=== PATIENT | male | born 1980 | race African-American/Black ===

== ENCOUNTER 2019-03-13 12:16 | Emergency (ER) | payer OTHER ==
[~2019-03-13] VITALS: Ht 200.7 cm; Wt 95.3 kg
--- OUTSIDE RECORDS SUMMARY | 2019-03-13 12:19 | XMS REPORT ---
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 Active Henry Dicks OD Hypermetropia Medication List Medication Instructions Start Date Stop Date Generic Name NDC Status Provider Patient Instruction BACTRIM TABLET SULFAMETHOXAZOLE-TRIMETHOPRIM TABS 62354867598 Active Henry Dicks OD Active DESCOVY 200-25 MG ORAL TABLET EMTRICITABINE-TENOFOVIR AF 64438888709 Active Henry Dicks OD Active NORVIR TABLET RITONAVIR TABS 80454052626 Active Henry Dicks OD Active TRUVADA TABLET EMTRICITABINE-TENOFOVIR DF TABS 68119286501 Active Henry Dicks OD Active Procedures Code Procedure Name Date Entry Date Standard Description [id number] Dispensing Visit (UNLIVSTED OPHTHALMOLOGICAL SERVICE/PROCEDURE) 14:17:56 CDT [id number] New Patient Intermediate Opt - [id number] 09:47:53 CDT
--- OUTSIDE RECORDS SUMMARY | 2019-03-13 12:19 | XMS REPORT ---
[facility] Address Unknown Phone Unavailable Care Team Providers Care Glue Specialty Supervisor Name Role Phone UNKNOWN, REFFERING PP Unavailable Payers Payer Name Policy Type Policy Number Effective Date Expiration Date Problems This patient has no known problems. Allergies, Adverse Reactions, Alerts Allergy Name Allergy Type Status Severity Reaction(s) Onset Date Inactive Date Treating Clinician Comments No Known Allergies DA Active U 2019-02-28 00:00:00 ASPIRIN DA Active U 2005-10-16 00:00:00 No Known Contrast Allergies DA Active U 2005-10-16 00:00:00 No Known Food Allergies DA Active U 2005-10-16 00:00:00 No Known Other Allergies DA Active U 2005-10-16 00:00:00 Medications This patient has no known medications. Encounters Start Date/Time End Date/Time Encounter Type Admission Type Attending Clinicians Care Facility Care Department Encounter ID 2018-01-06 20:36:16 2018-01-06 20:36:16 Emergency [facility] MED [id number] 2016-09-16 15:48:00 2016-09-16 15:48:00 Emergency E [facility] MED [id number] Results Test Description Test Time Test Comments Text Results Atomic Results Result Comments - DUP AB/PEL/SC COMP 2019-02-28 11:31:00 Name: QUYEN COCHRAN [facility] : 1980 Age/S: 38 / M [address] Unit #: [id number] Loc: [place] [address] Phys: Kyra Lira MD Acct: [id number] Dis Date: Status: REG ER PHONE #: [phone] Exam Date: 02/28/2019 1110 FAX #: [phone] Reason: scrotal pain EXAMS: CPT CODE: [id number] DUP AB/PEL/SC COMP [id number] REASON FOR EXAM: testicular pain, vomiting EXAM ORDER DATE: 02/28/2019 8:52 AM Attending MBradley: Kyra Lira MD PROCEDURE: - US SCROTUM AND CNTS, - DUP AB/PEL/SC COMP Technique: Duplex scan was performed using grayscale imaging as well as color Doppler and spectral Doppler imaging of the testicles and epididymides. FINDINGS: Right Testicle: Size: 4.5 x 1.6 x 2.6 cm Parenchyma: Normal homogenous echogenicity Masses/calcifications: Testicular microliths are present. Flow: Normal blow is seen Right Epididymis: Size: 3.2 x 0.5 x 0.7 cm Masses: None Left Testicle: Size: 3.8 x 1.7 x 2.4 cm Parenchyma: Normal homogenous echogenicity Masses/calcifications: None Flow: Normal blow is seen Left Epididymis: Size: 2.6 x 0.3 x 0.7 cm Masses: None Hydrocele: Present bilaterally Varicocele: None Scrotal wall: Normal. No edema or mass. IMPRESSION: Right testicular microlithiasis. According to the Society of Urogenital Radiology (ESUR), annual ultrasound follow-up until age 55 is recommended, if one of the following risk factor are present: PAGE 1 Signed Report (CONTINUED) Name: QUYEN COCHRAN [facility] : 1980 Age/S: 38 / M [address] [facility] Unit #: [id number] Loc: [place] [address] Phys: Kyra Lira MD Acct: [id number] Dis Date: Status: REG ER PHONE #: [phone] Exam Date: 02/28/2019 1110 FAX #: [phone] Reason: scrotal pain EXAMS: CPT CODE: [id number] DUP AB/PEL/SC COMP 22081 <Continued> personal/family history of germ cell tumour maldescent orchidopexy testicular atrophy No evidence of torsion or orchitis. at 1131 Reported and signed by: Alli Felipe MD CC: Kyra Lira MD Technologist: ARNULFO COATS RT(R),SRINIVASA Trnohb Date/Time: 02/28/2019 (1131) [email or web address] PAGE 2 Signed Report - US SCROTUM AND CNTS 2019-02-28 11:31:00 [facility] 1980 [facility]S: 38 / M [address] [facility] [id number] Loc: [place] [address] Phys: Kyra Lira MD Acct: [id number] Dis Date: Status: REG ER PHONE #: [phone] Exam Date: 02/28/2019 1110 FAX #: [phone] Reason: testicular pain, vomiting EXAMS: CPT CODE: [id number] US SCROTUM AND CNTS 02997 REASON FOR EXAM: testicular pain, vomiting EXAM ORDER DATE: 02/28/2019 8:52 AM Attending M.D.: Kyra Lira MD PROCEDURE: - US SCROTUM AND CNTS, - DUP AB/PEL/SC COMP Technique: Duplex scan was performed using grayscale imaging as well as color Doppler and spectral Doppler imaging of the testicles and epididymides. FINDINGS: Right Testicle: Size: 4.5 x 1.6 x 2.6 cm Parenchyma: Normal homogenous echogenicity Masses/calcifications: Testicular microliths are present. Flow: Normal blow is seen Right Epididymis: Size: 3.2 x 0.5 x 0.7 cm Masses: None Left Testicle: Size: 3.8 x 1.7 x 2.4 cm Parenchyma: Normal homogenous echogenicity Masses/calcifications: None Flow: Normal blow is seen Left Epididymis: Size: 2.6 x 0.3 x 0.7 cm Masses: None Hydrocele: Present bilaterally Varicocele: None Scrotal wall: Normal. No edema or mass. IMPRESSION: Right testicular microlithiasis. According to the Society of Urogenital Radiology (ESUR), annual ultrasound follow-up until age 55 is recommended, if one of the following risk factor are present: PAGE 1 Signed Report (CONTINUED) [facility] 1980 Age/S: 38 / M [address] [facility] Unit #: [id number] Loc: [place] [address] Phys: Kyra Lira MD Acct: [id number] Dis Date: Status: REG ER PHONE #: [phone] Exam Date: 02/28/2019 1110 FAX #: [phone] Reason: testicular pain, vomiting EXAMS: CPT CODE: [id number] US SCROTUM AND CNTS 95709 <Continued> personal/family history of germ cell tumour maldescent orchidopexy testicular atrophy No evidence of torsion or orchitis. at 1131 Reported and signed by: Alli Felipe MD CC: Kyra Lira MD Technologist: ARNULFO COATS RT(R),RDMS Trnscb Date/Time: 02/28/2019 (1131) t.[email or web address] Orig Print D/T: S: 02/28/2019 (3480) Probe: PAGE 2 Signed Report DRUGS OF ABUSE SCREEN UR 2019-02-28 10:46:00 UA PH DIPSTICK (test code=SP) 6.0 5.0-8.0 URN COCAINE (test code=COCAURN) NEGATIVE <300 ng/mL URN CANNABINOIDS (test code=CANNABURN) POSITIVE <50 ng/mL This test provides only a preliminary test result. A morespecific alternate chemical method must be used in order toobtain a confirmed analytical result. Gas chromatography/mass spectrometry (GC/MS) is thepreferred confirmatory method. Other chemical confirmationmethods are available. Clinical consideration and professional judgment should be applied to any drug of abusetest result, particularly when preliminary positive resultsare used.Unconfirmed screening results must not be used fornon-medical purposes (e.g., employment testing, legaltesting). URN AMPHETAMINE (test code=AMPHETURN) NEGATIVE <1000 ng/mL URN BARBITURATE (test code=BARBITURN) NEGATIVE <200 ng/mL URN BENZODIAZEPINE (test code=BENZOURN) NEGATIVE <200 ng/mL URN OPIATES (test code=OPIATURN) POSITIVE <300 ng/mL This test provides only a preliminary test result. A morespecific alternate chemical method must be used in order toobtain a confirmed analytical result. Gas chromatography/mass spectrometry (GC/MS) is thepreferred confirmatory method. Other chemical confirmationmethods are available. Clinical consideration and professional judgment should be applied to any drug of abusetest result, particularly when preliminary positive resultsare used.Unconfirmed screening results must not be used fornon-medical purposes (e.g., employment testing, legaltesting). URN PHENCYCLIDINE (PCP) (test code=PHENCURN) NEGATIVE <25 ng/mL URN METHADONE (test code=METHAURN) NEGATIVE <300 ng/mL ADD ON AT 1002URINALYSIS [id number] 10:32:00* Test Item Value Reference Range Comments UA COLOR (test code=COLU) YELLOW YELLOW UA APPEARANCE (test code=APPU) CLEAR CLEAR UA GLUCOSE DIPSTICK (test code=DGLUU) NEGATIVE mg/dL NEGATIVE UA BILIRUBIN DIPSTICK (test code=BILU) NEGATIVE mg/dL NEGATIVE UA KETONE DIPSTICK (test code=KETU) NEGATIVE mg/dL NEGATIVE UA SPECIFIC GRAVITY (test code=SGU) 1.025 1.001-1.035 UA BLOOD DIPSTICK (test code=MARIEL) 0.2 mg/dL (2+) mg/dL NEGATIVE UA PH DIPSTICK (test code=SP) 6.0 5.0-8.0 UA PROTEIN DIPSTICK (test code=PROU) 30 (1+) mg/dL NEGATIVE UA UROBILINIOGEN DIPSTICK (test code=URO) 2.0 (1+) mg/dL NEGATIVE UA NITRITE DIPSTICK (test code=NANCY) NEGATIVE NEGATIVE UA LEUKOCYTE ESTERASE W REFLEX (test code=LEUUR) NEGATIVE Liset/uL NEGATIVE UA WBC (test code=WBCU) 0-5 per HPF 0-5 UA RBC (test code=RBCU) 21-50 #/HPF 0-5 UA EPITHELIAL CELLS (test code=EPIU) FEW per HPF FEW UA BACTERIA (test code=BACU) FEW #/HPF NONE UA HYALINE CAST (test code=HYALU) 0-2 #/LPF 0-5 UA MUCUS (test code=MUCU) FEW #/LPF FEW Urine Source? Clean CatchDRUGS OF ABUSE SCREEN [id number] 10:32:00* Test Item Value Reference Range Comments UA PH DIPSTICK (test code=SP) 6.0 5.0-8.0 URN COCAINE (test code=COCAURN) <300 ng/mL URN CANNABINOIDS (test code=CANNABURN) <50 ng/mL URN AMPHETAMINE (test code=AMPHETURN) <1000 ng/mL URN BARBITURATE (test code=BARBITURN) <200 ng/mL URN BENZODIAZEPINE (test code=BENZOURN) <200 ng/mL URN OPIATES (test code=OPIATURN) <300 ng/mL URN PHENCYCLIDINE (PCP) (test code=PHENCURN) <25 ng/mL URN METHADONE (test code=METHAURN) <300 ng/mL ADD ON AT [address] [place] [address] W/O [id number] 10:13:00* Test Item Value Reference Range Comments WHITE BLOOD CELL (test code=WBC) 8.5 K/mm3 4.5-12.5 RED BLOOD CELL (test code=RBC) 4.13 mill/mm3 4.0-5.8 HEMOGLOBIN (test code=HGB) 13.7 gram/dL 13.0-17.5 HEMATOCRIT (test code=HCT) 40.4 % 42.0-52.0 MEAN CELL VOLUME (test code=MCV) 97.8 fL 80-98 MEAN CELL HGB (test code=MCH) 33.2 picogram 27.0-33.0 MEAN CELL HGB CONCETRATION (test code=MCHC) 33.9 gram/dL 33.0-36.0 RED CELL DISTRIBUTION WIDTH (test code=RDW) 12.0 % 11.6-16.2 PLATELET COUNT (test code=PLT) 188 K/mm3 150-450 MEAN PLATELET VOLUME (test code=MPV) 11.4 fL 6.7-11.0 BASIC METABOLIC [id number] 10:10:00* Test Item Value Reference Range Comments SODIUM (test code=NA) 144 mmol/L 136-145 POTASSIUM (test code=K) 3.4 mmol/L 3.5-5.1 CHLORIDE (test code=CL) 110.0 mmol/L 98-107 CARBON DIOXIDE (test code=CO2) 20.0 mmol/L 21-32 ANION GAP (test code=GAP) 17.4 10-20 GLUCOSE (test code=GLU) 141 mg/dL 74-106 BLOOD UREA NITROGEN (test code=BUN) 12 mg/dL 7-18 GLOMERULAR FILTRATION RATE (test code=GFR) 51 mL/min >=60 Estimated GFR by using Modified MDRD formula.Chronic kidney disease is defined as either kidney damageor GFR <60 mL/min/1.73 m2 for >3 months. CREATININE (test code=CREAT) 1.80 mg/dL 0.7-1.3 BUN/CREATININE RATIO (test code=BUN/CREA) 6.9 10-20 CALCIUM (test code=CA) 9.8 mg/dL 8.5-10.1 HEPATIC FUNCTION [id number] 10:10:00* Test Item Value Reference Range Comments TOTAL PROTEIN (test code=PROT) 8.6 gram/dL 6.4-8.2 ALBUMIN (test code=ALB) 4.4 g/dL 3.4-5.0 GLOBULIN (test code=GLOB) 4.2 gram/dL 2.7-4.2 ALBUMIN/GLOBULIN RATIO (test code=A/G) 1.0 0.75-1.50 BILIRUBIN TOTAL (test code=BILT) 0.60 mg/dL 0.0-1.0 BILIRUBIN DIRECT (test code=BILD) 0.15 mg/dL 0.0-0.20 SGOT/AST (test code=AST) 17 IUnit/L 15-37 SGPT/ALT (test code=ALT) 19 IUnit/L 12-78 ALKALINE PHOSPHATASE TOTAL (test code=ALKP) 97 IUnit/L 45-117 Note change in reference range due to change in reagent. [id number] 10:10:00* Test Item Value Reference Range Comments LIPASE (test code=LIP) 123 U/L 73.0-393.0 [id number] 10:10:00* Test Item Value Reference Range Comments TROPONIN-I (test code=TROPI) <0.015 ng/mL 0-0.045 BASIC METABOLIC [id number] 09:58:00* Test Item Value Reference Range Comments SODIUM (test code=NA) 144 mmol/L 136-145 POTASSIUM (test code=K) 3.4 mmol/L 3.5-5.1 CHLORIDE (test code=CL) 110.0 mmol/L 98-107 CARBON DIOXIDE (test code=CO2) mmol/L 21-32 ANION GAP (test code=GAP) 10-20 GLUCOSE (test code=GLU) mg/dL 74-106 BLOOD UREA NITROGEN (test code=BUN) mg/dL 7-18 GLOMERULAR FILTRATION RATE (test code=GFR) mL/min >=60 CREATININE (test code=CREAT) mg/dL 0.7-1.3 BUN/CREATININE RATIO (test code=BUN/CREA) 10-20 CALCIUM (test code=CA) mg/dL 8.5-10.1 HEPATIC FUNCTION [id number] 09:58:00* Test Item Value Reference Range Comments TOTAL PROTEIN (test code=PROT) gram/dL 6.4-8.2 ALBUMIN (test code=ALB) g/dL 3.4-5.0 GLOBULIN (test code=GLOB) gram/dL 2.7-4.2 ALBUMIN/GLOBULIN RATIO (test code=A/G) 0.75-1.50 BILIRUBIN TOTAL (test code=BILT) mg/dL 0.0-1.0 BILIRUBIN DIRECT (test code=BILD) mg/dL 0.0-0.20 SGOT/AST (test code=AST) IUnit/L 15-37 SGPT/ALT (test code=ALT) IUnit/L 12-78 ALKALINE PHOSPHATASE TOTAL (test code=ALKP) IUnit/L 45-117 [id number] 09:58:00* Test Item Value Reference Range Comments LIPASE (test code=LIP) U/L 73.0-393.0 [id number] 09:58:00* Test Item Value Reference Range Comments TROPONIN-I (test code=TROPI) ng/mL 0-0.045 - CT ABD PELVIS W/O [id number] 09:34:00 Name: QUYEN COCHRAN [facility] : 1980 Age/S: 38 / M [address] [facility] Unit #: [id number] Loc: [place] [address] Phys: Kyra Lira MD Acct: [id number] Dis Date: Status: REG ER PHONE #: [phone] Exam Date: 02/28/2019904 FAX #: [phone] Reason: LLQ ttp, vomiting EXAMS: CPT CODE: [id number] CT ABD PELVIS W/O CONT [id number] REASON FOR EXAM: LLQ ttp, vomiting EXAM ORDER DATE: 02/28/2019 8:52 AM Ordering M.D.: Kyra Lira MD PROCEDURE: - CT ABD PELVIS W/O CONT noncontrast axial CT images were acquired through the abdomen/pelvis at 5 mm intervals. Sagittal and coronal reformatted images were generated. Automated exposure control was utilized for this reduction. Phases of contrast: None COMPARISON: CT abdomen and pelvis February 24, 2019 FINDINGS: The absence of IV contrast limits sensitivity of this exam for the detection of soft tissue pathology Visualized thorax: There are cysts in the right lung base is unchanged from the prior exam and may be sequela from prior bronchiolitis. Otherwise visualized thorax is grossly within normal limits Hepato biliary system: Grossly normal Pancreas: Grossly normal Spleen: Grossly normal Adrenal glands: Grossly normal Genitourinary system: There is a 7 mm calyceal stone in the inferior pole of the left kidney which is unchanged from the previous study. There are a few cystic lesions scattered throughout both kidneys which are moshe sly unchanged. No hydronephrosis or hydroureter and no perinephric or chuck ureteral fat stranding to suggest inflammation. Remainder of the genitouri nary system is within normal limits. The left testicle which was previousl y seen in the inguinal canal is now in the scrotal sac. Shirley rointestinal tract and appendix: Appendix is not clearly visualized howeve r there are no inflammatory changes in the right lower abdomen in the expe cted region of the appendix. PAGE 1 Signed Re port (CONTINUED) Name: SAMMIEQUYEN T [facility] : 1980 Age/S: 38 / M [address] Unit #: [id number] Loc: [place] [address] Phys: Kyra Lira MD Acct: [id number] Dis Date: Status: REG ER PHONE #: [phone] Exam Date: 02/28/2019 09 FAX #: [phone] Reason: LLQ ttp, vomiting EXAMS: CPT CODE: [id number] CT ABD PELVIS W/O CONT 76134 <Continued> Abdominal vascular structures: Circumaortic left renal vein. Mild atherosclerotic disease in the iliac arteries. These findings are unchanged. Peritoneum and retroperitoneum: No free fluid or free air. No omental or mesenteric masses. No abnormal lymph nodes. Musculoskeletal structures and abdominal wall: There is disc degeneration at L5-S1, also seen on the prior exam. Otherwise no changes IMPRESSION: No significant change from prior examination. Nonobstructing 7 mm left renal stone is unchanged from the prior exam. The patient's left lower quadrant pain may reflect referred pain from the stone. However no inflammatory changes are seen in the left kidney or left ureter. No abnormalities of the gastrointestinal tract in the left lower abdomen. Location: [facility] at 0934 Reported and signed by: Alli Felipe MD CC: Kyra Lira MD Technologist:Radames Chang RT(R),(MR),(CT) CTDI: DLP: Trnscb Date/Time: 02/28/2019 (0934) [email or web address] Orig Print D/T: S: 02/28/2019 (0937) PAGE 2 Signed Report - CT ABD PELVIS W/O [id number] 16:32:00 Name: QUYEN COCHRAN [facility] : 1980 Age/S: 38 / M [address] [facility] Unit #: [id number] Loc: [place] [address] Phys: Trudy Benjamin NP Acct: [id number] Dis Date: Status: REG ER PHONE #: [phone] Exam Date: 02/24/2019 1430 FAX #: [phone] Reason: abdominal pain EXAMS: CPT CODE: [id number] CT ABD PELVIS W/O CONT [id number] REASON FOR EXAM: abdominal pain EXAM ORDER DATE: 02/24/2019 2:18 PM Ordering Annetta: Trudy Benjamin NP PROCEDURE: - CT ABD PELVIS W/O CONT noncontrast axial CT images were acquired through the abdomen/pelvis at 5 mm intervals. Sagittal and coronal reformatted images were generated. Automated exposure control was utilized for this reduction. Phases of contrast: None COMPARISON: None FINDINGS: The absence of IV contrast limits sensitivity of this exam for the detection of soft tissue pathology Visualized thorax: There is an air cyst in the right lung base measuring 4.7 x 3.3 cm cross-sectionally which may be sequela of prior bronchiolitis. This is likely a benign finding. Otherwise the visualized thorax is grossly within normal limits Hepatobiliary system: Grossly normal Pancreas: Grossly normal Spleen: Grossly normal Adrenal glands: Grossly normal Genitourinary system: Nonobstructing stone in the lower pole of the right kidney measures up to 7 mm in size. No inflammatory changes in the perinephric fat the left testicle appears to be in the inguinal canal. Gastrointestinal tract and appendix: Appendix is not visualized however there are no inflammatory changes in the lower quadrant at the expected region of the appendix. Remainder of the gastrointestinal tract is grossly within normal limits Abdominal vascular structures: Circumaortic left renal vein. Mild atherosclerotic disease in the common iliac arteries. Otherwise PAGE 1 Signed Report (CONTINUED) Name: QUYEN COCHRAN [facility] : 1980 Age/S: 38 / M [address] [facility] Unit #: [id number] Loc: [place] [address] Phys: Trudy Benjamin NP Acct: [id number] Dis Date: Status: REG ER PHONE #: [phone] Exam Date: 02/24/2019 1430 FAX #: [phone] Reason: abdominal pain EXAMS: CPT CODE: [id number] CT ABD PELVIS W/O CONT 83754 < Continued> grossly normal Peritoneum and retroperitoneum: No free fluid or free air. No omental or mesenteric masses. No abnormal lymph nodes. Musculoskeletal structures and abdominal wall: Disc degeneration is seen at L5-S1 with vacuum phenomenon. Otherwise grossly normal IMPRESSION: Nonobstructing 7 mm stone in the inferior pole of the left kidney. No stranding of the perinephric fat to suggest inflammatory changes of the left kidney. The left testicle appears to be within the inguinal canal. Correlate with physical exam. Location: [facility] at 1632 Reported and signed by: Alli Felipe MD CC: Trudy Benjamin STAFF REGISTERED NURSE; Melyssa Ramirez DO Technologist:Pavel Maciel RT(R) CTDI: DLP: Trnscb Date/Time: 02/24/2019 (522) [id number] Orig Print D/T: S: 02/24/2019 (8565) PAGE 2 Signed Report DRUGS OF ABUSE SCREEN 2019-02-24 16:19:00* Test Item Value Reference Range Comments UA PH DIPSTICK (test code=SP) 7.0 5.0-8.0 URN COCAINE (test code=COCAURN) NEGATIVE <300 ng/mL URN CANNABINOIDS (test code=CANNABURN) POSITIVE <50 ng/mL This test provides only a preliminary test result. A morespecific alternate chemical method must be used in order toobtain a confirmed analytical result. Gas chromatography/mass spectrometry (GC/MS) is thepreferred confirmatory method. Other chemical confirmationmethods are available. Clinical consideration and professional judgment should be applied to any drug of abusetest result, particularly when preliminary positive resultsare used.Unconfirmed screening results must not be used fornon-medical purposes (e.g., employment testing, legaltesting). URN AMPHETAMINE (test code=AMPHETURN) NEGATIVE <1000 ng/mL URN BARBITURATE (test code=BARBITURN) NEGATIVE <200 ng/mL URN BENZODIAZEPINE (test code=BENZOURN) NEGATIVE <200 ng/mL URN OPIATES (test code=OPIATURN) POSITIVE <300 ng/mL This test provides only a preliminary test result. A morespecific alternate chemical method must be used in order toobtain a confirmed analytical result. Gas chromatography/mass spectrometry (GC/MS) is thepreferred confirmatory method. Other chemical confirmationmethods are available. Clinical consideration and professional judgment should be applied to any drug of abusetest result, particularly when preliminary positive resultsare used.Unconfirmed screening results must not be used fornon-medical purposes (e.g., employment testing, legaltesting). URN PHENCYCLIDINE (PCP) (test code=PHENCURN) NEGATIVE <25 ng/mL URN METHADONE (test code=METHAURN) NEGATIVE <300 ng/mL DRUGS OF ABUSE SCREEN [id number] 16:07:00* Test Item Value Reference Range Comments UA PH DIPSTICK (test code=SP) 5.0-8.0 URN COCAINE (test code=COCAURN) NEGATIVE <300 ng/mL URN CANNABINOIDS (test code=CANNABURN) POSITIVE <50 ng/mL This test provides only a preliminary test result. A morespecific alternate chemical method must be used in order toobtain a confirmed analytical result. Gas chromatography/mass spectrometry (GC/MS) is thepreferred confirmatory method. Other chemical confirmationmethods are available. Clinical consideration and professional judgment should be applied to any drug of abusetest result, particularly when preliminary positive resultsare used.Unconfirmed screening results must not be used fornon-medical purposes (e.g., employment testing, legaltesting). URN AMPHETAMINE (test code=AMPHETURN) NEGATIVE <1000 ng/mL URN BARBITURATE (test code=BARBITURN) NEGATIVE <200 ng/mL URN BENZODIAZEPINE (test code=BENZOURN) NEGATIVE <200 ng/mL URN OPIATES (test code=OPIATURN) POSITIVE <300 ng/mL This test provides only a preliminary test result. A morespecific alternate chemical method must be used in order toobtain a confirmed analytical result. Gas chromatography/mass spectrometry (GC/MS) is thepreferred confirmatory method. Other chemical confirmationmethods are available. Clinical consideration and professional judgment should be applied to any drug of abusetest result, particularly when preliminary positive resultsare used.Unconfirmed screening results must not be used fornon-medical purposes (e.g., employment testing, legaltesting). URN PHENCYCLIDINE (PCP) (test code=PHENCURN) NEGATIVE <25 ng/mL URN METHADONE (test code=METHAURN) NEGATIVE <300 ng/mL URINALYSIS [id number] 15:47:00* Test Item Value Reference Range Comments UA COLOR (test code=COLU) YELLOW YELLOW UA APPEARANCE (test code=APPU) Cloudy CLEAR UA GLUCOSE DIPSTICK (test code=DGLUU) NEGATIVE mg/dL NEGATIVE UA BILIRUBIN DIPSTICK (test code=BILU) NEGATIVE mg/dL NEGATIVE UA KETONE DIPSTICK (test code=KETU) 20 (1+) mg/dL NEGATIVE UA SPECIFIC GRAVITY (test code=SGU) 1.024 1.001-1.035 UA BLOOD DIPSTICK (test code=MARIEL) 0.03 mg/dL (Trace) mg/dL NEGATIVE UA PH DIPSTICK (test code=SP) 7.0 5.0-8.0 UA PROTEIN DIPSTICK (test code=PROU) 50 (1+) mg/dL NEGATIVE UA UROBILINIOGEN DIPSTICK (test code=URO) 2.0 (1+) mg/dL NEGATIVE UA NITRITE DIPSTICK (test code=NANCY) NEGATIVE NEGATIVE UA LEUKOCYTE ESTERASE W REFLEX (test code=LEUUR) NEGATIVE Liset/uL NEGATIVE UA WBC (test code=WBCU) 0-5 per HPF 0-5 UA RBC (test code=RBCU) 11-20 #/HPF 0-5 UA EPITHELIAL CELLS (test code=EPIU) Rare (0-1/hpf) per HPF FEW UA BACTERIA (test code=BACU) FEW #/HPF NONE UA CALCIUM OXALATE CRYSTALS (test code=CAOXU) FEW #/HPF NONE UA MUCUS (test code=MUCU) MANY #/LPF FEW Urine Source? Clean CatchBASIC METABOLIC [id number] 14:12:00* Test Item Value Reference Range Comments SODIUM (test code=NA) 147 mmol/L 136-145 POTASSIUM (test code=K) 3.7 mmol/L 3.5-5.1 CHLORIDE (test code=CL) 112.0 mmol/L 98-107 CARBON DIOXIDE (test code=CO2) 24.0 mmol/L 21-32 ANION GAP (test code=GAP) 14.7 10-20 GLUCOSE (test code=GLU) 104 mg/dL 74-106 BLOOD UREA NITROGEN (test code=BUN) 13 mg/dL 7-18 GLOMERULAR FILTRATION RATE (test code=GFR) 54 mL/min >=60 Estimated GFR by using Modified MDRD formula.Chronic kidney disease is defined as either kidney damageor GFR <60 mL/min/1.73 m2 for >3 months. CREATININE (test code=CREAT) 1.70 mg/dL 0.7-1.3 BUN/CREATININE RATIO (test code=BUN/CREA) 7.6 10-20 CALCIUM (test code=CA) 9.9 mg/dL 8.5-10.1 HEPATIC FUNCTION [id number] 14:12:00* Test Item Value Reference Range Comments TOTAL PROTEIN (test code=PROT) 9.5 gram/dL 6.4-8.2 ALBUMIN (test code=ALB) 4.6 g/dL 3.4-5.0 GLOBULIN (test code=GLOB) 4.9 gram/dL 2.7-4.2 ALBUMIN/GLOBULIN RATIO (test code=A/G) 0.9 0.75-1.50 BILIRUBIN TOTAL (test code=BILT) 0.50 mg/dL 0.0-1.0 BILIRUBIN DIRECT (test code=BILD) 0.13 mg/dL 0.0-0.20 SGOT/AST (test code=AST) 15 IUnit/L 15-37 SGPT/ALT (test code=ALT) 24 IUnit/L 12-78 ALKALINE PHOSPHATASE TOTAL (test code=ALKP) 104 IUnit/L 45-117 Note change in reference range due to change in reagent. [id number] 14:12:00* Test Item Value Reference Range Comments LIPASE (test code=LIP) 80 U/L 73.0-393.0 BASIC METABOLIC [id number] 14:00:00* Test Item Value Reference Range Comments SODIUM (test code=NA) 147 mmol/L 136-145 POTASSIUM (test code=K) 3.7 mmol/L 3.5-5.1 CHLORIDE (test code=CL) 112.0 mmol/L 98-107 CARBON DIOXIDE (test code=CO2) mmol/L 21-32 ANION GAP (test code=GAP) 10-20 GLUCOSE (test code=GLU) mg/dL 74-106 BLOOD UREA NITROGEN (test code=BUN) mg/dL 7-18 GLOMERULAR FILTRATION RATE (test code=GFR) mL/min >=60 CREATININE (test code=CREAT) mg/dL 0.7-1.3 BUN/CREATININE RATIO (test code=BUN/CREA) 10-20 CALCIUM (test code=CA) mg/dL 8.5-10.1 HEPATIC FUNCTION [id number] 14:00:00* Test Item Value Reference Range Comments TOTAL PROTEIN (test code=PROT) gram/dL 6.4-8.2 ALBUMIN (test code=ALB) g/dL 3.4-5.0 GLOBULIN (test code=GLOB) gram/dL 2.7-4.2 ALBUMIN/GLOBULIN RATIO (test code=A/G) 0.75-1.50 BILIRUBIN TOTAL (test code=BILT) mg/dL 0.0-1.0 BILIRUBIN DIRECT (test code=BILD) mg/dL 0.0-0.20 SGOT/AST (test code=AST) IUnit/L 15-37 SGPT/ALT (test code=ALT) IUnit/L 12-78 ALKALINE PHOSPHATASE TOTAL (test code=ALKP) IUnit/L 45-117 [id number] 14:00:00* Test Item Value Reference Range Comments LIPASE (test code=LIP) U/L 73.0-393.0 CBC W/O [id number] 13:50:00* Test Item Value Reference Range Comments WHITE BLOOD CELL (test code=WBC) 13.2 K/mm3 4.5-12.5 RED BLOOD CELL (test code=RBC) 4.08 mill/mm3 4.0-5.8 HEMOGLOBIN (test code=HGB) 13.3 gram/dL 13.0-17.5 HEMATOCRIT (test code=HCT) 40.0 % 42.0-52.0 MEAN CELL VOLUME (test code=MCV) 98.0 fL 80-98 MEAN CELL HGB (test code=MCH) 32.6 picogram 27.0-33.0 MEAN CELL HGB CONCETRATION (test code=MCHC) 33.3 gram/dL 33.0-36.0 RED CELL DISTRIBUTION WIDTH (test code=RDW) 11.9 % 11.6-16.2 PLATELET COUNT (test code=PLT) 218 K/mm3 150-450 MEAN PLATELET VOLUME (test code=MPV) 10.4 fL 6.7-11.0 CBC W/O [id number] 13:49:00* Test Item Value Reference Range Comments WHITE BLOOD CELL (test code=WBC) K/mm3 4.5-12.5 RED BLOOD CELL (test code=RBC) mill/mm3 4.0-5.8 HEMOGLOBIN (test code=HGB) 13.3 gram/dL 13.0-17.5 HEMATOCRIT (test code=HCT) % 42.0-52.0 MEAN CELL VOLUME (test code=MCV) fL 80-98 MEAN CELL HGB (test code=MCH) picogram 27.0-33.0 MEAN CELL HGB CONCETRATION (test code=MCHC) gram/dL 33.0-36.0 RED CELL DISTRIBUTION WIDTH (test code=RDW) % 11.6-16.2 PLATELET COUNT (test code=PLT) K/mm3 150-450 MEAN PLATELET VOLUME (test code=MPV) fL 6.7-11.0
[2019-03-13] MEDS ORDERED: MORPHINE SULFATE INJ 4 MG/ML INJ 1ML IV STA (13:15)
[2019-03-13] MEDS ORDERED: SODIUM CHLORIDE 0.9% 1000ML 1,000 ML IV STA ×2 (13:15)
[2019-03-13] MEDS ORDERED: ONDANSETRON HCL INJ 2MG/ML 2ML 2 MG/ML VIAL IV STA (13:15)
[2019-03-13] MEDS ORDERED: FAMOTIDINE 20 MG/2 ML VIAL IV STA (13:15)
[2019-03-13] MEDS ORDERED: CEFTRIAXONE SOD 1 GM/NS 50 ML 50 ML IV STA (13:15)
[2019-03-13 14:20] LABS: BASOPHILS % 0.3 % (0.0-1.0); EOSINOPHILS # (AUTO) 0.1 (0.0-0.4); HEMATOCRIT 33.3 % (38.2-49.6); HEMOGLOBIN 11.5 g/dL (14.0-18.0); LYMPHOCYTES % 33.1 % (18.0-39.1); MEAN CORPUSCULAR HEMOGLOBIN 32.8 pg (28-32); MEAN CORPUSCULAR HGB CONC 34.5 g/dL (31-35); MEAN CORPUSCULAR VOLUME 94.9 fL (81-99); MONOCYTES # (AUTO) 0.3 (0.2-0.8); MONOCYTES % 10.8 % (4.4-11.3); NEUTROPHILS # (AUTO) 1.6 (2.1-6.9); NEUTROPHILS % 53.1 % (38.7-80.0); PLATELET COUNT 189 x10e3/uL (140-360); RED BLOOD COUNT 3.51 x10e6/uL (4.3-5.7); RED CELL DISTRIBUTION WIDTH 11.7 % (11.7-14.4)
[2019-03-13 14:40] LABS: ALANINE AMINOTRANSFERASE 31 IU/L (0-55); ALBUMIN 3.8 g/dL (3.5-5.0); ALKALINE PHOSPHATASE 75 IU/L (40-150); ANION GAP 13.6 mmol/L (8-16); BLOOD UREA NITROGEN 10 mg/dL (7-26); BUN/CREATININE RATIO 7 (6-25); CALCIUM 9.5 mg/dL (8.4-10.2); CARBON DIOXIDE 23 mmol/L (22-29); CHLORIDE 103 mmol/L (98-107); CREATININE, SERUM 1.48 mg/dL (0.72-1.25); EST GLOMERULAR FILTRATION RATE > 60 ML/MIN (60-); GLUCOSE 84 mg/dL (74-118); LIPASE 12 U/L (8-78); MAGNESIUM 1.7 MG/DL (1.3-2.1); POTASSIUM 3.6 mmol/L (3.5-5.1); SODIUM 136 mmol/L (136-145)
[2019-03-13] MEDS ORDERED: METRONIDAZOLE 500MG/NS 100ML 100 ML IV ONE (14:45)
--- NOTE | 2019-03-13 14:49 | Diagnostic Imaging Report ---
Chest, 1 view, 03/13/2019. History: Abdominal pain and vomiting. Comparison: None available. Findings: The cardiomediastinal silhouette and pulmonary vasculature are within normal limits for a portable exam. There is no focal consolidation or pleural effusion. There are no acute osseous or soft tissue abnormalities. Impression: No acute cardiopulmonary abnormality. Signed by: Wesly Solorio on 03/13/2019 2:46 PM
[2019-03-13 15:04] LABS: ACETAMINOPHEN < 3 ug/mL (10-30); SALICYLATE < 5.0 mg/dL (0-30)
[2019-03-13 16:06] LABS: BILIRUBIN,URINE SMALL (NEGATIVE); CLARITY,URINE SL CLOUDY (CLEAR); COLOR,URINE YELLOW (YELLOW); KETONES,URINE TRACE (NEGATIVE); LEUKOCYTE ESTERASE ,URINE NEGATIVE (NEGATIVE); NITRITE,URINE NEGATIVE (NEGATIVE); PROTEIN,URINE DIPSTICK TRACE (NEGATIVE); URINE UROBILINOGEN 1 mg/dL (0.2 - 1)
[2019-03-13 16:13] LABS: AMPHETAMINES SCREEN,URINE NEGATIVE (NEGATIVE); BENZODIAZEPINES SCREEN,URINE NEGATIVE (NEGATIVE); PHENCYCLIDINE SCREEN,URINE NEGATIVE (NEGATIVE)
[2019-03-13 16:21] LABS: CALCIUM CARBONATE CRYSTALS,UR MANY
--- NOTE | 2019-03-13 16:30 | Diagnostic Imaging Report ---
CT of the abdomen and pelvis, without contrast, 03/13/2019. History: Epigastric pain, vomiting. Comparison: None available. Technique: Multidetector CT scanning of the abdomen and pelvis was performed from the level of the lung bases to the inferior pubic rami without intravenous contrast. Patient was unable to tolerate oral contrast. Coronal and sagittal multiplanar reformations were obtained. RADIATION DOSE: Total DLP: 304 mGy*cm Dose modulation, iterative reconstruction, and/or weight based adjustment of the mA/kV was utilized to reduce the radiation dose to as low as reasonably achievable. Discussion: Examination is limited without contrast. Lung bases: Right lower lobe bulla is present. Abdomen: A 6 mm stone is present in the lower pole of the left kidney. Several round hypodense lesions are present within the left kidney measuring up to 1.4 cm, ranging from 15-20 Hounsfield units in density. Additional subcentimeter hypodensities are present in both kidneys which are too small to characterize. The liver, gallbladder, biliary tree, spleen, pancreas, adrenal glands, and kidneys are unremarkable. The abdominal aorta is within normal limits. A circumaortic left renal vein is present. Evaluation of bowel is limited without oral contrast. There is no bowel dilatation. Questionable mild diffuse wall thickening versus nondistention of the descending and sigmoid colon. Scattered nonspecific subcentimeter mesenteric nodes are present. There is no evidence of adenopathy or free fluid. Pelvis: The bladder, prostate, and seminal vesicles are unremarkable. There is no evidence of free fluid or adenopathy. Bones and soft tissues: Degenerative changes are present throughout the lumbar spine without evidence of lytic or sclerotic lesion. IMPRESSION: 1. Nonobstructing subcentimeter left renal calculus. 2. Possible hyperdense left renal cysts. These may be further evaluated with renal ultrasound. 3. Possible thickening of the distal colon which may represent infectious/inflammatory colitis. No evidence of perforation or abscess. Signed by: Wesly Solorio on 03/13/2019 4:27 PM
[2019-03-13] MEDS ORDERED: LEVOFLOXACIN 500 MG TAB PO ONE (16:45)
[2019-03-13] MEDS ORDERED: LEVOFLOXACIN 250 MG TAB PO ONE (16:45)
[2019-03-13 21:31] LABS: EOSINOPHILS % (MANUAL) 3 % (0-7); LYMPHOCYTES % (MANUAL) 28 % (19-48); METAMYELOCYTES % (MANUAL) 1 % (0-0); MONOCYTES % (MANUAL) 8 % (3.4-9.0); NEUTROPHILS % (MANUAL) 50 % (40-74)
[2019-03-13 21:32] LABS: ANISOCYTOSIS SLIGHT; HOWELL-JOLLY BODIES FEW; PLATELET ESTIMATE ADEQUATE; PLATELET MORPHOLOGY COMMENT NORMAL; RBC MORPHOLOGY COMMENT NORMAL
[2019-03-13] MEDS ORDERED: IOPAMIDOL 370 MG/ML 200 ML INFUS..BTL INJ ONE (22:19)
[2019-03-13] MEDS ORDERED: SODIUM CHLORIDE 0.9% 50ML 50 ML ONE (22:19)
[2019-03-14] MEDS ORDERED: HYDROCHLOROTHIA25 MG PO (16:18)
== END 2019-03-13 17:09 | disposition home or self-care (01) ==
LOC: ER 12:16
DX: R10.30 Lower abdominal pain, unspecified (principal); R11.2 Nausea with vomiting, unspecified; K52.9 Noninfective gastroenteritis and colitis, unspecified; I10 Essential (primary) hypertension; B20 Human immunodeficiency virus [HIV] disease
CPT/HCPCS: 36415; 71045; 74177; 80053; 80307; 80320; 80329 ×2; 81001; 83690; 83735; 85025; 87040; 87086; 93005; 99284; J0696; J2270; J2405; J7030; Q9967

== ENCOUNTER 2019-03-14 10:17 | Inpatient (IN) | payer OTHER ==
[~2019-03-14] VITALS: Ht 160 cm; Wt 95.3 kg
[2019-03-14] MEDS ORDERED: ONDANSETRON HCL INJ 2MG/ML 2ML 2 MG/ML VIAL IV STA (10:21)
[2019-03-14] MEDS ORDERED: MORPHINE SULFATE INJ 4 MG/ML INJ 1ML IV STA (10:21)
[2019-03-14] MEDS ORDERED: METRONIDAZOLE 500MG/NS 100ML 100 ML IV STA (10:21)
[2019-03-14] MEDS ORDERED: SODIUM CHLORIDE 0.9% 1000ML 1,000 ML IV STA (10:21)
[2019-03-14] MEDS ORDERED: PROMETHAZINE 25MG/ NS 50ML (IV) IV ONE (10:30)
--- NOTE | 2019-03-14 12:35 | Diagnostic Imaging Report ---
EXAM: CT Abdomen and Pelvis WITHOUT intravenous contrast INDICATION: Abdominal pain COMPARISON: CT abdomen pelvis of 03/13/2019 TECHNIQUE: Abdomen and pelvis were scanned utilizing a multidetector helical scanner from the lung base to the pubic symphysis without administration of IV contrast. Coronal and sagittal reformations were obtained. IV CONTRAST: None ORAL CONTRAST: Water COMPLICATIONS: None RADIATION DOSE: Total DLP: 262.5 mGy*cm Dose modulation, iterative reconstruction, and/or weight based adjustment of the mA/kV was utilized to reduce the radiation dose to as low as reasonably achievable. FINDINGS: LOWER THORAX: Emphysematous changes with a right lower lobe 4.8 cm bulla. HEPATOBILIARY: No focal hepatic lesions. Vicarious excretion of contrast material within the gallbladder. SPLEEN: No splenomegaly. PANCREAS: No focal masses or ductal dilatation. ADRENALS: No adrenal nodules. KIDNEYS/URETERS: No hydronephrosis or hydroureter. Unchanged 6.0 mm left lower pole renal calculus. Unchanged bilateral renal cysts. PELVIC ORGANS/BLADDER: Unremarkable. PERITONEUM / RETROPERITONEUM: No free air or fluid. LYMPH NODES: No lymphadenopathy. VESSELS: Minimal scattered atherosclerotic calcifications. GI TRACT: No distention or wall thickening. BONES AND SOFT TISSUES: Unremarkable. IMPRESSION: Unchanged left lower pole nonobstructive renal calculus and bilateral renal cysts. Signed by: Sommer Patricia MD on 03/14/2019 12:32 PM
[2019-03-14 12:42] LABS: BASOPHILS % 0.3 % (0.0-1.0); EOSINOPHILS % 0.3 % (0.0-6.0); HEMATOCRIT 31.2 % (38.2-49.6); HEMOGLOBIN 10.6 g/dL (14.0-18.0); LYMPHOCYTES # (AUTO) 0.8 (1.0-3.2); LYMPHOCYTES % 24.8 % (18.0-39.1); MEAN CORPUSCULAR HEMOGLOBIN 32.4 pg (28-32); MEAN CORPUSCULAR VOLUME 95.4 fL (81-99); MONOCYTES # (AUTO) 0.2 (0.2-0.8); MONOCYTES % 5.5 % (4.4-11.3); NEUTROPHILS # (AUTO) 2.1 (2.1-6.9); NEUTROPHILS % 68.8 % (38.7-80.0); PLATELET COUNT 159 x10e3/uL (140-360); RED BLOOD COUNT 3.27 x10e6/uL (4.3-5.7); RED CELL DISTRIBUTION WIDTH 11.8 % (11.7-14.4)
[2019-03-14 12:57] LABS: ALANINE AMINOTRANSFERASE 24 IU/L (0-55); ALBUMIN 3.5 g/dL (3.5-5.0); ALBUMIN/GLOBULIN RATIO 0.9 (0.8-2.0); ALKALINE PHOSPHATASE 69 IU/L (40-150); ANION GAP 15.3 mmol/L (8-16); BLOOD UREA NITROGEN 9 mg/dL (7-26); BUN/CREATININE RATIO 7 (6-25); CALCIUM 8.7 mg/dL (8.4-10.2); CARBON DIOXIDE 19 mmol/L (22-29); CHLORIDE 106 mmol/L (98-107); CREATININE, SERUM 1.34 mg/dL (0.72-1.25); EST GLOMERULAR FILTRATION RATE > 60 ML/MIN (60-); GLUCOSE 90 mg/dL (74-118); LIPASE 15 U/L (8-78); POTASSIUM 4.3 mmol/L (3.5-5.1); SODIUM 136 mmol/L (136-145)
[2019-03-14] MEDS ORDERED: MORPHINE SULFATE 2 MG/ML SYR 1ML IV PRN (13:15)
[2019-03-14 13:22] LABS: LYMPHOCYTES % (MANUAL) 24 % (19-48); MONOCYTES % (MANUAL) 5 % (3.4-9.0); NEUTROPHILS % (MANUAL) 69 % (40-74)
[2019-03-14 13:23] LABS: PLATELET ESTIMATE ADEQUATE; PLATELET MORPHOLOGY COMMENT NORMAL; RBC MORPHOLOGY COMMENT NORMAL
[2019-03-14] MEDS: CIPROFLOXACIN 400 MG/D5W 200ML 200 ML IV SCH (14:38)
[2019-03-14] MEDS: SODIUM CHLORIDE 0.9% 1000ML 1,000 ML IV SCH ×2 (14:38→21:08)
[2019-03-14] MEDS: MORPHINE SULFATE INJ 4 MG/ML INJ 1ML IV PRN ×2 (14:43→21:00)
[2019-03-14] MEDS: ONDANSETRON HCL INJ 2MG/ML 2ML 2 MG/ML VIAL IV PRN (14:43)
--- NOTE | 2019-03-14 15:05 | NUR ---
RCD PT FROM ER BY BED PT IS ALERT AND ORIENTED PT RESTING ON BED VITALS CHECKED ADMISSION ASSESSMENT AND HISTORY DONE IV PATENT AND RUNNING 125 ML/HR PT DENIES PAIN ,FAMILY AT BED SIDE INSTRUCTED PT AND FAMILY REGARDING HOSPITAL POLICY AND ROUTINE BED LOW AND LOCKED CALL LIGHT IN REACH
[2019-03-14] MEDS ORDERED: HYDROCHLOROTHIA25 MG PO (16:18)
[2019-03-14 16:25] VITALS: BP 119/61
[2019-03-14 16:34] VITALS: BP 119/61
--- NOTE | 2019-03-14 18:45 | NUR ---
PT RESTING ON BED BED SIDE REPORT GIVEN TO ONCOMING NURSE
--- NOTE | 2019-03-14 19:25 | NUR ---
Received patient from day nurse, patient is alert and oriented x 4. patient is on room air. safety and fall precautions maintained as per hospital protocol.
--- NOTE | 2019-03-14 19:30 | NUR ---
Dr. Huang was here and made aware of GI consult, placed in order for protonix.
--- NOTE | 2019-03-14 19:46 | NUR ---
Dr. CRAIG called back concerning consult and states will see patient.
[2019-03-14 20:00] VITALS: BP 133/82
[2019-03-14] MEDS ORDERED: PANTOPRAZOLE SOD 40 MG TABEC PO NR (21:00)
[2019-03-14 21:08] VITALS: BP 133/82
[2019-03-14] MEDS: METRONIDAZOLE 500MG/NS 100ML 100 ML IV SCH (21:26)
[2019-03-15] VITALS (8 sets, daily range): BP systolic 118–157; BP diastolic 71–99
[2019-03-15] MEDS: CIPROFLOXACIN 400 MG/D5W 200ML 200 ML IV SCH ×2 (02:45→14:00)
[2019-03-15] MEDS: SODIUM CHLORIDE 0.9% 1000ML 1,000 ML IV SCH ×3 (05:08→20:51)
--- NOTE | 2019-03-15 06:48 | NUR ---
patient endorsed to next shift for continuity of care.
--- NOTE | 2019-03-15 07:10 | NUR ---
RCD PT AT BED PT IS ALERT AND ORIENTED PT RESTING ON BED NO SIGNS OF ANY DISTRESS NOTED IV PATENT BY SALINE FLUSH FAMILY AT BED SIDE BED LOW AND LOCKED CALL LIGHT IN REACH
[2019-03-15] MEDS: PANTOPRAZOLE SOD 40 MG TABEC PO SCH (07:30)
[2019-03-15] MEDS: MORPHINE SULFATE INJ 4 MG/ML INJ 1ML IV PRN ×2 (07:52→18:45)
[2019-03-15] MEDS: ONDANSETRON HCL INJ 2MG/ML 2ML 2 MG/ML VIAL IV PRN ×2 (07:52→18:48)
[2019-03-15] MEDS: METRONIDAZOLE 500MG/NS 100ML 100 ML IV SCH ×2 (09:00→20:51)
[2019-03-15] MEDS: HYDROCHLOROTHIAZIDE 25 MG TAB PO SCH (12:00)
--- NOTE | 2019-03-15 14:42 | NUR ---
WOUND CARE SCREENING DONE R/T PUP SCORE 12 UPON ASSESSMENT OF PATIENT AND FURTHER DOCUMENTATION NOTED PATIENT PUP 21 WITH NO WOUNDS OR SKIN ALTERATIONS NOTED NURSING TO CONSULT WOUND CARE FOR ANY SKIN CARE CONCERNS OR ASSISTANCE WITH SKIN PROTECTION Addendum: 03/15/19 at 1446 by Terrence Villalba RN Amended: Links added.
--- NOTE | 2019-03-15 15:16 | Consultation ---
DATE OF CONSULTATION: 03/15/2019 Urology Consultation REASON FOR CONSULTATION: Kidney stone. 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 The patient has a known left-sided stone. Apparently, [place] and told that "it did need to be messed with" because it is nonobstructing. The patient was admitted with nausea and vomiting, abdominal pain, and urological consultation was sought for the stone. The patient also reports some decreased urinary force of stream and some hesitancy. He denies any urinary incontinence. PAST MEDICAL AND SURGICAL HISTORY: 1. HIV positive. 2. 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 SOCIAL HISTORY: The patient denies current smoking an ethanol. There is a positive cannabis in his toxicology screen. FAMILY HISTORY: Noncontributory to the active urological problems. CURRENT MEDICATIONS: Please refer to the MAR. ALLERGIES: NONE KNOWN. REVIEW OF SYSTEMS: Otherwise consistent with above history of present illness and past medical history, otherwise negative for all systems. PHYSICAL EXAMINATION: GENERAL: Healthy-appearing 38-year-old man, walking around the room, in no apparent distress. VITAL SIGNS: He is currently afebrile. Vital signs are currently stable. ABDOMEN: Soft, nondistended, and nontender without costovertebral angle tenderness. No obvious evidence of hernia. GENITOURINARY: Testes are descended bilaterally. The right testis is somewhat retractile. It is also atrophic and minimally sensitive. The patient has a circumcised male phallus with a meatus that is barely hypospadiac. Digital rectal examination is deferred at the present time. For the remaining physical examination systems, please refer to the admission history and physical in the chart. LABORATORY STUDIES: The patient's CT scan of the abdomen and pelvis revealed a 6 mm stone in the left lower pole and bilateral renal cysts. White blood cell count is low at 3110, hemoglobin 10.6, and platelets 159,000. Creatinine is 1.34, which is elevated. Previous urinalysis showed microhematuria and crystalluria. ASSESSMENT: 1. Leukopenia. 2. Anemia. 3. Presumably acute renal failure. 4. Microscopic hematuria. 5. Left lower pole nephrolithiasis. 6. Bilateral renal cysts. 7. Human immunodeficiency virus positive. 8. Nausea and vomiting. 9. Abdominal pain. 10. Decreased urinary force of stream. 11. Glandular hypospadias. 12. Atrophic right testis. PLAN: 1. Defer the abdominal pain management to the button clamper on the case. 2. The patient will need ongoing urological followup for left ESWL in conjunction with cystoscopy and retrograde pyelograms to evaluate his urinary channel. 3. Defer the abdominal pains to the Gastroenterology Service. 4. Defer the hematological and electrolyte abnormalities to the primary physician. Thank you very much for involving us in the care of your patient. We will be happy to follow him along with you as well as an outpatient. Iron Sim MD [place]/MODL /[id number] cc: Garth Del Rosario MD
--- NOTE | 2019-03-15 15:39 | NUR ---
ACCORDING TO DR OROZCO PT CAN TAKE HIS OWN HIV HOME MEDS INSTRUCTED THE PT AND FAMILY THEY SAID THEY WILL DO IT
--- NOTE | 2019-03-15 15:56 | Consultation ---
DATE OF CONSULTATION: 03/15/2019 REASON FOR CONSULTATION: HIV and abdominal pain. HISTORY OF PRESENT ILLNESS: This patient, who is a 38-year-old male, history of HIV for several years, history of renal stone. The patient had right undescended testicle, status post orchiopexy as a child, comes in with fever, chills, nausea, vomiting, and abdominal pain for the last 4 weeks. He has been to 4 different emergency room without improvement, comes into the hospital where he is being admitted, complaining of nausea and vomiting. He has been losing some weight because of diffuse abdominal pain. PAST MEDICAL HISTORY: Significant for HIV. He is telling me his viral load is undetectable. He does know what his CD4 cell count. He was not compliant with the medication recently, but he just got his medication. ALLERGIES: NKA. SOCIAL HISTORY: There is currently no smoking, drug abuse, or alcohol abuse. FAMILY HISTORY: Noncontributory. REVIEW OF SYSTEMS: At present time, HEENT: There is no headache, visual changes, or hearing changes. GI: There is nausea, vomiting, and abdominal pain. : There is no urgency or frequency. SKIN: There is no rash. PHYSICAL EXAMINATION: GENERAL: He is currently alert and oriented. Does not seem to be in acute distress. VITAL SIGNS: Stable, afebrile, temperature 96.7, heart rate 92, and respirations 18. HEENT: Normocephalic. Not icteric. NECK: Supple. CHEST: Clear. HEART: S1 and S2. No S3, S4, or murmur. ABDOMEN: Soft. Diffuse discomfort. EXTREMITIES: No edema. SKIN: No rash. LABORATORY DATA: A CAT scan was done showed the lower thoraxes emphysematous changes of the right lower lobe, 4.8 cm bolus. The abdomen showed atherosclerosis disease. White count 3.1, hemoglobin 10, and hematocrit of 31. Sodium 136, potassium 4.3, and creatinine 1.34. Liver enzyme within normal limit. Amylase within normal limit. IMPRESSION: 1. Nausea, vomiting, and abdominal pain. Recommendation, EGD and colonoscopy. 2. Human immunodeficiency virus. Resume all other medication. He said he is not able to take it. We will follow with you. MD AYSHA Morales/TRAVIS /[id number]
--- NOTE | 2019-03-15 18:53 | NUR ---
PT RESTING ON BED BED SIDE REPORT GIVEN TO ONCOMING NURSE
--- NOTE | 2019-03-15 20:58 | Consultation ---
DATE OF CONSULTATION: HISTORY OF PRESENT ILLNESS: A 38-year-old black gentleman with history of HIV. Infectious Disease evaluated him today. Past history of undescended testicle as a child, has been back and forth 5 times to the different emergency rooms with abdominal pain, finally got admitted to our hospital, describes pain in his lower abdomen, constant, severe, sharp, aching, no aggravating factor, better when he belch or pass gas, associated with nausea and vomiting at home, but no nausea or vomiting witnessed in our hospital, subjective fever, subjective weight loss, associated with some heartburn and acid reflux, but no dysphagia, no bloating. He feels constipated. No blood in his stool, but lots of mucus. No family history of colon cancer and no regular use of nonsteroidal anti-inflammatory drugs. ALLERGIES: NONE. CURRENT MEDICATIONS: 1. Cipro. 2. Hydrochlorothiazide. 3. Flagyl. 4. Morphine. 5. Zofran. 6. Protonix. SOCIAL HISTORY: Currently, he does not smoke, he does not drink and he does not do drugs. PAST SURGICAL HISTORY: As above. FAMILY MEDICAL HISTORY: Noncontributory. REVIEW OF SYSTEMS: Unremarkable. PHYSICAL EXAMINATION: GENERAL: Awake, alert, oriented, hemodynamically stable. VITAL SIGNS: Temperature 99 and blood pressure 130/86. NECK: Supple. No node or mass. LUNGS: Clear to auscultation. HEART: Irregularly irregular rhythm. ABDOMEN: Soft, very tender on palpation. No acute sign. Bowel sounds present. Not distended. EXTREMITIES: No edema. CENTRAL NERVOUS: Motor function grossly intact. LABORATORY DATA: White cell count 3.1, hemoglobin 10, hematocrit 31, and platelet 109. Liver function unremarkable. BUN and creatinine normal. Sodium 136 and potassium is 4.3. CT scan of the abdomen done without contrast only show a left kidney stone. Blood and urine culture are negative. IMPRESSION: Severe abdominal pain. I cannot really determine etiology could be constipation, impaction, could be from irritable bowel syndrome. PLAN: My plan for him to check his amylase, lipase, celiac screening, TSH, anemia workup. Give him magnesium citrate today and tomorrow and prep him for endoscopy. Leanna Canela MD RD/[facility] /[id number]
[2019-03-15] MEDS ORDERED: CITRATE OF MAGNESIA 300ML BOTTLE PO ONE (21:00)
[2019-03-15 21:02] LABS: RETICULOCYTE % 1.3 % (0.8-2.2)
[2019-03-15 21:42] LABS: FERRITIN 387.29 ng/mL (21.81-274.66); THYROID STIMULATING HORMONE 2.573 uIU/mL (0.350-4.940)
[2019-03-16] VITALS (8 sets, daily range): BP systolic 122–149; BP diastolic 64–94
[2019-03-16] MEDS: CIPROFLOXACIN 400 MG/D5W 200ML 200 ML IV SCH (01:02)
[2019-03-16] MEDS: SODIUM CHLORIDE 0.9% 1000ML 1,000 ML IV SCH ×3 (05:08→21:08)
[2019-03-16 05:28] LABS: BASOPHILS % 0.3 % (0.0-1.0); EOSINOPHILS # (AUTO) 0.1 (0.0-0.4); EOSINOPHILS % 1.6 % (0.0-6.0); HEMATOCRIT 29.2 % (38.2-49.6); HEMOGLOBIN 9.9 g/dL (14.0-18.0); LYMPHOCYTES # (AUTO) 1.8 (1.0-3.2); LYMPHOCYTES % 47.6 % (18.0-39.1); MEAN CORPUSCULAR HEMOGLOBIN 32.4 pg (28-32); MEAN CORPUSCULAR HGB CONC 33.9 g/dL (31-35); MEAN CORPUSCULAR VOLUME 95.4 fL (81-99); MONOCYTES # (AUTO) 0.3 (0.2-0.8); MONOCYTES % 8.4 % (4.4-11.3); NEUTROPHILS # (AUTO) 1.5 (2.1-6.9); NEUTROPHILS % 41.6 % (38.7-80.0); PLATELET COUNT 174 x10e3/uL (140-360); RED BLOOD COUNT 3.06 x10e6/uL (4.3-5.7); RED CELL DISTRIBUTION WIDTH 11.7 % (11.7-14.4)
--- NOTE | 2019-03-16 07:17 | NUR ---
pt alert resp even and unlabored at this time no distress noted pt able to make needs known, pt ambulating in room, family member at bedside call light in reach.
[2019-03-16 07:32] LABS: ANION GAP 12.3 mmol/L (8-16); BLOOD UREA NITROGEN < 5 mg/dL (7-26); CARBON DIOXIDE 22 mmol/L (22-29); CHLORIDE 107 mmol/L (98-107); EST GLOMERULAR FILTRATION RATE > 60 ML/MIN (60-); GLUCOSE 92 mg/dL (74-118); POTASSIUM 3.3 mmol/L (3.5-5.1); SODIUM 138 mmol/L (136-145)
[2019-03-16 08:19] LABS: BUN/CREATININE RATIO 4 (6-25)
[2019-03-16] MEDS ORDERED: HYDROCHLOROTHIAZIDE 25 MG TAB PO SCH (09:00)
[2019-03-16] MEDS: PANTOPRAZOLE SOD 40 MG TABEC PO SCH (09:15)
[2019-03-16] MEDS: HYDROCHLOROTHIAZIDE 25 MG TAB PO SCH (09:24)
[2019-03-16] MEDS: METRONIDAZOLE 500MG/NS 100ML 100 ML IV SCH (09:24)
[2019-03-16 10:32] LABS: LYMPHOCYTES % (MANUAL) 49 % (19-48); MONOCYTES % (MANUAL) 5 % (3.4-9.0); NEUTROPHILS % (MANUAL) 42 % (40-74)
[2019-03-16 10:54] LABS: PLATELET ESTIMATE ADEQUATE; PLATELET MORPHOLOGY COMMENT NORMAL; RBC MORPHOLOGY COMMENT NORMAL
[2019-03-16] MEDS: CIPROFLOXACIN 500 MG TAB PO SCH (14:00)
[2019-03-16] MEDS ORDERED: POTASSIUM CHLORIDE 20 MEQ TAB CR PO ONE (16:37)
[2019-03-16] MEDS ORDERED: PEG (High)/E-LYTE SOLN 4,000 ML BTL PO ONE ×2 (16:45→17:00)
--- NOTE | 2019-03-16 16:50 | NUR ---
consent signed for procedure.
[2019-03-16] MEDS ORDERED: CIPROFLOXACIN 500 MG TAB PO SCH (17:00)
--- NOTE | 2019-03-16 18:28 | Progress Note ---
DATE: 03/16/2019 SUBJECTIVE: He is doing much better than yesterday, less abdominal pain. He only had one bottle of magnesium citrate and he said he had 3 good bowel movements. Awake, alert, oriented. His temperature is 99, pulse 95, blood pressure 131/70. His white cell count 3.7, hemoglobin 9.9, hematocrit 29, platelets 174, sedimentation rate is 62. His BUN and creatinine are normal. Sodium and potassium are normal, except for potassium mildly depleted at 3.3, will be replaced. Iron saturation normal. TSH normal. B12 normal. Folate, RBC are pending and celiac screening is still pending. My plan for him is to clean him up and perform a colonoscopy. Leanna Canela MD RD/[facility] /[id number]
[2019-03-16] MEDS: MORPHINE SULFATE INJ 4 MG/ML INJ 1ML IV PRN (19:13)
[2019-03-16] MEDS: ONDANSETRON HCL INJ 2MG/ML 2ML 2 MG/ML VIAL IV PRN (19:13)
--- NOTE | 2019-03-16 19:25 | NUR ---
report given to oncoming nurse .pt stable.
[2019-03-16] MEDS: METRONIDAZOLE 500 MG TAB PO SCH (21:08)
[2019-03-17] VITALS (9 sets, daily range): BP systolic 113–139; BP diastolic 65–89
[2019-03-17] MEDS: CIPROFLOXACIN 500 MG TAB PO SCH ×2 (01:16→13:21)
[2019-03-17] MEDS: SODIUM CHLORIDE 0.9% 1000ML 1,000 ML IV SCH (06:31)
--- NOTE | 2019-03-17 07:06 | NUR ---
BEDSIDE REPORT COMPLETED WITH ELZA RN AT THIS TIME. PT IN BED IN NO APPARENT DISTRESS. PT HAS COMPLETED APPROXIMATELY HALF OF THE BOWEL PREP. PT STATES LAST BM WAS NOT CLEAR. PT ENCOURAGED TO DRINK PREP. WILL CONTINUE TO MONITOR PT. CALL LIGHT IS IN REACH OF PT.
[2019-03-17] MEDS: PANTOPRAZOLE SOD 40 MG TABEC PO SCH (08:02)
[2019-03-17] MEDS: HYDROCHLOROTHIAZIDE 25 MG TAB PO SCH (08:02)
[2019-03-17] MEDS: METRONIDAZOLE 500 MG TAB PO SCH (08:02)
[2019-03-17] MEDS ORDERED: ONDANSETRON HCL 4 MG ORAL DISINTEGRATING TAB PO PRN (12:30)
[2019-03-17] MEDS ORDERED: LIDOCAINE HCL 2% LOCAL INJ 5 ML SDV VIAL INJ ONE (19:24)
[2019-03-17] MEDS ORDERED: MIDAZOLAM HCL 2 MG/2 ML VIAL ONE (19:24)
[2019-03-17] MEDS ORDERED: GLYCOPYRROLATE INJ 1MG/ 5 ML SYR ONE (19:24)
[2019-03-17] MEDS ORDERED: PROPOFOL IV EMULSION 10 MG/ML 20 ML VIAL ONE (19:24)
[2019-03-17] MEDS ORDERED: FENTANYL CITRATE/PF 100MCG/2 ML INJ ONE (19:24)
--- NOTE | 2019-03-17 20:22 | NUR ---
Received phone call from antonio Chawla to discharge.
--- NOTE | 2019-03-17 20:30 | NUR ---
Patient discharge at this time with all belongings. Father here to take patient home via private auto. No complaints or concern at this time.
== END 2019-03-17 20:25 | disposition home or self-care (01) | DRG 977 ==
LOC: ER 10:22 → ERHOLD 14:36 → MED/SURG2 15:03 → OBSVTOIN 03-15 12:39
PROC: 0DJ08ZZ Inspection of Upper Intestinal Tract, Via Natural or Artificial Opening Endoscopic (ICD-10-PCS; principal; 2019-03-17 09:00)
PROC: 0DJD8ZZ Inspection of Lower Intestinal Tract, Via Natural or Artificial Opening Endoscopic (ICD-10-PCS; principal; 2019-03-17 09:00)
DX: K52.9 Noninfective gastroenteritis and colitis, unspecified (principal); B20 Human immunodeficiency virus [HIV] disease; N17.9 Acute kidney failure, unspecified; B37.81 Candidal esophagitis; K29.80 Duodenitis without bleeding; N20.0 Calculus of kidney; N41.9 Inflammatory disease of prostate, unspecified; D64.9 Anemia, unspecified; N50.0 Atrophy of testis; N28.1 Cyst of kidney, acquired; R31.29 Other microscopic hematuria; D72.819 Decreased white blood cell count, unspecified; R39.12 Poor urinary stream; Q54.0 Hypospadias, balanic; K44.9 Diaphragmatic hernia without obstruction or gangrene; K29.70 Gastritis, unspecified, without bleeding; E87.6 Hypokalemia; F17.200 Nicotine dependence, unspecified, uncomplicated; E87.8 Other disorders of electrolyte and fluid balance, not elsewhere classified; R82.998 Other abnormal findings in urine; E86.0 Dehydration
CPT/HCPCS: 36415; 43235; 45378; 74176; 80048; 80053; 82150; 82607; 82728; 82747; 82784; 83516; 83540; 83690; 84443; 84466; 85025; 85045; 85651; 86140; 86256; 87102; 87206; 88305; 88312; 99284; G0378; J2001; J2250; J2270; J2405; J3010; J7030

== ENCOUNTER 2019-03-26 17:20 | Emergency (ER) | payer OTHER ==
[~2019-03-26] VITALS: Ht 160 cm; Wt 95.3 kg
[~2019-03-26 17:20] MED LIST: HYDROCHLOROTHIA25 MG PO
[2019-03-26 17:33] VITALS: BP 125/71
[2019-03-26] MEDS ORDERED: TRIMETHOPRIM/SULFAMETHOXAZOLE 160-800 MG TAB PO ONE (18:00)
[2019-03-26] MEDS ORDERED: CLINDAMYCIN HCL 150 MG CAP PO ONE (18:00)
== END 2019-03-26 17:53 | disposition home or self-care (01) ==
LOC: ER 17:20
DX: L03.115 Cellulitis of right lower limb (principal); I10 Essential (primary) hypertension; K21.9 Gastro-esophageal reflux disease without esophagitis; B20 Human immunodeficiency virus [HIV] disease
CPT/HCPCS: 99283

== ENCOUNTER 2019-04-04 08:55 | Emergency (ER) | payer OTHER ==
[~2019-04-04] VITALS: Ht 160 cm; Wt 95.3 kg
[2019-04-04] MEDS ORDERED: PANTOPRAZOLE 40 MG 10ML VIAL IV STA (09:11)
[2019-04-04] MEDS ORDERED: SODIUM CHLORIDE 0.9% 1000ML 1,000 ML IV STA ×2 (09:11→12:08)
[2019-04-04] MEDS ORDERED: ONDANSETRON HCL INJ 2MG/ML 2ML 2 MG/ML VIAL IV STA (09:11)
[2019-04-04] MEDS ORDERED: DICYCLOMINE HCL 20 MG/2 ML VIAL IM ONE (09:15)
[2019-04-04] MEDS ORDERED: TYLENOL # 31 EA PO (09:44)
[2019-04-04] MEDS ORDERED: BENTYL10 MG/1 ML IV (09:44)
[2019-04-04] MEDS ORDERED: FLAGYL500 MG PO (09:44)
[2019-04-04] MEDS ORDERED: CLINDAMYCIN HC300 MG PO (09:44)
[2019-04-04 10:09] LABS: BASOPHILS % 0.5 % (0.0-1.0); EOSINOPHILS # (AUTO) 0.1 (0.0-0.4); EOSINOPHILS % 0.6 % (0.0-6.0); HEMATOCRIT 36.2 % (38.2-49.6); HEMOGLOBIN 12.3 g/dL (14.0-18.0); LYMPHOCYTES # (AUTO) 2.7 (1.0-3.2); LYMPHOCYTES % 33.6 % (18.0-39.1); MEAN CORPUSCULAR HEMOGLOBIN 32.5 pg (28-32); MEAN CORPUSCULAR VOLUME 95.5 fL (81-99); MONOCYTES # (AUTO) 0.6 (0.2-0.8); MONOCYTES % 7.1 % (4.4-11.3); NEUTROPHILS # (AUTO) 4.6 (2.1-6.9); NEUTROPHILS % 57.8 % (38.7-80.0); PLATELET COUNT 260 x10e3/uL (140-360); RED BLOOD COUNT 3.79 x10e6/uL (4.3-5.7); RED CELL DISTRIBUTION WIDTH 12.6 % (11.7-14.4)
--- NOTE | 2019-04-04 10:25 | NUR ---
LAB CALLED FOR REDRAW OF LACTIC AND GREEN TOP.
--- NOTE | 2019-04-04 10:31 | Diagnostic Imaging Report ---
EXAM: CHEST SINGLE (PORTABLE) DATE: 04/04/2019 9:11 AM INDICATION: Shortness breath, abdominal pain COMPARISON: None FINDINGS: The trachea is midline. The lungs are symmetrically expanded without evidence for large focal consolidation, pneumothorax, or significant pleural effusion. The cardiomediastinal silhouette and pulmonary vasculature are within normal limits. No acute osseous abnormality is identified. The surrounding soft tissues are unremarkable. IMPRESSION: No acute cardiopulmonary process identified. Signed by: Dr. Evelio Marin MD on 04/04/2019 10:28 AM
[2019-04-04 10:32] LABS: INR 0.95; PROTHROMBIN TIME 13.2 seconds (11.9-14.5)
[2019-04-04 10:33] LABS: PARTIAL THROMBOPLASTIN TIME 29.7 seconds (23.8-35.5)
--- NOTE | 2019-04-04 10:44 | NUR ---
ENCOURAGED PT TO DRINK WATER FOR UA SAMPLE. RESTING COMFORTABLY IN BED. NO COMPLAINTS OF PAIN OR ACUTE DISTRESS.
[2019-04-04 11:13] LABS: ALANINE AMINOTRANSFERASE 19 IU/L (0-55); ALBUMIN 4.2 g/dL (3.5-5.0); ALBUMIN/GLOBULIN RATIO 1.1 (0.8-2.0); ALKALINE PHOSPHATASE 76 IU/L (40-150); AMYLASE 90 U/L (25-125); ANION GAP 15.7 mmol/L (8-16); BLOOD UREA NITROGEN 10 mg/dL (7-26); BUN/CREATININE RATIO 7 (6-25); CALCIUM 9.8 mg/dL (8.4-10.2); CARBON DIOXIDE 20 mmol/L (22-29); CHLORIDE 105 mmol/L (98-107); CREATINE KINASE 77 IU/L (30-200); CREATININE, SERUM 1.35 mg/dL (0.72-1.25); EST GLOMERULAR FILTRATION RATE > 60 ML/MIN (60-); GLUCOSE 106 mg/dL (74-118); LIPASE 16 U/L (8-78); MAGNESIUM 1.8 MG/DL (1.3-2.1); POTASSIUM 3.7 mmol/L (3.5-5.1); SODIUM 137 mmol/L (136-145)
[2019-04-04 11:33] LABS: CLARITY,URINE CLEAR (CLEAR); COLOR,URINE YELLOW (YELLOW)
[2019-04-04 11:34] LABS: LEUKOCYTE ESTERASE ,URINE NEGATIVE (NEGATIVE); NITRITE,URINE NEGATIVE (NEGATIVE)
[2019-04-04 11:35] LABS: PROTEIN,URINE DIPSTICK TRACE (NEGATIVE)
[2019-04-04 11:36] LABS: KETONES,URINE NEGATIVE (NEGATIVE)
[2019-04-04 11:37] LABS: BILIRUBIN,URINE NEGATIVE (NEGATIVE); URINE UROBILINOGEN 0.2 mg/dL (0.2 - 1)
[2019-04-04 11:38] LABS: BACTERIA,URINE RARE /HPF; EPITHELIAL CELLS,URINE FEW /LPF; RBC,URINE 0-5 /HPF (0-5); WBC,URINE (MAN) 0-5 /HPF (0-5)
[2019-04-04] MEDS ORDERED: PROMETHAZINE 12.5MG/ NACL 0.9% 12.5 MG/50 ML BAG IV ONE (12:15)
--- NOTE | 2019-04-04 12:35 | Diagnostic Imaging Report ---
CT of the abdomen and pelvis, with contrast. History: Abdominal pain. Comparison: CT abdomen/pelvis without contrast from 03/14/2019 CT abdomen/pelvis with contrast from 03/13/2019. Technique: Multidetector CT scanning of the abdomen and pelvis was performed from the level of the lung bases to the inferior pubic rami after intravenous and oral administration of contrast. Coronal and sagittal multiplanar reformations were obtained. RADIATION DOSE: Total DLP: 303.84 mGy*cm Dose modulation, iterative reconstruction, and/or weight based adjustment of the mA/kV was utilized to reduce the radiation dose to as low as reasonably achievable. FINDINGS: The visualized lungs are unremarkable. The imaged portion of the heart demonstrates no significant abnormalities. The liver is normal in size and attenuation without evidence for focal abnormality. The gallbladder is unremarkable. There is no biliary ductal dilatation. The stomach, spleen, pancreas, and bilateral adrenal glands are unremarkable. The kidneys are normal in size and location and enhance symmetrically. There are stable appearing bilateral renal cysts. The largest measures 1.4 cm and is located within the left kidney. There is a stable 6 mm nonobstructing stone identified within the inferior pole the left kidney. There is no evidence for hydronephrosis. The ureters are normal in course and caliber. The urinary bladder and prostate demonstrates no significant abnormalities. The abdominal aorta is normal course and caliber. The IVC is unremarkable. Please note evaluation of the bowel is limited without the use of enteric contrast material. The visualized loops of small and large bowel demonstrate no evidence of obstruction or inflammation. There is no ascites or intraperitoneal free air. No abnormally enlarged lymph nodes are identified within the abdomen or pelvis. The osseous structures demonstrate no evidence for acute fracture or destructive process. The extra peritoneal soft tissues are unremarkable. IMPRESSION: Stable nonobstructing left lower pole renal calculus. No other acute abdominopelvic process or significant interval change identified from the prior examination from 03/14/2019. Signed by: Dr. Evelio Marin MD on 04/04/2019 12:32 PM
[2019-04-04 13:41] LABS: PHENCYCLIDINE SCREEN,URINE NEGATIVE (NEGATIVE)
[2019-04-04 13:42] LABS: AMPHETAMINES SCREEN,URINE NEGATIVE (NEGATIVE); BENZODIAZEPINES SCREEN,URINE NEGATIVE (NEGATIVE)
[2019-04-04 13:48] VITALS: BP 123/66
== END 2019-04-04 14:33 | disposition home or self-care (01) ==
LOC: ER 08:55
DX: R10.84 Generalized abdominal pain (principal); R11.2 Nausea with vomiting, unspecified; I10 Essential (primary) hypertension; J45.909 Unspecified asthma, uncomplicated
CPT/HCPCS: 36415; 71045; 74177; 80053; 80307; 81001; 82150; 82550; 82553; 83605; 83690; 83735; 84484; 85025; 85610; 85730; 87040; 87086; 99283; C9113; J0500; J2405; J2550; J7030

== ENCOUNTER 2019-12-14 07:50 | Emergency (ER) | payer OTHER ==
[~2019-12-14] VITALS: Ht 160 cm; Wt 95.3 kg
[~2019-12-14 07:50] MED LIST changes: +BENTYL10 MG/1 ML IV; +CLINDAMYCIN HC300 MG PO; +FLAGYL500 MG PO; +TYLENOL # 31 EA PO
[2019-12-14] MEDS ORDERED: ONDANSETRON HCL INJ 2MG/ML 2ML 2 MG/ML VIAL IV NR (08:00)
[2019-12-14] MEDS ORDERED: DICYCLOMINE HCL 20 MG/2 ML VIAL IM NR (08:00)
[2019-12-14] MEDS ORDERED: MORPHINE SULFATE 2 MG/ML SYR 1ML IV NR (08:00)
[2019-12-14] MEDS ORDERED: KETOROLAC TROMETHAMINE 30 MG/ML VIAL IV NR (08:00)
[2019-12-14] MEDS ORDERED: PANTOPRAZOLE 40 MG 10ML VIAL IV NR (08:00)
--- NOTE | 2019-12-14 08:05 | Emergency Department Note ---
History of Present Illnes History of Present Illness Chief Complaint: Abdominal Complaints History of Present Illness This is a 39 year old male arrives to the ED for abdominal pain that began a few days ago after having some she does. Patient describes the pain as primarily periumbilical associated with nausea and vomiting. . Historian: Patient Arrival Mode: Car Onset (how long ago): day(s) Radiation: Reports non-radiation Severity: mild Duration (how long): day(s) Timing of current episode: constant Progression: worsening Chronicity: recurrent Relieving factors: none Exacerbating factors: none Past Medical/Family History Physician Review I have reviewed the patient's past medical and family history. Any updates have been documented here. 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 Social History Smoking Cessation: Current some day smoker Counseling Performed: Yes Alcohol Use: Occasional Other Last Tetanus: UTD Review of Systems Review of Systems Constitutional: Reports no symptoms EENTM: Reports no symptoms Cardiovascular: Reports no symptoms Respiratory: Reports no symptoms Gastrointestinal: Reports as per HPI, Reports abdominal pain Genitourinary: Reports no symptoms Musculoskeletal: Reports no symptoms Integumentary: Reports no symptoms Neurological: Reports no symptoms Psychological: Reports no symptoms Endocrine: Reports no symptoms Hematological/Lymphatic: Reports no symptoms Physical Exam Related Data Allergies: Coded Allergies: No Known Drug Allergies (Verified Allergy, Unknown, 03/16/19) Vital signs reviewed: Yes Physical Exam CONSTITUTIONAL Constitutional: Present well-developed, Present well-nourished HENT HENT: Present normocephalic, Present atraumatic, Present oropharynx clear/moist, Present nose normal HENT L/R: Present left ext ear normal, Present right ext ear normal EYES Eyes: Reports PERRL, Reports conjunctivae normal NECK Neck: Present ROM normal PULMONARY Pulmonary: Present effort normal, Present breath sounds normal CARDIOVASCULAR Cardiovascular: Present regular rhythm, Present heart sounds normal, Present capillary refill normal, Present normal rate GASTROINTESTINAL Abdominal: Present soft, Present nontender, Present bowel sounds normal, Present tender GENITOURINARY Genitourinary: Present exam deferred SKIN Skin: Present warm, Present dry MUSCULOSKELETAL Musculoskeletal: Present ROM normal NEUROLOGICAL Neurological: Present alert, Present oriented x 3, Present no gross motor or sensory deficits PSYCHOLOGICAL Psychological: Present mood/affect normal, Present judgement normal Results Laboratory Lab results reviewed: Yes Assessment & Plan Medical Decision Making MDM This patient presents with abdominal pain of unclear etiology. A CT scan was performed to evaluate for potential causes of the abdominal pain, however, neither the clinical exam nor the CT has identified an emergent etiology for the abdominal pain. Specifically, given the benign exam, the laboratory studies, and unremarkable CT, I have a very low suspicion for appendicitis, ischemic bowel, bowel perforation, or any other life threatening disease. I have discussed with the patient the level of uncertainty with undifferentiated abdominal pain and clearly explained the need to follow-up as noted on the discharge instructions, or return to the Emergency Department immediately if the pain worsens, develops fever, persistent and uncontrollable vomiting, or for any new symptoms or concerns. Assessment & Plan Final Impression: (1) IBS (irritable bowel syndrome) (2) Cocaine abuse (3) Cannabinoid hyperemesis syndrome Depart Disposition: HOME, SELF-penitentiary Meds Active Scripts Pantoprazole Sodium* (PROTONIX) 40 Mg Tablet.dr, 40 MG PO DAILY, #14 TAB Prov:GEOVANI MONROY, DO 12/14/19 Dicyclomine Hcl (BENTYL) 10 Mg/1 Ml Ampul, 20 MG PO QID, #20 VIAL Prov:GEOVANI MONROY, DO 12/14/19 Ondansetron Hcl* (ZOFRAN*) 4 Mg Tablet, 4 MG SL Q6H PRN for NAUSEA, #14 MG 0 R efills Prov:GEOVANI MONROY, DO 12/14/19 Reported Medications Dicyclomine Hcl (BENTYL) 10 Mg/1 Ml Ampul, 20 MG IV QID, VIAL 04/04/19 Metronidazole (FLAGYL) 500 Mg Tablet, 500 MG PO Q6H 04/04/19 Acetaminophen/Codeine* (TYLENOL # 3*) 1 Ea Tab, PO PRN PRN for ABDOMINAL PAIN 04/04/19 Clindamycin Hcl (CLINDAMYCIN HCL) 300 Mg Capsule, 300 MG PO Q6H 04/04/19 Hydrochlorothiazide (HYDROCHLOROTHIAZIDE) 25 Mg Tablet, 12.5 MG PO DAILY, #30 TAB 03/14/19 Medications in the ED Pantoprazole Sodium 40 mg NOW STAT IV ; Start 12/14/19 at 07:55; Stop 12/14/19 at 07:56; Status UNV Ondansetron HCl 4 mg NOW STAT IV ; Start 12/14/19 at 07:55; Stop 12/14/19 at 07:56; Status UNV Dicyclomine HCl 20 mg ONCE ONCE IM ; Start 12/14/19 at 08:00; Stop 12/14/19 at 08:01; Status UNV Morphine Sulfate 6 mg NOW STAT IV ; Start 12/14/19 at 07:55; Stop 12/14/19 at 07:56; Status UNV Ketorolac Tromethamine 30 mg ONCE STAT IV ; Start 12/14/19 at 07:55; Stop 12/14/19 at 07:56; Status UNV Sodium Chloride 1,000 ml @ 100 mls/hr Q10H IV ; Start 12/14/19 at 08:00; Stop 01/13/20 at 07:59 GEOVANI MONROY DO Dec 14, 2019 08:05
[2019-12-14] MEDS: SODIUM CHLORIDE 0.9% 1000ML 1,000 ML IV SCH ×2 (08:06→08:25)
[2019-12-14 08:15] LABS: BASOPHILS # (AUTO) 0.1 (0.0-0.1); BASOPHILS % 0.6 % (0.0-1.0); EOSINOPHILS % 0.5 % (0.0-6.0); HEMATOCRIT 40.9 % (38.2-49.6); HEMOGLOBIN 13.6 g/dL (14.0-18.0); LYMPHOCYTES # (AUTO) 2.6 (1.0-3.2); MEAN CORPUSCULAR HEMOGLOBIN 32.7 pg (28-32); MEAN CORPUSCULAR HGB CONC 33.3 g/dL (31-35); MEAN CORPUSCULAR VOLUME 98.3 fL (81-99); MONOCYTES # (AUTO) 0.6 (0.2-0.8); MONOCYTES % 6.8 % (4.4-11.3); NEUTROPHILS # (AUTO) 5.4 (2.1-6.9); NEUTROPHILS % 61.8 % (38.7-80.0); PLATELET COUNT 206 x10e3/uL (140-360); RED BLOOD COUNT 4.16 x10e6/uL (4.3-5.7)
[2019-12-14 08:36] LABS: ALANINE AMINOTRANSFERASE 15 IU/L (0-55); ALBUMIN 4.9 g/dL (3.5-5.0); ALBUMIN/GLOBULIN RATIO 1.2 (0.8-2.0); ALKALINE PHOSPHATASE 94 IU/L (40-150); BLOOD UREA NITROGEN 15 mg/dL (7-26); BUN/CREATININE RATIO 10 (6-25); CALCIUM 10.7 mg/dL (8.4-10.2); CARBON DIOXIDE 17 mmol/L (22-29); CHLORIDE 112 mmol/L (98-107); CREATINE KINASE 57 IU/L (30-200); CREATININE, SERUM 1.44 mg/dL (0.72-1.25); EST GLOMERULAR FILTRATION RATE > 60 ML/MIN (60-); GLUCOSE 101 mg/dL (74-118); SODIUM 145 mmol/L (136-145)
--- OUTSIDE RECORDS SUMMARY | 2019-12-14 08:37 | XMS REPORT | Clinical Summary ---
Author Author [facility] Organization [facility] Address Unknown Phone Unavailable Care Team Providers Care Clinical Care Manager Name Role Phone PCP Unavailable Allergies Comments Active Allergy Reactions Severity Noted Date Aspirin 01/06/2018 Medications End Date Status Medication Sig Dispensed Refills Start Date Active darunavir (PREZISTA) 800 Take 1 tablet 30 tablet 12 mg Tab tabletIndications: by mouth 7 AIDS daily. Active RITONavir (NORVIR) 100 mg Take 1 tablet 30 tablet 12 TabIndications: AIDS by mouth 7 daily. Active emtricitabine-tenofovir Take 1 tablet 30 tablet 12 alafen (DESCOVY) 200-25 by mouth 7 mg tabletIndications: daily. AIDS Active sulfamethoxazole-trimetho Take 1 tablet 100 tablet 12 prim (BACTRIM DS) 800-160 by mouth 3 7 mg per tabletIndications: times weekly. AIDS Active BOOST VHC 0.09-2.25 Take 1 90 Can 6 gram-kcal/mL oral Package by 7 liquidIndications: AIDS mouth 3 times daily. Active ibuprofen (MOTRIN) 400 mg Take 1 tablet 30 tablet 0 tabletIndications: RUQ by mouth 8 abdominal pain, Abdominal every 8 hours pain, unspecified as needed for abdominal location Pain. Active Problems Problem Noted Date LBP (low back pain) 05/11/2014 Homeless 01/12/2012 Polysubstance (excluding opioids) dependence 012 AIDS 09/03/2011 Major depression, recurrent 12/15/2010 Abdominal pain Immunizations Name Administration Dates Next Due Hepatitis B Vaccine 01/14/2012, 12/17/2011 Influenza <Unspecified> 03/09/2017 Influenza Vaccine 01/30/2014, 02/09/2012 PPD 09/22/2016, 01/02/2014, , 10/24/2010 PPV 23 Pneumococcal 12/17/2011 Polysaccaride Pneumococcal 13-valent 04/30/2014 conj 0.5 mL injection Tdap Tetanus, diphtheria, 10/31/2009 acellular pertussis Vaccine Family History Medical History Relation Name Comments Diabetes Brother Lipids Father Unknown Fam Hx Father Alcohol/Drug Mother Diabetes Mother Hypertension Mother Seizures Sister seizures Relation Name Status Comments Brother Alive Daughter Alive Father Alive Mother Brain aneurysm (Age 56 yrs) Sister Alive Son Alive Social History Date Tobacco Use Types Packs/Day Years Used Current Every Day Smoker Cigarettes 0.5 10 Smokeless Tobacco: Never Used Tobacco Cessation: Ready to Quit: No; Co unseling Given: Yes Drinks/Week oz/Week Comments Alcohol Use No Food Insecurity Answer Date Recorded Within the past 12 months, you worried that your Never hannah e 09/22/2016 food would run out before you got money to buy more. Within the past 12 months, the food you bought Never true 09/22/2016 just didn't last and you didn't have mo lacey to get more. Sex Assigned at Date Recorded Not on file Industry Job Start Date Occupation Not on file Not on file Not on file Travel End Travel History Travel Start No recent travel history available. Last Filed Vital Signs Not on file Plan of Treatment Health Maintenance Due Date Last Done Comments IMM Influenza Seasonal 02/01/2020 03/09/2017, Jan to July (>/= 19 yrs) 01/30/2014, 02/09/2012 Goals Goal Patient Associated Recent Progress Patient-Stat Aut hor Goal Type Problems ed? Have 3 meals a day Diet Tracy Ritchie LD Make behavioral therapy appt Self No E [facility] management is, Kyra Wei RN Results Not on fileafter 12/13/2018 Insurance Type Payer Benefit Subscriber ID Effective Phone Address Plan / Dates Group [place] [employer] [id number] SSI xxxxxxxxx 2017-P [id number] [place] [address] [facility] SELF-PAY SELF-PAY xxxxxxxxx 2018-P [phone] [id number] [place] [address] Vimal Kim Personal/F Self [address] amily (Home) [place] [address] Advance Directives Date Inactivated Comments Code Status Date Activated 11/12/2011 4:39 PM Full Code 11/11/2011 4:04 AM
--- OUTSIDE RECORDS SUMMARY | 2019-12-14 08:38 | XMS REPORT | Continuity of Care Document ---
Author Author [facility] t Organization [facility] Address [address] [place] [address] Phone Unavailable Care Team Providers Care Agency Cashier Name Role Phone NONSTAFF PCP Unavailable Sergio MONTGOMERY Attphys Unavailable WESLY SPICER Attphys Unavailable PAULINE DAMON Attphys Unavailable Payers Payer Name Policy Type Policy Number Effective Date Expiration Date [employer] Medicaid [id number] 2017 00:00:00 [facility] Problems Condition Name Condition Details Condition Category Status Onset Date Resolution Date Last Treatment Date Treating Clinician Comments Source LBP (low back pain) LBP (low back pain) Disease Active 2014-05-11 00:00 :00 [facility] Homeless Homeless Disease Active 2012-01-12 00:00:00 [facility] Polysubstance (excluding opioids) dependence Polysubst ance (excluding opioids) dependence Disease Active 2011-12-15 00:00:00 [facility] AIDS AIDS Disease Active 2011-09-03 00:00:00 [facility] Major depression, recurrent Major depression, recurrent Disease Active 2010-12-15 00:00:00 [facility] ealth Abdominal pain Abdominal pain Disease Active [facility] Allergies, Adverse Reactions, Alerts Allergy Name Allergy Type Status Severity Reaction(s) Onset Date Inacti ve Date Treating Clinician Comments Source No Known Allergies DA Active U 2019-02-28 00:00:00 [facility] Aspirin Propensity to adverse reactions to drug Active 2018-01-06 00:00:00 [facility] ASPIRIN DA Active U 2005-10-16 00:00:00 [facility] No Known Contrast Allergies DA Active U 2005-10-16 00:00: 00 [facility] No Known Food Allergies DA Active U 2005-10-16 00:00:00 [facility] No Known Other Allergies DA Active U 2005-10-16 00:00:00 [facility] Family History Family Member Diagnosis Comments Start Date Stop Date Source Natural brother Diabetes [facility] alth Natural father Lipids [facility] Natural father Unknown Fam Hx [facility] Natural mother Alcohol/Drug [facility] Natural mother Diabetes [facility] Natural mother Hypertension [facility] Natural sister Seizures [facility] Social History Social Habit Start Date Stop Date Quantity Comments Source History of tobacco use Cigarette Smoker [facility] Sex Assigned At [facility] Cigarettes smoked current (pack per day) - Reported 00:00:00 2018-10-05 00:00:00 [facility] Cigarette pack-years 2018-10-05 00:00:00 2018-10-05 00:00:00 [facility] Alcohol intake 2018-10-05 00:00:00 2018-10-05 00:00:00 Current non-drinker of alcohol (finding) [facility] History SDOH Food Worry 2016-09-22 00:00:00 2016-09-22 00:00:[address] [facility] Food Scarcity 2016-09-22 00:00:00 2016-09-22 00:00:00 1 [facility] Smoking Status Start Date Stop Date Source Current every day smoker 2018-10-05 00:00:00 [facility] Medications Ordered Medication Name Filled Medication Name Start Date Stop Da te Current Medication? Ordering Clinician Indication Dosage Frequency Signature (SIG) Comments Components Source ibuprofen (MOTRIN) 400 mg tablet 2018-01-06 00:00:00 Yes Abdominal pain, unspecified abdominal location 400mg Take 1 ta blet by mouth every 8 hours as needed for Pain. [facility] sulfamethoxazole-trimethoprim (BACTRIM DS) 800-160 mg per ta blet 2017-02-19 00:00:00 Yes AIDS 1{tbl} Take 1 tablet by mouth 3 time s weekly. [facility] darunavir (PREZISTA) 800 mg Tab tablet 2017-02-18 00:00:00 Yes AIDS 800mg QD Take 1 tablet by mouth daily. [facility] RITONavir (NORVIR) 100 mg Tab 2017-02-18 00:00:00 Yes AIDS 100mg QD Take 1 tablet by mouth daily. [facility] emtricitabine-tenofovir alafen (DESCOVY) 200-25 mg tablet 2017-02-18 00:00:00 Yes AIDS 1{tbl} QD Take 1 tablet by mouth daily. [facility] BOOST VHC 0.09-2.25 gram-kcal/mL oral liquid 2017-02-18 00:00:00 Yes AIDS 1{package} Take 1 Package by mouth 3 times daily. [facility] Acetaminophen/Codeine Phosphate (Tylenol # 3*) 1 Ea Ta b Acetaminophen/Codeine Phosphate (Tylenol # 3*) 1 Ea Tab Yes As Needed as needed for Abdominal Pain [facility] Clindamycin Hcl 300 Mg Capsule Clindamycin Hcl 300 Mg Capsule Yes 300 Every 6 Hours [facility] Dicyclomine Hcl (Bentyl) 10 Mg/1 Ml Ampul Dicyclomine Hcl (Bentyl) 10 Mg/1 Ml Ampul Yes 20 Four Times Daily [facility] Hydrochlorothiazide 25 Mg Tablet Hydrochlorothiazide 25 Mg Tablet Yes 12.5 Daily [facility] Metronidazole (Flagyl) 500 Mg Tablet Metronidazole (Flagyl) 500 Mg Tablet Yes 500 Every 6 Hours [facility] Immunizations Ordered Immunization Name Filled Immunization Name Date Status Comments Source Influenza <Unspecified> 2017-03-09 00:00:00 Completed [facility] PPD 2016-09-22 00:00:00 Completed [facility] Pneumococcal 13-valent conj 0.5 mL injection 2014-04-30 00 :00:00 Completed [facility] Influenza Vaccine 2014-01-30 00:00:00 Completed [facility] PPD 2014-01-02 00:00:00 Completed [facility] Influenza Vaccine 2012-02-09 00:00:00 Completed [facility] Hepatitis B Vaccine 2012-01-14 00:00:00 Completed [facility] PPV 23 Pneumococcal Polysaccaride 2011-12-17 00:00:00 Comp leted [facility] Hepatitis B Vaccine 2011-12-17 00:00:00 Completed [facility] PPD 2011-12-14 00:00:00 Completed [facility] PPD 2010-10-24 00:00:00 Completed [facility] Tdap Tetanus, diphtheria, acellular pertussis Vaccine 2009-10-31 00:00:00 Completed [facility] Procedures Procedure Date / Time Performed Performing Clinician Sour e Computed tomography of abdomen and pelvis with contrast 2018 00:00:00 ULISESBRANDO Sergio [facility] INSPECTION OF LOWER INTESTINAL TRACT, ENDO 2019-03-17 00:00:00 NIMISHA ESTRELLA [facility] INSPECTION OF UPPER INTESTINAL TRACT, ENDO 2019-03-17 00:00:00 D NIMISHA BURCH [facility] CT of abdomen and pelvis without contrast 2019-03-14 00:00:00 WESLY MUÑIZ [facility] Computed tomography of abdomen and pelvis with contrast 2018 00:00:00 PAULINE DAMON [facility] Plan of Care Planned Activity Planned Date Details Comments Source Future Scheduled Test 2020-02-01 00:00:00 IMM Influenza Seas onal Jan to July (>/= 19 yrs) [code = IMM Influenza Seasonal Jan to July (>/= 19 yrs)] [facility] Encounters Start Date/Time End Date/Time Encounter Type Admission Type Attendi [facility] Care Department Encounter ID Source 2019-04-04 08:55:00 2019-04-04 14:33:00 Departed Emergency Room [address] [facility] [id number] [facility] 2019-03-26 17:20:00 2019-03-26 17:53:[address] [facility] [id number] [facility] 2019-03-15 12:39:00 2019-03-17 20:25:00 Discharged Inpatient [address] [facility] [id number] [facility] 2019-03-13 12:16:00 2019-03-13 17:09:00 Departed Emergency Room [address] [facility] [id number] [facility] 2018-01-06 20:36:16 2018-01-06 20:36:[address] [facility] MED [id number] [facility] 2016-09-16 15:48:00 2016-09-16 15:48:00 Emergency E [facility] [id number] [facility] Results Test Description Test Time Test Comments Results Result Comments Source Urine Opiates Screen 2019-04-04 13:43:00 Test Item Urine Opiates Screen (test code = 80076-0) NEGATIVE NEGATIVE ALL TESTS PERFORMED MANUALLY ON BIORAD TOX/SEE TEST --- 04/04/19 1340 ---OPIATE S previously reported as: N ALL TESTS PERFORMED MANUALLY ON BIORAD TOX/SEE TEST [facility] Bar[facility]urates [id number] 13:43:00* Test Item Value Reference Range Interpretation Comments Urine Barbiturates Screen (test code = 925208810) NEGATIVE NEGA TIVE --- 04/04/19 1341 ---BARBITURATES previously reported as: N [facility] Phencyclidine Kzgijn3817-28-09 13:43:00* Test Item Value Reference Range Interpretation Comments Urine Phencyclidine Screen (test code = 36510-6) NEGATIVE NEGAT ANGY --- 04/04/19 1341 ---PCP previously reported as: N [facility] Amphetamines [id number] 13:43:00* Test Item Value Reference Range Interpretation Comments Urine Amphetamines Screen (test code = 14928-4) NEGATIVE NEGATI VE --- 04/04/19 1342 ---AMPHETAMINES previously reported as: N [facility] Methamphetamines [id number] 13:43:00* Test Item Value Reference Range Interpretation Comments Urine Methamphetamines Screen (test code = Urine Metha mphetamines Screen) NEGATIVE NEGATIVE --- 04/04/19 1342 ---MAMP previously reported as: N [facility] Benzodiazepines Kkzlvk3515-84-83 13:43:00* Test Item Value Reference Range Interpretation Comments Urine Benzodiazepines Screen (test code = 60127-5) NEGATIVE NEG ATIVE --- 04/04/19 1342 ---BENZODIAZEPINES previously reported as: N [facility] Cocaine [id number] 13:43:00* Test Item Value Reference Range Interpretation Comments Urine Cocaine Screen (test code = 3398-5) NEGATIVE NEGATIVE --- 04/04/191341 ---COCAINE previously reported as: N [facility] Cannabinoids Denxic3586-44-69 13:43:00* Test Item Value Reference Range Interpretation Comments Urine Cannabinoids Screen (test code = 90270-7) POSITIVE NEGATI VE H This test provides only a screen. Positive results should be repeated by a confi rmatory test. --- 04/04/191341 ---THC previously reported as: P THESE RESU LTS ARE FOR MEDICAL TREATMENT ONLYTHIS REPORT CONTAINS UNCONFIRMED SCREENING RESULTS*POSITIVE RESULTS WILL BE CONFIRMED BY REFERENCE LAB UPON REQUEST CUT-OFFDRUG CLASS CONCENTRATION ng/mLAmphetamines 1000Methamphetamines 1000Co virgil 300Opiate 300Phencyclidine 25Cannabinoid 50Barbiturates 300Benzodi azepine 300Methadone 300[facility] Methadone Mmqpvi6935-67-35 13:43:00* Test Item Value Reference Range Interpretation Comments Urine Methadone Screen (test code = 87249-8) POSITIVE NEGATIVE H This test provides only a screen. Positive results should be repeated by a confi rmatory test. --- 04/04/191342 ---METHADONE previously reported as: P THE SE RESULTS ARE FOR MEDICAL TREATMENT ONLYTHIS REPORT CONTAINS UNCONFIRMED SC REENING RESULTS*POSITIVE RESULTS WILL BE CONFIRMED BY REFERENCE LAB UPON REQUEST CUT-OFFDRUG CLASS CONCENTRATION ng/mLAmphetamines 1000Methamphetamines 1000Cocaine Metabolite 300Opiate 300Phencyclidine 25Cannabinoid 50Barbiturates 300 Benzodiazepine 300Methadone 300[facility] [id number] 12:24:00 [facility] [address] [place] [address] Patient Name: QUYEN KIM MR #: [id number] : 1980 Age/Sex: 38/M Req #: [id number] Adm Physician: Ordered by: BRANDO MONTGOMERY MD Report #: [id number] Location: ER Room/Bed: Procedure: [id number] CT/CT ABDOMEN/PELVIS W Exam Date: 04/04/19 Exam Time: 1130 REPORT STATUS: Signed CT of the abdomen and pelvis, with contrast. History: Abdominal pain. Comp arison: CT abdomen/pelvis without contrast from 03/14/2019 CT abdomen/pelvis w ith contrast from 03/13/2019. Technique: Multidetector CT scanning of the a bdomen and pelvis was performed from the level of the lung bases to the inferi or pubic rami after intravenous and oral administration of contrast. Coronal and sagittal multiplanar reformations were obtained. RADIATION DOSE: Total DLP: 303.84 mGy*cm Dose modulation, iterative reconstruction, and/or weight based adjustment of the mA/kV was utilized to reduce the radiat ion dose to as low as reasonably achievable. FINDINGS: The visualized lungs are unremarkable. The imaged portion of the heart demonstrates no signif icant abnormalities. The liver is normal in size and attenuation without ev idence for focal abnormality. The gallbladder is unremarkable. There is no yue iary ductal dilatation. The stomach, spleen, pancreas, and bilateral adrenal g lands are unremarkable. The kidneys are normal in size and location and e nhance symmetrically. There are stable appearing bilateral renal cysts. The la rgest measures 1.4 cm and is located within the left kidney. There is a stable 6 mm nonobstructing stone identified within the inferior pole the left kidney. There is no evidence for hydronephrosis. The ureters are normal in course and caliber. The urinary bladder and prostate demonstrates no significant abnorm alities. The abdominal aorta is normal course and caliber. The IVC is unrem arkable. Please note evaluation of the bowel is limited without the use of enteric contrast material. The visualized loops of small and large bowel demon strate no evidence of obstruction or inflammation. There is no ascites or intr aperitoneal free air. No abnormally enlarged lymph nodes are identified within the abdomen or pelvis. The osseous structures demonstrate no evidence for acute fracture or destructive process. The extra peritoneal soft tissues are unremarkable. IMPRESSION: Stable nonobstructing left lower pole re nal calculus. No other acute abdominopelvic process or significant interval change identified from the prior examination from 03/14/2019. Signed by: Dr. Evelio Marin MD on 04/04/2019 12:32 PM Dictated By: EVELIO MARIN MD 1232 Transcribed By: COM SPICER on 04/04/19 1232 COPY TO: BRANDO MONTGOMERY MD Urine Color 2019-04-04 11:38:00* Test Item Value Reference Range Interpretation Comments Urine Color (test code = 5778-6) YELLOW YELLOW [facility] [id number] 11:38:00* Test Item Value Reference Range Interpretation Comments Urine Clarity (test code = 95362-7) CLEAR CLEAR [facility] Specific Fqrgwwm0430-75-38 11:38:00 * Test Item Value Reference Range Interpretation Comments Urine Specific [place] (test code = 5811-5) 1.010 1.010-1.02 5 [facility] [id number] 11:38:00* Test Item Value Reference Range Interpretation Comments Urine pH (test code = 90826-1) 6.5 5-7 [facility] Leukocyte Lnwwbzde7696-01-05 11:38:00* Test Item Value Reference Range Interpretation Comments Urine Leukocyte Esterase (test code = 5799-2) NEGATIVE NEGATIVE [facility] Eibshdr4935-76-08 11:38:00* Test Item Value Reference Range Interpretation Comments Urine Nitrite (test code = 10960-2) NEGATIVE NEGATIVE [facility] Pldzywr4752-09-16 11:38:00* Test Item Value Reference Range Interpretation Comments Urine Protein (test code = 5804-0) TRACE NEGATIVE H [facility] Glucose (UA)2019-04-04 11:38:00* Test Item Value Reference Range Interpretation Comments Urine Glucose (UA) (test code = 2349-9) NEGATIVE NEGATIVE [facility] Btvlmub6341-52-99 11:38:00* Test Item Value Reference Range Interpretation Comments Urine Ketones (test code = 95993-5) NEGATIVE NEGATIVE [facility] Pjgsibhjshit2431-12-35 11:38:00* Test Item Value Reference Range Interpretation Comments Urine Urobilinogen (test code = 40010-7) 0.2 0.2-1 [facility] Lcircvhmf9557-38-37 11:38:00* Test Item Value Reference Range Interpretation Comments Urine Bilirubin (test code = 1978-6) NEGATIVE NEGATIVE [facility] Kxjnz1042-41-95 11:38:00* Test Item Value Reference Range Interpretation Comments Urine Blood (test code = 54933-1) NEGATIVE NEGATIVE [facility] [id number] 11:38:00* Test Item Value Reference Range Interpretation Comments Urine WBC (test code = 5821-4) 0-5 0-5 [facility] [id number] 11:38:00* Test Item Value Reference Range Interpretation Comments Urine RBC (test code = 95160-4) 0-5 0-5 [facility] Meeuscyr1381-61-14 11:38:00* Test Item Value Reference Range Interpretation Comments Urine Bacteria (test code = 57341-1) RARE NONE [facility] Epithelial Aoqmi8659-27-90 11:38:00 * Test Item Value Reference Range Interpretation Comments Urine Epithelial Cells (test code = 04293-1) FEW NONE [facility] Ttshc0254-84-24 11:26:00* Test Item Value Reference Range Interpretation Comments Sodium Level (test code = 2951-2) 137 136-145 [facility] HospitalPotassium Nyufw9288-35-12 11:26:00* Test Item Value Reference Range Interpretation Comments Potassium Level (test code = 2823-3) 3.7 3.5-5.1 [facility] HospitalChloride Eztln3907-16-08 11:26:00* Test Item Value Reference Range Interpretation Comments Chloride Level (test code = 2075-0) 105 98-107 [facility] HospitalCarbon Dioxide Ajtev5431-62-01 11:26:00* Test Item Value Reference Range Interpretation Comments Carbon Dioxide Level (test code = 2028-9) 20 22-29 L [facility] HospitalAnion [id number] 11:26:00* Test Item Value Reference Range Interpretation Comments Anion Gap (test code = 90148-2) 15.7 8-16 [facility] Hospital[facility] Urea Phfykagf9623-41-58 11:26:00* Test Item Value Reference Range Interpretation Comments Blood Urea Nitrogen (test code = 3094-0) 10 7-26 [facility] HospitalCreatinine2019-12-03 11:26:00* Test Item Value Reference Range Interpretation Comments Creatinine (test code = 2160-0) 1.35 0.72-1.25 H [facility] HospitalBUN/Creatinine Garov7350-41-98 11:26:00* Test Item Value Reference Range Interpretation Comments BUN/Creatinine Ratio (test code = 3097-3) 7 6- [facility] HospitalEstimat Glomerular Filtration Rate 2019-04-04 11:26:00* Test Item Value Reference Range Interpretation Comments Estimat Glomerular Filtration Rate (test code = 462031313) > 60 >60 Ranges were taken from the National Kidney Disease Education Program and the Mary count includes the [facility] Kidney Foundation literature.Reference ranges:60 or greater: Lggdaa98-34 ( for 3 consecutive months): Chronic kidney disease 15 or less: Kidney failureTexas Orthopedic HospitalGlucose Cuadp9195-25-09 11:26:00* Test Item Value Reference Range Interpretation Comments Glucose Level (test code = BGZ7321) 106 74-118 [facility] HospitalCalcium Wzdhg9315-78-16 11:26:00* Test Item Value Reference Range Interpretation Comments Calcium Level (test code = 12873-3) 9.8 8.4-10.2 [facility] HospitalMagnesium Bfijn0902-04-38 11:26:00* Test Item Value Reference Range Interpretation Comments Magnesium Level (test code = 91743-5) 1.8 1.3-2.1 [facility] HospitalTotal Gfxvuiknl7567-65-82 11:26:00* Test Item Value Reference Range Interpretation Comments Total Bilirubin (test code = 1975-2) 0.7 0.2-1.2 [facility] HospitalAspartate Amino Transf (AST/SGOT) 2019-04-04 11:26:00* Test Item Value Reference Range Interpretation Comments Aspartate Amino Transf (AST/SGOT) (test code = Aspartate Amino Transf (AST/SGOT)) 15 5-34 [facility] HospitalAlanine Aminotransferase (ALT/SGPT) 2019-04-04 11:26:00* Test Item Value Reference Range Interpretation Comments Alanine Aminotransferase (ALT/SGPT) (test code = 1742-6) 19 0-55 [facility] HospitalTotal Dsmmcwq6030-11-49 11:26:00* Test Item Value Reference Range Interpretation Comments Total Protein (test code = 2885-2) 8.2 6.5-8.1 H [facility] HospitalAlbumin2019-12-03 11:26:00* Test Item Value Reference Range Interpretation Comments Albumin (test code = 1751-7) 4.2 3.5-5.0 [facility] HospitalGlobulin2019-12-03 11:26:00* Test Item Value Reference Range Interpretation Comments Globulin (test code = 33559-4) 4.0 2.3-3.5 H [facility] HospitalAlbumin/Globulin Nyaao9729-21-59 11:26:00 * Test Item Value Reference Range Interpretation Comments Albumin/Globulin Ratio (test code = 1759-0) 1.1 0.8-2.0 [facility] HospitalAlkaline Hwsfqudyxza3272-96-04 11:26:00* Test Item Value Reference Range Interpretation Comments Alkaline Phosphatase (test code = 6768-6) 76 40-150 [facility] HospitalCreatine Edlcbu9101-59-94 11:26:00* Test Item Value Reference Range Interpretation Comments Creatine Kinase (test code = 2157-6) 77 30-200 [facility] HospitalCreatine Kinase [id number] 11:26:00* Test Item Value Reference Range Interpretation Comments Creatine Kinase MB (test code = 35192-8) 0.60 0-5.0 [facility] HospitalTroponin [id number] 11:26:00* Test Item Value Reference Range Interpretation Comments Troponin I (test code = QQK0289) 0.068 0-0.300 [facility] HospitalAmylase Gfswf5098-62-44 11:26:00* Test Item Value Reference Range Interpretation Comments Amylase Level (test code = 1798-8) 90 25-125 [facility] HospitalLipase2019-12-03 11:26:00* Test Item Value Reference Range Interpretation Comments Lipase (test code = 3040-3) 16 8-78 [facility] HospitalLactic Acid Hjmtp3588-98-81 11:25:00* Test Item Value Reference Range Interpretation Comments Lactic Acid Level (test code = Lactic Acid Level) 1.2 0.5- 2.0 [facility] HospitalProthrombin Gpxr6024-45-69 10:58:00* Test Item Value Reference Range Interpretation Comments Prothrombin Time (test code = 5902-2) 13.2 11.9-14.5 [facility] HospitalProthromb Time International Ratio 2019-04-04 10:58:00* Test Item Value Reference Range Interpretation Comments Prothromb Time International Ratio (test code = 6301-6) 0.95 Oral Anticoagulant Therapy INR Values:1. Low Intensity Therapy 1.5 - 2.02 . Moderate Intensity Therapy 2.0 - 3.03. High Intensity Therapy(1) 2.5 - 3. 54. High Intensity Therapy(2) 3.0 - 4.05. Panic Value INR > 5.0 [facility] HospitalActivated Partial Thromboplast Time 2019-04-04 10:58:00* Test Item Value Reference Range Interpretation Comments Activated Partial Thromboplast Time (test code = 03152-0) 29.7 23.8-35.5 [facility] HospitalCHEST SINGLE (PORTABLE)2019-04-04 10:27:00 [facility] [address] [address] Patient Name: QUYEN KIM MR #: [id number] : 1980 Age/Sex: 38/M Req #: [id number] Adm Physician: Ordered by: BRANDO MONTGOMERY MD Report #: [id number] Location: ER Room/Bed: Procedure: [id number] DX/CH EST SINGLE (PORTABLE) Exam Date: 04/04/19 Exam Time: 1013 REPORT STATUS: Signed EXAM: CHEST SINGLE (PORTABLE) DATE: 04/04/2019 9:11 AM INDICATION: Short ness breath, abdominal pain COMPARISON: None FINDINGS: The trachea is midline. The lungs are symmetrically expanded without evidence for large fo kristian consolidation, pneumothorax, or significant pleural effusion. The cardi omediastinal silhouette and pulmonary vasculature are within normal limits. No acute osseous abnormality is identified. The surrounding soft tissues are unr emarkable. IMPRESSION: No acute cardiopulmonary process identified. Signed by: Dr. Evelio Marin MD on 04/04/2019 10:28 AM Dictated By: EVELIO MARIN MD 1028 Tra nscribed By: JEANNE on 04/04/19 1028 COPY TO: BRANDO MONTGOMERY MD White Blood Wjvlh1362-50-39 10:10:00* Test Item Value Reference Range Interpretation Comments White Blood Count (test code = 6690-2) 8.03 4.8-10.8 [facility] HospitalRed Blood Htzbs9568-57-12 10:10:00* Test Item Value Reference Range Interpretation Comments Red Blood Count (test code = 789-8) 3.79 4.3-5.7 L [facility] HospitalHemoglobin2019-12-03 10:10:00* Test Item Value Reference Range Interpretation Comments Hemoglobin (test code = 95060-3) 12.3 14.0-18.0 L [facility] HospitalHematocrit2019-12-03 10:10:00* Test Item Value Reference Range Interpretation Comments Hematocrit (test code = 4544-3) 36.2 38.2-49.6 L [facility] HospitalMean Corpuscular Txbhdd1822-56-71 10:10:00* Test Item Value Reference Range Interpretation Comments Mean Corpuscular Volume (test code = 787-2) 95.5 81-99 [facility]Mean Corpuscular Mcpdnduvxe2218-49-44 10:10:00* Test Item Value Reference Range Interpretation Comments Mean Corpuscular Hemoglobin (test code = 785-6) 32.5 28-32 H [facility]Mean Corpuscular Hemoglobin Concent 2019-04-04 10:10:00* Test Item Value Reference Range Interpretation Comments Mean Corpuscular Hemoglobin Concent (test code = 786-4) 34.0 31-35 [facility] HospitalRed Cell Distribution Fhnoc4814-57-38 10:10:00* Test Item Value Reference Range Interpretation Comments Red Cell Distribution Width (test code = 87588-7) 12.6 11.7 -14.4 [facility] HospitalPlatelet Nhokk5806-15-10 10:10:00* Test Item Value Reference Range Interpretation Comments Platelet Count (test code = 777-3) 260 140-360 [facility] HospitalNeutrophils (%) (Auto)2019-04-04 10:10:00 * Test Item Value Reference Range Interpretation Comments Neutrophils (%) (Auto) (test code = 44393-8) 57.8 38.7-80.0 [facility] HospitalLymphocytes (%) (Auto)2019-04-04 10:10:00 * Test Item Value Reference Range Interpretation Comments Lymphocytes (%) (Auto) (test code = 736-9) 33.6 18.0-39.1 [facility] HospitalMonocytes (%) (Auto)2019-04-04 10:10:00* Test Item Value Reference Range Interpretation Comments Monocytes (%) (Auto) (test code = 5905-5) 7.1 4.4-11.3 [facility] HospitalEosinophils (%) (Auto)2019-04-04 10:10:00 * Test Item Value Reference Range Interpretation Comments Eosinophils (%) (Auto) (test code = 713-8) 0.6 0.0-6.0 [facility] HospitalBasophils (%) (Auto)2019-04-04 10:10:00* Test Item Value Reference Range Interpretation Comments Basophils (%) (Auto) (test code = 706-2) 0.5 0.0-1.0 [facility] HospitalIM GRANULOCYTES %2019-04-04 10:10:00* Test Item Value Reference Range Interpretation Comments IM GRANULOCYTES % (test code = IM GRANULOCYTES %) 0.4 0.0- 1.0 [facility] HospitalNeutrophils # (Auto)2019-04-04 10:10:00* Test Item Value Reference Range Interpretation Comments Neutrophils # (Auto) (test code = 751-8) 4.6 2.1-6.9 [facility] HospitalLymphocytes # (Auto)2019-04-04 10:10:00* Test Item Value Reference Range Interpretation Comments Lymphocytes # (Auto) (test code = 35853-0) 2.7 1.0-3.2 [facility] HospitalMonocytes # (Auto)2019-04-04 10:10:00* Test Item Value Reference Range Interpretation Comments Monocytes # (Auto) (test code = 742-7) 0.6 0.2-0.8 [facility] HospitalEosinophils # (Auto)2019-04-04 10:10:00* Test Item Value Reference Range Interpretation Comments Eosinophils # (Auto) (test code = 711-2) 0.1 0.0-0.4 [facility] HospitalBasophils # (Auto)2019-04-04 10:10:00* Test Item Value Reference Range Interpretation Comments Basophils # (Auto) (test code = 704-7) 0.0 0.0-0.1 [facility] HospitalAbsolute Immature Granulocyte (auto 2019-04-04 10:10:00* Test Item Value Reference Range Interpretation Comments Absolute Immature Granulocyte (auto (jourdan t code = Absolute Immature Granulocyte (auto) 0.03 0-0.1 [facility] HospitalTissue Transglutaminase IgA Ba2224-36-80 06:10:00* Test Item Value Reference Range Interpretation Comments Tissue Transglutaminase IgA Ab (test code = 02267-6) <2 0 -3 Negative 0 - 3 Weak Positive 4 - 10 Positive >10 Tissue Transglutaminase (tTG) has been identified as the endomysial antigen. Studies have demonstr- ated that endomysial IgA antibodies have over 99% specif icity for gluten sensitive enteropathy.[facility] Immunoglobulin [id number] 06:10:00* Test Item Value Reference Range Interpretation Comments Immunoglobulin A (test code = 2458-8) 150 90-386 Performed at: - [facility] [address] [id number] Lift Supervisor: Lai Olson MD, Phone: [phone] at: - [facility] [address] [id number] Director: Alejo Malin MD, Ph one: [phone] Orthopedic HospitalEndomysial IgA Antibody 2019-03-21 06:10:00* Test Item Value Reference Range Interpretation Comments Endomysial IgA Antibody (test code = 89042-8) Negative Negative [facility] HospitalTissue Transglutaminase IgA Rt8467-71-96 06:10:00* Test Item Value Reference Range Interpretation Comments Tissue Transglutaminase IgA Ab (test code = 21097-0) <2 0 -3 Negative 0 - 3 Weak Positive 4 - 10 Positive >10 Tissue Transglutaminase (tTG) has been identified as the endomysial antigen. Studies have demonstr- ated that endomysial IgA antibodies have over 99% specif icity for gluten sensitive enteropathy.[facility] Immunoglobulin Y0365-08-02 06:10:00* Test Item Value Reference Range Interpretation Comments Immunoglobulin A (test code = 2458-8) 150 90-386 Performed at: [address] [id number] Lift Supervisor: Lai Olson MD, Phone: [phone] at: [address] [id number] Director: Alejo Malin MD, Ph one: [phone] Orthopedic HospitalEndomysial IgA Antibody 2019-03-21 06:10:00* Test Item Value Reference Range Interpretation Comments Endomysial IgA Antibody (test code = 40067-9) Negative Negative [facility] HospitalBlood Tdvlmsa9070-93-64 14:11:00* Test Item Value Reference Range Interpretation Comments Blood Culture (test code = 80459688) NO GROWTH AFTER 5 DAYS, [facility] Lbdidnc5490[facility]-70 14:11:00* Test Item Value Reference Range Interpretation Comments Blood Culture (test code = 31601664) NO GROWTH AFTER 5 DAYS, FINAL REPORT [facility] Folate Ayvjiitiww2745-20-42 20:40:00 * Test Item Value Reference Range Interpretation Comments RBC Folate Hemolysate (test code = 2282-2) 268.2 Not Estab. [facility] HospitalHematocrit2019-11-15 20:40:00* Test Item Value Reference Range Interpretation Comments Hematocrit (test code = 4544-3) 29.1 37.5-51.0 L [facility] Folate Redflmzlqh9591-73-06 20:40:00 * Test Item Value Reference Range Interpretation Comments RBC Folate Hemolysate (test code = 2283-0) 922 >498 Performed at: [facility] [id number] Director: Alejo Malin MD, Phone: [phone] Orthopedic HospitalC-Reactive Eyppvzg6705-29-85 20:40:00* Test Item Value Reference Range Interpretation Comments C-Reactive Protein (test code = 1988-5) 3 0-10 Performed at: [address] [id number] Director: Alejo Malin MD, Phone: [phone] Medical Center Folate Nzrtjaojif9338-86-14 20:40:00* Test Item Value Reference Range Interpretation Comments RBC Folate Hemolysate (test code = 2282-2) 268.2 Not Estab. [facility] HospitalHematocrit2019-11-15 20:40:00* Test Item Value Reference Range Interpretation Comments Hematocrit (test code = 4544-3) 29.1 37.5-51.0 L [facility] Folate Oozqszbtoa0056-99-01 20:40:00 * Test Item Value Reference Range Interpretation Comments RBC Folate Hemolysate (test code = 2283-0) 922 >498 Performed at: [address] [id number] Director: Alejo Malin MD, Phone: [phone] Orthopedic HospitalC-Reactive Siyyzag2806-77-34 20:40:00* Test Item Value Reference Range Interpretation Comments C-Reactive Protein (test code = 1987-5) 3 0-10 Performed at: [address] [id number] Director: Alejo Malin MD, Phone: [phone] Orthopedic HospitalBlood Pqeanma7986-67-31 14:11:00* Test Item Value Reference Range Interpretation Comments Blood Culture (test code = 29090430) NO GROWTH AFTER 72 HOURS [facility] HospitalDifferential Total Cells Counted 2019-03-16 10:54:00* Test Item Value Reference Range Interpretation Comments Differential Total Cells Counted (test code = Differen tial Total Cells Counted) 100 [facility] HospitalNeutrophils % (Manual)2019-03-16 10:54:00 * Test Item Value Reference Range Interpretation Comments Neutrophils % (Manual) (test code = 02551-3) 42 40-74 [facility] HospitalLymphocytes % (Manual)2019-03-16 10:54:00 * Test Item Value Reference Range Interpretation Comments Lymphocytes % (Manual) (test code = 737-7) 49 19-48 H [facility] HospitalMonocytes % (Manual)2019-03-16 10:54:00* Test Item Value Reference Range Interpretation Comments Monocytes % (Manual) (test code = 744-3) 5 3.4-9.0 [facility] HospitalReactive Qcofaadngoh9415-81-58 10:54:00* Test Item Value Reference Range Interpretation Comments Reactive Lymphocytes (test code = 32221-8) 4 [facility] HospitalPlatelet Dtvebbdp5441-23-99 10:54:00* Test Item Value Reference Range Interpretation Comments Platelet Estimate (test code = 25703-2) ADEQUATE [facility] HospitalPlatelet Morphology Rikdadr7474-55-05 10:54:00* Test Item Value Reference Range Interpretation Comments Platelet Morphology Comment (test code = 47003-3) NORMAL [facility] HospitalRed Cell Morphology Ejxoigf2543-59-14 10:54:00* Test Item Value Reference Range Interpretation Comments Red Cell Morphology Comment (test code = 6742-1) NORMAL [facility] HospitalDifferential Total Cells Counted 2019-03-16 10:54:00* Test Item Value Reference Range Interpretation Comments Differential Total Cells Counted (test code = Differen tial Total Cells Counted) 100 [facility] HospitalNeutrophils % (Manual)2019-03-16 10:54:00 * Test Item Value Reference Range Interpretation Comments Neutrophils % (Manual) (test code = 70404-3) 42 40-74 [facility] HospitalLymphocytes % (Manual)2019-03-16 10:54:00 * Test Item Value Reference Range Interpretation Comments Lymphocytes % (Manual) (test code = 737-7) 49 19-48 H [facility] HospitalMonocytes % (Manual)2019-03-16 10:54:00* Test Item Value Reference Range Interpretation Comments Monocytes % (Manual) (test code = 744-3) 5 3.4-9.0 [facility] HospitalReactive Othpqylhuws9402-50-86 10:54:00* Test Item Value Reference Range Interpretation Comments Reactive Lymphocytes (test code = 70260-2) 4 [facility] HospitalPlatelet Iautxaqd9206-08-19 10:54:00* Test Item Value Reference Range Interpretation Comments Platelet Estimate (test code = 72665-5) ADEQUATE [facility] HospitalPlatelet Morphology Txjixsz7663-86-34 10:54:00* Test Item Value Reference Range Interpretation Comments Platelet Morphology Comment (test code = 20226-4) NORMAL [facility] HospitalRed Cell Morphology Vjtcymb8271-75-69 10:54:00* Test Item Value Reference Range Interpretation Comments Red Cell Morphology Comment (test code = 6742-1) NORMAL [facility] HospitalDifferential Total Cells Counted 2019-03-16 10:54:00* Test Item Value Reference Range Interpretation Comments Differential Total Cells Counted (test code = Differen tial Total Cells Counted) 100 [facility] HospitalNeutrophils % (Manual)2019-03-16 10:54:00 * Test Item Value Reference Range Interpretation Comments Neutrophils % (Manual) (test code = 55062-3) 42 40-74 [facility] HospitalLymphocytes % (Manual)2019-03-16 10:54:00 * Test Item Value Reference Range Interpretation Comments Lymphocytes % (Manual) (test code = 737-7) 49 19-48 H [facility] HospitalMonocytes % (Manual)2019-03-16 10:54:00* Test Item Value Reference Range Interpretation Comments Monocytes % (Manual) (test code = 744-3) 5 3.4-9.0 [facility] HospitalReactive Ybvizbscfjz6546-15-93 10:54:00* Test Item Value Reference Range Interpretation Comments Reactive Lymphocytes (test code = 07738-9) 4 [facility] HospitalPlatelet Ucxomord1330-87-06 10:54:00* Test Item Value Reference Range Interpretation Comments Platelet Estimate (test code = 68612-4) ADEQUATE [facility] HospitalPlatelet Morphology Uoobxvd2569-51-02 10:54:00* Test Item Value Reference Range Interpretation Comments Platelet Morphology Comment (test code = 75182-6) NORMAL [facility] HospitalRed Cell Morphology Uckdcqg6057-36-82 10:54:00* Test Item Value Reference Range Interpretation Comments Red Cell Morphology Comment (test code = 6742-1) NORMAL [facility] Southodium Ifgqq3419-97-36 08:19:00* Test Item Value Reference Range Interpretation Comments Sodium Level (test code = 2951-2) 138 136-145 [facility] HospitalPotassium Ighkm2589-61-83 08:19:00* Test Item Value Reference Range Interpretation Comments Potassium Level (test code = 2823-3) 3.3 3.5-5.1 L [facility] HospitalChloride Jnxjv9371-89-24 08:19:00* Test Item Value Reference Range Interpretation Comments Chloride Level (test code = 2075-0) 107 98-107 [facility] HospitalCarbon Dioxide Enach0566-00-32 08:19:00* Test Item Value Reference Range Interpretation Comments Carbon Dioxide Level (test code = 2028-9) 22 22-29 [facility] HospitalAnion Upp1144-30-68 08:19:00* Test Item Value Reference Range Interpretation Comments Anion Gap (test code = 04056-7) 12.3 8-16 [facility] HospitalBlood Urea Qszftcuv9108-66-62 08:19:00* Test Item Value Reference Range Interpretation Comments Blood Urea Nitrogen (test code = 3094-0) < 5 7-26 L [facility] HospitalCreatinine2019-11-14 08:19:00* Test Item Value Reference Range Interpretation Comments Creatinine (test code = 2160-0) 1.20 0.72-1.25 [facility] HospitalBUN/Creatinine Ixpyl6874-00-59 08:19:00* Test Item Value Reference Range Interpretation Comments BUN/Creatinine Ratio (test code = 3097-3) 4 6-25 L [facility] HospitalEstimat Glomerular Filtration Rate 2019-03-16 08:19:00* Test Item Value Reference Range Interpretation Comments Estimat Glomerular Filtration Rate (test code = 301816071) > 60 >60 Ranges were taken from the National Kidney Disease Education Program and the [facility] Kidney Foundation literature.Reference ranges:60 or greater: Scuxxt61-74 ( for 3 consecutive months): Chronic kidney disease 15 or less: Kidney failureTexas Orthopedic HospitalGlucose Kixqq3363-78-49 08:19:00* Test Item Value Reference Range Interpretation Comments Glucose Level (test code = ZFN3454) 92 74-118 [facility] HospitalCalcium Jawdj1718-92-82 08:19:00* Test Item Value Reference Range Interpretation Comments Calcium Level (test code = 30703-5) 9.0 8.4-10.2 [facility] Southodium Cwwog2663-85-87 08:19:00* Test Item Value Reference Range Interpretation Comments Sodium Level (test code = 2951-2) 138 136-145 [facility] HospitalPotassium Bpaul9677-16-19 08:19:00* Test Item Value Reference Range Interpretation Comments Potassium Level (test code = 2823-3) 3.3 3.5-5.1 L [facility] HospitalChloride Qjmqa5877-05-88 08:19:00* Test Item Value Reference Range Interpretation Comments Chloride Level (test code = 2075-0) 107 98-107 [facility] HospitalCarbon Dioxide Uonno5306-37-47 08:19:00* Test Item Value Reference Range Interpretation Comments Carbon Dioxide Level (test code = 2028-9) 22 22-29 [facility] HospitalAnion Tox7604-58-71 08:19:00* Test Item Value Reference Range Interpretation Comments Anion Gap (test code = 39731-6) 12.3 8-16 [facility] HospitalBlood Urea Mzmzcujd3082-28-18 08:19:00* Test Item Value Reference Range Interpretation Comments Blood Urea Nitrogen (test code = 3094-0) < 5 7-26 L [facility] HospitalCreatinine2019-11-14 08:19:00* Test Item Value Reference Range Interpretation Comments Creatinine (test code = 2160-0) 1.20 0.72-1.25 [facility] HospitalBUN/Creatinine Gsuni5313-13-28 08:19:00* Test Item Value Reference Range Interpretation Comments BUN/Creatinine Ratio (test code = 3097-3) 4 6-25 L [facility] HospitalEstimat Glomerular Filtration Rate 2019-03-16 08:19:00* Test Item Value Reference Range Interpretation Comments Estimat Glomerular Filtration Rate (test code = 629416878) > 60 >60 Ranges were taken from the National Kidney Disease Education Program and the [facility]ney Foundation literature.Reference ranges:60 or greater: Krjlxu45-45 ( for 3 consecutive months): Chronic kidney disease 15 or less: Kidney failureTexas Orthopedic HospitalGlucose Trazd3135-74-93 08:19:00* Test Item Value Reference Range Interpretation Comments Glucose Level (test code = KYF8462) 92 74-118 [facility] HospitalCalcium Ezicl8250-53-15 08:19:00* Test Item Value Reference Range Interpretation Comments Calcium Level (test code = 34207-1) 9.0 8.4-10.2 [facility] HospitalWhite Blood Vwnkg5353-88-42 05:34:00* Test Item Value Reference Range Interpretation Comments White Blood Count (test code = 6690-2) 3.70 4.8-10.8 L [facility] HospitalRed Blood Kjytk1578-15-73 05:34:00* Test Item Value Reference Range Interpretation Comments Red Blood Count (test code = 789-8) 3.06 4.3-5.7 L [facility] HospitalHemoglobin2019-11-14 05:34:00* Test Item Value Reference Range Interpretation Comments Hemoglobin (test code = 21830-9) 9.9 14.0-18.0 L [facility] HospitalHematocrit2019-11-14 05:34:00* Test Item Value Reference Range Interpretation Comments Hematocrit (test code = 4544-3) 29.2 38.2-49.6 L [facility] HospitalMean Corpuscular Qakzup1028-15-67 05:34:00* Test Item Value Reference Range Interpretation Comments Mean Corpuscular Volume (test code = 787-2) 95.4 81-99 [facility] HospitalMean Corpuscular Gdejpekeyd1125-39-46 05:34:00* Test Item Value Reference Range Interpretation Comments Mean Corpuscular Hemoglobin (test code = 785-6) 32.4 28-32 H [facility] HospitalMean Corpuscular Hemoglobin Concent 2019-03-16 05:34:00* Test Item Value Reference Range Interpretation Comments Mean Corpuscular Hemoglobin Concent (test code = 786-4) 33.9 31-35 [facility] HospitalRed Cell Distribution Amgih2525-31-43 05:34:00* Test Item Value Reference Range Interpretation Comments Red Cell Distribution Width (test code = 95756-4) 11.7 11.7 -14.4 [facility] HospitalPlatelet Kwphr3989-28-05 05:34:00* Test Item Value Reference Range Interpretation Comments Platelet Count (test code = 777-3) 174 140-360 [facility] HospitalNeutrophils (%) (Auto)2019-03-16 05:34:00 * Test Item Value Reference Range Interpretation Comments Neutrophils (%) (Auto) (test code = 20751-9) 41.6 38.7-80.0 [facility] HospitalLymphocytes (%) (Auto)2019-03-16 05:34:00 * Test Item Value Reference Range Interpretation Comments Lymphocytes (%) (Auto) (test code = 736-9) 47.6 18.0-39.1 H [facility] HospitalMonocytes (%) (Auto)2019-03-16 05:34:00* Test Item Value Reference Range Interpretation Comments Monocytes (%) (Auto) (test code = 5905-5) 8.4 4.4-11.3 [facility] HospitalEosinophils (%) (Auto)2019-03-16 05:34:00 * Test Item Value Reference Range Interpretation Comments Eosinophils (%) (Auto) (test code = 713-8) 1.6 0.0-6.0 [facility] HospitalBasophils (%) (Auto)2019-03-16 05:34:00* Test Item Value Reference Range Interpretation Comments Basophils (%) (Auto) (test code = 706-2) 0.3 0.0-1.0 [facility] HospitalIM GRANULOCYTES %2019-03-16 05:34:00* Test Item Value Reference Range Interpretation Comments IM GRANULOCYTES % (test code = IM GRANULOCYTES %) 0.5 0.0- 1.0 [facility] HospitalNeutrophils # (Auto)2019-03-16 05:34:00* Test Item Value Reference Range Interpretation Comments Neutrophils # (Auto) (test code = 751-8) 1.5 2.1-6.9 L [facility] HospitalLymphocytes # (Auto)2019-03-16 05:34:00* Test Item Value Reference Range Interpretation Comments Lymphocytes # (Auto) (test code = 35375-3) 1.8 1.0-3.2 [facility] HospitalMonocytes # (Auto)2019-03-16 05:34:00* Test Item Value Reference Range Interpretation Comments Monocytes # (Auto) (test code = 742-7) 0.3 0.2-0.8 [facility] HospitalEosinophils # (Auto)2019-03-16 05:34:00* Test Item Value Reference Range Interpretation Comments Eosinophils # (Auto) (test code = 711-2) 0.1 0.0-0.4 [facility] HospitalBasophils # (Auto)2019-03-16 05:34:00* Test Item Value Reference Range Interpretation Comments Basophils # (Auto) (test code = 704-7) 0.0 0.0-0.1 [facility] HospitalAbsolute Immature Granulocyte (auto 2019-03-16 05:34:00* Test Item Value Reference Range Interpretation Comments Absolute Immature Granulocyte (auto (jourdan t code = Absolute Immature Granulocyte (auto) 0.02 0-0.1 [facility] HospitalWhite Blood Yzmxa2302-70-31 05:34:00* Test Item Value Reference Range Interpretation Comments White Blood Count (test code = 6690-2) 3.70 4.8-10.8 L [facility] HospitalRed Blood Fybyz5293-39-34 05:34:00* Test Item Value Reference Range Interpretation Comments Red Blood Count (test code = 789-8) 3.06 4.3-5.7 L [facility] HospitalHemoglobin2019-11-14 05:34:00* Test Item Value Reference Range Interpretation Comments Hemoglobin (test code = 03074-1) 9.9 14.0-18.0 L [facility] HospitalHematocrit2019-11-14 05:34:00* Test Item Value Reference Range Interpretation Comments Hematocrit (test code = 4544-3) 29.2 38.2-49.6 L [facility] HospitalMean Corpuscular Tvnyhz7489-46-52 05:34:00* Test Item Value Reference Range Interpretation Comments Mean Corpuscular Volume (test code = 787-2) 95.4 81-99 [facility]Mean Corpuscular Ujjhfkvmin8664-03-16 05:34:00* Test Item Value Reference Range Interpretation Comments Mean Corpuscular Hemoglobin (test code = 785-6) 32.4 28-32 H [facility] HospitalMean Corpuscular Hemoglobin Concent 2019-03-16 05:34:00* Test Item Value Reference Range Interpretation Comments Mean Corpuscular Hemoglobin Concent (test code = 786-4) 33.9 31-35 [facility] HospitalRed Cell Distribution Rzrsw0922-27-87 05:34:00* Test Item Value Reference Range Interpretation Comments Red Cell Distribution Width (test code = 02953-9) 11.7 11.7 -14.4 [facility] HospitalPlatelet Rbwvl9391-04-39 05:34:00* Test Item Value Reference Range Interpretation Comments Platelet Count (test code = 777-3) 174 140-360 [facility] HospitalNeutrophils (%) (Auto)2019-03-16 05:34:00 * Test Item Value Reference Range Interpretation Comments Neutrophils (%) (Auto) (test code = 31952-8) 41.6 38.7-80.0 [facility] HospitalLymphocytes (%) (Auto)2019-03-16 05:34:00 * Test Item Value Reference Range Interpretation Comments Lymphocytes (%) (Auto) (test code = 736-9) 47.6 18.0-39.1 H [facility] HospitalMonocytes (%) (Auto)2019-03-16 05:34:00* Test Item Value Reference Range Interpretation Comments Monocytes (%) (Auto) (test code = 5905-5) 8.4 4.4-11.3 [facility] HospitalEosinophils (%) (Auto)2019-03-16 05:34:00 * Test Item Value Reference Range Interpretation Comments Eosinophils (%) (Auto) (test code = 713-8) 1.6 0.0-6.0 [facility] HospitalBasophils (%) (Auto)2019-03-16 05:34:00* Test Item Value Reference Range Interpretation Comments Basophils (%) (Auto) (test code = 706-2) 0.3 0.0-1.0 [facility] HospitalIM GRANULOCYTES %2019-03-16 05:34:00* Test Item Value Reference Range Interpretation Comments IM GRANULOCYTES % (test code = IM GRANULOCYTES %) 0.5 0.0- 1.0 [facility] HospitalNeutrophils # (Auto)2019-03-16 05:34:00* Test Item Value Reference Range Interpretation Comments Neutrophils # (Auto) (test code = 751-8) 1.5 2.1-6.9 L [facility] HospitalLymphocytes # (Auto)2019-03-16 05:34:00* Test Item Value Reference Range Interpretation Comments Lymphocytes # (Auto) (test code = 74428-4) 1.8 1.0-3.2 [facility] HospitalMonocytes # (Auto)2019-03-16 05:34:00* Test Item Value Reference Range Interpretation Comments Monocytes # (Auto) (test code = 742-7) 0.3 0.2-0.8 [facility] HospitalEosinophils # (Auto)2019-03-16 05:34:00* Test Item Value Reference Range Interpretation Comments Eosinophils # (Auto) (test code = 711-2) 0.1 0.0-0.4 [facility] HospitalBasophils # (Auto)2019-03-16 05:34:00* Test Item Value Reference Range Interpretation Comments Basophils # (Auto) (test code = 704-7) 0.0 0.0-0.1 [facility] HospitalAbsolute Immature Granulocyte (auto 2019-03-16 05:34:00* Test Item Value Reference Range Interpretation Comments Absolute Immature Granulocyte (auto (jourdan t code = Absolute Immature Granulocyte (auto) 0.02 0-0.1 [facility] HospitalVitamin B12 Stufe5486-93-50 21:54:00* Test Item Value Reference Range Interpretation Comments Vitamin B12 Level (test code = 73148-2) 605 213-816 [facility] HospitalVitamin B12 Cisfq8564-69-25 21:54:00* Test Item Value Reference Range Interpretation Comments Vitamin B12 Level (test code = 61018-7) 605 213-816 [facility] HospitalVitamin B12 Wdnwu8990-66-81 21:54:00* Test Item Value Reference Range Interpretation Comments Vitamin B12 Level (test code = 12419-4) 605 213-816 [facility] HospitalFerritin2019-11-13 21:44:00* Test Item Value Reference Range Interpretation Comments Ferritin (test code = 2276-4) 387.29 21.81-274.66 H [facility] HospitalThyroid Stimulating Hormone (TSH) 2019-03-15 21:44:00* Test Item Value Reference Range Interpretation Comments Thyroid Stimulating Hormone (TSH) (test code = 32356-0) 2.573 0.350-4.940 [facility] HospitalFerritin2019-11-13 21:44:00* Test Item Value Reference Range Interpretation Comments Ferritin (test code = 2276-4) 387.29 21.81-274.66 H [facility] HospitalThyroid Stimulating Hormone (TSH) 2019-03-15 21:44:00* Test Item Value Reference Range Interpretation Comments Thyroid Stimulating Hormone (TSH) (test code = 65354-7) 2.573 0.350-4.940 [facility] HospitalFerritin2019-11-13 21:44:00* Test Item Value Reference Range Interpretation Comments Ferritin (test code = 2276-4) 387.29 21.81-274.66 H [facility] HospitalThyroid Stimulating Hormone (TSH) 2019-03-15 21:44:00* Test Item Value Reference Range Interpretation Comments Thyroid Stimulating Hormone (TSH) (test code = 70664-8) 2.573 0.350-4.940 [facility] HospitalErythrocyte Sedimentation Qfkg1228-24-59 21:33:00* Test Item Value Reference Range Interpretation Comments Erythrocyte Sedimentation Rate (test code = 4537-7) 62 0- 13 H [facility] HospitalErythrocyte Sedimentation Vqyv6875-06-26 21:33:00* Test Item Value Reference Range Interpretation Comments Erythrocyte Sedimentation Rate (test code = 4537-7) 62 0- 13 H [facility] HospitalErythrocyte Sedimentation Ttjg0902-13-23 21:33:00* Test Item Value Reference Range Interpretation Comments Erythrocyte Sedimentation Rate (test code = 4537-7) 62 0- 13 H [facility] HospitalIron Pajre2343-33-79 21:22:00* Test Item Value Reference Range Interpretation Comments Iron Level (test code = 2498-4) 69 65-175 [facility] HospitalTotal Iron Binding Vzahtkuw3905-61-38 21:22:00* Test Item Value Reference Range Interpretation Comments Total Iron Binding Capacity (test code = 2500-7) 256 261-4 78 L [facility] HospitalPercent Iron Frwdxzjeuf9523-93-36 21:22:00* Test Item Value Reference Range Interpretation Comments Percent Iron Saturation (test code = 2502-3) 27 15-50 [facility] HospitalTransferrin2019-11-13 21:22:00* Test Item Value Reference Range Interpretation Comments Transferrin (test code = 3034-6) 183 174-364 [facility] HospitalAmylase Vyrxa9816-47-31 21:22:00* Test Item Value Reference Range Interpretation Comments Amylase Level (test code = 1798-8) 68 25-125 [facility] HospitalLipase2019-11-13 21:22:00* Test Item Value Reference Range Interpretation Comments Lipase (test code = 3040-3) 14 78 [facility] HospitalIron Jqmbt0220-76-98 21:22:00* Test Item Value Reference Range Interpretation Comments Iron Level (test code = 2498-4) 69 65-175 [facility] HospitalTotal Iron Binding Aibgoudl5394-21-91 21:22:00* Test Item Value Reference Range Interpretation Comments Total Iron Binding Capacity (test code = 2500-7) 256 261-4 78 L [facility] HospitalPercent Iron Gtigdtfiko8223-22-43 21:22:00* Test Item Value Reference Range Interpretation Comments Percent Iron Saturation (test code = 2502-3) 50 [facility] HospitalTransferrin2019-11-13 21:22:00* Test Item Value Reference Range Interpretation Comments Transferrin (test code = 3034-6) 183 174-364 [facility] HospitalAmylase Qwnaw8333-48-51 21:22:00* Test Item Value Reference Range Interpretation Comments Amylase Level (test code = 1798-8) 68 25-125 [facility] HospitalLipase2019-11-13 21:22:00* Test Item Value Reference Range Interpretation Comments Lipase (test code = 3040-3) 14 [facility]2019-11-13 21:22:00* Test Item Value Reference Range Interpretation Comments Iron Level (test code = 2498-4) 69 65-175 [facility] HospitalTotal Iron Binding Spltfffz8476-35-76 21:22:00* Test Item Value Reference Range Interpretation Comments Total Iron Binding Capacity (test code = 2500-7) 256 261-4 78 L [facility]Percent Iron Esnifudssr5594-45-76 21:22:00* Test Item Value Reference Range Interpretation Comments Percent Iron Saturation (test code = 2502-3) 1550 [facility] HospitalTransferrin2019-11-13 21:22:00* Test Item Value Reference Range Interpretation Comments Transferrin (test code = 3034-6) 183 174-364 [facility] HospitalPercent Reticulocyte Hwogg3366-48-20 21:04:00* Test Item Value Reference Range Interpretation Comments Percent Reticulocyte Count (test code = 71080-7) 1.3 0.8-2 .2 [facility] HospitalPercent Reticulocyte Xbudg0331-15-88 21:04:00* Test Item Value Reference Range Interpretation Comments Percent Reticulocyte Count (test code = 01197-5) 1.3 0.8-2 .2 [facility] HospitalPercent Reticulocyte Dtidj2038-51-08 21:04:00* Test Item Value Reference Range Interpretation Comments Percent Reticulocyte Count (test code = 08065-4) 1.3 0.8-2 .2 [facility] Bxpnsnfwk7173-76-31 12:59:00* Test Item Value Reference Range Interpretation Comments Total Bilirubin (test code = 1975-2) 0.4 0.2-1.2 [facility] HospitalAspartate Amino Transf (AST/SGOT) 2019-03-14 12:59:00* Test Item Value Reference Range Interpretation Comments Aspartate Amino Transf (AST/SGOT) (test code = Aspartate Amino Transf (AST/SGOT)) 25 5-34 [facility] HospitalAlanine Aminotransferase (ALT/SGPT) 2019-03-14 12:59:00* Test Item Value Reference Range Interpretation Comments Alanine Aminotransferase (ALT/SGPT) (test code = 1742-6) 24 0-55 [facility] HospitalTotal Xwjmkgj0353-92-37 12:59:00* Test Item Value Reference Range Interpretation Comments Total Protein (test code = 2885-2) 7.2 6.5-8.1 [facility] HospitalAlbumin2019-11-12 12:59:00* Test Item Value Reference Range Interpretation Comments Albumin (test code = 1751-7) 3.5 3.5-5.0 [facility] HospitalGlobulin2019-11-12 12:59:00* Test Item Value Reference Range Interpretation Comments Globulin (test code = 11486-6) 3.7 2.3-3.5 H [facility] HospitalAlbumin/Globulin Txgrd8402-34-12 12:59:00 * Test Item Value Reference Range Interpretation Comments Albumin/Globulin Ratio (test code = 1759-0) 0.9 0.8-2.0 [facility] HospitalAlkaline Muflsosnqku8628-22-27 12:59:00* Test Item Value Reference Range Interpretation Comments Alkaline Phosphatase (test code = 6768-6) 69 40-150 [facility] HospitalTotal Afqthxodw9164-78-28 12:59:00* Test Item Value Reference Range Interpretation Comments Total Bilirubin (test code = 1975-2) 0.4 0.2-1.2 [facility] HospitalAspartate Amino Transf (AST/SGOT) 2019-03-14 12:59:00* Test Item Value Reference Range Interpretation Comments Aspartate Amino Transf (AST/SGOT) (test code = Aspartate Amino Transf (AST/SGOT)) 25 5-34 [facility] HospitalAlanine Aminotransferase (ALT/SGPT) 2019-03-14 12:59:00* Test Item Value Reference Range Interpretation Comments Alanine Aminotransferase (ALT/SGPT) (test code = 1742-6) 24 0-55 [facility] Edozwxx2958-13-43 12:59:00* Test Item Value Reference Range Interpretation Comments Total Protein (test code = 2885-2) 7.2 6.5-8.1 [facility] HospitalAlbumin2019-11-12 12:59:00* Test Item Value Reference Range Interpretation Comments Albumin (test code = 1751-7) 3.5 3.5-5.0 [facility] HospitalGlobulin2019-11-12 12:59:00* Test Item Value Reference Range Interpretation Comments Globulin (test code = 78160-7) 3.7 2.3-3.5 H [facility] HospitalAlbumin/Globulin Esznr9616-07-11 12:59:00 * Test Item Value Reference Range Interpretation Comments Albumin/Globulin Ratio (test code = 1759-0) 0.9 0.8-2.0 [facility] HospitalAlkaline Euxkazwpted4574-69-36 12:59:00* Test Item Value Reference Range Interpretation Comments Alkaline Phosphatase (test code = 6768-6) 69 40-150 [facility] HI3936-80-89 12:24:00 [facility] [address] [address] Patient Name: QUYEN KIM MR #: [id number] : 1980 Age/Sex: 38/M Req #: [id number] Adm Physician: Ordered by: WESLY SPICER DO Report #: [id number] Location: ER Room/Bed: Procedure: [id number] CT/CT ABDOMEN/PELVIS WO Exam Date: 03/14/19 Exam Time: 115 0 REPORT STATUS: Signed EXAM: CT Abdomen and Pelvis WITHOUT intravenous contrast INDICATION: Abdominal pa in COMPARISON: CT abdomen pelvis of 03/13/2019 TECHNIQUE: Abdomen and pelvis were scanned utilizing a multidetector helical scanner from the lung ba se to the pubic symphysis without administration of IV contrast. Coronal and s agittal reformations were obtained. IV CONTRAST: None ORAL CONTRAST : Water COMPLICATIONS: None RADIATION DOSE: Total DLP: 262.5 mGy*cm Dose modulation, iterative reconstruction, and/or weight based adjustment of the mA/kV was utilized to reduce the radiation dose to as low as reasonably achievable. FINDINGS: LOWER THORAX: Emphysematous changes with a right lower lobe 4.8 cm bulla. HEPATOBILIARY: No focal hepatic lesi ons. Vicarious excretion of contrast material within the gallbladder. SPL EEN: No splenomegaly. PANCREAS: No focal masses or ductal dilatation. ADRENALS: No adrenal nodules. KIDNEYS/URETERS: No hydronephrosis or hydrourete r. Unchanged 6.0 mm left lower pole renal calculus. Unchanged bilateral renal cysts. PELVIC ORGANS/BLADDER: Unremarkable. PERITONEUM / RETROPERITONEUM: No free air or fluid. LYMPH NODES: No lymphadenopathy. VESSELS: Minimal sca ttered atherosclerotic calcifications. GI TRACT: No distention or wall thic kening. BONES AND SOFT TISSUES: Unremarkable. IMPRESSION: Unchanged left lower pole nonobstructive renal calculus and bilateral renal cysts. Signed by: Stiven Dai MD on 03/14/2019 12:32 PM Dictated By: STIVEN DAI MD 1232 Transcribed By: JEANNE on 03/14/19 1232 COPY TO: WESLY SPICER DO Eosinophils % (Manual)2019-03-13 21:32:00* Test Item Value Reference Range Interpretation Comments Eosinophils % (Manual) (test code = 714-6) 3 0-7 [facility] HospitalMetamyelocytes %2019-03-13 21:32:00* Test Item Value Reference Range Interpretation Comments Metamyelocytes % (test code = 740-1) 1 0-0 H [facility] HospitalAnisocytosis2019-11-11 21:32:00* Test Item Value Reference Range Interpretation Comments Anisocytosis (test code = 702-1) SLIGHT [facility] HospitalHowell-Ambia Ztnetk2009-80-16 21:32:00* Test Item Value Reference Range Interpretation Comments Pal[place]-Ambia Bodies (test code = 7793-3) FEW [facility] HospitalEosinophils % (Manual)2019-03-13 21:32:00 * Test Item Value Reference Range Interpretation Comments Eosinophils % (Manual) (test code = 714-6) 3 0-7 [facility] HospitalMetamyelocytes %2019-03-13 21:32:00* Test Item Value Reference Range Interpretation Comments Metamyelocytes % (test code = 740-1) 1 0-[address] [facility]-11 21:32:00* Test Item Value Reference Range Interpretation Comments Anisocytosis (test code = 702-1) SLIGHT [facility] HospitalHowell-Ambia Rgxdlm4644-14-75 21:32:00* Test Item Value Reference Range Interpretation Comments Palencia-Ambia Bodies (test code = 7793-3) FEW [facility] HospitalEosinophils % (Manual)2019-03-13 21:32:00 * Test Item Value Reference Range Interpretation Comments Eosinophils % (Manual) (test code = 714-6) 3 0-7 [facility] HospitalMetamyelocytes %2019-03-13 21:32:00* Test Item Value Reference Range Interpretation Comments Metamyelocytes % (test code = 740-1) 1 0-0 H [facility] HospitalAnisocytosis2019-11-11 21:32:00* Test Item Value Reference Range Interpretation Comments Anisocytosis (test code = 702-1) SLIGHT [facility] HospitalHowell-Ambia Gufubr7197-73-92 21:32:00* Test Item Value Reference Range Interpretation Comments Palencia-Ambia Bodies (test code = 7793-3) FEW [facility] HospitalUrine AMP0525-17-08 16:21:00* Test Item Value Reference Range Interpretation Comments Urine WBC (test code = 5821-4) NONE 0-5 [facility] HospitalUrine VEE7296-72-93 16:21:00* Test Item Value Reference Range Interpretation Comments Urine RBC (test code = 11930-4) 6-10 0-5 H [facility] HospitalUrine Clyolvsx2535-07-63 16:21:00* Test Item Value Reference Range Interpretation Comments Urine Bacteria (test code = 73683-0) NONE NONE [facility] HospitalUrine Epithelial Eqbgw1617-34-97 16:21:00 * Test Item Value Reference Range Interpretation Comments Urine Epithelial Cells (test code = 36436-6) NONE NONE [facility] HospitalUrine Calcium Carbonate Crystals 2019-03-13 16:21:00* Test Item Value Reference Range Interpretation Comments Urine Calcium Carbonate Crystals (test code = 5773-7) MANY NONE H [facility] HospitalUrine IZH1057-68-48 16:21:00* Test Item Value Reference Range Interpretation Comments Urine WBC (test code = 5821-4) NONE 0-5 [facility] HospitalU[facility] UMM6392-24-84 16:21:00* Test Item Value Reference Range Interpretation Comments Urine RBC (test code = 22476-7) 6-10 0-5 H [facility] HospitalUrine Yicgjjku7398-79-77 16:21:00* Test Item Value Reference Range Interpretation Comments Urine Bacteria (test code = 69928-1) NONE NONE [facility] HospitalUrine Epithelial Rwras1885-20-96 16:21:00 * Test Item Value Reference Range Interpretation Comments Urine Epithelial Cells (test code = 42630-1) NONE NONE [facility] HospitalUrine Calcium Carbonate Crystals 2019-03-13 16:21:00* Test Item Value Reference Range Interpretation Comments Urine Calcium Carbonate Crystals (test code = 5773-7) MANY NONE H [facility] HospitalUrine [id number] 16:21:00* Test Item Value Reference Range Interpretation Comments Urine WBC (test code = 5821-4) NONE 0-5 [facility] HospitalU[facility] UDQ0852-49-38 16:21:00* Test Item Value Reference Range Interpretation Comments Urine RBC (test code = 16908-9) 6-10 0-5 H [facility] HospitalUrine Aymtkexs2233-07-34 16:21:00* Test Item Value Reference Range Interpretation Comments Urine Bacteria (test code = 05791-4) NONE NONE [facility] HospitalUrine Epithelial Hescw8271-53-76 16:21:00 * Test Item Value Reference Range Interpretation Comments Urine Epithelial Cells (test code = 56842-2) NONE NONE [facility] HospitalUrine Calcium Carbonate Crystals 2019-03-13 16:21:00* Test Item Value Reference Range Interpretation Comments Urine Calcium Carbonate Crystals (test code = 5773-7) MANY NONE H [facility] HospitalUrine Calcium Carbonate Crystals 2019-03-13 16:21:00* Test Item Value Reference Range Interpretation Comments Urine Calcium Carbonate Crystals (test code = 5773-7) MANY NONE H [facility] HospitalCT [facility]EN[facility]PELVIS [id number] 16:17:00 [facility] [address] [address] Patient Name: QUYEN KIM MR #: [id number] : 1980 Age/Sex: 38/M Req #: [id number] [facility] Physician: Ordered by: PAULINE DAMON MD, MD Report #: [id number] Location: ER Room/Bed: Procedure: [id number] C T/CT ABDOMEN/PELVIS W Exam Date: 03/13/19 Exam Time: 1538 REPORT STATUS: Signed CT of the abdomen and pelvis, without contrast, 03/13/2019. H istory: Epigastric pain, vomiting. Comparison: None available. Techniq ue: Multidetector CT scanning of the abdomen and pelvis was performed from the level of the lung bases to the inferior pubic rami without intravenous contra st. Patient was unable to tolerate oral contrast. Coronal and sagittal multipl hazel reformations were obtained. RADIATION DOSE: Total DLP: 304 mGy* cm Dose modulation, iterative reconstruction, and/or weight based adjustm ent of the mA/kV was utilized to reduce the radiation dose to as low as reason ably achievable. Discussion: Examination is limited without contrast. Lung bases: Right lower lobe bulla is present. Abdomen: A 6 mm stone is pre sent in the lower pole of the left kidney. Several round hypodense lesions are present within the left kidney measuring up to 1.4 cm, ranging from 15-20 [place] nsfield units in density. Additional subcentimeter hypodensities are present i n both kidneys which are too small to characterize. The liver, gallbladder, bi liary tree, spleen, pancreas, adrenal glands, and kidneys are unremarkable. T he abdominal aorta is within normal limits. A circumaortic left renal vein is present. Evaluation of bowel is limited without oral contrast. There is no bowel dilatation. Questionable mild diffuse wall thickening versus nondistent ion of the descending and sigmoid colon. Scattered nonspecific subcentimeter mesenteric nodes are present. There is no evidence of adenopathy or free fluid. Pelvis: The bladder, prostate, and seminal vesicles are unremarkable. There is no evidence of free fluid or adenopathy. Bones and soft tissues : Degenerative changes are present throughout the lumbar spine without evidenc e of lytic or sclerotic lesion. IMPRESSION: 1. Nonobstructing subce ntimeter left renal calculus. 2. Possible hyperdense left renal cysts. These m ay be further evaluated with renal ultrasound. 3. Possible thickening of th e distal colon which may represent infectious/inflammatory colitis. No evidenc e of perforation or abscess. Signed by: Wesly Solorio on 03/13/2019 4 :27 PM Dictated By: WESLY SOLORIO MD 26 Transcribed By: JEANNE on 03/13/191626 COPY TO : PAULINE DAMON Urine Opiates Avrlbc1288-56-54 16:13:00* Test Item Value Reference Range Interpretation Comments Urine Opiates Screen (test code = 94836-1) POSITIVE NEGATIVE H ALL TESTS PERFORMED MANUALLY ON Combat Stroke TOX/SEE TEST This test provides only a sc reen. Positive results should be repeated by a confirmatory test.[facility] HospitalUrine Barbiturates Sdkkjh5591-23-50 16:13:00* Test Item Value Reference Range Interpretation Comments Urine Barbiturates Screen (test code = 830575172) NEGATIVE NEGA TIVE [facility] HospitalUrine Phencyclidine Atjthx4581-57-47 16:13:00* Test Item Value Reference Range Interpretation Comments Urine Phencyclidine Screen (test code = 29977-3) NEGATIVE NEGAT ANGY [facility] HospitalU[facility] Amphetamines Pyahzm3625-90-97 16:13:00* Test Item Value Reference Range Interpretation Comments Urine Amphetamines Screen (test code = 64086-4) NEGATIVE NEGATI VE [facility] HospitalU[facility] Methamphetamines Ecwvoj7773-65-23 16:13:00* Test Item Value Reference Range Interpretation Comments Urine Methamphetamines Screen (test code = Urine Metha mphetamines Screen) NEGATIVE NEGATIVE [facility] HospitalU[facility] Benzodiazepines Tlliat0385-11-61 16:13:00* Test Item Value Reference Range Interpretation Comments Urine Benzodiazepines Screen (test code = 20438-0) NEGATIVE NEG ATIVE [facility] HospitalUrine Cocaine Sizbrw6298-67-15 16:13:00* Test Item Value Reference Range Interpretation Comments Urine Cocaine Screen (test code = 3398-5) NEGATIVE NEGATIVE [facility] HospitalUrine Cannabinoids Vbevjs6897-19-89 16:13:00* Test Item Value Reference Range Interpretation Comments Urine Cannabinoids Screen (test code = 11749-7) POSITIVE NEGATI VE H THESE RESULTS ARE FOR MEDICAL TREATMENT ONLYTHIS REPORT CONTAINS UNCONFIR MED SCREENING RESULTS*POSITIVE RESULTS WILL BE CONFIRMED BY REFERENCE LAB UPON R EQUEST CUT-OFFDRUG CLASS CONCENTRATION ng/mLAmphetamines 1000Methamphetamines 1000Cocaine 300Opiate 300Phencyc lidine 25Cannabinoid 50Barbiturates 300Benzodiazepine 300Methadone 300 This test p rovides only a screen. Positive results should be repeated by a confirmatory jourdan t.[facility] HospitalUrine Methadone Twakbo9911-57-19 16:13:00* Test Item Value Reference Range Interpretation Comments Urine Methadone Screen (test code = 12939-7) NEGATIVE NEGATIVE THESE RESULTS ARE FOR MEDICAL TREATMENT ONLYTHIS REPORT CONTAINS UNCONFIR MED SCREENING RESULTS*POSITIVE RESULTS WILL BE CONFIRMED BY REFERENCE LAB UPON R EQUEST CUT-OFFDRUG CLASS CONCENTRATION ng/mLAmphetamines 1000Methamphetamines 1000Cocaine Metabolite 300Opiate 300Phencyc lidine 25Cannabinoid 50Barbiturates 300Benzodiazepine 300Methadone 300[facility] HospitalUrine Opiates Qcusmg5985-12-48 16:13:00* Test Item Value Reference Range Interpretation Comments Urine Opiates Screen (test code = 06791-0) POSITIVE NEGATIVE H ALL TESTS PERFORMED MANUALLY ON Combat Stroke TOX/SEE TEST This test provides only a sc reen. Positive results should be repeated by a confirmatory test.[facility] HospitalUrine Barbiturates Oilwkz5920-59-19 16:13:00* Test Item Value Reference Range Interpretation Comments Urine Barbiturates Screen (test code = 301643391) NEGATIVE NEGA TIVE [facility] HospitalUrine Phencyclidine Numetw4655-74-90 16:13:00* Test Item Value Reference Range Interpretation Comments Urine Phencyclidine Screen (test code = 46214-5) NEGATIVE NEGAT ANGY [facility] HospitalUrine Amphetamines Xvwrdm6534-19-40 16:13:00* Test Item Value Reference Range Interpretation Comments Urine Amphetamines Screen (test code = 18747-2) NEGATIVE NEGATI VE [facility] HospitalUrine Methamphetamines Fddbha2786-34-66 16:13:00* Test Item Value Reference Range Interpretation Comments Urine Methamphetamines Screen (test code = Urine Metha mphetamines Screen) NEGATIVE NEGATIVE [facility] HospitalU[facility] Benzodiazepines Vjpyks7188-41-33 16:13:00* Test Item Value Reference Range Interpretation Comments Urine Benzodiazepines Screen (test code = 77091-5) NEGATIVE NEG ATIVE [facility] HospitalUrine Cocaine Lomnkn5217-25-66 16:13:00* Test Item Value Reference Range Interpretation Comments Urine Cocaine Screen (test code = 3398-5) NEGATIVE NEGATIVE [facility] HospitalUrine Cannabinoids Aziqym9766-02-29 16:13:00* Test Item Value Reference Range Interpretation Comments Urine Cannabinoids Screen (test code = 47767-9) POSITIVE NEGATI VE H THESE RESULTS ARE FOR MEDICAL TREATMENT ONLYTHIS REPORT CONTAINS UNCONFIR MED SCREENING RESULTS*POSITIVE RESULTS WILL BE CONFIRMED BY REFERENCE LAB UPON R EQUEST CUT-OFFDRUG CLASS CONCENTRATION ng/mLAmphetamines 1000Methamphetamines 1000Cocaine 300Opiate 300Phencyc lidine 25Cannabinoid 50Barbiturates 300Benzodiazepine 300Methadone 300 This test p rovides only a screen. Positive results should be repeated by a confirmatory jourdan t.[facility] HospitalUrine Methadone Jumkzg4251-23-75 16:13:00* Test Item Value Reference Range Interpretation Comments Urine Methadone Screen (test code = 47665-0) NEGATIVE NEGATIVE THESE RESULTS ARE FOR MEDICAL TREATMENT ONLYTHIS REPORT CONTAINS UNCONFIR MED SCREENING RESULTS*POSITIVE RESULTS WILL BE CONFIRMED BY REFERENCE LAB UPON R EQUEST CUT-OFFDRUG CLASS CONCENTRATION ng/mLAmphetamines 1000Methamphetamines 1000Cocaine Metabolite 300Opiate 300Phencyc lidine 25Cannabinoid 50Barbiturates 300Benzodiazepine 300Methadone 300[facility] Fiucbb0930-71-74 16:13:00* Test Item Value Reference Range Interpretation Comments Urine Opiates Screen (test code = 22805-3) POSITIVE NEGATIVE H ALL TESTS PERFORMED MANUALLY ON Combat Stroke TOX/SEE TEST This test provides only a sc reen. Positive results should be repeated by a confirmatory test.[facility] HospitalUrine Barbiturates Hzoecj0825-69-42 16:13:00* Test Item Value Reference Range Interpretation Comments Urine Barbiturates Screen (test code = 252703699) NEGATIVE NEGA TIVE [facility] HospitalUrine Phencyclidine Idfmnb3708-01-17 16:13:00* Test Item Value Reference Range Interpretation Comments Urine Phencyclidine Screen (test code = 47704-9) NEGATIVE NEGAT ANGY [facility] HospitalUrine Amphetamines Vggoip8353-12-54 16:13:00* Test Item Value Reference Range Interpretation Comments Urine Amphetamines Screen (test code = 09541-2) NEGATIVE NEGATI VE [facility] HospitalUrine Methamphetamines Nfjddv8031-16-00 16:13:00* Test Item Value Reference Range Interpretation Comments Urine Methamphetamines Screen (test code = Urine Metha mphetamines Screen) NEGATIVE NEGATIVE [facility] HospitalUrine Benzodiazepines Umqxku2846-54-65 16:13:00* Test Item Value Reference Range Interpretation Comments Urine Benzodiazepines Screen (test code = 71616-4) NEGATIVE NEG ATIVE [facility] Cocaine Vafdcf0008-66-16 16:13:00* Test Item Value Reference Range Interpretation Comments Urine Cocaine Screen (test code = 3398-5) NEGATIVE NEGATIVE [facility] Cannabinoids Fzexvl6655-92-82 16:13:00* Test Item Value Reference Range Interpretation Comments Urine Cannabinoids Screen (test code = 34474-4) POSITIVE NEGATI VE H THESE RESULTS ARE FOR MEDICAL TREATMENT ONLYTHIS REPORT CONTAINS UNCONFIR MED SCREENING RESULTS*POSITIVE RESULTS WILL BE CONFIRMED BY REFERENCE LAB UPON R EQUEST CUT-OFFDRUG CLASS CONCENTRATION ng/mLAmphetamines 1000Methamphetamines 1000Cocaine 300Opiate 300Phencyc lidine 25Cannabinoid 50Barbiturates 300Benzodiazepine 300Methadone 300 This test p rovides only a screen. Positive results should be repeated by a confirmatory jourdan t.[facility] Hospital[facility] Methadone Vkekgh0401-65-95 16:13:00* Test Item Value Reference Range Interpretation Comments Urine Methadone Screen (test code = 74894-2) NEGATIVE NEGATIVE THESE RESULTS ARE FOR MEDICAL TREATMENT ONLYTHIS REPORT CONTAINS UNCONFIR MED SCREENING RESULTS*POSITIVE RESULTS WILL BE CONFIRMED BY REFERENCE LAB UPON R EQUEST CUT-OFFDRUG CLASS CONCENTRATION ng/mLAmphetamines 1000Methamphetamines 1000Cocaine Metabolite 300Opiate 300Phencyc lidine 25Cannabinoid 50Barbiturates 300Benzodiazepine 300Methadone 300[facility] Egouh6464-71-98 16:12:00* Test Item Value Reference Range Interpretation Comments Urine Color (test code = 5778-6) YELLOW YELLOW [facility] Imqybxk6349-65-05 16:12:00* Test Item Value Reference Range Interpretation Comments Urine Clarity (test code = 35715-0) SL CLOUDY CLEAR H [facility] HospitalU[facility] Specific Iqavjwg2390-91-74 16:12:00 * Test Item Value Reference Range Interpretation Comments Urine Specific [place] (test code = 5811-5) 1.025 1.010-1.02 5 [facility] mF1022-62-01 16:12:00* Test Item Value Reference Range Interpretation Comments Urine pH (test code = 28878-0) 6 5-7 [facility] Leukocyte Hghstauf0759-34-03 16:12:00* Test Item Value Reference Range Interpretation Comments Urine Leukocyte Esterase (test code = 41432-8) NEGATIVE NEGATIV E [facility] Uilwytm7112-57-96 16:12:00* Test Item Value Reference Range Interpretation Comments Urine Nitrite (test code = 38640-7) NEGATIVE NEGATIVE [facility] Bbcpsps5653-82-36 16:12:00* Test Item Value Reference Range Interpretation Comments Urine Protein (test code = 53510-2) TRACE NEGATIVE H [facility] HospitalUrine Glucose (UA)2019-03-13 16:12:00* Test Item Value Reference Range Interpretation Comments Urine Glucose (UA) (test code = 38710-5) NEGATIVE NEGATIVE [facility] Uycimtz4437-70-33 16:12:00* Test Item Value Reference Range Interpretation Comments Urine Ketones (test code = 83721-0) TRACE NEGATIVE H [facility] Jarhlwyypfds7623-71-34 16:12:00* Test Item Value Reference Range Interpretation Comments Urine Urobilinogen (test code = 17872-3) 1 0.2-1 [facility] Hklvbbudt8226-28-13 16:12:00* Test Item Value Reference Range Interpretation Comments Urine Bilirubin (test code = 1977-8) SMALL NEGATIVE [facility] Tnedk8239-52-57 16:12:00* Test Item Value Reference Range Interpretation Comments Urine Blood (test code = 85653-7) 1+ NEGATIVE [facility] Whqml9184-22-39 16:12:00* Test Item Value Reference Range Interpretation Comments Urine Color (test code = 5778-6) YELLOW YELLOW [facility] Vpnvkfo9544-07-82 16:12:00* Test Item Value Reference Range Interpretation Comments Urine Clarity (test code = 28858-9) SL CLOUDY CLEAR H [facility] HospitalU[facility] Specific Cqlgjws4039-82-73 16:12:00 * Test Item Value Reference Range Interpretation Comments Urine Specific [place] (test code = 5811-5) 1.025 1.010-1.02 5 [facility] HospitalU[facility] zX2614-83-54 16:12:00* Test Item Value Reference Range Interpretation Comments Urine pH (test code = 78425-2) 6 5-7 [facility] Leukocyte Pbkgflog2240-31-23 16:12:00* Test Item Value Reference Range Interpretation Comments Urine Leukocyte Esterase (test code = 99961-3) NEGATIVE NEGATIV E [facility] Oxldcto4601-96-09 16:12:00* Test Item Value Reference Range Interpretation Comments Urine Nitrite (test code = 72562-5) NEGATIVE NEGATIVE [facility] Tyjorwm1862-62-85 16:12:00* Test Item Value Reference Range Interpretation Comments Urine Protein (test code = 80035-9) TRACE NEGATIVE H [facility] HospitalU[facility] Glucose (UA)2019-03-13 16:12:00* Test Item Value Reference Range Interpretation Comments Urine Glucose (UA) (test code = 78011-7) NEGATIVE NEGATIVE [facility] Oxsuicf4378-31-40 16:12:00* Test Item Value Reference Range Interpretation Comments Urine Ketones (test code = 18251-9) TRACE NEGATIVE H [facility] Opujccmiuqnc7746-83-86 16:12:00* Test Item Value Reference Range Interpretation Comments Urine Urobilinogen (test code = 43302-6) 1 0.2-1 [facility] Mwfhghhdk8828-97-18 16:12:00* Test Item Value Reference Range Interpretation Comments Urine Bilirubin (test code = 1977-8) SMALL NEGATIVE [facility] Zokbb3755-51-79 16:12:00* Test Item Value Reference Range Interpretation Comments Urine Blood (test code = 67994-9) 1+ NEGATIVE [facility] Cckop2383-01-97 16:12:00* Test Item Value Reference Range Interpretation Comments Urine Color (test code = 5778-6) YELLOW YELLOW [facility] Yvsemgp6584-87-70 16:12:00* Test Item Value Reference Range Interpretation Comments Urine Clarity (test code = 69407-7) SL CLOUDY CLEAR H [facility] HospitalU[facility] Specific Akydjpy9606-12-24 16:12:00 * Test Item Value Reference Range Interpretation Comments Urine Specific [place] (test code = 5811-5) 1.025 1.010-1.02 5 [facility] HospitalU[facility] uV0456-39-46 16:12:00* Test Item Value Reference Range Interpretation Comments Urine pH (test code = 85225-7) 6 5-7 [facility] Leukocyte Unxktpae9450-99-94 16:12:00* Test Item Value Reference Range Interpretation Comments Urine Leukocyte Esterase (test code = 34732-8) NEGATIVE NEGATIV E [facility] Kriwuyk3087-78-79 16:12:00* Test Item Value Reference Range Interpretation Comments Urine Nitrite (test code = 73618-6) NEGATIVE NEGATIVE [facility] Bpdjqrk8830-94-83 16:12:00* Test Item Value Reference Range Interpretation Comments Urine Protein (test code = 40373-5) TRACE NEGATIVE H [facility] HospitalU[facility] Glucose (UA)2019-03-13 16:12:00* Test Item Value Reference Range Interpretation Comments Urine Glucose (UA) (test code = 28685-0) NEGATIVE NEGATIVE [facility] Lzwpdcn5820-58-16 16:12:00* Test Item Value Reference Range Interpretation Comments Urine Ketones (test code = 25950-6) TRACE NEGATIVE H [facility] Zvdbaomcqhxk5550-28-83 16:12:00* Test Item Value Reference Range Interpretation Comments Urine Urobilinogen (test code = 21368-6) 1 0.2-1 [facility] Ypjehzpeh2772-39-78 16:12:00* Test Item Value Reference Range Interpretation Comments Urine Bilirubin (test code = 1977-8) SMALL NEGATIVE [facility] Qbjlh1116-27-76 16:12:00* Test Item Value Reference Range Interpretation Comments Urine Blood (test code = 81428-1) 1+ NEGATIVE [facility] HospitalAcetaminophen Acxjj9302-84-71 15:04:00* Test Item Value Reference Range Interpretation Comments Acetaminophen Level (test code = 62460-1) < 3 10-30 L [facility] HospitalEthyl Alcohol Kceap2336-83-03 15:04:00* Test Item Value Reference Range Interpretation Comments Ethyl Alcohol Level (test code = 5643-2) < 10.0 0.0-10.0 [facility] Ytiox8829-29-35 15:04:00* Test Item Value Reference Range Interpretation Comments Salicylates Level (test code = 4024-6) < 5.0 0-30 [facility] HospitalAcetaminophen Ipkdw5666-33-06 15:04:00* Test Item Value Reference Range Interpretation Comments Acetaminophen Level (test code = 99857-7) < 3 10-30 L [facility] HospitalEthyl Alcohol Lbqqk5950-91-49 15:04:00* Test Item Value Reference Range Interpretation Comments Ethyl Alcohol Level (test code = 5643-2) < 10.0 0.0-10.0 [facility] Vehiv8920-31-16 15:04:00* Test Item Value Reference Range Interpretation Comments Salicylates Level (test code = 4024-6) < 5.0 0-30 [facility] HospitalAcetaminophen Htaxd9046-74-85 15:04:00* Test Item Value Reference Range Interpretation Comments Acetaminophen Level (test code = 63605-2) < 3 10-30 L [facility] HospitalEthyl Alcohol Fgtqy8608-81-49 15:04:00* Test Item Value Reference Range Interpretation Comments Ethyl Alcohol Level (test code = 5643-2) < 10.0 0.0-10.0 [facility] Adctj5555-74-14 15:04:00* Test Item Value Reference Range Interpretation Comments Salicylates Level (test code = 4024-6) < 5.0 0-30 [facility] HospitalAcetaminophen Devwq3118-08-99 15:04:00* Test Item Value Reference Range Interpretation Comments Acetaminophen Level (test code = 33186-3) < 3 10-30 L [facility] HospitalEthyl Alcohol Bsccc5463-94-05 15:04:00* Test Item Value Reference Range Interpretation Comments Ethyl Alcohol Level (test code = 5643-2) < 10.0 0.0-10.0 [facility] Mjsty3659-34-57 15:04:00* Test Item Value Reference Range Interpretation Comments Salicylates Level (test code = 4024-6) < 5.0 0-30 [facility] HospitalCHES SINGLE (PORTABLE)2019-03-13 14:46:00 [facility] [address] [address] Patient Name: QUYEN KIM MR #: [id number] : 1980 Age/Sex: 38/M Req #: [id number] Adm Physician: Ordered by: PAULINE DAMON MD, MD Report #: [id number] Location: ER Room/Bed: Procedure: [id number] D X/CHEST SINGLE (PORTABLE) Exam Date: 03/13/19 Exam T boris: 1410 REPORT STATUS: Signed Chest, 1 view, 03/13/2019. History: Abdominal pain and vomiting. Comparison: None available. Findings: The cardiomediastinal silhouette a nd pulmonary vasculature are within normal limits for a portable exam. There i s no focal consolidation or pleural effusion. There are no acute osseous or s oft tissue abnormalities. Impression: No acute cardiopulmonary abnormal ity. Signed by: Wesly Solorio on 03/13/2019 2:46 PM Dictated By: DERIAN SOLORIO MD 1446 Spicer scribed By: JEANNE on 03/13/19 1446 COPY TO: PAULINE DAMON Sodium Rfkup1526-41-88 14:43:00* Test Item Value Reference Range Interpretation Comments Sodium Level (test code = 2951-2) 136 136-145 [facility] HospitalPotassium Bqvyy2316-76-11 14:43:00* Test Item Value Reference Range Interpretation Comments Potassium Level (test code = 2823-3) 3.6 3.5-5.1 [facility] HospitalChloride Brmps9646-48-03 14:43:00* Test Item Value Reference Range Interpretation Comments Chloride Level (test code = 2075-0) 103 98-107 [facility] HospitalCarbon Dioxide Tufoq0712-55-19 14:43:00* Test Item Value Reference Range Interpretation Comments Carbon Dioxide Level (test code = 2028-9) 23 22-29 [facility] HospitalAnion Gpu5211-54-39 14:43:00* Test Item Value Reference Range Interpretation Comments Anion Gap (test code = 55501-5) 13.6 8-16 [facility] HospitalBlood Urea Gklmewys8485-14-37 14:43:00* Test Item Value Reference Range Interpretation Comments Blood Urea Nitrogen (test code = 3094-0) 10 7-26 [facility] HospitalCreatinine2019-11-11 14:43:00* Test Item Value Reference Range Interpretation Comments Creatinine (test code = 2160-0) 1.48 0.72-1.25 H [facility] HospitalBUN/Creatinine Ewpef7468-25-63 14:43:00* Test Item Value Reference Range Interpretation Comments BUN/Creatinine Ratio (test code = 3097-3) 7 6- [facility] HospitalEstimat Glomerular Filtration Rate 2019-03-13 14:43:00* Test Item Value Reference Range Interpretation Comments Estimat Glomerular Filtration Rate (test code = 955871132) > 60 >60 Ranges were taken from the National Kidney Disease Education Program and the Mary count includes the [facility] Kidney Foundation literature.Reference ranges:60 or greater: Mdtvlv61-68 ( for 3 consecutive months): Chronic kidney disease 15 or less: Kidney failureTexas Orthopedic HospitalGlucose Phuub5020-43-24 14:43:00* Test Item Value Reference Range Interpretation Comments Glucose Level (test code = WYA7793) 84 74-118 [facility] HospitalCalcium Zikhm5576-57-20 14:43:00* Test Item Value Reference Range Interpretation Comments Calcium Level (test code = 25921-5) 9.5 8.4-10.2 [facility] HospitalMagnesium Zdkdp0476-12-87 14:43:00* Test Item Value Reference Range Interpretation Comments Magnesium Level (test code = 97290-7) 1.7 1.3-2.1 [facility] HospitalTotal Itnoxxndh9258-27-96 14:43:00* Test Item Value Reference Range Interpretation Comments Total Bilirubin (test code = 1975-2) 0.4 0.2-1.2 [facility] HospitalAspartate Amino Transf (AST/SGOT) 2019-03-13 14:43:00* Test Item Value Reference Range Interpretation Comments Aspartate Amino Transf (AST/SGOT) (test code = Aspartate Amino Transf (AST/SGOT)) 26 5-34 [facility] HospitalAlanine Aminotransferase (ALT/SGPT) 2019-03-13 14:43:00* Test Item Value Reference Range Interpretation Comments Alanine Aminotransferase (ALT/SGPT) (test code = 1742-6) 31 0-55 [facility] HospitalTotal Hflvotk2791-92-73 14:43:00* Test Item Value Reference Range Interpretation Comments Total Protein (test code = 2885-2) 7.7 6.5-8.1 [facility] HospitalAlbumin2019-11-11 14:43:00* Test Item Value Reference Range Interpretation Comments Albumin (test code = 1751-7) 3.8 3.5-5.0 [facility] HospitalGlobulin2019-11-11 14:43:00* Test Item Value Reference Range Interpretation Comments Globulin (test code = 47962-4) 3.9 2.3-3.5 H [facility] HospitalAlbumin/Globulin Xiuao5021-06-27 14:43:00 * Test Item Value Reference Range Interpretation Comments Albumin/Globulin Ratio (test code = 1759-0) 1.0 0.8-2.0 [facility] HospitalAlkaline Yuumagzakpr0939-89-61 14:43:00* Test Item Value Reference Range Interpretation Comments Alkaline Phosphatase (test code = 6768-6) 75 40-150 [facility] HospitalLipase2019-11-11 14:43:00* Test Item Value Reference Range Interpretation Comments Lipase (test code = 3040-3) 12 8-78 [facility] HospitalMagnesium Xdwdb0546-70-73 14:43:00* Test Item Value Reference Range Interpretation Comments Magnesium Level (test code = 96350-8) 1.7 1.3-2.1 [facility] HospitalMagnesium Fjwkj3592-15-14 14:43:00* Test Item Value Reference Range Interpretation Comments Magnesium Level (test code = 52421-9) 1.7 1.3-2.1 [facility] HospitalWhite Blood Hqhcp6416-37-73 14:22:00* Test Item Value Reference Range Interpretation Comments White Blood Count (test code = 6690-2) 3.05 4.8-10.8 L [facility] HospitalRed Blood Jlwzm4846-97-34 14:22:00* Test Item Value Reference Range Interpretation Comments Red Blood Count (test code = 789-8) 3.51 4.3-5.7 L [facility] HospitalHemoglobin2019-11-11 14:22:00* Test Item Value Reference Range Interpretation Comments Hemoglobin (test code = 19021-4) 11.5 14.0-18.0 L [facility] HospitalHematocrit2019-11-11 14:22:00* Test Item Value Reference Range Interpretation Comments Hematocrit (test code = 4544-3) 33.3 38.2-49.6 L [facility] HospitalMean Corpuscular Qpshwf4953-28-07 14:22:00* Test Item Value Reference Range Interpretation Comments Mean Corpuscular Volume (test code = 787-2) 94.9 81-99 [facility] HospitalMean Corpuscular Jkffinjqpi1874-21-05 14:22:00* Test Item Value Reference Range Interpretation Comments Mean Corpuscular Hemoglobin (test code = 785-6) 32.8 28-32 H [facility] HospitalMean Corpuscular Hemoglobin Concent 2019-03-13 14:22:00* Test Item Value Reference Range Interpretation Comments Mean Corpuscular Hemoglobin Concent (test code = 786-4) 34.5 31-35 [facility] HospitalRed Cell Distribution Qyusr4519-68-55 14:22:00* Test Item Value Reference Range Interpretation Comments Red Cell Distribution Width (test code = 37857-6) 11.7 11.7 -14.4 [facility] HospitalPlatelet Ucibm6928-57-44 14:22:00* Test Item Value Reference Range Interpretation Comments Platelet Count (test code = 777-3) 189 140-360 [facility] HospitalNeutrophils (%) (Auto)2019-03-13 14:22:00 * Test Item Value Reference Range Interpretation Comments Neutrophils (%) (Auto) (test code = 49604-2) 53.1 38.7-80.0 [facility] HospitalLymphocytes (%) (Auto)2019-03-13 14:22:00 * Test Item Value Reference Range Interpretation Comments Lymphocytes (%) (Auto) (test code = 736-9) 33.1 18.0-39.1 [facility] HospitalMonocytes (%) (Auto)2019-03-13 14:22:00* Test Item Value Reference Range Interpretation Comments Monocytes (%) (Auto) (test code = 5905-5) 10.8 4.4-11.3 [facility] HospitalEosinophils (%) (Auto)2019-03-13 14:22:00 * Test Item Value Reference Range Interpretation Comments Eosinophils (%) (Auto) (test code = 713-8) 2.0 0.0-6.0 [facility] HospitalBasophils (%) (Auto)2019-03-13 14:22:00* Test Item Value Reference Range Interpretation Comments Basophils (%) (Auto) (test code = 706-2) 0.3 0.0-1.0 [facility] HospitalIM GRANULOCYTES %2019-03-13 14:22:00* Test Item Value Reference Range Interpretation Comments IM GRANULOCYTES % (test code = IM GRANULOCYTES %) 0.7 0.0- 1.0 [facility] HospitalNeutrophils # (Auto)2019-03-13 14:22:00* Test Item Value Reference Range Interpretation Comments Neutrophils # (Auto) (test code = 751-8) 1.6 2.1-6.9 L [facility] HospitalLymphocytes # (Auto)2019-03-13 14:22:00* Test Item Value Reference Range Interpretation Comments Lymphocytes # (Auto) (test code = 75119-5) 1.0 1.0-3.2 [facility] HospitalMonocytes # (Auto)2019-03-13 14:22:00* Test Item Value Reference Range Interpretation Comments Monocytes # (Auto) (test code = 742-7) 0.3 0.2-0.8 [facility] HospitalEosinophils # (Auto)2019-03-13 14:22:00* Test Item Value Reference Range Interpretation Comments Eosinophils # (Auto) (test code = 711-2) 0.1 0.0-0.4 [facility] HospitalBasophils # (Auto)2019-03-13 14:22:00* Test Item Value Reference Range Interpretation Comments Basophils # (Auto) (test code = 704-7) 0.0 0.0-0.1 [facility] HospitalAbsolute Immature Granulocyte (auto 2019-03-13 14:22:00* Test Item Value Reference Range Interpretation Comments Absolute Immature Granulocyte (auto (jourdan t code = Absolute Immature Granulocyte (auto) 0.02 0-0.1 [facility]- DUP AB/PEL/SC UIKC5573-00-47 11:31:00 Name: QUYEN KIM [facility] : 1980 Age/S: 38 / M [address] [facility] Unit #: [id number] Loc: [place] [address] Phys: Freddie Lira MD Acct: [id number] Di s Date: Status: REG ER PHONE #: Exam Date: 02/28/2019 1117 FAX #: [phone] Reason: scrotal pain EXAMS: CPT CODE: [id number] DUP AB/PEL/SC COMP 30113 REASON FOR EXAM: testicul ar pain, vomiting EXAM ORDER DATE: 02/28/2019 8:52 AM Attending Annetta: Kyra Lira MD PROCEDURE: - US SCROTUM A ND CNTS, - DUP AB/PEL/SC COMP Technique: Duplex scan was performe d using grayscale imaging as well as color Doppler and spectral Doppler im aging of the testicles and epididymides. FINDINGS: Right Testicle: Size: 4.5 x 1.6 x 2.6 cm Parenchyma: Normal ho mogenous echogenicity Masses/calcifications: Testicular microliths are pre sent. Flow: Normal blow is seen Right Epididymis: Size : 3.2 x 0.5 x 0.7 cm Masses: None Left Testicle: Size: 3.8 x 1.7 x 2.4 cm Parenchyma: Normal homogenous echogenicity Juventino s/calcifications: None Flow: Normal blow is seen Left Epidid ymis: Size: 2.6 x 0.3 x 0.7 cm Masses: None Hydrocele: Present bilaterally Varicocele: None Scrotal wall: Normal. No edema or mass. IMPRESSION: Right testicular microlithiasis. According to the Society of Urogeni mert Radiology (ESUR), annual ultrasound follow-up until age 55 is recomm ended, if one of the following risk factor are present: PAGE 1 Signed Report (CONTINUED) Name: QUYEN KIM [facility] : 1980 Age/S: 38 / M [address] [facility]: [id number] Loc: [place] [address] Phys: Kyra Lira MD Acct: [id number] Dis Date: atus: ER PHONE #: [phone] Exam Theodore e: 02/28/2019 1110 FAX #: [phone] Reason: scrotal pain EXAMS: CPT CODE: [id number] DUP AB/PEL/SC COMP 57230 <Continued> personal/family history of germ cell tumour maldescent orchidopexy testicular atrophy No evidence of torsion or orchitis. at 1131 Reported and signed by: Alli Felipe MD CC: Kyra Lira MD Technologist: ARNULFO COATS RT(R),SRINIVASA Trnscb Date/Time: 02/28/2019 (1131) [id number] PAGE 2 Signed Report - US SCROTUM AND GNKL0103-14-72 11:31:00 Name: QUYEN KIM [facility] : 1980 Age/S: 38 / M [address] Unit #: [id number] Loc: [place] [address] Phys: Kyra Lira MD Acct: [id number] Dis Date: Status: REG ER PHONE #: [phone] Exam Date: 02/28/2019 1110 FAX #: [phone] Reason: testicular pain, vomiting EXAMS: CPT CODE: [id number] US SCROTUM AND CNTS 84236 REASON FOR EXAM: testicular pain, vomiting EXAM [...] PAGE 1 Signed Report (CONTINUED) Name: QUYEN KIM [facility] : 1980 Age/S: 38 / M [address] Unit #: [id number] Loc: [place] [address] Phys: Kyra Lira MD Acct: [id number] Dis Date: Status: REG ER PHONE #: [phone] Exam Date: 02/28/2019 1110 FAX #: [phone] Reason: testicular pain, vomiting EXAMS: CPT CODE: [id number] US SCROTUM AND CNTS 56582 <Continued> personal/family history of germ cell tumour maldescent orchidopexy testicular atrophy No evidence of torsion or orchitis. at 1131 Reported and signed by: Alli Felipe MD CC: Kyra Lira MD Technologist: ARNULFO COATS RT(R),RDMS Trnscb Date/Time: 02/28/2019 (113) t.[email or web address] Orig Print D/T: S: 02/28/2019 (3326) Probe: PAGE 2 Signed Report DRUGS OF ABUSE SCREEN TK8714-05-10 10:46:00* Test Item Value Reference Range Interpretation Comments UA PH DIPSTICK (test code = SP) 6.0 5.0-8.0 URN COCAINE (test code = COCAURN) NEGATIVE <300 ng/mL URN CANNABINOIDS (test code = CANNABURN) POSITIVE <50 ng/mL A This test provides only a preliminary test [...] (e.g., employment testing, legaltesting). URN AMPHETAMINE (test code = AMPHETURN) NEGATIVE <1000 ng/mL URN BARBITURATE (test code = BARBITURN) NEGATIVE <200 ng/mL URN BENZODIAZEPINE (test code = BENZOURN) NEGATIVE <200 ng/mL URN OPIATES (test code = OPIATURN) POSITIVE <300 ng/mL A This test provides only a preliminary test [...] employment testing, legaltesting). URN PHENCYCLIDINE (PCP) (test code = PHENCURN) NEGATIVE <25 ng/ mL URN METHADONE (test code = METHAURN) NEGATIVE <300 ng/mL ADD ON AT 1002URINALYSIS KKJWTCOM9163-71-86 10:32:00* Test Item Value Reference Range Interpretation Comments UA COLOR (test code = COLU) YELLOW YELLOW UA APPEARANCE (test code = APPU) CLEAR CLEAR UA GLUCOSE DIPSTICK (test code = DGLUU) NEGATIVE mg/dL NEGATIVE UA BILIRUBIN DIPSTICK (test code = BILU) NEGATIVE mg/dL NEGATIVE UA KETONE DIPSTICK (test code = KETU) NEGATIVE mg/dL NEGATIVE UA SPECIFIC GRAVITY (test code = SGU) 1.025 1.001-1.035 UA BLOOD DIPSTICK (test code = MARIEL) 0.2 mg/dL (2+) mg/dL NEGATIVE A UA PH DIPSTICK (test code = SP) 6.0 5.0-8.0 UA PROTEIN DIPSTICK (test code = PROU) 30 (1+) mg/dL NEGATIVE A UA UROBILINIOGEN DIPSTICK (test code = URO) 2.0 (1+) mg/dL NEGATIVE A UA NITRITE DIPSTICK (test code = NANCY) NEGATIVE NEGATIVE UA LEUKOCYTE ESTERASE W REFLEX (test code = LEUUR) NEGATIVE Liset/uL NEGATIVE UA WBC (test code = WBCU) 0-5 per HPF 0-5 UA RBC (test code = RBCU) 21-50 #/HPF 0-5 UA EPITHELIAL CELLS (test code = EPIU) FEW per HPF FEW UA BACTERIA (test code = BACU) FEW #/HPF NONE A UA HYALINE CAST (test code = HYALU) 0-2 #/LPF 0-5 UA MUCUS (test code = MUCU) FEW #/LPF FEW Urine Source? Clean CatchDRUGS OF ABUSE SCREEN [id number] 10:32:00* Test Item Value Reference Range Interpretation Comments UA PH DIPSTICK (test code = SP) 6.0 5.0-8.0 URN COCAINE (test code = COCAURN) <300 ng/mL URN CANNABINOIDS (test code = CANNABURN) <50 ng/mL URN AMPHETAMINE (test code = AMPHETURN) <1000 ng/mL URN BARBITURATE (test code = BARBITURN) <200 ng/mL URN BENZODIAZEPINE (test code = BENZOURN) <200 ng/mL URN OPIATES (test code = OPIATURN) <300 ng/mL URN PHENCYCLIDINE (PCP) (test code = PHENCURN) <25 ng/ mL URN METHADONE (test code = METHAURN) <300 ng/mL ADD ON AT [address] [place] [address] W/O [id number] 10:13:00* Test Item Value Reference Range Interpretation Comments WHITE BLOOD CELL (test code = WBC) 8.5 K/mm3 4.5-12.5 N RED BLOOD CELL (test code = RBC) 4.13 mill/mm3 4.0-5.8 N HEMOGLOBIN (test code = HGB) 13.7 gram/dL 13.0-17.5 N HEMATOCRIT (test code = HCT) 40.4 % 42.0-52.0 L MEAN CELL VOLUME (test code = MCV) 97.8 fL 80-98 N MEAN CELL HGB (test code = MCH) 33.2 picogram 27.0-33.0 H MEAN CELL HGB CONCETRATION (test code = MCHC) 33.9 gram/dL 33.0-36. 0 N RED CELL DISTRIBUTION WIDTH (test code = RDW) 12.0 % 11.6-16. 2 N PLATELET COUNT (test code = PLT) 188 K/mm3 150-450 N MEAN PLATELET VOLUME (test code = MPV) 11.4 fL 6.7-11.0 H BASIC METABOLIC [id number] 10:10:00* Test Item Value Reference Range Interpretation Comments SODIUM (test code = NA) 144 mmol/L 136-145 N POTASSIUM (test code = K) 3.4 mmol/L 3.5-5.1 L CHLORIDE (test code = CL) 110.0 mmol/L 98-107 H CARBON DIOXIDE (test code = CO2) 20.0 mmol/L 21-32 L ANION GAP (test code = GAP) 17.4 10-20 N GLUCOSE (test code = GLU) 141 mg/dL 74-106 H BLOOD UREA NITROGEN (test code = BUN) 12 mg/dL 7-18 N GLOMERULAR FILTRATION RATE (test code = GFR) 51 mL/min >=60 Estimated GFR by using Modified MDRD formula.Chronic kidney disease is defined as either kidney damageor GFR <60 mL/min/1.73 m2 for >3 months. CREATININE (test code = CREAT) 1.80 mg/dL 0.7-1.3 H BUN/CREATININE RATIO (test code = BUN/CREA) 6.9 10-20 L CALCIUM (test code = CA) 9.8 mg/dL 8.5-10.1 N HEPATIC FUNCTION [id number] 10:10:00* Test Item Value Reference Range Interpretation Comments TOTAL PROTEIN (test code = PROT) 8.6 gram/dL 6.4-8.2 H ALBUMIN (test code = ALB) 4.4 g/dL 3.4-5.0 N GLOBULIN (test code = GLOB) 4.2 gram/dL 2.7-4.2 N ALBUMIN/GLOBULIN RATIO (test code = A/G) 1.0 0.75-1.50 N BILIRUBIN TOTAL (test code = BILT) 0.60 mg/dL 0.0-1.0 N BILIRUBIN DIRECT (test code = BILD) 0.15 mg/dL 0.0-0.20 N SGOT/AST (test code = AST) 17 IUnit/L 15-37 N SGPT/ALT (test code = ALT) 19 IUnit/L 12-78 N ALKALINE PHOSPHATASE TOTAL (test code = ALKP) 97 IUnit/L 45-117 N Note change in reference range due to change in reagent. [id number] 10:10:00* Test Item Value Reference Range Interpretation Comments LIPASE (test code = LIP) 123 U/L 73.0-393.0 N [id number] 10:10:00* Test Item Value Reference Range Interpretation Comments TROPONIN-I (test code = TROPI) <0.015 ng/mL 0-0.045 N BASIC METABOLIC [id number] 09:58:00* Test Item Value Reference Range Interpretation Comments SODIUM (test code = NA) 144 mmol/L 136-145 N POTASSIUM (test code = K) 3.4 mmol/L 3.5-5.1 L CHLORIDE (test code = CL) 110.0 mmol/L 98-107 H CARBON DIOXIDE (test code = CO2) mmol/L 21-32 ANION GAP (test code = GAP) 10-20 GLUCOSE (test code = GLU) mg/dL 74-106 BLOOD UREA NITROGEN (test code = BUN) mg/dL 7-18 GLOMERULAR FILTRATION RATE (test code = GFR) mL/min >=60 CREATININE (test code = CREAT) mg/dL 0.7-1.3 BUN/CREATININE RATIO (test code = BUN/CREA) 10-20 CALCIUM (test code = CA) mg/dL 8.5-10.1 HEPATIC FUNCTION [id number] 09:58:00* Test Item Value Reference Range Interpretation Comments TOTAL PROTEIN (test code = PROT) gram/dL 6.4-8.2 ALBUMIN (test code = ALB) g/dL 3.4-5.0 GLOBULIN (test code = GLOB) gram/dL 2.7-4.2 ALBUMIN/GLOBULIN RATIO (test code = A/G) 0.75-1.50 BILIRUBIN TOTAL (test code = BILT) mg/dL 0.0-1.0 BILIRUBIN DIRECT (test code = BILD) mg/dL 0.0-0.20 SGOT/AST (test code = AST) IUnit/L 15-37 SGPT/ALT (test code = ALT) IUnit/L 12-78 ALKALINE PHOSPHATASE TOTAL (test code = ALKP) IUnit/L 45-117 [id number] 09:58:00* Test Item Value Reference Range Interpretation Comments LIPASE (test code = LIP) U/L 73.0-393.0 [id number] 09:58:00* Test Item Value Reference Range Interpretation Comments TROPONIN-I (test code = TROPI) ng/mL 0-0.045 - CT ABD PELVIS W/O [id number] 09:34:00 Name: QUYEN KIM [facility] : 1980 Age/S: 38 / M [address] [facility] Unit #: [id number] Loc: [place] [address] Phys: Kyra Lira MD Acct: [id number] Dis Date: Status: REG ER PHONE #: [phone] Exam Date: 02/28/2019 0905 FAX #: [phone] Reason: LLQ ttp, vomiting EXAMS: CPT CODE: [id number] CT ABD PELVIS W/O CONT [id number] REASON FOR EXAM: LLQ ttp, vomiting EXAM [...] PAGE 1 Signed Re port (CONTINUED) Name: QUYEN KIM [facility] : 1980 Age/S: 38 / M [address] Unit #: [id number] Loc: [place] [address] Phys: Kyra Lira MD Acct: [id number] Dis Date: Status: REG ER PHONE #: [phone] Exam Date: 02/28/2019 09 FAX #: [phone] Reason: LLQ ttp, vomiting EXAMS: CPT CODE: [id number] CT ABD PELVIS W/O CONT 43970 <Continued> Abdominal vascular structures: Circumaortic left renal [...] the left lower abdomen. Location: [facility] at 0934 Reported and signed by: Alli Felipe MD CC: Kyra Lira MD Technologist:Radames Chang RT(R),(MR),(CT) CTDI: DLP: Trnscb Date/Time: 02/28/2019 (0934) [email or web address] Orig Print D/T: S: 02/28/2019 (1922) PAGE 2 Signed Report - CT ABD PELVIS W/O [id number] 16:32:00 Name: QUYEN KIM [facility] : 1980 Age/S: 38 / M [address] [facility] Unit #: [id number] [place] [address] Phys: Trudy Benjamin NP Acct: [id number] Dis Date: Status: REG ER PHONE #: [phone] Exam Date: 02/24/2019 1430 FAX #: [phone] Reason: abdominal pain EXAMS: CPT CODE: [id number] CT ABD PELVIS W/O CONT 46054 REASON FOR EXAM: abdominal pain EXAM ORDER DATE: 02/24/2019 2:18 PM Ordering M.DCorey: Trudy Benjamin NP PROCEDURE: - CT ABD [...] PAGE 1 Signed Report (CONTINUED) Name: QUYEN KIM [facility] : 1980 Age/S: 38 / M [address] [facility] Unit #: [id number] Loc: [place] [address] Phys: Trudy Benjamin NP Acct: [id number] Dis Date: Status: REG ER PHONE #: [phone] Exam Date: 02/24/2019 1430 FAX #: [phone] Reason: abdominal pain EXAMS: CPT CODE: [id number] CT ABD PELVIS W/O CONT 33738 < Continued> grossly normal Peritoneum and retroperitoneum: [...] Correlate with physical exam. Location: [facility] at 1632 Reported and signed by: Alli Felipe MD CC: Trudy Benjamin NP; Melyssa Ramirez DO Technologist:Pavel Maciel RT(R) CTDI: DLP: Trnscb Date/Time: 02/24/2019 (1632) [email or web address] Orig Print D/T: S: 02/24/2019 (5885) PAGE 2 Signed Report DRUGS OF ABUSE SCREEN UR 2019-02-24 16:19:00* Test Item Value Reference Range Interpretation Comments UA PH DIPSTICK (test code = SP) 7.0 5.0-8.0 URN COCAINE (test code = COCAURN) NEGATIVE <300 ng/mL URN CANNABINOIDS (test code = CANNABURN) POSITIVE <50 ng/mL A This test provides only a preliminary test [...] (e.g., employment testing, legaltesting). URN AMPHETAMINE (test code = AMPHETURN) NEGATIVE <1000 ng/mL URN BARBITURATE (test code = BARBITURN) NEGATIVE <200 ng/mL URN BENZODIAZEPINE (test code = BENZOURN) NEGATIVE <200 ng/mL URN OPIATES (test code = OPIATURN) POSITIVE <300 ng/mL A This test provides only a preliminary test [...] employment testing, legaltesting). URN PHENCYCLIDINE (PCP) (test code = PHENCURN) NEGATIVE <25 ng/ mL URN METHADONE (test code = METHAURN) NEGATIVE <300 ng/mL DRUGS OF ABUSE SCREEN [id number] 16:07:00* Test Item Value Reference Range Interpretation Comments UA PH DIPSTICK (test code = SP) 5.0-8.0 URN COCAINE (test code = COCAURN) NEGATIVE <300 ng/mL URN CANNABINOIDS (test code = CANNABURN) POSITIVE <50 ng/mL A This test provides only a preliminary test [...] (e.g., employment testing, legaltesting). URN AMPHETAMINE (test code = AMPHETURN) NEGATIVE <1000 ng/mL URN BARBITURATE (test code = BARBITURN) NEGATIVE <200 ng/mL URN BENZODIAZEPINE (test code = BENZOURN) NEGATIVE <200 ng/mL URN OPIATES (test code = OPIATURN) POSITIVE <300 ng/mL A This test provides only a preliminary test [...] employment testing, legaltesting). URN PHENCYCLIDINE (PCP) (test code = PHENCURN) NEGATIVE <25 ng/ mL URN METHADONE (test code = METHAURN) NEGATIVE <300 ng/mL URINALYSIS [id number] 15:47:00* Test Item Value Reference Range Interpretation Comments UA COLOR (test code = COLU) YELLOW YELLOW UA APPEARANCE (test code = APPU) Cloudy CLEAR A UA GLUCOSE DIPSTICK (test code = DGLUU) NEGATIVE mg/dL NEGATIVE UA BILIRUBIN DIPSTICK (test code = BILU) NEGATIVE mg/dL NEGATIVE UA KETONE DIPSTICK (test code = KETU) 20 (1+) mg/dL NEGATIVE A UA SPECIFIC GRAVITY (test code = SGU) 1.024 1.001-1.035 UA BLOOD DIPSTICK (test code = MARIEL) 0.03 mg/dL (Trace) mg/dL NEGATI VE A UA PH DIPSTICK (test code = SP) 7.0 5.0-8.0 UA PROTEIN DIPSTICK (test code = PROU) 50 (1+) mg/dL NEGATIVE A UA UROBILINIOGEN DIPSTICK (test code = URO) 2.0 (1+) mg/dL NEGATIVE A UA NITRITE DIPSTICK (test code = NANCY) NEGATIVE NEGATIVE UA LEUKOCYTE ESTERASE W REFLEX (test code = LEUUR) NEGATIVE Liset/uL NEGATIVE UA WBC (test code = WBCU) 0-5 per HPF 0-5 UA RBC (test code = RBCU) 11-20 #/HPF 0-5 A UA EPITHELIAL CELLS (test code = EPIU) Rare (0-1/hpf) per HPF FEW UA BACTERIA (test code = BACU) FEW #/HPF NONE A UA CALCIUM OXALATE CRYSTALS (test code = CAOXU) FEW #/HPF NONE A UA MUCUS (test code = MUCU) MANY #/LPF FEW A Urine Source? Clean CatchBASIC METABOLIC [id number] 14:12:00* Test Item Value Reference Range Interpretation Comments SODIUM (test code = NA) 147 mmol/L 136-145 H POTASSIUM (test code = K) 3.7 mmol/L 3.5-5.1 N CHLORIDE (test code = CL) 112.0 mmol/L 98-107 H CARBON DIOXIDE (test code = CO2) 24.0 mmol/L 21-32 N ANION GAP (test code = GAP) 14.7 10-20 N GLUCOSE (test code = GLU) 104 mg/dL 74-106 N BLOOD UREA NITROGEN (test code = BUN) 13 mg/dL 7-18 N GLOMERULAR FILTRATION RATE (test code = GFR) 54 mL/min >=60 Estimated GFR by using Modified MDRD formula.Chronic kidney disease is defined as either kidney damageor GFR <60 mL/min/1.73 m2 for >3 months. CREATININE (test code = CREAT) 1.70 mg/dL 0.7-1.3 H BUN/CREATININE RATIO (test code = BUN/CREA) 7.6 10-20 L CALCIUM (test code = CA) 9.9 mg/dL 8.5-10.1 N HEPATIC FUNCTION [id number] 14:12:00* Test Item Value Reference Range Interpretation Comments TOTAL PROTEIN (test code = PROT) 9.5 gram/dL 6.4-8.2 H ALBUMIN (test code = ALB) 4.6 g/dL 3.4-5.0 N GLOBULIN (test code = GLOB) 4.9 gram/dL 2.7-4.2 H ALBUMIN/GLOBULIN RATIO (test code = A/G) 0.9 0.75-1.50 N BILIRUBIN TOTAL (test code = BILT) 0.50 mg/dL 0.0-1.0 N BILIRUBIN DIRECT (test code = BILD) 0.13 mg/dL 0.0-0.20 N SGOT/AST (test code = AST) 15 IUnit/L 15-37 N SGPT/ALT (test code = ALT) 24 IUnit/L 12-78 N ALKALINE PHOSPHATASE TOTAL (test code = ALKP) 104 IUnit/L 45-117 N Note change in reference range due to change in reagent. [id number] 14:12:00* Test Item Value Reference Range Interpretation Comments LIPASE (test code = LIP) 80 U/L 73.0-393.0 N BASIC METABOLIC [id number] 14:00:00* Test Item Value Reference Range Interpretation Comments SODIUM (test code = NA) 147 mmol/L 136-145 H POTASSIUM (test code = K) 3.7 mmol/L 3.5-5.1 N CHLORIDE (test code = CL) 112.0 mmol/L 98-107 H CARBON DIOXIDE (test code = CO2) mmol/L 21-32 ANION GAP (test code = GAP) 10-20 GLUCOSE (test code = GLU) mg/dL 74-106 BLOOD UREA NITROGEN (test code = BUN) mg/dL 7-18 GLOMERULAR FILTRATION RATE (test code = GFR) mL/min >=60 CREATININE (test code = CREAT) mg/dL 0.7-1.3 BUN/CREATININE RATIO (test code = BUN/CREA) 10-20 CALCIUM (test code = CA) mg/dL 8.5-10.1 HEPATIC FUNCTION [id number] 14:00:00* Test Item Value Reference Range Interpretation Comments TOTAL PROTEIN (test code = PROT) gram/dL 6.4-8.2 ALBUMIN (test code = ALB) g/dL 3.4-5.0 GLOBULIN (test code = GLOB) gram/dL 2.7-4.2 ALBUMIN/GLOBULIN RATIO (test code = A/G) 0.75-1.50 BILIRUBIN TOTAL (test code = BILT) mg/dL 0.0-1.0 BILIRUBIN DIRECT (test code = BILD) mg/dL 0.0-0.20 SGOT/AST (test code = AST) IUnit/L 15-37 SGPT/ALT (test code = ALT) IUnit/L 12-78 ALKALINE PHOSPHATASE TOTAL (test code = ALKP) IUnit/L 45-117 [id number] 14:00:00* Test Item Value Reference Range Interpretation Comments LIPASE (test code = LIP) U/L 73.0-393.0 CBC W/O [id number] 13:50:00* Test Item Value Reference Range Interpretation Comments WHITE BLOOD CELL (test code = WBC) 13.2 K/mm3 4.5-12.5 H RED BLOOD CELL (test code = RBC) 4.08 mill/mm3 4.0-5.8 N HEMOGLOBIN (test code = HGB) 13.3 gram/dL 13.0-17.5 N HEMATOCRIT (test code = HCT) 40.0 % 42.0-52.0 L MEAN CELL VOLUME (test code = MCV) 98.0 fL 80-98 N MEAN CELL HGB (test code = MCH) 32.6 picogram 27.0-33.0 N MEAN CELL HGB CONCETRATION (test code = MCHC) 33.3 gram/dL 33.0-36. 0 N RED CELL DISTRIBUTION WIDTH (test code = RDW) 11.9 % 11.6-16. 2 N PLATELET COUNT (test code = PLT) 218 K/mm3 150-450 N MEAN PLATELET VOLUME (test code = MPV) 10.4 fL 6.7-11.0 N CBC W/O [id number] 13:49:00* Test Item Value Reference Range Interpretation Comments WHITE BLOOD CELL (test code = WBC) K/mm3 4.5-12.5 RED BLOOD CELL (test code = RBC) mill/mm3 4.0-5.8 HEMOGLOBIN (test code = HGB) 13.3 gram/dL 13.0-17.5 N HEMATOCRIT (test code = HCT) % 42.0-52.0 MEAN CELL VOLUME (test code = MCV) fL 80-98 MEAN CELL HGB (test code = MCH) picogram 27.0-33.0 MEAN CELL HGB CONCETRATION (test code = MCHC) gram/dL 33.0-36. 0 RED CELL DISTRIBUTION WIDTH (test code = RDW) % 11.6-16. 2 PLATELET COUNT (test code = PLT) K/mm3 150-450 MEAN PLATELET VOLUME (test code = MPV) fL 6.7-11.0
--- OUTSIDE RECORDS SUMMARY | 2019-12-14 08:38 | XMS REPORT ---
Author Author Vimal Johnson ence Organization Unknown Address Unknown Phone Unavailable Care Team Providers Care Wildlife Biology Technician Name Role Phone Nii Montero Unavailable PROBLEMS Condition Status Date Provider Notes Anemia active Seven Lyons Dietary surveillance and counseling active Seven Lyons Agoraphobia w/o hx of Panic Disorder active Edwin Oakes Wallace Chronic post-traumatic stress disorder active 8 Edwin Oakes Wallace Insomnia active Edwin Oakes Wallace High risk medication management active Edwin Oakes Wallace HIV infection active Edwin Oakes Wallace Cannabis dependence in remission active Edwin Oakes Wallace Borderline personality disorder active Edwin Oakes Wallace Bipolar Disorder NOS active Edwin basurto Wallace Hyperopia - OU active Henry Cisneros ENCOUNTERS Date Type Provider Location Encounter Diagn osis - Ambulatory Encounter Kathy Pepe UNK - Ambulatory Encounter Yumiko Latham UNK - Ambulatory Encounter Seven Lyons [facility] UNK - Ambulatory Encounter Yumiko Arnold-Isidro UNK - Ambulatory Encounter Seven Flower UNK - Ambulatory Encounter Seven Flower UNK - Ambulatory Encounter Seven Pepe Dietary surveillance and cou nselingAnemia - Ambulatory Encounter Kathy Pepe UNK - Ambulatory Encounter Edwin Rober to Oakes Wallaceurmila Oakes Wallace [facility] UNK - Ambulatory Encounter Edwin Rober to Oakes Wallaceurmila Oakes Wallace [facility] UNK - Ambulatory Encounter Edwinbea Hale to Oakes Wallaceurmila Oakes Wallace UNK - Ambulatory Encounter Edwin Hale to Oakes Wallaceurmila Oakes Wallaceurmila Madrigalroquin Bipolar Disorder NOSBorderline personality disorderCannabis dependence in remissionHIV infectionHigh risk medication managementInsomniaChronic post-traumatic stress disorderAgoraphobia w/o hx of Panic Disorder - Ambulatory Encounter Madelaine Coello K - Ambulatory Encounter Kathy Afshin K - Ambulatory Encounter Seven Flower K - Ambulatory Encounter Seven jose K - Ambulatory Encounter Rochelle Ennis K - Ambulatory Encounter Jazmin Lopez K - Ambulatory Encounter Rochelle Ennis K - Ambulatory Encounter Henry ragueta K - Ambulatory Encounter Henry argueta K - Ambulatory Encounter Henry argueta K - Ambulatory Encounter Henry Mustafa Hyperopia - OU VITAL SIGNS Date Observation Value Provider weight E&M 165.25 lbs. Seven Lyons " weight in kilograms E&M 75.11 kg Seven Gilliam " height E&M 79 [in_i] Kathy Pepe " height in centimeters E&M 200.66 cm Seven delgado method used to obtain blood pressure automatic Amelai Baker " Blood Pressure Position 01 sitting Promise Baker " blood pressure, site #1 left arm Amelia madrigal " blood pressure, diastolic 76 mm[Hg] Amelia Baker " blood pressure, systolic 119 mm[Hg] Amelia Baker " pulse rate 90 /min Amelia Baker " weight E&M 169.38 lbs. Amelia Baker " weight in kilograms E&M 76.99 kg Amelia madrigal " height E&M 79 [in_i] Amelia Baker " height in centimeters E&M 200.66 cm Amelia Baker ALLERGIES Allergy Name Onset Date Reaction Criticality Status ASPIRIN High Criticality active REASON FOR REFERRAL No Information Available RESULTS No Information Available HISTORY OF IMMUNIZATIONS No Information Available HISTORY OF MEDICATION USE Medication Instructions Dates Provider Comments DICYCLOMINE HCL 10 MG ORAL CAPSULE Seven delgado PREZCOBIX 800-150 MG ORAL TABLET 1 tab by mouth daily with food Seven Lyons FLUOXETINE HCL 20 MG ORAL CAPSULE Take 1 capsule by or al route daily in the morning Edwin Wallace OLANZAPINE 10 MG ORAL TABLET Take 1 tablet by oral route cary ly at bed time Edwin Wallace BACTRIM TABLET Rochelle Ennis TRUVADA TABLET - Seven Lyons NORVIR TABLET - Seven Lyons DESCOVY 200-25 MG ORAL TABLET Rochelle trammell SOCIAL HISTORY Date Observation Value Provider time of call 2019 2:28 PM Yumiko bowling time of call 08/11/2019 9:03 AM Yumiko bowling social history reviewed E&M reviewed today Ankur Wallace " social history E&M since 15 yea rs. Spouse/Partner/Significant Other: Anita Kim . Not homeless. [facility]. City: [place]. State: [place]. Not employed. [employer]. Highest education level: Some college-3 years. - Social Security disability x HIV infection Sex at : Male. Sexual orientation: Heterosexual. Sexually Active: Yes. Edwin Wallace " drug use, illicit Previously Edwin Wallace " alcohol use Never Edwin Wallace " smoking status never smoker Edwin Wallace " sexual orientation Heterosexual Edwin Rober to Champ Wallace " sex at Male Edwin Wallace " Occupation #1 [employer] Edwin Wallace " patient considered to be homeless No Edwin Wallace FUNCTIONAL STATUS No Information Available MENTAL STATUS Date Observation Value Provider anxiety worry a lot, sleep d isturbance, restlessness, irritability, phobias, panic attacks, muscle tension Edwin Wallace " affect (mental status exam) congruent, constrict ed, anxious, blunted Edwin Wallace " mood (mental status exam) anxious, depressed, sa d Edwin Wallace " behavior (mental status exam) appropriat e, cooperative, poor eye contact, polite, responsive Edwin Wallace " mental status assessment, judgment good Edwin Wallace " insight (mental status exam) fair Edu bea Wallace " Mental Status Exam: intelligence adequat e fund of information, intact memory processes, oriented to person, oriented to place, oriented to time, oriented to situation, oriented to reality Edwin Wallace " hallucinations denied auditory, command or vis ual hallucinations Edwin Wallace " thought content (mental status exam) (E& M) No delusional thinking, no obsessions, no paranoid/ referential ideations Edwin Wallace " mental status assessment, process able to abstra ct, goal-directed, logical Edwin Wallace " mental status assessment, sensorium alert, atten tive, clear Edwin Daveiz " mental status assessment, speech activit y normal flow, normal pace, normal pressure, normal rate, normal tone, normal volume, spontaneous Edwinbea Benjamin Champ Wallace " mental status assessment, motor activity normal gait, normal posture Edwin Benjamin Champ Wallace " mental appearance (mental status exam) a dequate hygiene, appropriate dress, looks like stated age, neat, very slim Edwin Benjamin Champ Wallace MEDICAL EQUIPMENT No Information Available FAMILY HISTORY No Information Available INSURANCE PROVIDERS Payer name Policy type / Coverage type Covered part y ID Sliding Fee - Cat 1 Commercial insurance company [id number] Alin White 0- 100% Other [id number] Alin White 0- 100% Other Sliding Fee - Cat 1 Commercial insurance company [id number] *Alin White 0-100% Other [id number] *Alin White 0-100% Other Sliding Fee Scale Commercial insurance company None Alin White up to 300% Other [id number] ADVANCE DIRECTIVES No Information Available TREATMENT PLAN Date Name - Nutrition Initial Assessment Ind (15 Min) - 63875 Diagnostic evaluation with jgical - 07007 Dispensing Visit (UNLIVSTED OPHTHALMOLOGICAL SERVICE/PROCEDURE) Sphere, SV, plano to plus or minus 4.00, per lens Frames, purchases New Patient Intermediate Opt h - 98931 HISTORY OF PROCEDURES Procedure Date Procedure Name Provider Procedure Notes Status Diagnostic evaluation with [facility] - [phone] 92 Edwin Benjamin Champ Wallace completed Dispensing Visit (UNLIVSTED OPHTHALMOLOG ICAL SERVICE/PROCEDURE) Rochelle Ennis completed Sphere, SV, plano to plus or minus 4.00, per lens Nathan Ennis completed Frames, purchases Rochelle Ennis Frame #[id number] complet ed New Patient Intermediate Opth - 17954 Henry Cisneros completed GOALS No Information Available HEALTH CONCERNS No Information Available
[2019-12-14 10:10] LABS: AMPHETAMINES SCREEN,URINE NEGATIVE (NEGATIVE); BENZODIAZEPINES SCREEN,URINE NEGATIVE (NEGATIVE); PHENCYCLIDINE SCREEN,URINE NEGATIVE (NEGATIVE)
--- NOTE | 2019-12-14 10:13 | Diagnostic Imaging Report ---
EXAMINATION: CT of the abdomen and pelvis with contrast. TECHNIQUE: Helical CT images of the abdomen and pelvis were performed from the lung bases to the lesser trochanters after the intravenous administration of 150 cc of Isovue 300 and the oral administration of none. Coronal and sagittal reformatted images were obtained. Dose modulation, iterative reconstruction, and/or weight based adjustment of the mA/kV was utilized to reduce the radiation dose to as low as reasonably achievable. COMPARISON: 04/04/2019 CLINICAL HISTORY:Abdominal pain, nausea and vomiting. DISCUSSION: ABDOMEN/PELVIS: LOWER THORAX:5 cm bulla in the right lower lung. No pneumonia. HEPATOBILIARY: 3 enhancing foci in the left hepatic lobe, largest 1.2 cm image 27, likely flash filling hemangioma. Appear present on prior CT, however due to differences in phase not well visualized. No intra-or extrahepatic biliary ductal dilation. The gallbladder is normal. SPLEEN: No splenomegaly. PANCREAS: No focal masses or ductal dilatation. ADRENALS: No adrenal nodules. KIDNEYS/URETERS: No obstruction. Bilateral renal cysts. No solid masses. Stable 6 mm left renal calculus. PELVIC ORGANS/BLADDER: The bladder is normal. PERITONEUM/RETROPERITONEUM: No free air or fluid. LYMPH NODES: No intra-abdominal, retroperitoneal, pelvic or inguinal lymphadenopathy. VESSELS: The celiac trunk,superior and inferior mesenteric and bilateral renal arteries are patent The portal, superior mesenteric and splenic veins are patent. GI TRACT: No distention or wall thickening. BONES AND SOFT TISSUE: No bony destructive lesions. Bone island in the left iliac bone. Degenerative disease L5-S1. IMPRESSION: No acute CT finding. Stable nonobstructing 6 mm left renal calculus. Signed by: Dr. Nahum Rodriguez M.D. on 12/14/2019 10:10 AM
[2019-12-14] MEDS ORDERED: SODIUM CHLORIDE 0.9% 50ML 50 ML ONE (10:21)
[2019-12-14] MEDS ORDERED: IOPAMIDOL 370 MG/ML 200 ML INFUS..BTL INJ ONE (10:21)
[2019-12-14 10:22] LABS: CLARITY,URINE SL CLOUDY (CLEAR); COLOR,URINE ORANGE (YELLOW); LEUKOCYTE ESTERASE ,URINE NEGATIVE (NEGATIVE)
[2019-12-14 10:23] LABS: BILIRUBIN,URINE SMALL (NEGATIVE); KETONES,URINE 2+ (NEGATIVE); NITRITE,URINE NEGATIVE (NEGATIVE); PROTEIN,URINE DIPSTICK 2+ (NEGATIVE); URINE UROBILINOGEN 0.2 mg/dL (0.2 - 1)
[2019-12-14 10:34] LABS: BACTERIA,URINE RARE /HPF; EPITHELIAL CELLS,URINE FEW /LPF
[2019-12-14] MEDS ORDERED: PANTOPRAZOLE SO40 MG PO (10:35)
[2019-12-14] MEDS ORDERED: ZOFRAN4 MG SL (10:35)
[2019-12-14] MEDS ORDERED: BENTYL10 MG/1 ML PO (10:35)
[2019-12-15] MEDS ORDERED: COMPAZINE25 MG PO (23:24)
== END 2019-12-14 11:10 | disposition home or self-care (01) ==
LOC: ER 08:05
DX: R10.33 Periumbilical pain (principal); R11.2 Nausea with vomiting, unspecified; K58.9 Irritable bowel syndrome, unspecified; F12.90 Cannabis use, unspecified, uncomplicated; F14.10 Cocaine abuse, uncomplicated; F17.210 Nicotine dependence, cigarettes, uncomplicated
CPT/HCPCS: 36415; 74177; 80053; 80307; 81001; 82550; 82553; 83690; 84484; 85025; 99284; C9113; J0500; J1885; J2270; J2405; J7030; Q9967

== ENCOUNTER 2019-12-15 20:08 | Emergency (ER) | payer OTHER ==
[~2019-12-15] VITALS: Ht 185.4 cm; Wt 79.4 kg
[~2019-12-15 20:08] MED LIST changes: +BENTYL10 MG/1 ML PO; +PANTOPRAZOLE SO40 MG PO; +ZOFRAN4 MG SL
[2019-12-15] MEDS ORDERED: CAPSAICIN 0.025% CREAM TP STA (20:25)
[2019-12-15] MEDS ORDERED: ONDANSETRON HCL INJ 2MG/ML 2ML 2 MG/ML VIAL IV PRN (20:30)
[2019-12-15] MEDS ORDERED: SODIUM CHLORIDE 0.9% 1000ML 1,000 ML IV SCH (20:30)
--- NOTE | 2019-12-15 20:37 | Emergency Department Note ---
History of Present Illnes History of Present Illness Chief Complaint: Abdominal Complaints History of Present Illness This is a 39 year old male Chief Complaint Comment pt c/o nausea, vomiting and abdominal pain onset 3 days ago, pt states that he was diagnosed with colitis 3 days ago and pain has not gotten better. Endorses smoking 3 blunts a day. recently seen in the ED and had CT which was unremarkable. no other associated symptoms. Historian: Patient Arrival Mode: Car Test Preparer Required: No Onset (how long ago): day(s) (3) Location: abdomen Quality: nausea, vomiting Radiation: Reports non-radiation Severity: severe Onset quality: gradual Duration (how long): day(s) (3) Timing of current episode: constant Progression: worsening Chronicity: new Context: Reports recent illness Relieving factors: none Exacerbating factors: none Associated symptoms: Reports denies other symptoms Treatments prior to arrival: none Past Medical/Family History Physician Review I have reviewed the patient's past medical and family history. Any updates have been documented here. 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 Other Last Tetanus: UTD Review of Systems Review of Systems Constitutional: Reports no symptoms EENTM: Reports no symptoms Cardiovascular: Reports no symptoms Respiratory: Reports no symptoms Gastrointestinal: Reports as per HPI, Reports nausea, Reports vomiting Genitourinary: Reports no symptoms Musculoskeletal: Reports no symptoms Integumentary: Reports no symptoms Neurological: Reports no symptoms Psychological: Reports no symptoms Endocrine: Reports no symptoms Hematological/Lymphatic: Reports no symptoms Physical Exam Related Data Allergies: Coded Allergies: No Known Drug Allergies (Verified Allergy, Unknown, 03/16/19) Triage Vital Signs Vital Signs Date Time Temp Pulse Resp B/P (MAP) Pulse Ox O2 Delivery O2 Flow Rate FiO2 12/15/19 20:19 98.2 79 22 170/101 99 Room Air Vital signs reviewed: Yes Physical Exam CONSTITUTIONAL Constitutional: Present well-developed, Present well-nourished, Present distre ssed HENT HENT: Present normocephalic, Present atraumatic, Present oropharynx clear/moist, Present nose normal HENT L/R: Present left ext ear normal, Present right ext ear normal EYES Eyes: Reports PERRL, Reports conjunctivae normal NECK Neck: Present ROM normal PULMONARY Pulmonary: Present effort normal, Present breath sounds normal CARDIOVASCULAR Cardiovascular: Present regular rhythm, Present heart sounds normal, Present capillary refill normal, Present normal rate GASTROINTESTINAL Abdominal: Present soft, Present nontender, Present bowel sounds normal GENITOURINARY Genitourinary: Present exam deferred SKIN Skin: Present warm, Present dry MUSCULOSKELETAL Musculoskeletal: Present ROM normal NEUROLOGICAL Neurological: Present alert, Present oriented x 3, Present no gross motor or sensory deficits PSYCHOLOGICAL Psychological: Present mood/affect normal, Present judgement normal Assessment & Plan Medical Decision Making MDM 39-year-old male with a past medical history of HIV well-controlled on antiretrovirals. He states his last CD4 count was normal. Patient states he was seen recently and diagnosed with colitis after CT scan. He continues to have emesis. He was given 4 mg of IM Haldol which largely resolved symptoms. Laboratory workup is largely unremarkable. Diagnosis fevers THC hyperemesis syndrome as he states he smokes THC daily. Symptoms largely improved after haldol 4mg IM. patient would like to be discharged. Re-examined and he is appropriate for discharge. Reassessment Reassessment time: 22:56 Reassessment Well appearing, NAD Assessment & Plan Final Impression: (1) Cannabinoid hyperemesis syndrome Depart Disposition: HOME, SELF-CARE Last Vital Signs Date Time Temp Pulse Resp B/P (MAP) Pulse Ox O2 Delivery O2 Flow Rate FiO2 12/15/19 20:19 98.2 79 22 170/101 99 Room Air Home Meds Active Scripts Prochlorperazine (Compazine) 25 Mg Supp.rect, 10 MG PO DAILY for 10 Days, #10 CAP Prov:NITIN DUBON MD 12/15/19 Pantoprazole Sodium* (PROTONIX) 40 Mg Tablet.dr, 40 MG PO DAILY, #14 TAB Prov:GEOVANI MONROY, 12/14/19 Dicyclomine Hcl (BENTYL) 10 Mg/1 Ml Ampul, 20 MG PO QID, #20 VIAL Prov:GEOVANI MONROY, 12/14/19 Ondansetron Hcl* (ZOFRAN*) 4 Mg Tablet, 4 MG SL Q6H PRN for NAUSEA, #14 MG 0 Refills Prov:GEOVANI MONROY DO 12/14/19 Reported Medications Dicyclomine Hcl (BENTYL) 10 Mg/1 Ml Ampul, 20 MG IV QID, VIAL 04/04/19 Metronidazole (FLAGYL) 500 Mg Tablet, 500 MG PO Q6H 04/04/19 Acetaminophen/Codeine* (TYLENOL # 3*) 1 Ea Tab, PO PRN PRN for ABDOMINAL PAIN 04/04/19 Clindamycin Hcl (CLINDAMYCIN HCL) 300 Mg Capsule, 300 MG PO Q6H 04/04/19 Hydrochlorothiazide (HYDROCHLOROTHIAZIDE) 25 Mg Tablet, 12.5 MG PO DAILY, #30 TAB 03/14/19 Medications in the ED Ondansetron HCl 4 mg Q4H PRN IV NAUSEA AND VOMITING; Start 12/15/19 at 20:30; Stop 01/14/20 at 20:29; Status UNV Sodium Chloride 1,000 ml @ 100 mls/hr Q10H IV ; Start 12/15/19 at 20:30; Stop 01/14/20 at 20:29; Status UNV Haloperidol Lactate 4 mg ONCE ONCE IV ; Start 12/15/19 at 20:30; Stop 12/15/19 at 20:31; Status UNV Capsaicin UD STAT TP ; Start 12/15/19 at 20:25; Stop 12/15/19 at 20:28; Status NITIN LENTZ MD Dec 15, 2019 20:36
[2019-12-15] MEDS ORDERED: HALOPERIDOL LACTATE 5 MG/ML VIAL IM ONE (20:45)
[2019-12-15 20:50] LABS: BASOPHILS % 0.4 % (0.0-1.0); HEMOGLOBIN 13.8 g/dL (14.0-18.0); LYMPHOCYTES # (AUTO) 1.5 (1.0-3.2); LYMPHOCYTES % 19.8 % (18.0-39.1); MEAN CORPUSCULAR HEMOGLOBIN 32.7 pg (28-32); MEAN CORPUSCULAR HGB CONC 33.7 g/dL (31-35); MEAN CORPUSCULAR VOLUME 97.2 fL (81-99); MONOCYTES # (AUTO) 0.3 (0.2-0.8); MONOCYTES % 3.9 % (4.4-11.3); NEUTROPHILS # (AUTO) 5.6 (2.1-6.9); NEUTROPHILS % 75.8 % (38.7-80.0); PLATELET COUNT 242 x10e3/uL (140-360); RED BLOOD COUNT 4.22 x10e6/uL (4.3-5.7); RED CELL DISTRIBUTION WIDTH 11.9 % (11.7-14.4)
[2019-12-15 21:23] LABS: ALBUMIN 4.8 g/dL (3.5-5.0); ALBUMIN/GLOBULIN RATIO 1.2 (0.8-2.0); ANION GAP 17.6 mmol/L (8-16); CREATININE, SERUM 1.55 mg/dL (0.72-1.25); POTASSIUM 3.6 mmol/L (3.5-5.1)
--- OUTSIDE RECORDS SUMMARY | 2019-12-15 22:22 | XMS REPORT | Clinical Summary ---
Author Author [facility] Organization [facility] Address Unknown Phone Unavailable Care Team Providers Care Beauty Specialist Name Role Phone PCP Unavailable Allergies Comments [...] Kyra Wei RN Results Not on fileafter 12/14/2018 Insurance Type Payer Benefit Subscriber ID Effective Phone Address Plan / Dates Group [place] [employer] [id number] SSI xxxxxxxxx 2017-P [id number] [place] [address] [employer]ELF-[employer] SELF-PAY xxxxxxxxx 2018-P [phone] [id number] [place] [address] Vimal Kim Personal/F Self [address] amily (Home) [place] [address] Advance Directives Date Inactivated Comments Code Status Date Activated 11/12/2011 4:39 PM Full Code 11/11/2011 4:04 AM
--- OUTSIDE RECORDS SUMMARY | 2019-12-15 22:23 | XMS REPORT | Continuity of Care Document ---
Author Author [facility] Organization [facility] Address [address] [place] [address] Phone Unavailable Care Team Providers Care Salvage Clerk Name Role Phone NONSTAFF PCP Unavailable Brown MONROY Attphys Unavailable Sergio MONTGOMERY Attphys Unavailable WESLY SPICER Attphys Unavailable PAULINE DAMON Attphys Unavailable Payers Payer Name Policy Type Policy Number Effective Date Expiration Date [place] Medicaid [id number] 2017 00:00:00 2020 00:00:00 [facility] Problems Condition Name Condition Details Condition Category Status Onset Date Resolution Date Last Treatment Date Treating Clinician Comments Source LBP (low back pain) LBP (low back pain) Disease Active 2014-05-11 00:00 :00 [facility] Homeless Homeless Disease Active 2012-01-12 00:00:00 [facility] Polysubstance (excluding opioids) dependence Polysubst ance (excluding opioids) dependence Disease Active 2011-12-15 00:00:00 [facility] AIDS AIDS Disease Active 2011-09-03 00:00:00 [facility] Major depression, recurrent Major depression, recurrent Disease Active 2010-12-15 00:00:00 [facility] ealth Problem Condition Active [facility] Abdominal pain Abdominal pain Disease Active [facility] Allergies, Adverse Reactions, Alerts Allergy Name Allergy Type Status Severity Reaction(s) Onset Date Inacti ve Date Treating Clinician Comments Source No Known Allergies DA Active U 2019-02-28 00:00:00 [facility] Aspirin Propensity to adverse reactions to drug Active 2018-01-06 00:00:00 [facility] ASPIRIN DA Active U 2005-10-16 00:00:00 [facility] No Known Contrast Allergies DA Active U 2005-10-16 00:00: 00 [facility] No Known Food Allergies DA Active U 2005-10-16 00:00:00 [facility] No Known Other Allergies DA Active U 2005-10-16 00:00:00 [facility] Family History Family Member Diagnosis Comments Start Date Stop Date Source Natural brother Diabetes [facility] alth Natural father Lipids [facility] Natural father Unknown Fam Hx [facility] Natural mother Alcohol/Drug [facility] Natural mother Diabetes [facility] Natural mother Hypertension [facility] Natural sister Seizures [facility] Social History Social Habit Start Date Stop Date Quantity Comments Source History of tobacco use Cigarette Smoker [facility] Sex Assigned At [facility] Cigarettes smoked current (pack per day) - Reported 00:00:00 2018-10-05 00:00:00 [facility] Cigarette pack-years 2018-10-05 00:00:00 2018-10-05 00:00:00 [facility] Alcohol intake 2018-10-05 00:00:00 2018-10-05 00:00:00 Current non-drinker of alcohol (finding) [facility] SDOH Food Worry 2016-09-22 00:00:00 2016-09-22 00:00:[address] [facility] Food Scarcity 2016-09-22 00:00:00 2016-09-22 00:00:00 1 [facility] Smoking Status Start Date Stop Date Source Current every day smoker 2018-10-05 00:00:00 [facility] Medications Ordered Medication Name Filled Medication Name Start Date Stop Da te Current Medication? Ordering Clinician Indication Dosage Frequency Signature (SIG) Comments Components Source Dicyclomine Hcl (Bentyl) 10 Mg/1 Ml AMPUL Dicyclomine Hcl (Bentyl) 10 Mg/1 Ml AMPUL 2019-12-14 10:35:00 Yes [address] [facility] Ondansetron Hcl (Zofran*) 4 Mg TABLET Ondansetron Hcl (Zofra n*) 4 Mg TABLET 2019-12-14 10:35:00 Yes 4 Every 6 Hours as n eeded for Nausea [facility] Pantoprazole Sodium (Protonix) 40 Mg TABLET. Pantopr azole Sodium (Protonix) 40 Mg TABLET. 2019-12-14 10:35:00 Yes 40 Daily [facility] ibuprofen (MOTRIN) 400 mg tablet 2018-01-06 00:00:00 Yes Abdominal pain, unspecified abdominal location 400mg Take 1 ta blet by mouth every 8 hours as needed for Pain. [facility] sulfamethoxazole-trimethoprim (BACTRIM DS) 800-160 mg per ta blet 2017-02-19 00:00:00 Yes AIDS 1{tbl} Take 1 tablet by mouth 3 time s weekly. [facility] darunavir (PREZISTA) 800 mg Tab tablet 2017-02-18 00:00:00 Yes AIDS 800mg QD Take 1 tablet by mouth daily. [facility] RITONavir (NORVIR) 100 mg Tab 2017-02-18 00:00:00 Yes AIDS 100mg QD Take 1 tablet by mouth daily. [facility] emtricitabine-tenofovir alafen (DESCOVY) 200-25 mg tablet 2017-02-18 00:00:00 Yes AIDS 1{tbl} QD Take 1 tablet by mouth daily. [facility] BOOST VHC 0.09-2.25 gram-kcal/mL oral liquid 2017-02-18 00:00:00 Yes AIDS 1{package} Take 1 Package by mouth 3 times daily. [facility] Acetaminophen/Codeine Phosphate (Tylenol # 3*) 1 Ea TA B Acetaminophen/Codeine Phosphate (Tylenol # 3*) 1 Ea TAB Yes As Needed as needed for Abdominal Pain [facility] Clindamycin Hcl Clindamycin Hcl Yes 300 Every 6 Hours [facility] Dicyclomine Hcl (Bentyl) 10 Mg/1 Ml AMPUL Dicyclomine Hcl (Bentyl) 10 Mg/1 Ml AMPUL Yes 20 Four Times Daily [facility] Hydrochlorothiazide Hydrochlorothiazide Yes 12.5 Daily [facility] Metronidazole (Flagyl) 500 Mg TABLET Metronidazole (Flagyl) 500 Mg TABLET Yes 500 Every 6 Hours [facility] Immunizations Ordered Immunization Name Filled Immunization Name Date Status Comments Source Influenza <Unspecified> 2017-03-09 00:00:00 Completed [facility] PPD 2016-09-22 00:00:00 Completed [facility] Pneumococcal 13-valent conj 0.5 mL injection 2014-04-30 00 :00:00 Completed [facility] Influenza Vaccine 2014-01-30 00:00:00 Completed [facility] PPD 2014-01-02 00:00:00 Completed [facility] Influenza Vaccine 2012-02-09 00:00:00 Completed [facility] Hepatitis B Vaccine 2012-01-14 00:00:00 Completed [facility] PPV 23 Pneumococcal Polysaccaride 2011-12-17 00:00:00 Comp leted [facility] Hepatitis B Vaccine 2011-12-17 00:00:00 Completed [facility] PPD 2011-12-14 00:00:00 Completed [facility] PPD 2010-10-24 00:00:00 Completed [facility] Tdap Tetanus, diphtheria, acellular pertussis Vaccine 2009-10-31 00:00:00 [facility] Vital Signs Vital Name Observation Time Observation Value Comments Source Weight 2019-12-14 07:55:00 210 [lb_av] [facility] BMI (Body Mass Index) 2019-12-14 07:55:00 37.2 kg/m2 [facility] Body Temperature 2019-04-04 12:48:00 97.9 [degF] [facility] Procedures Procedure Date / Time Performed Performing Clinician Ana Maria e Computed tomography of abdomen and pelvis with contrast 00:00:00 [facility] Computed tomography of abdomen and pelvis with contrast 2018 00:00:00 BRANDO MONTGOMERY [facility] INSPECTION OF LOWER INTESTINAL TRACT, ENDO 2019-03-17 00:00:00 [facility] INSPECTION OF UPPER INTESTINAL TRACT, ENDO 2019-03-17 00:00:[address] [facility] [address] of abdomen and pelvis without contrast 2019-03-14 00:00:00 [facility] Computed tomography of abdomen and pelvis with contrast 2018 00:00:00 MARISOLPAULINE [facility] Plan of Care Planned Activity Planned Date Details Comments Source Future Scheduled Test 2020-02-01 00:00:00 IMM Influenza Seas onal Jan to July (>/= 19 yrs) [code = IMM Influenza Seasonal Jan to July (>/= 19 yrs)] [facility] Instructions Abdominal Pain - Adult [facility] Instructions Irritable Bowel Syndrome [facility] Encounters Start Date/Time End Date/Time Encounter Type Admission Type Att[facility] Care Department Encounter ID Source 2019-12-14 08:05:00 2019-12-14 11:10:00 Departed Emergency Room 1 GEOVANI MONROY [facility] [id number] [facility] 2019-04-04 07:55:00 2019-04-04 13:33:00 Departed Emergency Room 1 BRANDO MONTGOMERY [facility] [id number] [facility] 2019-03-26 16:20:00 2019-03-26 16:53:00 Departed Emergency Room [facility] [id number] [facility] 2019-03-15 11:39:00 2019-03-17 19:25:00 Discharged Inpatient 1 WESLY SPICER [facility] [id number] [facility] 2019-03-13 11:16:00 2019-03-13 16:09:00 Departed Emergency Room 1 PAULINE DAMON [facility] [id number] [facility] 2018-01-06 20:36:16 2018-01-06 20:36:16 Emergency [facility] [id number] [facility] 2016-09-16 15:48:00 2016-09-16 15:48:00 Emergency E [facility] [id number] [facility] Results Test Description Test Time Test Comments Results Result Comments Source CT ABDOMEN/PELVIS W 2019-12-14 10:01:00 [facility] [address] [address] Patient Name: QUYEN KIM MR #: [id number] : 1980 Age/Sex: 39/M Req #: [id number] Adm Physician: Ordered by: GEOVANI MONROY DO Report #: [id number] Location: ER Room/Bed: Procedure: [id number] CT/CT ABDOMEN/PELVIS W Exam Date: 12/14/19 Exam Time: 937 REPORT STATUS: Signed EXAMINATION: CT of the abdomen and pelvis with contrast. TECHNIQUE: Helical CT images of the abdomen and pelvis were performed from the lung bases to the lesser trochanters after the intravenous administration of 150 cc of Isovue 300 and the oral administration of none. Coronal and sagittal reformatted images were obtained. Dose modulation, iterative reconstruction, and/or weight based adjustment of the mA/kV was utilized to reduce the radiation dose to as low as reasonably achievable. COMPARISON: 04/04/2019 CLINICAL HISTORY:Abdominal pain, nausea and vomiting. DISCUSSION: ABDOMEN/PELVIS: LOWER THORAX:5 cm bulla in the right lower lung. No pneumonia. HEPATOBILIARY: 3 enhancing foci in the left hepatic lobe, largest 1.2 cm image 27, likely flash filling hemangioma. Appear present on prior CT, however due to differences in phase not well visualized. No intra-or extrahepatic biliary ductal dilation. The gallbladder is normal. SPLEEN: No splenomegaly. PANCREAS: No focal masses or ductal dilatation. ADRENALS: No adrenal nodules. KIDNEYS/URETERS: No obstruction. Bilateral renal cysts. No solid masses. Stable 6 mm left renal calculus. PELVIC ORGANS/BLADDER: The bladder is normal. PERITONEUM/RETROPERITONEUM: No free air or fluid. LYMPH NODES: No intra-abdominal, retroperitoneal, pelvic or inguinal lymphadenopathy. VESSELS: The celiac trunk,superior and inferior mesenteric and bilateral renal arteries are patent The portal, superior mesenteric and splenic veins are patent. GI TRACT: No distention or wall thickening. BONES AND SOFT TISSUE: No bony destructive lesions. Bone island in the left iliac bone. Degenerative disease L5-S1. IMPRESSION: No acute CT finding. Stable nonobstructing 6 mm left renal calculus. Signed by: Dr. Roxie Montes M.D. on 12/14/2019 10:10 AM Dictated By: ROXIE MONTES MD 1010 Transcribed By: JEANNE on 12/14/19 1010 COPY TO: GEOVANI MONROY, Urine color determination 2019-12-14 09:35:00 Test Item Urine Color (test code = 5778-6) ORANGE YELLOW [facility] [id number] 09:35:00* Test Item Value Reference Range Interpretation Comments Urine Clarity (test code = 15991-2) SL CLOUDY [facility] by Test strip 2019-12-14 09:35:00* Test Item Value Reference Range Interpretation Comments Urine Specific [place] (test code = 5811-5) >=1.030 1.010-1.02 5 [facility] pH measurement by automated test [id number] 09:35:00* Test Item Value Reference Range Interpretation Comments Urine pH (test code = 43667-8) 6 5-7 [facility] leukocyte esterase detection by [id number] 09:35:00* Test Item Value Reference Range Interpretation Comments Urine Leukocyte Esterase (test code = 5799-2) NEGATIVE NEGATIVE [facility] nitrite [id number] 09:35:00* Test Item Value Reference Range Interpretation Comments Urine Nitrite (test code = 59582-0) NEGATIVE NEGATIVE [facility] protein measurement by test strip (mass/volume)2019-12-14 09:35:00* Test Item Value Reference Range Interpretation Comments Urine Protein (test code = 5804-0) 2+ NEGATIVE [facility] glucose [id number] 09:35:00* Test Item Value Reference Range Interpretation Comments Urine Glucose (UA) (test code = 2349-9) NEGATIVE NEGATIVE [facility] ketones detection by automated test [id number] 09:35:00* Test Item Value Reference Range Interpretation Comments Urine Ketones (test code = 69021-3) 2+ NEGATIVE [facility] opiates screening [id number] 09:35:00* Test Item Value Reference Range Interpretation Comments Urine Opiates Screen (test code = 87084-5) POSITIVE NEGATIVE This test provides only a screen. Positive results should be repeated by a confi rmatory test.[facility] Center[facility] screen, urine 2019-12-14 09:35:00* Test Item Value Reference Range Interpretation Comments Urine Barbiturates Screen (test code = 075880389) NEGATIVE NEGA TIVE [facility] phencyclidine detection by screening [id number] 09:35:00* Test Item Value Reference Range Interpretation Comments Urine Phencyclidine Screen (test code = 34815-2) NEGATIVE NEGAT ANGY [facility] amphetamines detection by screen method > 1000 [id number] 09:35:00* Test Item Value Reference Range Interpretation Comments Urine Amphetamines Screen (test code = 52554-7) NEGATIVE NEGATI VE [facility] CenterFluoroscopic procedure less than one hour [id number] 09:35:00* Test Item Value Reference Range Interpretation Comments Urine Methamphetamines Screen (test code = Urine Metha mphetamines Screen) NEGATIVE NEGATIVE [facility] benzodiazepines detection by screening [id number] 09:35:00* Test Item Value Reference Range Interpretation Comments Urine Benzodiazepines Screen (test code = 99006-8) NEGATIVE NEG ATIVE [facility] cocaine measurement (mass/volume) 2019-12-14 09:35:00* Test Item Value Reference Range Interpretation Comments Urine Cocaine Screen (test code = 3398-5) POSITIVE NEGATIVE This test provides only a screen. Positive results should be repeated by a confi rmatory test.[facility] Center[facility] cannabinoids detection by screening [id number] 09:35:00* Test Item Value Reference Range Interpretation Comments Urine Cannabinoids Screen (test code = 03922-1) POSITIVE NEGATI VE This test provides only a screen. Positive results should be repeated by a confi rmatory test.[facility] Center[facility] methadone screen 2019-12-14 09:35:00* Test Item Value Reference Range Interpretation Comments Urine Methadone Screen (test code = 89055-4) NEGATIVE NEGATIVE THESE RESULTS ARE FOR MEDICAL TREATMENT ONLYTHIS REPORT CONTAINS UNCONFIR MED SCREENING RESULTS*POSITIVE RESULTS WILL BE CONFIRMED BY REFERENCE LAB UPON R EQUEST CUT-OFFDRUG CLASS CONCENTRATION ng/mLAmphetamines 1000Methamphetamines 1000Cocaine Metabolite 300Opiate 300Phencyc lidine 25Cannabinoid 50Barbiturates 300Benzodiazepine 300Methadone 300[facility] u[facility] measurement by test strip (mass/volume)2019-12-14 09:35:00* Test Item Value Reference Range Interpretation Comments Urine Urobilinogen (test code = 60246-4) 0.2 0.2-1 [facility] total bilirubin measurement (mass/volume)2019-12-14 09:35:00* Test Item Value Reference Range Interpretation Comments Urine Bilirubin (test code = 1978-6) SMALL NEGATIVE [facility] Center[facility] erythrocytes [id number] 09:35:00* Test Item Value Reference Range Interpretation Comments Urine Blood (test code = 09824-1) MODERATE NEGATIVE [facility] CenterAutomated urine sediment leukocyte count by microscopy (number/high power field)2019-12-14 09:35:00* Test Item Value Reference Range Interpretation Comments Urine WBC (test code = 5821-4) 11-20 0-5 [facility] CenterErythrocytes detection in urine sediment by light [id number] 09:35:00* Test Item Value Reference Range Interpretation Comments Urine RBC (test code = 92542-4) 6-10 0-5 [facility] CenterBacteria detection in urine sediment by light gonstvgbsw4168-11-74 09:35:00* Test Item Value Reference Range Interpretation Comments Urine Bacteria (test code = 77358-6) RARE NONE [facility] CenterEpithelial cells detection in urine sediment by light fftwhyrclr2999-78-28 09:35:00* Test Item Value Reference Range Interpretation Comments Urine Epithelial Cells (test code = 32751-0) FEW NONE [facility] CenterBlood leukocytes automated count (number/volume)2019-12-14 08:00:00* Test Item Value Reference Range Interpretation Comments White Blood Count (test code = 6690-2) 8.67 4.8-10.8 [facility] CenterBlood erythrocytes automated count (number/volume)2019-12-14 08:00:00* Test Item Value Reference Range Interpretation Comments Red Blood Count (test code = 789-8) 4.16 4.3-5.7 [facility] CenterBlood hemoglobin measurement (moles/volume)2019-12-14 08:00:00* Test Item Value Reference Range Interpretation Comments Hemoglobin (test code = 44095-9) 13.6 14.0-18.0 [facility] CenterAutomated blood hematocrit (volume fraction)2019-12-14 08:00:00* Test Item Value Reference Range Interpretation Comments Hematocrit (test code = 4544-3) 40.9 38.2-49.6 [facility] CenterAutomated erythrocyte mean corpuscular [id number] 08:00:00* Test Item Value Reference Range Interpretation Comments Mean Corpuscular Volume (test code = 787-2) 98.3 81-99 [facility] CenterAutomated erythrocyte mean corpuscular hemoglobin (mass per erythrocyte)2019-12-14 08:00:00* Test Item Value Reference Range Interpretation Comments Mean Corpuscular Hemoglobin (test code = 785-6) 32.7 28-32 [facility] CenterAutomated erythrocyte mean corpuscular hemoglobin concentration measurement (mass/volume)2019-12-14 08:00:00* Test Item Value Reference Range Interpretation Comments Mean Corpuscular Hemoglobin Concent (test code = 786-4) 33.3 31-35 [facility] CenterRDW ApzXa-[id number] 08:00:00* Test Item Value Reference Range Interpretation Comments Red Cell Distribution Width (test code = 68707-0) 12.0 11.7 -14.4 [facility] CenterAutom[facility] blood platelet count (count/volume)2019-12-14 08:00:00* Test Item Value Reference Range Interpretation Comments Platelet Count (test code = 777-3) 206 140-360 [facility] CenterAutomated blood segmented neutrophil count as percentage of total tjnbbzatgf3546-19-72 08:00:00* Test Item Value Reference Range Interpretation Comments Neutrophils (%) (Auto) (test code = 41840-3) 61.8 38.7-80.0 [facility] blood lymphocyte count as percentage ot total eosivdktjm3369-83-47 08:00:00* Test Item Value Reference Range Interpretation Comments Lymphocytes (%) (Auto) (test code = 736-9) 30.0 18.0-39.1 [facility] CenterAutomated blood monocyte count as percentage of total bfuvgkggty4034-81-00 08:00:00* Test Item Value Reference Range Interpretation Comments Monocytes (%) (Auto) (test code = 5905-5) 6.8 4.4-11.3 [facility] as percentage of total temylkgehq1895-06-92 08:00:00* Test Item Value Reference Range Interpretation Comments Eosinophils (%) (Auto) (test code = 713-8) 0.5 0.0-6.0 [facility] CenterAutom[facility] blood basophil count as percentage of total kplpemwomu7132-78-53 08:00:00* Test Item Value Reference Range Interpretation Comments Basophils (%) (Auto) (test code = 706-2) 0.6 0.0-1.0 [facility] CenterFluoroscopic procedure less than one hour toczhglg4053-80-34 08:00:00* Test Item Value Reference Range Interpretation Comments IM GRANULOCYTES % (test code = IM GRANULOCYTES %) 0.3 0.0- 1.0 [facility] CenterAutom[facility] blood neutrophil count 2019-12-14 08:00:00* Test Item Value Reference Range Interpretation Comments Neutrophils # (Auto) (test code = 751-8) 5.4 2.1-6.9 [facility] CenterBlood lymphocytes count (number/volume) 2019-12-14 08:00:00* Test Item Value Reference Range Interpretation Comments Lymphocytes # (Auto) (test code = 16303-7) 2.6 1.0-3.2 [facility] CenterBlood monocytes automated count (number/volume)2019-12-14 08:00:00* Test Item Value Reference Range Interpretation Comments Monocytes # (Auto) (test code = 742-7) 0.6 0.2-0.8 [facility] CenterAutom[facility] blood eosinophil count 2019-12-14 08:00:00* Test Item Value Reference Range Interpretation Comments Eosinophils # (Auto) (test code = 711-2) 0.0 0.0-0.4 [facility] CenterAutom[facility] blood basophil count (count/volume)2019-12-14 08:00:00* Test Item Value Reference Range Interpretation Comments Basophils # (Auto) (test code = 704-7) 0.1 0.0-0.1 [facility] CenterFluoroscopic procedure less than one hour [id number] 08:00:00* Test Item Value Reference Range Interpretation Comments Absolute Immature Granulocyte (auto (jourdan t code = Absolute Immature Granulocyte (auto) 0.03 0-0.1 [facility] or plasma sodium measurement (moles/volume)2019-12-14 08:00:00* Test Item Value Reference Range Interpretation Comments Sodium Level (test code = 2951-2) 145 136-145 [facility] Centererum or plasma potassium measurement (moles/volume)2019-12-14 08:00:00* Test Item Value Reference Range Interpretation Comments Potassium Level (test code = 2823-3) 4.0 3.5-5.1 [facility] Centererum or plasma chloride measurement (moles/volume)2019-12-14 08:00:00* Test Item Value Reference Range Interpretation Comments Chloride Level (test code = 2075-0) 112 98-107 [facility] Centererum or plasma carbon dioxide, total measurement (moles/volume)2019-12-14 08:00:00* Test Item Value Reference Range Interpretation Comments Carbon Dioxide Level (test code = 2028-9) 17 22-29 [facility] Centererum or plasma anion [id number] 08:00:00* Test Item Value Reference Range Interpretation Comments Anion Gap (test code = 88963-1) 20.0 8-16 [facility]ere[facility] or plasma urea nitrogen measurement (mass/volume)2019-12-14 08:00:00* Test Item Value Reference Range Interpretation Comments Blood Urea Nitrogen (test code = 3094-0) 15 7-26 [facility]ererum or plasma creatinine measurement (mass/volume)2019-12-14 08:00:00* Test Item Value Reference Range Interpretation Comments Creatinine (test code = 2160-0) 1.44 0.72-1.25 [facility] Centererum or plasma urea nitrogen/creatinine mass [id number] 08:00:00* Test Item Value Reference Range Interpretation Comments BUN/Creatinine Ratio (test code = 3097-3) 10 6-25 [facility] CenterEstimated glomerular filtration rate (GFR) ejhznnjgbtvlh7970-84-55 08:00:00* Test Item Value Reference Range Interpretation Comments Estimat Glomerular Filtration Rate (test code = 608793038) > 60 >60 Ranges were taken from the National Kidney Disease Education Program and the [facility] Foundation literature.Reference ranges:60 or greater: Tmglpu34-43 ( for 3 consecutive months): Chronic kidney disease 15 or less: Kidney failureCarrollton Regional Medical CenterGlucose xxygqnwjmed9684-30-61 08:00:00* Test Item Value Reference Range Interpretation Comments Glucose Level (test code = BNF0844) 101 74-118 [facility]ererum or plasma calcium measurement (mass/volume)2019-12-14 08:00:00* Test Item Value Reference Range Interpretation Comments Calcium Level (test code = 57219-4) 10.7 8.4-10.2 [facility] Centererum or plasma total bilirubin measurement (mass/volume)2019-12-14 08:00:00* Test Item Value Reference Range Interpretation Comments Total Bilirubin (test code = 1975-2) 0.9 0.2-1.2 [facility] CenterFluoroscopic procedure less than one hour eapdozgl2373-84-95 08:00:00* Test Item Value Reference Range Interpretation Comments Aspartate Amino Transf (AST/SGOT) (test code = Aspartate Amino Transf (AST/SGOT)) 17 5-34 [facility] Centererum or plasma alanine aminotransferase measurement (enzymatic activity/volume)2019-12-14 08:00:00* Test Item Value Reference Range Interpretation Comments Alanine Aminotransferase (ALT/SGPT) (test code = 1742-6) 15 0-55 [facility] Centererum or plasma protein measurement (mass/volume)2019-12-14 08:00:00* Test Item Value Reference Range Interpretation Comments Total Protein (test code = 2885-2) 9.1 6.5-8.1 [facility] Centererum or plasma albumin measurement (mass/volume)2019-12-14 08:00:00* Test Item Value Reference Range Interpretation Comments Albumin (test code = 1751-7) 4.9 3.5-5.0 [facility] CenterPlasma globulin measurement (mass/volume) 2019-12-14 08:00:00* Test Item Value Reference Range Interpretation Comments Globulin (test code = 21865-9) 4.2 2.3-3.5 [facility] Centererum or plasma albumin/globulin mass vjifx6346-67-83 08:00:00* Test Item Value Reference Range Interpretation Comments Albumin/Globulin Ratio (test code = 1759-0) 1.2 0.8-2.0 [facility] Centererum or plasma alkaline phosphatase measurement (enzymatic activity/volume)2019-12-14 08:00:00* Test Item Value Reference Range Interpretation Comments Alkaline Phosphatase (test code = 6768-6) 94 40-150 [facility] Centererum or plasma creatine kinase measurement (enzymatic activity/volume)2019-12-14 08:00:00* Test Item Value Reference Range Interpretation Comments Creatine Kinase (test code = 2157-6) 57 30-200 [facility] Centererum or plasma creatine kinase MB measurement (mass/volume)2019-12-14 08:00:00* Test Item Value Reference Range Interpretation Comments Creatine Kinase MB (test code = 58447-4) 0.40 0-5.0 [facility] CenterTroponin I measurement by highly sensitive enzyme slximepyqvn1614-57-24 08:00:00* Test Item Value Reference Range Interpretation Comments Troponin I (test code = 19139-7) 0.004 0-0.300 [facility] Centererum or plasma lipase measurement (enzymatic activity/volume)2019-12-14 08:00:00* Test Item Value Reference Range Interpretation Comments Lipase (test code = 3040-3) 19 8-78 [facility] CenterUrine Opiates Ssixrl9606-04-92 13:43:00* Test Item Value Reference Range Interpretation Comments Urine Opiates Screen (test code = 12902-2) NEGATIVE NEGATIVE ALL TESTS PERFORMED MANUALLY ON [employer] TOX/SEE TEST --- 04/04/19 1340 ---OPIATE S previously reported as: N ALL TESTS PERFORMED MANUALLY ON [employer] TOX/SEE TEST [facility] CenterUrine Barbiturates Anpwis5386-68-41 13:43:00* Test Item Value Reference Range Interpretation Comments Urine Barbiturates Screen (test code = 479089100) NEGATIVE NEGA TIVE --- 04/04/19 1341 ---BARBITURATES previously reported as: N [facility] CenterUrine Phencyclidine Xtjvvu5125-25-34 13:43:00* Test Item Value Reference Range Interpretation Comments Urine Phencyclidine Screen (test code = 37562-2) NEGATIVE NEGAT ANGY --- 04/04/19 1341 ---PCP previously reported as: N [facility] CenterUrine Amphetamines Ysmpqp4060-87-43 13:43:00* Test Item Value Reference Range Interpretation Comments Urine Amphetamines Screen (test code = 47970-5) NEGATIVE NEGATI VE --- 04/04/19 1342 ---AMPHETAMINES previously reported as: N [facility] CenterUrine Methamphetamines Nitpmm1436-64-66 13:43:00* Test Item Value Reference Range Interpretation Comments Urine Methamphetamines Screen (test code = Urine Metha mphetamines Screen) NEGATIVE NEGATIVE --- 04/04/191341 ---MAMP [facility] Wibzyc3701-77-36 13:43:00* Test Item Value Reference Range Interpretation Comments Urine Benzodiazepines Screen (test code = 15644-5) NEGATIVE NEG ATIVE --- 04/04/191341 ---BENZODIAZEPINES previously reported [facility]: [facility] Cocaine Pjqdfv9576-96-71 13:43:00* Test Item Value Reference Range Interpretation Comments Urine Cocaine Screen (test code = 3398-5) NEGATIVE NEGATIVE --- 04/04/191341 ---COCAINE previously reported [facility]: [facility] Cannabinoids Jbidas4559-51-78 13:43:00* Test Item Value Reference Range Interpretation Comments Urine Cannabinoids Screen (test code = 22846-3) POSITIVE NEGATI VE H This test provides [...] 300Phencyclidine 25Cannabinoid 50Barbiturates 300Benzodi azepine 300Methadone 300[facility]bergU[facility] Methadone Teggjr9504-13-43 13:43:00* Test Item Value Reference Range Interpretation Comments Urine Methadone Screen (test code = 89396-7) POSITIVE NEGATIVE H This test provides only [...] 300Phencyclidine 25Cannabinoid 50Barbiturates 300 Benzodiazepine 300Methadone 300[facility]bergCT ABDOMEN/PELVIS Q3781-30-19 12:24:00 [facility] [address] [address] Patient Name: QUYEN KIM MR #: [id number] : 1980 Age/Sex: 38/M Req #: [id number] Adm Physician: Ordered by: BRANDO MONTGOMERY MD Report #: [id number] Location: ER Room/Bed: Procedure: [id number] CT/CT ABDOMEN/PELVIS W Exam Date: 04/04/19 Exam [...] By: EVELIO MARIN MD 1232 Transcribed By: SACHA SPICER on 04/04/19 1232 COPY TO: BRANDO MONTGOMERY MD Urine Color 2019-04-04 11:38:00* Test Item Value Reference Range Interpretation Comments Urine Color (test code = 5778-6) YELLOW YELLOW [facility] CenterUrine Xanxbih7600-14-71 11:38:00* Test Item Value Reference Range Interpretation Comments Urine Clarity (test code = 79436-9) CLEAR CLEAR [facility] CenterUrine Specific Qlxmstu7314-58-43 11:38:00 * Test Item Value Reference Range Interpretation Comments Urine Specific [place] (test code = 5811-5) 1.010 1.010-1.02 5 [facility] CenterUrine nB2278-28-01 11:38:00* Test Item Value Reference Range Interpretation Comments Urine pH (test code = 36461-8) 6.5 5-7 [facility] CenterUrine Leukocyte Uojynstc8325-25-50 11:38:00* Test Item Value Reference Range Interpretation Comments Urine Leukocyte Esterase (test code = 5799-2) NEGATIVE NEGATIVE [facility] Fsofxtc9380-95-64 11:38:00* Test Item Value Reference Range Interpretation Comments Urine Nitrite (test code = 73512-2) NEGATIVE NEGATIVE [facility] Fxnzxjl9273-81-39 11:38:00* Test Item Value Reference Range Interpretation Comments Urine Protein (test code = 5804-0) TRACE NEGATIVE H [facility] Glucose (UA)2019-04-04 11:38:00* Test Item Value Reference Range Interpretation Comments Urine Glucose (UA) (test code = 2349-9) NEGATIVE NEGATIVE [facility] Ojsvjbb4181-99-59 11:38:00* Test Item Value Reference Range Interpretation Comments Urine Ketones (test code = 25860-7) NEGATIVE NEGATIVE [facility] Vdbznpadbdeb2987-31-45 11:38:00* Test Item Value Reference Range Interpretation Comments Urine Urobilinogen (test code = 72805-0) 0.2 0.2-1 [facility] Hyiixjogm8862-26-90 11:38:00* Test Item Value Reference Range Interpretation Comments Urine Bilirubin (test code = 1978-6) NEGATIVE NEGATIVE [facility] Rrbjh1222-00-84 11:38:00* Test Item Value Reference Range Interpretation Comments Urine Blood (test code = 57487-5) NEGATIVE NEGATIVE [facility] BFU7258-47-67 11:38:00* Test Item Value Reference Range Interpretation Comments Urine WBC (test code = 5821-4) 0-5 0-5 [facility] LUT9253-28-58 11:38:00* Test Item Value Reference Range Interpretation Comments Urine RBC (test code = 09370-8) 0-5 0-5 [facility] Wbicdiol3321-61-50 11:38:00* Test Item Value Reference Range Interpretation Comments Urine Bacteria (test code = 83302-2) RARE NONE [facility] Epithelial Ohbnq2776-21-22 11:38:00 * Test Item Value Reference Range Interpretation Comments Urine Epithelial Cells (test code = 70748-1) FEW NONE [facility] Centerodium Wbmhz9403-37-69 11:26:00* Test Item Value Reference Range Interpretation Comments Sodium Level (test code = 2951-2) 137 136-145 [facility] CenterPotassium Chibg0104-67-11 11:26:00* Test Item Value Reference Range Interpretation Comments Potassium Level (test code = 2823-3) 3.7 3.5-5.1 [facility] CenterChloride Labsb7552-21-52 11:26:00* Test Item Value Reference Range Interpretation Comments Chloride Level (test code = 2075-0) 105 98-107 [facility] CenterCarbon Dioxide Iixyr7880-72-78 11:26:00* Test Item Value Reference Range Interpretation Comments Carbon Dioxide Level (test code = 2028-9) 20 22-29 L [facility] CenterAnion Ivp3918-27-92 11:26:00* Test Item Value Reference Range Interpretation Comments Anion Gap (test code = 84410-3) 15.7 8-16 [facility] CenterBlood Urea Trnggcxh3597-26-18 11:26:00* Test Item Value Reference Range Interpretation Comments Blood Urea Nitrogen (test code = 3094-0) 10 7-26 [facility] CenterCreatinine2019-12-03 11:26:00* Test Item Value Reference Range Interpretation Comments Creatinine (test code = 2160-0) 1.35 0.72-1.25 H [facility] CenterBUN/Creatinine Ntgan8520-49-20 11:26:00* Test Item Value Reference Range Interpretation Comments BUN/Creatinine Ratio (test code = 3097-3) 7 6-25 [facility] CenterEstimat Glomerular Filtration Rate 2019-04-04 11:26:00* Test Item Value Reference Range Interpretation Comments Estimat Glomerular Filtration Rate (test code = 952505744) > 60 >60 Ranges were taken from the National Kidney Disease Education Program and the [facility] Kid[facility] Foundation literature.Reference ranges:60 or greater: Hebzul37-69 ( for 3 consecutive months): Chronic kidney disease 15 or less: Kidney failureCarrollton Regional Medical CenterGlucose Awhde7445-15-74 11:26:00* Test Item Value Reference Range Interpretation Comments Glucose Level (test code = ICG7241) 106 74-118 [facility] CenterCalcium Ilrdw2350-10-06 11:26:00* Test Item Value Reference Range Interpretation Comments Calcium Level (test code = 58386-6) 9.8 8.4-10.2 [facility] CenterMagnesium Fjrse3814-49-76 11:26:00* Test Item Value Reference Range Interpretation Comments Magnesium Level (test code = 21906-5) 1.8 1.3-2.1 [facility] CenterTotal Hfacsmzzj7202-78-81 11:26:00* Test Item Value Reference Range Interpretation Comments Total Bilirubin (test code = 1975-2) 0.7 0.2-1.2 [facility] CenterAspartate Amino Transf (AST/SGOT) 2019-04-04 11:26:00* Test Item Value Reference Range Interpretation Comments Aspartate Amino Transf (AST/SGOT) (test code = Aspartate Amino Transf (AST/SGOT)) 15 5-34 [facility] CenterAlanine Aminotransferase (ALT/SGPT) 2019-04-04 11:26:00* Test Item Value Reference Range Interpretation Comments Alanine Aminotransferase (ALT/SGPT) (test code = 1742-6) 19 0-55 [facility] CenterTotal Jjbhgxf5022-65-05 11:26:00* Test Item Value Reference Range Interpretation Comments Total Protein (test code = 2885-2) 8.2 6.5-8.1 H [facility] CenterAlbumin2019-12-03 11:26:00* Test Item Value Reference Range Interpretation Comments Albumin (test code = 1751-7) 4.2 3.5-5.0 [facility] CenterGlobulin2019-12-03 11:26:00* Test Item Value Reference Range Interpretation Comments Globulin (test code = 93808-2) 4.0 2.3-3.5 H [facility] CenterAlbumin/Globulin Ukdmh2300-38-02 11:26:00 * Test Item Value Reference Range Interpretation Comments Albumin/Globulin Ratio (test code = 1759-0) 1.1 0.8-2.0 [facility] CenterAlkaline Ysbhdbdkzrj2193-04-59 11:26:00* Test Item Value Reference Range Interpretation Comments Alkaline Phosphatase (test code = 6768-6) 76 40-150 [facility] CenterCreatine Yxejyw1976-91-13 11:26:00* Test Item Value Reference Range Interpretation Comments Creatine Kinase (test code = 2157-6) 77 30-200 [facility] CenterCreatine Kinase EQ3852-95-39 11:26:00* Test Item Value Reference Range Interpretation Comments Creatine Kinase MB (test code = 48027-8) 0.60 0-5.0 [facility] CenterTroponin F0180-39-66 11:26:00* Test Item Value Reference Range Interpretation Comments Troponin I (test code = ISB1970) 0.068 0-0.300 [facility] CenterAmylase Ipqth3258-09-35 11:26:00* Test Item Value Reference Range Interpretation Comments Amylase Level (test code = 1798-8) 90 25-125 [facility] CenterLipase2019-12-03 11:26:00* Test Item Value Reference Range Interpretation Comments Lipase (test code = 3040-3) 16 8-78 [facility] CenterLactic Acid Hcgad5916-82-67 11:25:00* Test Item Value Reference Range Interpretation Comments Lactic Acid Level (test code = Lactic Acid Level) 1.2 0.5- 2.0 [facility] CenterProthrombin Vast9987-92-39 10:58:00* Test Item Value Reference Range Interpretation Comments Prothrombin Time (test code = 5902-2) 13.2 11.9-14.5 [facility] CenterProthromb Time International Ratio 2019-04-04 10:58:00* Test Item Value Reference Range Interpretation Comments Prothromb Time International Ratio (test code = 6301-6) 0.95 Oral Anticoagulant Therapy INR Values:1. Low Intensity Therapy 1.5 - 2.02 . Moderate Intensity Therapy 2.0 - 3.03. High Intensity Therapy(1) 2.5 - 3. 54. High Intensity Therapy(2) 3.0 - 4.05. Panic Value INR > 5.0 [facility] CenterActivated Partial Thromboplast Time 2019-04-04 10:58:00* Test Item Value Reference Range Interpretation Comments Activated Partial Thromboplast Time (test code = 53322-3) 29.7 23.8-35.5 [facility] CenterCHEST SINGLE (PORTABLE)2019-04-04 10:27:00 [facility] [address] [address] Patient Name: QUYEN KIM MR #: [id number] : 1980 Age/Sex: 38/M Req #: [id number] Adm Physician: Ordered by: BRANDO MONTGOMERY MD Report #: [id number] Location: ER Room/Bed: Procedure: [id number] DX/CH EST SINGLE (PORTABLE) Exam Date: 04/04/19 [...] COPY TO: BRANDO MONTGOMERY MD White Blood Voyew1137-62-52 10:10:00* Test Item Value Reference Range Interpretation Comments White Blood Count (test code = 6690-2) 8.03 4.8-10.8 [facility] CenterRed Blood Zguql5374-89-12 10:10:00* Test Item Value Reference Range Interpretation Comments Red Blood Count (test code = 789-8) 3.79 4.3-5.7 L [facility] CenterHemoglobin2019-12-03 10:10:00* Test Item Value Reference Range Interpretation Comments Hemoglobin (test code = 79092-2) 12.3 14.0-18.0 L [facility] CenterHematocrit2019-12-03 10:10:00* Test Item Value Reference Range Interpretation Comments Hematocrit (test code = 4544-3) 36.2 38.2-49.6 L [facility] CenterMean Corpuscular Ykscwk1511-18-15 10:10:00* Test Item Value Reference Range Interpretation Comments Mean Corpuscular Volume (test code = 787-2) 95.5 81-99 [facility] CenterMean Corpuscular Txzktcmqjl4843-34-04 10:10:00* Test Item Value Reference Range Interpretation Comments Mean Corpuscular Hemoglobin (test code = 785-6) 32.5 28-32 H [facility] CenterMean Corpuscular Hemoglobin Concent 2019-04-04 10:10:00* Test Item Value Reference Range Interpretation Comments Mean Corpuscular Hemoglobin Concent (test code = 786-4) 34.0 31-35 [facility] CenterRed Cell Distribution Cnvms5865-70-09 10:10:00* Test Item Value Reference Range Interpretation Comments Red Cell Distribution Width (test code = 41817-3) 12.6 11.7 -14.4 [facility] CenterPlatelet Dbhct4439-48-59 10:10:00* Test Item Value Reference Range Interpretation Comments Platelet Count (test code = 777-3) 260 140-360 [facility] CenterNeutrophils (%) (Auto)2019-04-04 10:10:00 * Test Item Value Reference Range Interpretation Comments Neutrophils (%) (Auto) (test code = 10913-2) 57.8 38.7-80.0 [facility] CenterLymphocytes (%) (Auto)2019-04-04 10:10:00 * Test Item Value Reference Range Interpretation Comments Lymphocytes (%) (Auto) (test code = 736-9) 33.6 18.0-39.1 [facility] CenterMonocytes (%) (Auto)2019-04-04 10:10:00* Test Item Value Reference Range Interpretation Comments Monocytes (%) (Auto) (test code = 5905-5) 7.1 4.4-11.3 [facility] CenterEosinophils (%) (Auto)2019-04-04 10:10:00 * Test Item Value Reference Range Interpretation Comments Eosinophils (%) (Auto) (test code = 713-8) 0.6 0.0-6.0 [facility] CenterBasophils (%) (Auto)2019-04-04 10:10:00* Test Item Value Reference Range Interpretation Comments Basophils (%) (Auto) (test code = 706-2) 0.5 0.0-1.0 [facility] CenterIM GRANULOCYTES %2019-04-04 10:10:00* Test Item Value Reference Range Interpretation Comments IM GRANULOCYTES % (test code = IM GRANULOCYTES %) 0.4 0.0- 1.0 [facility] CenterNeutrophils # (Auto)2019-04-04 10:10:00* Test Item Value Reference Range Interpretation Comments Neutrophils # (Auto) (test code = 751-8) 4.6 2.1-6.9 [facility] CenterLymphocytes # (Auto)2019-04-04 10:10:00* Test Item Value Reference Range Interpretation Comments Lymphocytes # (Auto) (test code = 33693-7) 2.7 1.0-3.2 [facility] CenterMonocytes # (Auto)2019-04-04 10:10:00* Test Item Value Reference Range Interpretation Comments Monocytes # (Auto) (test code = 742-7) 0.6 0.2-0.8 [facility] CenterEosinophils # (Auto)2019-04-04 10:10:00* Test Item Value Reference Range Interpretation Comments Eosinophils # (Auto) (test code = 711-2) 0.1 0.0-0.4 [facility] CenterBasophils # (Auto)2019-04-04 10:10:00* Test Item Value Reference Range Interpretation Comments Basophils # (Auto) (test code = 704-7) 0.0 0.0-0.1 [facility] CenterAbsolute Immature Granulocyte (auto 2019-04-04 10:10:00* Test Item Value Reference Range Interpretation Comments Absolute Immature Granulocyte (auto (jourdan t code = Absolute Immature Granulocyte (auto) 0.03 0-0.1 [facility] CenterFluoroscopic procedure less than one hour vmkghver2921-06-63 09:40:00* Test Item Value Reference Range Interpretation Comments Lactic Acid Level (test code = Lactic Acid Level) 1.2 0.5- 2.0 [facility] Centererum or plasma magnesium measurement (mass/volume)2019-04-04 09:40:00* Test Item Value Reference Range Interpretation Comments Magnesium Level (test code = 93144-9) 1.8 1.3-2.1 [facility] Centererum or plasma amylase measurement (enzymatic activity/volume)2019-04-04 09:40:00* Test Item Value Reference Range Interpretation Comments Amylase Level (test code = 1798-8) 90 25-125 [facility] CenterProthrombin time (PT) in platelet poor plasma by coagulation ygkjp9877-22-99 08:53:00* Test Item Value Reference Range Interpretation Comments Prothrombin Time (test code = 5902-2) 13.2 11.9-14.5 [facility] CenterINR in Platelet poor plasma by Coagulation ukriw8885-42-06 08:53:00* Test Item Value Reference Range Interpretation Comments Prothromb Time International Ratio (test code = 6301-6) 0.95 Oral Anticoagulant Therapy INR Values:1. Low Intensity Therapy 1.5 - 2.02 . Moderate Intensity Therapy 2.0 - 3.03. High Intensity Therapy(1) 2.5 - 3. 54. High Intensity Therapy(2) 3.0 - 4.05. Panic Value INR > 5.0 [facility] CenterActivated partial thromboplastin time (aPTT) in platelet poor plasma by coagulation ipdmw5032-20-06 08:53:00* Test Item Value Reference Range Interpretation Comments Activated Partial Thromboplast Time (test code = 80274-6) 29.7 23.8-35.5 [facility] CenterBlood tyccmjm7959-05-50 08:53:00* Test Item Value Reference Range Interpretation Comments Blood Culture (test code = 84256713) NO GROWTH AFTER 5 DAYS, FINAL REPORT [facility] CenterTise Transglutaminase IgA Bq9933-58-68 06:10:00* Test Item Value Reference Range Interpretation Comments Tissue Transglutaminase IgA Ab (test code = 25012-5) <2 0 -3 Negative 0 - 3 Weak Positive 4 - 10 Positive >10 Tissue Transglutaminase (tTG) has been identified as the endomysial antigen. Studies have demonstr- ated that endomysial IgA antibodies have over 99% specif icity for gluten sensitive enteropathy.[facility] Immunoglobulin V0795-93-76 06:10:00* Test Item Value Reference Range Interpretation Comments Immunoglobulin A (test code = 2458-8) 150 90-386 Performed at: - [employer] [id number] Director Funds Development: Lai Olson MD, Phone: [phone] at: - [facility] [address] [id number] Director: Alejo Malin MD, Ph one: [phone] Regional Medical CenterEndomysial IgA Antibody 2019-03-21 06:10:00* Test Item Value Reference Range Interpretation Comments Endomysial IgA Antibody (test code = 32620-4) Negative Negative [facility] CenterTisohiohealth [facility] Transglutaminase IgA Mi0351-53-51 06:10:00* Test Item Value Reference Range Interpretation Comments Tissue Transglutaminase IgA Ab (test code = 13870-7) <2 0 -3 Negative 0 - 3 Weak Positive 4 - 10 Positive >10 Tissue Transglutaminase (tTG) has been identified as the endomysial antigen. Studies have demonstr- ated that endomysial IgA antibodies have over 99% specif icity for gluten sensitive enteropathy.[facility] Immunoglobulin S3558-97-70 06:10:00* Test Item Value Reference Range Interpretation Comments Immunoglobulin A (test code = 2458-8) 150 90-386 Performed at: - [facility] [address] [id number] Director Funds Development: Lai Olson MD, Phone: [phone] at: - [facility] [address] [id number] Director: Alejo Malin MD, Ph one: [phone] Regional Medical CenterEndomysial IgA Antibody 2019-03-21 06:10:00* Test Item Value Reference Range Interpretation Comments Endomysial IgA Antibody (test code = 38031-4) Negative Negative [facility] CenterBlood Jlkviei9259-53-40 14:11:00* Test Item Value Reference Range Interpretation Comments Blood Culture (test code = 54182955) NO GROWTH AFTER 5 DAYS, FINAL REPORT [facility] CenterBlood Spouryr1840-60-29 14:11:00* Test Item Value Reference Range Interpretation Comments Blood Culture (test code = 50220829) NO GROWTH AFTER 5 DAYS, FINAL REPORT [facility] Folate Xbzraqscmp0038-85-64 20:40:00 * Test Item Value Reference Range Interpretation Comments RBC Folate Hemolysate (test code = 2282-2) 268.2 Not Estab. [facility] CenterHematocrit2019-11-15 20:40:00* Test Item Value Reference Range Interpretation Comments Hematocrit (test code = 4544-3) 29.1 37.5-51.0 L [facility] Folate Jokooncgoo7325-32-06 20:40:00 * Test Item Value Reference Range Interpretation Comments RBC Folate Hemolysate (test code = 2283-0) 922 >498 Performed at: [address] [id number] Director: Alejo Malin MD, Phone: [phone] Regional Medical CenterC-Reactive Rtwmwuw3492-88-55 20:40:00* Test Item Value Reference Range Interpretation Comments C-Reactive Protein (test code = 1988-5) 3 0-10 Performed at: [address] [id number] Director: Alejo Malin MD, Phone: [phone] Regional Medical CenterRBC Folate Frmnrtwccs1061-78-02 20:40:00* Test Item Value Reference Range Interpretation Comments RBC Folate Hemolysate (test code = 2282-2) 268.2 Not Estab. [facility] CenterHematocrit2019-11-15 20:40:00* Test Item Value Reference Range Interpretation Comments Hematocrit (test code = 4544-3) 29.1 37.5-51.0 L [facility] Folate Xcvxrfzheu9283-84-57 20:40:00 * Test Item Value Reference Range Interpretation Comments RBC Folate Hemolysate (test code = 2283-0) 922 >498 Performed at: [address] [id number] Director: Alejo Malin MD, Phone: [phone] Regional Medical CenterC-Reactive Wjjpafw5431-06-60 20:40:00* Test Item Value Reference Range Interpretation Comments C-Reactive Protein (test code = 1987-5) 3 0-10 Performed at: [address] [id number] Director: Alejo Malin MD, Phone: [phone] Regional Medical CenterBlood Pisfdlt6713-20-72 14:11:00* Test Item Value Reference Range Interpretation Comments Blood Culture (test code = 82609524) NO GROWTH AFTER 72 HOURS [facility] CenterDifferential Total Cells Counted 2019-03-16 10:54:00* Test Item Value Reference Range Interpretation Comments Differential Total Cells Counted (test code = Differen tial Total Cells Counted) 100 [facility] CenterNeutrophils % (Manual)2019-03-16 10:54:00 * Test Item Value Reference Range Interpretation Comments Neutrophils % (Manual) (test code = 45530-7) 42 40-74 [facility] CenterLymphocytes % (Manual)2019-03-16 10:54:00 * Test Item Value Reference Range Interpretation Comments Lymphocytes % (Manual) (test code = 737-7) 49 19-48 H [facility] CenterMonocytes % (Manual)2019-03-16 10:54:00* Test Item Value Reference Range Interpretation Comments Monocytes % (Manual) (test code = 744-3) 5 3.4-9.0 [facility] CenterReactive Byzonuxsqpu1759-79-88 10:54:00* Test Item Value Reference Range Interpretation Comments Reactive Lymphocytes (test code = 42014-9) 4 [facility] CenterPlatelet Zgpfglwd4585-79-29 10:54:00* Test Item Value Reference Range Interpretation Comments Platelet Estimate (test code = 78622-0) ADEQUATE [facility] CenterPlatelet Morphology Meaoivf8137-14-45 10:54:00* Test Item Value Reference Range Interpretation Comments Platelet Morphology Comment (test code = 33608-4) NORMAL [facility] CenterRed Cell Morphology Ktrgnvr8541-53-80 10:54:00* Test Item Value Reference Range Interpretation Comments Red Cell Morphology Comment (test code = 6742-1) NORMAL [facility] CenterDifferential Total Cells Counted 2019-03-16 10:54:00* Test Item Value Reference Range Interpretation Comments Differential Total Cells Counted (test code = Differen tial Total Cells Counted) 100 [facility] CenterNeutrophils % (Manual)2019-03-16 10:54:00 * Test Item Value Reference Range Interpretation Comments Neutrophils % (Manual) (test code = 84223-5) 42 40-74 [facility] CenterLymphocytes % (Manual)2019-03-16 10:54:00 * Test Item Value Reference Range Interpretation Comments Lymphocytes % (Manual) (test code = 737-7) 49 19-48 H [facility] CenterMonocytes % (Manual)2019-03-16 10:54:00* Test Item Value Reference Range Interpretation Comments Monocytes % (Manual) (test code = 744-3) 5 3.4-9.0 [facility] CenterReactive Qltwhkxcxmg3973-48-19 10:54:00* Test Item Value Reference Range Interpretation Comments Reactive Lymphocytes (test code = 67660-0) 4 [facility] CenterPlatelet Eukcigqg3065-63-71 10:54:00* Test Item Value Reference Range Interpretation Comments Platelet Estimate (test code = 72417-8) ADEQUATE [facility] CenterPlatelet Morphology Evwskfm6611-77-37 10:54:00* Test Item Value Reference Range Interpretation Comments Platelet Morphology Comment (test code = 52766-8) NORMAL [facility] CenterRed Cell Morphology Gwcgnfq0219-46-11 10:54:00* Test Item Value Reference Range Interpretation Comments Red Cell Morphology Comment (test code = 6742-1) NORMAL [facility] CenterDifferential Total Cells Counted 2019-03-16 10:54:00* Test Item Value Reference Range Interpretation Comments Differential Total Cells Counted (test code = Differclarice tial Total Cells Counted) 100 [facility] CenterNeutrophils % (Manual)2019-03-16 10:54:00 * Test Item Value Reference Range Interpretation Comments Neutrophils % (Manual) (test code = 53084-7) 42 40-74 [facility] CenterLymphocytes % (Manual)2019-03-16 10:54:00 * Test Item Value Reference Range Interpretation Comments Lymphocytes % (Manual) (test code = 737-7) 49 19-48 H [facility] CenterMonocytes % (Manual)2019-03-16 10:54:00* Test Item Value Reference Range Interpretation Comments Monocytes % (Manual) (test code = 744-3) 5 3.4-9.0 [facility] CenterReactive Brntgitzrdb6685-10-49 10:54:00* Test Item Value Reference Range Interpretation Comments Reactive Lymphocytes (test code = 53259-4) 4 [facility] CenterPlatelet Mfkseqxx4104-60-14 10:54:00* Test Item Value Reference Range Interpretation Comments Platelet Estimate (test code = 00690-3) ADEQUATE [facility] CenterPlatelet Morphology Ievefxr1008-28-92 10:54:00* Test Item Value Reference Range Interpretation Comments Platelet Morphology Comment (test code = 54272-3) NORMAL [facility] CenterRed Cell Morphology Oelsbyr8459-40-72 10:54:00* Test Item Value Reference Range Interpretation Comments Red Cell Morphology Comment (test code = 6742-1) [facility]odium Smfcl7995-62-10 08:19:00* Test Item Value Reference Range Interpretation Comments Sodium Level (test code = 2951-2) 138 136-145 [facility] CenterPotassium Yzkmf7700-97-29 08:19:00* Test Item Value Reference Range Interpretation Comments Potassium Level (test code = 2823-3) 3.3 3.5-5.1 L [facility] CenterChloride Biwqg4412-39-70 08:19:00* Test Item Value Reference Range Interpretation Comments Chloride Level (test code = 2075-0) 107 98-107 [facility] CenterCarbon Dioxide Gwfhe3969-10-06 08:19:00* Test Item Value Reference Range Interpretation Comments Carbon Dioxide Level (test code = 2028-9) 22 22-29 [facility] CenterAnion Iak6370-39-88 08:19:00* Test Item Value Reference Range Interpretation Comments Anion Gap (test code = 13469-6) 12.3 8-16 [facility] CenterBlood Urea Jxatonee7080-40-55 08:19:00* Test Item Value Reference Range Interpretation Comments Blood Urea Nitrogen (test code = 3094-0) < 5 7-26 L [facility] CenterCreatinine2019-11-14 08:19:00* Test Item Value Reference Range Interpretation Comments Creatinine (test code = 2160-0) 1.20 0.72-1.25 [facility] CenterBUN/Creatinine Pbtmq4734-23-99 08:19:00* Test Item Value Reference Range Interpretation Comments BUN/Creatinine Ratio (test code = 3097-3) 4 6-25 L [facility] CenterEstimat Glomerular Filtration Rate 2019-03-16 08:19:00* Test Item Value Reference Range Interpretation Comments Estimat Glomerular Filtration Rate (test code = 515448590) > 60 >60 Ranges were taken from the National Kidney Disease Education Program and the [facility] literature.Reference ranges:60 or greater: Quvqok09-44 ( for 3 consecutive months): Chronic kidney disease 15 or less: Kidney failureCarrollton Regional Medical CenterGlucose Ilgst9398-15-25 08:19:00* Test Item Value Reference Range Interpretation Comments Glucose Level (test code = PKJ5726) 92 74-118 [facility] CenterCalcium Ppfvt5525-52-46 08:19:00* Test Item Value Reference Range Interpretation Comments Calcium Level (test code = 64557-1) 9.0 8.4-10.2 [facility] Centerodium Dukqk3881-54-39 08:19:00* Test Item Value Reference Range Interpretation Comments Sodium Level (test code = 2951-2) 138 136-145 [facility] CenterPotassium Cgcuz3141-78-72 08:19:00* Test Item Value Reference Range Interpretation Comments Potassium Level (test code = 2823-3) 3.3 3.5-5.1 L [facility] CenterChloride Uoidu5281-84-07 08:19:00* Test Item Value Reference Range Interpretation Comments Chloride Level (test code = 2075-0) 107 98-107 [facility] CenterCarbon Dioxide Uhgdb7517-44-28 08:19:00* Test Item Value Reference Range Interpretation Comments Carbon Dioxide Level (test code = 2028-9) 22 22-29 [facility] CenterAnion Ybo2110-74-48 08:19:00* Test Item Value Reference Range Interpretation Comments Anion Gap (test code = 57801-4) 12.3 8-16 [facility] CenterBlood Urea Ndzpogld1916-55-82 08:19:00* Test Item Value Reference Range Interpretation Comments Blood Urea Nitrogen (test code = 3094-0) < 5 7-26 L [facility] CenterCreatinine2019-11-14 08:19:00* Test Item Value Reference Range Interpretation Comments Creatinine (test code = 2160-0) 1.20 0.72-1.25 [facility] CenterBUN/Creatinine Wtcmd9187-82-33 08:19:00* Test Item Value Reference Range Interpretation Comments BUN/Creatinine Ratio (test code = 3097-3) 4 6-25 L [facility] CenterEstimat Glomerular Filtration Rate 2019-03-16 08:19:00* Test Item Value Reference Range Interpretation Comments Estimat Glomerular Filtration Rate (test code = 731319000) > 60 >60 Ranges were taken from the National Kidney Disease Education Program and the [facility] literature.Reference ranges:60 or greater: Zvbtds76-75 ( for 3 consecutive months): Chronic kidney disease 15 or less: Kidney failureCarrollton Regional Medical CenterGlucose Ygcpg4604-58-58 08:19:00* Test Item Value Reference Range Interpretation Comments Glucose Level (test code = EBF6233) 92 74-118 [facility] CenterCalcium Eycui8258-85-25 08:19:00* Test Item Value Reference Range Interpretation Comments Calcium Level (test code = 84906-1) 9.0 8.4-10.2 [facility] CenterWhite Blood Kkjlf8965-41-92 05:34:00* Test Item Value Reference Range Interpretation Comments White Blood Count (test code = 6690-2) 3.70 4.8-10.8 L [facility] CenterRed Blood Auvdw7924-99-06 05:34:00* Test Item Value Reference Range Interpretation Comments Red Blood Count (test code = 789-8) 3.06 4.3-5.7 L [facility] CenterHemoglobin2019-11-14 05:34:00* Test Item Value Reference Range Interpretation Comments Hemoglobin (test code = 54600-4) 9.9 14.0-18.0 L [facility] CenterHematocrit2019-11-14 05:34:00* Test Item Value Reference Range Interpretation Comments Hematocrit (test code = 4544-3) 29.2 38.2-49.6 L [facility] CenterMean Corpuscular Thxoib1693-93-79 05:34:00* Test Item Value Reference Range Interpretation Comments Mean Corpuscular Volume (test code = 787-2) 95.4 81-99 [facility] CenterMean Corpuscular Xhsrusxpvv5364-11-43 05:34:00* Test Item Value Reference Range Interpretation Comments Mean Corpuscular Hemoglobin (test code = 785-6) 32.4 28-32 H [facility] CenterMean Corpuscular Hemoglobin Concent 2019-03-16 05:34:00* Test Item Value Reference Range Interpretation Comments Mean Corpuscular Hemoglobin Concent (test code = 786-4) 33.9 31-35 [facility] CenterRed Cell Distribution Riube7675-45-54 05:34:00* Test Item Value Reference Range Interpretation Comments Red Cell Distribution Width (test code = 68966-1) 11.7 11.7 -14.4 [facility] CenterPlatelet Qojsu3871-72-73 05:34:00* Test Item Value Reference Range Interpretation Comments Platelet Count (test code = 777-3) 174 140-360 [facility] CenterNeutrophils (%) (Auto)2019-03-16 05:34:00 * Test Item Value Reference Range Interpretation Comments Neutrophils (%) (Auto) (test code = 57995-5) 41.6 38.7-80.0 [facility] CenterLymphocytes (%) (Auto)2019-03-16 05:34:00 * Test Item Value Reference Range Interpretation Comments Lymphocytes (%) (Auto) (test code = 736-9) 47.6 18.0-39.1 H [facility] CenterMonocytes (%) (Auto)2019-03-16 05:34:00* Test Item Value Reference Range Interpretation Comments Monocytes (%) (Auto) (test code = 5905-5) 8.4 4.4-11.3 [facility] CenterEosinophils (%) (Auto)2019-03-16 05:34:00 * Test Item Value Reference Range Interpretation Comments Eosinophils (%) (Auto) (test code = 713-8) 1.6 0.0-6.0 [facility] CenterBasophils (%) (Auto)2019-03-16 05:34:00* Test Item Value Reference Range Interpretation Comments Basophils (%) (Auto) (test code = 706-2) 0.3 0.0-1.0 [facility] CenterIM GRANULOCYTES %2019-03-16 05:34:00* Test Item Value Reference Range Interpretation Comments IM GRANULOCYTES % (test code = IM GRANULOCYTES %) 0.5 0.0- 1.0 [facility] CenterNeutrophils # (Auto)2019-03-16 05:34:00* Test Item Value Reference Range Interpretation Comments Neutrophils # (Auto) (test code = 751-8) 1.5 2.1-6.9 L [facility] CenterLymphocytes # (Auto)2019-03-16 05:34:00* Test Item Value Reference Range Interpretation Comments Lymphocytes # (Auto) (test code = 77639-7) 1.8 1.0-3.2 [facility] CenterMonocytes # (Auto)2019-03-16 05:34:00* Test Item Value Reference Range Interpretation Comments Monocytes # (Auto) (test code = 742-7) 0.3 0.2-0.8 [facility] CenterEosinophils # (Auto)2019-03-16 05:34:00* Test Item Value Reference Range Interpretation Comments Eosinophils # (Auto) (test code = 711-2) 0.1 0.0-0.4 [facility] CenterBasophils # (Auto)2019-03-16 05:34:00* Test Item Value Reference Range Interpretation Comments Basophils # (Auto) (test code = 704-7) 0.0 0.0-0.1 [facility] CenterAbsolute Immature Granulocyte (auto 2019-03-16 05:34:00* Test Item Value Reference Range Interpretation Comments Absolute Immature Granulocyte (auto (jourdan t code = Absolute Immature Granulocyte (auto) 0.02 0-0.1 [facility] CenterWhite Blood Leirk3004-08-00 05:34:00* Test Item Value Reference Range Interpretation Comments White Blood Count (test code = 6690-2) 3.70 4.8-10.8 L [facility] CenterRed Blood Whohi3555-33-69 05:34:00* Test Item Value Reference Range Interpretation Comments Red Blood Count (test code = 789-8) 3.06 4.3-5.7 L [facility] CenterHemoglobin2019-11-14 05:34:00* Test Item Value Reference Range Interpretation Comments Hemoglobin (test code = 60878-8) 9.9 14.0-18.0 L [facility] CenterHematocrit2019-11-14 05:34:00* Test Item Value Reference Range Interpretation Comments Hematocrit (test code = 4544-3) 29.2 38.2-49.6 L [facility] CenterMean Corpuscular Tatdxk8006-16-56 05:34:00* Test Item Value Reference Range Interpretation Comments Mean Corpuscular Volume (test code = 787-2) 95.4 81-99 [facility] CenterMean Corpuscular Abizfrrtia2754-98-39 05:34:00* Test Item Value Reference Range Interpretation Comments Mean Corpuscular Hemoglobin (test code = 785-6) 32.4 28-32 H [facility] CenterMean Corpuscular Hemoglobin Concent 2019-03-16 05:34:00* Test Item Value Reference Range Interpretation Comments Mean Corpuscular Hemoglobin Concent (test code = 786-4) 33.9 31-35 [facility] CenterRed Cell Distribution Uosxd4735-68-60 05:34:00* Test Item Value Reference Range Interpretation Comments Red Cell Distribution Width (test code = 93030-9) 11.7 11.7 -14.4 [facility] CenterPlatelet Wertj2609-60-38 05:34:00* Test Item Value Reference Range Interpretation Comments Platelet Count (test code = 777-3) 174 140-360 [facility] CenterNeutrophils (%) (Auto)2019-03-16 05:34:00 * Test Item Value Reference Range Interpretation Comments Neutrophils (%) (Auto) (test code = 58889-0) 41.6 38.7-80.0 [facility] CenterLymphocytes (%) (Auto)2019-03-16 05:34:00 * Test Item Value Reference Range Interpretation Comments Lymphocytes (%) (Auto) (test code = 736-9) 47.6 18.0-39.1 H [facility] CenterMonocytes (%) (Auto)2019-03-16 05:34:00* Test Item Value Reference Range Interpretation Comments Monocytes (%) (Auto) (test code = 5905-5) 8.4 4.4-11.3 [facility] CenterEosinophils (%) (Auto)2019-03-16 05:34:00 * Test Item Value Reference Range Interpretation Comments Eosinophils (%) (Auto) (test code = 713-8) 1.6 0.0-6.0 [facility] CenterBasophils (%) (Auto)2019-03-16 05:34:00* Test Item Value Reference Range Interpretation Comments Basophils (%) (Auto) (test code = 706-2) 0.3 0.0-1.0 [facility] CenterIM GRANULOCYTES %2019-03-16 05:34:00* Test Item Value Reference Range Interpretation Comments IM GRANULOCYTES % (test code = IM GRANULOCYTES %) 0.5 0.0- 1.0 [facility] CenterNeutrophils # (Auto)2019-03-16 05:34:00* Test Item Value Reference Range Interpretation Comments Neutrophils # (Auto) (test code = 751-8) 1.5 2.1-6.9 L [facility] CenterLymphocytes # (Auto)2019-03-16 05:34:00* Test Item Value Reference Range Interpretation Comments Lymphocytes # (Auto) (test code = 58966-5) 1.8 1.0-3.2 [facility] CenterMonocytes # (Auto)2019-03-16 05:34:00* Test Item Value Reference Range Interpretation Comments Monocytes # (Auto) (test code = 742-7) 0.3 0.2-0.8 [facility] CenterEosinophils # (Auto)2019-03-16 05:34:00* Test Item Value Reference Range Interpretation Comments Eosinophils # (Auto) (test code = 711-2) 0.1 0.0-0.4 [facility] CenterBasophils # (Auto)2019-03-16 05:34:00* Test Item Value Reference Range Interpretation Comments Basophils # (Auto) (test code = 704-7) 0.0 0.0-0.1 [facility] CenterAbsolute Immature Granulocyte (auto 2019-03-16 05:34:00* Test Item Value Reference Range Interpretation Comments Absolute Immature Granulocyte (auto (jourdan t code = Absolute Immature Granulocyte (auto) 0.02 0-0.1 [facility] CenterFluoroscopic procedure less than one hour jzprjrkq3990-31-43 04:00:00* Test Item Value Reference Range Interpretation Comments Differential Total Cells Counted (test code = Differclarice tial Total Cells Counted) 100 [facility] blood neutrophils/100 leukocytes 2019-03-16 04:00:00* Test Item Value Reference Range Interpretation Comments Neutrophils % (Manual) (test code = 06345-9) 42 40-74 [facility] blood lymphocytes/100 leukocytes 2019-03-16 04:00:00* Test Item Value Reference Range Interpretation Comments Lymphocytes % (Manual) (test code = 737-7) 49 19-48 [facility] blood monocytes/100 leukocytes 2019-03-16 04:00:00* Test Item Value Reference Range Interpretation Comments Monocytes % (Manual) (test code = 744-3) 5 3.4-9.0 [facility] CenterBlnew [facility] lymphocytes variant count (number/volume)2019-03-16 04:00:00* Test Item Value Reference Range Interpretation Comments Reactive Lymphocytes (test code = 45267-9) 4 [facility] CenterBlnew [facility] medical [facility] platelets count by estimate (number/volume)2019-03-16 04:00:00* Test Item Value Reference Range Interpretation Comments Platelet Estimate (test code = 02062-1) ADEQUATE [facility] CenterPlatelet rutmwjqzmw4247-73-63 04:00:00* Test Item Value Reference Range Interpretation Comments Platelet Morphology Comment (test code = 68029-7) NORMAL [facility] CenterRBC tfdxlyxhzm6970-55-63 04:00:00* Test Item Value Reference Range Interpretation Comments Red Cell Morphology Comment (test code = 6742-1) NORMAL [facility] CenterVitamin B12 Iocxs5196-86-93 21:54:00* Test Item Value Reference Range Interpretation Comments Vitamin B12 Level (test code = 19015-4) 605 213-816 [facility] CenterVitamin B12 Hwqap3099-75-87 21:54:00* Test Item Value Reference Range Interpretation Comments Vitamin B12 Level (test code = 89665-8) 605 213-816 [facility] CenterVitamin B12 Nahgj2796-40-58 21:54:00* Test Item Value Reference Range Interpretation Comments Vitamin B12 Level (test code = 39303-9) 605 213-816 [facility] CenterFerritin2019-11-13 21:44:00* Test Item Value Reference Range Interpretation Comments Ferritin (test code = 2276-4) 387.29 21.81-274.66 H [facility] CenterThyroid Stimulating Hormone (TSH) 2019-03-15 21:44:00* Test Item Value Reference Range Interpretation Comments Thyroid Stimulating Hormone (TSH) (test code = 89519-1) 2.573 0.350-4.940 [facility] CenterFerritin2019-11-13 21:44:00* Test Item Value Reference Range Interpretation Comments Ferritin (test code = 2276-4) 387.29 21.81-274.66 H [facility] CenterThyroid Stimulating Hormone (TSH) 2019-03-15 21:44:00* Test Item Value Reference Range Interpretation Comments Thyroid Stimulating Hormone (TSH) (test code = 43231-7) 2.573 0.350-4.940 [facility] CenterFerritin2019-11-13 21:44:00* Test Item Value Reference Range Interpretation Comments Ferritin (test code = 2276-4) 387.29 21.81-274.66 H [facility] CenterThyroid Stimulating Hormone (TSH) 2019-03-15 21:44:00* Test Item Value Reference Range Interpretation Comments Thyroid Stimulating Hormone (TSH) (test code = 84440-6) 2.573 0.350-4.940 [facility] CenterErythrocyte Sedimentation Iofd4741-38-77 21:33:00* Test Item Value Reference Range Interpretation Comments Erythrocyte Sedimentation Rate (test code = 4537-7) 62 0- 13 H [facility] CenterErythrocyte Sedimentation Xmyd2612-94-65 21:33:00* Test Item Value Reference Range Interpretation Comments Erythrocyte Sedimentation Rate (test code = 4537-7) 62 0- 13 H [facility] CenterErythrocyte Sedimentation Grow8213-11-53 21:33:00* Test Item Value Reference Range Interpretation Comments Erythrocyte Sedimentation Rate (test code = 4537-7) 62 0- 13 H [facility] CenterIron Fcuuv5102-58-18 21:22:00* Test Item Value Reference Range Interpretation Comments Iron Level (test code = 2498-4) 69 65-175 [facility] CenterTotal Iron Binding Kyonzdto5960-06-62 21:22:00* Test Item Value Reference Range Interpretation Comments Total Iron Binding Capacity (test code = 2500-7) 256 261-4 78 L [facility] CenterPercent Iron Kyvqpwamwp7300-24-06 21:22:00* Test Item Value Reference Range Interpretation Comments Percent Iron Saturation (test code = 2502-3) 27 15-50 [facility] CenterTransferrin2019-11-13 21:22:00* Test Item Value Reference Range Interpretation Comments Transferrin (test code = 3034-6) 183 174-364 [facility] CenterAmylase Kqahz8682-17-28 21:22:00* Test Item Value Reference Range Interpretation Comments Amylase Level (test code = 1798-8) 68 25-125 [facility] CenterLipase2019-11-13 21:22:00* Test Item Value Reference Range Interpretation Comments Lipase (test code = 3040-3) 14 878 [facility]2019-11-13 21:22:00* Test Item Value Reference Range Interpretation Comments Iron Level (test code = 2498-4) 69 65-175 [facility] CenterTotal Iron Binding Kachjkmc5795-74-79 21:22:00* Test Item Value Reference Range Interpretation Comments Total Iron Binding Capacity (test code = 2500-7) 256 261-4 78 L [facility] CenterPercent Iron Lsmfyrgrkj8406-67-64 21:22:00* Test Item Value Reference Range Interpretation Comments Percent Iron Saturation (test code = 2502-3) 50 [facility] CenterTransferrin2019-11-13 21:22:00* Test Item Value Reference Range Interpretation Comments Transferrin (test code = 3034-6) 183 174-364 [facility] CenterAmylMission Hospital McDowellGaoct1750-87-56 21:22:00* Test Item Value Reference Range Interpretation Comments Amylase Level (test code = 1798-8) 68 25-125 [facility]2019-11-13 21:22:00* Test Item Value Reference Range Interpretation Comments Lipase (test code = 3040-3) 14 78 [facility]2019-11-13 21:22:00* Test Item Value Reference Range Interpretation Comments Iron Level (test code = 2498-4) 69 65-175 [facility] CenterTotim[facility]og[facility] Iron Binding Fnqwodnr4528-63-06 21:22:00* Test Item Value Reference Range Interpretation Comments Total Iron Binding Capacity (test code = 2500-7) 256 261-4 78 L [facility] CenterPercent Iron Zujgsdyrzq7359-64-19 21:22:00* Test Item Value Reference Range Interpretation Comments Percent Iron Saturation (test code = 2502-3) 27 15-50 [facility] CenterTransferrin2019-11-13 21:22:00* Test Item Value Reference Range Interpretation Comments Transferrin (test code = 3034-6) 183 174-364 [facility] CenterPercent Reticulocyte Ojjnc9186-50-83 21:04:00* Test Item Value Reference Range Interpretation Comments Percent Reticulocyte Count (test code = 28142-5) 1.3 0.8-2 .2 [facility] CenterPercent Reticulocyte Alonx1655-45-34 21:04:00* Test Item Value Reference Range Interpretation Comments Percent Reticulocyte Count (test code = 59377-3) 1.3 0.8-2 .2 [facility] CenterPercent Reticulocyte Mwvkt0763-74-36 21:04:00* Test Item Value Reference Range Interpretation Comments Percent Reticulocyte Count (test code = 16276-9) 1.3 0.8-2 .2 [facility] CenterErythrocyte sedimentation rate by Westergren jtaurn6172-41-52 19:20:00* Test Item Value Reference Range Interpretation Comments Erythrocyte Sedimentation Rate (test code = 4537-7) 62 0- 13 [facility] CenterAutomated reticulocyte count as percentage of total cdjkbqurgmub2341-13-57 19:20:00* Test Item Value Reference Range Interpretation Comments Percent Reticulocyte Count (test code = 91279-1) 1.3 0.8-2 .2 [facility]ererum or plasma iron measurement (mass/volume)2019-03-15 19:20:00* Test Item Value Reference Range Interpretation Comments Iron Level (test code = 2498-4) 69 65-175 [facility] Centererum or plasma iron binding capacity measurement (mass/volume)2019-03-15 19:20:00* Test Item Value Reference Range Interpretation Comments Total Iron Binding Capacity (test code = 2500-7) 256 261-4 78 [facility] Centererum or plasma iron saturation measurement (mass fraction)2019-03-15 19:20:00* Test Item Value Reference Range Interpretation Comments Percent Iron Saturation (test code = 2502-3) 27 15-50 [facility] Centererum or plasma transferrin measurement (mass/volume)2019-03-15 19:20:00* Test Item Value Reference Range Interpretation Comments Transferrin (test code = 3034-6) 183 174-364 [facility] Centererum or plasma ferritin measurement (mass/volume)2019-03-15 19:20:00* Test Item Value Reference Range Interpretation Comments Ferritin (test code = 2276-4) 387.29 21.81-274.66 [facility] CenterBlood cobalamin (vitamin B12) measurement (mass/volume)2019-03-15 19:20:00* Test Item Value Reference Range Interpretation Comments Vitamin B12 Level (test code = 45981-8) 605 213816 [facility] Centererum or plasma thyrotropin measurement by detection limit <= 0.005 miu/l (units/volume)2019-03-15 19:20:00* Test Item Value Reference Range Interpretation Comments Thyroid Stimulating Hormone (TSH) (test code = 74840-0) 2.573 0.350-4.940 [facility] CenterBlood folate measurement (mass/volume) 2019-03-15 19:20:00* Test Item Value Reference Range Interpretation Comments RBC Folate Hemolysate (test code = 2282-2) 268.2 Not Estab. [facility] CenterAutomated blood hematocrit (volume fraction)2019-03-15 19:20:00* Test Item Value Reference Range Interpretation Comments Hematocrit (test code = 4544-3) 29.1 37.5-51.0 [facility] CenterErythrocyte folate measurement (mass/volume)2019-03-15 19:20:00* Test Item Value Reference Range Interpretation Comments Red Blood Cell Folate (test code = 2283-0) 922 >498 Performed at: - [address] [id number] Director: Alejo Malin MD, Phone: [phone] Regional Medical Centererum tissue transglutaminase IgA antibody owzzhwwig6666-89-13 19:20:00* Test Item Value Reference Range Interpretation Comments Tissue Transglutaminase IgA Ab (test code = 07646-4) <2 0 -3 Negative 0 - 3 Weak Positive 4 - 10 Positive >10 Tissue Transglutaminase (tTG) has been identified as the endomysial antigen. Studies have demonstr- ated that endomysial IgA antibodies have over 99% specif icity for gluten sensitive enteropathy.[facility] Serum or plasma IgA measurement (mass/volume)2019-03-15 19:20:00* Test Item Value Reference Range Interpretation Comments Immunoglobulin A (test code = 2458-8) 150 90-386 Performed at: [facility] [address] [id number] Director Funds Development: Lai Olson MD, Phone: [phone] at: [facility] [address] [id number] Director: Alejo Malin MD, Ph one: [phone] Regional Medical Centererum endomysium IgA antibody hmewuynay3303-56-04 19:20:00* Test Item Value Reference Range Interpretation Comments Endomysial IgA Antibody (test code = 35415-9) Negative Negative [facility] Centererum or plasma C reactive protein measurement (mass/volume)2019-03-15 19:20:00* Test Item Value Reference Range Interpretation Comments C-Reactive Protein (test code = 1988-5) 3 0-10 Performed at: [facility] [address] [id number] Director: Alejo Malin MD, Phone: [phone] Regional Medical CenterTotal Rjfwozoyx2687-32-87 12:59:00* Test Item Value Reference Range Interpretation Comments Total Bilirubin (test code = 1975-2) 0.4 0.2-1.2 [facility] CenterAspartate Amino Transf (AST/SGOT) 2019-03-14 12:59:00* Test Item Value Reference Range Interpretation Comments Aspartate Amino Transf (AST/SGOT) (test code = Aspartate Amino Transf (AST/SGOT)) 25 5-34 [facility] CenterAlanine Aminotransferase (ALT/SGPT) 2019-03-14 12:59:00* Test Item Value Reference Range Interpretation Comments Alanine Aminotransferase (ALT/SGPT) (test code = 1742-6) 24 0-55 [facility] CenterTotal Frnthvh5892-09-90 12:59:00* Test Item Value Reference Range Interpretation Comments Total Protein (test code = 2885-2) 7.2 6.5-8.1 [facility] CenterAlbumin2019-11-12 12:59:00* Test Item Value Reference Range Interpretation Comments Albumin (test code = 1751-7) 3.5 3.5-5.0 [facility] CenterGlobulin2019-11-12 12:59:00* Test Item Value Reference Range Interpretation Comments Globulin (test code = 37621-0) 3.7 2.3-3.5 H [facility] CenterAlbumin/Globulin Zswjn0472-99-92 12:59:00 * Test Item Value Reference Range Interpretation Comments Albumin/Globulin Ratio (test code = 1759-0) 0.9 0.8-2.0 [facility] CenterAlkaline Idmvrcavjvc5711-25-76 12:59:00* Test Item Value Reference Range Interpretation Comments Alkaline Phosphatase (test code = 6768-6) 69 40-150 [facility] CenterTotal Xjcmtmdly2014-86-76 12:59:00* Test Item Value Reference Range Interpretation Comments Total Bilirubin (test code = 1975-2) 0.4 0.2-1.2 [facility] CenterAspartate Amino Transf (AST/SGOT) 2019-03-14 12:59:00* Test Item Value Reference Range Interpretation Comments Aspartate Amino Transf (AST/SGOT) (test code = Aspartate Amino Transf (AST/SGOT)) 25 5-34 [facility] CenterAlanine Aminotransferase (ALT/SGPT) 2019-03-14 12:59:00* Test Item Value Reference Range Interpretation Comments Alanine Aminotransferase (ALT/SGPT) (test code = 1742-6) 24 0-55 [facility] CenterTotal Gitfyjs0094-53-73 12:59:00* Test Item Value Reference Range Interpretation Comments Total Protein (test code = 2885-2) 7.2 6.5-8.1 [facility] CenterAlbumin2019-11-12 12:59:00* Test Item Value Reference Range Interpretation Comments Albumin (test code = 1751-7) 3.5 3.5-5.0 [facility] CenterGlobulin2019-11-12 12:59:00* Test Item Value Reference Range Interpretation Comments Globulin (test code = 10238-9) 3.7 2.3-3.5 H [facility] CenterAlbumin/Globulin Jcqzc9356-22-78 12:59:00 * Test Item Value Reference Range Interpretation Comments Albumin/Globulin Ratio (test code = 1759-0) 0.9 0.8-2.0 [facility] CenterAlkaline Wauanhdkdvc3256-39-12 12:59:00* Test Item Value Reference Range Interpretation Comments Alkaline Phosphatase (test code = 6768-6) 69 40-150 [facility] CenterCT ABDOMEN/PELVIS AH4324-57-60 12:24:00 [facility] [address] [address] Patient Name: QUYEN KIM MR #: [id number] : 1980 Age/Sex: 38/M Req #: [id number] Adm Physician: Ordered by: WESLY SPICER DO Report #: [id number] Location: ER Room/Bed: Procedure: [id number] CT/CT ABDOMEN/PELVIS WO Exam Date: 03/14/19 Exam [...] (Manual) (test code = 714-6) 3 0-7 [facility] CenterMetamyelocytes %2019-03-13 21:32:00* Test Item Value Reference Range Interpretation Comments Metamyelocytes % (test code = 740-1) 1 0-0 H [facility] CenterAnisocytosis2019-11-11 21:32:00* Test Item Value Reference Range Interpretation Comments Anisocytosis (test code = 702-1) SLIGHT [facility] CenterHow[place] Ejjllf4716-48-93 21:32:00* Test Item Value Reference Range Interpretation Comments [place] Bodies (test code = 7793-3) FEW [facility] CenterEosinophils % (Manual)2019-03-13 21:32:00 * Test Item Value Reference Range Interpretation Comments Eosinophils % (Manual) (test code = 714-6) 3 0-7 [facility] CenterMetamyelocytes %2019-03-13 21:32:00* Test Item Value Reference Range Interpretation Comments Metamyelocytes % (test code = 740-1) 1 0-0 H [facility] CenterAnisocytosis2019-11-11 21:32:00* Test Item Value Reference Range Interpretation Comments Anisocytosis (test code = 702-1) SLIGHT [facility] CenterHow[place] Ukaxaj4209-38-79 21:32:00* Test Item Value Reference Range Interpretation Comments [place] Bodies (test code = 7793-3) FEW [facility] CenterEosinophils % (Manual)2019-03-13 21:32:00 * Test Item Value Reference Range Interpretation Comments Eosinophils % (Manual) (test code = 714-6) 3 0-7 [facility] CenterMetamyelocytes %2019-03-13 21:32:00* Test Item Value Reference Range Interpretation Comments Metamyelocytes % (test code = 740-1) 1 0-0 H [facility] CenterAnisocytosis2019-11-11 21:32:00* Test Item Value Reference Range Interpretation Comments Anisocytosis (test code = 702-1) SLIGHT [facility] CenterHow[place] Nnbgdp2665-88-56 21:32:00* Test Item Value Reference Range Interpretation Comments [place] Bodies (test code = 7793-3) [facility] KNY5277-97-36 16:21:00* Test Item Value Reference Range Interpretation Comments Urine WBC (test code = 5821-4) NONE 0-5 [facility] CenterUrine JJT9228-49-56 16:21:00* Test Item Value Reference Range Interpretation Comments Urine RBC (test code = 46932-8) 6-10 0-5 H [facility] CenterUrine Dbvglerv3814-53-02 16:21:00* Test Item Value Reference Range Interpretation Comments Urine Bacteria (test code = 95388-4) NONE NONE [facility] CenterUrine Epithelial Qkvml2126-13-45 16:21:00 * Test Item Value Reference Range Interpretation Comments Urine Epithelial Cells (test code = 41181-9) NONE NONE [facility] Calcium Carbonate Crystals 2019-03-13 16:21:00* Test Item Value Reference Range Interpretation Comments Urine Calcium Carbonate Crystals (test code = 5773-7) MANY NONE H [facility] FSN0010-77-00 16:21:00* Test Item Value Reference Range Interpretation Comments Urine WBC (test code = 5821-4) NONE 0-5 [facility] UPS5312-54-58 16:21:00* Test Item Value Reference Range Interpretation Comments Urine RBC (test code = 08848-1) 6-10 0-5 H [facility] Awcrengk8031-37-15 16:21:00* Test Item Value Reference Range Interpretation Comments Urine Bacteria (test code = 73312-5) NONE NONE [facility] Epithelial Msbsz5507-67-90 16:21:00 * Test Item Value Reference Range Interpretation Comments Urine Epithelial Cells (test code = 44780-3) NONE NONE [facility] Calcium Carbonate Crystals 2019-03-13 16:21:00* Test Item Value Reference Range Interpretation Comments Urine Calcium Carbonate Crystals (test code = 5773-7) MANY NONE H [facility] YVS4148-18-93 16:21:00* Test Item Value Reference Range Interpretation Comments Urine WBC (test code = 5821-4) NONE 0-5 [facility] LLG8225-25-14 16:21:00* Test Item Value Reference Range Interpretation Comments Urine RBC (test code = 87491-5) 6-10 0-5 H [facility] Iqkjlstr1296-97-19 16:21:00* Test Item Value Reference Range Interpretation Comments Urine Bacteria (test code = 21343-6) NONE NONE [facility] Epithelial Pvksd5962-85-48 16:21:00 * Test Item Value Reference Range Interpretation Comments Urine Epithelial Cells (test code = 52694-0) NONE NONE [facility] Calcium Carbonate Crystals 2019-03-13 16:21:00* Test Item Value Reference Range Interpretation Comments Urine Calcium Carbonate Crystals (test code = 5773-7) MANY NONE H [facility] CenterUrine Calcium Carbonate Crystals 2019-03-13 16:21:00* Test Item Value Reference Range Interpretation Comments Urine Calcium Carbonate Crystals (test code = 5773-7) MANY NONE H [facility] CenterCT ABDOMEN/PELVIS K0109-39-88 16:17:00 [facility] [address] [address] Patient Name: QUYEN KIM MR #: [id number] : 1980 Age/Sex: 38/M Req #: [id number] Adm Physician: Ordered by: PAULINE DAMON MD, MD Report #: [id number] Location: ER Room/Bed: Procedure: [id number] C T/CT ABDOMEN/PELVIS W Exam Date: 03/13/19 [...] COPY TO : PAULINE DAMON Urine Opiates Zsyalk5399-83-68 16:13:00* Test Item Value Reference Range Interpretation Comments Urine Opiates Screen (test code = 70877-3) POSITIVE NEGATIVE H ALL TESTS PERFORMED MANUALLY ON [employer] TOX/SEE TEST This test provides only a sc reen. Positive results should be repeated by a confirmatory test.[facility] CenterUrine Barbiturates Ycosxa1990-76-13 16:13:00* Test Item Value Reference Range Interpretation Comments Urine Barbiturates Screen (test code = 163235456) NEGATIVE NEGA TIVE [facility] CenterUrine Phencyclidine Kzjyqo5033-87-38 16:13:00* Test Item Value Reference Range Interpretation Comments Urine Phencyclidine Screen (test code = 04365-6) NEGATIVE NEGAT ANGY [facility] CenterUrine Amphetamines Rqbhmv6950-15-52 16:13:00* Test Item Value Reference Range Interpretation Comments Urine Amphetamines Screen (test code = 86102-2) NEGATIVE NEGATI VE [facility] CenterUrine Methamphetamines Zdkhjl0606-76-09 16:13:00* Test Item Value Reference Range Interpretation Comments Urine Methamphetamines Screen (test code = Urine Metha mphetamines Screen) NEGATIVE NEGATIVE [facility] CenterUrine Benzodiazepines Wcfihq4694-51-12 16:13:00* Test Item Value Reference Range Interpretation Comments Urine Benzodiazepines Screen (test code = 50983-9) NEGATIVE NEG ATIVE [facility] CenterUrine Cocaine Onydpz6155-88-83 16:13:00* Test Item Value Reference Range Interpretation Comments Urine Cocaine Screen (test code = 3398-5) NEGATIVE NEGATIVE [facility] CenterUrine Cannabinoids Ckahbz8106-76-16 16:13:00* Test Item Value Reference Range Interpretation Comments Urine Cannabinoids Screen (test code = 07530-4) POSITIVE NEGATI VE H THESE RESULTS ARE FOR MEDICAL TREATMENT ONLYTHIS REPORT CONTAINS UNCONFIR MED SCREENING RESULTS*POSITIVE RESULTS WILL BE CONFIRMED BY REFERENCE LAB UPON R EQUEST CUT-OFFDRUG CLASS CONCENTRATION ng/mLAmphetamines 1000Methamphetamines 1000Cocaine 300Opiate 300Phencyc lidine 25Cannabinoid 50Barbiturates 300Benzodiazepine 300Methadone 300 This test p rovides only a screen. Positive results should be repeated by a confirmatory jourdan t.[facility] CenterUrine Methadone Gucjcs9468-94-40 16:13:00* Test Item Value Reference Range Interpretation Comments Urine Methadone Screen (test code = 79152-7) NEGATIVE NEGATIVE THESE RESULTS ARE FOR MEDICAL TREATMENT ONLYTHIS REPORT CONTAINS UNCONFIR MED SCREENING RESULTS*POSITIVE RESULTS WILL BE CONFIRMED BY REFERENCE LAB UPON R EQUEST CUT-OFFDRUG CLASS CONCENTRATION ng/mLAmphetamines 1000Methamphetamines 1000Cocaine Metabolite 300Opiate 300Phencyc lidine 25Cannabinoid 50Barbiturates 300Benzodiazepine 300Methadone 300[facility] Opiates Xbdrai1979-74-37 16:13:00* Test Item Value Reference Range Interpretation Comments Urine Opiates Screen (test code = 53090-7) POSITIVE NEGATIVE H ALL TESTS PERFORMED MANUALLY ON [employer] TOX/SEE TEST This test provides only a sc reen. Positive results should be repeated by a confirmatory test.[facility] CenterUrine Barbiturates Vtswah2210-90-87 16:13:00* Test Item Value Reference Range Interpretation Comments Urine Barbiturates Screen (test code = 684056647) NEGATIVE NEGA TIVE [facility] CenterUrine Phencyclidine Oqxbqv8819-14-02 16:13:00* Test Item Value Reference Range Interpretation Comments Urine Phencyclidine Screen (test code = 07856-0) NEGATIVE NEGAT ANGY [facility] CenterUrine Amphetamines Yuzriz4776-26-69 16:13:00* Test Item Value Reference Range Interpretation Comments Urine Amphetamines Screen (test code = 22001-4) NEGATIVE NEGATI VE [facility] CenterUrine Methamphetamines Jkuctz9957-60-55 16:13:00* Test Item Value Reference Range Interpretation Comments Urine Methamphetamines Screen (test code = Urine Metha mphetamines Screen) NEGATIVE NEGATIVE [facility] CenterUrine Benzodiazepines Hgczvq8675-93-33 16:13:00* Test Item Value Reference Range Interpretation Comments Urine Benzodiazepines Screen (test code = 33335-1) NEGATIVE NEG ATIVE [facility] CenterUrine Cocaine Cghwje4282-92-14 16:13:00* Test Item Value Reference Range Interpretation Comments Urine Cocaine Screen (test code = 3398-5) NEGATIVE NEGATIVE [facility] CenterUrine Cannabinoids Jezmne4779-86-48 16:13:00* Test Item Value Reference Range Interpretation Comments Urine Cannabinoids Screen (test code = 39468-5) POSITIVE NEGATI VE H THESE RESULTS ARE FOR MEDICAL TREATMENT ONLYTHIS REPORT CONTAINS UNCONFIR MED SCREENING RESULTS*POSITIVE RESULTS WILL BE CONFIRMED BY REFERENCE LAB UPON R EQUEST CUT-OFFDRUG CLASS CONCENTRATION ng/mLAmphetamines 1000Methamphetamines 1000Cocaine 300Opiate 300Phencyc lidine 25Cannabinoid 50Barbiturates 300Benzodiazepine 300Methadone 300 This test p rovides only a screen. Positive results should be repeated by a confirmatory jourdan t.[facility] CenterUrine Methadone Bnpqtn6220-60-84 16:13:00* Test Item Value Reference Range Interpretation Comments Urine Methadone Screen (test code = 03600-4) NEGATIVE NEGATIVE THESE RESULTS ARE FOR MEDICAL TREATMENT ONLYTHIS REPORT CONTAINS UNCONFIR MED SCREENING RESULTS*POSITIVE RESULTS WILL BE CONFIRMED BY REFERENCE LAB UPON R EQUEST CUT-OFFDRUG CLASS CONCENTRATION ng/mLAmphetamines 1000Methamphetamines 1000Cocaine Metabolite 300Opiate 300Phencyc lidine 25Cannabinoid 50Barbiturates 300Benzodiazepine 300Methadone 300[facility]bergU[facility] Opiates Blepsu0626-98-29 16:13:00* Test Item Value Reference Range Interpretation Comments Urine Opiates Screen (test code = 53232-1) POSITIVE NEGATIVE H ALL TESTS PERFORMED MANUALLY ON [employer] TOX/SEE TEST This test provides only a sc reen. Positive results should be repeated by a confirmatory test.[facility] CenterUrine Barbiturates Cuvnwu0941-96-91 16:13:00* Test Item Value Reference Range Interpretation Comments Urine Barbiturates Screen (test code = 102354486) NEGATIVE NEGA TIVE [facility] CenterUrine Phencyclidine Rpcbyy8028-34-63 16:13:00* Test Item Value Reference Range Interpretation Comments Urine Phencyclidine Screen (test code = 24163-5) NEGATIVE NEGAT ANGY [facility] CenterUrine Amphetamines Mzmstk2590-72-26 16:13:00* Test Item Value Reference Range Interpretation Comments Urine Amphetamines Screen (test code = 66380-5) NEGATIVE NEGATI VE [facility] CenterUrine Methamphetamines Stdglu2709-20-54 16:13:00* Test Item Value Reference Range Interpretation Comments Urine Methamphetamines Screen (test code = Urine Metha mphetamines Screen) NEGATIVE NEGATIVE [facility] CenterUrine Benzodiazepines Fbsvbf6555-20-86 16:13:00* Test Item Value Reference Range Interpretation Comments Urine Benzodiazepines Screen (test code = 55812-2) NEGATIVE NEG ATIVE [facility] CenterUrine Cocaine Lbphtc6144-80-20 16:13:00* Test Item Value Reference Range Interpretation Comments Urine Cocaine Screen (test code = 3398-5) NEGATIVE NEGATIVE [facility] CenterUrine Cannabinoids Hnnllx9962-21-38 16:13:00* Test Item Value Reference Range Interpretation Comments Urine Cannabinoids Screen (test code = 22462-9) POSITIVE NEGATI VE H THESE RESULTS ARE FOR MEDICAL TREATMENT ONLYTHIS REPORT CONTAINS UNCONFIR MED SCREENING RESULTS*POSITIVE RESULTS WILL BE CONFIRMED BY REFERENCE LAB UPON R EQUEST CUT-OFFDRUG CLASS CONCENTRATION ng/mLAmphetamines 1000Methamphetamines 1000Cocaine 300Opiate 300Phencyc lidine 25Cannabinoid 50Barbiturates 300Benzodiazepine 300Methadone 300 This test p rovides only a screen. Positive results should be repeated by a confirmatory jourdan t.[facility] CenterUrine Methadone Qicjhx2462-84-37 16:13:00* Test Item Value Reference Range Interpretation Comments Urine Methadone Screen (test code = 78097-2) NEGATIVE NEGATIVE THESE RESULTS ARE FOR MEDICAL TREATMENT ONLYTHIS REPORT CONTAINS UNCONFIR MED SCREENING RESULTS*POSITIVE RESULTS WILL BE CONFIRMED BY REFERENCE LAB UPON R EQUEST CUT-OFFDRUG CLASS CONCENTRATION ng/mLAmphetamines 1000Methamphetamines 1000Cocaine Metabolite 300Opiate 300Phencyc lidine 25Cannabinoid 50Barbiturates 300Benzodiazepine 300Methadone 300[facility] Yhvew6205-63-48 16:12:00* Test Item Value Reference Range Interpretation Comments Urine Color (test code = 5778-6) YELLOW YELLOW [facility] CenterUrine Meusabf6196-98-13 16:12:00* Test Item Value Reference Range Interpretation Comments Urine Clarity (test code = 81881-2) SL CLOUDY CLEAR H [facility] CenterUrine Specific Zfhulmx3449-51-21 16:12:00 * Test Item Value Reference Range Interpretation Comments Urine Specific [place] (test code = 5811-5) 1.025 1.010-1.02 5 [facility] CenterUrine rE0687-76-56 16:12:00* Test Item Value Reference Range Interpretation Comments Urine pH (test code = 72977-6) 6 5-7 [facility] Leukocyte Lfzecyvg4087-98-19 16:12:00* Test Item Value Reference Range Interpretation Comments Urine Leukocyte Esterase (test code = 02329-5) NEGATIVE NEGATIV E [facility] Kridief5371-96-56 16:12:00* Test Item Value Reference Range Interpretation Comments Urine Nitrite (test code = 30222-6) NEGATIVE NEGATIVE [facility] Dffyqka9683-14-72 16:12:00* Test Item Value Reference Range Interpretation Comments Urine Protein (test code = 45029-0) TRACE NEGATIVE H [facility] Glucose (UA)2019-03-13 16:12:00* Test Item Value Reference Range Interpretation Comments Urine Glucose (UA) (test code = 50481-0) NEGATIVE NEGATIVE [facility] Ywgxucm8239-78-65 16:12:00* Test Item Value Reference Range Interpretation Comments Urine Ketones (test code = 50868-4) TRACE NEGATIVE H [facility] Ogucpqhzwanm6612-52-90 16:12:00* Test Item Value Reference Range Interpretation Comments Urine Urobilinogen (test code = 28380-8) 1 0.2-1 [facility] Rpgmsbycq4073-31-98 16:12:00* Test Item Value Reference Range Interpretation Comments Urine Bilirubin (test code = 1977-8) SMALL NEGATIVE [facility] Mvovf2746-34-90 16:12:00* Test Item Value Reference Range Interpretation Comments Urine Blood (test code = 12353-6) 1+ NEGATIVE [facility] Lhqjy2321-15-09 16:12:00* Test Item Value Reference Range Interpretation Comments Urine Color (test code = 5778-6) YELLOW YELLOW [facility] Ybvtdvr3056-36-57 16:12:00* Test Item Value Reference Range Interpretation Comments Urine Clarity (test code = 98766-7) SL CLOUDY CLEAR H [facility] Specific Wcbdmgn5332-68-59 16:12:00 * Test Item Value Reference Range Interpretation Comments Urine Specific [place] (test code = 5811-5) 1.025 1.010-1.02 5 [facility] qU2535-05-67 16:12:00* Test Item Value Reference Range Interpretation Comments Urine pH (test code = 96847-9) 6 5-7 [facility] Leukocyte Nvmluyqh2241-09-03 16:12:00* Test Item Value Reference Range Interpretation Comments Urine Leukocyte Esterase (test code = 59048-5) NEGATIVE NEGATIV E [facility] Furrbqr6855-10-99 16:12:00* Test Item Value Reference Range Interpretation Comments Urine Nitrite (test code = 28192-8) NEGATIVE NEGATIVE [facility] Bwcufst3657-85-53 16:12:00* Test Item Value Reference Range Interpretation Comments Urine Protein (test code = 53810-7) TRACE NEGATIVE H [facility] Glucose (UA)2019-03-13 16:12:00* Test Item Value Reference Range Interpretation Comments Urine Glucose (UA) (test code = 68986-0) NEGATIVE NEGATIVE [facility] Hnhkvjo6653-20-20 16:12:00* Test Item Value Reference Range Interpretation Comments Urine Ketones (test code = 24143-9) TRACE NEGATIVE H [facility] Kkojblmbrjof9381-12-95 16:12:00* Test Item Value Reference Range Interpretation Comments Urine Urobilinogen (test code = 52018-7) 1 0.2-1 [facility] Igajvrook2851-07-22 16:12:00* Test Item Value Reference Range Interpretation Comments Urine Bilirubin (test code = 1977-8) SMALL NEGATIVE [facility] Oonjz0290-42-74 16:12:00* Test Item Value Reference Range Interpretation Comments Urine Blood (test code = 53583-0) 1+ NEGATIVE [facility] Vueim7588-53-19 16:12:00* Test Item Value Reference Range Interpretation Comments Urine Color (test code = 5778-6) YELLOW YELLOW [facility] Pylfkcv5677-22-49 16:12:00* Test Item Value Reference Range Interpretation Comments Urine Clarity (test code = 58979-3) SL CLOUDY CLEAR H [facility] Center[facility] Specific Gbmjjyg5986-27-29 16:12:00 * Test Item Value Reference Range Interpretation Comments Urine Specific [place] (test code = 5811-5) 1.025 1.010-1.02 5 [facility] Center[facility] cV0839-71-76 16:12:00* Test Item Value Reference Range Interpretation Comments Urine pH (test code = 81303-9) 6 5-7 [facility] Center[facility] Leukocyte Svaqpcmv1450-78-60 16:12:00* Test Item Value Reference Range Interpretation Comments Urine Leukocyte Esterase (test code = 48004-8) NEGATIVE NEGATIV E [facility] Center[facility] Dojqeqa5952-59-59 16:12:00* Test Item Value Reference Range Interpretation Comments Urine Nitrite (test code = 57243-2) NEGATIVE NEGATIVE [facility] Dnuqwbn1782-81-84 16:12:00* Test Item Value Reference Range Interpretation Comments Urine Protein (test code = 54506-9) TRACE NEGATIVE H [facility] Glucose (UA)2019-03-13 16:12:00* Test Item Value Reference Range Interpretation Comments Urine Glucose (UA) (test code = 80780-3) NEGATIVE NEGATIVE [facility] Hgwbkez5942-71-41 16:12:00* Test Item Value Reference Range Interpretation Comments Urine Ketones (test code = 82353-0) TRACE NEGATIVE H [facility] Center[facility] Ciycyrctkxem7106-98-57 16:12:00* Test Item Value Reference Range Interpretation Comments Urine Urobilinogen (test code = 81171-8) 1 0.2-1 [facility] Center[facility] Xotheaosv5837-40-37 16:12:00* Test Item Value Reference Range Interpretation Comments Urine Bilirubin (test code = 1977-8) SMALL NEGATIVE [facility] Kuhmx3926-44-04 16:12:00* Test Item Value Reference Range Interpretation Comments Urine Blood (test code = 98826-7) 1+ NEGATIVE [facility] CenterAcetaminophen Suhxh2040-87-01 15:04:00* Test Item Value Reference Range Interpretation Comments Acetaminophen Level (test code = 69169-8) < 3 10-30 L [facility] CenterEthyl Alcohol Pudpp8536-25-20 15:04:00* Test Item Value Reference Range Interpretation Comments Ethyl Alcohol Level (test code = 5643-2) < 10.0 0.0-10.0 [facility]2019-11-11 15:04:00* Test Item Value Reference Range Interpretation Comments Salicylates Level (test code = 4024-6) < 5.0 0-30 [facility] CenterAcetaminophen Ybijx9746-51-30 15:04:00* Test Item Value Reference Range Interpretation Comments Acetaminophen Level (test code = 55213-7) < 3 10-30 L [facility] CenterEthyl Alcohol Yzqsu0563-16-32 15:04:00* Test Item Value Reference Range Interpretation Comments Ethyl Alcohol Level (test code = 5643-2) < 10.0 0.0-10.0 [facility]2019-11-11 15:04:00* Test Item Value Reference Range Interpretation Comments Salicylates Level (test code = 4024-6) < 5.0 0-30 [facility] Ijrud0538-50-05 15:04:00* Test Item Value Reference Range Interpretation Comments Acetaminophen Level (test code = 54081-4) < 3 10-30 L [facility] CenterEthyl Alcohol Vpmed5268-40-61 15:04:00* Test Item Value Reference Range Interpretation Comments Ethyl Alcohol Level (test code = 5643-2) < 10.0 0.0-10.0 [facility]2019-11-11 15:04:00* Test Item Value Reference Range Interpretation Comments Salicylates Level (test code = 4024-6) < 5.0 0-30 [facility] Ooddm2431-27-06 15:04:00* Test Item Value Reference Range Interpretation Comments Acetaminophen Level (test code = 69611-9) < 3 10-30 L [facility] CenterEthyl Alcohol Etffk1681-98-27 15:04:00* Test Item Value Reference Range Interpretation Comments Ethyl Alcohol Level (test code = 5643-2) < 10.0 0.0-10.0 [facility] Qyjmc0923-11-03 15:04:00* Test Item Value Reference Range Interpretation Comments Salicylates Level (test code = 4024-6) < 5.0 0-30 [facility] CenterCHEST SINGLE (PORTABLE)2019-03-13 14:46:00 [place] [address] Patient Name: QUYEN KIM MR #: [id number] : 1980 Age/Sex: 38/M Req #: [id number] Adm Physician: Ordered by: PAULINE DAMON MD, MD Report #: [id number] Location: ER Room/Bed: Procedure: [id number] D X/CHEST SINGLE (PORTABLE) Exam Date: 03/13/19 [...] 03/13/19 1446 COPY TO: PAULINE DAMON Sodium Gyarm1662-49-54 14:43:00* Test Item Value Reference Range Interpretation Comments Sodium Level (test code = 2951-2) 136 136-145 [facility] CenterPotassium Mpkxz0438-41-19 14:43:00* Test Item Value Reference Range Interpretation Comments Potassium Level (test code = 2823-3) 3.6 3.5-5.1 [facility] CenterChloride Iluhx1449-06-64 14:43:00* Test Item Value Reference Range Interpretation Comments Chloride Level (test code = 2075-0) 103 98-107 [facility] CenterCarbon Dioxide Mouqk8968-71-79 14:43:00* Test Item Value Reference Range Interpretation Comments Carbon Dioxide Level (test code = 2028-9) 23 22-29 [facility] CenterAnion Wye5422-10-57 14:43:00* Test Item Value Reference Range Interpretation Comments Anion Gap (test code = 52900-0) 13.6 8-16 [facility] CenterBlood Urea Cxsdjfta3916-73-72 14:43:00* Test Item Value Reference Range Interpretation Comments Blood Urea Nitrogen (test code = 3094-0) 10 7-26 [facility] CenterCreatinine2019-11-11 14:43:00* Test Item Value Reference Range Interpretation Comments Creatinine (test code = 2160-0) 1.48 0.72-1.25 H [facility] CenterBUN/Creatinine Ufuuh9682-69-34 14:43:00* Test Item Value Reference Range Interpretation Comments BUN/Creatinine Ratio (test code = 3097-3) 7 6- [facility] CenterEstimat Glomerular Filtration Rate 2019-03-13 14:43:00* Test Item Value Reference Range Interpretation Comments Estimat Glomerular Filtration Rate (test code = 416264282) > 60 >60 Ranges were taken from the National Kidney Disease Education Program and the [facility] Foundation literature.Reference ranges:60 or greater: Bxtofk99-21 ( for 3 consecutive months): Chronic kidney disease 15 or less: Kidney failureCarrollton Regional Medical CenterGlucose Tnlls7019-08-02 14:43:00* Test Item Value Reference Range Interpretation Comments Glucose Level (test code = NYJ7130) 84 74-118 [facility] CenterCalcium Mcfys7118-25-89 14:43:00* Test Item Value Reference Range Interpretation Comments Calcium Level (test code = 72679-5) 9.5 8.4-10.2 [facility] CenterMagnesium Vtapd3835-55-73 14:43:00* Test Item Value Reference Range Interpretation Comments Magnesium Level (test code = 48867-5) 1.7 1.3-2.1 [facility] CenterTotal Tentjivtk9755-68-37 14:43:00* Test Item Value Reference Range Interpretation Comments Total Bilirubin (test code = 1975-2) 0.4 0.2-1.2 [facility] CenterAspartate Amino Transf (AST/SGOT) 2019-03-13 14:43:00* Test Item Value Reference Range Interpretation Comments Aspartate Amino Transf (AST/SGOT) (test code = Aspartate Amino Transf (AST/SGOT)) 26 5-34 [facility] CenterAlanine Aminotransferase (ALT/SGPT) 2019-03-13 14:43:00* Test Item Value Reference Range Interpretation Comments Alanine Aminotransferase (ALT/SGPT) (test code = 1742-6) 31 0-55 [facility] CenterTotal Aawdani0875-51-35 14:43:00* Test Item Value Reference Range Interpretation Comments Total Protein (test code = 2885-2) 7.7 6.5-8.1 [facility] CenterAlbumin2019-11-11 14:43:00* Test Item Value Reference Range Interpretation Comments Albumin (test code = 1751-7) 3.8 3.5-5.0 [facility] CenterGlobulin2019-11-11 14:43:00* Test Item Value Reference Range Interpretation Comments Globulin (test code = 59617-7) 3.9 2.3-3.5 H [facility] CenterAlbumin/Globulin Mjlae9554-46-87 14:43:00 * Test Item Value Reference Range Interpretation Comments Albumin/Globulin Ratio (test code = 1759-0) 1.0 0.8-2.0 [facility] CenterAlkaline Dxvljytdvht1665-51-09 14:43:00* Test Item Value Reference Range Interpretation Comments Alkaline Phosphatase (test code = 6768-6) 75 40-150 [facility] CenterLipase2019-11-11 14:43:00* Test Item Value Reference Range Interpretation Comments Lipase (test code = 3040-3) 12 8-78 [facility] CenterMagnesium Dkuka1337-34-87 14:43:00* Test Item Value Reference Range Interpretation Comments Magnesium Level (test code = 67496-5) 1.7 1.3-2.1 [facility] CenterMagnesium Wafmf7718-53-74 14:43:00* Test Item Value Reference Range Interpretation Comments Magnesium Level (test code = 93527-3) 1.7 1.3-2.1 [facility] CenterWhite Blood Gxymm5026-34-83 14:22:00* Test Item Value Reference Range Interpretation Comments White Blood Count (test code = 6690-2) 3.05 4.8-10.8 L [facility] CenterRed Blood Gqmor7399-00-84 14:22:00* Test Item Value Reference Range Interpretation Comments Red Blood Count (test code = 789-8) 3.51 4.3-5.7 L [facility] CenterHemoglobin2019-11-11 14:22:00* Test Item Value Reference Range Interpretation Comments Hemoglobin (test code = 78574-9) 11.5 14.0-18.0 L [facility] CenterHematocrit2019-11-11 14:22:00* Test Item Value Reference Range Interpretation Comments Hematocrit (test code = 4544-3) 33.3 38.2-49.6 L [facility] CenterMean Corpuscular Wbmmny2471-69-84 14:22:00* Test Item Value Reference Range Interpretation Comments Mean Corpuscular Volume (test code = 787-2) 94.9 81-99 [facility] CenterMean Corpuscular Aegbhiphbo6292-55-01 14:22:00* Test Item Value Reference Range Interpretation Comments Mean Corpuscular Hemoglobin (test code = 785-6) 32.8 28-32 H [facility] CenterMean Corpuscular Hemoglobin Concent 2019-03-13 14:22:00* Test Item Value Reference Range Interpretation Comments Mean Corpuscular Hemoglobin Concent (test code = 786-4) 34.5 31-35 [facility] CenterRed Cell Distribution Cezdw6682-83-61 14:22:00* Test Item Value Reference Range Interpretation Comments Red Cell Distribution Width (test code = 40268-3) 11.7 11.7 -14.4 [facility] CenterPlatelet Lxphm2434-37-65 14:22:00* Test Item Value Reference Range Interpretation Comments Platelet Count (test code = 777-3) 189 140-360 [facility] CenterNeutrophils (%) (Auto)2019-03-13 14:22:00 * Test Item Value Reference Range Interpretation Comments Neutrophils (%) (Auto) (test code = 05475-0) 53.1 38.7-80.0 [facility] CenterLymphocytes (%) (Auto)2019-03-13 14:22:00 * Test Item Value Reference Range Interpretation Comments Lymphocytes (%) (Auto) (test code = 736-9) 33.1 18.0-39.1 [facility] CenterMonocytes (%) (Auto)2019-03-13 14:22:00* Test Item Value Reference Range Interpretation Comments Monocytes (%) (Auto) (test code = 5905-5) 10.8 4.4-11.3 [facility] CenterEosinophils (%) (Auto)2019-03-13 14:22:00 * Test Item Value Reference Range Interpretation Comments Eosinophils (%) (Auto) (test code = 713-8) 2.0 0.0-6.0 [facility] CenterBasophils (%) (Auto)2019-03-13 14:22:00* Test Item Value Reference Range Interpretation Comments Basophils (%) (Auto) (test code = 706-2) 0.3 0.0-1.0 [facility] CenterIM GRANULOCYTES %2019-03-13 14:22:00* Test Item Value Reference Range Interpretation Comments IM GRANULOCYTES % (test code = IM GRANULOCYTES %) 0.7 0.0- 1.0 [facility] CenterNeutrophils # (Auto)2019-03-13 14:22:00* Test Item Value Reference Range Interpretation Comments Neutrophils # (Auto) (test code = 751-8) 1.6 2.1-6.9 L [facility] CenterLymphocytes # (Auto)2019-03-13 14:22:00* Test Item Value Reference Range Interpretation Comments Lymphocytes # (Auto) (test code = 13698-3) 1.0 1.0-3.2 [facility] CenterMonocytes # (Auto)2019-03-13 14:22:00* Test Item Value Reference Range Interpretation Comments Monocytes # (Auto) (test code = 742-7) 0.3 0.2-0.8 [facility] CenterEosinophils # (Auto)2019-03-13 14:22:00* Test Item Value Reference Range Interpretation Comments Eosinophils # (Auto) (test code = 711-2) 0.1 0.0-0.4 [facility] CenterBasophils # (Auto)2019-03-13 14:22:00* Test Item Value Reference Range Interpretation Comments Basophils # (Auto) (test code = 704-7) 0.0 0.0-0.1 [facility] CenterAbsolute Immature Granulocyte (auto 2019-03-13 14:22:00* Test Item Value Reference Range Interpretation Comments Absolute Immature Granulocyte (auto (jourdan t code = Absolute Immature Granulocyte (auto) 0.02 0-0.1 [facility] CenterManual blood eosinophil count as percentage of total dojsiedibj9535-71-25 12:55:00* Test Item Value Reference Range Interpretation Comments Eosinophils % (Manual) (test code = 714-6) 3 0-7 [facility] metamyelocytes/100 lhzvmovfhk0173-66-20 12:55:00* Test Item Value Reference Range Interpretation Comments Metamyelocytes % (test code = 740-1) 1 0-0 [facility] CenterBlood anisocytosis detection by light dboefoshrm6189-69-88 12:55:00* Test Item Value Reference Range Interpretation Comments Anisocytosis (test code = 702-1) SLIGHT [facility] CenterBlood [place] bodies detection by light hxawiwglal6740-19-25 12:55:00* Test Item Value Reference Range Interpretation Comments [place] Bodies (test code = 7793-3) FEW [facility] Centererum or plasma acetaminophen measurement by screening method (mass/volume)2019-03-13 12:55:00* Test Item Value Reference Range Interpretation Comments Acetaminophen Level (test code = 77032-6) < 3 10-30 [facility] Centererum or plasma ethanol measurement (mass/volume)2019-03-13 12:55:00* Test Item Value Reference Range Interpretation Comments Ethyl Alcohol Level (test code = 5643-2) < 10.0 0.0-10.0 [facility] Centererum or plasma salicylates measurement (mass/volume)2019-03-13 12:55:00* Test Item Value Reference Range Interpretation Comments Salicylates Level (test code = 4024-6) < 5.0 0-30 [facility] CenterCalcium carbonate crystals detection in urine sediment by light fstgnmmfnb2075-18-58 11:35:00* Test Item Value Reference Range Interpretation Comments Urine Calcium Carbonate Crystals (test code = 5773-7) MANY NONE [facility]- DUP AB/PEL/SC SAFP8344-66-02 11:31:00 Name: QUYEN KIM [facility] : 1980 Age/S: 38 / M [address] [facility] Unit #: [id number] Loc: [place] [address] Phys: Freddie Lira MD Acct: [id number] Di s Date: Status: REG ER PHONE #: Exam Date: 02/28/2019 1110 FAX #: [phone] Reason: scrotal pain EXAMS: CPT CODE: [id number] DUP AB/PEL/SC COMP 66636 REASON FOR EXAM: testicul ar pain, vomiting [...] 1 Signed Report (CONTINUED) Name: QUYEN KIM [facility] : 1980 Age/S: 38 / M [address] [facility] Unit #: [id number] Loc: [place] [address] Phys: Kyra Lira MD Acct: [id number] Dis Date: atus: PHONE #: [phone] Exam Theodore e: 02/28/2019 1110 FAX #: [phone] Reason: scrotal pain EXAMS: CPT CODE: [id number] DUP AB/PEL/SC COMP 85463 <Continued> personal/family history of germ cell tumour maldescent orchidopexy testicular atrophy No evidence of torsion or orchitis. at 1131 Reported and signed by: Alli Felipe MD CC: Kyra Lira MD Technologist: ARNULFO COATS RT(R),SRINIVASA Trnscb Date/Time: 02/28/2019 (8495) [email or web address] PAGE 2 Signed Report - US SCROTUM AND LQBI5310-58-41 11:31:00 Name: QUYEN KIM [facility] : 1980 Age/S: 38 / M [address] Unit #: [id number] Loc: [place] [address] Phys: Kyra Lira MD Acct: [id number] Dis Date: Status: REG ER PHONE #: [phone] Exam Date: 02/28/2019 1110 FAX #: [phone] Reason: testicular pain, vomiting EXAMS: CPT CODE: [id number] US SCROTUM AND CNTS 62090 REASON FOR EXAM: testicular pain, vomiting EXAM ORDER DATE: 02/28/2019 8:52 AM Attending M.Junito.: Kyra Lira MD PROCEDURE: - US SCROTUM [...] 1 Signed Report (CONTINUED) Name: QUYEN KIM [facility] : 1980 Age/S: 38 / M [address] Unit #: [id number] Loc: [place] [address] Phys: Kyra Lira MD Acct: [id number] Dis Date: Status: REG ER PHONE #: [phone] Exam Date: 02/28/2019 1110 FAX #: [phone] Reason: testicular pain, vomiting EXAMS: CPT CODE: [id number] US SCROTUM AND CNTS 43933 <Continued> personal/family history of germ cell tumour maldescent orchidopexy testicular atrophy No evidence of torsion or orchitis. at 1131 Reported and signed by: Alli Felipe MD CC: Kyra iLra MD Technologist: ARNULFO COATS RT(R),RDMS Trnscb Date/Time: 02/28/2019 (113) [email or web address] Orig Print D/T: S: 02/28/2019 (4437) Probe: PAGE 2 Signed Report DRUGS OF ABUSE SCREEN LA8662-48-08 10:46:00* Test Item Value Reference Range Interpretation [...] NEGATIVE <300 ng/mL ADD ON AT 1002URINALYSIS VDGKDOYA7460-73-90 10:32:00* Test Item Value Reference Range Interpretation [...] Urine Source? Clean CatchDRUGS OF ABUSE SCREEN GC9702-28-29 10:32:00* Test Item Value Reference Range Interpretation [...] = [place]) <300 ng/mL ADD ON AT [address] [place] [address] W/O BIZM9202-31-66 10:13:00* Test Item Value Reference Range Interpretation [...] MPV) 11.4 fL 6.7-11.0 H BASIC METABOLIC FTRVZ0271-46-89 10:10:00* Test Item Value Reference Range Interpretation [...] CA) 9.8 mg/dL 8.5-10.1 N HEPATIC FUNCTION CSHRS5284-05-11 10:10:00* Test Item Value Reference Range Interpretation [...] reference range due to change in reagent. SNYXVI5317-77-16 10:10:00* Test Item Value Reference Range Interpretation Comments LIPASE (test code = LIP) 123 U/L 73.0-393.0 N GXWJDHGI-A6679-04-29 10:10:00* Test Item Value Reference Range Interpretation Comments TROPONIN-I (test code = TROPI) <0.015 ng/mL 0-0.045 N BASIC METABOLIC ZWRAD0193-70-02 09:58:00* Test Item Value Reference Range Interpretation [...] code = CA) mg/dL 8.5-10.1 HEPATIC FUNCTION SUCGU9356-04-70 09:58:00* Test Item Value Reference Range Interpretation [...] TOTAL (test code = ALKP) IUnit/L 45-117 LWIUQR5647-49-42 09:58:00* Test Item Value Reference Range Interpretation Comments LIPASE (test code = LIP) U/L 73.0-393.0 TEMYDXPV-U1648-94-29 09:58:00* Test Item Value Reference Range Interpretation Comments TROPONIN-I (test code = TROPI) ng/mL 0-0.045 - CT ABD PELVIS W/O CITT7943-16-15 09:34:00 Name: QUYEN KIM [facility] : 1980 Age/S: 38 / M [address] [facility] Unit #: [id number] Loc: [place] [address] Phys: Kyra Lira MD Acct: [id number] Dis Date: Status: REG ER PHONE #: [phone] Exam Date: 02/28/2019904 FAX #: [phone] Reason: LLQ ttp, vomiting EXAMS: CPT CODE: [id number] CT ABD PELVIS W/O CONT 63128 REASON FOR EXAM: LLQ ttp, vomiting EXAM ORDER DATE: 02/28/2019 8:52 AM Ordering MBradley: Kyra Lira MD PROCEDURE: - CT ABD [...] Signed Re port (CONTINUED) Name: QUYEN KIM [facility] : 1980 Age/S: 38 / M [address] Unit #: [id number] Loc: [place] [address] Phys: Kyra Lira MD Acct: [id number] Dis Date: Status: REG ER PHONE #: [phone] Exam Date: 02/28/2019904 FAX #: [phone] Reason: LLQ ttp, vomiting EXAMS: CPT CODE: [id number] CT ABD PELVIS W/O CONT 75514 <Continued> Abdominal vascular structures: Circumaortic left renal [...] tract in the left lower abdomen. Location: [facility] at 0934 Reported and signed by: Alli Felipe MD CC: Kyra Lira MD Technologist:Radames Chang RT(R),(MR),(CT) CTDI: DLP: Trnscb Date/Time: 02/28/2019 (34) [email or web address] Orig Print D/T: S: 02/28/2019 (0937) PAGE 2 Signed Report - CT ABD PELVIS W/O NPVD3309-56-36 16:32:00 Name: QUYEN KIM [facility] : 1980 Age/S: 38 / M [address] [facility] Unit #: [id number] Loc: [place] [address] Phys: Trudy Benjamin NP Acct: [id number] Dis Date: Status: REG ER PHONE #: [phone] Exam Date: 02/24/2019 1430 FAX #: [phone] Reason: abdominal pain EXAMS: CPT CODE: [id number] CT ABD PELVIS W/O CONT 70640 REASON FOR EXAM: abdominal pain EXAM ORDER [...] 1 Signed Report (CONTINUED) Name: QUYEN KIM [facility] : 1980 Age/S: 38 / M [address] [facility] Unit #: [id number] Loc: [place] [address] Phys: Trudy Benjamin NP Acct: [id number] Dis Date: Status: REG ER PHONE #: [phone] Exam Date: 02/24/2019 1430 FAX #: [phone] Reason: abdominal pain EXAMS: CPT CODE: [id number] CT ABD PELVIS W/O CONT 04187 < Continued> grossly normal Peritoneum and retroperitoneum: [...] inguinal canal. Correlate with physical exam. Location: [facility] at 1632 Reported and signed by: Alli Felipe MD CC: Trudy Benjamin OPHTHALMIC AIDE; Melyssa Ramirez DO Technologist:Pavel Maciel RT(R) CTDI: DLP: Trnscb Date/Time: 02/24/2019 (9917) [email or web address] Orig Print D/T: S: 02/24/2019 (3309) PAGE 2 Signed Report DRUGS OF ABUSE [...] NEGATIVE <300 ng/mL DRUGS OF ABUSE SCREEN [id number] 16:07:00* Test Item Value Reference Range Interpretation [...] code = [place]) NEGATIVE <300 ng/mL URINALYSIS [id number] 15:47:00* Test Item Value Reference Range Interpretation [...] FEW A Urine Source? Clean CatchBASIC METABOLIC [id number] 14:12:00* Test Item Value Reference Range Interpretation [...] CA) 9.9 mg/dL 8.5-10.1 N HEPATIC FUNCTION [id number] 14:12:00* Test Item Value Reference Range Interpretation [...] reference range due to change in reagent. [id number] 14:12:00* Test Item Value Reference Range Interpretation Comments LIPASE (test code = LIP) 80 U/L 73.0-393.0 N BASIC METABOLIC [id number] 14:00:00* Test Item Value Reference Range Interpretation [...] code = CA) mg/dL 8.5-10.1 HEPATIC FUNCTION [id number] 14:00:00* Test Item Value Reference Range Interpretation [...] TOTAL (test code = ALKP) IUnit/L 45-117 [id number] 14:00:00* Test Item Value Reference Range Interpretation Comments LIPASE (test code = LIP) U/L 73.0-393.0 CBC W/O [id number] 13:50:00* Test Item Value Reference Range Interpretation [...] MPV) 10.4 fL 6.7-11.0 N CBC W/O [id number] 13:49:00* Test Item Value Reference Range Interpretation [...]
[2019-12-15] MEDS ORDERED: COMPAZINE25 MG PO (23:24)
== END 2019-12-16 00:02 | disposition home or self-care (01) ==
LOC: ER 20:45
DX: R11.2 Nausea with vomiting, unspecified (principal); F12.90 Cannabis use, unspecified, uncomplicated; I10 Essential (primary) hypertension; B20 Human immunodeficiency virus [HIV] disease
CPT/HCPCS: 36415; 80053; 83690; 85025; 96372; 96374; 99284; J1630; J2405; J7030

== ENCOUNTER 2019-12-24 13:32 | Emergency (ER) | payer OTHER ==
[~2019-12-24] VITALS: Ht 200.7 cm; Wt 54.4 kg
[~2019-12-24 13:32] MED LIST changes: +COMPAZINE25 MG PO
--- NOTE | 2019-12-24 13:36 | NUR ---
PATIENT CALLED, HE IS IN BATHROOM
[2019-12-24] MEDS ORDERED: SODIUM CHLORIDE 0.9% 1000ML 1,000 ML IV STA ×4 (13:37→16:06)
--- NOTE | 2019-12-24 13:37 | Emergency Department Note ---
History of Present Illnes History of Present Illness History of Present Illness This is a 39 year old male presents to the ED for 3 week h/o of n/v. Patient states that his CD4 count and viral load was "good" 4 months ago. Historian: Patient, Family Member Arrival Mode: Car Onset (how long ago): week(s) (3) Radiation: Reports non-radiation Severity: moderate Onset quality: gradual Duration (how long): week(s) (3) Timing of current episode: constant Progression: worsening Chronicity: recurrent Context: Reports non-compliance w/ medications Exacerbating factors: eating Associated symptoms: Reports nausea/vomiting, Reports weakness Previous service: medications given, tests performed, observation, one or more referrals, re-evaluation Past Medical/Family History Physician Review I have reviewed the patient's past medical and family history. Any updates have been documented here. 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 Social History Smoking Cessation: Current some day smoker Any Illegal Drug Use: Yes (cocaine abuse) Other Last Tetanus: UTD Review of Systems Review of Systems Constitutional: Reports no symptoms EENTM: Reports no symptoms Cardiovascular: Reports no symptoms Respiratory: Reports no symptoms Gastrointestinal: Reports nausea, Reports vomiting Genitourinary: Reports no symptoms Musculoskeletal: Reports no symptoms Integumentary: Reports no symptoms Neurological: Reports no symptoms Psychological: Reports no symptoms Endocrine: Reports no symptoms Hematological/Lymphatic: Reports no symptoms Physical Exam Related Data Allergies: Coded Allergies: No Known Drug Allergies (Verified Allergy, Unknown, 03/16/19) Triage Vital Signs Vital Signs Date Time Temp Pulse Resp B/P (MAP) Pulse Ox O2 Delivery O2 Flow Rate FiO2 12/24/19 13:41 98.2 87 18 169/108 100 Room Air Vital signs reviewed: Yes Physical Exam CONSTITUTIONAL Constitutional: Present cachectic, Present ill appearing HENT HENT: Present normocephalic, Present atraumatic, Present oropharynx clear/moist, Present nose normal HENT L/R: Present left ext ear normal, Present right ext ear normal EYES Eyes: Reports PERRL, Reports conjunctivae normal NECK Neck: Present ROM normal PULMONARY Pulmonary: Present effort normal, Present breath sounds normal CARDIOVASCULAR Cardiovascular: Present regular rhythm, Present heart sounds normal, Present capillary refill normal, Present normal rate GASTROINTESTINAL Abdominal: Present soft, Present nontender, Present bowel sounds normal GENITOURINARY Genitourinary: Present exam deferred SKIN Skin: Present warm, Present dry MUSCULOSKELETAL Musculoskeletal: Present ROM normal NEUROLOGICAL Neurological: Present alert, Present oriented x 3, Present no gross motor or sensory deficits PSYCHOLOGICAL Psychological: Present mood/affect normal, Present judgement normal Results Laboratory Lab results reviewed: Yes Imaging Imaging results reviewed: Yes Impressions [place] [address] Patient Name: QUYEN COCHRAN MR #: [id number] : 1980 Age/Sex: 39/M Req #: [id number] Adm Physician: Ordered by: SHARI SPICER DO Report #: [id number] Location: ER Room/Bed: Procedure: [id number] DX/CHEST SINGLE (PORTABLE) Exam Date: 12/24/19 Exam Time: 1405 REPORT STATUS: Signed EXAMINATION: CHEST SINGLE (PORTABLE) INDICATION: Pain. Nausea and vomiting. COMPARISON: 04/04/2019. FINDINGS: TUBES and LINES: None. LUNGS: Lungs are well inflated. Lungs are clear. There is no evidence of pneumonia or pulmonary edema. PLEURA: No pleural effusion or pneumothorax. HEART AND MEDIASTINUM: The cardiomediastinal silhouette is unremarkable. BONES AND SOFT TISSUES: No acute osseous lesion. Soft tissues are unremarkable. UPPER ABDOMEN: No free air under the diaphragm. IMPRESSION: No acute thoracic abnormality. Signed by: Dr. Renetta Medel M.D. on 12/24/2019 2:46 PM Dictated By: ROXANN MEDEL MD, MD 1446 Transcribed By: JEANNE on 12/24/19 1446 COPY TO: SHARI SPICER DO~ Assessment & Plan Medical Decision Making MDM Diff Dx : DKA, hypovolumic shock, covid-19 infection, inflammatory bowel disease , surgical abdomen Reassessment Reassessment Patient given 3 liters of fluid with marked improvement in clinical symptoms. Assessment & Plan Final Impression: (1) Intractable nausea and vomiting (2) Renal insufficiency Depart Disposition: HOME, SELF-long term Meds Active Scripts Haloperidol (HALOPERIDOL) 1 Mg Tablet, 2 MG PO DAILY PRN for NAUSEA MDD 2 mg, #20 TAB Prov:NITIN DUBON MD 12/26/19 Pantoprazole Sodium* (PROTONIX) 40 Mg Tablet.dr, 40 MG PO DAILY, #14 TAB Prov:GEOVANI MONROY DO 12/14/19 Dicyclomine Hcl (BENTYL) 10 Mg/1 Ml Ampul, 20 MG PO QID, #20 VIAL Prov:GEOVANI MONROY DO 12/14/19 Reported Medications Dicyclomine Hcl (BENTYL) 10 Mg/1 Ml Ampul, 20 MG IV QID, VIAL 04/04/19 Metronidazole (FLAGYL) 500 Mg Tablet, 500 MG PO Q6H 04/04/19 Acetaminophen/Codeine* (TYLENOL # 3*) 1 Ea Tab, PO PRN PRN for ABDOMINAL PAIN 04/04/19 Clindamycin Hcl (CLINDAMYCIN HCL) 300 Mg Capsule, 300 MG PO Q6H 04/04/19 Hydrochlorothiazide (HYDROCHLOROTHIAZIDE) 25 Mg Tablet, 12.5 MG PO DAILY, #30 TAB 03/14/19 Discontinued Scripts Ondansetron Hcl* (ZOFRAN*) 4 Mg Tablet, 4 MG SL Q6H PRN for NAUSEA, #14 MG 0 Refills Prov:GEOVANI MONROY DO 12/14/19 Medications in the ED Sodium Chloride 1,000 ml @ 0 mls/hr Q0M STAT IV Last administered on 12/24/19at 14:14; Admin Dose 999 MLS/HR; Start 12/24/19 at 13:37; Stop 12/25/19 at 00:52; Status DC Sodium Chloride 1,000 ml @ 0 mls/hr Q0M STAT IV Last administered on 12/24/19at 14:14; Admin Dose 999 MLS/HR; Start 12/24/19 at 13:37; Stop 12/25/19 at 00:52; Status DC Ondansetron HCl 4 mg NOW IV Last administered on 12/24/19at 14:15; Admin Dose 4 MG; Start 12/24/19 at 13:45; Stop 12/25/19 at 00:52; Status DC Sodium Chloride 1,000 ml @ 0 mls/hr Q0M STAT IV ; Start 12/24/19 at 13:39; Stop 12/24/19 at 14:15; Status DC Morphine Sulfate 4 mg ONCE IV Last administered on 12/24/19at 14:15; Admin Dose 4 MG; Start 12/24/19 at 14:00; Stop 12/25/19 at 00:52; Status DC Ondansetron HCl 4 mg NOW IV ; Start 12/24/19 at 14:00; Stop 12/25/19 at 00:52; Status DC Morphine Sulfate 4 mg STK-MED ONCE .ROUTE ; Start 12/24/19 at 14:06; Stop 12/24/19 at 14:00; Status DC Sodium Chloride 1,000 ml @ 0 mls/hr Q0M STAT IV Last administered on 12/24/19at 17:06; Admin Dose 999 MLS/HR; Start 12/24/19 at 16:06; Stop 12/25/19 at 00:52; Status DC SHARI SPICER DO Dec 24, 2019 13:37
--- OUTSIDE RECORDS SUMMARY | 2019-12-24 13:42 | XMS REPORT | Clinical Summary ---
Author Author [facility] Organization [facility] Address Unknown Phone Unavailable Care Team Providers Care Deputy District Customs Director Name Role Phone PCP Unavailable Allergies Comments [...] Kyra Wei RN Results Not on fileafter 12/23/2018 Insurance Type Payer Benefit Subscriber ID Effective Phone Address Plan / Dates Group [employer] [id number] SSI xxxxxxxxx 2017-P [id number] [place] [address] [facility] SELF-PAY SELF-PAY xxxxxxxxx 2018-P [phone] [id number] [place] [address] Vimal Kim Personal/F Self [address] amily (Home) [place] [address] Advance Directives Date Inactivated Comments Code Status Date Activated 11/12/2011 4:39 PM Full Code 11/11/2011 4:04 AM
--- OUTSIDE RECORDS SUMMARY | 2019-12-24 13:43 | XMS REPORT | Continuity of Care Document ---
Author Author [facility] t Organization [facility] Address [address] 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 Name Role Phone NONSTAFF PCP Unavailable Brown MONROY Attphys Unavailable Sergio MONTGOMERY Attphys Unavailable WESLY SPICER Attphys Unavailable PAULINE DAMON Attphys Unavailable Payers Payer Name Policy Type Policy Number Effective Date Expiration Date [place] Medicaid [id number] 2017 00:00:00 2020 00:00:00 [facility] Problems Condition Name Condition Details Condition Category Status Onset Date Resolution Date Last Treatment Date Treating Clinician Comments Source LBP (low back pain) LBP (low back pain) Disease Active 2014-05-11 00:00 :00 [facility] Homeless Homeless Disease Active 2012-01-12 00:00:00 [facility] Polysubstance (excluding opioids) dependence Polysubst ance (excluding opioids) dependence Disease Active 2011-12-15 00:00:00 [facility] AIDS AIDS Disease Active 2011-09-03 00:00:00 [facility] Major depression, recurrent Major depression, recurrent Disease Active 2010-12-15 00:00:00 [facility] ealt Irritable bowel syndrome Problem Active [facility] Cocaine abuse Problem Active [facility] Cannabinoid hyperemesis syndrome Problem Active [facility] Abdominal pain Abdominal pain Disease Active [facility] Allergies, Adverse Reactions, Alerts Allergy Name Allergy Type Status Severity Reaction(s) Onset Date Inacti ve Date Treating Clinician Comments Source No Known Allergies DA Active U 2019-02-28 00:00:00 [facility] Aspirin Propensity to adverse reactions to drug Active 2018-01-06 00:00:00 [facility] ASPIRIN DA Active U 2005-10-16 00:00:00 [facility] No Known Contrast Allergies DA Active U 2005-10-16 00:00: 00 [facility] No Known Food Allergies DA Active U 2005-10-16 00:00:00 [facility] No Known Other Allergies DA Active U 2005-10-16 00:00:00 [facility] Family History Family Member Diagnosis Comments Start Date Stop Date Source Natural brother Diabetes [facility] Natural father Lipids [facility] Natural father Unknown [facility] Natural mother Alcohol/Drug [facility] Natural mother Diabetes [facility] Natural mother Hypertension [facility] Natural sister Seizures [facility] Social History Social Habit Start Date Stop Date Quantity Comments Source History of tobacco use Cigarette Smoker [facility] Sex Assigned At [facility] Cigarettes smoked current (pack per day) - Reported 00:00:00 2018-10-05 00:00:00 [facility] Cigarette pack-years 2018-10-05 00:00:00 2018-10-05 00:00:00 [facility] Alcohol intake 2018-10-05 00:00:00 2018-10-05 00:00:00 Current non-drinker of alcohol (finding) [facility] SDVT Food Worry 2016-09-22 00:00:00 2016-09-22 00:00:00 1 [facility] Food Scarcity 2016-09-22 00:00:00 2016-09-22 00:00:00 1 [facility] Smoking Status Start Date Stop Date Source Current every day smoker 2018-10-05 00:00:00 [facility] Medications Ordered Medication Name Filled Medication Name Start Date Stop Da te Current Medication? Ordering Clinician Indication Dosage Frequency Signature (SIG) Comments Components Source Prochlorperazine (Compazine) 25 Mg SUPP.RECT Prochlorp erazine (Compazine) 25 Mg SUPP.RECT 2019-12-15 23:24:00 Yes 10 Daily [facility] Dicyclomine Hcl (Bentyl) 10 Mg/1 Ml AMPUL Dicyclomine Hcl (Bentyl) 10 Mg/1 Ml AMPUL 2019-12-14 10:35:00 Yes 20 Four Times Daily [facility] Ondansetron Hcl (Zofran*) 4 Mg TABLET Ondansetron Hcl (Zofra n*) 4 Mg TABLET 2019-12-14 10:35:00 Yes 4 Every 6 Hours as n eeded for Nausea [facility] Pantoprazole Sodium (Protonix) 40 Mg TABLET. Pantopr azole Sodium (Protonix) 40 Mg TABLET. 2019-12-14 10:35:00 Yes 40 Daily [facility] ibuprofen (MOTRIN) 400 mg tablet 2018-01-06 00:00:00 Yes Abdominal pain, unspecified abdominal location 400mg Take 1 ta blet by mouth every 8 hours as needed for Pain. [facility] sulfamethoxazole-trimethoprim (BACTRIM DS) 800-160 mg per ta blet 2017-02-19 00:00:00 Yes AIDS 1{tbl} Take 1 tablet by mouth 3 time s weekly. [facility] darunavir (PREZISTA) 800 mg Tab tablet 2017-02-18 00:00:00 Yes AIDS 800mg QD Take 1 tablet by mouth daily. [facility] RITONavir (NORVIR) 100 mg Tab 2017-02-18 00:00:00 Yes AIDS 100mg QD Take 1 tablet by mouth daily. [facility] emtricitabine-tenofovir alafen (DESCOVY) 200-25 mg tablet 2017-02-18 00:00:00 Yes AIDS 1{tbl} QD Take 1 tablet by mouth daily. [facility] BOOST VHC 0.09-2.25 gram-kcal/mL oral liquid 2017-02-18 00:00:00 Yes AIDS 1{package} Take 1 Package by mouth 3 times daily. [facility] Acetaminophen/Codeine Phosphate (Tylenol # 3*) 1 Ea TA B Acetaminophen/Codeine Phosphate (Tylenol # 3*) 1 Ea TAB Yes As Needed as needed for Abdominal Pain [facility] Clindamycin Hcl Clindamycin Hcl Yes 300 Every 6 Hours [facility] Dicyclomine Hcl (Bentyl) 10 Mg/1 Ml AMPUL Dicyclomine Hcl (Bentyl) 10 Mg/1 Ml AMPUL Yes 20 Four Times Daily [facility] Hydrochlorothiazide Hydrochlorothiazide Yes 12.5 Daily [facility] Metronidazole (Flagyl) 500 Mg TABLET Metronidazole (Flagyl) 500 Mg TABLET Yes 500 Every 6 Hours [facility] Immunizations Ordered Immunization Name Filled Immunization Name Date Status Comments Source Influenza <Unspecified> 2017-03-09 00:00:00 Completed [facility] PPD 2016-09-22 00:00:00 Completed [facility] Pneumococcal 13-valent conj 0.5 mL injection 2014-04-30 00 :00:00 Completed [facility] Influenza Vaccine 2014-01-30 00:00:00 Completed [facility] PPD 2014-01-02 00:00:00 Completed [facility] Influenza Vaccine 2012-02-09 00:00:00 Completed [facility] Hepatitis B Vaccine 2012-01-14 00:00:00 Completed [facility] PPV 23 Pneumococcal Polysaccaride 2011-12-17 00:00:00 Comp leted [facility] Hepatitis B Vaccine 2011-12-17 00:00:00 Completed [facility] PPD 2011-12-14 00:00:00 Completed [facility] PPD 2010-10-24 00:00:00 Completed [facility] Tdap Tetanus, diphtheria, acellular pertussis Vaccine 2009-10-31 00:00:00 [facility] Vital Signs Vital Name Observation Time Observation Value Comments Source Weight 2019-12-15 20:19:00 175 [lb_av] [facility] BMI (Body Mass Index) 2019-12-15 20:19:00 23.1 kg/m2 [facility] Weight 2019-12-14 07:55:00 210 [lb_av] [facility] BMI (Body Mass Index) 2019-12-14 07:55:00 37.2 kg/m2 [facility] Body Temperature 2019-04-04 12:48:00 97.9 [degF] [facility] Procedures Procedure Date / Time Performed Performing Clinician Ana Maria luis Computed tomography of abdomen and pelvis with contrast 00:00:00 [facility] Computed tomography of abdomen and pelvis with contrast 2018 00:00:00 BRANDO MONTGOMERY [facility] INSPECTION OF LOWER INTESTINAL TRACT, ENDO 2019-03-17 00:00:00 [facility] INSPECTION OF UPPER INTESTINAL TRACT, ENDO 2019-03-17 00:00:[address] [facility] [address] of abdomen and pelvis without contrast 2019-03-14 00:00:00 [facility] Computed tomography of abdomen and pelvis with contrast 2018 00:00:00 PAULINE DAMON [facility] Plan of Care Planned Activity Planned Date Details Comments Source Future Scheduled Test 2020-02-01 00:00:00 IMM Influenza Seas onal Jan to July (>/= 19 yrs) [code = IMM Influenza Seasonal Jan to July (>/= 19 yrs)] [facility] Instructions Vomiting - Adult [facility] Encounters Start Date/Time End Date/Time Encounter Type Admission Type Attendi [facility] Care Department Encounter ID Source 2019-12-15 20:45:00 2019-12-15 20:45:00 Registered Emergency Room [facility] [id number] [facility] 2019-12-14 08:05:00 2019-12-14 11:10:00 Departed Emergency Room 1 GEOVANI MONROY [facility] [id number] HARDY [facility] 2019-04-04 07:55:00 2019-04-04 13:33:00 Departed Emergency Room 1 BRANDO MONTGOMERY [facility] [id number] [facility] 2019-03-26 16:20:00 2019-03-26 16:53:00 Departed Emergency Room [facility] [id number] [facility] 2019-03-15 11:39:00 2019-03-17 19:25:00 Discharged Inpatient 1 WESLY SPICER [facility] [id number] [facility] 2019-03-13 11:16:00 2019-03-13 16:09:00 Departed Emergency Room 1 PAULINE DAMON [facility] [id number] [facility] 2018-01-06 20:36:16 2018-01-06 20:36:16 Emergency [facility] [id number] [facility] 2016-09-16 15:48:00 2016-09-16 15:48:00 Emergency E [facility] [id number] [facility] Results Test Description Test Time Test Comments Results Result Comments Source Blood leukocytes automated count (number/volume) 2019-12-15 20:40:00 Test Item White Blood Count (test code = 6690-2) 7.38 4.8-10.8 [facility] count (number/volume)2019-12-15 20:40:00* Test Item Value Reference Range Interpretation Comments Red Blood Count (test code = 789-8) 4.22 4.3-5.7 [facility] measurement (moles/volume)2019-12-15 20:40:00* Test Item Value Reference Range Interpretation Comments Hemoglobin (test code = 24650-2) 13.8 14.0-18.0 [facility] hematocrit (volume fraction)2019-12-15 20:40:00* Test Item Value Reference Range Interpretation Comments Hematocrit (test code = 4544-3) 41.0 38.2-49.6 [facility] eryth[facility] mean corpuscular [id number] 20:40:00* Test Item Value Reference Range Interpretation Comments Mean Corpuscular Volume (test code = 787-2) 97.2 81-99 [facility] mean corpuscular hemoglobin (mass per erythrocyte)2019-12-15 20:40:00* Test Item Value Reference Range Interpretation Comments Mean Corpuscular Hemoglobin (test code = 785-6) 32.7 28-32 [facility] eryth[facility] mean corpuscular hemoglobin concentration measurement (mass/volume)2019-12-15 20:40:00* Test Item Value Reference Range Interpretation Comments Mean Corpuscular Hemoglobin Concent (test code = 786-4) 33.7 31-35 [facility] HospitalRDW QewWf-Vmu2818-35-14 20:40:00* Test Item Value Reference Range Interpretation Comments Red Cell Distribution Width (test code = 86824-0) 11.9 11.7 -14.4 [facility] platelet count (count/volume)2019-12-15 20:40:00* Test Item Value Reference Range Interpretation Comments Platelet Count (test code = 777-3) 242 140-360 [facility] blood segmented neutrophil count as percentage of total egwxhnzevq9321-47-02 20:40:00* Test Item Value Reference Range Interpretation Comments Neutrophils (%) (Auto) (test code = 45583-9) 75.8 38.7-80.0 [facility] lymphocyte count as percentage ot total pnohovnfqw1274-15-69 20:40:00* Test Item Value Reference Range Interpretation Comments Lymphocytes (%) (Auto) (test code = 736-9) 19.8 18.0-39.1 [facility] blood monocyte count as percentage of total gpkxxhqrrg3675-61-48 20:40:00* Test Item Value Reference Range Interpretation Comments Monocytes (%) (Auto) (test code = 5905-5) 3.9 4.4-11.3 [facility] blood eosinophil count as percentage of total dicmmojoia6593-97-56 20:40:00* Test Item Value Reference Range Interpretation Comments Eosinophils (%) (Auto) (test code = 713-8) 0.0 0.0-6.0 [facility] blood basophil count as percentage of total tcijcmkdzv6663-64-80 20:40:00* Test Item Value Reference Range Interpretation Comments Basophils (%) (Auto) (test code = 706-2) 0.4 0.0-1.0 [facility] HospitalFluoroscopic procedure less than one hour tcxoeeeh6550-20-18 20:40:00* Test Item Value Reference Range Interpretation Comments IM GRANULOCYTES % (test code = IM GRANULOCYTES %) 0.1 0.0- 1.0 [facility]Autom[facility] blood neutrophil count 2019-12-15 20:40:00* Test Item Value Reference Range Interpretation Comments Neutrophils # (Auto) (test code = 751-8) 5.6 2.1-6.9 [facility] lymphocytes count (number/volume) 2019-12-15 20:40:00* Test Item Value Reference Range Interpretation Comments Lymphocytes # (Auto) (test code = 37618-4) 1.5 1.0-3.2 [facility] monocytes automated count (number/volume)2019-12-15 20:40:00* Test Item Value Reference Range Interpretation Comments Monocytes # (Auto) (test code = 742-7) 0.3 0.2-0.8 [facility] HospitalAutom[facility] blood eosinophil count 2019-12-15 20:40:00* Test Item Value Reference Range Interpretation Comments Eosinophils # (Auto) (test code = 711-2) 0.0 0.0-0.4 [facility] HospitalAutomated blood basophil count (count/volume)2019-12-15 20:40:00* Test Item Value Reference Range Interpretation Comments Basophils # (Auto) (test code = 704-7) 0.0 0.0-0.1 [facility] HospitalFluoroscopic procedure less than one hour twhnjqai1648-08-46 20:40:00* Test Item Value Reference Range Interpretation Comments Absolute Immature Granulocyte (auto (jourdan t code = Absolute Immature Granulocyte (auto) 0.01 0-0.1 [facility] sodium measurement (moles/volume)2019-12-15 20:40:00* Test Item Value Reference Range Interpretation Comments Sodium Level (test code = 2951-2) 142 136-145 [facility] potassium measurement (moles/volume)2019-12-15 20:40:00* Test Item Value Reference Range Interpretation Comments Potassium Level (test code = 2823-3) 3.6 3.5-5.1 [facility] chloride measurement (moles/volume)2019-12-15 20:40:00* Test Item Value Reference Range Interpretation Comments Chloride Level (test code = 2075-0) 108 98-107 [facility] carbon dioxide, total measurement (moles/volume)2019-12-15 20:40:00* Test Item Value Reference Range Interpretation Comments Carbon Dioxide Level (test code = 2028-9) 20 22-29 [facility] anion [id number] 20:40:00* Test Item Value Reference Range Interpretation Comments Anion Gap (test code = 45482-1) 17.6 8-16 [facility] urea nitrogen measurement (mass/volume)2019-12-15 20:40:00* Test Item Value Reference Range Interpretation Comments Blood Urea Nitrogen (test code = 3094-0) 14 7-26 [facility] creatinine measurement (mass/volume)2019-12-15 20:40:00* Test Item Value Reference Range Interpretation Comments Creatinine (test code = 2160-0) 1.55 0.72-1.25 [facility] urea nitrogen/creatinine mass dgdgu6632-80-39 20:40:00* Test Item Value Reference Range Interpretation Comments BUN/Creatinine Ratio (test code = 3097-3) 9 6-25 [facility] HospitalEstimated glomerular filtration rate (GFR) oypnpzhfqufth0144-87-10 20:40:00* Test Item Value Reference Range Interpretation Comments Estimat Glomerular Filtration Rate (test code = 024870732) 60 >60 Ranges were taken from the National Kidney Disease Education Program and the [facility] literature.Reference ranges:60 or greater: Lzvcxi62-76 ( for 3 consecutive months): Chronic kidney disease 15 or less: Kidney failureColumbus Community HospitalGlucose kwqqenjyiye9461-75-47 20:40:00* Test Item Value Reference Range Interpretation Comments Glucose Level (test code = YRQ9416) 123 74-118 [facility] calcium measurement (mass/volume)2019-12-15 20:40:00* Test Item Value Reference Range Interpretation Comments Calcium Level (test code = 15012-2) 10.0 8.4-10.2 [facility] total bilirubin measurement (mass/volume)2019-12-15 20:40:00* Test Item Value Reference Range Interpretation Comments Total Bilirubin (test code = 1975-2) 0.9 0.2-1.2 [facility] HospitalFluoroscopic procedure less than one hour pdwdxbcl3904-60-25 20:40:00* Test Item Value Reference Range Interpretation Comments Aspartate Amino Transf (AST/SGOT) (test code = Aspartate Amino Transf (AST/SGOT)) 18 5-34 [facility]ere[facility] or plasma alanine aminotransferase measurement (enzymatic activity/volume)2019-12-15 20:40:00* Test Item Value Reference Range Interpretation Comments Alanine Aminotransferase (ALT/SGPT) (test code = 1742-6) 18 0-55 [facility] protein measurement (mass/volume)2019-12-15 20:40:00* Test Item Value Reference Range Interpretation Comments Total Protein (test code = 2885-2) 8.8 6.5-8.1 [facility] plasma albumin measurement (mass/volume)2019-12-15 20:40:00* Test Item Value Reference Range Interpretation Comments Albumin (test code = 1751-7) 4.8 3.5-5.0 [facility] HospitalPlasma globulin measurement (mass/volume) 2019-12-15 20:40:00* Test Item Value Reference Range Interpretation Comments Globulin (test code = 02616-3) 4.0 2.3-3.5 [facility] albumin/globulin mass fuyab8973-75-30 20:40:00* Test Item Value Reference Range Interpretation Comments Albumin/Globulin Ratio (test code = 1759-0) 1.2 0.8-2.0 [facility] plasma alkaline phosphatase measurement (enzymatic activity/volume)2019-12-15 20:40:00* Test Item Value Reference Range Interpretation Comments Alkaline Phosphatase (test code = 6768-6) 89 40-150 [facility]ere[facility] or plasma lipase measurement (enzymatic activity/volume)2019-12-15 20:40:00* Test Item Value Reference Range Interpretation Comments Lipase (test code = 3040-3) 15 8-78 [facility] HospitalCT [facility]BD[facility]/PELVIS [id number] 10:01:00 [facility] [address] [address] Patient Name: QUYEN KIM MR #: [id number] : 1980 Age/Sex: 39/M Req #: [id number] Adm Physician: Ordered by: GEOVANI MONROY DO Report #: [id number] Location: ER Room/Bed: Procedure: [id number] CT/CT ABDOMEN /PELVIS W Exam Date: 12/14/19 Exam Time: 0938 REPORT STATUS: Signed EXAMINATION: CT of the abdomen and pelvis with contrast. TECHNIQUE: Helical CT images of the abdomen and pelvis were performed from the lung bases to the lesser troch anters after the intravenous administration of 150 cc of Isovue 300 and the or al administration of none. Coronal and sagittal reformatted images were obtai olegario. Dose modulation, iterative reconstruction, and/or weight based adjustment of the mA/kV was utilized to reduce the radiation dose to as low as reasonably achievable. COMPARISON: 04/04/2019 CLINICAL HISTORY:Abdominal pain, nausea and vomiting. DISCUSSION: ABDOMEN/PELVIS: LOWER THORA X:5 cm bulla in the right lower lung. No pneumonia. HEPATOBILIARY: 3 enhanc ing foci in the left hepatic lobe, largest 1.2 cm image 27, likely flash filli ng hemangioma. Appear present on prior CT, however due to differences in phase not well visualized. No intra-or extrahepatic biliary ductal dilation. The gallbladder is normal. SPLEEN: No splenomegaly. PANCREAS: No focal masses or ductal dilatation. ADRENALS: No adrenal nodules. KIDNEYS/UR ETERS: No obstruction. Bilateral renal cysts. No solid masses. Stable 6 mm lef t renal calculus. PELVIC ORGANS/BLADDER: The bladder is normal. CHUCK TONEUM/RETROPERITONEUM: No free air or fluid. LYMPH NODES: No intra-abdomin al, retroperitoneal, pelvic or inguinal lymphadenopathy. VESSELS: The chris iac trunk,superior and inferior mesenteric and bilateral renal arteries are p atent The portal, superior mesenteric and splenic veins are patent. GI T RACT: No distention or wall thickening. BONES AND SOFT TISSUE: No bony dest ructive lesions. Bone island in the left iliac bone. Degenerative disease L 5-S1. IMPRESSION: No acute CT finding. Stable nonobstructing 6 m m left renal calculus. Signed by: Dr. Roxie Montes M.D. on 12/14/2019 10: 10 AM Dictated By: ROXIE MONTES MD 1010 Transcribed By: JEANNE on 12/14/19 1010 CO PY TO: GEOVANI MONROY DO Urine color caqrkasmieesl7092-69-91 09:35:00* Test Item Value Reference Range Interpretation Comments Urine Color (test code = 5778-6) ORANGE YELLOW [facility] HospitalUrine bgjiqsj4608-95-89 09:35:00* Test Item Value Reference Range Interpretation Comments Urine Clarity (test code = 68207-9) SL CLOUDY CLEAR [facility] Centerpecific gravity of Urine by Test strip 2019-12-14 09:35:00* Test Item Value Reference Range Interpretation Comments Urine Specific [place] (test code = 5811-5) >=1.030 1.010-1.02 5 [facility] HospitalU[facility] pH measurement by automated test uaumf8417-35-31 09:35:00* Test Item Value Reference Range Interpretation Comments Urine pH (test code = 83674-5) 6 5-7 [facility] leukocyte esterase detection by jpzbpvlh9607-80-53 09:35:00* Test Item Value Reference Range Interpretation Comments Urine Leukocyte Esterase (test code = 5799-2) NEGATIVE NEGATIVE [facility] HospitalU[facility] nitrite cboipzrhw6140-02-11 09:35:00* Test Item Value Reference Range Interpretation Comments Urine Nitrite (test code = 05569-9) NEGATIVE NEGATIVE [facility] HospitalU[facility] protein measurement by test strip (mass/volume)2019-12-14 09:35:00* Test Item Value Reference Range Interpretation Comments Urine Protein (test code = 5804-0) 2+ NEGATIVE [facility] glucose bjdeufdwo0570-49-93 09:35:00* Test Item Value Reference Range Interpretation Comments Urine Glucose (UA) (test code = 2349-9) NEGATIVE NEGATIVE [facility] HospitalUrine ketones detection by automated test gklyb6487-90-48 09:35:00* Test Item Value Reference Range Interpretation Comments Urine Ketones (test code = 88205-7) 2+ NEGATIVE [facility] opiates screening osjy1030-46-42 09:35:00* Test Item Value Reference Range Interpretation Comments Urine Opiates Screen (test code = 04353-5) POSITIVE NEGATIVE This test provides only a screen. Positive results should be repeated by a confi rmatory test.[facility] HospitalBarbiturates screen, urine 2019-12-14 09:35:00* Test Item Value Reference Range Interpretation Comments Urine Barbiturates Screen (test code = 918736024) NEGATIVE NEGA TIVE [facility] HospitalUrine phencyclidine detection by screening lzufcl3489-74-22 09:35:00* Test Item Value Reference Range Interpretation Comments Urine Phencyclidine Screen (test code = 24021-6) NEGATIVE NEGAT ANGY [facility] HospitalUrine amphetamines detection by screen method > 1000 ng/kR7270-44-45 09:35:00* Test Item Value Reference Range Interpretation Comments Urine Amphetamines Screen (test code = 00235-5) NEGATIVE NEGATI VE [facility] HospitalFluoroscopic procedure less than one hour [id number] 09:35:00* Test Item Value Reference Range Interpretation Comments Urine Methamphetamines Screen (test code = Urine Metha mphetamines Screen) NEGATIVE NEGATIVE [facility] benzodiazepines detection by screening einuwd6030-48-27 09:35:00* Test Item Value Reference Range Interpretation Comments Urine Benzodiazepines Screen (test code = 78827-2) NEGATIVE NEG ATIVE [facility] cocaine measurement (mass/volume) 2019-12-14 09:35:00* Test Item Value Reference Range Interpretation Comments Urine Cocaine Screen (test code = 3398-5) POSITIVE NEGATIVE This test provides only a screen. Positive results should be repeated by a confi rmatory test.[facility] cannabinoids detection by screening omniej6843-66-73 09:35:00* Test Item Value Reference Range Interpretation Comments Urine Cannabinoids Screen (test code = 06300-3) POSITIVE NEGATI VE This test provides only a screen. Positive results should be repeated by a confi rmatory test.[facility] methadone screen 2019-12-14 09:35:00* Test Item Value Reference Range Interpretation Comments Urine Methadone Screen (test code = 38998-7) NEGATIVE NEGATIVE THESE RESULTS ARE FOR MEDICAL TREATMENT ONLYTHIS REPORT CONTAINS UNCONFIR MED SCREENING RESULTS*POSITIVE RESULTS WILL BE CONFIRMED BY REFERENCE LAB UPON R EQUEST CUT-OFFDRUG CLASS CONCENTRATION ng/mLAmphetamines 1000Methamphetamines 1000Cocaine Metabolite 300Opiate 300Phencyc lidine 25Cannabinoid 50Barbiturates 300Benzodiazepine 300Methadone 300[facility] urobilinogen measurement by test strip (mass/volume)2019-12-14 09:35:00* Test Item Value Reference Range Interpretation Comments Urine Urobilinogen (test code = 07714-4) 0.2 0.2-1 [facility] total bilirubin measurement (mass/volume)2019-12-14 09:35:00* Test Item Value Reference Range Interpretation Comments Urine Bilirubin (test code = 1978-6) SMALL NEGATIVE [facility] HospitalU[facility] erythrocytes taciqmzsj0459-57-30 09:35:00* Test Item Value Reference Range Interpretation Comments Urine Blood (test code = 81820-0) MODERATE NEGATIVE [facility] HospitalAutomated urine sediment leukocyte count by microscopy (number/high power field)2019-12-14 09:35:00* Test Item Value Reference Range Interpretation Comments Urine WBC (test code = 5821-4) 11-20 0-5 [facility] HospitalErythrocytes detection in urine sediment by light nfrmawmxhf6390-13-48 09:35:00* Test Item Value Reference Range Interpretation Comments Urine RBC (test code = 15848-1) 6-10 0-5 [facility] HospitalBacteria detection in urine sediment by light czaibarwun4330-38-12 09:35:00* Test Item Value Reference Range Interpretation Comments Urine Bacteria (test code = 38452-0) RARE NONE [facility] HospitalEpithelial cells detection in urine sediment by light xtliornzad6928-53-47 09:35:00* Test Item Value Reference Range Interpretation Comments Urine Epithelial Cells (test code = 81497-9) FEW NONE [facility] HospitalUrine color edbkpdozgemjx1330-28-45 09:35:00* Test Item Value Reference Range Interpretation Comments Urine Color (test code = 5778-6) ORANGE YELLOW [facility] HospitalUrine dwjybxz2166-78-86 09:35:00* Test Item Value Reference Range Interpretation Comments Urine Clarity (test code = 16618-5) SL CLOUDY CLEAR [facility] by Test strip 2019-12-14 09:35:00* Test Item Value Reference Range Interpretation Comments Urine Specific [place] (test code = 5811-5) >=1.030 1.010-1.02 5 [facility] HospitalU[facility] pH measurement by automated test lkqbs8445-62-28 09:35:00* Test Item Value Reference Range Interpretation Comments Urine pH (test code = 54334-7) 6 5-7 [facility] HospitalU[facility] leukocyte esterase detection by kmzittkk5433-12-65 09:35:00* Test Item Value Reference Range Interpretation Comments Urine Leukocyte Esterase (test code = 5799-2) NEGATIVE NEGATIVE [facility] HospitalU[facility] nitrite rfjlxglvr3796-58-68 09:35:00* Test Item Value Reference Range Interpretation Comments Urine Nitrite (test code = 70795-9) NEGATIVE NEGATIVE [facility] HospitalU[facility] protein measurement by test strip (mass/volume)2019-12-14 09:35:00* Test Item Value Reference Range Interpretation Comments Urine Protein (test code = 5804-0) 2+ NEGATIVE [facility] HospitalU[facility] glucose eokfzoome1017-62-03 09:35:00* Test Item Value Reference Range Interpretation Comments Urine Glucose (UA) (test code = 2349-9) NEGATIVE NEGATIVE [facility] HospitalUrine ketones detection by automated test dwxwv9851-46-54 09:35:00* Test Item Value Reference Range Interpretation Comments Urine Ketones (test code = 15633-0) 2+ NEGATIVE [facility] HospitalUrine opiates screening fats0197-18-20 09:35:00* Test Item Value Reference Range Interpretation Comments Urine Opiates Screen (test code = 55942-1) POSITIVE NEGATIVE This test provides only a screen. Positive results should be repeated by a confi rmatory test.[facility] HospitalBarbiturates screen, urine 2019-12-14 09:35:00* Test Item Value Reference Range Interpretation Comments Urine Barbiturates Screen (test code = 304576874) NEGATIVE NEGA TIVE [facility] HospitalUrine phencyclidine detection by screening yxzwfo7210-68-05 09:35:00* Test Item Value Reference Range Interpretation Comments Urine Phencyclidine Screen (test code = 11819-1) NEGATIVE NEGAT ANGY [facility] HospitalUrine amphetamines detection by screen method > 1000 ng/sR3314-50-74 09:35:00* Test Item Value Reference Range Interpretation Comments Urine Amphetamines Screen (test code = 55300-6) NEGATIVE NEGATI VE [facility] HospitalFluoroscopic procedure less than one hour qjjkljbb3693-22-69 09:35:00* Test Item Value Reference Range Interpretation Comments Urine Methamphetamines Screen (test code = Urine Metha mphetamines Screen) NEGATIVE NEGATIVE [facility] HospitalUrine benzodiazepines detection by screening hlvvnl6207-97-35 09:35:00* Test Item Value Reference Range Interpretation Comments Urine Benzodiazepines Screen (test code = 03701-0) NEGATIVE NEG ATIVE [facility] HospitalUrine cocaine measurement (mass/volume) 2019-12-14 09:35:00* Test Item Value Reference Range Interpretation Comments Urine Cocaine Screen (test code = 3398-5) POSITIVE NEGATIVE This test provides only a screen. Positive results should be repeated by a confi rmatory test.[facility] HospitalUrine cannabinoids detection by screening doofqn3588-49-46 09:35:00* Test Item Value Reference Range Interpretation Comments Urine Cannabinoids Screen (test code = 47987-0) POSITIVE NEGATI VE This test provides only a screen. Positive results should be repeated by a confi rmatory test.[facility] HospitalUrine methadone screen 2019-12-14 09:35:00* Test Item Value Reference Range Interpretation Comments Urine Methadone Screen (test code = 79474-2) NEGATIVE NEGATIVE THESE RESULTS ARE FOR MEDICAL TREATMENT ONLYTHIS REPORT CONTAINS UNCONFIR MED SCREENING RESULTS*POSITIVE RESULTS WILL BE CONFIRMED BY REFERENCE LAB UPON R EQUEST CUT-OFFDRUG CLASS CONCENTRATION ng/mLAmphetamines 1000Methamphetamines 1000Cocaine Metabolite 300Opiate 300Phencyc lidine 25Cannabinoid 50Barbiturates 300Benzodiazepine 300Methadone 300[facility] HospitalUrine urobilinogen measurement by test strip (mass/volume)2019-12-14 09:35:00* Test Item Value Reference Range Interpretation Comments Urine Urobilinogen (test code = 22323-8) 0.2 0.2-1 [facility] HospitalUrine total bilirubin measurement (mass/volume)2019-12-14 09:35:00* Test Item Value Reference Range Interpretation Comments Urine Bilirubin (test code = 1978-6) SMALL NEGATIVE [facility] HospitalUrine erythrocytes pacuowapk7482-15-19 09:35:00* Test Item Value Reference Range Interpretation Comments Urine Blood (test code = 79932-6) MODERATE NEGATIVE [facility] HospitalAutomated urine sediment leukocyte count by microscopy (number/high power field)2019-12-14 09:35:00* Test Item Value Reference Range Interpretation Comments Urine WBC (test code = 5821-4) 11-20 0-5 [facility] HospitalErythrocytes detection in urine sediment by light copppjlule4216-79-48 09:35:00* Test Item Value Reference Range Interpretation Comments Urine RBC (test code = 09887-8) 6-10 0-5 [facility] HospitalBacteria detection in urine sediment by light pvetblrdjn5366-83-88 09:35:00* Test Item Value Reference Range Interpretation Comments Urine Bacteria (test code = 24130-4) RARE NONE [facility] HospitalEpithelial cells detection in urine sediment by light qedknodeio6211-36-23 09:35:00* Test Item Value Reference Range Interpretation Comments Urine Epithelial Cells (test code = 34777-1) FEW NONE [facility] HospitalBlood leukocytes automated count (number/volume)2019-12-14 08:00:00* Test Item Value Reference Range Interpretation Comments White Blood Count (test code = 6690-2) 8.67 4.8-10.8 [facility] HospitalBlood erythrocytes automated count (number/volume)2019-12-14 08:00:00* Test Item Value Reference Range Interpretation Comments Red Blood Count (test code = 789-8) 4.16 4.3-5.7 [facility] HospitalBlood hemoglobin measurement (moles/volume)2019-12-14 08:00:00* Test Item Value Reference Range Interpretation Comments Hemoglobin (test code = 44614-4) 13.6 14.0-18.0 [facility] HospitalAutomated blood hematocrit (volume fraction)2019-12-14 08:00:00* Test Item Value Reference Range Interpretation Comments Hematocrit (test code = 4544-3) 40.9 38.2-49.6 [facility] HospitalAutomated erythrocyte mean corpuscular cibywo9764-71-10 08:00:00* Test Item Value Reference Range Interpretation Comments Mean Corpuscular Volume (test code = 787-2) 98.3 81-99 [facility] HospitalAutomated erythrocyte mean corpuscular hemoglobin (mass per erythrocyte)2019-12-14 08:00:00* Test Item Value Reference Range Interpretation Comments Mean Corpuscular Hemoglobin (test code = 785-6) 32.7 28-32 [facility] HospitalAutomated erythrocyte mean corpuscular hemoglobin concentration measurement (mass/volume)2019-12-14 08:00:00* Test Item Value Reference Range Interpretation Comments Mean Corpuscular Hemoglobin Concent (test code = 786-4) 33.3 31-35 [facility] HospitalRDW GyiSj-Qsf4158-39-13 08:00:00* Test Item Value Reference Range Interpretation Comments Red Cell Distribution Width (test code = 88016-4) 12.0 11.7 -14.4 [facility] HospitalAutomated blood platelet count (count/volume)2019-12-14 08:00:00* Test Item Value Reference Range Interpretation Comments Platelet Count (test code = 777-3) 206 140-360 [facility] HospitalAutomated blood segmented neutrophil count as percentage of total cotynnhqbu7573-83-55 08:00:00* Test Item Value Reference Range Interpretation Comments Neutrophils (%) (Auto) (test code = 61284-2) 61.8 38.7-80.0 [facility] HospitalAutomated blood lymphocyte count as percentage ot total inhbcatnva0278-33-23 08:00:00* Test Item Value Reference Range Interpretation Comments Lymphocytes (%) (Auto) (test code = 736-9) 30.0 18.0-39.1 [facility] HospitalAutomated blood monocyte count as percentage of total snxxjizlgj9112-33-78 08:00:00* Test Item Value Reference Range Interpretation Comments Monocytes (%) (Auto) (test code = 5905-5) 6.8 4.4-11.3 [facility] HospitalAutomated blood eosinophil count as percentage of total okritcqsvc8958-90-22 08:00:00* Test Item Value Reference Range Interpretation Comments Eosinophils (%) (Auto) (test code = 713-8) 0.5 0.0-6.0 [facility] HospitalAutomated blood basophil count as percentage of total vljtugjcgl4804-33-61 08:00:00* Test Item Value Reference Range Interpretation Comments Basophils (%) (Auto) (test code = 706-2) 0.6 0.0-1.0 [facility] HospitalFluoroscopic procedure less than one hour vatgpitx5630-57-36 08:00:00* Test Item Value Reference Range Interpretation Comments IM GRANULOCYTES % (test code = IM GRANULOCYTES %) 0.3 0.0- 1.0 [facility] HospitalAutomated blood neutrophil count 2019-12-14 08:00:00* Test Item Value Reference Range Interpretation Comments Neutrophils # (Auto) (test code = 751-8) 5.4 2.1-6.9 [facility] HospitalBlood lymphocytes count (number/volume) 2019-12-14 08:00:00* Test Item Value Reference Range Interpretation Comments Lymphocytes # (Auto) (test code = 27194-6) 2.6 1.0-3.2 [facility] HospitalBlood monocytes automated count (number/volume)2019-12-14 08:00:00* Test Item Value Reference Range Interpretation Comments Monocytes # (Auto) (test code = 742-7) 0.6 0.2-0.8 [facility] HospitalAutomated blood eosinophil count 2019-12-14 08:00:00* Test Item Value Reference Range Interpretation Comments Eosinophils # (Auto) (test code = 711-2) 0.0 0.0-0.4 [facility] HospitalAutomated blood basophil count (count/volume)2019-12-14 08:00:00* Test Item Value Reference Range Interpretation Comments Basophils # (Auto) (test code = 704-7) 0.1 0.0-0.1 [facility] HospitalFluoroscopic procedure less than one hour kyplzvrp8393-01-15 08:00:00* Test Item Value Reference Range Interpretation Comments Absolute Immature Granulocyte (auto (jourdan t code = Absolute Immature Granulocyte (auto) 0.03 0-0.1 [facility] plasma sodium measurement (moles/volume)2019-12-14 08:00:00* Test Item Value Reference Range Interpretation Comments Sodium Level (test code = 2951-2) 145 136-145 [facility]ererum or plasma potassium measurement (moles/volume)2019-12-14 08:00:00* Test Item Value Reference Range Interpretation Comments Potassium Level (test code = 2823-3) 4.0 3.5-5.1 [facility]ererum or plasma chloride measurement (moles/volume)2019-12-14 08:00:00* Test Item Value Reference Range Interpretation Comments Chloride Level (test code = 2075-0) 112 98-107 [facility]ererum or plasma carbon dioxide, total measurement (moles/volume)2019-12-14 08:00:00* Test Item Value Reference Range Interpretation Comments Carbon Dioxide Level (test code = 2028-9) 17 22-29 [facility]ererum or plasma anion grb6254-08-82 08:00:00* Test Item Value Reference Range Interpretation Comments Anion Gap (test code = 49609-3) 20.0 8-16 [facility]ererum or plasma urea nitrogen measurement (mass/volume)2019-12-14 08:00:00* Test Item Value Reference Range Interpretation Comments Blood Urea Nitrogen (test code = 3094-0) 15 7-26 [facility]ererum or plasma creatinine measurement (mass/volume)2019-12-14 08:00:00* Test Item Value Reference Range Interpretation Comments Creatinine (test code = 2160-0) 1.44 0.72-1.25 [facility]ererum or plasma urea nitrogen/creatinine mass sksns4591-53-44 08:00:00* Test Item Value Reference Range Interpretation Comments BUN/Creatinine Ratio (test code = 3097-3) 10 6-25 [facility] HospitalEstimated glomerular filtration rate (GFR) tfugfwdhzwaxf0854-56-75 08:00:00* Test Item Value Reference Range Interpretation Comments Estimat Glomerular Filtration Rate (test code = 582881979) > 60 >60 Ranges were taken from the National Kidney Disease Education Program and the [facility] literature.Reference ranges:60 or greater: Cjaprl82-82 ( for 3 consecutive months): Chronic kidney disease 15 or less: Kidney failureColumbus Community HospitalGlucose tmavblshpmt3708-68-90 08:00:00* Test Item Value Reference Range Interpretation Comments Glucose Level (test code = BTU8299) 101 74-118 [facility]ererum or plasma calcium measurement (mass/volume)2019-12-14 08:00:00* Test Item Value Reference Range Interpretation Comments Calcium Level (test code = 29651-2) 10.7 8.4-10.2 [facility]ererum or plasma total bilirubin measurement (mass/volume)2019-12-14 08:00:00* Test Item Value Reference Range Interpretation Comments Total Bilirubin (test code = 1975-2) 0.9 0.2-1.2 [facility] HospitalFluoroscopic procedure less than one hour uheohqub9856-03-06 08:00:00* Test Item Value Reference Range Interpretation Comments Aspartate Amino Transf (AST/SGOT) (test code = Aspartate Amino Transf (AST/SGOT)) 17 5-34 [facility]ererum or plasma alanine aminotransferase measurement (enzymatic activity/volume)2019-12-14 08:00:00* Test Item Value Reference Range Interpretation Comments Alanine Aminotransferase (ALT/SGPT) (test code = 1742-6) 15 0-55 [facility]ererum or plasma protein measurement (mass/volume)2019-12-14 08:00:00* Test Item Value Reference Range Interpretation Comments Total Protein (test code = 2885-2) 9.1 6.5-8.1 [facility]ererum or plasma albumin measurement (mass/volume)2019-12-14 08:00:00* Test Item Value Reference Range Interpretation Comments Albumin (test code = 1751-7) 4.9 3.5-5.0 [facility] HospitalPlasma globulin measurement (mass/volume) 2019-12-14 08:00:00* Test Item Value Reference Range Interpretation Comments Globulin (test code = 01593-0) 4.2 2.3-3.5 [facility]ererum or plasma albumin/globulin mass ehslh3366-32-85 08:00:00* Test Item Value Reference Range Interpretation Comments Albumin/Globulin Ratio (test code = 1759-0) 1.2 0.8-2.0 [facility]ererum or plasma alkaline phosphatase measurement (enzymatic activity/volume)2019-12-14 08:00:00* Test Item Value Reference Range Interpretation Comments Alkaline Phosphatase (test code = 6768-6) 94 40-150 [facility]ererum or plasma creatine kinase measurement (enzymatic activity/volume)2019-12-14 08:00:00* Test Item Value Reference Range Interpretation Comments Creatine Kinase (test code = 2157-6) 57 30-200 [facility]ererum or plasma creatine kinase MB measurement (mass/volume)2019-12-14 08:00:00* Test Item Value Reference Range Interpretation Comments Creatine Kinase MB (test code = 24705-2) 0.40 0-5.0 [facility] HospitalTroponin I measurement by highly sensitive enzyme csvmmnqmbyb4211-87-69 08:00:00* Test Item Value Reference Range Interpretation Comments Troponin I (test code = 44107-5) 0.004 0-0.300 [facility]ererum or plasma lipase measurement (enzymatic activity/volume)2019-12-14 08:00:00* Test Item Value Reference Range Interpretation Comments Lipase (test code = 3040-3) 19 8-78 [facility]ererum or plasma creatine kinase measurement (enzymatic activity/volume)2019-12-14 08:00:00* Test Item Value Reference Range Interpretation Comments Creatine Kinase (test code = 2157-6) 57 30-200 [facility]ererum or plasma creatine kinase MB measurement (mass/volume)2019-12-14 08:00:00* Test Item Value Reference Range Interpretation Comments Creatine Kinase MB (test code = 69886-6) 0.40 0-5.0 [facility] HospitalTroponin I measurement by highly sensitive enzyme ndvpjoumhut7321-80-89 08:00:00* Test Item Value Reference Range Interpretation Comments Troponin I (test code = 12162-4) 0.004 0-0.300 [facility] HospitalUrine Opiates Pxvxze3971-08-10 13:43:00* Test Item Value Reference Range Interpretation Comments Urine Opiates Screen (test code = 36353-3) NEGATIVE NEGATIVE ALL TESTS PERFORMED MANUALLY ON [employer] TOX/SEE TEST --- 04/04/19 1340 ---OPIATE S previously reported as: N ALL TESTS PERFORMED MANUALLY ON [employer] TOX/SEE TEST [facility] HospitalUrine Barbiturates Fgfoey0356-14-01 13:43:00* Test Item Value Reference Range Interpretation Comments Urine Barbiturates Screen (test code = 884427900) NEGATIVE NEGA TIVE --- 04/04/19 134 ---BARBITURATES [facility] Sthkki4621-24-76 13:43:00* Test Item Value Reference Range Interpretation Comments Urine Phencyclidine Screen (test code = 37619-7) NEGATIVE NEGAT ANGY --- 04/04/19 1341 ---PCP previously reported as: [facility] Amphetamines Dpqcgh7199-71-40 13:43:00* Test Item Value Reference Range Interpretation Comments Urine Amphetamines Screen (test code = 46988-9) NEGATIVE NEGATI VE --- 04/04/19 134 ---AMPHETAMINES previously reported as: [facility] Methamphetamines Ygqulv5482-39-17 13:43:00* Test Item Value Reference Range Interpretation Comments Urine Methamphetamines Screen (test code = Urine Metha mphetamines Screen) NEGATIVE NEGATIVE --- 04/04/191341 ---MAMP previously reported as: [facility] Benzodiazepines Hqjmyw0941-64-52 13:43:00* Test Item Value Reference Range Interpretation Comments Urine Benzodiazepines Screen (test code = 52339-7) NEGATIVE NEG ATIVE --- 04/04/19 1342 ---BENZODIAZEPINES previously reported as: [facility] Cocaine Vlhluo6543-15-44 13:43:00* Test Item Value Reference Range Interpretation Comments Urine Cocaine Screen (test code = 3398-5) NEGATIVE NEGATIVE --- 04/04/19 1342 ---COCAINE previously reported as: [facility] Cannabinoids Teacmf4985-09-40 13:43:00* Test Item Value Reference Range Interpretation Comments Urine Cannabinoids Screen (test code = 58269-1) POSITIVE NEGATI VE H This test provides [...] 300Phencyclidine 25Cannabinoid 50Barbiturates 300Benzodi azepine 300Methadone 300[facility] CenterU[facility] Methadone Iotjxg1166-77-10 13:43:00* Test Item Value Reference Range Interpretation Comments Urine Methadone Screen (test code = 08756-6) POSITIVE NEGATIVE H This test provides only a screen. Positive results should be repeated by a confi rmatory test. --- 04/04/19 1343 ---METHADONE previously reported as: P THE SE RESULTS ARE FOR MEDICAL TREATMENT ONLYTHIS REPORT CONTAINS UNCONFIRMED SC REENING RESULTS*POSITIVE RESULTS WILL BE CONFIRMED BY REFERENCE LAB UPON REQUEST CUT-OFFDRUG CLASS CONCENTRATION ng/mLAmphetamines 1000Methamphetamines 1000Cocaine Metabolite 300Opiate 300Phencyclidine 25Cannabinoid 50Barbiturates 300 Benzodiazepine 300Methadone 300[facility] CenterCT [facility]PELVIS W4858-91-92 12:24:00 [facility] [address] [place] [address] Patient Name: QUYEN KIM MR #: [id number] : 1980 Age/Sex: 38/M Req #: [id number] Adm Physician: Ordered by: BRANDO MONTGOMERY MD Report #: [id number] Location: ER Room/Bed: Procedure: [id number] CT/CT ABDOMEN/PELVIS W Exam Date: 04/04/19 Exam [...] Color (test code = 5778-6) YELLOW YELLOW [facility] Czibyyq3841-81-55 11:38:00* Test Item Value Reference Range Interpretation Comments Urine Clarity (test code = 73973-0) CLEAR CLEAR [facility] HospitalUrine Specific Blexyop9027-16-53 11:38:00 * Test Item Value Reference Range Interpretation Comments Urine Specific [place] (test code = 5811-5) 1.010 1.010-1.02 5 [facility] HospitalUrine xK1279-97-89 11:38:00* Test Item Value Reference Range Interpretation Comments Urine pH (test code = 41064-3) 6.5 5-7 [facility] HospitalU[facility] Leukocyte Alyzssxj2003-53-60 11:38:00* Test Item Value Reference Range Interpretation Comments Urine Leukocyte Esterase (test code = 5799-2) NEGATIVE NEGATIVE [facility] HospitalUrine Wzfikyj0655-93-82 11:38:00* Test Item Value Reference Range Interpretation Comments Urine Nitrite (test code = 18235-3) NEGATIVE NEGATIVE [facility] Kvvwwqa8059-18-37 11:38:00* Test Item Value Reference Range Interpretation Comments Urine Protein (test code = 5804-0) TRACE NEGATIVE H [facility] HospitalUrine Glucose (UA)2019-04-04 11:38:00* Test Item Value Reference Range Interpretation Comments Urine Glucose (UA) (test code = 2349-9) NEGATIVE NEGATIVE [facility] HospitalUrine Adfluvo6238-34-26 11:38:00* Test Item Value Reference Range Interpretation Comments Urine Ketones (test code = 62464-7) NEGATIVE NEGATIVE [facility] HospitalUrine Dcguhvhbfhum6866-81-33 11:38:00* Test Item Value Reference Range Interpretation Comments Urine Urobilinogen (test code = 60654-9) 0.2 0.2-1 [facility] HospitalU[facility] Fksadzjxq1005-30-49 11:38:00* Test Item Value Reference Range Interpretation Comments Urine Bilirubin (test code = 1978-6) NEGATIVE NEGATIVE [facility] Ocpub3072-07-70 11:38:00* Test Item Value Reference Range Interpretation Comments Urine Blood (test code = 50127-0) NEGATIVE NEGATIVE [facility] HMM8469-55-71 11:38:00* Test Item Value Reference Range Interpretation Comments Urine WBC (test code = 5821-4) 0-5 0-5 [facility] YLX2049-84-31 11:38:00* Test Item Value Reference Range Interpretation Comments Urine RBC (test code = 52147-0) 0-5 0-5 [facility] Bajbccna3215-05-71 11:38:00* Test Item Value Reference Range Interpretation Comments Urine Bacteria (test code = 20194-0) RARE NONE [facility] HospitalU[facility] Epithelial Yqcqe5550-96-51 11:38:00 * Test Item Value Reference Range Interpretation Comments Urine Epithelial Cells (test code = 65131-9) FEW NONE [facility] Ohujw7810-62-60 11:26:00* Test Item Value Reference Range Interpretation Comments Sodium Level (test code = 2951-2) 137 136-145 [facility] HospitalPotassium Qfsan7511-46-07 11:26:00* Test Item Value Reference Range Interpretation Comments Potassium Level (test code = 2823-3) 3.7 3.5-5.1 [facility] HospitalChloride Gnoqt2547-84-61 11:26:00* Test Item Value Reference Range Interpretation Comments Chloride Level (test code = 2075-0) 105 98-107 [facility] HospitalCarbon Dioxide Lvkfa7062-20-29 11:26:00* Test Item Value Reference Range Interpretation Comments Carbon Dioxide Level (test code = 2028-9) 20 22-29 L [facility] HospitalAnion Fsy1449-24-66 11:26:00* Test Item Value Reference Range Interpretation Comments Anion Gap (test code = 66553-7) 15.7 8-16 [facility] HospitalBlood Urea Fsptdncl4976-13-26 11:26:00* Test Item Value Reference Range Interpretation Comments Blood Urea Nitrogen (test code = 3094-0) 10 7-26 [facility] HospitalCreatinine2019-12-03 11:26:00* Test Item Value Reference Range Interpretation Comments Creatinine (test code = 2160-0) 1.35 0.72-1.25 H [facility] HospitalBUN/Creatinine Ypuof8397-68-25 11:26:00* Test Item Value Reference Range Interpretation Comments BUN/Creatinine Ratio (test code = 3097-3) 7 6-25 [facility] HospitalEstimat Glomerular Filtration Rate 2019-04-04 11:26:00* Test Item Value Reference Range Interpretation Comments Estimat Glomerular Filtration Rate (test code = 454158200) > 60 >60 Ranges were taken from the National Kidney Disease Education Program and the [facility] [employer] literature.Reference ranges:60 or greater: Dzokxz18-87 ( for 3 consecutive months): Chronic kidney disease 15 or less: Kidney failureColumbus Community HospitalGlucose Hrflm4489-90-74 11:26:00* Test Item Value Reference Range Interpretation Comments Glucose Level (test code = VSQ5817) 106 74-118 [facility] HospitalCalcium Xykar2547-24-99 11:26:00* Test Item Value Reference Range Interpretation Comments Calcium Level (test code = 65322-0) 9.8 8.4-10.2 [facility] HospitalMagnesium Sjyqz6633-27-83 11:26:00* Test Item Value Reference Range Interpretation Comments Magnesium Level (test code = 64078-6) 1.8 1.3-2.1 [facility] HospitalTotal Kfkbceinb2800-96-17 11:26:00* Test Item Value Reference Range Interpretation Comments Total Bilirubin (test code = 1975-2) 0.7 0.2-1.2 [facility] HospitalAspartate Amino Transf (AST/SGOT) 2019-04-04 11:26:00* Test Item Value Reference Range Interpretation Comments Aspartate Amino Transf (AST/SGOT) (test code = Aspartate Amino Transf (AST/SGOT)) 15 5-34 [facility] HospitalAlanine Aminotransferase (ALT/SGPT) 2019-04-04 11:26:00* Test Item Value Reference Range Interpretation Comments Alanine Aminotransferase (ALT/SGPT) (test code = 1742-6) 19 0-55 [facility] HospitalTotal Zvcogtd8154-09-51 11:26:00* Test Item Value Reference Range Interpretation Comments Total Protein (test code = 2885-2) 8.2 6.5-8.1 H [facility] HospitalAlbumin2019-12-03 11:26:00* Test Item Value Reference Range Interpretation Comments Albumin (test code = 1751-7) 4.2 3.5-5.0 [facility] HospitalGlobulin2019-12-03 11:26:00* Test Item Value Reference Range Interpretation Comments Globulin (test code = 29539-9) 4.0 2.3-3.5 H [facility] HospitalAlbumin/Globulin Ydjdo8761-16-73 11:26:00 * Test Item Value Reference Range Interpretation Comments Albumin/Globulin Ratio (test code = 1759-0) 1.1 0.8-2.0 [facility] HospitalAlkaline Cpqvutmzhsp8081-98-22 11:26:00* Test Item Value Reference Range Interpretation Comments Alkaline Phosphatase (test code = 6768-6) 76 40-150 [facility] HospitalCreatine Epqouo5894-33-29 11:26:00* Test Item Value Reference Range Interpretation Comments Creatine Kinase (test code = 2157-6) 77 30-200 [facility] HospitalCreatine Kinase MV3882-54-80 11:26:00* Test Item Value Reference Range Interpretation Comments Creatine Kinase MB (test code = 55699-4) 0.60 0-5.0 [facility] HospitalTroponin G2713-74-00 11:26:00* Test Item Value Reference Range Interpretation Comments Troponin I (test code = EOG0118) 0.068 0-0.300 [facility] HospitalAmylase Qwfuk7981-76-79 11:26:00* Test Item Value Reference Range Interpretation Comments Amylase Level (test code = 1798-8) 90 25-125 [facility] HospitalLipase2019-12-03 11:26:00* Test Item Value Reference Range Interpretation Comments Lipase (test code = 3040-3) 16 8-78 [facility] HospitalLactic Acid Zhmzb9349-92-23 11:25:00* Test Item Value Reference Range Interpretation Comments Lactic Acid Level (test code = Lactic Acid Level) 1.2 0.5- 2.0 [facility] HospitalProthrombin Usod6677-05-82 10:58:00* Test Item Value Reference Range Interpretation Comments Prothrombin Time (test code = 5902-2) 13.2 11.9-14.5 [facility] HospitalProthromb Time International Ratio 2019-04-04 10:58:00* Test Item Value Reference Range Interpretation Comments Prothromb Time International Ratio (test code = 6301-6) 0.95 Oral Anticoagulant Therapy INR Values:1. Low Intensity Therapy 1.5 - 2.02 . Moderate Intensity Therapy 2.0 - 3.03. High Intensity Therapy(1) 2.5 - 3. 54. High Intensity Therapy(2) 3.0 - 4.05. Panic Value INR > 5.0 [facility] HospitalActivated Partial Thromboplast Time 2019-04-04 10:58:00* Test Item Value Reference Range Interpretation Comments Activated Partial Thromboplast Time (test code = 41365-0) 29.7 23.8-35.5 [facility] HospitalCHEST SINGLE (PORTABLE)2019-04-04 10:27:00 [place] [address] Patient Name: QUYEN KIM MR #: [id number] : 1980 Age/Sex: 38/M Req #: [id number] Adm Physician: Ordered by: BRANDO MONTGOMERY MD Report #: [id number] Location: Room/Bed: Procedure: [id number] DX/CH EST SINGLE (PORTABLE) Exam Date: 04/04/19 [...] COPY TO: BRANDO MONTGOMERY MD White Blood Ffeuj2401-02-13 10:10:00* Test Item Value Reference Range Interpretation Comments White Blood Count (test code = 6690-2) 8.03 4.8-10.8 [facility] HospitalRed Blood Pgunz2851-72-94 10:10:00* Test Item Value Reference Range Interpretation Comments Red Blood Count (test code = 789-8) 3.79 4.3-5.7 L [facility] HospitalHemoglobin2019-12-03 10:10:00* Test Item Value Reference Range Interpretation Comments Hemoglobin (test code = 62121-7) 12.3 14.0-18.0 L [facility] HospitalHematocrit2019-12-03 10:10:00* Test Item Value Reference Range Interpretation Comments Hematocrit (test code = 4544-3) 36.2 38.2-49.6 L [facility] HospitalMean Corpuscular Euctpy1040-72-28 10:10:00* Test Item Value Reference Range Interpretation Comments Mean Corpuscular Volume (test code = 787-2) 95.5 81-99 [facility] HospitalMean Corpuscular Kpwjgeqyfg4047-71-93 10:10:00* Test Item Value Reference Range Interpretation Comments Mean Corpuscular Hemoglobin (test code = 785-6) 32.5 28-32 H [facility] HospitalMean Corpuscular Hemoglobin Concent 2019-04-04 10:10:00* Test Item Value Reference Range Interpretation Comments Mean Corpuscular Hemoglobin Concent (test code = 786-4) 34.0 31-35 [facility] HospitalRed Cell Distribution Gizyc1376-15-55 10:10:00* Test Item Value Reference Range Interpretation Comments Red Cell Distribution Width (test code = 21162-1) 12.6 11.7 -14.4 [facility] HospitalPlatelet Jjele6131-49-13 10:10:00* Test Item Value Reference Range Interpretation Comments Platelet Count (test code = 777-3) 260 140-360 [facility] HospitalNeutrophils (%) (Auto)2019-04-04 10:10:00 * Test Item Value Reference Range Interpretation Comments Neutrophils (%) (Auto) (test code = 21388-1) 57.8 38.7-80.0 [facility] HospitalLymphocytes (%) (Auto)2019-04-04 10:10:00 * Test Item Value Reference Range Interpretation Comments Lymphocytes (%) (Auto) (test code = 736-9) 33.6 18.0-39.1 [facility] HospitalMonocytes (%) (Auto)2019-04-04 10:10:00* Test Item Value Reference Range Interpretation Comments Monocytes (%) (Auto) (test code = 5905-5) 7.1 4.4-11.3 [facility] HospitalEosinophils (%) (Auto)2019-04-04 10:10:00 * Test Item Value Reference Range Interpretation Comments Eosinophils (%) (Auto) (test code = 713-8) 0.6 0.0-6.0 [facility] HospitalBasophils (%) (Auto)2019-04-04 10:10:00* Test Item Value Reference Range Interpretation Comments Basophils (%) (Auto) (test code = 706-2) 0.5 0.0-1.0 [facility] HospitalIM GRANULOCYTES %2019-04-04 10:10:00* Test Item Value Reference Range Interpretation Comments IM GRANULOCYTES % (test code = IM GRANULOCYTES %) 0.4 0.0- 1.0 [facility] HospitalNeutrophils # (Auto)2019-04-04 10:10:00* Test Item Value Reference Range Interpretation Comments Neutrophils # (Auto) (test code = 751-8) 4.6 2.1-6.9 [facility] HospitalLymphocytes # (Auto)2019-04-04 10:10:00* Test Item Value Reference Range Interpretation Comments Lymphocytes # (Auto) (test code = 70080-2) 2.7 1.0-3.2 [facility] HospitalMonocytes # (Auto)2019-04-04 10:10:00* Test Item Value Reference Range Interpretation Comments Monocytes # (Auto) (test code = 742-7) 0.6 0.2-0.8 [facility] HospitalEosinophils # (Auto)2019-04-04 10:10:00* Test Item Value Reference Range Interpretation Comments Eosinophils # (Auto) (test code = 711-2) 0.1 0.0-0.4 [facility] HospitalBasophils # (Auto)2019-04-04 10:10:00* Test Item Value Reference Range Interpretation Comments Basophils # (Auto) (test code = 704-7) 0.0 0.0-0.1 [facility] HospitalAbsolute Immature Granulocyte (auto 2019-04-04 10:10:00* Test Item Value Reference Range Interpretation Comments Absolute Immature Granulocyte (auto (jourdan t code = Absolute Immature Granulocyte (auto) 0.03 0-0.1 [facility] HospitalFluoroscopic procedure less than one hour kwrnnblb1122-16-89 09:40:00* Test Item Value Reference Range Interpretation Comments Lactic Acid Level (test code = Lactic Acid Level) 1.2 0.5- 2.0 [facility] Centererum or plasma magnesium measurement (mass/volume)2019-04-04 09:40:00* Test Item Value Reference Range Interpretation Comments Magnesium Level (test code = 66123-9) 1.8 1.3-2.1 [facility] Centererum or plasma amylase measurement (enzymatic activity/volume)2019-04-04 09:40:00* Test Item Value Reference Range Interpretation Comments Amylase Level (test code = 1798-8) 90 25-125 [facility] HospitalFluoroscopic procedure less than one hour kgfhqlxh5838-22-01 09:40:00* Test Item Value Reference Range Interpretation Comments Lactic Acid Level (test code = Lactic Acid Level) 1.2 0.5- 2.0 [facility]ererum or plasma magnesium measurement (mass/volume)2019-04-04 09:40:00* Test Item Value Reference Range Interpretation Comments Magnesium Level (test code = 52385-2) 1.8 1.3-2.1 [facility] Centererum or plasma amylase measurement (enzymatic activity/volume)2019-04-04 09:40:00* Test Item Value Reference Range Interpretation Comments Amylase Level (test code = 1798-8) 90 25-125 [facility] HospitalProthrombin time (PT) in platelet poor plasma by coagulation sgods5563-74-80 08:53:00* Test Item Value Reference Range Interpretation Comments Prothrombin Time (test code = 5902-2) 13.2 11.9-14.5 [facility] HospitalINR in Platelet poor plasma by Coagulation pqhwp6562-28-45 08:53:00* Test Item Value Reference Range Interpretation Comments Prothromb Time International Ratio (test code = 6301-6) 0.95 Oral Anticoagulant Therapy INR Values:1. Low Intensity Therapy 1.5 - 2.02 . Moderate Intensity Therapy 2.0 - 3.03. High Intensity Therapy(1) 2.5 - 3. 54. High Intensity Therapy(2) 3.0 - 4.05. Panic Value INR > 5.0 [facility] HospitalActivated partial thromboplastin time (aPTT) in platelet poor plasma by coagulation qlurm9689-99-77 08:53:00* Test Item Value Reference Range Interpretation Comments Activated Partial Thromboplast Time (test code = 32283-8) 29.7 23.8-35.5 [facility] HospitalBlood bhzxdot0746-32-70 08:53:00* Test Item Value Reference Range Interpretation Comments Blood Culture (test code = 66233934) NO GROWTH AFTER 5 DAYS, FINAL REPORT [facility] HospitalProthrombin time (PT) in platelet poor plasma by coagulation amrja4613-41-18 08:53:00* Test Item Value Reference Range Interpretation Comments Prothrombin Time (test code = 5902-2) 13.2 11.9-14.5 [facility] HospitalINR in Platelet poor plasma by Coagulation likek6368-53-40 08:53:00* Test Item Value Reference Range Interpretation Comments Prothromb Time International Ratio (test code = 6301-6) 0.95 Oral Anticoagulant Therapy INR Values:1. Low Intensity Therapy 1.5 - 2.02 . Moderate Intensity Therapy 2.0 - 3.03. High Intensity Therapy(1) 2.5 - 3. 54. High Intensity Therapy(2) 3.0 - 4.05. Panic Value INR > 5.0 [facility] HospitalActivated partial thromboplastin time (aPTT) in platelet poor plasma by coagulation dykkd1738-73-65 08:53:00* Test Item Value Reference Range Interpretation Comments Activated Partial Thromboplast Time (test code = 72590-1) 29.7 23.8-35.5 [facility] HospitalBlood kunzmuf0573-12-79 08:53:00* Test Item Value Reference Range Interpretation Comments Blood Culture (test code = 88585262) NO GROWTH AFTER 5 DAYS, FINAL REPORT [facility] HospitalTissue Transglutaminase IgA Fz0104-72-94 06:10:00* Test Item Value Reference Range Interpretation Comments Tissue Transglutaminase IgA Ab (test code = 47647-4) <2 0 -3 Negative 0 - 3 Weak Positive 4 - 10 Positive >10 Tissue Transglutaminase (tTG) has been identified as the endomysial antigen. Studies have demonstr- ated that endomysial IgA antibodies have over 99% specif icity for gluten sensitive enteropathy.[facility] Immunoglobulin G9353-54-50 06:10:00* Test Item Value Reference Range Interpretation Comments Immunoglobulin A (test code = 2458-8) 150 90-386 Performed at: [address] [id number] Wine Manager: Lai Olson MD, Phone: [phone] at: [address] [id number] Director: Alejo Malin MD, Ph one: [phone] Community HospitalEndomysial IgA Antibody 2019-03-21 06:10:00* Test Item Value Reference Range Interpretation Comments Endomysial IgA Antibody (test code = 78809-9) Negative Negative [facility] HospitalTissue Transglutaminase IgA Qn2697-04-81 06:10:00* Test Item Value Reference Range Interpretation Comments Tissue Transglutaminase IgA Ab (test code = 29979-0) <2 0 -3 Negative 0 - 3 Weak Positive 4 - 10 Positive >10 Tissue Transglutaminase (tTG) has been identified as the endomysial antigen. Studies have demonstr- ated that endomysial IgA antibodies have over 99% specif icity for gluten sensitive enteropathy.[facility] Immunoglobulin Z4382-09-30 06:10:00* Test Item Value Reference Range Interpretation Comments Immunoglobulin A (test code = 2458-8) 150 90-386 Performed at: [address] [id number] Wine Manager: Lai Olson MD, Phone: [phone] at: [address] [id number] Director: Alejo Malin MD, Ph one: [phone] Community HospitalEndomysial IgA Antibody 2019-03-21 06:10:00* Test Item Value Reference Range Interpretation Comments Endomysial IgA Antibody (test code = 97875-3) Negative Negative [facility] HospitalBlood Ovrswjz6038-42-44 14:11:00* Test Item Value Reference Range Interpretation Comments Blood Culture (test code = 92086742) NO GROWTH AFTER 5 DAYS, FINAL REPORT [facility] HospitalBlood Ezojxwr3272-34-48 14:11:00* Test Item Value Reference Range Interpretation Comments Blood Culture (test code = 07639190) NO GROWTH AFTER 5 DAYS, FINAL REPORT [facility] Folate Jocqyjdbho7483-52-87 20:40:00 * Test Item Value Reference Range Interpretation Comments RBC Folate Hemolysate (test code = 2282-2) 268.2 Not Estab. [facility] HospitalHematocrit2019-11-15 20:40:00* Test Item Value Reference Range Interpretation Comments Hematocrit (test code = 4544-3) 29.1 37.5-51.[address] [facility] Folate Itzzhnqarj2045-19-01 20:40:00 * Test Item Value Reference Range Interpretation Comments RBC Folate Hemolysate (test code = 2283-0) 922 >498 Performed at: - [facility] [address] [id number] Director: Alejo Malin MD, Phone: [phone] Community HospitalC-Reactive Zgyytug5166-76-80 20:40:00* Test Item Value Reference Range Interpretation Comments C-Reactive Protein (test code = 1988-5) 3 0-10 Performed at: - [facility] [address] [id number] Director: Alejo Malin MD, Phone: [phone] [facility] Folate Qerpotjezo3126-51-36 20:40:00* Test Item Value Reference Range Interpretation Comments RBC Folate Hemolysate (test code = 2282-2) 268.2 Not Estab. [facility] HospitalHematocrit2019-11-15 20:40:00* Test Item Value Reference Range Interpretation Comments Hematocrit (test code = 4544-3) 29.1 37.5-51.[address] [facility] Folate Nussbchmrb8388-08-15 20:40:00 * Test Item Value Reference Range Interpretation Comments RBC Folate Hemolysate (test code = 2283-0) 922 >498 Performed at: HD - [facility] [address] [id number] Director: Alejo Malin MD, Phone: [phone] Community HospitalC-Reactive Vdefiug9134-21-30 20:40:00* Test Item Value Reference Range Interpretation Comments C-Reactive Protein (test code = 1988-5) 3 0-10 Performed at: - [facility] [address] [id number] Director: Alejo Malin MD, Phone: [phone] Community HospitalBlood Sqfnjea6635-16-08 14:11:00* Test Item Value Reference Range Interpretation Comments Blood Culture (test code = 80928752) NO GROWTH AFTER 72 HOURS [facility] HospitalDifferential Total Cells Counted 2019-03-16 10:54:00* Test Item Value Reference Range Interpretation Comments Differential Total Cells Counted (test code = Differen tial Total Cells Counted) 100 [facility] HospitalNeutrophils % (Manual)2019-03-16 10:54:00 * Test Item Value Reference Range Interpretation Comments Neutrophils % (Manual) (test code = 59018-3) 42 40-74 [facility] HospitalLymphocytes % (Manual)2019-03-16 10:54:00 * Test Item Value Reference Range Interpretation Comments Lymphocytes % (Manual) (test code = 737-7) 49 19-48 H [facility] HospitalMonocytes % (Manual)2019-03-16 10:54:00* Test Item Value Reference Range Interpretation Comments Monocytes % (Manual) (test code = 744-3) 5 3.4-9.0 [facility] HospitalReactive Sdpvqzahtgb1105-85-83 10:54:00* Test Item Value Reference Range Interpretation Comments Reactive Lymphocytes (test code = 54261-2) 4 [facility] HospitalPlatelet Vyudzfvp4252-02-74 10:54:00* Test Item Value Reference Range Interpretation Comments Platelet Estimate (test code = 92120-0) ADEQUATE [facility] HospitalPlatelet Morphology Bkpljsv2825-52-36 10:54:00* Test Item Value Reference Range Interpretation Comments Platelet Morphology Comment (test code = 12001-0) NORMAL [facility] HospitalRed Cell Morphology Jfpqkir0569-76-43 10:54:00* Test Item Value Reference Range Interpretation Comments Red Cell Morphology Comment (test code = 6742-1) NORMAL [facility] HospitalDifferential Total Cells Counted 2019-03-16 10:54:00* Test Item Value Reference Range Interpretation Comments Differential Total Cells Counted (test code = Differen tial Total Cells Counted) 100 [facility] HospitalNeutrophils % (Manual)2019-03-16 10:54:00 * Test Item Value Reference Range Interpretation Comments Neutrophils % (Manual) (test code = 35064-3) 42 40-74 [facility] HospitalLymphocytes % (Manual)2019-03-16 10:54:00 * Test Item Value Reference Range Interpretation Comments Lymphocytes % (Manual) (test code = 737-7) 49 19-48 H [facility] HospitalMonocytes % (Manual)2019-03-16 10:54:00* Test Item Value Reference Range Interpretation Comments Monocytes % (Manual) (test code = 744-3) 5 3.4-9.0 [facility] HospitalReactive Wfldjiacfsw7387-14-25 10:54:00* Test Item Value Reference Range Interpretation Comments Reactive Lymphocytes (test code = 70123-5) 4 [facility] HospitalPlatelet Sgwhksde5287-61-20 10:54:00* Test Item Value Reference Range Interpretation Comments Platelet Estimate (test code = 06013-2) ADEQUATE [facility] HospitalPlatelet Morphology Nlnnkah3876-14-19 10:54:00* Test Item Value Reference Range Interpretation Comments Platelet Morphology Comment (test code = 85906-9) NORMAL [facility] HospitalRed Cell Morphology Bjvrfbr8785-56-02 10:54:00* Test Item Value Reference Range Interpretation Comments Red Cell Morphology Comment (test code = 6742-1) NORMAL [facility] HospitalDifferential Total Cells Counted 2019-03-16 10:54:00* Test Item Value Reference Range Interpretation Comments Differential Total Cells Counted (test code = Differen tial Total Cells Counted) 100 [facility] HospitalNeutrophils % (Manual)2019-03-16 10:54:00 * Test Item Value Reference Range Interpretation Comments Neutrophils % (Manual) (test code = 90275-1) 42 40-74 [facility] HospitalLymphocytes % (Manual)2019-03-16 10:54:00 * Test Item Value Reference Range Interpretation Comments Lymphocytes % (Manual) (test code = 737-7) 49 19-48 H [facility] HospitalMonocytes % (Manual)2019-03-16 10:54:00* Test Item Value Reference Range Interpretation Comments Monocytes % (Manual) (test code = 744-3) 5 3.4-9.0 [facility] HospitalReactive Xijvtcxnfoy0081-77-88 10:54:00* Test Item Value Reference Range Interpretation Comments Reactive Lymphocytes (test code = 34948-9) 4 [facility] HospitalPlatelet Mveotdmu0301-23-70 10:54:00* Test Item Value Reference Range Interpretation Comments Platelet Estimate (test code = 81772-3) ADEQUATE [facility] HospitalPlatelet Morphology Vzcwttm1050-46-51 10:54:00* Test Item Value Reference Range Interpretation Comments Platelet Morphology Comment (test code = 59793-0) NORMAL [facility] HospitalRed Cell Morphology Jopgkga4596-14-78 10:54:00* Test Item Value Reference Range Interpretation Comments Red Cell Morphology Comment (test code = 6742-1) NORMAL [facility] Centerodium Ogjqy5712-06-81 08:19:00* Test Item Value Reference Range Interpretation Comments Sodium Level (test code = 2951-2) 138 136-145 [facility] HospitalPotassium Ldtvj1205-32-24 08:19:00* Test Item Value Reference Range Interpretation Comments Potassium Level (test code = 2823-3) 3.3 3.5-5.1 L [facility] HospitalChloride Wywke0956-35-39 08:19:00* Test Item Value Reference Range Interpretation Comments Chloride Level (test code = 2075-0) 107 98-107 [facility] HospitalCarbon Dioxide Vpkmu0332-11-06 08:19:00* Test Item Value Reference Range Interpretation Comments Carbon Dioxide Level (test code = 2028-9) 22 22-29 [facility] HospitalAnion Tcb8681-85-93 08:19:00* Test Item Value Reference Range Interpretation Comments Anion Gap (test code = 20208-0) 12.3 8-16 [facility] HospitalBlood Urea Vjthiank4972-64-35 08:19:00* Test Item Value Reference Range Interpretation Comments Blood Urea Nitrogen (test code = 3094-0) < 5 7-26 L [facility] HospitalCreatinine2019-[facility]-14 08:19:00* Test Item Value Reference Range Interpretation Comments Creatinine (test code = 2160-0) 1.20 0.72-1.25 [facility] HospitalBUN/Creatinine Yhkpu6483-91-02 08:19:00* Test Item Value Reference Range Interpretation Comments BUN/Creatinine Ratio (test code = 3097-3) 4 6-25 L [facility] HospitalEstimat Glomerular Filtration Rate 2019-03-16 08:19:00* Test Item Value Reference Range Interpretation Comments Estimat Glomerular Filtration Rate (test code = 021144623) > 60 >60 Ranges were taken from the National Kidney Disease Education Program and the [facility] literature.Reference ranges:60 or greater: Oxofdg70-16 ( for 3 consecutive months): Chronic kidney disease 15 or less: Kidney failureColumbus Community HospitalGlucose Loxin4281-06-32 08:19:00* Test Item Value Reference Range Interpretation Comments Glucose Level (test code = OHK3957) 92 74-118 [facility] HospitalCalcium Jiqfw9951-52-82 08:19:00* Test Item Value Reference Range Interpretation Comments Calcium Level (test code = 34667-6) 9.0 8.4-10.2 [facility] Qhayg3609-41-53 08:19:00* Test Item Value Reference Range Interpretation Comments Sodium Level (test code = 2951-2) 138 136-145 [facility] HospitalPotassium Ovwpe1741-60-91 08:19:00* Test Item Value Reference Range Interpretation Comments Potassium Level (test code = 2823-3) 3.3 3.5-5.1 L [facility] HospitalChloride Pdifh1068-69-36 08:19:00* Test Item Value Reference Range Interpretation Comments Chloride Level (test code = 2075-0) 107 98-107 [facility] HospitalCarbon Dioxide Mvajc1431-37-71 08:19:00* Test Item Value Reference Range Interpretation Comments Carbon Dioxide Level (test code = 2028-9) 22 22-29 [facility] HospitalAnion Hac6062-29-88 08:19:00* Test Item Value Reference Range Interpretation Comments Anion Gap (test code = 15608-3) 12.3 8-16 [facility] HospitalBlood Urea Erdvwwal0035-19-65 08:19:00* Test Item Value Reference Range Interpretation Comments Blood Urea Nitrogen (test code = 3094-0) < 5 7-26 L [facility] HospitalCreatinine2019-11-14 08:19:00* Test Item Value Reference Range Interpretation Comments Creatinine (test code = 2160-0) 1.20 0.72-1.25 [facility] HospitalBUN/Creatinine Jlbra9547-69-49 08:19:00* Test Item Value Reference Range Interpretation Comments BUN/Creatinine Ratio (test code = 3097-3) 4 6-25 L [facility] HospitalEstimat Glomerular Filtration Rate 2019-03-16 08:19:00* Test Item Value Reference Range Interpretation Comments Estimat Glomerular Filtration Rate (test code = 965894280) > 60 >60 Ranges were taken from the National Kidney Disease Education Program and the [facility] literature.Reference ranges:60 or greater: Myvazx42-08 ( for 3 consecutive months): Chronic kidney disease 15 or less: Kidney failureColumbus Community HospitalGlucose Pjdhw1164-46-91 08:19:00* Test Item Value Reference Range Interpretation Comments Glucose Level (test code = RZF8853) 92 74-118 [facility] HospitalCalcium Tmwcq0793-07-86 08:19:00* Test Item Value Reference Range Interpretation Comments Calcium Level (test code = 15406-8) 9.0 8.4-10.2 [facility] HospitalWhite Blood Tdinz2406-02-86 05:34:00* Test Item Value Reference Range Interpretation Comments White Blood Count (test code = 6690-2) 3.70 4.8-10.8 L [facility] HospitalRed Blood Uamsm3430-33-72 05:34:00* Test Item Value Reference Range Interpretation Comments Red Blood Count (test code = 789-8) 3.06 4.3-5.7 L [facility] HospitalHemoglobin2019-11-14 05:34:00* Test Item Value Reference Range Interpretation Comments Hemoglobin (test code = 09260-8) 9.9 14.0-18.0 L [facility] HospitalHematocrit2019-11-14 05:34:00* Test Item Value Reference Range Interpretation Comments Hematocrit (test code = 4544-3) 29.2 38.2-49.6 L [facility] HospitalMean Corpuscular Bvmwop1541-72-83 05:34:00* Test Item Value Reference Range Interpretation Comments Mean Corpuscular Volume (test code = 787-2) 95.4 81-99 [facility] HospitalMean Corpuscular Pvsqovzpiu3494-52-71 05:34:00* Test Item Value Reference Range Interpretation Comments Mean Corpuscular Hemoglobin (test code = 785-6) 32.4 28-32 H [facility] HospitalMean Corpuscular Hemoglobin Concent 2019-03-16 05:34:00* Test Item Value Reference Range Interpretation Comments Mean Corpuscular Hemoglobin Concent (test code = 786-4) 33.9 31-35 [facility] HospitalRed Cell Distribution Ubemx6424-63-44 05:34:00* Test Item Value Reference Range Interpretation Comments Red Cell Distribution Width (test code = 79159-6) 11.7 11.7 -14.4 [facility] HospitalPlatelet Arpmu4109-77-88 05:34:00* Test Item Value Reference Range Interpretation Comments Platelet Count (test code = 777-3) 174 140-360 [facility] HospitalNeutrophils (%) (Auto)2019-03-16 05:34:00 * Test Item Value Reference Range Interpretation Comments Neutrophils (%) (Auto) (test code = 12420-7) 41.6 38.7-80.0 [facility] HospitalLymphocytes (%) (Auto)2019-03-16 05:34:00 * Test Item Value Reference Range Interpretation Comments Lymphocytes (%) (Auto) (test code = 736-9) 47.6 18.0-39.1 H [facility] HospitalMonocytes (%) (Auto)2019-03-16 05:34:00* Test Item Value Reference Range Interpretation Comments Monocytes (%) (Auto) (test code = 5905-5) 8.4 4.4-11.3 [facility] HospitalEosinophils (%) (Auto)2019-03-16 05:34:00 * Test Item Value Reference Range Interpretation Comments Eosinophils (%) (Auto) (test code = 713-8) 1.6 0.0-6.0 [facility] HospitalBasophils (%) (Auto)2019-03-16 05:34:00* Test Item Value Reference Range Interpretation Comments Basophils (%) (Auto) (test code = 706-2) 0.3 0.0-1.0 [facility] HospitalIM GRANULOCYTES %2019-03-16 05:34:00* Test Item Value Reference Range Interpretation Comments IM GRANULOCYTES % (test code = IM GRANULOCYTES %) 0.5 0.0- 1.0 [facility] HospitalNeutrophils # (Auto)2019-03-16 05:34:00* Test Item Value Reference Range Interpretation Comments Neutrophils # (Auto) (test code = 751-8) 1.5 2.1-6.9 L [facility] HospitalLymphocytes # (Auto)2019-03-16 05:34:00* Test Item Value Reference Range Interpretation Comments Lymphocytes # (Auto) (test code = 55129-4) 1.8 1.0-3.2 [facility] HospitalMonocytes # (Auto)2019-03-16 05:34:00* Test Item Value Reference Range Interpretation Comments Monocytes # (Auto) (test code = 742-7) 0.3 0.2-0.8 [facility] HospitalEosinophils # (Auto)2019-03-16 05:34:00* Test Item Value Reference Range Interpretation Comments Eosinophils # (Auto) (test code = 711-2) 0.1 0.0-0.4 [facility] HospitalBasophils # (Auto)2019-03-16 05:34:00* Test Item Value Reference Range Interpretation Comments Basophils # (Auto) (test code = 704-7) 0.0 0.0-0.1 [facility] HospitalAbsolute Immature Granulocyte (auto 2019-03-16 05:34:00* Test Item Value Reference Range Interpretation Comments Absolute Immature Granulocyte (auto (jourdan t code = Absolute Immature Granulocyte (auto) 0.02 0-0.1 [facility] HospitalWhite Blood Pdvwl5594-25-35 05:34:00* Test Item Value Reference Range Interpretation Comments White Blood Count (test code = 6690-2) 3.70 4.8-10.8 L [facility] HospitalRed Blood Zrhnt8736-12-51 05:34:00* Test Item Value Reference Range Interpretation Comments Red Blood Count (test code = 789-8) 3.06 4.3-5.7 L [facility] HospitalHemoglobin2019-11-14 05:34:00* Test Item Value Reference Range Interpretation Comments Hemoglobin (test code = 25494-3) 9.9 14.0-18.0 L [facility] HospitalHematocrit2019-11-14 05:34:00* Test Item Value Reference Range Interpretation Comments Hematocrit (test code = 4544-3) 29.2 38.2-49.6 L [facility] HospitalMean Corpuscular Wjiyta9118-46-24 05:34:00* Test Item Value Reference Range Interpretation Comments Mean Corpuscular Volume (test code = 787-2) 95.4 81-99 [facility] HospitalMean Corpuscular Ioshbstevz9957-94-55 05:34:00* Test Item Value Reference Range Interpretation Comments Mean Corpuscular Hemoglobin (test code = 785-6) 32.4 28-32 H [facility] HospitalMean Corpuscular Hemoglobin Concent 2019-03-16 05:34:00* Test Item Value Reference Range Interpretation Comments Mean Corpuscular Hemoglobin Concent (test code = 786-4) 33.9 31-35 [facility] HospitalRed Cell Distribution Kbznf2776-82-74 05:34:00* Test Item Value Reference Range Interpretation Comments Red Cell Distribution Width (test code = 80426-3) 11.7 11.7 -14.4 [facility] HospitalPlatelet Qxhzd1394-18-23 05:34:00* Test Item Value Reference Range Interpretation Comments Platelet Count (test code = 777-3) 174 140-360 [facility] HospitalNeutrophils (%) (Auto)2019-03-16 05:34:00 * Test Item Value Reference Range Interpretation Comments Neutrophils (%) (Auto) (test code = 36266-6) 41.6 38.7-80.0 [facility] HospitalLymphocytes (%) (Auto)2019-03-16 05:34:00 * Test Item Value Reference Range Interpretation Comments Lymphocytes (%) (Auto) (test code = 736-9) 47.6 18.0-39.1 H [facility] HospitalMonocytes (%) (Auto)2019-03-16 05:34:00* Test Item Value Reference Range Interpretation Comments Monocytes (%) (Auto) (test code = 5905-5) 8.4 4.4-11.3 [facility] HospitalEosinophils (%) (Auto)2019-03-16 05:34:00 * Test Item Value Reference Range Interpretation Comments Eosinophils (%) (Auto) (test code = 713-8) 1.6 0.0-6.0 [facility] HospitalBasophils (%) (Auto)2019-03-16 05:34:00* Test Item Value Reference Range Interpretation Comments Basophils (%) (Auto) (test code = 706-2) 0.3 0.0-1.0 [facility] HospitalIM GRANULOCYTES %2019-03-16 05:34:00* Test Item Value Reference Range Interpretation Comments IM GRANULOCYTES % (test code = IM GRANULOCYTES %) 0.5 0.0- 1.0 [facility] HospitalNeutrophils # (Auto)2019-03-16 05:34:00* Test Item Value Reference Range Interpretation Comments Neutrophils # (Auto) (test code = 751-8) 1.5 2.1-6.9 L [facility] HospitalLymphocytes # (Auto)2019-03-16 05:34:00* Test Item Value Reference Range Interpretation Comments Lymphocytes # (Auto) (test code = 58447-4) 1.8 1.0-3.2 [facility] HospitalMonocytes # (Auto)2019-03-16 05:34:00* Test Item Value Reference Range Interpretation Comments Monocytes # (Auto) (test code = 742-7) 0.3 0.2-0.8 [facility] HospitalEosinophils # (Auto)2019-03-16 05:34:00* Test Item Value Reference Range Interpretation Comments Eosinophils # (Auto) (test code = 711-2) 0.1 0.0-0.4 [facility] HospitalBasophils # (Auto)2019-03-16 05:34:00* Test Item Value Reference Range Interpretation Comments Basophils # (Auto) (test code = 704-7) 0.0 0.0-0.1 [facility] HospitalAbsolute Immature Granulocyte (auto 2019-03-16 05:34:00* Test Item Value Reference Range Interpretation Comments Absolute Immature Granulocyte (auto (jourdan t code = Absolute Immature Granulocyte (auto) 0.02 0-0.1 [facility] HospitalFluoroscopic procedure less than one hour fhxuqrxk2108-24-06 04:00:00* Test Item Value Reference Range Interpretation Comments Differential Total Cells Counted (test code = Differen tial Total Cells Counted) 100 [facility] HospitalManual blood neutrophils/100 leukocytes 2019-03-16 04:00:00* Test Item Value Reference Range Interpretation Comments Neutrophils % (Manual) (test code = 97333-1) 42 40-74 [facility] blood lymphocytes/100 leukocytes 2019-03-16 04:00:00* Test Item Value Reference Range Interpretation Comments Lymphocytes % (Manual) (test code = 737-7) 49 19-48 [facility] blood monocytes/100 leukocytes 2019-03-16 04:00:00* Test Item Value Reference Range Interpretation Comments Monocytes % (Manual) (test code = 744-3) 5 3.4-9.0 [facility] lymphocytes variant count (number/volume)2019-03-16 04:00:00* Test Item Value Reference Range Interpretation Comments Reactive Lymphocytes (test code = 50455-0) 4 [facility] platelets count by estimate (number/volume)2019-03-16 04:00:00* Test Item Value Reference Range Interpretation Comments Platelet Estimate (test code = 26533-1) ADEQUATE [facility] HospitalPlatelet kkzdpgabwg2063-17-18 04:00:00* Test Item Value Reference Range Interpretation Comments Platelet Morphology Comment (test code = 37432-9) NORMAL [facility] HospitalRB soqfocszup3320-07-85 04:00:00* Test Item Value Reference Range Interpretation Comments Red Cell Morphology Comment (test code = 6742-1) NORMAL [facility] HospitalFluoroscopic procedure less than one hour axmtfyml9448-37-77 04:00:00* Test Item Value Reference Range Interpretation Comments Differential Total Cells Counted (test code = Differclarice tial Total Cells Counted) 100 [facility] blood neutrophils/100 leukocytes 2019-03-16 04:00:00* Test Item Value Reference Range Interpretation Comments Neutrophils % (Manual) (test code = 44281-0) 42 40-74 [facility] blood lymphocytes/100 leukocytes 2019-03-16 04:00:00* Test Item Value Reference Range Interpretation Comments Lymphocytes % (Manual) (test code = 737-7) 49 19-48 [facility] blood monocytes/100 leukocytes 2019-03-16 04:00:00* Test Item Value Reference Range Interpretation Comments Monocytes % (Manual) (test code = 744-3) 5 3.4-9.0 [facility] HospitalBlood lymphocytes variant count (number/volume)2019-03-16 04:00:00* Test Item Value Reference Range Interpretation Comments Reactive Lymphocytes (test code = 03180-7) 4 [facility] HospitalBlood platelets count by estimate (number/volume)2019-03-16 04:00:00* Test Item Value Reference Range Interpretation Comments Platelet Estimate (test code = 62147-1) ADEQUATE [facility] HospitalPlatelet ylefqugzoq2384-45-54 04:00:00* Test Item Value Reference Range Interpretation Comments Platelet Morphology Comment (test code = 18486-9) NORMAL [facility] HospitalRB cilluyigzz5986-51-31 04:00:00* Test Item Value Reference Range Interpretation Comments Red Cell Morphology Comment (test code = 6742-1) NORMAL [facility] HospitalVitamin B12 Dwcve3939-38-74 21:54:00* Test Item Value Reference Range Interpretation Comments Vitamin B12 Level (test code = 92751-0) 605 213-816 [facility] HospitalVitamin B12 Yenss7067-52-20 21:54:00* Test Item Value Reference Range Interpretation Comments Vitamin B12 Level (test code = 17720-2) 605 213-816 [facility] HospitalVitamin B12 Mgqvd5391-90-26 21:54:00* Test Item Value Reference Range Interpretation Comments Vitamin B12 Level (test code = 68970-2) 605 213-816 [facility] HospitalFerritin2019-11-13 21:44:00* Test Item Value Reference Range Interpretation Comments Ferritin (test code = 2276-4) 387.29 21.81-274.66 H [facility] HospitalThyroid Stimulating Hormone (TSH) 2019-03-15 21:44:00* Test Item Value Reference Range Interpretation Comments Thyroid Stimulating Hormone (TSH) (test code = 28905-2) 2.573 0.350-4.940 [facility] HospitalFerritin2019-11-13 21:44:00* Test Item Value Reference Range Interpretation Comments Ferritin (test code = 2276-4) 387.29 21.81-274.66 H [facility] HospitalThyroid Stimulating Hormone (TSH) 2019-03-15 21:44:00* Test Item Value Reference Range Interpretation Comments Thyroid Stimulating Hormone (TSH) (test code = 83196-4) 2.573 0.350-4.940 [facility] HospitalFerritin2019-11-13 21:44:00* Test Item Value Reference Range Interpretation Comments Ferritin (test code = 2276-4) 387.29 21.81-274.66 H [facility] HospitalThyroid Stimulating Hormone (TSH) 2019-03-15 21:44:00* Test Item Value Reference Range Interpretation Comments Thyroid Stimulating Hormone (TSH) (test code = 45305-2) 2.573 0.350-4.940 [facility] HospitalErythrocyte Sedimentation Rumv7165-25-39 21:33:00* Test Item Value Reference Range Interpretation Comments Erythrocyte Sedimentation Rate (test code = 4537-7) 62 0- 13 H [facility] HospitalErythrocyte Sedimentation Oile2658-24-30 21:33:00* Test Item Value Reference Range Interpretation Comments Erythrocyte Sedimentation Rate (test code = 4537-7) 62 0- 13 H [facility] HospitalErythrocyte Sedimentation Ltrf9149-46-74 21:33:00* Test Item Value Reference Range Interpretation Comments Erythrocyte Sedimentation Rate (test code = 4537-7) 62 0- 13 H [facility] HospitalIron Shjas6375-42-11 21:22:00* Test Item Value Reference Range Interpretation Comments Iron Level (test code = 2498-4) 69 65-175 [facility] HospitalTotal Iron Binding Lfmxmucc3844-10-14 21:22:00* Test Item Value Reference Range Interpretation Comments Total Iron Binding Capacity (test code = 2500-7) 256 261-4 78 L [facility] HospitalPercent Iron Ibnfffudky2252-10-84 21:22:00* Test Item Value Reference Range Interpretation Comments Percent Iron Saturation (test code = 2502-3) 27 15-50 [facility] HospitalTransferrin2019-11-13 21:22:00* Test Item Value Reference Range Interpretation Comments Transferrin (test code = 3034-6) 183 174-364 [facility] HospitalAmylase Snaqg4064-83-56 21:22:00* Test Item Value Reference Range Interpretation Comments Amylase Level (test code = 1798-8) 68 25-125 [facility] HospitalLipase2019-11-13 21:22:00* Test Item Value Reference Range Interpretation Comments Lipase (test code = 3040-3) 14 78 [facility] HospitalIron Mavcj4341-01-34 21:22:00* Test Item Value Reference Range Interpretation Comments Iron Level (test code = 2498-4) 69 65-175 [facility] HospitalTotal Iron Binding Ygqaohzp4226-53-99 21:22:00* Test Item Value Reference Range Interpretation Comments Total Iron Binding Capacity (test code = 2500-7) 256 261-4 78 L [facility]Percent Iron Mkiqdjliac2321-57-91 21:22:00* Test Item Value Reference Range Interpretation Comments Percent Iron Saturation (test code = 2502-3) 27 15-50 [facility] HospitalTransferrin2019-11-13 21:22:00* Test Item Value Reference Range Interpretation Comments Transferrin (test code = 3034-6) 183 174-364 [facility] Os[place]a4290-66-31 21:22:00* Test Item Value Reference Range Interpretation Comments Amylase Level (test code = 1798-8) 68 25-125 [facility] HospitalLipase2019-11-13 21:22:00* Test Item Value Reference Range Interpretation Comments Lipase (test code = 3040-3) 14 78 [facility] HospitalIron Vxfth2097-91-27 21:22:00* Test Item Value Reference Range Interpretation Comments Iron Level (test code = 2498-4) 69 65-175 [facility] HospitalTotal Iron Binding Qjdgeppr4276-97-71 21:22:00* Test Item Value Reference Range Interpretation Comments Total Iron Binding Capacity (test code = 2500-7) 256 261-4 78 L [facility]Percent Iron Ulnyhtnpnp0559-77-01 21:22:00* Test Item Value Reference Range Interpretation Comments Percent Iron Saturation (test code = 2502-3) 27 15-50 [facility] HospitalTransferrin2019-11-13 21:22:00* Test Item Value Reference Range Interpretation Comments Transferrin (test code = 3034-6) 183 174-364 [facility] HospitalPercent Reticulocyte Ywaem1138-43-68 21:04:00* Test Item Value Reference Range Interpretation Comments Percent Reticulocyte Count (test code = 59789-7) 1.3 0.8-2 .2 [facility]Percent Reticulocyte Duwui0331-93-94 21:04:00* Test Item Value Reference Range Interpretation Comments Percent Reticulocyte Count (test code = 47338-7) 1.3 0.8-2 .2 [facility]Percent Reticulocyte Kgxrq3297-45-30 21:04:00* Test Item Value Reference Range Interpretation Comments Percent Reticulocyte Count (test code = 64356-1) 1.3 0.8-2 .2 [facility] HospitalErythrocyte sedimentation rate by Westergren lpvzaq8073-80-22 19:20:00* Test Item Value Reference Range Interpretation Comments Erythrocyte Sedimentation Rate (test code = 4537-7) 62 0- 13 [facility] HospitalAutomated reticulocyte count as percentage of total aiieswzfjvel2512-62-18 19:20:00* Test Item Value Reference Range Interpretation Comments Percent Reticulocyte Count (test code = 03873-7) 1.3 0.8-2 .2 [facility]ere[facility] plasma iron measurement (mass/volume)2019-03-15 19:20:00* Test Item Value Reference Range Interpretation Comments Iron Level (test code = 2498-4) 69 65-175 [facility] Centererum or plasma iron binding capacity measurement (mass/volume)2019-03-15 19:20:00* Test Item Value Reference Range Interpretation Comments Total Iron Binding Capacity (test code = 2500-7) 256 261-4 78 [facility] Centererum or plasma iron saturation measurement (mass fraction)2019-03-15 19:20:00* Test Item Value Reference Range Interpretation Comments Percent Iron Saturation (test code = 2502-3) 27 15-50 [facility] Centererum or plasma transferrin measurement (mass/volume)2019-03-15 19:20:00* Test Item Value Reference Range Interpretation Comments Transferrin (test code = 3034-6) 183 174-364 [facility] Centererum or plasma ferritin measurement (mass/volume)2019-03-15 19:20:00* Test Item Value Reference Range Interpretation Comments Ferritin (test code = 2276-4) 387.29 21.81-274.66 [facility] HospitalBlood cobalamin (vitamin B12) measurement (mass/volume)2019-03-15 19:20:00* Test Item Value Reference Range Interpretation Comments Vitamin B12 Level (test code = 31869-6) 605 213-816 [facility] Centererum or plasma thyrotropin measurement by detection limit <= 0.005 miu/l (units/volume)2019-03-15 19:20:00* Test Item Value Reference Range Interpretation Comments Thyroid Stimulating Hormone (TSH) (test code = 54241-8) 2.573 0.350-4.940 [facility] HospitalBlood folate measurement (mass/volume) 2019-03-15 19:20:00* Test Item Value Reference Range Interpretation Comments RBC Folate Hemolysate (test code = 2282-2) 268.2 Not Estab. [facility] HospitalAutomated blood hematocrit (volume fraction)2019-03-15 19:20:00* Test Item Value Reference Range Interpretation Comments Hematocrit (test code = 4544-3) 29.1 37.5-51.0 [facility] HospitalErythrocyte folate measurement (mass/volume)2019-03-15 19:20:00* Test Item Value Reference Range Interpretation Comments Red Blood Cell Folate (test code = 2283-0) 922 >498 Performed at: - [facility] [id number] Director: Alejo Malin MD, Phone: [phone] [facility] Centererum tissue transglutaminase IgA antibody fjsyoqfzd7927-79-23 19:20:00* Test Item Value Reference Range Interpretation Comments Tissue Transglutaminase IgA Ab (test code = 36979-3) <2 0 -3 Negative 0 - 3 Weak Positive 4 - 10 Positive >10 Tissue Transglutaminase (tTG) has been identified as the endomysial antigen. Studies have demonstr- ated that endomysial IgA antibodies have over 99% specif icity for gluten sensitive enteropathy.[facility] Serum or plasma IgA measurement (mass/volume)2019-03-15 19:20:00* Test Item Value Reference Range Interpretation Comments Immunoglobulin A (test code = 2458-8) 150 90-386 Performed at: [employer] [address] [id number] Wine Manager: Lai Olson MD, Phone: [phone] at: [facility] [id number] Director: Alejo Malin MD, Ph one: [phone] [facility] Centererum endomysium IgA antibody tirvdogru6503-40-25 19:20:00* Test Item Value Reference Range Interpretation Comments Endomysial IgA Antibody (test code = 14011-3) Negative Negative [facility] Centererum or plasma C reactive protein measurement (mass/volume)2019-03-15 19:20:00* Test Item Value Reference Range Interpretation Comments C-Reactive Protein (test code = 1988-5) 3 0-10 Performed at: [facility] [id number] Director: Alejo Malin MD, Phone: [phone] Community HospitalErythrocyte sedimentation rate by Westergren qlrhye0436-17-37 19:20:00* Test Item Value Reference Range Interpretation Comments Erythrocyte Sedimentation Rate (test code = 4537-7) 62 0- 13 [facility] HospitalAutomated reticulocyte count as percentage of total tubinypayeiz1962-72-42 19:20:00* Test Item Value Reference Range Interpretation Comments Percent Reticulocyte Count (test code = 83480-6) 1.3 0.8-2 .2 [facility] iron measurement (mass/volume)2019-03-15 19:20:00* Test Item Value Reference Range Interpretation Comments Iron Level (test code = 2498-4) 69 65-175 [facility] iron binding capacity measurement (mass/volume)2019-03-15 19:20:00* Test Item Value Reference Range Interpretation Comments Total Iron Binding Capacity (test code = 2500-7) 256 261-4 78 [facility] plasma iron saturation measurement (mass fraction)2019-03-15 19:20:00* Test Item Value Reference Range Interpretation Comments Percent Iron Saturation (test code = 2502-3) 27 15-50 [facility] plasma transferrin measurement (mass/volume)2019-03-15 19:20:00* Test Item Value Reference Range Interpretation Comments Transferrin (test code = 3034-6) 183 174-364 [facility]ere[facility] or plasma ferritin measurement (mass/volume)2019-03-15 19:20:00* Test Item Value Reference Range Interpretation Comments Ferritin (test code = 2276-4) 387.29 21.81-274.66 [facility] HospitalBlood cobalamin (vitamin B12) measurement (mass/volume)2019-03-15 19:20:00* Test Item Value Reference Range Interpretation Comments Vitamin B12 Level (test code = 22183-1) 605 213-816 [facility] plasma thyrotropin measurement by detection limit <= 0.005 miu/l (units/volume)2019-03-15 19:20:00* Test Item Value Reference Range Interpretation Comments Thyroid Stimulating Hormone (TSH) (test code = 87648-5) 2.573 0.350-4.940 [facility]Blood folate measurement (mass/volume) 2019-03-15 19:20:00* Test Item Value Reference Range Interpretation Comments RBC Folate Hemolysate (test code = 2282-2) 268.2 Not Estab. [facility] HospitalAutomated blood hematocrit (volume fraction)2019-03-15 19:20:00* Test Item Value Reference Range Interpretation Comments Hematocrit (test code = 4544-3) 29.1 37.5-51.0 [facility] HospitalErythrocyte folate measurement (mass/volume)2019-03-15 19:20:00* Test Item Value Reference Range Interpretation Comments Red Blood Cell Folate (test code = 2283-0) 922 >498 Performed at: [facility] [address] [id number] Director: Alejo Malin MD, Phone: [phone] [facility] Centererum tissue transglutaminase IgA antibody mbbokwxpg3555-02-38 19:20:00* Test Item Value Reference Range Interpretation Comments Tissue Transglutaminase IgA Ab (test code = 83685-1) <2 0 -3 Negative 0 - 3 Weak Positive 4 - 10 Positive >10 Tissue Transglutaminase (tTG) has been identified as the endomysial antigen. Studies have demonstr- ated that endomysial IgA antibodies have over 99% specif icity for gluten sensitive enteropathy.[facility] Serum or plasma IgA measurement (mass/volume)2019-03-15 19:20:00* Test Item Value Reference Range Interpretation Comments Immunoglobulin A (test code = 2458-8) 150 90-386 Performed at: [facility] [id number] Wine Manager: Lai Olson MD, Phone: [phone] at: [facility] [employer] [id number] Director: Alejo Malin MD, Ph one: [phone] [facility] Centererum endomysium IgA antibody bzknwgqby3774-09-19 19:20:00* Test Item Value Reference Range Interpretation Comments Endomysial IgA Antibody (test code = 35354-9) Negative Negative [facility]ererum or plasma C reactive protein measurement (mass/volume)2019-03-15 19:20:00* Test Item Value Reference Range Interpretation Comments C-Reactive Protein (test code = 1988-5) 3 0-10 Performed at: [address] [id number] Director: Alejo Malin MD, Phone: [phone] HospitalT[facility] Muxhfzgzm6042-52-10 12:59:00* Test Item Value Reference Range Interpretation Comments Total Bilirubin (test code = 1975-2) 0.4 0.2-1.2 [facility] HospitalAspartate Amino Transf (AST/SGOT) 2019-03-14 12:59:00* Test Item Value Reference Range Interpretation Comments Aspartate Amino Transf (AST/SGOT) (test code = Aspartate Amino Transf (AST/SGOT)) 25 5-34 [facility] HospitalAlanine Aminotransferase (ALT/SGPT) 2019-03-14 12:59:00* Test Item Value Reference Range Interpretation Comments Alanine Aminotransferase (ALT/SGPT) (test code = 1742-6) 24 0-[address] [facility] Sdcmfib6542-71-24 12:59:00* Test Item Value Reference Range Interpretation Comments Total Protein (test code = 2885-2) 7.2 6.5-8.1 [facility] HospitalAlbumin2019-11-12 12:59:00* Test Item Value Reference Range Interpretation Comments Albumin (test code = 1751-7) 3.5 3.5-5.0 [facility] HospitalGlobulin2019-11-12 12:59:00* Test Item Value Reference Range Interpretation Comments Globulin (test code = 98728-7) 3.7 2.3-3.5 H [facility] HospitalAlbumin/Globulin Yrvix7669-34-02 12:59:00 * Test Item Value Reference Range Interpretation Comments Albumin/Globulin Ratio (test code = 1759-0) 0.9 0.8-2.0 [facility] HospitalAlkaline Nqrjlfepdpt9011-12-92 12:59:00* Test Item Value Reference Range Interpretation Comments Alkaline Phosphatase (test code = 6768-6) 69 40-[address] [facility] Iebpqztme3196-32-01 12:59:00* Test Item Value Reference Range Interpretation Comments Total Bilirubin (test code = 1975-2) 0.4 0.2-1.2 [facility] HospitalAspartate Amino Transf (AST/SGOT) 2019-03-14 12:59:00* Test Item Value Reference Range Interpretation Comments Aspartate Amino Transf (AST/SGOT) (test code = Aspartate Amino Transf (AST/SGOT)) 25 5-34 [facility] HospitalAlanine Aminotransferase (ALT/SGPT) 2019-03-14 12:59:00* Test Item Value Reference Range Interpretation Comments Alanine Aminotransferase (ALT/SGPT) (test code = 1742-6) 24 0-55 [facility] HospitalTotal Mejzmoj5657-23-11 12:59:00* Test Item Value Reference Range Interpretation Comments Total Protein (test code = 2885-2) 7.2 6.5-8.1 [facility] HospitalAlbumin2019-11-12 12:59:00* Test Item Value Reference Range Interpretation Comments Albumin (test code = 1751-7) 3.5 3.5-5.0 [facility] HospitalGlobulin2019-11-12 12:59:00* Test Item Value Reference Range Interpretation Comments Globulin (test code = 20161-6) 3.7 2.3-3.5 H [facility] HospitalAlbumin/Globulin Kwdvw6327-44-23 12:59:00 * Test Item Value Reference Range Interpretation Comments Albumin/Globulin Ratio (test code = 1759-0) 0.9 0.8-2.0 [facility] HospitalAlkaline Gqdlcckpgtr5874-50-43 12:59:00* Test Item Value Reference Range Interpretation Comments Alkaline Phosphatase (test code = 6768-6) 69 40-150 [facility] HospitalCT ABDOMEN/PELVIS OL7997-42-62 12:24:00 [facility] [address] [address] Patient Name: QUYEN KIM MR #: [id number] : 1980 Age/Sex: 38/M Req #: [id number] Adm Physician: Ordered by: WESLY SPICER DO Report #: [id number] Location: ER Room/Bed: Procedure: [id number] CT/CT ABDOMEN/PELVIS WO Exam Date: 03/14/19 Exam [...] on 03/14/19 1232 COPY TO: WESLY SPICER % (Manual)2019-03-13 21:32:00* Test Item Value Reference Range Interpretation Comments Eosinophils % (Manual) (test code = 714-6) 3 0-7 [facility] HospitalMetamyelocytes %2019-03-13 21:32:00* Test Item Value Reference Range Interpretation Comments Metamyelocytes % (test code = 740-1) 1 0-0 [facility]-11 21:32:00* Test Item Value Reference Range Interpretation Comments Anisocytosis (test code = 702-1) SLIGHT [facility]How[facility] Julboe0784-10-51 21:32:00* Test Item Value Reference Range Interpretation Comments [place] Bodies (test code = 7793-3) FEW [facility] HospitalEosinophils % (Manual)2019-03-13 21:32:00 * Test Item Value Reference Range Interpretation Comments Eosinophils % (Manual) (test code = 714-6) 3 0-7 [facility] HospitalMetamyelocytes %2019-03-13 21:32:00* Test Item Value Reference Range Interpretation Comments Metamyelocytes % (test code = 740-1) 1 0-0 H [facility]2019-11-11 21:32:00* Test Item Value Reference Range Interpretation Comments Anisocytosis (test code = 702-1) SLIGHT [facility]How[facility] Pygqml0695-73-72 21:32:00* Test Item Value Reference Range Interpretation Comments [place] Bodies (test code = 7793-3) FEW [facility] HospitalEosinophils % (Manual)2019-03-13 21:32:00 * Test Item Value Reference Range Interpretation Comments Eosinophils % (Manual) (test code = 714-6) 3 0-7 [facility] HospitalMetamyelocytes %2019-03-13 21:32:00* Test Item Value Reference Range Interpretation Comments Metamyelocytes % (test code = 740-1) 1 0-0 H [facility]2019-11-11 21:32:00* Test Item Value Reference Range Interpretation Comments Anisocytosis (test code = 702-1) SLIGHT [facility] Rsbuio9291-17-63 21:32:00* Test Item Value Reference Range Interpretation Comments [place] Bodies (test code = 7793-3) FEW [facility] HospitalUrine QYK4315-16-17 16:21:00* Test Item Value Reference Range Interpretation Comments Urine WBC (test code = 5821-4) NONE 0-5 [facility] KQK0297-60-45 16:21:00* Test Item Value Reference Range Interpretation Comments Urine RBC (test code = 98340-5) 6-10 0-5 H [facility] HospitalU[facility] Papdrtlw9704-67-11 16:21:00* Test Item Value Reference Range Interpretation Comments Urine Bacteria (test code = 98167-6) NONE NONE [facility] HospitalU[facility] Epithelial Ebxxh0137-40-11 16:21:00 * Test Item Value Reference Range Interpretation Comments Urine Epithelial Cells (test code = 19504-5) NONE NONE [facility] HospitalUrine Calcium Carbonate Crystals 2019-03-13 16:21:00* Test Item Value Reference Range Interpretation Comments Urine Calcium Carbonate Crystals (test code = 5773-7) MANY NONE H [facility] HospitalU[facility] [id number] 16:21:00* Test Item Value Reference Range Interpretation Comments Urine WBC (test code = 5821-4) NONE 0-5 [facility] HospitalU[facility] GTC8534-46-51 16:21:00* Test Item Value Reference Range Interpretation Comments Urine RBC (test code = 39631-8) 6-10 0-5 H [facility] HospitalU[facility] Rcgwasuw0269-40-36 16:21:00* Test Item Value Reference Range Interpretation Comments Urine Bacteria (test code = 95524-5) NONE NONE [facility] HospitalU[facility] Epithelial Qkhny1977-42-55 16:21:00 * Test Item Value Reference Range Interpretation Comments Urine Epithelial Cells (test code = 63143-4) NONE NONE [facility] HospitalU[facility] Calcium Carbonate Crystals 2019-03-13 16:21:00* Test Item Value Reference Range Interpretation Comments Urine Calcium Carbonate Crystals (test code = 5773-7) MANY NONE H [facility] HospitalU[facility] [id number] 16:21:00* Test Item Value Reference Range Interpretation Comments Urine WBC (test code = 5821-4) NONE 0-5 [facility] OQM4890-13-30 16:21:00* Test Item Value Reference Range Interpretation Comments Urine RBC (test code = 80371-0) 6-10 0-5 H [facility] HospitalU[facility] Vgolmnow9396-41-70 16:21:00* Test Item Value Reference Range Interpretation Comments Urine Bacteria (test code = 39562-5) NONE NONE [facility] HospitalU[facility] Epithelial Dzjjo2952-92-99 16:21:00 * Test Item Value Reference Range Interpretation Comments Urine Epithelial Cells (test code = 76542-3) NONE NONE [facility] HospitalU[facility] Calcium Carbonate Crystals 2019-03-13 16:21:00* Test Item Value Reference Range Interpretation Comments Urine Calcium Carbonate Crystals (test code = 5773-7) MANY NONE H [facility] HospitalUrine Calcium Carbonate Crystals 2019-03-13 16:21:00* Test Item Value Reference Range Interpretation Comments Urine Calcium Carbonate Crystals (test code = 5773-7) MANY NONE [facility] C3585-31-47 16:17:00 [facility] [address] [place] [address] Patient Name: QUYEN KIM MR #: [id number] : 1980 Age/Sex: 38/M Req #: [id number] Adm Physician: Ordered by: MARISOL ALBERT, PAULINE ALBERT Report #: [id number] Location: Room/Bed: Procedure: [id number] C T/CT ABDOMEN/PELVIS W Exam Date: 03/13/19 [...] COPY TO : PAULINE DAMON Urine Opiates Jgjidw0205-30-60 16:13:00* Test Item Value Reference Range Interpretation Comments Urine Opiates Screen (test code = 81595-4) POSITIVE NEGATIVE H ALL TESTS PERFORMED MANUALLY ON [employer] TOX/SEE TEST This test provides only a sc reen. Positive results should be repeated by a confirmatory test.[facility] HospitalUrine Barbiturates Zzearp0468-65-82 16:13:00* Test Item Value Reference Range Interpretation Comments Urine Barbiturates Screen (test code = 893920346) NEGATIVE NEGA TIVE [facility] Phencyclidine Cymuuv0259-39-56 16:13:00* Test Item Value Reference Range Interpretation Comments Urine Phencyclidine Screen (test code = 69272-1) NEGATIVE NEGAT ANGY [facility] HospitalU[facility] Amphetamines Dalenb1453-11-27 16:13:00* Test Item Value Reference Range Interpretation Comments Urine Amphetamines Screen (test code = 78427-2) NEGATIVE NEGATI VE [facility] Methamphetamines Ewxxoa2716-67-36 16:13:00* Test Item Value Reference Range Interpretation Comments Urine Methamphetamines Screen (test code = Urine Metha mphetamines Screen) NEGATIVE NEGATIVE [facility] Benzodiazepines Mjvqrr8796-31-45 16:13:00* Test Item Value Reference Range Interpretation Comments Urine Benzodiazepines Screen (test code = 86505-4) NEGATIVE NEG ATIVE [facility] Cocaine Bbjlvx2692-55-87 16:13:00* Test Item Value Reference Range Interpretation Comments Urine Cocaine Screen (test code = 3398-5) NEGATIVE NEGATIVE [facility] Cannabinoids Cxrvjs8009-67-14 16:13:00* Test Item Value Reference Range Interpretation Comments Urine Cannabinoids Screen (test code = 30302-2) POSITIVE NEGATI VE H THESE RESULTS ARE FOR MEDICAL TREATMENT ONLYTHIS REPORT CONTAINS UNCONFIR MED SCREENING RESULTS*POSITIVE RESULTS WILL BE CONFIRMED BY REFERENCE LAB UPON R EQUEST CUT-OFFDRUG CLASS CONCENTRATION ng/mLAmphetamines 1000Methamphetamines 1000Cocaine 300Opiate 300Phencyc lidine 25Cannabinoid 50Barbiturates 300Benzodiazepine 300Methadone 300 This test p rovides only a screen. Positive results should be repeated by a confirmatory jourdan t.[facility] HospitalU[facility] Methadone Wxlytr8609-71-03 16:13:00* Test Item Value Reference Range Interpretation Comments Urine Methadone Screen (test code = 66593-3) NEGATIVE NEGATIVE THESE RESULTS ARE FOR MEDICAL TREATMENT ONLYTHIS REPORT CONTAINS UNCONFIR MED SCREENING RESULTS*POSITIVE RESULTS WILL BE CONFIRMED BY REFERENCE LAB UPON R EQUEST CUT-OFFDRUG CLASS CONCENTRATION ng/mLAmphetamines 1000Methamphetamines 1000Cocaine Metabolite 300Opiate 300Phencyc lidine 25Cannabinoid 50Barbiturates 300Benzodiazepine 300Methadone 300[facility] Kklhgd5548-49-45 16:13:00* Test Item Value Reference Range Interpretation Comments Urine Opiates Screen (test code = 31571-3) POSITIVE NEGATIVE H ALL TESTS PERFORMED MANUALLY ON [employer] TOX/SEE TEST This test provides only a sc reen. Positive results should be repeated by a confirmatory test.[facility] HospitalUrine Barbiturates Rstuna6268-19-34 16:13:00* Test Item Value Reference Range Interpretation Comments Urine Barbiturates Screen (test code = 643119122) NEGATIVE NEGA TIVE [facility] HospitalU[facility] Phencyclidine Hczrwv0321-97-01 16:13:00* Test Item Value Reference Range Interpretation Comments Urine Phencyclidine Screen (test code = 93028-9) NEGATIVE NEGAT ANGY [facility] HospitalU[facility] Amphetamines Cmwkpf3042-73-84 16:13:00* Test Item Value Reference Range Interpretation Comments Urine Amphetamines Screen (test code = 44862-3) NEGATIVE NEGATI VE [facility] HospitalU[facility] Methamphetamines Cucyqb2287-47-14 16:13:00* Test Item Value Reference Range Interpretation Comments Urine Methamphetamines Screen (test code = Urine Metha mphetamines Screen) NEGATIVE NEGATIVE [facility] Benzodiazepines Vkknkb7340-39-08 16:13:00* Test Item Value Reference Range Interpretation Comments Urine Benzodiazepines Screen (test code = 31495-2) NEGATIVE NEG ATIVE [facility] HospitalU[facility] Cocaine Yrmsuf7511-41-67 16:13:00* Test Item Value Reference Range Interpretation Comments Urine Cocaine Screen (test code = 3398-5) NEGATIVE NEGATIVE [facility] Cannabinoids Rklmvi2226-09-59 16:13:00* Test Item Value Reference Range Interpretation Comments Urine Cannabinoids Screen (test code = 49075-4) POSITIVE NEGATI VE H THESE RESULTS ARE FOR MEDICAL TREATMENT ONLYTHIS REPORT CONTAINS UNCONFIR MED SCREENING RESULTS*POSITIVE RESULTS WILL BE CONFIRMED BY REFERENCE LAB UPON R EQUEST CUT-OFFDRUG CLASS CONCENTRATION ng/mLAmphetamines 1000Methamphetamines 1000Cocaine 300Opiate 300Phencyc lidine 25Cannabinoid 50Barbiturates 300Benzodiazepine 300Methadone 300 This test p rovides only a screen. Positive results should be repeated by a confirmatory jourdan t.[facility] HospitalU[facility] Methadone Brwmrx1307-73-85 16:13:00* Test Item Value Reference Range Interpretation Comments Urine Methadone Screen (test code = 49274-9) NEGATIVE NEGATIVE THESE RESULTS ARE FOR MEDICAL TREATMENT ONLYTHIS REPORT CONTAINS UNCONFIR MED SCREENING RESULTS*POSITIVE RESULTS WILL BE CONFIRMED BY REFERENCE LAB UPON R EQUEST CUT-OFFDRUG CLASS CONCENTRATION ng/mLAmphetamines 1000Methamphetamines 1000Cocaine Metabolite 300Opiate 300Phencyc lidine 25Cannabinoid 50Barbiturates 300Benzodiazepine 300Methadone 300[facility] HospitalUrine Opiates Cxhimp0084-57-41 16:13:00* Test Item Value Reference Range Interpretation Comments Urine Opiates Screen (test code = 80113-7) POSITIVE NEGATIVE H ALL TESTS PERFORMED MANUALLY ON [employer] TOX/SEE TEST This test provides only a sc reen. Positive results should be repeated by a confirmatory test.[facility] HospitalU[facility] Barbiturates Ishrzj4932-73-48 16:13:00* Test Item Value Reference Range Interpretation Comments Urine Barbiturates Screen (test code = 013395141) NEGATIVE NEGA TIVE [facility] Phencyclidine Wsqigf0032-34-15 16:13:00* Test Item Value Reference Range Interpretation Comments Urine Phencyclidine Screen (test code = 92190-2) NEGATIVE NEGAT ANGY [facility] Amphetamines Dmjqcj7960-64-37 16:13:00* Test Item Value Reference Range Interpretation Comments Urine Amphetamines Screen (test code = 37358-4) NEGATIVE NEGATI VE [facility] Methamphetamines Plpgbl8292-07-69 16:13:00* Test Item Value Reference Range Interpretation Comments Urine Methamphetamines Screen (test code = Urine Metha mphetamines Screen) NEGATIVE NEGATIVE [facility] Benzodiazepines Gszlkp2450-11-88 16:13:00* Test Item Value Reference Range Interpretation Comments Urine Benzodiazepines Screen (test code = 62891-9) NEGATIVE NEG ATIVE [facility] Cocaine Akxzee6134-45-46 16:13:00* Test Item Value Reference Range Interpretation Comments Urine Cocaine Screen (test code = 3398-5) NEGATIVE NEGATIVE [facility] Cannabinoids Nthmah4042-43-74 16:13:00* Test Item Value Reference Range Interpretation Comments Urine Cannabinoids Screen (test code = 84748-8) POSITIVE NEGATI VE H THESE RESULTS ARE FOR MEDICAL TREATMENT ONLYTHIS REPORT CONTAINS UNCONFIR MED SCREENING RESULTS*POSITIVE RESULTS WILL BE CONFIRMED BY REFERENCE LAB UPON R EQUEST CUT-OFFDRUG CLASS CONCENTRATION ng/mLAmphetamines 1000Methamphetamines 1000Cocaine 300Opiate 300Phencyc lidine 25Cannabinoid 50Barbiturates 300Benzodiazepine 300Methadone 300 This test p rovides only a screen. Positive results should be repeated by a confirmatory jourdan t.[facility] HospitalU[facility] Methadone Dxufcx9341-78-26 16:13:00* Test Item Value Reference Range Interpretation Comments Urine Methadone Screen (test code = 69385-1) NEGATIVE NEGATIVE THESE RESULTS ARE FOR MEDICAL TREATMENT ONLYTHIS REPORT CONTAINS UNCONFIR MED SCREENING RESULTS*POSITIVE RESULTS WILL BE CONFIRMED BY REFERENCE LAB UPON R EQUEST CUT-OFFDRUG CLASS CONCENTRATION ng/mLAmphetamines 1000Methamphetamines 1000Cocaine Metabolite 300Opiate 300Phencyc lidine 25Cannabinoid 50Barbiturates 300Benzodiazepine 300Methadone 300[facility] Mwiwb8707-27-86 16:12:00* Test Item Value Reference Range Interpretation Comments Urine Color (test code = 5778-6) YELLOW YELLOW [facility] Wguooby1874-74-98 16:12:00* Test Item Value Reference Range Interpretation Comments Urine Clarity (test code = 26830-0) SL CLOUDY CLEAR H [facility] HospitalU[facility] Specific Vtufqvh3510-46-09 16:12:00 * Test Item Value Reference Range Interpretation Comments Urine Specific [place] (test code = 5811-5) 1.025 1.010-1.02 5 [facility] bQ8251-40-90 16:12:00* Test Item Value Reference Range Interpretation Comments Urine pH (test code = 74875-7) 6 5-7 [facility] Leukocyte Gspxhklg7944-69-50 16:12:00* Test Item Value Reference Range Interpretation Comments Urine Leukocyte Esterase (test code = 60081-4) NEGATIVE NEGATIV E [facility] Xiqpord5103-65-80 16:12:00* Test Item Value Reference Range Interpretation Comments Urine Nitrite (test code = 46580-2) NEGATIVE NEGATIVE [facility] Lwsmfxv4271-61-50 16:12:00* Test Item Value Reference Range Interpretation Comments Urine Protein (test code = 73687-0) TRACE NEGATIVE H [facility] Glucose (UA)2019-03-13 16:12:00* Test Item Value Reference Range Interpretation Comments Urine Glucose (UA) (test code = 73112-0) NEGATIVE NEGATIVE [facility] Xvrtgqq4307-92-72 16:12:00* Test Item Value Reference Range Interpretation Comments Urine Ketones (test code = 78557-8) TRACE NEGATIVE H [facility] Yvriqprdivth9979-47-12 16:12:00* Test Item Value Reference Range Interpretation Comments Urine Urobilinogen (test code = 95532-0) 1 0.2-1 [facility] Arbykkzzb6474-15-67 16:12:00* Test Item Value Reference Range Interpretation Comments Urine Bilirubin (test code = 1977-8) SMALL NEGATIVE [facility] Ylbxe2808-72-94 16:12:00* Test Item Value Reference Range Interpretation Comments Urine Blood (test code = 77896-0) 1+ NEGATIVE [facility] Cdabi7671-79-27 16:12:00* Test Item Value Reference Range Interpretation Comments Urine Color (test code = 5778-6) YELLOW YELLOW [facility] Umynzee4899-24-96 16:12:00* Test Item Value Reference Range Interpretation Comments Urine Clarity (test code = 34657-7) SL CLOUDY CLEAR H [facility] Specific Lcclfiq4474-17-97 16:12:00 * Test Item Value Reference Range Interpretation Comments Urine Specific [place] (test code = 5811-5) 1.025 1.010-1.02 5 [facility] mK1671-44-25 16:12:00* Test Item Value Reference Range Interpretation Comments Urine pH (test code = 92959-4) 6 5-7 [facility] Leukocyte Tpuelhdj9205-47-25 16:12:00* Test Item Value Reference Range Interpretation Comments Urine Leukocyte Esterase (test code = 60554-9) NEGATIVE NEGATIV E [facility] Gmmnrqp5953-53-22 16:12:00* Test Item Value Reference Range Interpretation Comments Urine Nitrite (test code = 45723-4) NEGATIVE NEGATIVE [facility] Ltlsbxn1243-81-10 16:12:00* Test Item Value Reference Range Interpretation Comments Urine Protein (test code = 78393-7) TRACE NEGATIVE H [facility] [facility]2019-03-13 16:12:00* Test Item Value Reference Range Interpretation Comments Urine Glucose (UA) (test code = 65276-2) NEGATIVE NEGATIVE [facility] Wmdhwmy2582-86-02 16:12:00* Test Item Value Reference Range Interpretation Comments Urine Ketones (test code = 95943-7) TRACE NEGATIVE H [facility] Qipubxdgfdnt5208-86-37 16:12:00* Test Item Value Reference Range Interpretation Comments Urine Urobilinogen (test code = 52152-7) 1 0.2-1 [facility] Dhiczwoel9455-12-19 16:12:00* Test Item Value Reference Range Interpretation Comments Urine Bilirubin (test code = 1977-8) SMALL NEGATIVE [facility] Nsium8662-97-12 16:12:00* Test Item Value Reference Range Interpretation Comments Urine Blood (test code = 75768-8) 1+ NEGATIVE [facility] Kzmve5618-34-42 16:12:00* Test Item Value Reference Range Interpretation Comments Urine Color (test code = 5778-6) YELLOW YELLOW [facility] Imwbnof1770-16-51 16:12:00* Test Item Value Reference Range Interpretation Comments Urine Clarity (test code = 20821-3) SL CLOUDY CLEAR H [facility] Specific Csmmmon4019-90-02 16:12:00 * Test Item Value Reference Range Interpretation Comments Urine Specific [place] (test code = 5811-5) 1.025 1.010-1.02 5 [facility] iA2451-06-04 16:12:00* Test Item Value Reference Range Interpretation Comments Urine pH (test code = 65267-7) 6 5-7 [facility] Leukocyte Vneynozq8920-41-46 16:12:00* Test Item Value Reference Range Interpretation Comments Urine Leukocyte Esterase (test code = 13498-0) NEGATIVE NEGATIV E [facility] Ayulypd6272-83-37 16:12:00* Test Item Value Reference Range Interpretation Comments Urine Nitrite (test code = 61627-5) NEGATIVE NEGATIVE [facility] Kzvbmmh3125-65-99 16:12:00* Test Item Value Reference Range Interpretation Comments Urine Protein (test code = 17761-6) TRACE NEGATIVE H [facility] Glucose (UA)2019-03-13 16:12:00* Test Item Value Reference Range Interpretation Comments Urine Glucose (UA) (test code = 00339-5) NEGATIVE NEGATIVE [facility] Erqhwon3805-52-33 16:12:00* Test Item Value Reference Range Interpretation Comments Urine Ketones (test code = 74180-8) TRACE NEGATIVE H [facility] Rcpftcjmyzql2952-38-29 16:12:00* Test Item Value Reference Range Interpretation Comments Urine Urobilinogen (test code = 10672-8) 1 0.2-1 [facility] Ohzzegcya4909-90-54 16:12:00* Test Item Value Reference Range Interpretation Comments Urine Bilirubin (test code = 1977-8) SMALL NEGATIVE [facility] Fiiup8138-89-98 16:12:00* Test Item Value Reference Range Interpretation Comments Urine Blood (test code = 01955-0) 1+ NEGATIVE [facility] HospitalAcetaminophen Crjik4358-97-35 15:04:00* Test Item Value Reference Range Interpretation Comments Acetaminophen Level (test code = 28422-9) < 3 10-30 L [facility] HospitalEthyl Alcohol Fgclw9021-62-63 15:04:00* Test Item Value Reference Range Interpretation Comments Ethyl Alcohol Level (test code = 5643-2) < 10.0 0.0-10.0 [facility] Abuzq3680-30-31 15:04:00* Test Item Value Reference Range Interpretation Comments Salicylates Level (test code = 4024-6) < 5.0 0-30 [facility] HospitalAcetaminophen Ggtxm4980-54-93 15:04:00* Test Item Value Reference Range Interpretation Comments Acetaminophen Level (test code = 27247-3) < 3 10-30 L [facility] HospitalEthyl Alcohol Cejdp9790-63-33 15:04:00* Test Item Value Reference Range Interpretation Comments Ethyl Alcohol Level (test code = 5643-2) < 10.0 0.0-10.0 [facility] Misyz3446-75-92 15:04:00* Test Item Value Reference Range Interpretation Comments Salicylates Level (test code = 4024-6) < 5.0 0-30 [facility] HospitalAcetaminophen Xyvpc1976-77-60 15:04:00* Test Item Value Reference Range Interpretation Comments Acetaminophen Level (test code = 03679-1) < 3 10-30 L [facility] HospitalEth[facility] Alcohol Wbksy7374-66-45 15:04:00* Test Item Value Reference Range Interpretation Comments Ethyl Alcohol Level (test code = 5643-2) < 10.0 0.0-10.0 [facility] Xrmmd5251-83-32 15:04:00* Test Item Value Reference Range Interpretation Comments Salicylates Level (test code = 4024-6) < 5.0 0-30 [facility] HospitalAcetaminophen Hdzby9469-19-41 15:04:00* Test Item Value Reference Range Interpretation Comments Acetaminophen Level (test code = 11091-0) < 3 10-30 L [facility] HospitalEth[facility] Alcohol Cjjwc6205-30-27 15:04:00* Test Item Value Reference Range Interpretation Comments Ethyl Alcohol Level (test code = 5643-2) < 10.0 0.0-10.0 [facility] Psaup1089-83-06 15:04:00* Test Item Value Reference Range Interpretation Comments Salicylates Level (test code = 4024-6) < 5.0 0-30 [facility] HospitalCHES SINGLE (PORTABLE)2019-03-13 14:46:00 [place] [address] Patient Name: QUYEN KIM MR #: [id number] : 1980 Age/Sex: 38/M Req #: [id number] Adm Physician: Ordered by: MARISOL ALBERT, PAULINE ALBERT Report #: [id number] Location: ER Room/Bed: Procedure: [id number] D X/CHEST SINGLE (PORTABLE) Exam Date: 03/13/19 [...] 03/13/19 1446 COPY TO: PAULINE DAMON Sodium Ngmue4151-66-60 14:43:00* Test Item Value Reference Range Interpretation Comments Sodium Level (test code = 2951-2) 136 136-145 [facility] HospitalPotassium Blmez6090-25-67 14:43:00* Test Item Value Reference Range Interpretation Comments Potassium Level (test code = 2823-3) 3.6 3.5-5.1 [facility] HospitalChloride Fryii7529-60-14 14:43:00* Test Item Value Reference Range Interpretation Comments Chloride Level (test code = 2075-0) 103 98-107 [facility] HospitalCarbon Dioxide Fbtqj4340-05-11 14:43:00* Test Item Value Reference Range Interpretation Comments Carbon Dioxide Level (test code = 2028-9) 23 22-29 [facility] HospitalAnion Owr3383-79-13 14:43:00* Test Item Value Reference Range Interpretation Comments Anion Gap (test code = 53122-0) 13.6 8-16 [facility] HospitalBlood Urea Zldfclyx1687-13-16 14:43:00* Test Item Value Reference Range Interpretation Comments Blood Urea Nitrogen (test code = 3094-0) 10 7-26 [facility] HospitalCreatinine2019-11-11 14:43:00* Test Item Value Reference Range Interpretation Comments Creatinine (test code = 2160-0) 1.48 0.72-1.25 H [facility] HospitalBUN/Creatinine Ufjzf6806-76-34 14:43:00* Test Item Value Reference Range Interpretation Comments BUN/Creatinine Ratio (test code = 3097-3) 7 6-25 [facility] HospitalEstimat Glomerular Filtration Rate 2019-03-13 14:43:00* Test Item Value Reference Range Interpretation Comments Estimat Glomerular Filtration Rate (test code = 812314473) > 60 >60 Ranges were taken from the National Kidney Disease Education Program and the [facility] Kid[facility] Foundation literature.Reference ranges:60 or greater: Mzpaza09-61 ( for 3 consecutive months): Chronic kidney disease 15 or less: Kidney failureCHI [facility] CenterGlucose Zhlpr4782-47-30 14:43:00* Test Item Value Reference Range Interpretation Comments Glucose Level (test code = DFK1914) 84 74-118 [facility] HospitalCalcium Ummxj7978-98-89 14:43:00* Test Item Value Reference Range Interpretation Comments Calcium Level (test code = 28669-7) 9.5 8.4-10.2 [facility] HospitalMagnesium Lhzem3757-08-36 14:43:00* Test Item Value Reference Range Interpretation Comments Magnesium Level (test code = 63512-0) 1.7 1.3-2.1 [facility] HospitalTotal Prbxjncxe4718-43-33 14:43:00* Test Item Value Reference Range Interpretation Comments Total Bilirubin (test code = 1975-2) 0.4 0.2-1.2 [facility] HospitalAspartate Amino Transf (AST/SGOT) 2019-03-13 14:43:00* Test Item Value Reference Range Interpretation Comments Aspartate Amino Transf (AST/SGOT) (test code = Aspartate Amino Transf (AST/SGOT)) 26 5-34 [facility] HospitalAlanine Aminotransferase (ALT/SGPT) 2019-03-13 14:43:00* Test Item Value Reference Range Interpretation Comments Alanine Aminotransferase (ALT/SGPT) (test code = 1742-6) 31 0-55 [facility] HospitalTotal Eitomvb0341-00-41 14:43:00* Test Item Value Reference Range Interpretation Comments Total Protein (test code = 2885-2) 7.7 6.5-8.1 [facility] HospitalAlbumin2019-11-11 14:43:00* Test Item Value Reference Range Interpretation Comments Albumin (test code = 1751-7) 3.8 3.5-5.0 [facility] HospitalGlobulin2019-11-11 14:43:00* Test Item Value Reference Range Interpretation Comments Globulin (test code = 30140-5) 3.9 2.3-3.5 H [facility] HospitalAlbumin/Globulin Vlawp5364-74-84 14:43:00 * Test Item Value Reference Range Interpretation Comments Albumin/Globulin Ratio (test code = 1759-0) 1.0 0.8-2.0 [facility] HospitalAlkaline Tjoxrwygrbg6548-65-64 14:43:00* Test Item Value Reference Range Interpretation Comments Alkaline Phosphatase (test code = 6768-6) 75 40-150 [facility] HospitalLipase2019-11-11 14:43:00* Test Item Value Reference Range Interpretation Comments Lipase (test code = 3040-3) 12 8-78 [facility] HospitalMagnesium Lvpzg0640-80-00 14:43:00* Test Item Value Reference Range Interpretation Comments Magnesium Level (test code = 39687-0) 1.7 1.3-2.1 [facility] HospitalMagnesium Dopkg5722-72-90 14:43:00* Test Item Value Reference Range Interpretation Comments Magnesium Level (test code = 03274-2) 1.7 1.3-2.1 [facility] HospitalWhite Blood Bxwvl3978-10-51 14:22:00* Test Item Value Reference Range Interpretation Comments White Blood Count (test code = 6690-2) 3.05 4.8-10.8 L [facility] HospitalRed Blood Aysoy8424-17-67 14:22:00* Test Item Value Reference Range Interpretation Comments Red Blood Count (test code = 789-8) 3.51 4.3-5.7 L [facility] HospitalHemoglobin2019-11-11 14:22:00* Test Item Value Reference Range Interpretation Comments Hemoglobin (test code = 10420-5) 11.5 14.0-18.0 L [facility] HospitalHematocrit2019-11-11 14:22:00* Test Item Value Reference Range Interpretation Comments Hematocrit (test code = 4544-3) 33.3 38.2-49.6 L [facility] HospitalMean Corpuscular Mxjsbx4641-94-16 14:22:00* Test Item Value Reference Range Interpretation Comments Mean Corpuscular Volume (test code = 787-2) 94.9 81-99 [facility] HospitalMean Corpuscular Ygldjuqyko1490-96-12 14:22:00* Test Item Value Reference Range Interpretation Comments Mean Corpuscular Hemoglobin (test code = 785-6) 32.8 28-32 H [facility] HospitalMean Corpuscular Hemoglobin Concent 2019-03-13 14:22:00* Test Item Value Reference Range Interpretation Comments Mean Corpuscular Hemoglobin Concent (test code = 786-4) 34.5 31-35 [facility] HospitalRed Cell Distribution Rbqmi8365-95-86 14:22:00* Test Item Value Reference Range Interpretation Comments Red Cell Distribution Width (test code = 34813-5) 11.7 11.7 -14.4 [facility] HospitalPlatelet Uaeev2443-26-38 14:22:00* Test Item Value Reference Range Interpretation Comments Platelet Count (test code = 777-3) 189 140-360 [facility] HospitalNeutrophils (%) (Auto)2019-03-13 14:22:00 * Test Item Value Reference Range Interpretation Comments Neutrophils (%) (Auto) (test code = 86098-3) 53.1 38.7-80.0 [facility] HospitalLymphocytes (%) (Auto)2019-03-13 14:22:00 * Test Item Value Reference Range Interpretation Comments Lymphocytes (%) (Auto) (test code = 736-9) 33.1 18.0-39.1 [facility] HospitalMonocytes (%) (Auto)2019-03-13 14:22:00* Test Item Value Reference Range Interpretation Comments Monocytes (%) (Auto) (test code = 5905-5) 10.8 4.4-11.3 [facility] HospitalEosinophils (%) (Auto)2019-03-13 14:22:00 * Test Item Value Reference Range Interpretation Comments Eosinophils (%) (Auto) (test code = 713-8) 2.0 0.0-6.0 [facility] HospitalBasophils (%) (Auto)2019-03-13 14:22:00* Test Item Value Reference Range Interpretation Comments Basophils (%) (Auto) (test code = 706-2) 0.3 0.0-1.0 [facility] HospitalIM GRANULOCYTES %2019-03-13 14:22:00* Test Item Value Reference Range Interpretation Comments IM GRANULOCYTES % (test code = IM GRANULOCYTES %) 0.7 0.0- 1.0 [facility] HospitalNeutrophils # (Auto)2019-03-13 14:22:00* Test Item Value Reference Range Interpretation Comments Neutrophils # (Auto) (test code = 751-8) 1.6 2.1-6.9 L [facility] HospitalLymphocytes # (Auto)2019-03-13 14:22:00* Test Item Value Reference Range Interpretation Comments Lymphocytes # (Auto) (test code = 21849-2) 1.0 1.0-3.2 [facility] HospitalMonocytes # (Auto)2019-03-13 14:22:00* Test Item Value Reference Range Interpretation Comments Monocytes # (Auto) (test code = 742-7) 0.3 0.2-0.8 [facility] HospitalEosinophils # (Auto)2019-03-13 14:22:00* Test Item Value Reference Range Interpretation Comments Eosinophils # (Auto) (test code = 711-2) 0.1 0.0-0.4 [facility] HospitalBasophils # (Auto)2019-03-13 14:22:00* Test Item Value Reference Range Interpretation Comments Basophils # (Auto) (test code = 704-7) 0.0 0.0-0.1 [facility] HospitalAbsolute Immature Granulocyte (auto 2019-03-13 14:22:00* Test Item Value Reference Range Interpretation Comments Absolute Immature Granulocyte (auto (jourdan t code = Absolute Immature Granulocyte (auto) 0.02 0-0.1 [facility] HospitalManual blood eosinophil count as percentage of total jxmuhdzrvu3786-15-25 12:55:00* Test Item Value Reference Range Interpretation Comments Eosinophils % (Manual) (test code = 714-6) 3 0-7 [facility] blood metamyelocytes/100 alraeaduha4944-57-64 12:55:00* Test Item Value Reference Range Interpretation Comments Metamyelocytes % (test code = 740-1) 1 0-0 [facility] HospitalBl[facility] anisocytosis detection by light puwpnjxogn9091-95-86 12:55:00* Test Item Value Reference Range Interpretation Comments Anisocytosis (test code = 702-1) SLIGHT [facility]Bl[facility] [place] bodies detection by light iivzghsjwc3426-86-86 12:55:00* Test Item Value Reference Range Interpretation Comments [place] Bodies (test code = 7793-3) FEW [facility] or plasma acetaminophen measurement by screening method (mass/volume)2019-03-13 12:55:00* Test Item Value Reference Range Interpretation Comments Acetaminophen Level (test code = 10852-6) < 3 10-30 [facility] Centererum or plasma ethanol measurement (mass/volume)2019-03-13 12:55:00* Test Item Value Reference Range Interpretation Comments Ethyl Alcohol Level (test code = 5643-2) < 10.0 0.0-10.0 [facility] Centererum or plasma salicylates measurement (mass/volume)2019-03-13 12:55:00* Test Item Value Reference Range Interpretation Comments Salicylates Level (test code = 4024-6) < 5.0 0-30 [facility] eosinophil count as percentage of total kfcgkywtys0492-80-45 12:55:00* Test Item Value Reference Range Interpretation Comments Eosinophils % (Manual) (test code = 714-6) 3 0-7 [facility] HospitalManual blood metamyelocytes/100 jojcdoeqny8193-02-59 12:55:00* Test Item Value Reference Range Interpretation Comments Metamyelocytes % (test code = 740-1) 1 0-0 [facility] HospitalBlood anisocytosis detection by light oevtkgbzav3341-61-74 12:55:00* Test Item Value Reference Range Interpretation Comments Anisocytosis (test code = 702-1) SLIGHT [facility] HospitalBlood [place] bodies detection by light tdsfsaenya7832-00-63 12:55:00* Test Item Value Reference Range Interpretation Comments [place] Bodies (test code = 7793-3) FEW [facility]ererum or plasma acetaminophen measurement by screening method (mass/volume)2019-03-13 12:55:00* Test Item Value Reference Range Interpretation Comments Acetaminophen Level (test code = 79446-8) < 3 10-30 [facility] Centererum or plasma ethanol measurement (mass/volume)2019-03-13 12:55:00* Test Item Value Reference Range Interpretation Comments Ethyl Alcohol Level (test code = 5643-2) < 10.0 0.0-10.0 [facility]ererum or plasma salicylates measurement (mass/volume)2019-03-13 12:55:00* Test Item Value Reference Range Interpretation Comments Salicylates Level (test code = 4024-6) < 5.0 0-30 [facility] HospitalCalcium carbonate crystals detection in urine sediment by light forarbxtey6598-37-59 11:35:00* Test Item Value Reference Range Interpretation Comments Urine Calcium Carbonate Crystals (test code = 5773-7) MANY NONE [facility] HospitalCalcium carbonate crystals detection in urine sediment by light glxcignvkh9067-39-53 11:35:00* Test Item Value Reference Range Interpretation Comments Urine Calcium Carbonate Crystals (test code = 5773-7) MANY NONE [facility]- DUP AB/PEL/SC XVSU4597-42-50 11:31:00 Name: QUYEN KIM [facility] : 1980 Age/S: 38 / M [address] Unit #: [id number] Loc: [place] [address] Phys: Freddie Lira MD Acct: [id number] Di s Date: Status: REG ER PHONE #: Exam Date: 02/28/2019 1110 FAX #: Reason: scrotal pain EXAMS: CPT CODE: [id number] DUP AB/PEL/SC COMP 27069 REASON FOR EXAM: testicul ar pain, vomiting EXAM ORDER DATE: 02/28/2019 8:52 AM Attending MRickie.: Kyra Lira MD PROCEDURE: - US SCROTUM [...] 1 Signed Report (CONTINUED) Name: QUYEN KIM [facility] : 1980 Age/S: 38 / M [address] Unit #: [id number] Loc: [place] [address] Phys: Kyra Lira MD Acct: [id number] Dis Date: St [facility]: [facility] ER PHONE #: [phone] Exam Theodore e: 02/28/2019 1110 FAX #: [phone] Reason: scrotal pain EXAMS: CPT CODE: [id number] DUP AB/PEL/SC COMP 89821 <Continued> personal/family history of germ cell tumour maldescent orchidopexy testicular atrophy No evidence of torsion or orchitis. at 1131 Reported and signed by: Alli Felipe MD CC: Kyra Lira MD Technologist: ARNULFO COATS RT(R),RDMS Trnscb Date/Time: 02/28/2019 (1131) Hosea.[email or web address] PAGE 2 Signed Report - US SCROTUM AND CFDP4824-79-84 11:31:00 Name: QUYEN KIM [facility] : 1980 Age/S: 38 / M [address] [facility] Unit #: [id number] Loc: [place] [address] Phys: Kyra Lira MD Acct: [id number] Dis Date: Status: REG ER PHONE #: [phone] Exam Date: 02/28/2019 1110 FAX #: [phone] Reason: testicular pain, vomiting EXAMS: CPT CODE: [id number] US SCROTUM AND CNTS 71802 REASON FOR EXAM: testicular pain, vomiting EXAM ORDER DATE: 02/28/2019 8:52 AM Attending MCoreyD.: Kyra Lira MD PROCEDURE: - US SCROTUM [...] 1 Signed Report (CONTINUED) Name: QUYEN KIM [facility] : 1980 Age/S: 38 / M [address] [facility] Unit #: [id number] Loc: [place] [address] Phys: Kyra Lira MD Acct: [id number] Dis Date: Status: REG ER PHONE #: [phone] Exam Date: 02/28/2019 1110 FAX #: [phone] Reason: testicular pain, vomiting EXAMS: CPT CODE: [id number] US SCROTUM AND CNTS 41012 <Continued> personal/family history of germ cell tumour maldescent orchidopexy testicular atrophy No evidence of torsion or orchitis. at 1131 Reported and signed by: Alli Felipe MD CC: Kyra Lira MD Technologist: ARNULFO COATS RT(R),[facility] Trnvab Date/Time: 02/28/2019 (1131) t.[email or web address] Orig Print D/T: S: 02/28/2019 (1134) Probe: PAGE 2 Signed Report DRUGS OF ABUSE SCREEN WC1140-25-07 10:46:00* Test Item Value Reference Range Interpretation [...] NEGATIVE <300 ng/mL ADD ON AT 1002URINALYSIS GRFDNKKI0498-88-46 10:32:00* Test Item Value Reference Range Interpretation [...] Urine Source? Clean CatchDRUGS OF ABUSE SCREEN SA3040-13-76 10:32:00* Test Item Value Reference Range Interpretation [...] = [place]) <300 ng/mL ADD ON AT [address] [place] [address] W/O GJTS1688-34-05 10:13:00* Test Item Value Reference Range Interpretation [...] MPV) 11.4 fL 6.7-11.0 H BASIC METABOLIC YEICI4161-96-91 10:10:00* Test Item Value Reference Range Interpretation [...] CA) 9.8 mg/dL 8.5-10.1 N HEPATIC FUNCTION QVUTC8879-85-49 10:10:00* Test Item Value Reference Range Interpretation [...] reference range due to change in reagent. NFAXWK7909-56-87 10:10:00* Test Item Value Reference Range Interpretation Comments LIPASE (test code = LIP) 123 U/L 73.0-393.0 N QUSIDJFP-L7058-65-29 10:10:00* Test Item Value Reference Range Interpretation Comments TROPONIN-I (test code = TROPI) <0.015 ng/mL 0-0.045 N BASIC METABOLIC APJCA0114-35-83 09:58:00* Test Item Value Reference Range Interpretation [...] code = CA) mg/dL 8.5-10.1 HEPATIC FUNCTION AFUOS7857-10-85 09:58:00* Test Item Value Reference Range Interpretation [...] TOTAL (test code = ALKP) IUnit/L 45-117 AFBHWI9333-04-01 09:58:00* Test Item Value Reference Range Interpretation Comments LIPASE (test code = LIP) U/L 73.0-393.0 AEDXUTNF-T8684-26-29 09:58:00* Test Item Value Reference Range Interpretation Comments TROPONIN-I (test code = TROPI) ng/mL 0-0.045 - CT ABD PELVIS W/O DBHN9716-80-92 09:34:00 Name: QUYEN KIM [facility] : 1980 Age/S: 38 / M [address] [facility] Unit #: [id number] Loc: [place] [address] Phys: Kyra Lira MD Acct: [id number] Dis Date: Status: REG ER PHONE #: [phone] Exam Date: 02/28/2019904 FAX #: [phone] Reason: LLQ ttp, vomiting EXAMS: CPT CODE: [id number] CT ABD PELVIS W/O CONT 83321 REASON FOR EXAM: LLQ ttp, vomiting EXAM [...] and appendix: Appendix is not clearly visualized maryann kaur are no inflammatory changes in the right lower abdomen in the expe cted region of the appendix. PAGE 1 Signed Re port (CONTINUED) Name: QUYEN KIM [facility] : 1980 Age/S: 38 / M [address] Unit #: [id number] Loc: [place] [address] Phys: Kyra Lira MD Acct: [id number] Dis Date: Status: REG ER PHONE #: [phone] Exam Date: 02/28/2019904 FAX #: [phone] Reason: LLQ ttp, vomiting EXAMS: CPT CODE: [id number] CT ABD PELVIS W/O CONT 35956 <Continued> Abdominal vascular structures: Circumaortic left renal [...] tract in the left lower abdomen. Location: [facility] at 0934 Reported and signed by: Alli Felipe MD CC: Kyra Lira MD Technologist:Radames Chang RT(R),(MR),(CT) CTDI: DLP: Trnscb Date/Time: 02/28/2019 (0934) t.FAVIANR.RR31 Orig Print D/T: S: 02/28/2019 (0937) PAGE 2 Signed Report - CT ABD PELVIS W/O PXME5533-85-16 16:32:00 Name: QUYEN KIM [facility] : 1980 Age/S: 38 / M [address] Unit #: [id number] Loc: [place] [address] Phys: Trudy Benjamin NP Acct: [id number] Dis Date: Status: REG ER PHONE #: [phone] Exam Date: 02/24/2019 1430 FAX #: [phone] Reason: abdominal pain EXAMS: CPT CODE: [id number] CT ABD PELVIS W/O CONT 41288 REASON FOR EXAM: abdominal pain EXAM ORDER [...] 1 Signed Report (CONTINUED) Name: QUYEN KIM [facility] : 1980 Age/S: 38 / M [address] [facility] Unit #: [id number] Loc: [place], [place] [address] Phys: Trudy Benjamin CIVIL DRAFTER Acct: [id number] Dis Date: Status: REG ER PHONE #: [phone] Exam Date: 02/24/2019 1430 FAX #: [phone] Reason: abdominal pain EXAMS: CPT CODE: [id number] CT ABD PELVIS W/O CONT 16286 < Continued> grossly normal Peritoneum and retroperitoneum: [...] inguinal canal. Correlate with physical exam. Location: [facility] at 1632 Reported and signed by: Alli Felipe MD CC: Trudy Benjamin CIVIL DRAFTER; Melyssa Ramirez DO Technologist:Pavel Maciel RT(R) CTDI: DLP: Trnscb Date/Time: 02/24/2019 (1631) IanRR31 Orig Print D/T: S: 02/24/2019 (4870) PAGE 2 Signed Report DRUGS OF ABUSE [...] NEGATIVE <300 ng/mL DRUGS OF ABUSE SCREEN ZA2235-26-69 16:07:00* Test Item Value Reference Range Interpretation [...] code = [place]) NEGATIVE <300 ng/mL URINALYSIS ISUQSFBX8459-77-56 15:47:00* Test Item Value Reference Range Interpretation [...] FEW A Urine Source? Clean CatchBASIC METABOLIC [id number] 14:12:00* Test Item Value Reference Range Interpretation [...] CA) 9.9 mg/dL 8.5-10.1 N HEPATIC FUNCTION [id number] 14:12:00* Test Item Value Reference Range Interpretation [...] reference range due to change in reagent. [id number] 14:12:00* Test Item Value Reference Range Interpretation Comments LIPASE (test code = LIP) 80 U/L 73.0-393.0 N BASIC METABOLIC [id number] 14:00:00* Test Item Value Reference Range Interpretation [...] code = CA) mg/dL 8.5-10.1 HEPATIC FUNCTION [id number] 14:00:00* Test Item Value Reference Range Interpretation [...] TOTAL (test code = ALKP) IUnit/L 45-117 [id number] 14:00:00* Test Item Value Reference Range Interpretation Comments LIPASE (test code = LIP) U/L 73.0-393.0 CBC W/O [id number] 13:50:00* Test Item Value Reference Range Interpretation [...] MPV) 10.4 fL 6.7-11.0 N CBC W/O [id number] 13:49:00* Test Item Value Reference Range Interpretation [...]
[2019-12-24] MEDS ORDERED: ONDANSETRON HCL INJ 2MG/ML 2ML 2 MG/ML VIAL IV NR ×2 (13:45→14:00)
[2019-12-24] MEDS ORDERED: MORPHINE SULFATE INJ 4 MG/ML INJ 1ML IV NR (14:00)
[2019-12-24 14:06] LABS: BASOPHILS % 0.3 % (0.0-1.0); EOSINOPHILS % 0.2 % (0.0-6.0); HEMATOCRIT 44.5 % (38.2-49.6); HEMOGLOBIN 15.6 g/dL (14.0-18.0); LYMPHOCYTES # (AUTO) 1.8 (1.0-3.2); LYMPHOCYTES % 29.1 % (18.0-39.1); MEAN CORPUSCULAR HEMOGLOBIN 32.5 pg (28-32); MEAN CORPUSCULAR HGB CONC 35.1 g/dL (31-35); MEAN CORPUSCULAR VOLUME 92.7 fL (81-99); MONOCYTES # (AUTO) 0.4 (0.2-0.8); MONOCYTES % 6.1 % (4.4-11.3); NEUTROPHILS # (AUTO) 3.9 (2.1-6.9); NEUTROPHILS % 64.1 % (38.7-80.0); PLATELET COUNT 262 x10e3/uL (140-360); RED CELL DISTRIBUTION WIDTH 11.5 % (11.7-14.4)
[2019-12-24] MEDS ORDERED: MORPHINE SULFATE 2 MG/ML SYR 1ML ONE (14:06)
--- NOTE | 2019-12-24 14:49 | Diagnostic Imaging Report ---
EXAMINATION: CHEST SINGLE (PORTABLE) INDICATION: Pain. Nausea and vomiting. COMPARISON: 04/04/2019. FINDINGS: TUBES and LINES: None. LUNGS: Lungs are well inflated. Lungs are clear. There is no evidence of pneumonia or pulmonary edema. PLEURA: No pleural effusion or pneumothorax. HEART AND MEDIASTINUM: The cardiomediastinal silhouette is unremarkable. BONES AND SOFT TISSUES: No acute osseous lesion. Soft tissues are unremarkable. UPPER ABDOMEN: No free air under the diaphragm. IMPRESSION: No acute thoracic abnormality. Signed by: Dr. Renetta Velasquez M.D. on 12/24/2019 2:46 PM
[2019-12-24 15:39] LABS: ALBUMIN 5.1 g/dL (3.5-5.0); ALBUMIN/GLOBULIN RATIO 1.2 (0.8-2.0); ANION GAP 22.3 mmol/L (8-16); CALCIUM 10.8 mg/dL (8.4-10.2); CREATININE, SERUM 1.99 mg/dL (0.72-1.25); POTASSIUM 3.3 mmol/L (3.5-5.1)
[2019-12-24 16:41] LABS: AMPHETAMINES SCREEN,URINE NEGATIVE (NEGATIVE); BENZODIAZEPINES SCREEN,URINE NEGATIVE (NEGATIVE); PHENCYCLIDINE SCREEN,URINE NEGATIVE (NEGATIVE)
== END 2019-12-24 17:46 | disposition home or self-care (01) ==
LOC: ER 13:40
DX: R11.2 Nausea with vomiting, unspecified (principal); N28.9 Disorder of kidney and ureter, unspecified; I10 Essential (primary) hypertension; B20 Human immunodeficiency virus [HIV] disease; F17.210 Nicotine dependence, cigarettes, uncomplicated
CPT/HCPCS: 36415; 71045; 80053; 80307; 83690; 85025; 99284; U0002; J2270; J2405; J7030

== ENCOUNTER 2019-12-26 06:07 | Emergency (ER) | payer OTHER ==
[~2019-12-26] VITALS: Ht 200.7 cm; Wt 54.4 kg
[2019-12-26] MEDS ORDERED: HALOPERIDOL LACTATE 5 MG/ML VIAL IM ONE (06:30)
[2019-12-26] MEDS ORDERED: SODIUM CHLORIDE 0.9% 1000ML 1,000 ML IV SCH (06:30)
--- NOTE | 2019-12-26 06:33 | Emergency Department Note ---
History of Present Illnes History of Present Illness Chief Complaint: Abdominal Complaints History of Present Illness This is a 39 year old male Chief Complaint Comment 39 Y/O MALE PT AAOX3 PRESENTS TO THE ER C/O NON-RADIATING EPIGASTRIC ABD PAIN WITH N/V/D AND UNABLE TO KEEP ANY LIQUIDS/FOOD DOWN X3 WEEKS; PT STATES HE IS SCHEDULED TO SEE DR. Connie HAYS ON WEDNESDAY; DESCRIBES PAIN 12/10. Has not been able to keep his antiretrovirals down. Was trialed on compazine 1 week ago but has only been able to take this once. Historian: Patient Arrival Mode: Car Pockets And Pieces Necktie Operator Required: No Onset (how long ago): week(s) (3) Location: Stomach Quality: nausea Radiation: Reports non-radiation Severity: severe Onset quality: gradual Duration (how long): week(s) (3) Timing of current episode: constant Progression: unchanged Chronicity: new Context: Denies recent illness Relieving factors: none Exacerbating factors: none Associated symptoms: Reports denies other symptoms Treatments prior to arrival: none Past Medical/Family History Physician Review I have reviewed the patient's past medical and family history. Any updates have been documented here. 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 Social History Smoking Cessation: Current every day smoker Alcohol Use: Occasional Any Illegal Drug Use: No Other Last Tetanus: UTD Any Pre-Existing Lines (PICC,: No Review of Systems Review of Systems Constitutional: Reports no symptoms EENTM: Reports no symptoms Cardiovascular: Reports no symptoms Respiratory: Reports no symptoms Gastrointestinal: Reports as per HPI, Reports abdominal pain (Diffuse), Reports nausea, Reports vomiting; Denies constipation Genitourinary: Reports no symptoms Musculoskeletal: Reports no symptoms Integumentary: Reports no symptoms Neurological: Reports no symptoms Psychological: Reports no symptoms Endocrine: Reports no symptoms Hematological/Lymphatic: Reports no symptoms Physical Exam Related Data Allergies: Coded Allergies: No Known Drug Allergies (Verified Allergy, Unknown, 03/16/19) Triage Vital Signs Vital Signs Date Time Temp Pulse Resp B/P (MAP) Pulse Ox O2 Delivery O2 Flow Rate FiO2 12/26/19 06:07 98.6 83 20 162/104 100 Room Air Vital signs reviewed: Yes Physical Exam CONSTITUTIONAL Constitutional: Present well-developed, Present well-nourished, Present distressed HENT HENT: Present normocephalic, Present atraumatic, Present oropharynx clear/moist, Present nose normal HENT L/R: Present left ext ear normal, Present right ext ear normal EYES Eyes: Reports PERRL, Reports conjunctivae normal NECK Neck: Present ROM normal PULMONARY Pulmonary: Present effort normal, Present breath sounds normal CARDIOVASCULAR Cardiovascular: Present regular rhythm, Present heart sounds normal, Present capillary refill normal, Present normal rate GASTROINTESTINAL Abdominal: Present soft, Present nontender, Present bowel sounds normal; Absent distension, Absent tender GENITOURINARY Genitourinary: Present exam deferred SKIN Skin: Present warm, Present dry MUSCULOSKELETAL Musculoskeletal: Present ROM normal NEUROLOGICAL Neurological: Present alert, Present oriented x 3, Present no gross motor or se nsory deficits PSYCHOLOGICAL Psychological: Present mood/affect normal, Present judgement normal Results Laboratory Lab results reviewed: Yes Assessment & Plan Medical Decision Making MDM 39-year-old male past medical history significant for nausea and vomiting for 3 weeks, cannabis and cocaine abuse who presents to emergency department for nausea and vomiting. Symptoms ongoing for 3 weeks. He has been trialed on Compazine. He has only been able to take his medications very sparingly. Exam shows distressed nauseated male. No focal abd tenderness. Has had CT which was unremarkable. Labs WNL. Feels much better after Haldol 5mg IM. Offered transfer to OSH as we have no beds at [facility] to which patient declines. He would prefer to be discharged home with Haldol. Will DC home and he will f/u w/ Dr. Hays in GI clinic on . Patient states agreement to plan and is appropriate for discharge. He will discontinue his other medications he was given for this, ensure he takes his HAART therapy and take haldol as needed. Reassessment Reassessment time: 08:11 Reassessment Well appearing, NAD Assessment & Plan Final Impression: (1) Nausea & vomiting (2) Cannabinoid hyperemesis syndrome Depart Disposition: HOME, SELF-CARE Last Vital Signs Date Time Temp Pulse Resp B/P (MAP) Pulse Ox O2 Delivery O2 Flow Rate FiO2 12/26/19 06:07 98.6 83 20 162/104 100 Room Air Home Meds Active Scripts Haloperidol (HALOPERIDOL) 1 Mg Tablet, 2 MG PO DAILY PRN for NAUSEA MDD 2 mg, #20 TAB Prov:NITIN DUBON MD 12/26/19 Pantoprazole Sodium* (PROTONIX) 40 Mg Tablet.dr, 40 MG PO DAILY, #14 TAB Prov:GEOVANI MONROY, 12/14/19 Dicyclomine Hcl (BENTYL) 10 Mg/1 Ml Ampul, 20 MG PO QID, #20 VIAL Prov:GEOVANI MONROY, DO 12/14/19 Reported Medications Dicyclomine Hcl (BENTYL) 10 Mg/1 Ml Ampul, 20 MG IV QID, VIAL 04/04/19 Metronidazole (FLAGYL) 500 Mg Tablet, 500 MG PO Q6H 04/04/19 Acetaminophen/Codeine* (TYLENOL # 3*) 1 Ea Tab, PO PRN PRN for ABDOMINAL PAIN 04/04/19 Clindamycin Hcl (CLINDAMYCIN HCL) 300 Mg Capsule, 300 MG PO Q6H 04/04/19 Hydrochlorothiazide (HYDROCHLOROTHIAZIDE) 25 Mg Tablet, 12.5 MG PO DAILY, #30 TAB 03/14/19 Discontinued Scripts Ondansetron Hcl* (ZOFRAN*) 4 Mg Tablet, 4 MG SL Q6H PRN for NAUSEA, #14 MG 0 Refills Prov:GEOVANI MONROY, 12/14/19 Medications in the ED Sodium Chloride 1,000 ml @ 100 mls/hr Q10H IV ; Start 12/26/19 at 06:30; Stop 01/25/20 at 06:29; Status UNV Haloperidol Lactate 5 mg ONCE ONCE IM ; Start 12/26/19 at 06:30; Stop 12/26/19 at 06:31; Status UNV NITIN DUBON MD Dec 26, 2019 06:33
--- OUTSIDE RECORDS SUMMARY | 2019-12-26 06:38 | XMS REPORT | Clinical Summary ---
Author Author [facility] Organization [facility] Address Unknown Phone Unavailable Care Team Providers Care Immigration Manager Name Role Phone PCP Unavailable Allergies [...] appt Self No E scobedo-Lucy management is, Krya Wei RN Results Not on fileafter 12/25/2018 Insurance Type Payer Benefit Subscriber ID Effective Phone Address Plan / Dates Group [place] [employer] [id number] SSI xxxxxxxxx 2017-P [phone] [id number] [place] [address] [facility] SELF-PAY SELF-PAY xxxxxxxxx 2018-P [phone] [id number] [place] [address] Vimal Kim Personal/F Self [address] amily (Home) [place] [address] Advance Directives Date Inactivated Comments Code Status Date Activated 11/12/2011 4:39 PM Full Code 11/11/2011 4:04 AM
--- OUTSIDE RECORDS SUMMARY | 2019-12-26 06:39 | XMS REPORT | Continuity of Care Document ---
Author Author [facility] t Organization [facility] Address [address] [place] [address] Phone Unavailable Care Team Providers Care Business Systems Technician Name Role Phone NONSTAFF PCP Unavailable WESLY SPICER Attphys Unavailable Brown MONROY Attphys Unavailable Sergio MONTGOMERY Attphys Unavailable PAULINE DAMON Attphys Unavailable Payers Payer Name Policy Type Policy Number Effective Date Expiration Date [place] Isid[place] Medicaid [id number] 2017 00:00:00 2020 00:00:00 [facility] Problems Condition Name Condition Details Condition Category Status Onset Date Resolution Date Last Treatment Date Treating Clinician Comments Source LBP (low back pain) LBP (low back pain) Disease Active 2014-05-11 00:00 :00 [facility] Homeless Homeless Disease Active 2012-01-12 00:00:00 [facility] Polysubstance (excluding opioids) dependence Polysubst ance (excluding opioids) dependence Disease Active 2011-12-15 00:00:00 [facility] AIDS AIDS Disease Active 2011-09-03 00:00:00 [facility] Major depression, recurrent Major depression, recurrent Disease Active 2010-12-15 00:00:00 [facility] ealt Irritable bowel syndrome Problem Active [facility] Cocaine abuse Problem Active [facility] Cannabinoid hyperemesis syndrome Problem Active [facility] Intractable vomiting with nausea Problem Active [facility] Abdominal pain Abdominal pain Disease Active [facility] Allergies, Adverse Reactions, Alerts Allergy Name Allergy Type Status Severity Reaction(s) Onset Date Inacti ve Date Treating Clinician Comments Source No Known Allergies DA Active U 2019-02-28 00:00:00 [facility] Aspirin Propensity to adverse reactions to drug Active 2018-01-06 00:00:00 [facility] ASPIRIN DA Active U 2005-10-16 00:00:00 [facility] No Known Contrast Allergies DA Active U 2005-10-16 00:00: 00 [facility] No Known Food Allergies DA Active U 2005-10-16 00:00:00 [facility] No Known Other Allergies DA Active U 2005-10-16 00:00:00 [facility] Family History Family Member Diagnosis Comments Start Date Stop Date Source Natural brother Diabetes [facility] alth Natural father Lipids [facility] Natural father Unknown Fam Hx [facility] Natural mother Alcohol/Drug [facility] Natural mother Diabetes [facility] Natural mother Hypertension [facility] Natural sister Seizures [facility] Social History Social Habit Start Date Stop Date Quantity Comments Source History of tobacco use Cigarette Smoker [facility] Sex Assigned At [facility] Cigarettes smoked current (pack per day) - Reported 00:00:00 2018-10-05 00:00:00 [facility] Cigarette pack-years 2018-10-05 00:00:00 2018-10-05 00:00:00 [facility] Alcohol intake 2018-10-05 00:00:00 2018-10-05 00:00:00 Current non-drinker of alcohol (finding) [facility] SDOH Food Worry 2016-09-22 00:00:00 2016-09-22 00:00:[address] [facility] Food Scarcity 2016-09-22 00:00:00 2016-09-22 00:00:00 1 [facility] Smoking Status Start Date Stop Date Source Current every day smoker 2018-10-05 00:00:00 [facility] Medications Ordered Medication Name Filled Medication Name Start Date Stop Da te Current Medication? Ordering Clinician Indication Dosage Frequency Signature (SIG) Comments Components Source Prochlorperazine (Compazine) 25 Mg SUPP.RECT Prochlorp erazine (Compazine) 25 Mg SUPP.RECT 2019-12-15 23:24:00 Yes 10 Daily [facility] Dicyclomine Hcl (Bentyl) 10 Mg/1 Ml AMPUL Dicyclomine Hcl (Bentyl) 10 Mg/1 Ml AMPUL 2019-12-14 10:35:00 Yes 20 Four Times Daily [facility] Ondansetron Hcl (Zofran*) 4 Mg TABLET Ondansetron Hcl (Zofra n*) 4 Mg TABLET 2019-12-14 10:35:00 Yes 4 Every 6 Hours as n eeded for Nausea [facility] Pantoprazole Sodium (Protonix) 40 Mg TABLET. Pantopr azole Sodium (Protonix) 40 Mg TABLET. 2019-12-14 10:35:00 Yes 40 Daily [facility] ibuprofen (MOTRIN) 400 mg tablet 2018-01-06 00:00:00 Yes Abdominal pain, unspecified abdominal location 400mg Take 1 ta blet by mouth every 8 hours as needed for Pain. [facility] sulfamethoxazole-trimethoprim (BACTRIM DS) 800-160 mg per ta blet 2017-02-19 00:00:00 Yes AIDS 1{tbl} Take 1 tablet by mouth 3 time s weekly. [facility] darunavir (PREZISTA) 800 mg Tab tablet 2017-02-18 00:00:00 Yes AIDS 800mg QD Take 1 tablet by mouth daily. [facility] RITONavir (NORVIR) 100 mg Tab 2017-02-18 00:00:00 Yes AIDS 100mg QD Take 1 tablet by mouth daily. [facility] emtricitabine-tenofovir alafen (DESCOVY) 200-25 mg tablet 2017-02-18 00:00:00 Yes AIDS 1{tbl} QD Take 1 tablet by mouth daily. [facility] BOOST VHC 0.09-2.25 gram-kcal/mL oral liquid 2017-02-18 00:00:00 Yes AIDS 1{package} Take 1 Package by mouth 3 times daily. [facility] Acetaminophen/Codeine Phosphate (Tylenol # 3*) 1 Ea TA B Acetaminophen/Codeine Phosphate (Tylenol # 3*) 1 Ea TAB Yes As Needed as needed for Abdominal Pain [facility] Clindamycin Hcl Clindamycin Hcl Yes 300 Every 6 Hours [facility] Dicyclomine Hcl (Bentyl) 10 Mg/1 Ml AMPUL Dicyclomine Hcl (Bentyl) 10 Mg/1 Ml AMPUL Yes 20 Four Times Daily [facility] Hydrochlorothiazide Hydrochlorothiazide Yes 12.5 Daily [facility] Metronidazole (Flagyl) 500 Mg TABLET Metronidazole (Flagyl) 500 Mg TABLET Yes 500 Every 6 Hours [facility] Immunizations Ordered Immunization Name Filled Immunization Name Date Status Comments Source Influenza <Unspecified> 2017-03-09 00:00:00 Completed [facility] PPD 2016-09-22 00:00:00 Completed [facility] Pneumococcal 13-valent conj 0.5 mL injection 2014-04-30 00 :00:00 Completed [facility] Influenza Vaccine 2014-01-30 00:00:00 Completed [facility] PPD 2014-01-02 00:00:00 Completed [facility] Influenza Vaccine 2012-02-09 00:00:00 Completed [facility] Hepatitis B Vaccine 2012-01-14 00:00:00 Completed [facility] PPV 23 Pneumococcal Polysaccaride 2011-12-17 00:00:00 Comp leted [facility] Hepatitis B Vaccine 2011-12-17 00:00:00 Completed [facility] PPD 2011-12-14 00:00:00 Completed [facility] PPD 2010-10-24 00:00:00 Completed [facility] Tdap Tetanus, diphtheria, acellular pertussis Vaccine 2009-10-31 00:00:00 Completed [facility] Vital Signs Vital Name Observation Time Observation Value Comments Source Weight 2019-12-24 13:41:00 120 [lb_av] [facility] BMI (Body Mass Index) 2019-12-24 13:41:00 13.5 kg/m2 [facility] Weight 2019-12-15 20:19:00 175 [lb_av] [facility] BMI (Body Mass Index) 2019-12-15 20:19:00 23.1 kg/m2 [facility] Weight 2019-12-14 07:55:00 210 [lb_av] [facility] BMI (Body Mass Index) 2019-12-14 07:55:00 37.2 kg/m2 [facility] Body Temperature 2019-04-04 12:48:00 97.9 [degF] [facility] Procedures Procedure Date / Time Performed Performing Clinician Ana Maria luis Computed tomography of abdomen and pelvis with contrast 00:00:00 [facility] Computed tomography of abdomen and pelvis with contrast 2018 00:00:00 BRANDO MONTGOMERY [facility] INSPECTION OF LOWER INTESTINAL TRACT, ENDO 2019-03-17 00:00:00 [facility] INSPECTION OF UPPER INTESTINAL TRACT, ENDO 2019-03-17 00:00:[address] [facility] [address] of abdomen and pelvis without contrast 2019-03-14 00:00:00 [facility] Computed tomography of abdomen and pelvis with contrast 2018 00:00:00 PAULINE DAMON [facility] Plan of Care Planned Activity Planned Date Details Comments Source Future Scheduled Test 2020-02-01 00:00:00 IMM Influenza Seas onal Jan to July (>/= 19 yrs) [code = IMM Influenza Seasonal Jan to July (>/= 19 yrs)] [facility] Instructions Abdominal Pain - Adult [facility] Encounters Start Date/Time End Date/Time Encounter Type Admission Type Attendi [facility] Care Department Encounter ID Source 2019-12-24 13:40:00 2019-12-24 17:46:00 Departed Emergency Room 1 SPICER WESLY [facility] [id number] [facility] 2019-12-15 20:45:00 2019-12-16 00:02:00 Departed Emergency Room [facility] [id number] [facility] [place] 2019-12-14 08:05:00 2019-12-14 11:10:00 Departed Emergency Room 1 GEOVANI MONROY [facility] [id number] [facility] 2019-04-04 07:55:00 2019-04-04 13:33:00 Departed Emergency Room 1 BRANDO MONTGOMERY [facility] [id number] [facility] 2019-03-26 16:20:00 2019-03-26 16:53:00 Departed Emergency Room [facility] [id number] [facility] 2019-03-15 11:39:00 2019-03-17 19:25:00 Discharged Inpatient 1 WESLY SPICER [facility] [id number] [facility] 2019-03-13 11:16:00 2019-03-13 16:09:00 Departed Emergency Room 1 PAULINE DAMON [facility] [id number] [facility] 2018-01-06 20:36:16 2018-01-06 20:36:16 Emergency [facility] [id number] [facility] 2016-09-16 15:48:00 2016-09-16 15:48:00 Emergency E [facility] [id number] [facility] Results Test Description Test Time Test Comments Results Result Comments Source CHEST SINGLE (PORTABLE) 2019-12-24 14:44:00 [facility] [address] [place] [address] Patient Name: QUYEN KIM MR #: [id number] : 1980 Age/Sex: 39/M Req #: [id number] Adm Physician: Ordered by: WESLY SPICER DO Report #: [id number] Location: ER Room/Bed: Procedure: [id number] DX/CHEST SINGLE (PORTABLE) Exam Date: 12/24/19 Exam Time: 1405 REPORT STATUS: Signed EXAMINATION: CHEST SINGLE (PORTABLE) INDICATION: Pain. Nausea and vomiting. COMPARISON: 04/04/2019. FINDINGS: TUBES and LINES: None. LUNGS: Lungs are well inflated. Lungs are clear. There is no evidence of pneumonia or pulmonary edema. PLEURA: No pleural effusion or pneumothorax. HEART AND MEDIASTINUM: The cardiomediastinal silhouette is unremarkable. BONES AND SOFT TISSUES: No acute osseous lesion. Soft tissues are unremarkable. UPPER ABDOMEN: No free air under the diaphragm. IMPRESSION: No acute thoracic abnormality. Signed by: Dr. Renetta Medel M.D. on 12/24/2019 2:46 PM Dictated By: ROXANN MEDEL MD, MD 1446 Transcribed By: JEANNE on 12/24/19 1446 COPY TO: WESLY SPICER DO Fluoroscopic procedure less than one hour duration 2019-12-03 3 14:04:00 Test Item Coronavirus (PCR) (test code = Coronavirus (PCR)) NOT DETECTED NOTD ETECTED SARS-COV2/RT-PCR CEPHEIDResults are for the detection of SARS-COV-2 RNA. The JESSY S-COV-2 RNA is generally detectable in nasopharyngeal swab specimens during the acute phase of infection. Positive results are indicitive of active infection wi SARS-COV-2; clinical correlation with patient history and other diagnostic in formation is necessary to determine patient infection status. Positive results d o not rule out bacterial infection or co-infection with other viruses. The agent detected may not be the definite cause of the disease.The limit of detection for this assay is 250 copies/mLThe SARS-CoV-2 test is a rapid, real-time RT-PCR test intended for the qualitative detection of nucleic acid from SARS-CoV-2 in thom opharyngeal swab specimen collected from individuals suspected of COVID-19 by eir healthcare provider. This test has not been Food and Drug Administration (FD A) cleared or approved and has been authorized by FDA under an Emergency Use Aut horization (EUA). This EUA will be effective until the declaration that circumst ances exist justifying the authorization of the emergency use of in vitro diagno stic test for detection and or diagnosis of COVID-19 is terminated under section 564(b) of the Act, or the the EUA is revoked under 564(g) of the ACT.[facility] leukocytes automated count (number/volume) 2019-12-24 13:46:00* Test Item Value Reference Range Interpretation Comments White Blood Count (test code = 6690-2) 6.04 4.8-10.8 [facility] erythrocytes automated count (number/volume)2019-12-24 13:46:00* Test Item Value Reference Range Interpretation Comments Red Blood Count (test code = 789-8) 4.80 4.3-5.7 [facility] hemoglobin measurement (moles/volume)2019-12-24 13:46:00* Test Item Value Reference Range Interpretation Comments Hemoglobin (test code = 75720-7) 15.6 14.0-18.0 [facility] Center[facility] blood hematocrit (volume fraction)2019-12-24 13:46:00* Test Item Value Reference Range Interpretation Comments Hematocrit (test code = 4544-3) 44.5 38.2-49.6 [facility] Center[facility] erythrocyte mean corpuscular [id number] 13:46:00* Test Item Value Reference Range Interpretation Comments Mean Corpuscular Volume (test code = 787-2) 92.7 81-99 [facility] Center[facility] erythrocyte mean corpuscular hemoglobin (mass per erythrocyte)2019-12-24 13:46:00* Test Item Value Reference Range Interpretation Comments Mean Corpuscular Hemoglobin (test code = 785-6) 32.5 28-32 [facility] Center[facility] erythrocyte mean corpuscular hemoglobin concentration measurement (mass/volume)2019-12-24 13:46:00* Test Item Value Reference Range Interpretation Comments Mean Corpuscular Hemoglobin Concent (test code = 786-4) 35.1 31-35 [facility] CenterRDW ExeHs-[id number] 13:46:00* Test Item Value Reference Range Interpretation Comments Red Cell Distribution Width (test code = 21338-4) 11.5 11.7 -14.4 [facility] CenterAutom[facility] blood platelet count (count/volume)2019-12-24 13:46:00* Test Item Value Reference Range Interpretation Comments Platelet Count (test code = 777-3) 262 140-360 [facility] CenterAutom[facility] blood segmented neutrophil count as percentage of total iecultleax7885-47-69 13:46:00* Test Item Value Reference Range Interpretation Comments Neutrophils (%) (Auto) (test code = 30633-2) 64.1 38.7-80.0 [facility] CenterAutf[facility] alex[facility] campused blood lymphocyte count as percentage ot total iyvqbftibn5133-44-53 13:46:00* Test Item Value Reference Range Interpretation Comments Lymphocytes (%) (Auto) (test code = 736-9) 29.1 18.0-39.1 [facility] CenterAutom[facility] blood monocyte count as percentage of total vrojxkqnar5258-72-93 13:46:00* Test Item Value Reference Range Interpretation Comments Monocytes (%) (Auto) (test code = 5905-5) 6.1 4.4-11.3 [facility] CenterAut[facility] alex[facility] campused blood eosinophil count as percentage of total zmqfihrgsr6601-40-35 13:46:00* Test Item Value Reference Range Interpretation Comments Eosinophils (%) (Auto) (test code = 713-8) 0.2 0.0-6.0 [facility] CenterAutom[facility] blood basophil count as percentage of total xjlwumhhzp9770-01-44 13:46:00* Test Item Value Reference Range Interpretation Comments Basophils (%) (Auto) (test code = 706-2) 0.3 0.0-1.0 [facility] CenterFluoroscopic procedure less than one hour [id number] 13:46:00* Test Item Value Reference Range Interpretation Comments IM GRANULOCYTES % (test code = IM GRANULOCYTES %) 0.2 0.0- 1.0 [facility] CenterAutom[facility] blood neutrophil count 2019-12-24 13:46:00* Test Item Value Reference Range Interpretation Comments Neutrophils # (Auto) (test code = 751-8) 3.9 2.1-6.9 [facility] Center[facility] lymphocytes count (number/volume) 2019-12-24 13:46:00* Test Item Value Reference Range Interpretation Comments Lymphocytes # (Auto) (test code = 18105-0) 1.8 1.0-3.2 [facility] CenterBlood monocytes automated count (number/volume)2019-12-24 13:46:00* Test Item Value Reference Range Interpretation Comments Monocytes # (Auto) (test code = 742-7) 0.4 0.2-0.8 [facility] CenterAutom[facility] blood eosinophil count 2019-12-24 13:46:00* Test Item Value Reference Range Interpretation Comments Eosinophils # (Auto) (test code = 711-2) 0.0 0.0-0.4 [facility] CenterAutomated blood basophil count (count/volume)2019-12-24 13:46:00* Test Item Value Reference Range Interpretation Comments Basophils # (Auto) (test code = 704-7) 0.0 0.0-0.1 [facility] CenterFluoroscopic procedure less than one hour gjwvbojp3626-77-73 13:46:00* Test Item Value Reference Range Interpretation Comments Absolute Immature Granulocyte (auto (jourdan t code = Absolute Immature Granulocyte (auto) 0.01 0-0.1 [facility] CenterUrine opiates screening [id number] 13:46:00* Test Item Value Reference Range Interpretation Comments Urine Opiates Screen (test code = 86993-2) POSITIVE NEGATIVE This test provides only a screen. Positive results should be repeated by a confi rmatory test.[facility] CenterBarbiturates screen, urine 2019-12-24 13:46:00* Test Item Value Reference Range Interpretation Comments Urine Barbiturates Screen (test code = 566622360) NEGATIVE NEGA TIVE [facility] CenterUrine phencyclidine detection by screening [id number] 13:46:00* Test Item Value Reference Range Interpretation Comments Urine Phencyclidine Screen (test code = 94863-7) NEGATIVE NEGAT ANGY [facility] CenterUrine amphetamines detection by screen method > 1000 ng/nU3265-62-17 13:46:00* Test Item Value Reference Range Interpretation Comments Urine Amphetamines Screen (test code = 49387-3) NEGATIVE NEGATI VE [facility] CenterFluoroscopic procedure less than one hour [id number] 13:46:00* Test Item Value Reference Range Interpretation Comments Urine Methamphetamines Screen (test code = Urine Metha mphetamines Screen) NEGATIVE NEGATIVE [facility] CenterUrine benzodiazepines detection by screening bvgkya8609-78-07 13:46:00* Test Item Value Reference Range Interpretation Comments Urine Benzodiazepines Screen (test code = 82738-5) NEGATIVE NEG ATIVE [facility] CenterUrine cocaine measurement (mass/volume) 2019-12-24 13:46:00* Test Item Value Reference Range Interpretation Comments Urine Cocaine Screen (test code = 3398-5) NEGATIVE NEGATIVE [facility] CenterUrine cannabinoids detection by screening iwjtmy8470-20-77 13:46:00* Test Item Value Reference Range Interpretation Comments Urine Cannabinoids Screen (test code = 55105-0) POSITIVE NEGATI VE This test provides only a screen. Positive results should be repeated by a confi rmatory test.[facility] CenterUrine methadone screen 2019-12-24 13:46:00* Test Item Value Reference Range Interpretation Comments Urine Methadone Screen (test code = 12168-1) NEGATIVE NEGATIVE THESE RESULTS ARE FOR MEDICAL TREATMENT ONLYTHIS REPORT CONTAINS UNCONFIR MED SCREENING RESULTS*POSITIVE RESULTS WILL BE CONFIRMED BY REFERENCE LAB UPON R EQUEST CUT-OFFDRUG CLASS CONCENTRATION ng/mLAmphetamines 1000Methamphetamines 1000Cocaine Metabolite 300Opiate 300Phencyc lidine 25Cannabinoid 50Barbiturates 300Benzodiazepine 300Methadone 300[facility] or plasma lipase measurement (enzymatic activity/volume)2019-12-24 13:46:00* Test Item Value Reference Range Interpretation Comments Lipase (test code = 3040-3) 51 8-78 [facility]isco[facility]um or plasma sodium measurement (moles/volume)2019-12-24 13:36:00* Test Item Value Reference Range Interpretation Comments Sodium Level (test code = 2951-2) 142 136-145 [facility] Friscoerum or plasma potassium measurement (moles/volume)2019-12-24 13:36:00* Test Item Value Reference Range Interpretation Comments Potassium Level (test code = 2823-3) 3.3 3.5-5.1 [facility]isco[facility]um or plasma chloride measurement (moles/volume)2019-12-24 13:36:00* Test Item Value Reference Range Interpretation Comments Chloride Level (test code = 2075-0) 105 98-107 [facility]iscoerum or plasma carbon dioxide, total measurement (moles/volume)2019-12-24 13:36:00* Test Item Value Reference Range Interpretation Comments Carbon Dioxide Level (test code = 2028-9) 18 22-29 [facility]iscoerum or plasma anion [id number] 13:36:00* Test Item Value Reference Range Interpretation Comments Anion Gap (test code = 28294-8) 22.3 8-16 [facility]isco[facility]um or plasma urea nitrogen measurement (mass/volume)2019-12-24 13:36:00* Test Item Value Reference Range Interpretation Comments Blood Urea Nitrogen (test code = 3094-0) 8 7-26 [facility]isco[facility]um or plasma creatinine measurement (mass/volume)2019-12-24 13:36:00* Test Item Value Reference Range Interpretation Comments Creatinine (test code = 2160-0) 1.99 0.72-1.25 [facility]isco[facility]um or plasma urea nitrogen/creatinine mass [id number] 13:36:00* Test Item Value Reference Range Interpretation Comments BUN/Creatinine Ratio (test code = 3097-3) 4 6-25 [facility] CenterEstimated glomerular filtration rate (GFR) wvwsawqfvepfl8752-80-20 13:36:00* Test Item Value Reference Range Interpretation Comments Estimat Glomerular Filtration Rate (test code = 420122834) 45 >60 Ranges were taken from the National Kidney Disease Education Program and the [facility] [employer] literature.Reference ranges:60 or greater: Mxbonv40-96 ( for 3 consecutive months): Chronic kidney disease 15 or less: Kidney failureTitus Regional Medical CenterGlucose xpcbzzijhly3286-07-36 13:36:00* Test Item Value Reference Range Interpretation Comments Glucose Level (test code = MEE3742) 125 74-118 [facility]isco[facility]um or plasma calcium measurement (mass/volume)2019-12-24 13:36:00* Test Item Value Reference Range Interpretation Comments Calcium Level (test code = 70140-5) 10.8 8.4-10.2 [facility]isco[facility]um or plasma total bilirubin measurement (mass/volume)2019-12-24 13:36:00* Test Item Value Reference Range Interpretation Comments Total Bilirubin (test code = 1975-2) 0.7 0.2-1.2 [facility] CenterFluoroscopic procedure less than one hour [id number] 13:36:00* Test Item Value Reference Range Interpretation Comments Aspartate Amino Transf (AST/SGOT) (test code = Aspartate Amino Transf (AST/SGOT)) 18 5-34 [facility]isco[facility]um or plasma alanine aminotransferase measurement (enzymatic activity/volume)2019-12-24 13:36:00* Test Item Value Reference Range Interpretation Comments Alanine Aminotransferase (ALT/SGPT) (test code = 1742-6) 15 0-55 [facility]isco[facility]um or plasma protein measurement (mass/volume)2019-12-24 13:36:00* Test Item Value Reference Range Interpretation Comments Total Protein (test code = 2885-2) 9.4 6.5-8.1 [facility] plasma albumin measurement (mass/volume)2019-12-24 13:36:00* Test Item Value Reference Range Interpretation Comments Albumin (test code = 1751-7) 5.1 3.5-5.0 [facility] CenterPlasma globulin measurement (mass/volume) 2019-12-24 13:36:00* Test Item Value Reference Range Interpretation Comments Globulin (test code = 95779-0) 4.3 2.3-3.5 [facility] or plasma albumin/globulin mass xoklz7321-17-61 13:36:00* Test Item Value Reference Range Interpretation Comments Albumin/Globulin Ratio (test code = 1759-0) 1.2 0.8-2.0 [facility] plasma alkaline phosphatase measurement (enzymatic activity/volume)2019-12-24 13:36:00* Test Item Value Reference Range Interpretation Comments Alkaline Phosphatase (test code = 6768-6) 93 40-150 [facility] CenterBlood leukocytes automated count (number/volume)2019-12-15 20:40:00* Test Item Value Reference Range Interpretation Comments White Blood Count (test code = 6690-2) 7.38 4.8-10.8 [facility] CenterBlood erythrocytes automated count (number/volume)2019-12-15 20:40:00* Test Item Value Reference Range Interpretation Comments Red Blood Count (test code = 789-8) 4.22 4.3-5.7 [facility] CenterBlood hemoglobin measurement (moles/volume)2019-12-15 20:40:00* Test Item Value Reference Range Interpretation Comments Hemoglobin (test code = 35829-6) 13.8 14.0-18.0 [facility] CenterAutomated blood hematocrit (volume fraction)2019-12-15 20:40:00* Test Item Value Reference Range Interpretation Comments Hematocrit (test code = 4544-3) 41.0 38.2-49.6 [facility] CenterAutomated erythrocyte mean corpuscular jbeqpf9326-62-93 20:40:00* Test Item Value Reference Range Interpretation Comments Mean Corpuscular Volume (test code = 787-2) 97.2 81-99 [facility] CenterAutomated erythrocyte mean corpuscular hemoglobin (mass per erythrocyte)2019-12-15 20:40:00* Test Item Value Reference Range Interpretation Comments Mean Corpuscular Hemoglobin (test code = 785-6) 32.7 28-32 [facility] CenterAutomated erythrocyte mean corpuscular hemoglobin concentration measurement (mass/volume)2019-12-15 20:40:00* Test Item Value Reference Range Interpretation Comments Mean Corpuscular Hemoglobin Concent (test code = 786-4) 33.7 31-35 [facility] CenterRDW NklQh-Qux0840-80-14 20:40:00* Test Item Value Reference Range Interpretation Comments Red Cell Distribution Width (test code = 00290-2) 11.9 11.7 -14.4 [facility] CenterAutomated blood platelet count (count/volume)2019-12-15 20:40:00* Test Item Value Reference Range Interpretation Comments Platelet Count (test code = 777-3) 242 140-360 [facility] CenterAutomated blood segmented neutrophil count as percentage of total vwjxcixbdq5344-80-01 20:40:00* Test Item Value Reference Range Interpretation Comments Neutrophils (%) (Auto) (test code = 04124-8) 75.8 38.7-80.0 [facility] blood lymphocyte count as percentage ot total fwfjrlpbax6970-79-37 20:40:00* Test Item Value Reference Range Interpretation Comments Lymphocytes (%) (Auto) (test code = 736-9) 19.8 18.0-39.1 [facility] CenterAutomated blood monocyte count as percentage of total tmkgktrbpn6698-62-19 20:40:00* Test Item Value Reference Range Interpretation Comments Monocytes (%) (Auto) (test code = 5905-5) 3.9 4.4-11.3 [facility] CenterAutfrye [facility] campused blood eosinophil count as percentage of total duonqrynqi5738-62-16 20:40:00* Test Item Value Reference Range Interpretation Comments Eosinophils (%) (Auto) (test code = 713-8) 0.0 0.0-6.0 [facility] CenterAutomated blood basophil count as percentage of total wvxrtrezxj0793-03-96 20:40:00* Test Item Value Reference Range Interpretation Comments Basophils (%) (Auto) (test code = 706-2) 0.4 0.0-1.0 [facility] CenterFluoroscopic procedure less than one hour orduaiss2974-00-42 20:40:00* Test Item Value Reference Range Interpretation Comments IM GRANULOCYTES % (test code = IM GRANULOCYTES %) 0.1 0.0- 1.0 [facility] CenterAutomated blood neutrophil count 2019-12-15 20:40:00* Test Item Value Reference Range Interpretation Comments Neutrophils # (Auto) (test code = 751-8) 5.6 2.1-6.9 [facility] CenterBlood lymphocytes count (number/volume) 2019-12-15 20:40:00* Test Item Value Reference Range Interpretation Comments Lymphocytes # (Auto) (test code = 59567-3) 1.5 1.0-3.2 [facility] CenterBlood monocytes automated count (number/volume)2019-12-15 20:40:00* Test Item Value Reference Range Interpretation Comments Monocytes # (Auto) (test code = 742-7) 0.3 0.2-0.8 [facility] CenterAutomated blood eosinophil count 2019-12-15 20:40:00* Test Item Value Reference Range Interpretation Comments Eosinophils # (Auto) (test code = 711-2) 0.0 0.0-0.4 [facility] CenterAutomated blood basophil count (count/volume)2019-12-15 20:40:00* Test Item Value Reference Range Interpretation Comments Basophils # (Auto) (test code = 704-7) 0.0 0.0-0.1 [facility] CenterFluoroscopic procedure less than one hour ybnzpvwq2087-99-91 20:40:00* Test Item Value Reference Range Interpretation Comments Absolute Immature Granulocyte (auto (jourdan t code = Absolute Immature Granulocyte (auto) 0.01 0-0.1 [facility] plasma sodium measurement (moles/volume)2019-12-15 20:40:00* Test Item Value Reference Range Interpretation Comments Sodium Level (test code = 2951-2) 142 136-145 [facility]iscoerum or plasma potassium measurement (moles/volume)2019-12-15 20:40:00* Test Item Value Reference Range Interpretation Comments Potassium Level (test code = 2823-3) 3.6 3.5-5.1 [facility]iscoerum or plasma chloride measurement (moles/volume)2019-12-15 20:40:00* Test Item Value Reference Range Interpretation Comments Chloride Level (test code = 2075-0) 108 98-107 [facility]iscoerum or plasma carbon dioxide, total measurement (moles/volume)2019-12-15 20:40:00* Test Item Value Reference Range Interpretation Comments Carbon Dioxide Level (test code = 2028-9) 20 -29 [facility]iscoerum or plasma anion hih9246-91-21 20:40:00* Test Item Value Reference Range Interpretation Comments Anion Gap (test code = 35181-2) 17.6 8-16 [facility]iscoerum or plasma urea nitrogen measurement (mass/volume)2019-12-15 20:40:00* Test Item Value Reference Range Interpretation Comments Blood Urea Nitrogen (test code = 3094-0) 14 7-26 [facility]iscoerum or plasma creatinine measurement (mass/volume)2019-12-15 20:40:00* Test Item Value Reference Range Interpretation Comments Creatinine (test code = 2160-0) 1.55 0.72-1.25 [facility]iscoerum or plasma urea nitrogen/creatinine mass mchom7298-95-12 20:40:00* Test Item Value Reference Range Interpretation Comments BUN/Creatinine Ratio (test code = 3097-3) 9 6- [facility] CenterEstimated glomerular filtration rate (GFR) zyhertddlivtg1047-58-23 20:40:00* Test Item Value Reference Range Interpretation Comments Estimat Glomerular Filtration Rate (test code = 329226178) 60 >60 Ranges were taken from the National Kidney Disease Education Program and the [facility] literature.Reference ranges:60 or greater: Tvkflh76-49 ( for 3 consecutive months): Chronic kidney disease 15 or less: Kidney failureTitus Regional Medical CenterGlucose cdkjxmznuvm4832-71-83 20:40:00* Test Item Value Reference Range Interpretation Comments Glucose Level (test code = HVK6335) 123 74-118 [facility]iscoerum or plasma calcium measurement (mass/volume)2019-12-15 20:40:00* Test Item Value Reference Range Interpretation Comments Calcium Level (test code = 56662-9) 10.0 8.4-10.2 [facility]iscoerum or plasma total bilirubin measurement (mass/volume)2019-12-15 20:40:00* Test Item Value Reference Range Interpretation Comments Total Bilirubin (test code = 1975-2) 0.9 0.2-1.2 [facility] CenterFluoroscopic procedure less than one hour xffvmfsr9383-58-20 20:40:00* Test Item Value Reference Range Interpretation Comments Aspartate Amino Transf (AST/SGOT) (test code = Aspartate Amino Transf (AST/SGOT)) 18 5-34 [facility]iscoerum or plasma alanine aminotransferase measurement (enzymatic activity/volume)2019-12-15 20:40:00* Test Item Value Reference Range Interpretation Comments Alanine Aminotransferase (ALT/SGPT) (test code = 1742-6) 18 0-55 [facility]um or plasma protein measurement (mass/volume)2019-12-15 20:40:00* Test Item Value Reference Range Interpretation Comments Total Protein (test code = 2885-2) 8.8 6.5-8.1 [facility]um or plasma albumin measurement (mass/volume)2019-12-15 20:40:00* Test Item Value Reference Range Interpretation Comments Albumin (test code = 1751-7) 4.8 3.5-5.0 [facility] CenterPlasma globulin measurement (mass/volume) 2019-12-15 20:40:00* Test Item Value Reference Range Interpretation Comments Globulin (test code = 08086-7) 4.0 2.3-3.5 [facility]um or plasma albumin/globulin mass nrdnz2753-34-25 20:40:00* Test Item Value Reference Range Interpretation Comments Albumin/Globulin Ratio (test code = 1759-0) 1.2 0.8-2.0 [facility]um or plasma alkaline phosphatase measurement (enzymatic activity/volume)2019-12-15 20:40:00* Test Item Value Reference Range Interpretation Comments Alkaline Phosphatase (test code = 6768-6) 89 40-150 [facility]erum or plasma lipase measurement (enzymatic activity/volume)2019-12-15 20:40:00* Test Item Value Reference Range Interpretation Comments Lipase (test code = 3040-3) 15 8-78 [facility] CenterCT ABDOMEN[facility]PELVIS [id number] 10:01:00 [facility] [address] [address] Patient Name: QUYEN KIM MR #: [id number] : 1980 Age/Sex: 39/M Req #: [id number] Adm Physician: Ordered by: GEOVANI MONROY DO Report #: [id number] Location: ER Room/Bed: Procedure: [id number] CT/CT ABDOMEN /PELVIS W Exam Date: 12/14/19 Exam Time: 937 [...] PY TO: GEOVANI MONROY DO Urine color ekjaxywnwtwes0566-70-44 09:35:00* Test Item Value Reference Range Interpretation Comments Urine Color (test code = 5778-6) ORANGE YELLOW [facility] CenterUrine xpemdcz7139-02-63 09:35:00* Test Item Value Reference Range Interpretation Comments Urine Clarity (test code = 59695-2) SL CLOUDY CLEAR [facility]iscopecific gravity of Urine by Test strip 2019-12-14 09:35:00* Test Item Value Reference Range Interpretation Comments Urine Specific [place] (test code = 5811-5) >=1.030 1.010-1.02 5 [facility] CenterUrine pH measurement by automated test fyoic0849-67-29 09:35:00* Test Item Value Reference Range Interpretation Comments Urine pH (test code = 15203-0) 6 5-7 [facility] CenterUrine leukocyte esterase detection by ygnmgcja5912-37-51 09:35:00* Test Item Value Reference Range Interpretation Comments Urine Leukocyte Esterase (test code = 5799-2) NEGATIVE NEGATIVE [facility] CenterUrine nitrite kwgzeumyg5342-84-10 09:35:00* Test Item Value Reference Range Interpretation Comments Urine Nitrite (test code = 38314-9) NEGATIVE NEGATIVE [facility] CenterUrine protein measurement by test strip (mass/volume)2019-12-14 09:35:00* Test Item Value Reference Range Interpretation Comments Urine Protein (test code = 5804-0) 2+ NEGATIVE [facility] CenterUrine glucose mejxjgukc4237-08-64 09:35:00* Test Item Value Reference Range Interpretation Comments Urine Glucose (UA) (test code = 2349-9) NEGATIVE NEGATIVE [facility] CenterUrine ketones detection by automated test yboev1497-81-59 09:35:00* Test Item Value Reference Range Interpretation Comments Urine Ketones (test code = 44020-4) 2+ NEGATIVE [facility] CenterUrine opiates screening lmdx5368-39-20 09:35:00* Test Item Value Reference Range Interpretation Comments Urine Opiates Screen (test code = 65765-1) POSITIVE NEGATIVE This test provides only a screen. Positive results should be repeated by a confi rmatory test.[facility] CenterBarbiturates screen, urine 2019-12-14 09:35:00* Test Item Value Reference Range Interpretation Comments Urine Barbiturates Screen (test code = 270693054) NEGATIVE NEGA TIVE [facility] CenterUrine phencyclidine detection by screening xfslug2633-35-88 09:35:00* Test Item Value Reference Range Interpretation Comments Urine Phencyclidine Screen (test code = 32873-3) NEGATIVE NEGAT ANGY [facility] CenterUrine amphetamines detection by screen method > 1000 ng/fG3559-32-91 09:35:00* Test Item Value Reference Range Interpretation Comments Urine Amphetamines Screen (test code = 21649-7) NEGATIVE NEGATI VE [facility] CenterFluoroscopic procedure less than one hour opwhetlv9103-08-33 09:35:00* Test Item Value Reference Range Interpretation Comments Urine Methamphetamines Screen (test code = Urine Metha mphetamines Screen) NEGATIVE NEGATIVE [facility] CenterUrine benzodiazepines detection by screening ecmccw7473-79-91 09:35:00* Test Item Value Reference Range Interpretation Comments Urine Benzodiazepines Screen (test code = 46758-4) NEGATIVE NEG ATIVE [facility] CenterUrine cocaine measurement (mass/volume) 2019-12-14 09:35:00* Test Item Value Reference Range Interpretation Comments Urine Cocaine Screen (test code = 3398-5) POSITIVE NEGATIVE This test provides only a screen. Positive results should be repeated by a confi rmatory test.[facility] CenterUrine cannabinoids detection by screening zywwht0511-82-92 09:35:00* Test Item Value Reference Range Interpretation Comments Urine Cannabinoids Screen (test code = 31483-8) POSITIVE NEGATI VE This test provides only a screen. Positive results should be repeated by a confi rmatory test.[facility] CenterUrine methadone screen 2019-12-14 09:35:00* Test Item Value Reference Range Interpretation Comments Urine Methadone Screen (test code = 94707-6) NEGATIVE NEGATIVE THESE RESULTS ARE FOR MEDICAL TREATMENT ONLYTHIS REPORT CONTAINS UNCONFIR MED SCREENING RESULTS*POSITIVE RESULTS WILL BE CONFIRMED BY REFERENCE LAB UPON R EQUEST CUT-OFFDRUG CLASS CONCENTRATION ng/mLAmphetamines 1000Methamphetamines 1000Cocaine Metabolite 300Opiate 300Phencyc lidine 25Cannabinoid 50Barbiturates 300Benzodiazepine 300Methadone 300[facility] urob[facility]ogen [facility] by test strip (mass/volume)2019-12-14 09:35:00* Test Item Value Reference Range Interpretation Comments Urine Urobilinogen (test code = 43476-5) 0.2 0.2-1 [facility] CenterUrine total bilirubin measurement (mass/volume)2019-12-14 09:35:00* Test Item Value Reference Range Interpretation Comments Urine Bilirubin (test code = 1978-6) SMALL NEGATIVE [facility] CenterUrine erythrocytes phemvmwim3169-36-24 09:35:00* Test Item Value Reference Range Interpretation Comments Urine Blood (test code = 27395-1) MODERATE NEGATIVE [facility] CenterAutomated urine sediment leukocyte count by microscopy (number/high power field)2019-12-14 09:35:00* Test Item Value Reference Range Interpretation Comments Urine WBC (test code = 5821-4) 11-20 0-5 [facility] CenterErythrocytes detection in urine sediment by light xywbfsagmy1530-48-17 09:35:00* Test Item Value Reference Range Interpretation Comments Urine RBC (test code = 07428-9) 6-10 0-5 [facility] CenterBacteria detection in urine sediment by light uvshfyekzl9575-66-34 09:35:00* Test Item Value Reference Range Interpretation Comments Urine Bacteria (test code = 90985-9) RARE NONE [facility] CenterEpithelial cells detection in urine sediment by light neagzqcxan9578-91-71 09:35:00* Test Item Value Reference Range Interpretation Comments Urine Epithelial Cells (test code = 26291-9) FEW NONE [facility] CenterUrine color bmglimcjsbdqu2121-27-15 09:35:00* Test Item Value Reference Range Interpretation Comments Urine Color (test code = 5778-6) ORANGE YELLOW [facility] CenterUrine sitbfex2538-67-57 09:35:00* Test Item Value Reference Range Interpretation Comments Urine Clarity (test code = 21976-1) SL CLOUDY CLEAR [facility]iscopecific gravity of Urine by Test strip 2019-12-14 09:35:00* Test Item Value Reference Range Interpretation Comments Urine Specific [place] (test code = 5811-5) >=1.030 1.010-1.02 5 [facility] CenterUrine pH measurement by automated test aysgr7811-56-63 09:35:00* Test Item Value Reference Range Interpretation Comments Urine pH (test code = 96320-1) 6 5-7 [facility] CenterUrine leukocyte esterase detection by sbwxghgh0652-90-52 09:35:00* Test Item Value Reference Range Interpretation Comments Urine Leukocyte Esterase (test code = 5799-2) NEGATIVE NEGATIVE [facility] CenterUrine nitrite twhoksnbi1535-93-66 09:35:00* Test Item Value Reference Range Interpretation Comments Urine Nitrite (test code = 66064-4) NEGATIVE NEGATIVE [facility] CenterUrine protein measurement by test strip (mass/volume)2019-12-14 09:35:00* Test Item Value Reference Range Interpretation Comments Urine Protein (test code = 5804-0) 2+ NEGATIVE [facility] CenterUrine glucose hquehkfwe9516-99-01 09:35:00* Test Item Value Reference Range Interpretation Comments Urine Glucose (UA) (test code = 2349-9) NEGATIVE NEGATIVE [facility] CenterUrine ketones detection by automated test olaow7219-97-69 09:35:00* Test Item Value Reference Range Interpretation Comments Urine Ketones (test code = 17303-7) 2+ NEGATIVE [facility] CenterUrine opiates screening llvs9173-99-22 09:35:00* Test Item Value Reference Range Interpretation Comments Urine Opiates Screen (test code = 19048-6) POSITIVE NEGATIVE This test provides only a screen. Positive results should be repeated by a confi rmatory test.[facility] CenterBarbiturates screen, urine 2019-12-14 09:35:00* Test Item Value Reference Range Interpretation Comments Urine Barbiturates Screen (test code = 376456524) NEGATIVE NEGA TIVE [facility] CenterUrine phencyclidine detection by screening oieuwp9699-42-57 09:35:00* Test Item Value Reference Range Interpretation Comments Urine Phencyclidine Screen (test code = 62825-8) NEGATIVE NEGAT ANGY [facility] CenterUrine amphetamines detection by screen method > 1000 ng/kJ0150-53-01 09:35:00* Test Item Value Reference Range Interpretation Comments Urine Amphetamines Screen (test code = 82832-0) NEGATIVE NEGATI VE [facility] CenterFluoroscopic procedure less than one hour cucjyfeh5375-14-88 09:35:00* Test Item Value Reference Range Interpretation Comments Urine Methamphetamines Screen (test code = Urine Metha mphetamines Screen) NEGATIVE NEGATIVE [facility] CenterUrine benzodiazepines detection by screening hfbezq0529-77-38 09:35:00* Test Item Value Reference Range Interpretation Comments Urine Benzodiazepines Screen (test code = 43691-0) NEGATIVE NEG ATIVE [facility] CenterUrine cocaine measurement (mass/volume) 2019-12-14 09:35:00* Test Item Value Reference Range Interpretation Comments Urine Cocaine Screen (test code = 3398-5) POSITIVE NEGATIVE This test provides only a screen. Positive results should be repeated by a confi rmatory test.[facility] CenterUrine cannabinoids detection by screening oenuna8929-64-92 09:35:00* Test Item Value Reference Range Interpretation Comments Urine Cannabinoids Screen (test code = 62399-5) POSITIVE NEGATI VE This test provides only a screen. Positive results should be repeated by a confi rmatory test.[facility] CenterUrine methadone screen 2019-12-14 09:35:00* Test Item Value Reference Range Interpretation Comments Urine Methadone Screen (test code = 12792-2) NEGATIVE NEGATIVE THESE RESULTS ARE FOR MEDICAL TREATMENT ONLYTHIS REPORT CONTAINS UNCONFIR MED SCREENING RESULTS*POSITIVE RESULTS WILL BE CONFIRMED BY REFERENCE LAB UPON R EQUEST CUT-OFFDRUG CLASS CONCENTRATION ng/mLAmphetamines 1000Methamphetamines 1000Cocaine Metabolite 300Opiate 300Phencyc lidine 25Cannabinoid 50Barbiturates 300Benzodiazepine 300Methadone 300[facility] urobilinogen measurement by test strip (mass/volume)2019-12-14 09:35:00* Test Item Value Reference Range Interpretation Comments Urine Urobilinogen (test code = 12559-1) 0.2 0.2-1 [facility] CenterUrine total bilirubin measurement (mass/volume)2019-12-14 09:35:00* Test Item Value Reference Range Interpretation Comments Urine Bilirubin (test code = 1978-6) SMALL NEGATIVE [facility] CenterUrine erythrocytes ylpiidkpb4288-33-37 09:35:00* Test Item Value Reference Range Interpretation Comments Urine Blood (test code = 07118-4) MODERATE NEGATIVE [facility] CenterAutomated urine sediment leukocyte count by microscopy (number/high power field)2019-12-14 09:35:00* Test Item Value Reference Range Interpretation Comments Urine WBC (test code = 5821-4) 11-20 0-5 [facility] CenterErythrocytes detection in urine sediment by light onxcyjfimg5943-31-95 09:35:00* Test Item Value Reference Range Interpretation Comments Urine RBC (test code = 33295-1) 6-10 0-5 [facility] CenterBacteria detection in urine sediment by light tozlfmlois5874-03-80 09:35:00* Test Item Value Reference Range Interpretation Comments Urine Bacteria (test code = 20333-6) RARE NONE [facility] CenterEpithelial cells detection in urine sediment by light idizrfbsqd8217-55-78 09:35:00* Test Item Value Reference Range Interpretation Comments Urine Epithelial Cells (test code = 06770-1) FEW NONE [facility] CenterUrine color pofrmykmidvzt3968-20-53 09:35:00* Test Item Value Reference Range Interpretation Comments Urine Color (test code = 5778-6) ORANGE YELLOW [facility] CenterUrine oobbyqy0910-21-28 09:35:00* Test Item Value Reference Range Interpretation Comments Urine Clarity (test code = 88874-6) SL CLOUDY CLEAR [facility]iscopecific gravity of Urine by Test strip 2019-12-14 09:35:00* Test Item Value Reference Range Interpretation Comments Urine Specific [place] (test code = 5811-5) >=1.030 1.010-1.02 5 [facility] CenterUrine pH measurement by automated test ljprf1714-70-30 09:35:00* Test Item Value Reference Range Interpretation Comments Urine pH (test code = 19578-7) 6 5-7 [facility] CenterUrine leukocyte esterase detection by lhbambbp1055-56-77 09:35:00* Test Item Value Reference Range Interpretation Comments Urine Leukocyte Esterase (test code = 5799-2) NEGATIVE NEGATIVE [facility] CenterUrine nitrite algaahmqs5334-46-35 09:35:00* Test Item Value Reference Range Interpretation Comments Urine Nitrite (test code = 82806-7) NEGATIVE NEGATIVE [facility] CenterUrine protein measurement by test strip (mass/volume)2019-12-14 09:35:00* Test Item Value Reference Range Interpretation Comments Urine Protein (test code = 5804-0) 2+ NEGATIVE [facility] CenterUrine glucose pkojnyhdm2531-50-26 09:35:00* Test Item Value Reference Range Interpretation Comments Urine Glucose (UA) (test code = 2349-9) NEGATIVE NEGATIVE [facility] CenterUrine ketones detection by automated test uqllw9107-61-75 09:35:00* Test Item Value Reference Range Interpretation Comments Urine Ketones (test code = 26924-9) 2+ NEGATIVE [facility] CenterUrine urobilinogen measurement by test strip (mass/volume)2019-12-14 09:35:00* Test Item Value Reference Range Interpretation Comments Urine Urobilinogen (test code = 93661-0) 0.2 0.2-1 [facility] CenterUrine total bilirubin measurement (mass/volume)2019-12-14 09:35:00* Test Item Value Reference Range Interpretation Comments Urine Bilirubin (test code = 1978-6) SMALL NEGATIVE [facility] CenterUrine erythrocytes xepkddvvw4242-18-09 09:35:00* Test Item Value Reference Range Interpretation Comments Urine Blood (test code = 25838-3) MODERATE NEGATIVE [facility] CenterAutomated urine sediment leukocyte count by microscopy (number/high power field)2019-12-14 09:35:00* Test Item Value Reference Range Interpretation Comments Urine WBC (test code = 5821-4) 11-20 0-5 [facility] CenterErythrocytes detection in urine sediment by light fuugeklajo1042-95-07 09:35:00* Test Item Value Reference Range Interpretation Comments Urine RBC (test code = 44129-2) 6-10 0-5 [facility] CenterBacteria detection in urine sediment by light wzsdvcoahe1448-40-90 09:35:00* Test Item Value Reference Range Interpretation Comments Urine Bacteria (test code = 78532-8) RARE NONE [facility] CenterEpithelial cells detection in urine sediment by light eknoovwter0824-31-62 09:35:00* Test Item Value Reference Range Interpretation Comments Urine Epithelial Cells (test code = 21076-8) FEW NONE [facility] CenterBlood leukocytes automated count (number/volume)2019-12-14 08:00:00* Test Item Value Reference Range Interpretation Comments White Blood Count (test code = 6690-2) 8.67 4.8-10.8 [facility] CenterBlood erythrocytes automated count (number/volume)2019-12-14 08:00:00* Test Item Value Reference Range Interpretation Comments Red Blood Count (test code = 789-8) 4.16 4.3-5.7 [facility] CenterBlood hemoglobin measurement (moles/volume)2019-12-14 08:00:00* Test Item Value Reference Range Interpretation Comments Hemoglobin (test code = 55206-3) 13.6 14.0-18.0 [facility] CenterAutomated blood hematocrit (volume fraction)2019-12-14 08:00:00* Test Item Value Reference Range Interpretation Comments Hematocrit (test code = 4544-3) 40.9 38.2-49.6 [facility] CenterAutomated erythrocyte mean corpuscular gvjlsc1747-71-59 08:00:00* Test Item Value Reference Range Interpretation Comments Mean Corpuscular Volume (test code = 787-2) 98.3 81-99 [facility] CenterAutomated erythrocyte mean corpuscular hemoglobin (mass per erythrocyte)2019-12-14 08:00:00* Test Item Value Reference Range Interpretation Comments Mean Corpuscular Hemoglobin (test code = 785-6) 32.7 28-32 [facility] CenterAutfrye regional medical center alexander campused erythrocyte mean corpuscular hemoglobin concentration measurement (mass/volume)2019-12-14 08:00:00* Test Item Value Reference Range Interpretation Comments Mean Corpuscular Hemoglobin Concent (test code = 786-4) 33.3 31-35 [facility] CenterRDW VvjJm-Trn2958-04-13 08:00:00* Test Item Value Reference Range Interpretation Comments Red Cell Distribution Width (test code = 44909-6) 12.0 11.7 -14.4 [facility] CenterAutfrye regional medical center alexander campused blood platelet count (count/volume)2019-12-14 08:00:00* Test Item Value Reference Range Interpretation Comments Platelet Count (test code = 777-3) 206 140-360 [facility] CenterAutomated blood segmented neutrophil count as percentage of total lmqceuwsyx3078-39-44 08:00:00* Test Item Value Reference Range Interpretation Comments Neutrophils (%) (Auto) (test code = 59205-7) 61.8 38.7-80.0 [facility] CenterAutfrye [facility] medical center alexander campused blood lymphocyte count as percentage ot total gwgpltsdum2537-19-80 08:00:00* Test Item Value Reference Range Interpretation Comments Lymphocytes (%) (Auto) (test code = 736-9) 30.0 18.0-39.1 [facility] CenterAutomated blood monocyte count as percentage of total trtrbndpns6019-25-34 08:00:00* Test Item Value Reference Range Interpretation Comments Monocytes (%) (Auto) (test code = 5905-5) 6.8 4.4-11.3 [facility] CenterAutomated blood eosinophil count as percentage of total umrhfrydzw5565-26-53 08:00:00* Test Item Value Reference Range Interpretation Comments Eosinophils (%) (Auto) (test code = 713-8) 0.5 0.0-6.0 [facility] CenterAutomated blood basophil count as percentage of total vjjubaygwf1199-79-72 08:00:00* Test Item Value Reference Range Interpretation Comments Basophils (%) (Auto) (test code = 706-2) 0.6 0.0-1.0 [facility] CenterFluoroscopic procedure less than one hour etrrxnvz4378-88-54 08:00:00* Test Item Value Reference Range Interpretation Comments IM GRANULOCYTES % (test code = IM GRANULOCYTES %) 0.3 0.0- 1.0 [facility] CenterAutomated blood neutrophil count 2019-12-14 08:00:00* Test Item Value Reference Range Interpretation Comments Neutrophils # (Auto) (test code = 751-8) 5.4 2.1-6.9 [facility] CenterBlood lymphocytes count (number/volume) 2019-12-14 08:00:00* Test Item Value Reference Range Interpretation Comments Lymphocytes # (Auto) (test code = 45975-2) 2.6 1.0-3.2 [facility] CenterBlood monocytes automated count (number/volume)2019-12-14 08:00:00* Test Item Value Reference Range Interpretation Comments Monocytes # (Auto) (test code = 742-7) 0.6 0.2-0.8 [facility] CenterAutomated blood eosinophil count 2019-12-14 08:00:00* Test Item Value Reference Range Interpretation Comments Eosinophils # (Auto) (test code = 711-2) 0.0 0.0-0.4 [facility] CenterAutomated blood basophil count (count/volume)2019-12-14 08:00:00* Test Item Value Reference Range Interpretation Comments Basophils # (Auto) (test code = 704-7) 0.1 0.0-0.1 [facility] CenterFluoroscopic procedure less than one hour jazekmgk3596-23-01 08:00:00* Test Item Value Reference Range Interpretation Comments Absolute Immature Granulocyte (auto (jourdan t code = Absolute Immature Granulocyte (auto) 0.03 0-0.1 [facility]isco[facility]um or plasma sodium measurement (moles/volume)2019-12-14 08:00:00* Test Item Value Reference Range Interpretation Comments Sodium Level (test code = 2951-2) 145 136-145 [facility] Friscoerum or plasma potassium measurement (moles/volume)2019-12-14 08:00:00* Test Item Value Reference Range Interpretation Comments Potassium Level (test code = 2823-3) 4.0 3.5-5.1 [facility] Friscoerum or plasma chloride measurement (moles/volume)2019-12-14 08:00:00* Test Item Value Reference Range Interpretation Comments Chloride Level (test code = 2075-0) 112 98-107 [facility] Friscoerum or plasma carbon dioxide, total measurement (moles/volume)2019-12-14 08:00:00* Test Item Value Reference Range Interpretation Comments Carbon Dioxide Level (test code = 2028-9) 17 22-29 [facility] Friscoerum or plasma anion daj9337-35-61 08:00:00* Test Item Value Reference Range Interpretation Comments Anion Gap (test code = 04132-1) 20.0 8-16 [facility] Friscoerum or plasma urea nitrogen measurement (mass/volume)2019-12-14 08:00:00* Test Item Value Reference Range Interpretation Comments Blood Urea Nitrogen (test code = 3094-0) 15 7-26 [facility]iscoerum or plasma creatinine measurement (mass/volume)2019-12-14 08:00:00* Test Item Value Reference Range Interpretation Comments Creatinine (test code = 2160-0) 1.44 0.72-1.25 [facility]iscoerum or plasma urea nitrogen/creatinine mass hkxtm5871-81-30 08:00:00* Test Item Value Reference Range Interpretation Comments BUN/Creatinine Ratio (test code = 3097-3) 10 6-25 [facility] CenterEstimated glomerular filtration rate (GFR) ahsikhdwjdwtn9448-46-48 08:00:00* Test Item Value Reference Range Interpretation Comments Estimat Glomerular Filtration Rate (test code = 995868190) > 60 >60 Ranges were taken from the National Kidney Disease Education Program and the [facility] literature.Reference ranges:60 or greater: Jnvgho00-97 ( for 3 consecutive months): Chronic kidney disease 15 or less: Kidney failureTitus Regional Medical CenterGlucose xbjirlrytsp9614-06-69 08:00:00* Test Item Value Reference Range Interpretation Comments Glucose Level (test code = EIU2745) 101 74-118 [facility]iscoerum or plasma calcium measurement (mass/volume)2019-12-14 08:00:00* Test Item Value Reference Range Interpretation Comments Calcium Level (test code = 63015-1) 10.7 8.4-10.2 [facility]iscoerum or plasma total bilirubin measurement (mass/volume)2019-12-14 08:00:00* Test Item Value Reference Range Interpretation Comments Total Bilirubin (test code = 1975-2) 0.9 0.2-1.2 [facility] CenterFluoroscopic procedure less than one hour hkwysrpi1701-48-42 08:00:00* Test Item Value Reference Range Interpretation Comments Aspartate Amino Transf (AST/SGOT) (test code = Aspartate Amino Transf (AST/SGOT)) 17 5-34 [facility] Friscoerum or plasma alanine aminotransferase measurement (enzymatic activity/volume)2019-12-14 08:00:00* Test Item Value Reference Range Interpretation Comments Alanine Aminotransferase (ALT/SGPT) (test code = 1742-6) 15 0-55 [facility]iscoerum or plasma protein measurement (mass/volume)2019-12-14 08:00:00* Test Item Value Reference Range Interpretation Comments Total Protein (test code = 2885-2) 9.1 6.5-8.1 [facility]iscoerum or plasma albumin measurement (mass/volume)2019-12-14 08:00:00* Test Item Value Reference Range Interpretation Comments Albumin (test code = 1751-7) 4.9 3.5-5.0 [facility] CenterPlasma globulin measurement (mass/volume) 2019-12-14 08:00:00* Test Item Value Reference Range Interpretation Comments Globulin (test code = 28526-0) 4.2 2.3-3.5 [facility]iscoerum or plasma albumin/globulin mass ailyj9758-53-06 08:00:00* Test Item Value Reference Range Interpretation Comments Albumin/Globulin Ratio (test code = 1759-0) 1.2 0.8-2.0 [facility]iscoerum or plasma alkaline phosphatase measurement (enzymatic activity/volume)2019-12-14 08:00:00* Test Item Value Reference Range Interpretation Comments Alkaline Phosphatase (test code = 6768-6) 94 40-150 [facility]iscoerum or plasma creatine kinase measurement (enzymatic activity/volume)2019-12-14 08:00:00* Test Item Value Reference Range Interpretation Comments Creatine Kinase (test code = 2157-6) 57 30-200 [facility] Friscoerum or plasma creatine kinase MB measurement (mass/volume)2019-12-14 08:00:00* Test Item Value Reference Range Interpretation Comments Creatine Kinase MB (test code = 21521-5) 0.40 0-5.0 [facility] CenterTroponin I measurement by highly sensitive enzyme gibshnmfude5192-40-97 08:00:00* Test Item Value Reference Range Interpretation Comments Troponin I (test code = 49502-2) 0.004 0-0.300 [facility]iscoerum or plasma lipase measurement (enzymatic activity/volume)2019-12-14 08:00:00* Test Item Value Reference Range Interpretation Comments Lipase (test code = 3040-3) 19 8-78 [facility] Friscoerum or plasma creatine kinase measurement (enzymatic activity/volume)2019-12-14 08:00:00* Test Item Value Reference Range Interpretation Comments Creatine Kinase (test code = 2157-6) 57 30-200 [facility] Friscoerum or plasma creatine kinase MB measurement (mass/volume)2019-12-14 08:00:00* Test Item Value Reference Range Interpretation Comments Creatine Kinase MB (test code = 91378-6) 0.40 0-5.0 [facility] CenterTroponin I measurement by highly sensitive enzyme tqoaqogixwg0231-49-07 08:00:00* Test Item Value Reference Range Interpretation Comments Troponin I (test code = 95353-0) 0.004 0-0.300 [facility]iscoerum or plasma creatine kinase measurement (enzymatic activity/volume)2019-12-14 08:00:00* Test Item Value Reference Range Interpretation Comments Creatine Kinase (test code = 2157-6) 57 30-200 [facility]iscoerum or plasma creatine kinase MB measurement (mass/volume)2019-12-14 08:00:00* Test Item Value Reference Range Interpretation Comments Creatine Kinase MB (test code = 97584-6) 0.40 0-5.0 [facility] CenterTroponin I measurement by highly sensitive enzyme xqitxlvixxc8631-66-17 08:00:00* Test Item Value Reference Range Interpretation Comments Troponin I (test code = 45923-5) 0.004 0-0.300 [facility] CenterUrine Opiates Gbvmwy7989-79-48 13:43:00* Test Item Value Reference Range Interpretation Comments Urine Opiates Screen (test code = 14945-0) NEGATIVE NEGATIVE ALL TESTS PERFORMED MANUALLY ON BIORAD TOX/SEE TEST --- 04/04/19 1340 ---OPIATE S previously reported as: N ALL TESTS PERFORMED MANUALLY ON BIORAD TOX/SEE TEST [facility] CenterUrine Barbiturates Xbyday1107-90-64 13:43:00* Test Item Value Reference Range Interpretation Comments Urine Barbiturates Screen (test code = 643458194) NEGATIVE NEGA TIVE --- 04/04/19 1341 ---BARBITURATES previously reported as: N [facility] CenterUrine Phencyclidine Hcvjdq0846-95-80 13:43:00* Test Item Value Reference Range Interpretation Comments Urine Phencyclidine Screen (test code = 73762-6) NEGATIVE NEGAT ANGY --- 04/04/19 1341 ---PCP [facility]: [facility] Amphetamines Jutgun2631-03-83 13:43:00* Test Item Value Reference Range Interpretation Comments Urine Amphetamines Screen (test code = 98906-4) NEGATIVE NEGATI VE --- 04/04/19 1342 ---AMPHETAMINES previously reported as: [facility] CenterU[facility] Methamphetamines Faxpgx8409-39-35 13:43:00* Test Item Value Reference Range Interpretation Comments Urine Methamphetamines Screen (test code = Urine Metha mphetamines Screen) NEGATIVE NEGATIVE --- 04/04/19 1342 ---MAMP previously reported as: [facility] CenterU[facility] Benzodiazepines Ufbhti6262-63-05 13:43:00* Test Item Value Reference Range Interpretation Comments Urine Benzodiazepines Screen (test code = 11052-8) NEGATIVE NEG ATIVE --- 04/04/19 1342 ---BENZODIAZEPINES previously reported as: [facility] CenterU[facility] Cocaine Fanmsa0848-09-44 13:43:00* Test Item Value Reference Range Interpretation Comments Urine Cocaine Screen (test code = 3398-5) NEGATIVE NEGATIVE --- 04/04/19 1342 ---COCAINE previously reported as: [facility] CenterUrine Cannabinoids Cexjnw8426-33-10 13:43:00* Test Item Value Reference Range Interpretation Comments Urine Cannabinoids Screen (test code = 14411-6) POSITIVE NEGATI VE H This test provides only a screen. Positive results should be repeated by a confi rmatory test. --- 04/04/19 1342 ---THC previously reported as: P THESE RESU LTS ARE FOR MEDICAL TREATMENT ONLYTHIS REPORT CONTAINS UNCONFIRMED SCREENING RESULTS*POSITIVE RESULTS WILL BE CONFIRMED BY REFERENCE LAB UPON REQUEST CUT-OFFDRUG CLASS CONCENTRATION ng/mLAmphetamines 1000Methamphetamines 1000Co virgil 300Opiate 300Phencyclidine 25Cannabinoid 50Barbiturates 300Benzodi azepine 300[facility]ethadone 300[facility] Cptvtr9646-73-25 13:43:00* Test Item Value Reference Range Interpretation Comments Urine Methadone Screen (test code = 82894-2) POSITIVE NEGATIVE H This test provides only [...] 300Phencyclidine 25Cannabinoid 50Barbiturates 300 Benzodiazepine 300Methadone 300[facility]PELVIS H0437-85-41 12:24:00 [facility] [address] [address] Patient Name: QUYEN KIM MR #: [id number] : 1980 Age/Sex: 38/M Req #: [id number] Adm Physician: Ordered by: BRANDO MONTGOMERY MD Report #: [id number] Location: ER Room/Bed: Procedure: [id number] CT/CT ABDOMEN/PELVIS W Exam Date: 04/04/19 Exam [...] Color (test code = 5778-6) YELLOW YELLOW [facility] CenterUrine Exspirm0986-99-40 11:38:00* Test Item Value Reference Range Interpretation Comments Urine Clarity (test code = 37990-9) CLEAR CLEAR [facility] CenterUrine Specific Hjmxuqk4293-78-19 11:38:00 * Test Item Value Reference Range Interpretation Comments Urine Specific [place] (test code = 5811-5) 1.010 1.010-1.02 5 [facility] CenterUrine dW9235-93-21 11:38:00* Test Item Value Reference Range Interpretation Comments Urine pH (test code = 23307-6) 6.5 5-7 [facility] Leukocyte Nphfchxa5250-56-92 11:38:00* Test Item Value Reference Range Interpretation Comments Urine Leukocyte Esterase (test code = 5799-2) NEGATIVE NEGATIVE [facility] Fcosycw0531-28-89 11:38:00* Test Item Value Reference Range Interpretation Comments Urine Nitrite (test code = 48782-6) NEGATIVE NEGATIVE [facility] Xpqrvrb7723-23-94 11:38:00* Test Item Value Reference Range Interpretation Comments Urine Protein (test code = 5804-0) TRACE NEGATIVE H [facility] Glucose (UA)2019-04-04 11:38:00* Test Item Value Reference Range Interpretation Comments Urine Glucose (UA) (test code = 2349-9) NEGATIVE NEGATIVE [facility] Tfpgnmv2724-73-74 11:38:00* Test Item Value Reference Range Interpretation Comments Urine Ketones (test code = 54659-7) NEGATIVE NEGATIVE [facility] Tbkfuwzghaqi7138-86-96 11:38:00* Test Item Value Reference Range Interpretation Comments Urine Urobilinogen (test code = 22978-5) 0.2 0.2-1 [facility] Llwxuxcfb9613-04-15 11:38:00* Test Item Value Reference Range Interpretation Comments Urine Bilirubin (test code = 1978-6) NEGATIVE NEGATIVE [facility] Xuqeg9863-96-25 11:38:00* Test Item Value Reference Range Interpretation Comments Urine Blood (test code = 94050-5) NEGATIVE NEGATIVE [facility] DEY9843-16-94 11:38:00* Test Item Value Reference Range Interpretation Comments Urine WBC (test code = 5821-4) 0-5 0-5 [facility] CenterU[facility] EHV6452-25-57 11:38:00* Test Item Value Reference Range Interpretation Comments Urine RBC (test code = 55937-3) 0-5 0-5 [facility] CenterUrine Qbqbxwrm9095-02-66 11:38:00* Test Item Value Reference Range Interpretation Comments Urine Bacteria (test code = 13521-1) RARE NONE [facility] CenterUrine Epithelial Koiis6086-77-45 11:38:00 * Test Item Value Reference Range Interpretation Comments Urine Epithelial Cells (test code = 96500-0) FEW NONE [facility] Friscood[facility] Difyo6480-81-51 11:26:00* Test Item Value Reference Range Interpretation Comments Sodium Level (test code = 2951-2) 137 136-145 [facility] CenterPotassium Fjgpb6464-71-39 11:26:00* Test Item Value Reference Range Interpretation Comments Potassium Level (test code = 2823-3) 3.7 3.5-5.1 [facility] CenterChloride Ogujq2118-70-28 11:26:00* Test Item Value Reference Range Interpretation Comments Chloride Level (test code = 2075-0) 105 98-107 [facility] CenterCarbon Dioxide Hpgkc7528-56-32 11:26:00* Test Item Value Reference Range Interpretation Comments Carbon Dioxide Level (test code = 2028-9) 20 22-29 L [facility] CenterAnion Mag3472-87-09 11:26:00* Test Item Value Reference Range Interpretation Comments Anion Gap (test code = 05733-8) 15.7 8-16 [facility] CenterBlood Urea Ghodircc3531-72-89 11:26:00* Test Item Value Reference Range Interpretation Comments Blood Urea Nitrogen (test code = 3094-0) 10 7-26 [facility] CenterCreatinine2019-12-03 11:26:00* Test Item Value Reference Range Interpretation Comments Creatinine (test code = 2160-0) 1.35 0.72-1.25 H [facility] CenterBUN/Creatinine Wxqvv3520-82-48 11:26:00* Test Item Value Reference Range Interpretation Comments BUN/Creatinine Ratio (test code = 3097-3) 7 6-25 [facility] CenterEstimat Glomerular Filtration Rate 2019-04-04 11:26:00* Test Item Value Reference Range Interpretation Comments Estimat Glomerular Filtration Rate (test code = 122325460) > 60 >60 Ranges were taken from the National Kidney Disease Education Program and the [facility] literature.Reference ranges:60 or greater: Xgqbph47-57 ( for 3 consecutive months): Chronic kidney disease 15 or less: Kidney failureT[facility] Medical CenterGlucose Mungz6241-99-25 11:26:00* Test Item Value Reference Range Interpretation Comments Glucose Level (test code = RRA3715) 106 74-118 [facility] CenterCalcium Gyues1817-91-67 11:26:00* Test Item Value Reference Range Interpretation Comments Calcium Level (test code = 26110-1) 9.8 8.4-10.2 [facility] CenterMagnesium Yvjfp6957-29-86 11:26:00* Test Item Value Reference Range Interpretation Comments Magnesium Level (test code = 86551-2) 1.8 1.3-2.1 [facility] CenterTotal Iwkbbcsmi5840-30-85 11:26:00* Test Item Value Reference Range Interpretation Comments Total Bilirubin (test code = 1975-2) 0.7 0.2-1.2 [facility] CenterAspartate Amino Transf (AST/SGOT) 2019-04-04 11:26:00* Test Item Value Reference Range Interpretation Comments Aspartate Amino Transf (AST/SGOT) (test code = Aspartate Amino Transf (AST/SGOT)) 15 5-34 [facility] CenterAlanine Aminotransferase (ALT/SGPT) 2019-04-04 11:26:00* Test Item Value Reference Range Interpretation Comments Alanine Aminotransferase (ALT/SGPT) (test code = 1742-6) 19 0-55 [facility] CenterTotal Qdgqwbf8939-27-90 11:26:00* Test Item Value Reference Range Interpretation Comments Total Protein (test code = 2885-2) 8.2 6.5-8.1 H [facility] CenterAlbumin2019-12-03 11:26:00* Test Item Value Reference Range Interpretation Comments Albumin (test code = 1751-7) 4.2 3.5-5.0 [facility] CenterGlobulin2019-12-03 11:26:00* Test Item Value Reference Range Interpretation Comments Globulin (test code = 24369-4) 4.0 2.3-3.5 H [facility] CenterAlbumin/Globulin Qeobc1062-27-41 11:26:00 * Test Item Value Reference Range Interpretation Comments Albumin/Globulin Ratio (test code = 1759-0) 1.1 0.8-2.0 [facility] CenterAlkaline Qbspnzezimz6825-67-15 11:26:00* Test Item Value Reference Range Interpretation Comments Alkaline Phosphatase (test code = 6768-6) 76 40-150 [facility] CenterCreatine Hjsksd4738-40-06 11:26:00* Test Item Value Reference Range Interpretation Comments Creatine Kinase (test code = 2157-6) 77 30-200 [facility] CenterCreatine Kinase KI4369-38-64 11:26:00* Test Item Value Reference Range Interpretation Comments Creatine Kinase MB (test code = 15641-7) 0.60 0-5.0 [facility] CenterTroponin N1085-04-07 11:26:00* Test Item Value Reference Range Interpretation Comments Troponin I (test code = MEV8170) 0.068 0-0.300 [facility] CenterAmylase Jppun4614-43-31 11:26:00* Test Item Value Reference Range Interpretation Comments Amylase Level (test code = 1798-8) 90 25-125 [facility] CenterLipase2019-12-03 11:26:00* Test Item Value Reference Range Interpretation Comments Lipase (test code = 3040-3) 16 8-78 [facility] CenterLactic Acid Qudwh1164-37-35 11:25:00* Test Item Value Reference Range Interpretation Comments Lactic Acid Level (test code = Lactic Acid Level) 1.2 0.5- 2.0 [facility] CenterProthrombin Mywh3947-03-74 10:58:00* Test Item Value Reference Range Interpretation Comments Prothrombin Time (test code = 5902-2) 13.2 11.9-14.5 [facility] CenterProthromb Time International Ratio 2019-04-04 10:58:00* Test Item Value Reference Range Interpretation Comments Prothromb Time International Ratio (test code = 6301-6) 0.95 Oral Anticoagulant Therapy INR Values:1. Low Intensity Therapy 1.5 - 2.02 . Moderate Intensity Therapy 2.0 - 3.03. High Intensity Therapy(1) 2.5 - 3. 54. High Intensity Therapy(2) 3.0 - 4.05. Panic Value INR > 5.0 [facility] [facility]Act[facility] 2019-04-04 10:58:00* Test Item Value Reference Range Interpretation Comments Activated Partial Thromboplast Time (test code = 89098-1) 29.7 23.8-35.5 [facility] CenterCHEST SINGLE (PORTABLE)2019-04-04 10:27:00 [place] [address] Patient Name: QUYEN KIM MR #: [id number] : 1980 Age/Sex: 38/M Req #: [id number] Adm Physician: Ordered by: BRANDO MONTGOMERY MD Report #: [id number] Location: ER Room/Bed: Procedure: [id number] DX/CH EST SINGLE (PORTABLE) Exam Date: 04/04/19 [...] COPY TO: BRANDO MONTGOMERY MD White Blood Kmwmb9630-44-22 10:10:00* Test Item Value Reference Range Interpretation Comments White Blood Count (test code = 6690-2) 8.03 4.8-10.8 [facility] CenterRed Blood Wdtng2626-36-15 10:10:00* Test Item Value Reference Range Interpretation Comments Red Blood Count (test code = 789-8) 3.79 4.3-5.7 L [facility] CenterHemoglobin2019-12-03 10:10:00* Test Item Value Reference Range Interpretation Comments Hemoglobin (test code = 71997-5) 12.3 14.0-18.0 L [facility] CenterHematocrit2019-12-03 10:10:00* Test Item Value Reference Range Interpretation Comments Hematocrit (test code = 4544-3) 36.2 38.2-49.6 L [facility] CenterMean Corpuscular Hddpzz7026-09-75 10:10:00* Test Item Value Reference Range Interpretation Comments Mean Corpuscular Volume (test code = 787-2) 95.5 81-99 [facility] Corpuscular Ypisqkxplb8556-00-30 10:10:00* Test Item Value Reference Range Interpretation Comments Mean Corpuscular Hemoglobin (test code = 785-6) 32.5 28-32 H [facility] Corpuscular Hemoglobin Concent 2019-04-04 10:10:00* Test Item Value Reference Range Interpretation Comments Mean Corpuscular Hemoglobin Concent (test code = 786-4) 34.0 31-35 [facility] CenterRed Cell Distribution Byiyv4655-45-67 10:10:00* Test Item Value Reference Range Interpretation Comments Red Cell Distribution Width (test code = 11875-2) 12.6 11.7 -14.4 [facility] CenterPlatelet Orrqn9315-63-85 10:10:00* Test Item Value Reference Range Interpretation Comments Platelet Count (test code = 777-3) 260 140-360 [facility] CenterNeutrophils (%) (Auto)2019-04-04 10:10:00 * Test Item Value Reference Range Interpretation Comments Neutrophils (%) (Auto) (test code = 78075-7) 57.8 38.7-80.0 [facility] CenterLymphocytes (%) (Auto)2019-04-04 10:10:00 * Test Item Value Reference Range Interpretation Comments Lymphocytes (%) (Auto) (test code = 736-9) 33.6 18.0-39.1 [facility] CenterMonocytes (%) (Auto)2019-04-04 10:10:00* Test Item Value Reference Range Interpretation Comments Monocytes (%) (Auto) (test code = 5905-5) 7.1 4.4-11.3 [facility] CenterEosinophils (%) (Auto)2019-04-04 10:10:00 * Test Item Value Reference Range Interpretation Comments Eosinophils (%) (Auto) (test code = 713-8) 0.6 0.0-6.0 [facility] CenterBasophils (%) (Auto)2019-04-04 10:10:00* Test Item Value Reference Range Interpretation Comments Basophils (%) (Auto) (test code = 706-2) 0.5 0.0-1.0 [facility] CenterIM GRANULOCYTES %2019-04-04 10:10:00* Test Item Value Reference Range Interpretation Comments IM GRANULOCYTES % (test code = IM GRANULOCYTES %) 0.4 0.0- 1.0 [facility] CenterNeutrophils # (Auto)2019-04-04 10:10:00* Test Item Value Reference Range Interpretation Comments Neutrophils # (Auto) (test code = 751-8) 4.6 2.1-6.9 [facility] CenterLymphocytes # (Auto)2019-04-04 10:10:00* Test Item Value Reference Range Interpretation Comments Lymphocytes # (Auto) (test code = 14451-3) 2.7 1.0-3.2 [facility] CenterMonocytes # (Auto)2019-04-04 10:10:00* Test Item Value Reference Range Interpretation Comments Monocytes # (Auto) (test code = 742-7) 0.6 0.2-0.8 [facility] CenterEosinophils # (Auto)2019-04-04 10:10:00* Test Item Value Reference Range Interpretation Comments Eosinophils # (Auto) (test code = 711-2) 0.1 0.0-0.4 [facility] CenterBasophils # (Auto)2019-04-04 10:10:00* Test Item Value Reference Range Interpretation Comments Basophils # (Auto) (test code = 704-7) 0.0 0.0-0.1 [facility] CenterAbsolute Immature Granulocyte (auto 2019-04-04 10:10:00* Test Item Value Reference Range Interpretation Comments Absolute Immature Granulocyte (auto (jourdan t code = Absolute Immature Granulocyte (auto) 0.03 0-0.1 [facility] CenterFluoroscopic procedure less than one hour yhqqxjyh8198-49-16 09:40:00* Test Item Value Reference Range Interpretation Comments Lactic Acid Level (test code = Lactic Acid Level) 1.2 0.5- 2.0 [facility]um or plasma magnesium measurement (mass/volume)2019-04-04 09:40:00* Test Item Value Reference Range Interpretation Comments Magnesium Level (test code = 18348-0) 1.8 1.3-2.1 [facility]iscoerum or plasma amylase measurement (enzymatic activity/volume)2019-04-04 09:40:00* Test Item Value Reference Range Interpretation Comments Amylase Level (test code = 1798-8) [facility] CenterFluoroscopic procedure less than one hour vpxdxcir5449-52-59 09:40:00* Test Item Value Reference Range Interpretation Comments Lactic Acid Level (test code = Lactic Acid Level) 1.2 0.5- 2.0 [facility]iscoerum or plasma magnesium measurement (mass/volume)2019-04-04 09:40:00* Test Item Value Reference Range Interpretation Comments Magnesium Level (test code = 92173-1) 1.8 1.3-2.1 [facility] Friscoerum or plasma amylase measurement (enzymatic activity/volume)2019-04-04 09:40:00* Test Item Value Reference Range Interpretation Comments Amylase Level (test code = 1798-8) [facility] CenterFluoroscopic procedure less than one hour ppnqdvmn0938-53-78 09:40:00* Test Item Value Reference Range Interpretation Comments Lactic Acid Level (test code = Lactic Acid Level) 1.2 0.5- 2.0 [facility]iscoerum or plasma magnesium measurement (mass/volume)2019-04-04 09:40:00* Test Item Value Reference Range Interpretation Comments Magnesium Level (test code = 30561-5) 1.8 1.3-2.1 [facility]iscoerum or plasma amylase measurement (enzymatic activity/volume)2019-04-04 09:40:00* Test Item Value Reference Range Interpretation Comments Amylase Level (test code = 1798-8) [facility] CenterProthrombin time (PT) in platelet poor plasma by coagulation edusj4503-99-02 08:53:00* Test Item Value Reference Range Interpretation Comments Prothrombin Time (test code = 5902-2) 13.2 11.9-14.5 [facility] CenterINR in Platelet poor plasma by Coagulation dqoda7745-11-53 08:53:00* Test Item Value Reference Range Interpretation Comments Prothromb Time International Ratio (test code = 6301-6) 0.95 Oral Anticoagulant Therapy INR Values:1. Low Intensity Therapy 1.5 - 2.02 . Moderate Intensity Therapy 2.0 - 3.03. High Intensity Therapy(1) 2.5 - 3. 54. High Intensity Therapy(2) 3.0 - 4.05. Panic Value INR > 5.0 [facility] CenterActivated partial thromboplastin time (aPTT) in platelet poor plasma by coagulation czuhj4629-61-61 08:53:00* Test Item Value Reference Range Interpretation Comments Activated Partial Thromboplast Time (test code = 24529-2) 29.7 23.8-35.5 [facility] 08:53:00* Test Item Value Reference Range Interpretation Comments Blood Culture (test code = 84280480) NO GROWTH AFTER 5 DAYS, FINAL REPORT [facility] CenterProthrombin time (PT) in platelet poor plasma by coagulation tagrh0142-45-06 08:53:00* Test Item Value Reference Range Interpretation Comments Prothrombin Time (test code = 5902-2) 13.2 11.9-14.5 [facility] CenterINR in Platelet poor plasma by Coagulation uuaeb3346-46-79 08:53:00* Test Item Value Reference Range Interpretation Comments Prothromb Time International Ratio (test code = 6301-6) 0.95 Oral Anticoagulant Therapy INR Values:1. Low Intensity Therapy 1.5 - 2.02 . Moderate Intensity Therapy 2.0 - 3.03. High Intensity Therapy(1) 2.5 - 3. 54. High Intensity Therapy(2) 3.0 - 4.05. Panic Value INR > 5.0 [facility] CenterActivated partial thromboplastin time (aPTT) in platelet poor plasma by coagulation axbfu9345-16-24 08:53:00* Test Item Value Reference Range Interpretation Comments Activated Partial Thromboplast Time (test code = 52505-3) 29.7 23.8-35.5 [facility] lhtngzd9438-95-87 08:53:00* Test Item Value Reference Range Interpretation Comments Blood Culture (test code = 18120431) NO GROWTH AFTER 5 DAYS, FINAL REPORT [facility] CenterProthrombin time (PT) in platelet poor plasma by coagulation yckfj9892-92-31 08:53:00* Test Item Value Reference Range Interpretation Comments Prothrombin Time (test code = 5902-2) 13.2 11.9-14.5 [facility] CenterINR in Platelet poor plasma by Coagulation rxsib2259-59-19 08:53:00* Test Item Value Reference Range Interpretation Comments Prothromb Time International Ratio (test code = 6301-6) 0.95 Oral Anticoagulant Therapy INR Values:1. Low Intensity Therapy 1.5 - 2.02 . Moderate Intensity Therapy 2.0 - 3.03. High Intensity Therapy(1) 2.5 - 3. 54. High Intensity Therapy(2) 3.0 - 4.05. Panic Value INR > 5.0 [facility] CenterActivated partial thromboplastin time (aPTT) in platelet poor plasma by coagulation ktbtr6126-09-37 08:53:00* Test Item Value Reference Range Interpretation Comments Activated Partial Thromboplast Time (test code = 73370-7) 29.7 23.8-35.5 [facility] CenterBlood xvktqbk5442-92-15 08:53:00* Test Item Value Reference Range Interpretation Comments Blood Culture (test code = 85217750) NO GROWTH AFTER 5 DAYS, FINAL REPORT [facility] CenterTissue Transglutaminase IgA Kj0499-45-92 06:10:00* Test Item Value Reference Range Interpretation Comments Tissue Transglutaminase IgA Ab (test code = 19089-4) <2 0 -3 Negative 0 - 3 Weak Positive 4 - 10 Positive >10 Tissue Transglutaminase (tTG) has been identified as the endomysial antigen. Studies have demonstr- ated that endomysial IgA antibodies have over 99% specif icity for gluten sensitive enteropathy.[facility] Immunoglobulin D9908-75-20 06:10:00* Test Item Value Reference Range Interpretation Comments Immunoglobulin A (test code = 2458-8) 150 90-280 Performed at: [facility] [address] [id number] Computational Theory Scientist: Lai Olson MD, Phone: [phone] at: [facility]Co[address] [id number] Director: Alejo Malin MD, Ph one: [phone] Regional Medical CenterEndomysial IgA Antibody 2019-03-21 06:10:00* Test Item Value Reference Range Interpretation Comments Endomysial IgA Antibody (test code = 42666-8) Negative Negative [facility] CenterTissue Transglutaminase IgA Bv9402-53-08 06:10:00* Test Item Value Reference Range Interpretation Comments Tissue Transglutaminase IgA Ab (test code = 97767-1) <2 0 -3 Negative 0 - 3 Weak Positive 4 - 10 Positive >10 Tissue Transglutaminase (tTG) has been identified as the endomysial antigen. Studies have demonstr- ated that endomysial IgA antibodies have over 99% specif icity for gluten sensitive enteropathy.[facility] Immunoglobulin O2683-53-52 06:10:00* Test Item Value Reference Range Interpretation Comments Immunoglobulin A (test code = 2458-8) 150 90-386 Performed at: - [email or web address] [address] [id number] Computational Theory Scientist: Lai Olson MD, Phone: [phone] at: [employer] [facility] [address] [id number] Director: Alejo Malin MD, Ph one: [phone] Regional Medical CenterEndomysial IgA Antibody 2019-03-21 06:10:00* Test Item Value Reference Range Interpretation Comments Endomysial IgA Antibody (test code = 43998-7) Negative Negative [facility] CenterBlood Tkochgb4314-88-21 14:11:00* Test Item Value Reference Range Interpretation Comments Blood Culture (test code = 88194725) NO GROWTH AFTER 5 DAYS, FINAL REPORT [facility] CenterBlood Hbyldfi6558-01-04 14:11:00* Test Item Value Reference Range Interpretation Comments Blood Culture (test code = 91052354) NO GROWTH AFTER 5 DAYS, FINAL REPORT [facility] CenterRBC Folate Jgituxkbgq2248-81-67 20:40:00 * Test Item Value Reference Range Interpretation Comments RBC Folate Hemolysate (test code = 2282-2) 268.2 Not Estab. [facility] CenterHematocrit2019-11-15 20:40:00* Test Item Value Reference Range Interpretation Comments Hematocrit (test code = 4544-3) 29.1 37.5-51.0 L [facility] Folate Mcdgqbpnjw9397-86-92 20:40:00 * Test Item Value Reference Range Interpretation Comments RBC Folate Hemolysate (test code = 2283-0) 922 >498 Performed at: [address] [id number] Director: Alejo Malin MD, Phone: [phone] Regional Medical CenterC-Reactive Ybuukab3623-76-21 20:40:00* Test Item Value Reference Range Interpretation Comments C-Reactive Protein (test code = 1987-5) 3 0-10 Performed at: [address] [id number] Director: Alejo Malin MD, Phone: [phone] [facility] Folate Fhdsaxxoxe0337-08-01 20:40:00* Test Item Value Reference Range Interpretation Comments RBC Folate Hemolysate (test code = 2282-2) 268.2 Not Estab. [facility] CenterHematocrit2019-11-15 20:40:00* Test Item Value Reference Range Interpretation Comments Hematocrit (test code = 4544-3) 29.1 37.5-51.0 L [facility] Folate Mnmmjoeumu8781-56-92 20:40:00 * Test Item Value Reference Range Interpretation Comments RBC Folate Hemolysate (test code = 2283-0) 922 >498 Performed at: [address] [id number] Director: Alejo Malin MD, Phone: [phone] Regional Medical CenterC-Reactive Dcuqmoh3050-23-17 20:40:00* Test Item Value Reference Range Interpretation Comments C-Reactive Protein (test code = 1987-5) 3 0-10 Performed at: [address] [id number] Director: Alejo Malin MD, Phone: [phone] Regional Medical CenterBlood Ccsiwpz6239-97-75 14:11:00* Test Item Value Reference Range Interpretation Comments Blood Culture (test code = 09077870) NO GROWTH AFTER 72 HOURS [facility] CenterDifferential Total Cells Counted 2019-03-16 10:54:00* Test Item Value Reference Range Interpretation Comments Differential Total Cells Counted (test code = Differen tial Total Cells Counted) 100 [facility] CenterNeutrophils % (Manual)2019-03-16 10:54:00 * Test Item Value Reference Range Interpretation Comments Neutrophils % (Manual) (test code = 53337-1) 42 40-74 [facility] CenterLymphocytes % (Manual)2019-03-16 10:54:00 * Test Item Value Reference Range Interpretation Comments Lymphocytes % (Manual) (test code = 737-7) 49 19-48 H [facility] CenterMonocytes % (Manual)2019-03-16 10:54:00* Test Item Value Reference Range Interpretation Comments Monocytes % (Manual) (test code = 744-3) 5 3.4-9.0 [facility] CenterReactive Rqzvegeqwpw6731-33-43 10:54:00* Test Item Value Reference Range Interpretation Comments Reactive Lymphocytes (test code = 19562-8) 4 [facility] CenterPlatelet Crfzuqgd0239-35-26 10:54:00* Test Item Value Reference Range Interpretation Comments Platelet Estimate (test code = 97304-0) ADEQUATE [facility] CenterPlatelet Morphology Vxuajwl4320-93-50 10:54:00* Test Item Value Reference Range Interpretation Comments Platelet Morphology Comment (test code = 36901-2) NORMAL [facility] CenterRed Cell Morphology Gxbfcxn3932-99-53 10:54:00* Test Item Value Reference Range Interpretation Comments Red Cell Morphology Comment (test code = 6742-1) NORMAL [facility] CenterDifferential Total Cells Counted 2019-03-16 10:54:00* Test Item Value Reference Range Interpretation Comments Differential Total Cells Counted (test code = Differen tial Total Cells Counted) 100 [facility] CenterNeutrophils % (Manual)2019-03-16 10:54:00 * Test Item Value Reference Range Interpretation Comments Neutrophils % (Manual) (test code = 91320-8) 42 40-74 [facility] CenterLymphocytes % (Manual)2019-03-16 10:54:00 * Test Item Value Reference Range Interpretation Comments Lymphocytes % (Manual) (test code = 737-7) 49 19-48 H [facility] CenterMonocytes % (Manual)2019-03-16 10:54:00* Test Item Value Reference Range Interpretation Comments Monocytes % (Manual) (test code = 744-3) 5 3.4-9.0 [facility] CenterReactive Vhbggjrkqsk5755-25-70 10:54:00* Test Item Value Reference Range Interpretation Comments Reactive Lymphocytes (test code = 53151-0) 4 [facility] CenterPlatelet Ahffbefl4068-11-02 10:54:00* Test Item Value Reference Range Interpretation Comments Platelet Estimate (test code = 26633-9) ADEQUATE [facility] CenterPlatelet Morphology Cwyvduh6903-74-03 10:54:00* Test Item Value Reference Range Interpretation Comments Platelet Morphology Comment (test code = 23770-6) NORMAL [facility] CenterRed Cell Morphology Fmbjruc3363-35-83 10:54:00* Test Item Value Reference Range Interpretation Comments Red Cell Morphology Comment (test code = 6742-1) NORMAL [facility] CenterDifferential Total Cells Counted 2019-03-16 10:54:00* Test Item Value Reference Range Interpretation Comments Differential Total Cells Counted (test code = Differen tial Total Cells Counted) 100 [facility] CenterNeutrophils % (Manual)2019-03-16 10:54:00 * Test Item Value Reference Range Interpretation Comments Neutrophils % (Manual) (test code = 44533-5) 42 40-74 [facility] CenterLymphocytes % (Manual)2019-03-16 10:54:00 * Test Item Value Reference Range Interpretation Comments Lymphocytes % (Manual) (test code = 737-7) 49 19-48 H [facility] CenterMonocytes % (Manual)2019-03-16 10:54:00* Test Item Value Reference Range Interpretation Comments Monocytes % (Manual) (test code = 744-3) 5 3.4-9.0 [facility] CenterReactive Hjigzqrdkqg3338-58-17 10:54:00* Test Item Value Reference Range Interpretation Comments Reactive Lymphocytes (test code = 34349-0) 4 [facility] CenterPlatelet Qbjxhkco0143-68-33 10:54:00* Test Item Value Reference Range Interpretation Comments Platelet Estimate (test code = 60393-8) ADEQUATE [facility] CenterPlatelet Morphology Daelgnm0782-89-62 10:54:00* Test Item Value Reference Range Interpretation Comments Platelet Morphology Comment (test code = 67700-2) NORMAL [facility] CenterRed Cell Morphology Mfzjpkb1843-02-74 10:54:00* Test Item Value Reference Range Interpretation Comments Red Cell Morphology Comment (test code = 6742-1) NORMAL [facility] Friscoodium Lpvdh5622-48-29 08:19:00* Test Item Value Reference Range Interpretation Comments Sodium Level (test code = 2951-2) 138 136-145 [facility] CenterPotassium Pwidj0125-82-93 08:19:00* Test Item Value Reference Range Interpretation Comments Potassium Level (test code = 2823-3) 3.3 3.5-5.1 L [facility] CenterChloride Umgts6712-57-85 08:19:00* Test Item Value Reference Range Interpretation Comments Chloride Level (test code = 2075-0) 107 98-107 [facility] CenterCarbon Dioxide Zgtah6894-53-05 08:19:00* Test Item Value Reference Range Interpretation Comments Carbon Dioxide Level (test code = 2028-9) 22 22-29 [facility] CenterAnion Utc2672-37-90 08:19:00* Test Item Value Reference Range Interpretation Comments Anion Gap (test code = 58430-6) 12.3 8-16 [facility] CenterBlood Urea Ggjdrejp0741-35-72 08:19:00* Test Item Value Reference Range Interpretation Comments Blood Urea Nitrogen (test code = 3094-0) < 5 7-26 L [facility] CenterCreatinine2019-11-14 08:19:00* Test Item Value Reference Range Interpretation Comments Creatinine (test code = 2160-0) 1.20 0.72-1.25 [facility] CenterBUN/Creatinine Ggnoa5732-38-52 08:19:00* Test Item Value Reference Range Interpretation Comments BUN/Creatinine Ratio (test code = 3097-3) 4 6-25 L [facility] CenterEstimat Glomerular Filtration Rate 2019-03-16 08:19:00* Test Item Value Reference Range Interpretation Comments Estimat Glomerular Filtration Rate (test code = 418551845) > 60 >60 Ranges were taken from the National Kidney Disease Education Program and the [facility] literature.Reference ranges:60 or greater: Orejts12-09 ( for 3 consecutive months): Chronic kidney disease 15 or less: Kidney failureTitus Regional Medical CenterGlucose Kvuzs8623-94-27 08:19:00* Test Item Value Reference Range Interpretation Comments Glucose Level (test code = HYJ6480) 92 74-118 [facility] CenterCalcium Chtnr3882-42-61 08:19:00* Test Item Value Reference Range Interpretation Comments Calcium Level (test code = 89674-7) 9.0 8.4-10.2 [facility] Friscoodium Oxucs8768-47-80 08:19:00* Test Item Value Reference Range Interpretation Comments Sodium Level (test code = 2951-2) 138 136-145 [facility] CenterPotassium Bejnn3811-21-80 08:19:00* Test Item Value Reference Range Interpretation Comments Potassium Level (test code = 2823-3) 3.3 3.5-5.1 L [facility] CenterChloride Wfwwi7957-80-10 08:19:00* Test Item Value Reference Range Interpretation Comments Chloride Level (test code = 2075-0) 107 98-107 [facility] CenterCarbon Dioxide Ioifg5743-95-92 08:19:00* Test Item Value Reference Range Interpretation Comments Carbon Dioxide Level (test code = 2028-9) 22 22-29 [facility] CenterAnion Rvi6952-54-79 08:19:00* Test Item Value Reference Range Interpretation Comments Anion Gap (test code = 42122-0) 12.3 8-16 [facility] CenterBlood Urea Mjzdomdh1559-81-52 08:19:00* Test Item Value Reference Range Interpretation Comments Blood Urea Nitrogen (test code = 3094-0) < 5 7-26 L [facility] CenterCreatinine2019-11-14 08:19:00* Test Item Value Reference Range Interpretation Comments Creatinine (test code = 2160-0) 1.20 0.72-1.25 [facility] CenterBUN/Creatinine Sklte5645-05-15 08:19:00* Test Item Value Reference Range Interpretation Comments BUN/Creatinine Ratio (test code = 3097-3) 4 6-25 L [facility] CenterEstimat Glomerular Filtration Rate 2019-03-16 08:19:00* Test Item Value Reference Range Interpretation Comments Estimat Glomerular Filtration Rate (test code = 799815965) > 60 >60 Ranges were taken from the National Kidney Disease Education Program and the [facility] literature.Reference ranges:60 or greater: Xaphno82-85 ( for 3 consecutive months): Chronic kidney disease 15 or less: Kidney failureTitus Regional Medical CenterGlucose Jienm0943-45-54 08:19:00* Test Item Value Reference Range Interpretation Comments Glucose Level (test code = BUX0550) 92 74-118 [facility] CenterCalcium Qvufm8074-37-56 08:19:00* Test Item Value Reference Range Interpretation Comments Calcium Level (test code = 11685-1) 9.0 8.4-10.2 [facility] CenterWhite Blood Gyrci9381-13-23 05:34:00* Test Item Value Reference Range Interpretation Comments White Blood Count (test code = 6690-2) 3.70 4.8-10.8 L [facility] CenterRed Blood Dnfjt7644-76-53 05:34:00* Test Item Value Reference Range Interpretation Comments Red Blood Count (test code = 789-8) 3.06 4.3-5.7 L [facility] CenterHemoglobin2019-11-14 05:34:00* Test Item Value Reference Range Interpretation Comments Hemoglobin (test code = 50381-8) 9.9 14.0-18.0 L [facility] CenterHematocrit2019-11-14 05:34:00* Test Item Value Reference Range Interpretation Comments Hematocrit (test code = 4544-3) 29.2 38.2-49.6 L [facility] CenterMean Corpuscular Axisyw9048-59-48 05:34:00* Test Item Value Reference Range Interpretation Comments Mean Corpuscular Volume (test code = 787-2) 95.4 81-99 [facility] CenterMean Corpuscular Eqsvpuwiup8303-70-01 05:34:00* Test Item Value Reference Range Interpretation Comments Mean Corpuscular Hemoglobin (test code = 785-6) 32.4 28-32 H [facility] CenterMean Corpuscular Hemoglobin Concent 2019-03-16 05:34:00* Test Item Value Reference Range Interpretation Comments Mean Corpuscular Hemoglobin Concent (test code = 786-4) 33.9 31-35 [facility] CenterRed Cell Distribution Wjxzf9090-99-45 05:34:00* Test Item Value Reference Range Interpretation Comments Red Cell Distribution Width (test code = 28938-6) 11.7 11.7 -14.4 [facility] CenterPlatelet Mnfhk1700-12-70 05:34:00* Test Item Value Reference Range Interpretation Comments Platelet Count (test code = 777-3) 174 140-360 [facility] CenterNeutrophils (%) (Auto)2019-03-16 05:34:00 * Test Item Value Reference Range Interpretation Comments Neutrophils (%) (Auto) (test code = 23826-4) 41.6 38.7-80.0 [facility] CenterLymphocytes (%) (Auto)2019-03-16 05:34:00 * Test Item Value Reference Range Interpretation Comments Lymphocytes (%) (Auto) (test code = 736-9) 47.6 18.0-39.1 H [facility] CenterMonocytes (%) (Auto)2019-03-16 05:34:00* Test Item Value Reference Range Interpretation Comments Monocytes (%) (Auto) (test code = 5905-5) 8.4 4.4-11.3 [facility] CenterEosinophils (%) (Auto)2019-03-16 05:34:00 * Test Item Value Reference Range Interpretation Comments Eosinophils (%) (Auto) (test code = 713-8) 1.6 0.0-6.0 [facility] CenterBasophils (%) (Auto)2019-03-16 05:34:00* Test Item Value Reference Range Interpretation Comments Basophils (%) (Auto) (test code = 706-2) 0.3 0.0-1.0 [facility] CenterIM GRANULOCYTES %2019-03-16 05:34:00* Test Item Value Reference Range Interpretation Comments IM GRANULOCYTES % (test code = IM GRANULOCYTES %) 0.5 0.0- 1.0 [facility] CenterNeutrophils # (Auto)2019-03-16 05:34:00* Test Item Value Reference Range Interpretation Comments Neutrophils # (Auto) (test code = 751-8) 1.5 2.1-6.9 L [facility] CenterLymphocytes # (Auto)2019-03-16 05:34:00* Test Item Value Reference Range Interpretation Comments Lymphocytes # (Auto) (test code = 08083-4) 1.8 1.0-3.2 [facility] CenterMonocytes # (Auto)2019-03-16 05:34:00* Test Item Value Reference Range Interpretation Comments Monocytes # (Auto) (test code = 742-7) 0.3 0.2-0.8 [facility] CenterEosinophils # (Auto)2019-03-16 05:34:00* Test Item Value Reference Range Interpretation Comments Eosinophils # (Auto) (test code = 711-2) 0.1 0.0-0.4 [facility] CenterBasophils # (Auto)2019-03-16 05:34:00* Test Item Value Reference Range Interpretation Comments Basophils # (Auto) (test code = 704-7) 0.0 0.0-0.1 [facility] CenterAbsolute Immature Granulocyte (auto 2019-03-16 05:34:00* Test Item Value Reference Range Interpretation Comments Absolute Immature Granulocyte (auto (jourdan t code = Absolute Immature Granulocyte (auto) 0.02 0-0.1 [facility] CenterWhite Blood Oulcp5884-29-76 05:34:00* Test Item Value Reference Range Interpretation Comments White Blood Count (test code = 6690-2) 3.70 4.8-10.8 L [facility] CenterRed Blood Nzhzg9559-40-37 05:34:00* Test Item Value Reference Range Interpretation Comments Red Blood Count (test code = 789-8) 3.06 4.3-5.7 L [facility] CenterHemoglobin2019-11-14 05:34:00* Test Item Value Reference Range Interpretation Comments Hemoglobin (test code = 56815-4) 9.9 14.0-18.0 L [facility] CenterHematocrit2019-11-14 05:34:00* Test Item Value Reference Range Interpretation Comments Hematocrit (test code = 4544-3) 29.2 38.2-49.6 L [facility] CenterMean Corpuscular Ddwfza2889-45-79 05:34:00* Test Item Value Reference Range Interpretation Comments Mean Corpuscular Volume (test code = 787-2) 95.4 81-99 [facility] CenterMean Corpuscular Jjqwwoetxl4360-17-84 05:34:00* Test Item Value Reference Range Interpretation Comments Mean Corpuscular Hemoglobin (test code = 785-6) 32.4 28-32 [facility] 2019-03-16 05:34:00* Test Item Value Reference Range Interpretation Comments Mean Corpuscular Hemoglobin Concent (test code = 786-4) 33.9 31-35 [facility] CenterRed Cell Distribution Rabtr8345-42-61 05:34:00* Test Item Value Reference Range Interpretation Comments Red Cell Distribution Width (test code = 00275-1) 11.7 11.7 -14.4 [facility] CenterPlatelet Ksouj7101-52-73 05:34:00* Test Item Value Reference Range Interpretation Comments Platelet Count (test code = 777-3) 174 140-360 [facility] CenterNeutrophils (%) (Auto)2019-03-16 05:34:00 * Test Item Value Reference Range Interpretation Comments Neutrophils (%) (Auto) (test code = 01146-1) 41.6 38.7-80.0 [facility] CenterLymphocytes (%) (Auto)2019-03-16 05:34:00 * Test Item Value Reference Range Interpretation Comments Lymphocytes (%) (Auto) (test code = 736-9) 47.6 18.0-39.1 H [facility] CenterMonocytes (%) (Auto)2019-03-16 05:34:00* Test Item Value Reference Range Interpretation Comments Monocytes (%) (Auto) (test code = 5905-5) 8.4 4.4-11.3 [facility] CenterEosinophils (%) (Auto)2019-03-16 05:34:00 * Test Item Value Reference Range Interpretation Comments Eosinophils (%) (Auto) (test code = 713-8) 1.6 0.0-6.0 [facility] CenterBasophils (%) (Auto)2019-03-16 05:34:00* Test Item Value Reference Range Interpretation Comments Basophils (%) (Auto) (test code = 706-2) 0.3 0.0-1.0 [facility] CenterIM GRANULOCYTES %2019-03-16 05:34:00* Test Item Value Reference Range Interpretation Comments IM GRANULOCYTES % (test code = IM GRANULOCYTES %) 0.5 0.0- 1.0 [facility] CenterNeutrophils # (Auto)2019-03-16 05:34:00* Test Item Value Reference Range Interpretation Comments Neutrophils # (Auto) (test code = 751-8) 1.5 2.1-6.9 L [facility] CenterLymphocytes # (Auto)2019-03-16 05:34:00* Test Item Value Reference Range Interpretation Comments Lymphocytes # (Auto) (test code = 35323-2) 1.8 1.0-3.2 [facility] CenterMonocytes # (Auto)2019-03-16 05:34:00* Test Item Value Reference Range Interpretation Comments Monocytes # (Auto) (test code = 742-7) 0.3 0.2-0.8 [facility] CenterEosinophils # (Auto)2019-03-16 05:34:00* Test Item Value Reference Range Interpretation Comments Eosinophils # (Auto) (test code = 711-2) 0.1 0.0-0.4 [facility] CenterBasophils # (Auto)2019-03-16 05:34:00* Test Item Value Reference Range Interpretation Comments Basophils # (Auto) (test code = 704-7) 0.0 0.0-0.1 [facility] CenterAbsolute Immature Granulocyte (auto 2019-03-16 05:34:00* Test Item Value Reference Range Interpretation Comments Absolute Immature Granulocyte (auto (jourdan t code = Absolute Immature Granulocyte (auto) 0.02 0-0.1 [facility] CenterFluoroscopic procedure less than one hour dmbkpgnu1076-12-43 04:00:00* Test Item Value Reference Range Interpretation Comments Differential Total Cells Counted (test code = Differclarice tial Total Cells Counted) 100 [facility] CenterManual blood neutrophils/100 leukocytes 2019-03-16 04:00:00* Test Item Value Reference Range Interpretation Comments Neutrophils % (Manual) (test code = 75557-3) 42 40-74 [facility] blood lymphocytes/100 leukocytes 2019-03-16 04:00:00* Test Item Value Reference Range Interpretation Comments Lymphocytes % (Manual) (test code = 737-7) 49 19-48 [facility] leukocytes 2019-03-16 04:00:00* Test Item Value Reference Range Interpretation Comments Monocytes % (Manual) (test code = 744-3) 5 3.4-9.0 [facility] lymphocytes variant count (number/volume)2019-03-16 04:00:00* Test Item Value Reference Range Interpretation Comments Reactive Lymphocytes (test code = 60048-6) 4 [facility] platelets count by estimate (number/volume)2019-03-16 04:00:00* Test Item Value Reference Range Interpretation Comments Platelet Estimate (test code = 01002-5) ADEQUATE [facility] CenterPlatelet bcibezporx9357-35-09 04:00:00* Test Item Value Reference Range Interpretation Comments Platelet Morphology Comment (test code = 86196-8) NORMAL [facility] CenterRB ngsvqvxprb0030-78-58 04:00:00* Test Item Value Reference Range Interpretation Comments Red Cell Morphology Comment (test code = 6742-1) NORMAL [facility] CenterFluoroscopic procedure less than one hour elwrelrv2379-27-02 04:00:00* Test Item Value Reference Range Interpretation Comments Differential Total Cells Counted (test code = Norma tial Total Cells Counted) 100 [facility] blood neutrophils/100 leukocytes 2019-03-16 04:00:00* Test Item Value Reference Range Interpretation Comments Neutrophils % (Manual) (test code = 71433-7) 42 40-74 [facility] blood lymphocytes/100 leukocytes 2019-03-16 04:00:00* Test Item Value Reference Range Interpretation Comments Lymphocytes % (Manual) (test code = 737-7) 49 19-48 [facility] blood monocytes/100 leukocytes 2019-03-16 04:00:00* Test Item Value Reference Range Interpretation Comments Monocytes % (Manual) (test code = 744-3) 5 3.4-9.0 [facility] lymphocytes variant count (number/volume)2019-03-16 04:00:00* Test Item Value Reference Range Interpretation Comments Reactive Lymphocytes (test code = 93639-3) 4 [facility] platelets count by estimate (number/volume)2019-03-16 04:00:00* Test Item Value Reference Range Interpretation Comments Platelet Estimate (test code = 37584-6) ADEQUATE [facility] CenterPlatelet xcqbkvbrvm0796-40-30 04:00:00* Test Item Value Reference Range Interpretation Comments Platelet Morphology Comment (test code = 72929-6) NORMAL [facility] exxnhjdynd5864-83-98 04:00:00* Test Item Value Reference Range Interpretation Comments Red Cell Morphology Comment (test code = 6742-1) NORMAL [facility] CenterFluoroscopic procedure less than one hour jcqrzotl5513-43-33 04:00:00* Test Item Value Reference Range Interpretation Comments Differential Total Cells Counted (test code = Differclarice tial Total Cells Counted) 100 [facility] blood neutrophils/100 leukocytes 2019-03-16 04:00:00* Test Item Value Reference Range Interpretation Comments Neutrophils % (Manual) (test code = 45752-4) 42 40-74 [facility] blood lymphocytes/100 leukocytes 2019-03-16 04:00:00* Test Item Value Reference Range Interpretation Comments Lymphocytes % (Manual) (test code = 737-7) 49 19-48 [facility] blood monocytes/100 leukocytes 2019-03-16 04:00:00* Test Item Value Reference Range Interpretation Comments Monocytes % (Manual) (test code = 744-3) 5 3.4-9.0 [facility] lymphocytes variant count (number/volume)2019-03-16 04:00:00* Test Item Value Reference Range Interpretation Comments Reactive Lymphocytes (test code = 82230-2) 4 [facility] CenterBlood platelets count by estimate (number/volume)2019-03-16 04:00:00* Test Item Value Reference Range Interpretation Comments Platelet Estimate (test code = 90943-9) ADEQUATE [facility] CenterPlatelet qdldtpxfjy3143-27-91 04:00:00* Test Item Value Reference Range Interpretation Comments Platelet Morphology Comment (test code = 41760-5) NORMAL [facility] puoezykita4330-14-80 04:00:00* Test Item Value Reference Range Interpretation Comments Red Cell Morphology Comment (test code = 6742-1) NORMAL [facility] CenterVitamin B12 Eezsj5927-20-38 21:54:00* Test Item Value Reference Range Interpretation Comments Vitamin B12 Level (test code = 69432-2) 605 213-816 [facility] CenterVitamin B12 Yhbrc5512-04-39 21:54:00* Test Item Value Reference Range Interpretation Comments Vitamin B12 Level (test code = 30922-6) 605 213-816 [facility] CenterVitamin B12 Qqzhr4026-71-88 21:54:00* Test Item Value Reference Range Interpretation Comments Vitamin B12 Level (test code = 01931-3) 605 213-816 [facility] CenterFerritin2019-11-13 21:44:00* Test Item Value Reference Range Interpretation Comments Ferritin (test code = 2276-4) 387.29 21.81-274.66 H [facility] CenterThyroid Stimulating Hormone (TSH) 2019-03-15 21:44:00* Test Item Value Reference Range Interpretation Comments Thyroid Stimulating Hormone (TSH) (test code = 40506-1) 2.573 0.350-4.940 [facility] CenterFerritin2019-11-13 21:44:00* Test Item Value Reference Range Interpretation Comments Ferritin (test code = 2276-4) 387.29 21.81-274.66 H [facility] CenterThyroid Stimulating Hormone (TSH) 2019-03-15 21:44:00* Test Item Value Reference Range Interpretation Comments Thyroid Stimulating Hormone (TSH) (test code = 13807-9) 2.573 0.350-4.940 [facility] CenterFerritin2019-11-13 21:44:00* Test Item Value Reference Range Interpretation Comments Ferritin (test code = 2276-4) 387.29 21.81-274.66 H [facility] CenterThyroid Stimulating Hormone (TSH) 2019-03-15 21:44:00* Test Item Value Reference Range Interpretation Comments Thyroid Stimulating Hormone (TSH) (test code = 26343-5) 2.573 0.350-4.940 [facility] CenterErythrocyte Sedimentation Gknw4944-23-77 21:33:00* Test Item Value Reference Range Interpretation Comments Erythrocyte Sedimentation Rate (test code = 4537-7) 62 0- 13 H [facility] CenterErythrocyte Sedimentation Ipoq1141-72-81 21:33:00* Test Item Value Reference Range Interpretation Comments Erythrocyte Sedimentation Rate (test code = 4537-7) 62 0- 13 H [facility] CenterErythrocyte Sedimentation Amzn2902-71-14 21:33:00* Test Item Value Reference Range Interpretation Comments Erythrocyte Sedimentation Rate (test code = 4537-7) 62 0- 13 H [facility] CenterIron Zfjzy1445-79-60 21:22:00* Test Item Value Reference Range Interpretation Comments Iron Level (test code = 2498-4) 69 65-175 [facility] CenterTotal Iron Binding Dygfrlks1708-39-40 21:22:00* Test Item Value Reference Range Interpretation Comments Total Iron Binding Capacity (test code = 2500-7) 256 261-4 78 L [facility] CenterPercent Iron Vrakyxypbx1919-10-43 21:22:00* Test Item Value Reference Range Interpretation Comments Percent Iron Saturation (test code = 2502-3) 27 15-50 [facility] CenterTransferrin2019-11-13 21:22:00* Test Item Value Reference Range Interpretation Comments Transferrin (test code = 3034-6) 183 174-364 [facility] CenterAmylase Dhxic7322-20-33 21:22:00* Test Item Value Reference Range Interpretation Comments Amylase Level (test code = 1798-8) 68 25-125 [facility] CenterLipase2019-11-13 21:22:00* Test Item Value Reference Range Interpretation Comments Lipase (test code = 3040-3) 14 8-78 [facility] CenterIron Obvov8365-49-62 21:22:00* Test Item Value Reference Range Interpretation Comments Iron Level (test code = 2498-4) 69 65-175 [facility] CenterTotal Iron Binding Wxiywfke2035-80-76 21:22:00* Test Item Value Reference Range Interpretation Comments Total Iron Binding Capacity (test code = 2500-7) 256 261-4 78 L [facility] CenterPercent Iron Ndauetjtdg5694-85-59 21:22:00* Test Item Value Reference Range Interpretation Comments Percent Iron Saturation (test code = 2502-3) 27 15-50 [facility] CenterTransferrin2019-11-13 21:22:00* Test Item Value Reference Range Interpretation Comments Transferrin (test code = 3034-6) 183 174-364 [facility] CenterAmylase Dsnlx6155-69-36 21:22:00* Test Item Value Reference Range Interpretation Comments Amylase Level (test code = 1798-8) 68 25-125 [facility] CenterLipase2019-11-13 21:22:00* Test Item Value Reference Range Interpretation Comments Lipase (test code = 3040-3) 14 8-78 [facility] CenterIron Apynw8229-53-79 21:22:00* Test Item Value Reference Range Interpretation Comments Iron Level (test code = 2498-4) 69 65-175 [facility] CenterTotal Iron Binding Cbwlslhx0693-49-79 21:22:00* Test Item Value Reference Range Interpretation Comments Total Iron Binding Capacity (test code = 2500-7) 256 261-4 78 L [facility] CenterPermer[facility] Iron Ngfwbqpqrm1963-53-51 21:22:00* Test Item Value Reference Range Interpretation Comments Percent Iron Saturation (test code = 2502-3) 27 15-50 [facility] CenterTransferrin2019-11-13 21:22:00* Test Item Value Reference Range Interpretation Comments Transferrin (test code = 3034-6) 183 174-364 [facility] CenterPercent Reticulocyte Kbnth4121-15-40 21:04:00* Test Item Value Reference Range Interpretation Comments Percent Reticulocyte Count (test code = 01592-9) 1.3 0.8-2 .2 [facility] CenterPermercy [facility] Reticulocyte Rzwyh1815-79-44 21:04:00* Test Item Value Reference Range Interpretation Comments Percent Reticulocyte Count (test code = 83377-9) 1.3 0.8-2 .2 [facility] CenterPermercy [facility] hospital Reticulocyte Jtfod8583-80-03 21:04:00* Test Item Value Reference Range Interpretation Comments Percent Reticulocyte Count (test code = 92683-7) 1.3 0.8-2 .2 [facility] CenterErythrocyte sedimentation rate by Westergren wigcpt9208-75-78 19:20:00* Test Item Value Reference Range Interpretation Comments Erythrocyte Sedimentation Rate (test code = 4537-7) 62 0- 13 [facility] CenterAutomated reticulocyte count as percentage of total injuqwzchhiu4429-21-92 19:20:00* Test Item Value Reference Range Interpretation Comments Percent Reticulocyte Count (test code = 08615-1) 1.3 0.8-2 .2 [facility]iscoerum or plasma iron measurement (mass/volume)2019-03-15 19:20:00* Test Item Value Reference Range Interpretation Comments Iron Level (test code = 2498-4) 69 65-175 [facility] Friscoerum or plasma iron binding capacity measurement (mass/volume)2019-03-15 19:20:00* Test Item Value Reference Range Interpretation Comments Total Iron Binding Capacity (test code = 2500-7) 256 261-4 78 [facility] Friscoerum or plasma iron saturation measurement (mass fraction)2019-03-15 19:20:00* Test Item Value Reference Range Interpretation Comments Percent Iron Saturation (test code = 2502-3) 27 15-50 [facility] Friscoerum or plasma transferrin measurement (mass/volume)2019-03-15 19:20:00* Test Item Value Reference Range Interpretation Comments Transferrin (test code = 3034-6) 183 174-364 [facility] Friscoerum or plasma ferritin measurement (mass/volume)2019-03-15 19:20:00* Test Item Value Reference Range Interpretation Comments Ferritin (test code = 2276-4) 387.29 21.81-274.66 [facility] CenterBlood cobalamin (vitamin B12) measurement (mass/volume)2019-03-15 19:20:00* Test Item Value Reference Range Interpretation Comments Vitamin B12 Level (test code = 73402-6) 607 213-166 [facility] Friscoerum or plasma thyrotropin measurement by detection limit <= 0.005 miu/l (units/volume)2019-03-15 19:20:00* Test Item Value Reference Range Interpretation Comments Thyroid Stimulating Hormone (TSH) (test code = 45419-8) 2.573 0.350-4.940 [facility] CenterBlood folate measurement (mass/volume) 2019-03-15 19:20:00* Test Item Value Reference Range Interpretation Comments RBC Folate Hemolysate (test code = 2282-2) 268.2 Not Estab. [facility] CenterAutomated blood hematocrit (volume fraction)2019-03-15 19:20:00* Test Item Value Reference Range Interpretation Comments Hematocrit (test code = 4544-3) 29.1 37.5-51.0 [facility] CenterErythrocyte folate measurement (mass/volume)2019-03-15 19:20:00* Test Item Value Reference Range Interpretation Comments Red Blood Cell Folate (test code = 2283-0) 922 >498 Performed at: [facility] [id number] Director: Alejo Malin MD, Phone: [phone] Scott and White Medical Center – Friscoerum tissue transglutaminase IgA antibody dgadbhaow7992-67-42 19:20:00* Test Item Value Reference Range Interpretation Comments Tissue Transglutaminase IgA Ab (test code = 61352-9) <2 0 -3 Negative 0 - 3 Weak Positive 4 - 10 Positive >10 Tissue Transglutaminase (tTG) has been identified as the endomysial antigen. Studies have demonstr- ated that endomysial IgA antibodies have over 99% specif icity for gluten sensitive enteropathy.[facility] Serum or plasma IgA measurement (mass/volume)2019-03-15 19:20:00* Test Item Value Reference Range Interpretation Comments Immunoglobulin A (test code = 2458-8) 150 90-386 Performed at: [employer] [id number] Computational Theory Scientist: Lai Olson MD, Phone: [phone] at: [facility] [id number] Director: Alejo Malin MD, Ph one: [phone] Scott and White Medical Center – Friscoerum endomysium IgA antibody rkjdqeoxj5239-56-17 19:20:00* Test Item Value Reference Range Interpretation Comments Endomysial IgA Antibody (test code = 71183-1) Negative Negative [facility] Friscoerum or plasma C reactive protein measurement (mass/volume)2019-03-15 19:20:00* Test Item Value Reference Range Interpretation Comments C-Reactive Protein (test code = 1988-5) 3 0-10 Performed at: - [facility] [id number] Director: Alejo Malin MD, Phone: [phone] Regional Medical CenterErythrocyte sedimentation rate by Westergren iejgnm2118-59-23 19:20:00* Test Item Value Reference Range Interpretation Comments Erythrocyte Sedimentation Rate (test code = 4537-7) 62 0- 13 [facility] CenterAutomated reticulocyte count as percentage of total wjntufwnoprx6779-12-60 19:20:00* Test Item Value Reference Range Interpretation Comments Percent Reticulocyte Count (test code = 14511-0) 1.3 0.8-2 .2 [facility] Friscoerum or plasma iron measurement (mass/volume)2019-03-15 19:20:00* Test Item Value Reference Range Interpretation Comments Iron Level (test code = 2498-4) 69 65-175 [facility] Friscoerum or plasma iron binding capacity measurement (mass/volume)2019-03-15 19:20:00* Test Item Value Reference Range Interpretation Comments Total Iron Binding Capacity (test code = 2500-7) 256 261-4 78 [facility] Friscoerum or plasma iron saturation measurement (mass fraction)2019-03-15 19:20:00* Test Item Value Reference Range Interpretation Comments Percent Iron Saturation (test code = 2502-3) 27 15-50 [facility] Friscoerum or plasma transferrin measurement (mass/volume)2019-03-15 19:20:00* Test Item Value Reference Range Interpretation Comments Transferrin (test code = 3034-6) 183 174-[address] [facility] CenterSerum or plasma ferritin measurement (mass/volume)2019-03-15 19:20:00* Test Item Value Reference Range Interpretation Comments Ferritin (test code = 2276-4) 387.29 21.81-274.66 [facility] CenterBlood cobalamin (vitamin B12) measurement (mass/volume)2019-03-15 19:20:00* Test Item Value Reference Range Interpretation Comments Vitamin B12 Level (test code = 77159-0) 609 213-816 [facility] Friscoerum or plasma thyrotropin measurement by detection limit <= 0.005 miu/l (units/volume)2019-03-15 19:20:00* Test Item Value Reference Range Interpretation Comments Thyroid Stimulating Hormone (TSH) (test code = 80729-7) 2.573 0.350-4.940 [facility] CenterBlood folate measurement (mass/volume) 2019-03-15 19:20:00* Test Item Value Reference Range Interpretation Comments RBC Folate Hemolysate (test code = 2282-2) 268.2 Not Estab. [facility] CenterAutomated blood hematocrit (volume fraction)2019-03-15 19:20:00* Test Item Value Reference Range Interpretation Comments Hematocrit (test code = 4544-3) 29.1 37.5-51.0 [facility] CenterErythrocyte folate measurement (mass/volume)2019-03-15 19:20:00* Test Item Value Reference Range Interpretation Comments Red Blood Cell Folate (test code = 2283-0) 922 >498 Performed at: [facility] [id number] Director: Alejo Malin MD, Phone: [phone] Scott and White [facility] Center – Friscoerum tissue transglutaminase IgA antibody bzqblmybr7549-52-89 19:20:00* Test Item Value Reference Range Interpretation Comments Tissue Transglutaminase IgA Ab (test code = 43276-5) <2 0 -3 Negative 0 - 3 Weak Positive 4 - 10 Positive >10 Tissue Transglutaminase (tTG) has been identified as the endomysial antigen. Studies have demonstr- ated that endomysial IgA antibodies have over 99% specif icity for gluten sensitive enteropathy.[facility] Serum or plasma IgA measurement (mass/volume)2019-03-15 19:20:00* Test Item Value Reference Range Interpretation Comments Immunoglobulin A (test code = 2458-8) 150 90-386 Performed at: [facility] [id number] Computational Theory Scientist: Lai Olson MD, Phone: [phone] at: [facility] [id number] Director: Alejo Malin MD, Ph one: [phone] Scott and White Medical Center – Friscoerum endomysium IgA antibody aasfdgfjy6454-83-70 19:20:00* Test Item Value Reference Range Interpretation Comments Endomysial IgA Antibody (test code = 42877-3) Negative Negative [facility] Friscoerum or plasma C reactive protein measurement (mass/volume)2019-03-15 19:20:00* Test Item Value Reference Range Interpretation Comments C-Reactive Protein (test code = 1988-5) 3 0-10 Performed at: [facility] [id number] Director: Alejo Malin MD, Phone: [phone] Regional Medical CenterErythrocyte sedimentation rate by Westergren bamqdg8812-18-64 19:20:00* Test Item Value Reference Range Interpretation Comments Erythrocyte Sedimentation Rate (test code = 4537-7) 62 0- 13 [facility] CenterAutomated reticulocyte count as percentage of total xelmrqgtvccz0920-02-96 19:20:00* Test Item Value Reference Range Interpretation Comments Percent Reticulocyte Count (test code = 47463-6) 1.3 0.8-2 .2 [facility]iscoerum or plasma iron measurement (mass/volume)2019-03-15 19:20:00* Test Item Value Reference Range Interpretation Comments Iron Level (test code = 2498-4) 69 65-175 [facility] Friscoerum or plasma iron binding capacity measurement (mass/volume)2019-03-15 19:20:00* Test Item Value Reference Range Interpretation Comments Total Iron Binding Capacity (test code = 2500-7) 256 261-4 78 [facility] Friscoerum or plasma iron saturation measurement (mass fraction)2019-03-15 19:20:00* Test Item Value Reference Range Interpretation Comments Percent Iron Saturation (test code = 2502-3) 27 15-50 [facility]iscoerum or plasma transferrin measurement (mass/volume)2019-03-15 19:20:00* Test Item Value Reference Range Interpretation Comments Transferrin (test code = 3034-6) 183 174-364 [facility] Friscoerum or plasma ferritin measurement (mass/volume)2019-03-15 19:20:00* Test Item Value Reference Range Interpretation Comments Ferritin (test code = 2276-4) 387.29 21.81-274.66 [facility] CenterBlood cobalamin (vitamin B12) measurement (mass/volume)2019-03-15 19:20:00* Test Item Value Reference Range Interpretation Comments Vitamin B12 Level (test code = 21984-7) 605 213816 [facility] Friscoerum or plasma thyrotropin measurement by detection limit <= 0.005 miu/l (units/volume)2019-03-15 19:20:00* Test Item Value Reference Range Interpretation Comments Thyroid Stimulating Hormone (TSH) (test code = 22933-3) 2.573 0.350-4.940 [facility] CenterBlood folate measurement (mass/volume) 2019-03-15 19:20:00* Test Item Value Reference Range Interpretation Comments RBC Folate Hemolysate (test code = 2282-2) 268.2 Not Estab. [facility] CenterAutomated blood hematocrit (volume fraction)2019-03-15 19:20:00* Test Item Value Reference Range Interpretation Comments Hematocrit (test code = 4544-3) 29.1 37.5-51.0 [facility] CenterErythrocyte folate measurement (mass/volume)2019-03-15 19:20:00* Test Item Value Reference Range Interpretation Comments Red Blood Cell Folate (test code = 2283-0) 922 >498 Performed at: - [facility] [id number] Director: Alejo Malin MD, Phone: [phone] Scott and White Medical Center – Friscoerum tissue transglutaminase IgA antibody ywhnrdqoz6284-70-84 19:20:00* Test Item Value Reference Range Interpretation Comments Tissue Transglutaminase IgA Ab (test code = 75043-3) <2 0 -3 Negative 0 - 3 Weak Positive 4 - 10 Positive >10 Tissue Transglutaminase (tTG) has been identified as the endomysial antigen. Studies have demonstr- ated that endomysial IgA antibodies have over 99% specif icity for gluten sensitive enteropathy.[facility] Serum or plasma IgA measurement (mass/volume)2019-03-15 19:20:00* Test Item Value Reference Range Interpretation Comments Immunoglobulin A (test code = 2458-8) 150 90-386 Performed at: [facility] [id number] Computational Theory Scientist: Lai Olson MD, Phone: [phone] at: [facility] [id number] Director: Alejo Malin MD, Ph one: [phone] Scott and White Medical Center – Friscoerum endomysium IgA antibody pxyhugclp1163-74-34 19:20:00* Test Item Value Reference Range Interpretation Comments Endomysial IgA Antibody (test code = 92315-0) Negative Negative [facility] Friscoerum or plasma C reactive protein measurement (mass/volume)2019-03-15 19:20:00* Test Item Value Reference Range Interpretation Comments C-Reactive Protein (test code = 1988-5) 3 0-10 Performed at: [facility] [id number] Director: Alejo Malin MD, Phone: [phone] Regional Medical CenterTotal Iecmfypqo2831-83-30 12:59:00* Test Item Value Reference Range Interpretation Comments Total Bilirubin (test code = 1975-2) 0.4 0.2-1.2 [facility] CenterAspartate Amino Transf (AST/SGOT) 2019-03-14 12:59:00* Test Item Value Reference Range Interpretation Comments Aspartate Amino Transf (AST/SGOT) (test code = Aspartate Amino Transf (AST/SGOT)) 25 5-34 [facility] CenterAlanine Aminotransferase (ALT/SGPT) 2019-03-14 12:59:00* Test Item Value Reference Range Interpretation Comments Alanine Aminotransferase (ALT/SGPT) (test code = 1742-6) 24 0-55 [facility] CenterTotal Xecsmja6460-20-62 12:59:00* Test Item Value Reference Range Interpretation Comments Total Protein (test code = 2885-2) 7.2 6.5-8.1 [facility] CenterAlbumin2019-11-12 12:59:00* Test Item Value Reference Range Interpretation Comments Albumin (test code = 1751-7) 3.5 3.5-5.0 [facility] CenterGlobulin2019-11-12 12:59:00* Test Item Value Reference Range Interpretation Comments Globulin (test code = 15977-0) 3.7 2.3-3.5 H [facility] CenterAlbumin/Globulin Mplzu2314-17-08 12:59:00 * Test Item Value Reference Range Interpretation Comments Albumin/Globulin Ratio (test code = 1759-0) 0.9 0.8-2.0 [facility] CenterAlkaline Ucnxsbkjian1559-39-90 12:59:00* Test Item Value Reference Range Interpretation Comments Alkaline Phosphatase (test code = 6768-6) 69 40-150 [facility] CenterTotal Smrhpbuwn2118-51-64 12:59:00* Test Item Value Reference Range Interpretation Comments Total Bilirubin (test code = 1975-2) 0.4 0.2-1.2 [facility] CenterAspartate Amino Transf (AST/SGOT) 2019-03-14 12:59:00* Test Item Value Reference Range Interpretation Comments Aspartate Amino Transf (AST/SGOT) (test code = Aspartate Amino Transf (AST/SGOT)) 25 5-34 [facility] CenterAlanine Aminotransferase (ALT/SGPT) 2019-03-14 12:59:00* Test Item Value Reference Range Interpretation Comments Alanine Aminotransferase (ALT/SGPT) (test code = 1742-6) 24 0-55 [facility] CenterTotal Kydscgi7201-68-57 12:59:00* Test Item Value Reference Range Interpretation Comments Total Protein (test code = 2885-2) 7.2 6.5-8.1 [facility] CenterAlbumin2019-11-12 12:59:00* Test Item Value Reference Range Interpretation Comments Albumin (test code = 1751-7) 3.5 3.5-5.0 [facility] CenterGlobulin2019-11-12 12:59:00* Test Item Value Reference Range Interpretation Comments Globulin (test code = 70987-7) 3.7 2.3-3.5 H [facility] CenterAlbumin/Globulin Irscw4296-88-48 12:59:00 * Test Item Value Reference Range Interpretation Comments Albumin/Globulin Ratio (test code = 1759-0) 0.9 0.8-2.0 [facility] CenterAlkaline Gzolnylwboh8170-02-98 12:59:00* Test Item Value Reference Range Interpretation Comments Alkaline Phosphatase (test code = 6768-6) 69 40-150 [facility] CenterCT ABDOMEN/PELVIS DQ9745-91-25 12:24:00 [place] [address] Patient Name: QUYEN KIM MR #: [id number] : 1980 Age/Sex: 38/M Req #: [id number] Adm Physician: Ordered by: WESLY SPICER DO Report #: [id number] Location: ER Room/Bed: Procedure: [id number] CT/CT ABDOMEN/PELVIS WO Exam Date: 03/14/19 Exam [...] (Manual) (test code = 714-6) 3 0-7 [facility] CenterMetamyelocytes %2019-03-13 21:32:00* Test Item Value Reference Range Interpretation Comments Metamyelocytes % (test code = 740-1) 1 0-0 H [facility] CenterAnisocytosis2019-11-11 21:32:00* Test Item Value Reference Range Interpretation Comments Anisocytosis (test code = 702-1) SLIGHT [facility] CenterHowell[facility] Kfafnu6446-89-33 21:32:00* Test Item Value Reference Range Interpretation Comments [place] Bodies (test code = 7793-3) FEW [facility] CenterEosinophils % (Manual)2019-03-13 21:32:00 * Test Item Value Reference Range Interpretation Comments Eosinophils % (Manual) (test code = 714-6) 3 0-7 [facility] CenterMetamyelocytes %2019-03-13 21:32:00* Test Item Value Reference Range Interpretation Comments Metamyelocytes % (test code = 740-1) 1 0-0 H [facility] CenterAnisocytosis2019-11-11 21:32:00* Test Item Value Reference Range Interpretation Comments Anisocytosis (test code = 702-1) SLIGHT [facility] CenterHow[facility] Bxgagy3351-39-74 21:32:00* Test Item Value Reference Range Interpretation Comments [place] Bodies (test code = 7793-3) [facility] ([facility])2019-03-13 21:32:00 * Test Item Value Reference Range Interpretation Comments Eosinophils % (Manual) (test code = 714-6) 3 0-7 [facility] CenterMetamyelocytes %2019-03-13 21:32:00* Test Item Value Reference Range Interpretation Comments Metamyelocytes % (test code = 740-1) 1 0-0 H [facility] CenterAnisocytosis2019-11-11 21:32:00* Test Item Value Reference Range Interpretation Comments Anisocytosis (test code = 702-1) SLIGHT [facility] Uwnyrn8885-05-54 21:32:00* Test Item Value Reference Range Interpretation Comments [place] Bodies (test code = 7793-3) [facility] CenterUrine EIF4958-10-41 16:21:00* Test Item Value Reference Range Interpretation Comments Urine WBC (test code = 5821-4) NONE 0-5 [facility] CenterUrine SVW1985-04-59 16:21:00* Test Item Value Reference Range Interpretation Comments Urine RBC (test code = 59845-3) 6-10 0-5 H [facility] CenterUrine Distmlma9289-88-83 16:21:00* Test Item Value Reference Range Interpretation Comments Urine Bacteria (test code = 47558-8) NONE NONE [facility] CenterUrine Epithelial Gmpoz9362-06-49 16:21:00 * Test Item Value Reference Range Interpretation Comments Urine Epithelial Cells (test code = 09135-5) NONE NONE [facility] Calcium Carbonate Crystals 2019-03-13 16:21:00* Test Item Value Reference Range Interpretation Comments Urine Calcium Carbonate Crystals (test code = 5773-7) MANY NONE H [facility] JHA0148-56-67 16:21:00* Test Item Value Reference Range Interpretation Comments Urine WBC (test code = 5821-4) NONE 0-5 [facility] SHI9517-32-37 16:21:00* Test Item Value Reference Range Interpretation Comments Urine RBC (test code = 76398-2) 6-10 0-5 H [facility] CenterUrine Vmdkvhlz2948-27-03 16:21:00* Test Item Value Reference Range Interpretation Comments Urine Bacteria (test code = 27749-8) NONE NONE [facility] CenterUrine Epithelial Zhzbg2186-89-81 16:21:00 * Test Item Value Reference Range Interpretation Comments Urine Epithelial Cells (test code = 30196-0) NONE NONE [facility] Calcium Carbonate Crystals 2019-03-13 16:21:00* Test Item Value Reference Range Interpretation Comments Urine Calcium Carbonate Crystals (test code = 5773-7) MANY NONE H [facility] EIZ1943-61-30 16:21:00* Test Item Value Reference Range Interpretation Comments Urine WBC (test code = 5821-4) NONE 0-5 [facility] GMI4342-97-29 16:21:00* Test Item Value Reference Range Interpretation Comments Urine RBC (test code = 21335-0) 6-10 0-5 H [facility] Roeetrqr8579-77-21 16:21:00* Test Item Value Reference Range Interpretation Comments Urine Bacteria (test code = 41242-6) [facility]ONE [facility] Aicnz2656-14-05 16:21:00 * Test Item Value Reference Range Interpretation Comments Urine Epithelial Cells (test code = 87439-1) NONE NONE [facility] CenterUrine Calcium Carbonate Crystals 2019-03-13 16:21:00* Test Item Value Reference Range Interpretation Comments Urine Calcium Carbonate Crystals (test code = 5773-7) MANY NONE H [facility] CenterUrine Calcium Carbonate Crystals 2019-03-13 16:21:00* Test Item Value Reference Range Interpretation Comments Urine Calcium Carbonate Crystals (test code = 5773-7) MANY NONE [facility] Z9421-05-49 16:17:00 [place] [address] Patient Name: QUYEN KIM MR #: [id number] : 1980 Age/Sex: 38/M Req #: [id number] Adm Physician: Ordered by: MARISOL ALBERT, PAULINE ALBERT Report #: [id number] Location: Room/Bed: Procedure: [id number] C T/CT ABDOMEN/PELVIS W Exam Date: 03/13/19 [...] :27 PM Dictated By: WESLY SOLORIO MD [id number] Transcribed By: JEANNE on 03/13/19 8124 COPY TO : PAULINE DAMON Urine Opiates Woxryd6992-97-89 16:13:00* Test Item Value Reference Range Interpretation Comments Urine Opiates Screen (test code = 49552-1) POSITIVE NEGATIVE H ALL TESTS PERFORMED MANUALLY ON [place] TOX/SEE TEST This test provides only a sc reen. Positive results should be repeated by a confirmatory test.[facility] CenterUrine Barbiturates Pucgip9049-79-57 16:13:00* Test Item Value Reference Range Interpretation Comments Urine Barbiturates Screen (test code = 132974870) NEGATIVE NEGA TIVE [facility] CenterUrine Phencyclidine Mdapmr3607-36-91 16:13:00* Test Item Value Reference Range Interpretation Comments Urine Phencyclidine Screen (test code = 29210-0) NEGATIVE NEGAT ANGY [facility] CenterUrine Amphetamines Tpajil3183-12-42 16:13:00* Test Item Value Reference Range Interpretation Comments Urine Amphetamines Screen (test code = 97455-1) NEGATIVE NEGATI VE [facility] CenterU[facility] Methamphetamines Xrtfnz4296-64-74 16:13:00* Test Item Value Reference Range Interpretation Comments Urine Methamphetamines Screen (test code = Urine Metha mphetamines Screen) NEGATIVE NEGATIVE [facility] CenterU[facility] Benzodiazepines Mjajae7249-88-84 16:13:00* Test Item Value Reference Range Interpretation Comments Urine Benzodiazepines Screen (test code = 17148-2) NEGATIVE NEG ATIVE [facility] CenterUrine Cocaine Pvgwkm0361-78-92 16:13:00* Test Item Value Reference Range Interpretation Comments Urine Cocaine Screen (test code = 3398-5) NEGATIVE NEGATIVE [facility] CenterUrine Cannabinoids Kuhufn0490-22-14 16:13:00* Test Item Value Reference Range Interpretation Comments Urine Cannabinoids Screen (test code = 70769-3) POSITIVE NEGATI VE H THESE RESULTS ARE FOR MEDICAL TREATMENT ONLYTHIS REPORT CONTAINS UNCONFIR MED SCREENING RESULTS*POSITIVE RESULTS WILL BE CONFIRMED BY REFERENCE LAB UPON R EQUEST CUT-OFFDRUG CLASS CONCENTRATION ng/mLAmphetamines 1000Methamphetamines 1000Cocaine 300Opiate 300Phencyc lidine 25Cannabinoid 50Barbiturates 300Benzodiazepine 300Methadone 300 This test p rovides only a screen. Positive results should be repeated by a confirmatory jourdan t.[facility] CenterUrine Methadone Qjajzu7225-83-08 16:13:00* Test Item Value Reference Range Interpretation Comments Urine Methadone Screen (test code = 57667-0) NEGATIVE NEGATIVE THESE RESULTS ARE FOR MEDICAL TREATMENT ONLYTHIS REPORT CONTAINS UNCONFIR MED SCREENING RESULTS*POSITIVE RESULTS WILL BE CONFIRMED BY REFERENCE LAB UPON R EQUEST CUT-OFFDRUG CLASS CONCENTRATION ng/mLAmphetamines 1000Methamphetamines 1000Cocaine Metabolite 300Opiate 300Phencyc lidine 25Cannabinoid 50Barbiturates 300Benzodiazepine 300Methadone 300[facility] Dxvhya7846-96-36 16:13:00* Test Item Value Reference Range Interpretation Comments Urine Opiates Screen (test code = 70865-0) POSITIVE NEGATIVE H ALL TESTS PERFORMED MANUALLY ON [place] TOX/SEE TEST This test provides only a sc reen. Positive results should be repeated by a confirmatory test.[facility] CenterUrine Barbiturates Mlhhqa2425-91-86 16:13:00* Test Item Value Reference Range Interpretation Comments Urine Barbiturates Screen (test code = 138782922) NEGATIVE NEGA TIVE [facility] CenterU[facility] Phencyclidine Bhmsuq7267-66-29 16:13:00* Test Item Value Reference Range Interpretation Comments Urine Phencyclidine Screen (test code = 07368-5) NEGATIVE NEGAT ANGY [facility] CenterUrine Amphetamines Hqnfdh2376-84-18 16:13:00* Test Item Value Reference Range Interpretation Comments Urine Amphetamines Screen (test code = 52360-0) NEGATIVE NEGATI VE [facility] CenterU[facility] Methamphetamines Kqipmx1258-83-24 16:13:00* Test Item Value Reference Range Interpretation Comments Urine Methamphetamines Screen (test code = Urine Metha mphetamines Screen) NEGATIVE NEGATIVE [facility] CenterU[facility] Benzodiazepines Xahghd6996-37-70 16:13:00* Test Item Value Reference Range Interpretation Comments Urine Benzodiazepines Screen (test code = 68118-5) NEGATIVE NEG ATIVE [facility] CenterU[facility] Cocaine Xvnfcg1321-95-43 16:13:00* Test Item Value Reference Range Interpretation Comments Urine Cocaine Screen (test code = 3398-5) NEGATIVE NEGATIVE [facility] CenterU[facility] Cannabinoids Ezehhd1983-50-07 16:13:00* Test Item Value Reference Range Interpretation Comments Urine Cannabinoids Screen (test code = 61635-4) POSITIVE NEGATI VE H THESE RESULTS ARE FOR MEDICAL TREATMENT ONLYTHIS REPORT CONTAINS UNCONFIR MED SCREENING RESULTS*POSITIVE RESULTS WILL BE CONFIRMED BY REFERENCE LAB UPON R EQUEST CUT-OFFDRUG CLASS CONCENTRATION ng/mLAmphetamines 1000Methamphetamines 1000Cocaine 300Opiate 300Phencyc lidine 25Cannabinoid 50Barbiturates 300Benzodiazepine 300Methadone 300 This test p rovides only a screen. Positive results should be repeated by a confirmatory jourdan t.[facility] CenterUrine Methadone Rmzetf4102-72-78 16:13:00* Test Item Value Reference Range Interpretation Comments Urine Methadone Screen (test code = 75794-2) NEGATIVE NEGATIVE THESE RESULTS ARE FOR MEDICAL TREATMENT ONLYTHIS REPORT CONTAINS UNCONFIR MED SCREENING RESULTS*POSITIVE RESULTS WILL BE CONFIRMED BY REFERENCE LAB UPON R EQUEST CUT-OFFDRUG CLASS CONCENTRATION ng/mLAmphetamines 1000Methamphetamines 1000Cocaine Metabolite 300Opiate 300Phencyc lidine 25Cannabinoid 50Barbiturates 300Benzodiazepine 300Methadone 300[facility] CenterUrine Opiates Ljivfc8066-91-57 16:13:00* Test Item Value Reference Range Interpretation Comments Urine Opiates Screen (test code = 47698-3) POSITIVE NEGATIVE H ALL TESTS PERFORMED MANUALLY ON [place] TOX/SEE TEST This test provides only a sc reen. Positive results should be repeated by a confirmatory test.[facility] CenterUrine Barbiturates Sbifss9662-46-07 16:13:00* Test Item Value Reference Range Interpretation Comments Urine Barbiturates Screen (test code = 636714373) NEGATIVE NEGA TIVE [facility] CenterU[facility] Phencyclidine Pwmwyu7853-04-93 16:13:00* Test Item Value Reference Range Interpretation Comments Urine Phencyclidine Screen (test code = 81342-6) NEGATIVE NEGAT ANGY [facility] CenterU[facility] Amphetamines Wsthbb0269-45-25 16:13:00* Test Item Value Reference Range Interpretation Comments Urine Amphetamines Screen (test code = 61666-2) NEGATIVE NEGATI VE [facility] CenterU[facility] Methamphetamines Irfqkt6543-53-72 16:13:00* Test Item Value Reference Range Interpretation Comments Urine Methamphetamines Screen (test code = Urine Metha mphetamines Screen) NEGATIVE NEGATIVE [facility] CenterU[facility] Benzodiazepines Xurxmj7047-31-20 16:13:00* Test Item Value Reference Range Interpretation Comments Urine Benzodiazepines Screen (test code = 48372-1) NEGATIVE NEG ATIVE [facility] CenterUrine Cocaine Vfzqkj5713-11-88 16:13:00* Test Item Value Reference Range Interpretation Comments Urine Cocaine Screen (test code = 3398-5) NEGATIVE NEGATIVE [facility] CenterUrine Cannabinoids Mucfpy2704-43-91 16:13:00* Test Item Value Reference Range Interpretation Comments Urine Cannabinoids Screen (test code = 62408-2) POSITIVE NEGATI VE H THESE RESULTS ARE FOR MEDICAL TREATMENT ONLYTHIS REPORT CONTAINS UNCONFIR MED SCREENING RESULTS*POSITIVE RESULTS WILL BE CONFIRMED BY REFERENCE LAB UPON R EQUEST CUT-OFFDRUG CLASS CONCENTRATION ng/mLAmphetamines 1000Methamphetamines 1000Cocaine 300Opiate 300Phencyc lidine 25Cannabinoid 50Barbiturates 300Benzodiazepine 300Methadone 300 This test p rovides only a screen. Positive results should be repeated by a confirmatory jourdan t.[facility] CenterUrine Methadone Flbqgq5458-71-86 16:13:00* Test Item Value Reference Range Interpretation Comments Urine Methadone Screen (test code = 76656-2) NEGATIVE NEGATIVE THESE RESULTS ARE FOR MEDICAL TREATMENT ONLYTHIS REPORT CONTAINS UNCONFIR MED SCREENING RESULTS*POSITIVE RESULTS WILL BE CONFIRMED BY REFERENCE LAB UPON R EQUEST CUT-OFFDRUG CLASS CONCENTRATION ng/mLAmphetamines 1000Methamphetamines 1000Cocaine Metabolite 300Opiate 300Phencyc lidine 25Cannabinoid 50Barbiturates 300Benzodiazepine 300Methadone 300[facility] Hpthj3281-33-08 16:12:00* Test Item Value Reference Range Interpretation Comments Urine Color (test code = 5778-6) YELLOW YELLOW [facility] CenterU[facility] Iygcuuf1869-71-67 16:12:00* Test Item Value Reference Range Interpretation Comments Urine Clarity (test code = 17660-9) SL CLOUDY CLEAR H [facility] CenterUrine Specific Bxufmqr1093-12-97 16:12:00 * Test Item Value Reference Range Interpretation Comments Urine Specific [place] (test code = 5811-5) 1.025 1.010-1.02 5 [facility] CenterU[facility] kR6922-61-55 16:12:00* Test Item Value Reference Range Interpretation Comments Urine pH (test code = 49003-2) 6 5-7 [facility] Center[facility] Leukocyte Espdswul1100-62-03 16:12:00* Test Item Value Reference Range Interpretation Comments Urine Leukocyte Esterase (test code = 49777-7) NEGATIVE NEGATIV E [facility] CenterU[facility] Wvmzqja4474-91-92 16:12:00* Test Item Value Reference Range Interpretation Comments Urine Nitrite (test code = 00208-8) NEGATIVE NEGATIVE [facility] Center[facility] Kkbcmok8191-46-69 16:12:00* Test Item Value Reference Range Interpretation Comments Urine Protein (test code = 04148-8) TRACE NEGATIVE H [facility] Glucose (UA)2019-03-13 16:12:00* Test Item Value Reference Range Interpretation Comments Urine Glucose (UA) (test code = 05231-3) NEGATIVE NEGATIVE [facility] Center[facility] Pnmmdmn3672-23-14 16:12:00* Test Item Value Reference Range Interpretation Comments Urine Ketones (test code = 47816-6) TRACE NEGATIVE H [facility] Ocrvbwixroun9604-63-25 16:12:00* Test Item Value Reference Range Interpretation Comments Urine Urobilinogen (test code = 52347-9) 1 0.2-1 [facility] Figzdwybq7829-81-73 16:12:00* Test Item Value Reference Range Interpretation Comments Urine Bilirubin (test code = 1977-8) SMALL NEGATIVE [facility] Gssya2560-56-52 16:12:00* Test Item Value Reference Range Interpretation Comments Urine Blood (test code = 42616-5) 1+ NEGATIVE [facility] Zcwjf6373-44-05 16:12:00* Test Item Value Reference Range Interpretation Comments Urine Color (test code = 5778-6) YELLOW YELLOW [facility] Zrftyiy2545-18-95 16:12:00* Test Item Value Reference Range Interpretation Comments Urine Clarity (test code = 93396-3) SL CLOUDY CLEAR H [facility] CenterU[facility] Specific Gvahbwy3851-52-29 16:12:00 * Test Item Value Reference Range Interpretation Comments Urine Specific [place] (test code = 5811-5) 1.025 1.010-1.02 5 [facility] Center[facility] mK0251-73-40 16:12:00* Test Item Value Reference Range Interpretation Comments Urine pH (test code = 90138-5) 6 5-7 [facility] Leukocyte Alzpsuij7321-62-98 16:12:00* Test Item Value Reference Range Interpretation Comments Urine Leukocyte Esterase (test code = 83671-7) NEGATIVE NEGATIV E [facility] Zgsumnb6446-81-70 16:12:00* Test Item Value Reference Range Interpretation Comments Urine Nitrite (test code = 14662-3) NEGATIVE NEGATIVE [facility] Ewcwdri4338-69-83 16:12:00* Test Item Value Reference Range Interpretation Comments Urine Protein (test code = 08411-1) TRACE NEGATIVE H [facility] Glucose (UA)2019-03-13 16:12:00* Test Item Value Reference Range Interpretation Comments Urine Glucose (UA) (test code = 41940-4) NEGATIVE NEGATIVE [facility] Aohuktm5834-06-93 16:12:00* Test Item Value Reference Range Interpretation Comments Urine Ketones (test code = 93619-8) TRACE NEGATIVE H [facility] Xmigrsmdscva7649-34-55 16:12:00* Test Item Value Reference Range Interpretation Comments Urine Urobilinogen (test code = 03243-1) 1 0.2-1 [facility] Drrordftr3583-51-16 16:12:00* Test Item Value Reference Range Interpretation Comments Urine Bilirubin (test code = 1977-8) SMALL NEGATIVE [facility] Mmnux5143-05-66 16:12:00* Test Item Value Reference Range Interpretation Comments Urine Blood (test code = 94384-9) 1+ NEGATIVE [facility] Tqjyg1988-39-86 16:12:00* Test Item Value Reference Range Interpretation Comments Urine Color (test code = 5778-6) YELLOW YELLOW [facility] Ptionvs0682-91-33 16:12:00* Test Item Value Reference Range Interpretation Comments Urine Clarity (test code = 29648-8) SL CLOUDY CLEAR H [facility] Center[facility] Specific Sgrrahc3153-87-78 16:12:00 * Test Item Value Reference Range Interpretation Comments Urine Specific [place] (test code = 5811-5) 1.025 1.010-1.02 5 [facility] hG1015-27-53 16:12:00* Test Item Value Reference Range Interpretation Comments Urine pH (test code = 85155-0) 6 5-7 [facility] Leukocyte Kwhmpxfe5922-05-53 16:12:00* Test Item Value Reference Range Interpretation Comments Urine Leukocyte Esterase (test code = 49701-1) NEGATIVE NEGATIV E [facility] Rdkyxbv3518-25-19 16:12:00* Test Item Value Reference Range Interpretation Comments Urine Nitrite (test code = 64913-6) NEGATIVE NEGATIVE [facility] Cchhjfq4686-53-55 16:12:00* Test Item Value Reference Range Interpretation Comments Urine Protein (test code = 77490-7) TRACE NEGATIVE H [facility] Glucose (UA)2019-03-13 16:12:00* Test Item Value Reference Range Interpretation Comments Urine Glucose (UA) (test code = 57317-8) NEGATIVE NEGATIVE [facility] Wtvhusu0548-84-72 16:12:00* Test Item Value Reference Range Interpretation Comments Urine Ketones (test code = 01337-3) TRACE NEGATIVE H [facility] Center[facility] Gapscygvtbgj2022-11-15 16:12:00* Test Item Value Reference Range Interpretation Comments Urine Urobilinogen (test code = 28053-7) 1 0.2-1 [facility] Nrbisaier0936-72-43 16:12:00* Test Item Value Reference Range Interpretation Comments Urine Bilirubin (test code = 1977-8) SMALL NEGATIVE [facility] Uqfca9825-14-30 16:12:00* Test Item Value Reference Range Interpretation Comments Urine Blood (test code = 78052-5) 1+ NEGATIVE [facility] CenterAcetaminophen Xvsyq6867-65-94 15:04:00* Test Item Value Reference Range Interpretation Comments Acetaminophen Level (test code = 05300-3) < 3 10-30 L [facility] CenterEthyl Alcohol Cufam7154-95-09 15:04:00* Test Item Value Reference Range Interpretation Comments Ethyl Alcohol Level (test code = 5643-2) < 10.0 0.0-10.0 [facility] Vfjrz6567-58-87 15:04:00* Test Item Value Reference Range Interpretation Comments Salicylates Level (test code = 4024-6) < 5.0 0-30 [facility] CenterAcetaminophen Skvvc8486-32-10 15:04:00* Test Item Value Reference Range Interpretation Comments Acetaminophen Level (test code = 57958-7) < 3 10-30 L [facility] CenterEthyl Alcohol Hrxiz5246-62-38 15:04:00* Test Item Value Reference Range Interpretation Comments Ethyl Alcohol Level (test code = 5643-2) < 10.0 0.0-10.0 [facility] Qrfce4933-68-77 15:04:00* Test Item Value Reference Range Interpretation Comments Salicylates Level (test code = 4024-6) < 5.0 0-30 [facility] CenterAcetaminophen Jjbnh3497-08-69 15:04:00* Test Item Value Reference Range Interpretation Comments Acetaminophen Level (test code = 90701-7) < 3 10-30 L [facility] CenterEthyl Alcohol Dzisl3528-62-73 15:04:00* Test Item Value Reference Range Interpretation Comments Ethyl Alcohol Level (test code = 5643-2) < 10.0 0.0-10.0 [facility] Nyifv2593-91-99 15:04:00* Test Item Value Reference Range Interpretation Comments Salicylates Level (test code = 4024-6) < 5.0 0-30 [facility] CenterAcetaminophen Rnwmo1355-61-93 15:04:00* Test Item Value Reference Range Interpretation Comments Acetaminophen Level (test code = 41966-1) < 3 10-30 L [facility] CenterEthyl Alcohol Vujty3039-62-04 15:04:00* Test Item Value Reference Range Interpretation Comments Ethyl Alcohol Level (test code = 5643-2) < 10.0 0.0-10.0 [facility] Xpzpm9315-29-71 15:04:00* Test Item Value Reference Range Interpretation Comments Salicylates Level (test code = 4024-6) < 5.0 0-30 [facility] CenterCHEST SINGLE (PORTABLE)2019-03-13 14:46:00 [facility] [address] [place] [address] Patient Name: QUYEN KIM MR #: [id number] : 1980 Age/Sex: 38/M Req #: [id number] Adm Physician: Ordered by: MARISOL ALBERT, PAULINE ALBERT Report #: [id number] Location: ER Room/Bed: Procedure: [id number] D X/CHEST SINGLE (PORTABLE) Exam Date: 03/13/19 [...] 2:46 PM Dictated By: DERIAN SOLORIO MD Spicer scribed By: JEANNE on 03/13/196 COPY TO: PAULINE DAMON Sodium Gyspb9110-51-15 14:43:00* Test Item Value Reference Range Interpretation Comments Sodium Level (test code = 2951-2) 136 136-145 [facility] CenterPotassium Gqebd4302-64-36 14:43:00* Test Item Value Reference Range Interpretation Comments Potassium Level (test code = 2823-3) 3.6 3.5-5.1 [facility] CenterChloride Bjmeb2565-28-86 14:43:00* Test Item Value Reference Range Interpretation Comments Chloride Level (test code = 2075-0) 103 98-107 [facility] CenterCarbon Dioxide Odndp8315-39-76 14:43:00* Test Item Value Reference Range Interpretation Comments Carbon Dioxide Level (test code = 2028-9) 23 22-29 [facility] CenterAnion Pwr0948-95-87 14:43:00* Test Item Value Reference Range Interpretation Comments Anion Gap (test code = 14090-0) 13.6 8-16 [facility] CenterBlood Urea Ztttwrwe3213-80-13 14:43:00* Test Item Value Reference Range Interpretation Comments Blood Urea Nitrogen (test code = 3094-0) 10 7-26 [facility] CenterCreatinine2019-11-11 14:43:00* Test Item Value Reference Range Interpretation Comments Creatinine (test code = 2160-0) 1.48 0.72-1.25 H [facility] CenterBUN/Creatinine Kamhz6561-17-70 14:43:00* Test Item Value Reference Range Interpretation Comments BUN/Creatinine Ratio (test code = 3097-3) 7 6-25 [facility] CenterEstimat Glomerular Filtration Rate 2019-03-13 14:43:00* Test Item Value Reference Range Interpretation Comments Estimat Glomerular Filtration Rate (test code = 482469139) > 60 >60 Ranges were taken from the National Kidney Disease Education Program and the [facility] literature.Reference ranges:60 or greater: Ssbjcx68-59 ( for 3 consecutive months): Chronic kidney disease 15 or less: Kidney failureT[facility] Medical CenterGlucose Svfyw2203-15-70 14:43:00* Test Item Value Reference Range Interpretation Comments Glucose Level (test code = XRJ8390) 84 74-118 [facility] CenterCalcium Ridxs8333-24-65 14:43:00* Test Item Value Reference Range Interpretation Comments Calcium Level (test code = 55369-8) 9.5 8.4-10.2 [facility] CenterMagnesium Kybno1468-97-91 14:43:00* Test Item Value Reference Range Interpretation Comments Magnesium Level (test code = 14211-1) 1.7 1.3-2.1 [facility] CenterTotal Efdxqrwqg9597-09-16 14:43:00* Test Item Value Reference Range Interpretation Comments Total Bilirubin (test code = 1975-2) 0.4 0.2-1.2 [facility] CenterAspartate Amino Transf (AST/SGOT) 2019-03-13 14:43:00* Test Item Value Reference Range Interpretation Comments Aspartate Amino Transf (AST/SGOT) (test code = Aspartate Amino Transf (AST/SGOT)) 26 5-34 [facility] CenterAlanine Aminotransferase (ALT/SGPT) 2019-03-13 14:43:00* Test Item Value Reference Range Interpretation Comments Alanine Aminotransferase (ALT/SGPT) (test code = 1742-6) 31 0-55 [facility] CenterTotal Guepknk5266-36-28 14:43:00* Test Item Value Reference Range Interpretation Comments Total Protein (test code = 2885-2) 7.7 6.5-8.1 [facility] CenterAlbumin2019-11-11 14:43:00* Test Item Value Reference Range Interpretation Comments Albumin (test code = 1751-7) 3.8 3.5-5.0 [facility] CenterGlobulin2019-11-11 14:43:00* Test Item Value Reference Range Interpretation Comments Globulin (test code = 24609-4) 3.9 2.3-3.5 H [facility] CenterAlbumin/Globulin Xkuye5038-95-36 14:43:00 * Test Item Value Reference Range Interpretation Comments Albumin/Globulin Ratio (test code = 1759-0) 1.0 0.8-2.0 [facility] CenterAlkaline Tjhichhjxmk7963-59-96 14:43:00* Test Item Value Reference Range Interpretation Comments Alkaline Phosphatase (test code = 6768-6) 75 40-150 [facility] CenterLipase2019-11-11 14:43:00* Test Item Value Reference Range Interpretation Comments Lipase (test code = 3040-3) 12 8-78 [facility] CenterMagnesium Abjdn0897-68-49 14:43:00* Test Item Value Reference Range Interpretation Comments Magnesium Level (test code = 90904-1) 1.7 1.3-2.1 [facility] CenterMagnesium Uluiy3392-33-62 14:43:00* Test Item Value Reference Range Interpretation Comments Magnesium Level (test code = 11689-5) 1.7 1.3-2.1 [facility] CenterWhite Blood Ssluf4848-21-31 14:22:00* Test Item Value Reference Range Interpretation Comments White Blood Count (test code = 6690-2) 3.05 4.8-10.8 L [facility] CenterRed Blood Cdmnb8597-53-49 14:22:00* Test Item Value Reference Range Interpretation Comments Red Blood Count (test code = 789-8) 3.51 4.3-5.7 L [facility] CenterHemoglobin2019-11-11 14:22:00* Test Item Value Reference Range Interpretation Comments Hemoglobin (test code = 92860-8) 11.5 14.0-18.0 L [facility] CenterHematocrit2019-11-11 14:22:00* Test Item Value Reference Range Interpretation Comments Hematocrit (test code = 4544-3) 33.3 38.2-49.6 L [facility] CenterMean Corpuscular Qgqaoy4006-54-76 14:22:00* Test Item Value Reference Range Interpretation Comments Mean Corpuscular Volume (test code = 787-2) 94.9 81-99 [facility] CenterMean Corpuscular Pbuahizmrc2320-99-31 14:22:00* Test Item Value Reference Range Interpretation Comments Mean Corpuscular Hemoglobin (test code = 785-6) 32.8 28-32 H [facility] CenterMean Corpuscular Hemoglobin Concent 2019-03-13 14:22:00* Test Item Value Reference Range Interpretation Comments Mean Corpuscular Hemoglobin Concent (test code = 786-4) 34.5 31-35 [facility] CenterRed Cell Distribution Fwwwk2144-52-81 14:22:00* Test Item Value Reference Range Interpretation Comments Red Cell Distribution Width (test code = 49598-7) 11.7 11.7 -14.4 [facility] CenterPlatelet Eqnmx5482-84-55 14:22:00* Test Item Value Reference Range Interpretation Comments Platelet Count (test code = 777-3) 189 140-360 [facility] CenterNeutrophils (%) (Auto)2019-03-13 14:22:00 * Test Item Value Reference Range Interpretation Comments Neutrophils (%) (Auto) (test code = 42627-6) 53.1 38.7-80.0 [facility] CenterLymphocytes (%) (Auto)2019-03-13 14:22:00 * Test Item Value Reference Range Interpretation Comments Lymphocytes (%) (Auto) (test code = 736-9) 33.1 18.0-39.1 [facility] CenterMonocytes (%) (Auto)2019-03-13 14:22:00* Test Item Value Reference Range Interpretation Comments Monocytes (%) (Auto) (test code = 5905-5) 10.8 4.4-11.3 [facility] CenterEosinophils (%) (Auto)2019-03-13 14:22:00 * Test Item Value Reference Range Interpretation Comments Eosinophils (%) (Auto) (test code = 713-8) 2.0 0.0-6.0 [facility] CenterBasophils (%) (Auto)2019-03-13 14:22:00* Test Item Value Reference Range Interpretation Comments Basophils (%) (Auto) (test code = 706-2) 0.3 0.0-1.0 [facility] CenterIM GRANULOCYTES %2019-03-13 14:22:00* Test Item Value Reference Range Interpretation Comments IM GRANULOCYTES % (test code = IM GRANULOCYTES %) 0.7 0.0- 1.0 [facility] CenterNeutrophils # (Auto)2019-03-13 14:22:00* Test Item Value Reference Range Interpretation Comments Neutrophils # (Auto) (test code = 751-8) 1.6 2.1-6.9 L [facility] CenterLymphocytes # (Auto)2019-03-13 14:22:00* Test Item Value Reference Range Interpretation Comments Lymphocytes # (Auto) (test code = 09008-3) 1.0 1.0-3.2 [facility] CenterMonocytes # (Auto)2019-03-13 14:22:00* Test Item Value Reference Range Interpretation Comments Monocytes # (Auto) (test code = 742-7) 0.3 0.2-0.8 [facility] CenterEosinophils # (Auto)2019-03-13 14:22:00* Test Item Value Reference Range Interpretation Comments Eosinophils # (Auto) (test code = 711-2) 0.1 0.0-0.4 [facility] CenterBasophils # (Auto)2019-03-13 14:22:00* Test Item Value Reference Range Interpretation Comments Basophils # (Auto) (test code = 704-7) 0.0 0.0-0.1 [facility] CenterAbsolute Immature Granulocyte (auto 2019-03-13 14:22:00* Test Item Value Reference Range Interpretation Comments Absolute Immature Granulocyte (auto (jourdan t code = Absolute Immature Granulocyte (auto) 0.02 0-0.1 [facility] CenterManual blood eosinophil count as percentage of total xpsphipflb5239-99-91 12:55:00* Test Item Value Reference Range Interpretation Comments Eosinophils % (Manual) (test code = 714-6) 3 0-7 [facility] CenterManual blood metamyelocytes/100 tnjbxlabad2403-41-20 12:55:00* Test Item Value Reference Range Interpretation Comments Metamyelocytes % (test code = 740-1) 1 0-0 [facility] anisocytosis detection by light yvtfemgkig0460-45-86 12:55:00* Test Item Value Reference Range Interpretation Comments Anisocytosis (test code = 702-1) SLIGHT [facility] CenterBlessent[facility] health [place] bodies detection by light hcqvxhulib7872-97-94 12:55:00* Test Item Value Reference Range Interpretation Comments [place] Bodies (test code = 7793-3) FEW [facility]iscoerum or plasma acetaminophen measurement by screening method (mass/volume)2019-03-13 12:55:00* Test Item Value Reference Range Interpretation Comments Acetaminophen Level (test code = 72617-5) < 3 10-30 [facility] Friscoerum or plasma ethanol measurement (mass/volume)2019-03-13 12:55:00* Test Item Value Reference Range Interpretation Comments Ethyl Alcohol Level (test code = 5643-2) < 10.0 0.0-10.0 [facility] Friscoerum or plasma salicylates measurement (mass/volume)2019-03-13 12:55:00* Test Item Value Reference Range Interpretation Comments Salicylates Level (test code = 4024-6) < 5.0 0-30 [facility] blood eosinophil count as percentage of total egtvyclosa5880-61-85 12:55:00* Test Item Value Reference Range Interpretation Comments Eosinophils % (Manual) (test code = 714-6) 3 0-7 [facility] blood metamyelocytes/100 tudkxkbbvf1053-58-49 12:55:00* Test Item Value Reference Range Interpretation Comments Metamyelocytes % (test code = 740-1) 1 0-0 [facility] anisocytosis detection by light sphmrzfxvq1307-95-22 12:55:00* Test Item Value Reference Range Interpretation Comments Anisocytosis (test code = 702-1) SLIGHT [facility] [place] bodies detection by light mfxconlwfq7574-71-22 12:55:00* Test Item Value Reference Range Interpretation Comments [place] Bodies (test code = 7793-3) FEW [facility]iscoerum or plasma acetaminophen measurement by screening method (mass/volume)2019-03-13 12:55:00* Test Item Value Reference Range Interpretation Comments Acetaminophen Level (test code = 74311-9) < 3 10-30 [facility]iscoerum or plasma ethanol measurement (mass/volume)2019-03-13 12:55:00* Test Item Value Reference Range Interpretation Comments Ethyl Alcohol Level (test code = 5643-2) < 10.0 0.0-10.0 [facility]iscoerum or plasma salicylates measurement (mass/volume)2019-03-13 12:55:00* Test Item Value Reference Range Interpretation Comments Salicylates Level (test code = 4024-6) < 5.0 0-30 [facility] blood eosinophil count as percentage of total hgottvffko6410-97-40 12:55:00* Test Item Value Reference Range Interpretation Comments Eosinophils % (Manual) (test code = 714-6) 3 0-7 [facility] blood metamyelocytes/100 hgzntqxcrv1282-48-35 12:55:00* Test Item Value Reference Range Interpretation Comments Metamyelocytes % (test code = 740-1) 1 0-0 [facility] anisocytosis detection by light zheqnherve5430-39-33 12:55:00* Test Item Value Reference Range Interpretation Comments Anisocytosis (test code = 702-1) SLIGHT [facility] [place] bodies detection by light ohxlzqfedu5629-86-33 12:55:00* Test Item Value Reference Range Interpretation Comments [place] Bodies (test code = 7793-3) FEW [facility]iscoerum or plasma acetaminophen measurement by screening method (mass/volume)2019-03-13 12:55:00* Test Item Value Reference Range Interpretation Comments Acetaminophen Level (test code = 30124-2) < 3 10-30 [facility]iscoerum or plasma ethanol measurement (mass/volume)2019-03-13 12:55:00* Test Item Value Reference Range Interpretation Comments Ethyl Alcohol Level (test code = 5643-2) < 10.0 0.0-10.0 [facility]iscoerum or plasma salicylates measurement (mass/volume)2019-03-13 12:55:00* Test Item Value Reference Range Interpretation Comments Salicylates Level (test code = 4024-6) < 5.0 0-30 [facility] CenterCalcium carbonate crystals detection in urine sediment by light bmydkhxbrr1827-92-20 11:35:00* Test Item Value Reference Range Interpretation Comments Urine Calcium Carbonate Crystals (test code = 5773-7) MANY NONE [facility] CenterCalcium carbonate crystals detection in urine sediment by light smziizfokl0667-78-24 11:35:00* Test Item Value Reference Range Interpretation Comments Urine Calcium Carbonate Crystals (test code = 5773-7) MANY NONE [facility] CenterCalcium carbonate crystals detection in urine sediment by light zioqwqtdko0423-47-82 11:35:00* Test Item Value Reference Range Interpretation Comments Urine Calcium Carbonate Crystals (test code = 5773-7) MANY NONE [facility]- DUP AB/PEL/SC ZIQH6160-58-54 11:31:00 Name: QUYEN KIM [facility] : 1980 Age/S: 38 / M [address] [facility] Unit #: [id number] Loc: [place] [address] Phys: Freddie Lira MD Acct: [id number] Di s Date: Status: REG ER PHONE #: [phone] Exam Date: 02/28/2019 1110 FAX #: [phone] Reason: scrotal pain EXAMS: CPT CODE: [id number] DUP AB/PEL/SC COMP 72534 REASON FOR EXAM: testicul ar pain, vomiting [...] present: PAGE 1 Signed Report (CONTINUED) Name: SAMMIEQUYEN T [facility] : 1980 Age/S: 38 / M [address] Unit #: [id number] Loc: [place] [address] Phys: Kyra Lira MD Acct: [id number] Dis Date: atus: PHONE #: [phone] Exam Theodore e: 02/28/2019 1110 FAX #: [phone] Reason: scrotal pain EXAMS: CPT CODE: [id number] DUP AB/PEL/SC COMP 09062 <Continued> personal/family history of germ cell tumour maldescent orchidopexy testicular atrophy No evidence of torsion or orchitis. at 1131 Reported and signed by: Alli Felipe MD CC: Kyra Lira MD Technologist: ARNULFO COATS RT(R),RDMS Trnscb Date/Time: 02/28/2019 (3746) t.SDR.RR31 PAGE 2 Signed Report - US SCROTUM AND KOAQ7799-53-61 11:31:00 Name: QUYEN KIM [facility] : 1980 Age/S: 38 / M [address] Unit #: [id number] Loc: [place] [address] Phys: Kyra Lira MD Acct: [id number] Dis Date: Status: REG ER PHONE #: [phone] Exam Date: 02/28/2019 1110 FAX #: [phone] Reason: testicular pain, vomiting EXAMS: CPT CODE: [id number] US SCROTUM AND CNTS 42702 REASON FOR EXAM: testicular pain, vomiting EXAM [...] Signed Report (CONTINUED) Name: QUYEN KIM [facility] : 1980 Age/S: 38 / M [address] Unit #: [id number] Loc: [place] [address] Phys: Kyra Lira MD Acct: [id number] Dis Date: Status: REG ER PHONE #: [phone] Exam Date: 02/28/2019 1110 FAX #: [phone] Reason: testicular pain, vomiting EXAMS: CPT CODE: [id number] US SCROTUM AND CNTS 84189 <Continued> personal/family history of germ cell tumour maldescent orchidopexy testicular atrophy No evidence of torsion or orchitis. at 1131 Reported and signed by: Alli Felipe MD CC: Kyra Lira MD Technologist: ARNULFO COATS RT(R),RDMS Trnscb Date/Time: 02/28/2019 (1131) t.SDR.RR31 Orig Print D/T: S: 02/28/2019 (5927) Probe: PAGE 2 Signed Report DRUGS OF ABUSE SCREEN SU0739-46-90 10:46:00* Test Item Value Reference Range Interpretation [...] NEGATIVE <300 ng/mL ADD ON AT 1002URINALYSIS WWOCEQKD8357-84-40 10:32:00* Test Item Value Reference Range Interpretation [...] Urine Source? Clean CatchDRUGS OF ABUSE SCREEN RU6315-78-12 10:32:00* Test Item Value Reference Range Interpretation [...] = [place]) <300 ng/mL ADD ON AT [address] [place] [address] W/O TFOY5516-76-33 10:13:00* Test Item Value Reference Range Interpretation [...] MPV) 11.4 fL 6.7-11.0 H BASIC METABOLIC DWCCQ6181-66-96 10:10:00* Test Item Value Reference Range Interpretation [...] CA) 9.8 mg/dL 8.5-10.1 N HEPATIC FUNCTION OGACT5685-82-46 10:10:00* Test Item Value Reference Range Interpretation [...] reference range due to change in reagent. CDKCSP1486-86-75 10:10:00* Test Item Value Reference Range Interpretation Comments LIPASE (test code = LIP) 123 U/L 73.0-393.0 N MYVRXWMD-N4333-15-29 10:10:00* Test Item Value Reference Range Interpretation Comments TROPONIN-I (test code = TROPI) <0.015 ng/mL 0-0.045 N BASIC METABOLIC LWVSZ4832-94-03 09:58:00* Test Item Value Reference Range Interpretation [...] code = CA) mg/dL 8.5-10.1 HEPATIC FUNCTION [id number] 09:58:00* Test Item Value Reference Range Interpretation [...] TOTAL (test code = ALKP) IUnit/L 45-117 [id number] 09:58:00* Test Item Value Reference Range Interpretation Comments LIPASE (test code = LIP) U/L 73.0-393.0 [id number] 09:58:00* Test Item Value Reference Range Interpretation Comments TROPONIN-I (test code = TROPI) ng/mL 0-0.045 - CT ABD PELVIS W/O [id number] 09:34:00 Name: QUYEN KIM [facility] : 1980 Age/S: 38 / M [address] [facility] Unit #: [id number] Loc: [place] [address] Phys: Kyra Lira MD Acct: [id number] Dis Date: Status: REG ER PHONE #: [phone] Exam Date: 02/28/2019904 FAX #: [phone] Reason: LLQ ttp, vomiting EXAMS: CPT CODE: [id number] CT ABD PELVIS W/O CONT 37824 REASON FOR EXAM: LLQ ttp, vomiting EXAM [...] Signed Re port (CONTINUED) Name: QUYEN KIM [facility] : 1980 Age/S: 38 / M [address] Unit #: [id number] [place]: [place] [address] Phys: Kyra Lira MD Acct: [id number] Dis Date: Status: REG ER PHONE #: [phone] Exam Date: 02/28/2019904 FAX #: [phone] Reason: LLQ ttp, vomiting EXAMS: CPT CODE: [id number] CT ABD PELVIS W/O CONT 45711 <Continued> Abdominal vascular structures: Circumaortic left renal [...] the left lower abdomen. Location: [facility] at 0934 Reported and signed by: Alli Felipe MD CC: Kyra Lira MD Technologist:Radames Chang RT(R),(MR),(CT) CTDI: DLP: Trnscb Date/Time: 02/28/2019 (34) [email or web address] Orig Print D/T: S: 02/28/2019 (0937) PAGE 2 Signed Report - CT ABD PELVIS W/O [id number] 16:32:00 Name: QUYEN KIM [facility] : 1980 Age/S: 38 / M [address] [facility] Unit #: [id number] Loc: [place] [address] Phys: Trudy Benjamin NP Acct: [id number] Dis Date: Status: REG ER PHONE #: [phone] Exam Date: 02/24/2019 1430 FAX #: [phone] Reason: abdominal pain EXAMS: CPT CODE: [id number] CT ABD PELVIS W/O CONT 02720 REASON FOR EXAM: abdominal pain EXAM ORDER [...] 1 Signed Report (CONTINUED) Name: QUYEN KIM [facility] : 1980 Age/S: 38 / M [address] [facility] Unit #: [id number] Loc: [place] [address] Phys: Trudy Benjamin NP Acct: [id number] Dis Date: Status: REG ER PHONE #: [phone] Exam Date: 02/24/2019 1430 FAX #: [phone] Reason: abdominal pain EXAMS: CPT CODE: [id number] CT ABD PELVIS W/O CONT 10706 < Continued> grossly normal Peritoneum and retroperitoneum: [...] Correlate with physical exam. Location: [facility] at 1632 Reported and signed by: Alli Felipe MD CC: Trudy Benjamin QUALITY CONTROL TESTER; Melyssa Ramirez DO Technologist:Pavel Maciel RT(R) CTDI: DLP: Trnscb Date/Time: 02/24/2019 (752) [email or web address] Orig Print D/T: S: 02/24/2019 (1778) PAGE 2 Signed Report DRUGS OF ABUSE [...] NEGATIVE <300 ng/mL DRUGS OF ABUSE SCREEN [id number] 16:07:00* Test Item Value Reference Range Interpretation [...] code = [place]) NEGATIVE <300 ng/mL URINALYSIS [id number] 15:47:00* Test Item Value Reference Range Interpretation [...] FEW A Urine Source? Clean CatchBASIC METABOLIC [id number] 14:12:00* Test Item Value Reference Range Interpretation [...] CA) 9.9 mg/dL 8.5-10.1 N HEPATIC FUNCTION [id number] 14:12:00* Test Item Value Reference Range Interpretation [...] reference range due to change in reagent. [id number] 14:12:00* Test Item Value Reference Range Interpretation Comments LIPASE (test code = LIP) 80 U/L 73.0-393.0 N BASIC METABOLIC [id number] 14:00:00* Test Item Value Reference Range Interpretation [...] code = CA) mg/dL 8.5-10.1 HEPATIC FUNCTION [id number] 14:00:00* Test Item Value Reference Range Interpretation [...] TOTAL (test code = ALKP) IUnit/L 45-117 [id number] 14:00:00* Test Item Value Reference Range Interpretation Comments LIPASE (test code = LIP) U/L 73.0-393.0 CBC W/O [id number] 13:50:00* Test Item Value Reference Range Interpretation [...] MPV) 10.4 fL 6.7-11.0 N CBC W/O [id number] 13:49:00* Test Item Value Reference Range Interpretation [...]
[2019-12-26 07:00] LABS: BASOPHILS % 0.3 % (0.0-1.0); EOSINOPHILS % 0.5 % (0.0-6.0); HEMATOCRIT 39.1 % (38.2-49.6); HEMOGLOBIN 13.4 g/dL (14.0-18.0); LYMPHOCYTES # (AUTO) 2.7 (1.0-3.2); LYMPHOCYTES % 44.8 % (18.0-39.1); MEAN CORPUSCULAR HEMOGLOBIN 32.3 pg (28-32); MEAN CORPUSCULAR HGB CONC 34.3 g/dL (31-35); MEAN CORPUSCULAR VOLUME 94.2 fL (81-99); MONOCYTES # (AUTO) 0.5 (0.2-0.8); MONOCYTES % 7.8 % (4.4-11.3); NEUTROPHILS # (AUTO) 2.7 (2.1-6.9); NEUTROPHILS % 46.4 % (38.7-80.0); PLATELET COUNT 222 x10e3/uL (140-360); RED BLOOD COUNT 4.15 x10e6/uL (4.3-5.7); RED CELL DISTRIBUTION WIDTH 11.7 % (11.7-14.4)
[2019-12-26 07:54] LABS: ALANINE AMINOTRANSFERASE 15 IU/L (0-55); ALBUMIN 4.6 g/dL (3.5-5.0); ALBUMIN/GLOBULIN RATIO 1.2 (0.8-2.0); ALKALINE PHOSPHATASE 85 IU/L (40-150); ANION GAP 18.2 mmol/L (8-16); BLOOD UREA NITROGEN 7 mg/dL (7-26); BUN/CREATININE RATIO 5 (6-25); CARBON DIOXIDE 21 mmol/L (22-29); CHLORIDE 102 mmol/L (98-107); CREATININE, SERUM 1.54 mg/dL (0.72-1.25); EST GLOMERULAR FILTRATION RATE > 60 ML/MIN (60-); GLUCOSE 100 mg/dL (74-118); POTASSIUM 3.2 mmol/L (3.5-5.1); SODIUM 138 mmol/L (136-145)
--- NOTE | 2019-12-26 08:03 | NUR ---
Pt sleeping, awoke pt to remind him UA needed. Pt verbalized understanding.
[2019-12-26] MEDS ORDERED: LACTATED RINGER'S 1,000 ML ONE (08:11)
[2019-12-26] MEDS ORDERED: LACTATED RINGER'S 1,000 ML INJ ONE (08:15)
[2019-12-26] MEDS ORDERED: HALOPERIDOL1 MG PO (08:19)
[2019-12-26 08:28] LABS: CLARITY,URINE CLEAR (CLEAR); COLOR,URINE YELLOW (YELLOW)
[2019-12-26 08:30] LABS: KETONES,URINE NEGATIVE (NEGATIVE); LEUKOCYTE ESTERASE ,URINE NEGATIVE (NEGATIVE); NITRITE,URINE NEGATIVE (NEGATIVE); PROTEIN,URINE DIPSTICK 1+ (NEGATIVE)
[2019-12-26 08:31] LABS: AMPHETAMINES SCREEN,URINE NEGATIVE (NEGATIVE); BENZODIAZEPINES SCREEN,URINE NEGATIVE (NEGATIVE); PHENCYCLIDINE SCREEN,URINE NEGATIVE (NEGATIVE)
[2019-12-26 08:32] LABS: BILIRUBIN,URINE NEGATIVE (NEGATIVE); URINE UROBILINOGEN 0.2 mg/dL (0.2 - 1)
[2019-12-26 08:44] LABS: CALCIUM OXALATE CRYSTALS,UR FEW (FEW); EPITHELIAL CELLS,URINE FEW /LPF; RBC,URINE 21-50 /HPF (0-5); WBC,URINE (MAN) 0-5 /HPF (0-5)
[2019-12-26 08:45] LABS: BACTERIA,URINE FEW /HPF; MUCUS,URINE MANY (RARE)
[2019-12-26 09:16] VITALS: BP 107/59
== END 2019-12-26 09:01 | disposition home or self-care (01) ==
LOC: ER 06:15
DX: R10.13 Epigastric pain (principal); R11.2 Nausea with vomiting, unspecified; F12.90 Cannabis use, unspecified, uncomplicated; I10 Essential (primary) hypertension; B20 Human immunodeficiency virus [HIV] disease; F17.210 Nicotine dependence, cigarettes, uncomplicated
CPT/HCPCS: 36415; 80053; 80307; 81001; 83690; 85025; 99284; J1630; J7030; J7121

== ENCOUNTER 2020-01-01 07:28 | Emergency (ER) | payer OTHER ==
[~2020-01-01] VITALS: Ht 200.7 cm; Wt 54.4 kg
[~2020-01-01 07:28] MED LIST changes: +HALOPERIDOL1 MG PO
--- OUTSIDE RECORDS SUMMARY | 2020-01-01 07:37 | XMS REPORT | Clinical Summary ---
Author Author [facility] Organization [facility] Address Unknown Phone Unavailable Care Team Providers Care Special Warfare Operator Name Role Phone PCP Unavailable Allergies Comments [...] Kyra Wei RN Results Not on fileafter 12/31/2018 Insurance Type Payer Benefit Subscriber ID Effective Phone Address Plan / Dates Group [place] [id number] SSI xxxxxxxxx 2017-P [id number] [place] [address] [facility] SELF-PAY SELF-PAY xxxxxxxxx 2018-P [phone] [address] [place] [address] Vimal Kim Personal/F Self [address] amily (Home) [place] [address] Advance Directives Date Inactivated Comments Code Status Date Activated 11/12/2011 4:39 PM Full Code 11/11/2011 4:04 AM
[2020-01-01] MEDS ORDERED: PANTOPRAZOLE 40 MG 10ML VIAL IV STA (07:38)
[2020-01-01] MEDS ORDERED: SODIUM CHLORIDE 0.9% 1000ML 1,000 ML IV STA ×2 (07:38)
--- OUTSIDE RECORDS SUMMARY | 2020-01-01 07:39 | XMS REPORT | Continuity of Care Document ---
Author Author [facility] t Organization [facility] Address [address] [place] [address] Phone Unavailable Care Team Providers Care Dean Of Faculty Name Role Phone NONSTAFF PCP Unavailable WESLY SPICER Attphys Unavailable Brown MONROY Attphys Unavailable Sergio MONTGOMERY Attphys Unavailable PAULINE DAMON Attphys Unavailable Payers Payer Name Policy Type Policy Number Effective Date Expiration Date [place] Is[place] Medicaid [id number] 2018 00:00:00 2020 00:00:00 [facility] Problems Condition Name Condition Details Condition Category Status Onset Date Resolution Date Last Treatment Date Treating Clinician Comments Source LBP (low back pain) LBP (low back pain) Disease Active 2014-05-11 00:00 :00 [facility] Homeless Homeless Disease Active 2012-01-12 00:00:00 [facility] Polysubstance (excluding opioids) dependence Polysubst ance (excluding opioids) dependence Disease Active 2011-12-15 00:00:00 [facility] AIDS AIDS Disease Active 2011-09-03 00:00:00 [facility] Major depression, recurrent Major depression, recurrent Disease Active 2010-12-15 00:00:00 [facility] ealt Irritable bowel syndrome Problem Active [facility] Cocaine abuse Problem Active [facility] Cannabinoid hyperemesis syndrome Problem Active [facility] Intractable vomiting with nausea Problem Active [facility] Nausea and vomiting Problem Active [facility] Abdominal pain Abdominal pain Disease Active [facility] Allergies, Adverse Reactions, Alerts Allergy Name Allergy Type Status Severity Reaction(s) Onset Date Inacti ve Date Treating Clinician Comments Source No Known Allergies DA Active U 2019-02-28 00:00:00 [facility] Aspirin Propensity to adverse reactions to drug Active 2018-01-06 00:00:00 [facility] ASPIRIN DA Active U 2005-10-16 00:00:00 [facility] No Known Contrast Allergies DA Active U 2005-10-16 00:00: 00 [facility] No Known Food Allergies DA Active U 2005-10-16 00:00:00 [facility] No Known Other Allergies DA Active U 2005-10-16 00:00:00 [facility] Family History Family Member Diagnosis Comments Start Date Stop Date Source Natural brother Diabetes [facility] alth Natural father Lipids [facility] Natural father Unknown Fam Hx [facility] Natural mother Alcohol/Drug [facility] Natural mother Diabetes [facility] Natural mother Hypertension [facility] Natural sister Seizures [facility] Social History Social Habit Start Date Stop Date Quantity Comments Source History of tobacco use Cigarette Smoker [facility] Sex Assigned At [facility] Cigarettes smoked current (pack per day) - Reported 00:00:00 2018-10-05 00:00:00 [facility] Cigarette pack-years 2018-10-05 00:00:00 2018-10-05 00:00:00 [facility] Alcohol intake 2018-10-05 00:00:00 2018-10-05 00:00:00 Current non-drinker of alcohol (finding) [facility] SDOH Food Worry 2016-09-22 00:00:00 2016-09-22 00:00:00 1 [facility] Food Scarcity 2016-09-22 00:00:00 2016-09-22 00:00:00 1 [facility] Smoking Status Start Date Stop Date Source Current every day smoker 2018-10-05 00:00:00 [facility] Medications Ordered Medication Name Filled Medication Name Start Date Stop Da te Current Medication? Ordering Clinician Indication Dosage Frequency Signature (SIG) Comments Components Source Haloperidol Haloperidol 2019-12-26 08:19:00 Yes 2 Daily as needed for Nausea [facility] Dicyclomine Hcl (Bentyl) 10 Mg/1 Ml AMPUL Dicyclomine Hcl (Bentyl) 10 Mg/1 Ml AMPUL 2019-12-14 10:35:00 Yes 20 Four Times Daily [facility] Pantoprazole Sodium (Protonix) 40 Mg TABLET. Pantopr azole Sodium (Protonix) 40 Mg TABLET. 2019-12-14 10:35:00 Yes 40 Daily [facility] Ondansetron Hcl (Zofran*) 4 Mg TABLET Ondansetron Hcl (Zofra n*) 4 Mg TABLET 2019-12-14 10:35:00 2019-12-26 00:00:00 No 4 Every 6 Hours as needed for Nausea [facility] ibuprofen (MOTRIN) 400 mg tablet 2018-01-06 00:00:00 Yes Abdominal pain, unspecified abdominal location 400mg Take 1 ta blet by mouth every 8 hours as needed for Pain. [facility] sulfamethoxazole-trimethoprim (BACTRIM DS) 800-160 mg per ta blet 2017-02-19 00:00:00 Yes AIDS 1{tbl} Take 1 tablet by mouth 3 time s weekly. [facility] darunavir (PREZISTA) 800 mg Tab tablet 2017-02-18 00:00:00 Yes AIDS 800mg QD Take 1 tablet by mouth daily. [facility] RITONavir (NORVIR) 100 mg Tab 2017-02-18 00:00:00 Yes AIDS 100mg QD Take 1 tablet by mouth daily. [facility] emtricitabine-tenofovir alafen (DESCOVY) 200-25 mg tablet 2017-02-18 00:00:00 Yes AIDS 1{tbl} QD Take 1 tablet by mouth daily. [facility] BOOST VHC 0.09-2.25 gram-kcal/mL oral liquid 2017-02-18 00:00:00 Yes AIDS 1{package} Take 1 Package by mouth 3 times daily. [facility] Acetaminophen/Codeine Phosphate (Tylenol # 3*) 1 Ea TA B Acetaminophen/Codeine Phosphate (Tylenol # 3*) 1 Ea TAB Yes As Needed as needed for Abdominal Pain [facility] Clindamycin Hcl Clindamycin Hcl Yes 300 Every 6 Hours [facility] Dicyclomine Hcl (Bentyl) 10 Mg/1 Ml AMPUL Dicyclomine Hcl (Bentyl) 10 Mg/1 Ml AMPUL Yes 20 Four Times Daily [facility] Hydrochlorothiazide Hydrochlorothiazide Yes 12.5 Daily [facility] Metronidazole (Flagyl) 500 Mg TABLET Metronidazole (Flagyl) 500 Mg TABLET Yes 500 Every 6 Hours [facility] Immunizations Ordered Immunization Name Filled Immunization Name Date Status Comments Source Influenza <Unspecified> 2017-03-09 00:00:00 Completed [facility] PPD 2016-09-22 00:00:00 Completed [facility] Pneumococcal 13-valent conj 0.5 mL injection 2014-04-30 00 :00:00 Completed [facility] Influenza Vaccine 2014-01-30 00:00:00 Completed [facility] PPD 2014-01-02 00:00:00 Completed [facility] Influenza Vaccine 2012-02-09 00:00:00 Completed [facility] Hepatitis B Vaccine 2012-01-14 00:00:00 Completed [facility] PPV 23 Pneumococcal Polysaccaride 2011-12-17 00:00:00 Comp leted [facility] Hepatitis B Vaccine 2011-12-17 00:00:00 Completed [facility] PPD 2011-12-14 00:00:00 Completed [facility] PPD 2010-10-24 00:00:00 Completed [facility] Tdap Tetanus, diphtheria, acellular pertussis Vaccine 2009-10-31 00:00:00 [facility] Vital Signs Vital Name Observation Time Observation Value Comments Source Weight 2019-12-26 06:07:00 120 [lb_av] [facility] BMI (Body Mass Index) 2019-12-26 06:07:00 13.5 kg/m2 [facility] Weight 2019-12-24 13:41:00 120 [lb_av] [facility] BMI (Body Mass Index) 2019-12-24 13:41:00 13.5 kg/m2 [facility] Weight 2019-12-15 20:19:00 175 [lb_av] [facility] BMI (Body Mass Index) 2019-12-15 20:19:00 23.1 kg/m2 [facility] Weight 2019-12-14 07:55:00 210 [lb_av] [facility] BMI (Body Mass Index) 2019-12-14 07:55:00 37.2 kg/m2 [facility] Body Temperature 2019-04-04 12:48:00 97.9 [degF] [facility] Procedures Procedure Date / Time Performed Performing Clinician [facility] janelle Computed tomography of abdomen and pelvis with contrast 00:00:00 [facility] Computed tomography of abdomen and pelvis with contrast 2018 00:00:00 BRANDO MONTGOMERY [facility] INSPECTION OF LOWER INTESTINAL TRACT, ENDO 2019-03-17 00:00:00 [facility] INSPECTION OF UPPER INTESTINAL TRACT, ENDO 2019-03-17 00:00:00 [facility] CT of abdomen and pelvis without contrast 2019-03-14 00:00:00 [facility] Computed tomography of abdomen and pelvis with contrast 2018 00:00:00 PAULINE DAMON [facility] Plan of Care Planned Activity Planned Date Details Comments Source Future Scheduled Test 2020-02-01 00:00:00 IMM Influenza Seas onal Jan to July (>/= 19 yrs) [code = IMM Influenza Seasonal Jan to July (>/= 19 yrs)] [facility] Instructions Vomiting - Adult [facility] Encounters Start Date/Time End Date/Time Encounter Type Admission Type [facility] Care Department Encounter ID Source 2019-12-26 06:15:00 2019-12-26 09:01:00 Departed Emergency Room [id number] [facility] 2019-12-24 13:40:00 2019-12-24 17:46:00 Departed Emergency Room 1 WESLY SPICER [facility] [id number] [facility] 2019-12-15 20:45:00 2019-12-16 00:02:00 Departed Emergency Room [facility] [id number] [facility] 2019-12-14 08:05:00 2019-12-14 11:10:00 Departed Emergency Room 1 GEOVANI MONROY [facility] [id number] [facility] 2019-04-04 07:55:00 2019-04-04 13:33:00 Departed Emergency Room 1 BRANDO MONTGOMERY [facility] [id number] [facility] 2019-03-26 16:20:00 2019-03-26 16:53:00 Departed Emergency Room [facility] [id number] [facility] 2019-03-15 11:39:00 2019-03-17 19:25:00 Discharged Inpatient 1 WESLY SPICER [facility] [id number] [facility] 2019-03-13 11:16:00 2019-03-13 16:09:00 Departed Emergency Room 1 PAULINE DAMON [facility] [id number] [facility] 2018-01-06 20:36:16 2018-01-06 20:36:16 Emergency [facility] [id number] [facility] 2016-09-16 15:48:00 2016-09-16 15:48:00 Emergency E [facility] [id number] [facility] Results Test Description Test Time Test Comments Results Result Comments Source Urine color determination 2019-12-26 08:13:00 Test Item Urine Color (test code = 5778-6) YELLOW YELLOW [facility] [id number] 08:13:00* Test Item Value Reference Range Interpretation Comments Urine Clarity (test code = 09735-7) [facility] by Test strip 2019-12-26 08:13:00* Test Item Value Reference Range Interpretation Comments Urine Specific [place] (test code = 5811-5) 1.020 1.010-1.02 5 [facility] pH measurement by automated test [id number] 08:13:00* Test Item Value Reference Range Interpretation Comments Urine pH (test code = 10152-1) 6.5 5-7 [facility] leukocyte esterase detection by [id number] 08:13:00* Test Item Value Reference Range Interpretation Comments Urine Leukocyte Esterase (test code = 5799-2) NEGATIVE NEGATIVE [facility] nitrite [id number] 08:13:00* Test Item Value Reference Range Interpretation Comments Urine Nitrite (test code = 36173-5) NEGATIVE NEGATIVE [facility] protein measurement by test strip (mass/volume)2019-12-26 08:13:00* Test Item Value Reference Range Interpretation Comments Urine Protein (test code = 5804-0) 1+ NEGATIVE [facility] glucose [id number] 08:13:00* Test Item Value Reference Range Interpretation Comments Urine Glucose (UA) (test code = 2349-9) NEGATIVE NEGATIVE [facility] ketones detection by automated test [id number] 08:13:00* Test Item Value Reference Range Interpretation Comments Urine Ketones (test code = 37391-7) NEGATIVE NEGATIVE [facility] opiates screening [id number] 08:13:00* Test Item Value Reference Range Interpretation Comments Urine Opiates Screen (test code = 29557-4) POSITIVE NEGATIVE This test provides only a screen. Positive results should be repeated by a confi rmatory test.[facility]ville[facility], urine 2019-12-26 08:13:00* Test Item Value Reference Range Interpretation Comments Urine Barbiturates Screen (test code = 814836646) NEGATIVE NEGA TIVE [facility] phencyclidine detection by screening [id number] 08:13:00* Test Item Value Reference Range Interpretation Comments Urine Phencyclidine Screen (test code = 08575-0) NEGATIVE NEGAT ANGY [facility] amphetamines detection by screen method > 1000 [id number] 08:13:00* Test Item Value Reference Range Interpretation Comments Urine Amphetamines Screen (test code = 62711-7) NEGATIVE NEGATI VE [facility]villeFluoroscopic procedure less than one hour [id number] 08:13:00* Test Item Value Reference Range Interpretation Comments Urine Methamphetamines Screen (test code = Urine Metha mphetamines Screen) NEGATIVE NEGATIVE [facility] benzodiazepines detection by screening [id number] 08:13:00* Test Item Value Reference Range Interpretation Comments Urine Benzodiazepines Screen (test code = 70117-1) NEGATIVE NEG ATIVE [facility]ville[facility] cocaine measurement (mass/volume) 2019-12-26 08:13:00* Test Item Value Reference Range Interpretation Comments Urine Cocaine Screen (test code = 3398-5) NEGATIVE NEGATIVE [facility]ville[facility] cannabinoids detection by screening [id number] 08:13:00* Test Item Value Reference Range Interpretation Comments Urine Cannabinoids Screen (test code = 87357-2) POSITIVE NEGATI VE This test provides only a screen. Positive results should be repeated by a confi rmatory test.[facility] methadone screen 2019-12-26 08:13:00* Test Item Value Reference Range Interpretation Comments Urine Methadone Screen (test code = 00945-6) NEGATIVE NEGATIVE THESE RESULTS ARE FOR MEDICAL TREATMENT ONLYTHIS REPORT CONTAINS UNCONFIR MED SCREENING RESULTS*POSITIVE RESULTS WILL BE CONFIRMED BY REFERENCE LAB UPON R EQUEST CUT-OFFDRUG CLASS CONCENTRATION ng/mLAmphetamines 1000Methamphetamines 1000Cocaine Metabolite 300Opiate 300Phencyc lidine 25Cannabinoid 50Barbiturates 300Benzodiazepine 300Methadone 300[facility] urobilinogen measurement by test strip (mass/volume)2019-12-26 08:13:00* Test Item Value Reference Range Interpretation Comments Urine Urobilinogen (test code = 91194-8) 0.2 0.2-1 [facility] total bilirubin measurement (mass/volume)2019-12-26 08:13:00* Test Item Value Reference Range Interpretation Comments Urine Bilirubin (test code = 1978-6) NEGATIVE NEGATIVE [facility]ville[facility] erythrocytes [id number] 08:13:00* Test Item Value Reference Range Interpretation Comments Urine Blood (test code = 79965-2) MODERATE NEGATIVE [facility]villeAutomated urine sediment leukocyte count by microscopy (number/high power field)2019-12-26 08:13:00* Test Item Value Reference Range Interpretation Comments Urine WBC (test code = 5821-4) 0-5 0-5 [facility]villeErythrocytes detection in urine sediment by light [id number] 08:13:00* Test Item Value Reference Range Interpretation Comments Urine RBC (test code = 70218-9) 21-50 0-5 [facility]villeBacteria detection in urine sediment by light [id number] 08:13:00* Test Item Value Reference Range Interpretation Comments Urine Bacteria (test code = 45167-9) FEW NONE [facility]villeEpithelial cells detection in urine sediment by light [id number] 08:13:00* Test Item Value Reference Range Interpretation Comments Urine Epithelial Cells (test code = 12644-5) FEW NONE [facility]villeCalcium oxalate crystals detection in urine sediment by light [id number] 08:13:00* Test Item Value Reference Range Interpretation Comments Urine Calcium Oxalate Crystals (test code = 5774-5) FEW FE W [facility]villeMucus detection in urine sediment by light [id number] 08:13:00* Test Item Value Reference Range Interpretation Comments Urine Mucus (test code = 8247-9) MANY RARE [facility]villeBlood leukocytes automated count (number/volume)2019-12-26 06:34:00* Test Item Value Reference Range Interpretation Comments White Blood Count (test code = 6690-2) 5.91 4.8-10.8 [facility]ville[facility] erythrocytes automated count (number/volume)2019-12-26 06:34:00* Test Item Value Reference Range Interpretation Comments Red Blood Count (test code = 789-8) 4.15 4.3-5.7 [facility]villeBlood hemoglobin measurement (moles/volume)2019-12-26 06:34:00* Test Item Value Reference Range Interpretation Comments Hemoglobin (test code = 18359-6) 13.4 14.0-18.0 [facility]villeAutomated blood hematocrit (volume fraction)2019-12-26 06:34:00* Test Item Value Reference Range Interpretation Comments Hematocrit (test code = 4544-3) 39.1 38.2-49.6 [facility]villeAutomated erythrocyte mean corpuscular [id number] 06:34:00* Test Item Value Reference Range Interpretation Comments Mean Corpuscular Volume (test code = 787-2) 94.2 81-99 [facility]villeAutomated erythrocyte mean corpuscular hemoglobin (mass per erythrocyte)2019-12-26 06:34:00* Test Item Value Reference Range Interpretation Comments Mean Corpuscular Hemoglobin (test code = 785-6) 32.3 28-32 [facility]villeAutomated erythrocyte mean corpuscular hemoglobin concentration measurement (mass/volume)2019-12-26 06:34:00* Test Item Value Reference Range Interpretation Comments Mean Corpuscular Hemoglobin Concent (test code = 786-4) 34.3 31-35 [facility] BrownsvilleRDW [id number]-[id number] 06:34:00* Test Item Value Reference Range Interpretation Comments Red Cell Distribution Width (test code = 74282-4) 11.7 11.7 -14.4 [facility]villeAutomated blood platelet count (count/volume)2019-12-26 06:34:00* Test Item Value Reference Range Interpretation Comments Platelet Count (test code = 777-3) 222 140-360 [facility] segmented neutrophil count as percentage of total [id number] 06:34:00* Test Item Value Reference Range Interpretation Comments Neutrophils (%) (Auto) (test code = 04621-7) 46.4 38.7-80.0 [facility]villeAutomated blood lymphocyte count as percentage ot total [id number] 06:34:00* Test Item Value Reference Range Interpretation Comments Lymphocytes (%) (Auto) (test code = 736-9) 44.8 18.0-39.1 [facility]villeAutomated blood monocyte count as percentage of total pdnhikeuqm8922-35-43 06:34:00* Test Item Value Reference Range Interpretation Comments Monocytes (%) (Auto) (test code = 5905-5) 7.8 4.4-11.3 [facility]villeAutomated blood eosinophil count as percentage of total spcabktpjb4967-05-90 06:34:00* Test Item Value Reference Range Interpretation Comments Eosinophils (%) (Auto) (test code = 713-8) 0.5 0.0-6.0 [facility]villeAuthugh chatham memorial hospitaled blood basophil count as percentage of total [id number] 06:34:00* Test Item Value Reference Range Interpretation Comments Basophils (%) (Auto) (test code = 706-2) 0.3 0.0-1.0 [facility]villeFluoroscopic procedure less than one hour [id number] 06:34:00* Test Item Value Reference Range Interpretation Comments IM GRANULOCYTES % (test code = IM GRANULOCYTES %) 0.2 0.0- 1.0 [facility]villeAutomated blood neutrophil count 2019-12-26 06:34:00* Test Item Value Reference Range Interpretation Comments Neutrophils # (Auto) (test code = 751-8) 2.7 2.1-6.9 [facility]villeBlood lymphocytes count (number/volume) 2019-12-26 06:34:00* Test Item Value Reference Range Interpretation Comments Lymphocytes # (Auto) (test code = 63068-7) 2.7 1.0-3.2 [facility]villeBlood monocytes automated count (number/volume)2019-12-26 06:34:00* Test Item Value Reference Range Interpretation Comments Monocytes # (Auto) (test code = 742-7) 0.5 0.2-0.8 [facility]villeAutomated blood eosinophil count 2019-12-26 06:34:00* Test Item Value Reference Range Interpretation Comments Eosinophils # (Auto) (test code = 711-2) 0.0 0.0-0.4 [facility]villeAutomated blood basophil count (count/volume)2019-12-26 06:34:00* Test Item Value Reference Range Interpretation Comments Basophils # (Auto) (test code = 704-7) 0.0 0.0-0.1 [facility]villeFluoroscopic procedure less than one hour [id number] 06:34:00* Test Item Value Reference Range Interpretation Comments Absolute Immature Granulocyte (auto (jourdan t code = Absolute Immature Granulocyte (auto) 0.01 0-0.1 [facility] sodium measurement (moles/volume)2019-12-26 06:34:00* Test Item Value Reference Range Interpretation Comments Sodium Level (test code = 2951-2) 138 136-145 [facility]um or plasma potassium measurement (moles/volume)2019-12-26 06:34:00* Test Item Value Reference Range Interpretation Comments Potassium Level (test code = 2823-3) 3.2 3.5-5.1 [facility] or plasma chloride measurement (moles/volume)2019-12-26 06:34:00* Test Item Value Reference Range Interpretation Comments Chloride Level (test code = 2075-0) 102 98-107 [facility]um or plasma carbon dioxide, total measurement (moles/volume)2019-12-26 06:34:00* Test Item Value Reference Range Interpretation Comments Carbon Dioxide Level (test code = 2028-9) 21 22-29 [facility]um or plasma anion [id number] 06:34:00* Test Item Value Reference Range Interpretation Comments Anion Gap (test code = 99197-8) 18.2 8-16 [facility] or plasma urea nitrogen measurement (mass/volume)2019-12-26 06:34:00* Test Item Value Reference Range Interpretation Comments Blood Urea Nitrogen (test code = 3094-0) 7 7-26 [facility] [facility] (mass/volume)2019-12-26 06:34:00* Test Item Value Reference Range Interpretation Comments Creatinine (test code = 2160-0) 1.54 0.72-1.25 [facility] urea nitrogen/creatinine mass [id number] 06:34:00* Test Item Value Reference Range Interpretation Comments BUN/Creatinine Ratio (test code = 3097-3) 5 - [facility]villeEstimated glomerular filtration rate (GFR) lpjiostqduyrj5952-42-69 06:34:00* Test Item Value Reference Range Interpretation Comments Estimat Glomerular Filtration Rate (test code = 312384508) > 60 >60 Ranges were taken from the National Kidney Disease Education Program and the [facility] literature.Reference ranges:60 or greater: Jfqvqs02-90 ( for 3 consecutive months): Chronic kidney disease 15 or less: [facility] failure[facility]villeGlucose pmewszmhyfa6946-67-94 06:34:00* Test Item Value Reference Range Interpretation Comments Glucose Level (test code = DLA5908) 100 74-118 [facility] calcium [facility] (mass/volume)2019-12-26 06:34:00* Test Item Value Reference Range Interpretation Comments Calcium Level (test code = 30803-0) 10.0 8.4-10.2 [facility] total bilirubin measurement (mass/volume)2019-12-26 06:34:00* Test Item Value Reference Range Interpretation Comments Total Bilirubin (test code = 1975-2) 1.0 0.2-1.2 [facility] [place]villeFluoroscopic procedure less than one hour rgnmunwz5759-69-27 06:34:00* Test Item Value Reference Range Interpretation Comments Aspartate Amino Transf (AST/SGOT) (test code = Aspartate Amino Transf (AST/SGOT)) 16 5-34 [facility] alanine aminotransferase measurement (enzymatic activity/volume)2019-12-26 06:34:00* Test Item Value Reference Range Interpretation Comments Alanine Aminotransferase (ALT/SGPT) (test code = 1742-6) 15 0-55 [facility] protein measurement (mass/volume)2019-12-26 06:34:00* Test Item Value Reference Range Interpretation Comments Total Protein (test code = 2885-2) 8.4 6.5-8.1 [facility] albumin measurement (mass/volume)2019-12-26 06:34:00* Test Item Value Reference Range Interpretation Comments Albumin (test code = 1751-7) 4.6 3.5-5.0 [facility] [place]villePlasma globulin measurement (mass/volume) 2019-12-26 06:34:00* Test Item Value Reference Range Interpretation Comments Globulin (test code = 77206-9) 3.8 2.3-3.5 [facility] albumin/globulin mass dtjgp1199-00-20 06:34:00* Test Item Value Reference Range Interpretation Comments Albumin/Globulin Ratio (test code = 1759-0) 1.2 0.8-2.0 [facility] alkaline phosphatase measurement (enzymatic activity/volume)2019-12-26 06:34:00* Test Item Value Reference Range Interpretation Comments Alkaline Phosphatase (test code = 6768-6) 85 40-150 [facility] lipase measurement (enzymatic activity/volume)2019-12-26 06:34:00* Test Item Value Reference Range Interpretation Comments Lipase (test code = 3040-3) 16 8-78 [facility]villeCHEST SINGLE (PORTABLE)2019-12-24 14:44:00 [place] [address] Patient Name: QUYEN KIM MR #: [id number] : 1980 Age/Sex: 39/M Req #: [id number] Adm Physician: Ordered by: WESLY SPICER DO Report #: [id number] Location: ER Room/Bed: Procedure: [id number] 1 DX/CHEST SINGLE (PORTABLE) Exam Date: 12/24/19 Brennan lorenzo Time: 1405 REPORT STATUS: Signed EXAMINATION: CHEST SINGLE (PORTABLE) INDICATION: Pain. Nausea and v omiting. COMPARISON: 04/04/2019. FINDINGS: TUBES and LINES: No ne. LUNGS: Lungs are well inflated. Lungs are clear. There is no eviden ce of pneumonia or pulmonary edema. PLEURA: No pleural effusion or pneum othorax. HEART AND MEDIASTINUM: The cardiomediastinal silhouette is unrema rkable. BONES AND SOFT TISSUES: No acute osseous lesion. Soft tissues are unremarkable. UPPER ABDOMEN: No free air under the diaphragm. IMPRESSION: No acute thoracic abnormality. Signed by: Dr. Renetta Medel M.D. on 12/24/2019 2:46 PM Dictated By: ROXANN MEDEL MD, MD 1446 Transcribed B y: JEANNE on 12/24/191445 COPY TO: WESLY SPICER DO Fluoroscopic procedure less than one hour wzptxacm9350-08-84 14:04:00* Test Item Value Reference Range Interpretation Comments Coronavirus (PCR) (test code = Coronavirus (PCR)) NOT DETECTED NOTD ETECTED SARS-COV2/RT-PCR CEPHEIDResults are for the detection of SARS-COV-2 RNA. The JESSY S-COV-2 RNA is generally detectable in nasopharyngeal swab specimens during the acute phase of infection. Positive results are indicitive of active infection wi th SARS-COV-2; clinical correlation with patient history and [...] EUA is revoked under 564(g) of the ACT.[facility]villeFluoroscopic procedure less than one hour mbvpgzwj4086-09-86 14:04:00* Test Item Value Reference Range Interpretation Comments Coronavirus (PCR) (test code = Coronavirus (PCR)) [...] EUA is revoked under 564(g) of the ACT.[facility]villeBlood leukocytes automated count (number/volume) 2019-12-24 13:46:00* Test Item Value Reference Range Interpretation Comments White Blood Count (test code = 6690-2) 6.04 4.8-10.8 [facility]villeBlood erythrocytes automated count (number/volume)2019-12-24 13:46:00* Test Item Value Reference Range Interpretation Comments Red Blood Count (test code = 789-8) 4.80 4.3-5.7 [facility]villeBlood hemoglobin measurement (moles/volume)2019-12-24 13:46:00* Test Item Value Reference Range Interpretation Comments Hemoglobin (test code = 79263-2) 15.6 14.0-18.0 [facility]villeAutomated blood hematocrit (volume fraction)2019-12-24 13:46:00* Test Item Value Reference Range Interpretation Comments Hematocrit (test code = 4544-3) 44.5 38.2-49.6 [facility] BrownsvilleAutomated erythrocyte mean corpuscular fbnxys4016-95-49 13:46:00* Test Item Value Reference Range Interpretation Comments Mean Corpuscular Volume (test code = 787-2) 92.7 81-99 [facility]villeAutomated erythrocyte mean corpuscular hemoglobin (mass per erythrocyte)2019-12-24 13:46:00* Test Item Value Reference Range Interpretation Comments Mean Corpuscular Hemoglobin (test code = 785-6) 32.5 28-32 [facility]villeAutomated erythrocyte mean corpuscular hemoglobin concentration measurement (mass/volume)2019-12-24 13:46:00* Test Item Value Reference Range Interpretation Comments Mean Corpuscular Hemoglobin Concent (test code = 786-4) 35.1 31-35 [facility] BrownsvilleRDW AnjGl-Lpx5136-91-23 13:46:00* Test Item Value Reference Range Interpretation Comments Red Cell Distribution Width (test code = 50025-3) 11.5 11.7 -14.4 [facility]villeAutomated blood platelet count (count/volume)2019-12-24 13:46:00* Test Item Value Reference Range Interpretation Comments Platelet Count (test code = 777-3) 262 140-360 [facility]villeAutomated blood segmented neutrophil count as percentage of total dzbdheqqxp2941-74-35 13:46:00* Test Item Value Reference Range Interpretation Comments Neutrophils (%) (Auto) (test code = 52763-3) 64.1 38.7-80.0 [facility]villeAutomated blood lymphocyte count as percentage ot total nfnimdhfvm4662-08-98 13:46:00* Test Item Value Reference Range Interpretation Comments Lymphocytes (%) (Auto) (test code = 736-9) 29.1 18.0-39.1 [facility]villeAutomated blood monocyte count as percentage of total asshoublxh7364-66-75 13:46:00* Test Item Value Reference Range Interpretation Comments Monocytes (%) (Auto) (test code = 5905-5) 6.1 4.4-11.3 [facility]villeAutomated blood eosinophil count as percentage of total noyxdcdkaf9721-34-31 13:46:00* Test Item Value Reference Range Interpretation Comments Eosinophils (%) (Auto) (test code = 713-8) 0.2 0.0-6.0 [facility]villeAutomated blood basophil count as percentage of total cfvspyqoxd7724-14-40 13:46:00* Test Item Value Reference Range Interpretation Comments Basophils (%) (Auto) (test code = 706-2) 0.3 0.0-1.0 [facility]villeFluoroscopic procedure less than one hour pialqntm3090-40-22 13:46:00* Test Item Value Reference Range Interpretation Comments IM GRANULOCYTES % (test code = IM GRANULOCYTES %) 0.2 0.0- 1.0 [facility]villeAutomated blood neutrophil count 2019-12-24 13:46:00* Test Item Value Reference Range Interpretation Comments Neutrophils # (Auto) (test code = 751-8) 3.9 2.1-6.9 [facility]villeBlood lymphocytes count (number/volume) 2019-12-24 13:46:00* Test Item Value Reference Range Interpretation Comments Lymphocytes # (Auto) (test code = 28209-6) 1.8 1.0-3.2 [facility]villeBlood monocytes automated count (number/volume)2019-12-24 13:46:00* Test Item Value Reference Range Interpretation Comments Monocytes # (Auto) (test code = 742-7) 0.4 0.2-0.8 [facility]villeAutomated blood eosinophil count 2019-12-24 13:46:00* Test Item Value Reference Range Interpretation Comments Eosinophils # (Auto) (test code = 711-2) 0.0 0.0-0.4 [facility]villeAutomated blood basophil count (count/volume)2019-12-24 13:46:00* Test Item Value Reference Range Interpretation Comments Basophils # (Auto) (test code = 704-7) 0.0 0.0-0.1 [facility]villeFluoroscopic procedure less than one hour jsxfmylm1174-45-86 13:46:00* Test Item Value Reference Range Interpretation Comments Absolute Immature Granulocyte (auto (jourdan t code = Absolute Immature Granulocyte (auto) 0.01 0-0.1 [facility]villeUrine opiates screening svvb0392-38-03 13:46:00* Test Item Value Reference Range Interpretation Comments Urine Opiates Screen (test code = 20732-0) POSITIVE NEGATIVE This test provides only a screen. Positive results should be repeated by a confi rmatory test.[facility]villeBarbiturates screen, urine 2019-12-24 13:46:00* Test Item Value Reference Range Interpretation Comments Urine Barbiturates Screen (test code = 301103603) NEGATIVE NEGA TIVE [facility] BrownsvilleUrine phencyclidine detection by screening dblubc9858-28-68 13:46:00* Test Item Value Reference Range Interpretation Comments Urine Phencyclidine Screen (test code = 52528-1) NEGATIVE NEGAT ANGY [facility] BrownsvilleUrine amphetamines detection by screen method > 1000 ng/pQ2608-30-49 13:46:00* Test Item Value Reference Range Interpretation Comments Urine Amphetamines Screen (test code = 50443-5) NEGATIVE NEGATI VE [facility]villeFluoroscopic procedure less than one hour dapnunjh1062-90-99 13:46:00* Test Item Value Reference Range Interpretation Comments Urine Methamphetamines Screen (test code = Urine Metha mphetamines Screen) NEGATIVE NEGATIVE [facility]villeUrine benzodiazepines detection by screening higfbr1132-81-97 13:46:00* Test Item Value Reference Range Interpretation Comments Urine Benzodiazepines Screen (test code = 06679-8) NEGATIVE NEG ATIVE [facility]villeUrine cocaine measurement (mass/volume) 2019-12-24 13:46:00* Test Item Value Reference Range Interpretation Comments Urine Cocaine Screen (test code = 3398-5) NEGATIVE NEGATIVE [facility]villeUrine cannabinoids detection by screening czcbft3805-59-62 13:46:00* Test Item Value Reference Range Interpretation Comments Urine Cannabinoids Screen (test code = 13911-3) POSITIVE NEGATI VE This test provides only a screen. Positive results should be repeated by a confi rmatory test.[facility]villeUrine methadone screen 2019-12-24 13:46:00* Test Item Value Reference Range Interpretation Comments Urine Methadone Screen (test code = 32340-8) NEGATIVE NEGATIVE THESE RESULTS ARE FOR MEDICAL TREATMENT ONLYTHIS REPORT CONTAINS UNCONFIR MED SCREENING RESULTS*POSITIVE RESULTS WILL BE CONFIRMED BY REFERENCE LAB UPON R EQUEST CUT-OFFDRUG CLASS CONCENTRATION ng/mLAmphetamines 1000Methamphetamines 1000Cocaine Metabolite 300Opiate 300Phencyc lidine 25Cannabinoid 50Barbiturates 300Benzodiazepine 300Methadone 300[facility] lipase measurement (enzymatic activity/volume)2019-12-24 13:46:00* Test Item Value Reference Range Interpretation Comments Lipase (test code = 3040-3) 51 8-78 [facility] sodium measurement (moles/volume)2019-12-24 13:36:00* Test Item Value Reference Range Interpretation Comments Sodium Level (test code = 2951-2) 142 136-145 [facility] plasma potassium measurement (moles/volume)2019-12-24 13:36:00* Test Item Value Reference Range Interpretation Comments Potassium Level (test code = 2823-3) 3.3 3.5-5.1 [facility] chloride measurement (moles/volume)2019-12-24 13:36:00* Test Item Value Reference Range Interpretation Comments Chloride Level (test code = 2075-0) 105 98-107 [facility] plasma carbon dioxide, total measurement (moles/volume)2019-12-24 13:36:00* Test Item Value Reference Range Interpretation Comments Carbon Dioxide Level (test code = 2028-9) 18 22-29 [facility] plasma anion lxy3394-84-09 13:36:00* Test Item Value Reference Range Interpretation Comments Anion Gap (test code = 24913-5) 22.3 8-16 [facility] plasma urea nitrogen measurement (mass/volume)2019-12-24 13:36:00* Test Item Value Reference Range Interpretation Comments Blood Urea Nitrogen (test code = 3094-0) 8 7-26 [facility] plasma creatinine measurement (mass/volume)2019-12-24 13:36:00* Test Item Value Reference Range Interpretation Comments Creatinine (test code = 2160-0) 1.99 0.72-1.25 [facility] plasma urea nitrogen/creatinine mass tghxh7773-52-34 13:36:00* Test Item Value Reference Range Interpretation Comments BUN/Creatinine Ratio (test code = 3097-3) 4 6-25 [facility]villeEstimated glomerular filtration rate (GFR) hlmiwtqtxfpmt2329-00-06 13:36:00* Test Item Value Reference Range Interpretation Comments Estimat Glomerular Filtration Rate (test code = 386143526) 45 >60 Ranges were taken from the National Kidney Disease Education Program and the [facility] literature.Reference ranges:60 or greater: Jaopmz92-82 ( for 3 consecutive months): Chronic kidney disease 15 or less: Kid[facility] failureVal[facility] BrownsvilleGlucose ttuhvyqpkqn9502-11-16 13:36:00* Test Item Value Reference Range Interpretation Comments Glucose Level (test code = RYF5071) 125 74-118 [facility] calcium measurement (mass/volume)2019-12-24 13:36:00* Test Item Value Reference Range Interpretation Comments Calcium Level (test code = 98542-8) 10.8 8.4-10.2 [facility] plasma total bilirubin measurement (mass/volume)2019-12-24 13:36:00* Test Item Value Reference Range Interpretation Comments Total Bilirubin (test code = 1975-2) 0.7 0.2-1.2 [facility]villeFluoroscopic procedure less than one hour uuohvwsc1918-36-70 13:36:00* Test Item Value Reference Range Interpretation Comments Aspartate Amino Transf (AST/SGOT) (test code = Aspartate Amino Transf (AST/SGOT)) 18 5-34 [facility] plasma alanine aminotransferase measurement (enzymatic activity/volume)2019-12-24 13:36:00* Test Item Value Reference Range Interpretation Comments Alanine Aminotransferase (ALT/SGPT) (test code = 1742-6) 15 0-55 [facility] protein measurement (mass/volume)2019-12-24 13:36:00* Test Item Value Reference Range Interpretation Comments Total Protein (test code = 2885-2) 9.4 6.5-8.1 [facility] plasma albumin measurement (mass/volume)2019-12-24 13:36:00* Test Item Value Reference Range Interpretation Comments Albumin (test code = 1751-7) 5.1 3.5-5.0 [facility]villePlasma globulin measurement (mass/volume) 2019-12-24 13:36:00* Test Item Value Reference Range Interpretation Comments Globulin (test code = 05999-5) 4.3 2.3-3.5 [facility] plasma albumin/globulin mass fnxxr1034-45-63 13:36:00* Test Item Value Reference Range Interpretation Comments Albumin/Globulin Ratio (test code = 1759-0) 1.2 0.8-2.0 [facility] plasma alkaline phosphatase measurement (enzymatic activity/volume)2019-12-24 13:36:00* Test Item Value Reference Range Interpretation Comments Alkaline Phosphatase (test code = 6768-6) 93 40-150 [facility]villeBlood leukocytes automated count (number/volume)2019-12-15 20:40:00* Test Item Value Reference Range Interpretation Comments White Blood Count (test code = 6690-2) 7.38 4.8-10.8 [facility]villeBlood erythrocytes automated count (number/volume)2019-12-15 20:40:00* Test Item Value Reference Range Interpretation Comments Red Blood Count (test code = 789-8) 4.22 4.3-5.7 [facility]villeBlood hemoglobin measurement (moles/volume)2019-12-15 20:40:00* Test Item Value Reference Range Interpretation Comments Hemoglobin (test code = 23381-6) 13.8 14.0-18.0 [facility] BrownsvilleAutomated blood hematocrit (volume fraction)2019-12-15 20:40:00* Test Item Value Reference Range Interpretation Comments Hematocrit (test code = 4544-3) 41.0 38.2-49.6 [facility] BrownsvilleAutomated erythrocyte mean corpuscular qnqiod3195-07-43 20:40:00* Test Item Value Reference Range Interpretation Comments Mean Corpuscular Volume (test code = 787-2) 97.2 81-99 [facility] BrownsvilleAutomated erythrocyte mean corpuscular hemoglobin (mass per erythrocyte)2019-12-15 20:40:00* Test Item Value Reference Range Interpretation Comments Mean Corpuscular Hemoglobin (test code = 785-6) 32.7 28-32 [facility]villeAutomated erythrocyte mean corpuscular hemoglobin concentration measurement (mass/volume)2019-12-15 20:40:00* Test Item Value Reference Range Interpretation Comments Mean Corpuscular Hemoglobin Concent (test code = 786-4) 33.7 31-35 [facility] BrownsvilleRDW EtlXa-Jcn1631-91-14 20:40:00* Test Item Value Reference Range Interpretation Comments Red Cell Distribution Width (test code = 66741-5) 11.9 11.7 -14.4 [facility]villeAutomated blood platelet count (count/volume)2019-12-15 20:40:00* Test Item Value Reference Range Interpretation Comments Platelet Count (test code = 777-3) 242 140-360 [facility]villeAutomated blood segmented neutrophil count as percentage of total ndakvmqtlv3094-92-04 20:40:00* Test Item Value Reference Range Interpretation Comments Neutrophils (%) (Auto) (test code = 37080-1) 75.8 38.7-80.0 [facility] BrownsvilleAutomated blood lymphocyte count as percentage ot total oxpugmltpn3200-29-63 20:40:00* Test Item Value Reference Range Interpretation Comments Lymphocytes (%) (Auto) (test code = 736-9) 19.8 18.0-39.1 [facility]villeAutomated blood monocyte count as percentage of total fvgqhaojmd9620-23-25 20:40:00* Test Item Value Reference Range Interpretation Comments Monocytes (%) (Auto) (test code = 5905-5) 3.9 4.4-11.3 [facility]villeAutomated blood eosinophil count as percentage of total qeicdszwjz4689-73-45 20:40:00* Test Item Value Reference Range Interpretation Comments Eosinophils (%) (Auto) (test code = 713-8) 0.0 0.0-6.0 [facility]villeAutomated blood basophil count as percentage of total bmvlkqkubj4167-22-97 20:40:00* Test Item Value Reference Range Interpretation Comments Basophils (%) (Auto) (test code = 706-2) 0.4 0.0-1.0 [facility]villeFluoroscopic procedure less than one hour egbykkod9604-37-80 20:40:00* Test Item Value Reference Range Interpretation Comments IM GRANULOCYTES % (test code = IM GRANULOCYTES %) 0.1 0.0- 1.0 [facility]villeAutomated blood neutrophil count 2019-12-15 20:40:00* Test Item Value Reference Range Interpretation Comments Neutrophils # (Auto) (test code = 751-8) 5.6 2.1-6.9 [facility]villeBlood lymphocytes count (number/volume) 2019-12-15 20:40:00* Test Item Value Reference Range Interpretation Comments Lymphocytes # (Auto) (test code = 67262-3) 1.5 1.0-3.2 [facility]villeBlood monocytes automated count (number/volume)2019-12-15 20:40:00* Test Item Value Reference Range Interpretation Comments Monocytes # (Auto) (test code = 742-7) 0.3 0.2-0.8 [facility]villeAutomated blood eosinophil count 2019-12-15 20:40:00* Test Item Value Reference Range Interpretation Comments Eosinophils # (Auto) (test code = 711-2) 0.0 0.0-0.4 [facility]villeAutomated blood basophil count (count/volume)2019-12-15 20:40:00* Test Item Value Reference Range Interpretation Comments Basophils # (Auto) (test code = 704-7) 0.0 0.0-0.1 [facility]villeFluoroscopic procedure less than one hour dtmtqofh4260-17-80 20:40:00* Test Item Value Reference Range Interpretation Comments Absolute Immature Granulocyte (auto (jourdan t code = Absolute Immature Granulocyte (auto) 0.01 0-0.1 [facility] sodium measurement (moles/volume)2019-12-15 20:40:00* Test Item Value Reference Range Interpretation Comments Sodium Level (test code = 2951-2) 142 136-145 [facility] plasma potassium measurement (moles/volume)2019-12-15 20:40:00* Test Item Value Reference Range Interpretation Comments Potassium Level (test code = 2823-3) 3.6 3.5-5.1 [facility] plasma chloride measurement (moles/volume)2019-12-15 20:40:00* Test Item Value Reference Range Interpretation Comments Chloride Level (test code = 2075-0) 108 98-107 [facility] plasma carbon dioxide, total measurement (moles/volume)2019-12-15 20:40:00* Test Item Value Reference Range Interpretation Comments Carbon Dioxide Level (test code = 2028-9) 20 22-29 [facility] plasma anion qds3552-53-12 20:40:00* Test Item Value Reference Range Interpretation Comments Anion Gap (test code = 85857-5) 17.6 8-16 [facility] urea nitrogen measurement (mass/volume)2019-12-15 20:40:00* Test Item Value Reference Range Interpretation Comments Blood Urea Nitrogen (test code = 3094-0) 14 7-26 [facility] plasma creatinine measurement (mass/volume)2019-12-15 20:40:00* Test Item Value Reference Range Interpretation Comments Creatinine (test code = 2160-0) 1.55 0.72-1.25 [facility] plasma urea nitrogen/creatinine mass hjtqh4763-00-29 20:40:00* Test Item Value Reference Range Interpretation Comments BUN/Creatinine Ratio (test code = 3097-3) 9 6- [facility]villeEstimated glomerular filtration rate (GFR) wotuddywssmct2271-27-47 20:40:00* Test Item Value Reference Range Interpretation Comments Estimat Glomerular Filtration Rate (test code = 560642934) 60 >60 Ranges were taken from the National Kidney Disease Education Program and the [facility] Foundation literature.Reference ranges:60 or greater: Wnhomp25-83 ( for 3 consecutive months): Chronic kidney disease 15 or less: Kidney failureVal[facility] BrownsvilleGlucose fqsomubztzk9272-85-29 20:40:00* Test Item Value Reference Range Interpretation Comments Glucose Level (test code = [id number] [phone] [facility] calcium [facility] (mass/volume)2019-12-15 20:40:00* Test Item Value Reference Range Interpretation Comments Calcium Level (test code = 30002-8) 10.0 8.4-10.2 [facility] total bilirubin measurement (mass/volume)2019-12-15 20:40:00* Test Item Value Reference Range Interpretation Comments Total Bilirubin (test code = 1975-2) 0.9 0.2-1.2 [facility]villeFluoroscopic procedure less than one hour [id number] 20:40:00* Test Item Value Reference Range Interpretation Comments Aspartate Amino Transf (AST/SGOT) (test code = Aspartate Amino Transf (AST/SGOT)) 18 5-34 [facility] alanine aminotransferase measurement (enzymatic activity/volume)2019-12-15 20:40:00* Test Item Value Reference Range Interpretation Comments Alanine Aminotransferase (ALT/SGPT) (test code = 1742-6) 18 0-55 [facility] protein measurement (mass/volume)2019-12-15 20:40:00* Test Item Value Reference Range Interpretation Comments Total Protein (test code = 2885-2) 8.8 6.5-8.1 [facility] albumin measurement (mass/volume)2019-12-15 20:40:00* Test Item Value Reference Range Interpretation Comments Albumin (test code = 1751-7) 4.8 3.5-5.0 [facility]villePlasma globulin measurement (mass/volume) 2019-12-15 20:40:00* Test Item Value Reference Range Interpretation Comments Globulin (test code = 40886-4) 4.0 2.3-3.5 [facility] albumin/globulin mass oncas9872-45-70 20:40:00* Test Item Value Reference Range Interpretation Comments Albumin/Globulin Ratio (test code = 1759-0) 1.2 0.8-2.0 [facility] alkaline phosphatase measurement (enzymatic activity/volume)2019-12-15 20:40:00* Test Item Value Reference Range Interpretation Comments Alkaline Phosphatase (test code = 6768-6) 89 40-150 [facility] lipase measurement (enzymatic activity/volume)2019-12-15 20:40:00* Test Item Value Reference Range Interpretation Comments Lipase (test code = 3040-3) 15 8-78 [facility]villeCT [facility]BD[facility]PELVIS [id number] 10:01:00 [facility] [address] [place] [address] Patient Name: QUYEN KIM MR #: [id number] : 1980 Age/Sex: 39/M Req #: [id number] Adm Physician: Ordered by: GEOVANI MONROY DO Report #: [id number] Location: ER Room/Bed: Procedure: [id number] CT/CT ABDOMEN /PELVIS W Exam Date: 12/14/19 Exam Time: 09 REPORT STATUS: Signed EXAMINATION: CT of the [...] PY TO: GEOVANI MONROY DO Urine color rtykrfeajcztd9649-45-37 09:35:00* Test Item Value Reference Range Interpretation Comments Urine Color (test code = 5778-6) ORANGE YELLOW [facility]villeUrine [id number] 09:35:00* Test Item Value Reference Range Interpretation Comments Urine Clarity (test code = 08380-1) SL CLOUDY CLEAR [facility] gravity of Urine by Test strip 2019-12-14 09:35:00* Test Item Value Reference Range Interpretation Comments Urine Specific [place] (test code = 5811-5) >=1.030 1.010-1.02 5 [facility]villeU[facility] pH measurement by automated test gblvv2662-89-84 09:35:00* Test Item Value Reference Range Interpretation Comments Urine pH (test code = 43699-0) 6 5-7 [facility]villeUrine leukocyte esterase detection by snrkgxds1136-24-08 09:35:00* Test Item Value Reference Range Interpretation Comments Urine Leukocyte Esterase (test code = 5799-2) NEGATIVE NEGATIVE [facility]villeUrine nitrite vcoljytat4542-29-41 09:35:00* Test Item Value Reference Range Interpretation Comments Urine Nitrite (test code = 34020-1) NEGATIVE NEGATIVE [facility]villeUrine protein measurement by test strip (mass/volume)2019-12-14 09:35:00* Test Item Value Reference Range Interpretation Comments Urine Protein (test code = 5804-0) 2+ NEGATIVE [facility]villeUrine glucose nqpjakatj7469-85-17 09:35:00* Test Item Value Reference Range Interpretation Comments Urine Glucose (UA) (test code = 2349-9) NEGATIVE NEGATIVE [facility]villeUrine ketones detection by automated test [id number] 09:35:00* Test Item Value Reference Range Interpretation Comments Urine Ketones (test code = 80928-6) 2+ NEGATIVE [facility]villeUrine opiates screening [id number] 09:35:00* Test Item Value Reference Range Interpretation Comments Urine Opiates Screen (test code = 62348-7) POSITIVE NEGATIVE This test provides only a screen. Positive results should be repeated by a confi rmatory test.[facility]villeBarbiturates screen, urine 2019-12-14 09:35:00* Test Item Value Reference Range Interpretation Comments Urine Barbiturates Screen (test code = 192978508) NEGATIVE NEGA TIVE [facility]villeUrine phencyclidine detection by screening pseuef3223-57-26 09:35:00* Test Item Value Reference Range Interpretation Comments Urine Phencyclidine Screen (test code = 92092-0) NEGATIVE NEGAT ANGY [facility]villeUrine amphetamines detection by screen method > 1000 [id number]/mM8493-31-63 09:35:00* Test Item Value Reference Range Interpretation Comments Urine Amphetamines Screen (test code = 21659-7) NEGATIVE NEGATI VE [facility]villeFluoroscopic procedure less than one hour syjywnbi3484-98-17 09:35:00* Test Item Value Reference Range Interpretation Comments Urine Methamphetamines Screen (test code = Urine Metha mphetamines Screen) NEGATIVE NEGATIVE [facility]villeUrine benzodiazepines detection by screening lxetxg9317-35-30 09:35:00* Test Item Value Reference Range Interpretation Comments Urine Benzodiazepines Screen (test code = 13086-2) NEGATIVE NEG ATIVE [facility]villeU[facility] cocaine measurement (mass/volume) 2019-12-14 09:35:00* Test Item Value Reference Range Interpretation Comments Urine Cocaine Screen (test code = 3398-5) POSITIVE NEGATIVE This test provides only a screen. Positive results should be repeated by a confi rmatory test.[facility]villeUrine cannabinoids detection by screening hrljmv7649-53-80 09:35:00* Test Item Value Reference Range Interpretation Comments Urine Cannabinoids Screen (test code = 73366-8) POSITIVE NEGATI VE This test provides only a screen. Positive results should be repeated by a confi rmatory test.[facility]villeUrine methadone screen 2019-12-14 09:35:00* Test Item Value Reference Range Interpretation Comments Urine Methadone Screen (test code = 11802-0) NEGATIVE NEGATIVE THESE RESULTS ARE FOR MEDICAL TREATMENT ONLYTHIS REPORT CONTAINS UNCONFIR MED SCREENING RESULTS*POSITIVE RESULTS WILL BE CONFIRMED BY REFERENCE LAB UPON R EQUEST CUT-OFFDRUG CLASS CONCENTRATION ng/mLAmphetamines 1000Methamphetamines 1000Cocaine Metabolite 300Opiate 300Phencyc lidine 25Cannabinoid 50Barbiturates 300Benzodiazepine 300Methadone 300[facility] CenterU[facility] urobilinogen measurement by test strip (mass/volume)2019-12-14 09:35:00* Test Item Value Reference Range Interpretation Comments Urine Urobilinogen (test code = 72035-3) 0.2 0.2-1 [facility]villeU[facility] total bilirubin measurement (mass/volume)2019-12-14 09:35:00* Test Item Value Reference Range Interpretation Comments Urine Bilirubin (test code = 1978-6) SMALL NEGATIVE [facility]villeUrine erythrocytes qicrwtewx9039-42-85 09:35:00* Test Item Value Reference Range Interpretation Comments Urine Blood (test code = 71744-5) MODERATE NEGATIVE [facility]villeAutomated urine sediment leukocyte count by microscopy (number/high power field)2019-12-14 09:35:00* Test Item Value Reference Range Interpretation Comments Urine WBC (test code = 5821-4) 11-20 0-5 [facility]villeErythrocytes detection in urine sediment by light wfmlmhtpku1417-05-76 09:35:00* Test Item Value Reference Range Interpretation Comments Urine RBC (test code = 37709-9) 6-10 0-5 [facility]villeBacteria detection in urine sediment by light dcjsqqhjah8002-86-87 09:35:00* Test Item Value Reference Range Interpretation Comments Urine Bacteria (test code = 68898-0) RARE NONE [facility]villeEpithelial cells detection in urine sediment by light vyzsojcapo1185-98-89 09:35:00* Test Item Value Reference Range Interpretation Comments Urine Epithelial Cells (test code = 43113-6) FEW NONE [facility]villeUrine color tjvsapptavvkk4037-74-30 09:35:00* Test Item Value Reference Range Interpretation Comments Urine Color (test code = 5778-6) ORANGE YELLOW [facility]villeUrine pmqakgy6554-10-65 09:35:00* Test Item Value Reference Range Interpretation Comments Urine Clarity (test code = 83964-0) SL CLOUDY CLEAR [facility] gravity of Urine by Test strip 2019-12-14 09:35:00* Test Item Value Reference Range Interpretation Comments Urine Specific [place] (test code = 5811-5) >=1.030 1.010-1.02 5 [facility]villeUrine pH measurement by automated test [id number] 09:35:00* Test Item Value Reference Range Interpretation Comments Urine pH (test code = 88017-2) 6 5-7 [facility]villeUrine leukocyte esterase detection by mfeqnaka9938-45-03 09:35:00* Test Item Value Reference Range Interpretation Comments Urine Leukocyte Esterase (test code = 5799-2) NEGATIVE NEGATIVE [facility]villeUrine nitrite ggraazsvn6661-33-30 09:35:00* Test Item Value Reference Range Interpretation Comments Urine Nitrite (test code = 93093-6) NEGATIVE NEGATIVE [facility]villeUrine protein measurement by test strip (mass/volume)2019-12-14 09:35:00* Test Item Value Reference Range Interpretation Comments Urine Protein (test code = 5804-0) 2+ NEGATIVE [facility]villeUrine glucose xdrrgnwkv6125-90-93 09:35:00* Test Item Value Reference Range Interpretation Comments Urine Glucose (UA) (test code = 2349-9) NEGATIVE NEGATIVE [facility]villeUrine ketones detection by automated test mwepy5650-16-86 09:35:00* Test Item Value Reference Range Interpretation Comments Urine Ketones (test code = 63146-0) 2+ NEGATIVE [facility]villeUrine opiates screening [id number] 09:35:00* Test Item Value Reference Range Interpretation Comments Urine Opiates Screen (test code = 30520-5) POSITIVE NEGATIVE This test provides only a screen. Positive results should be repeated by a confi rmatory test.[facility]villeBarbiturates screen, urine 2019-12-14 09:35:00* Test Item Value Reference Range Interpretation Comments Urine Barbiturates Screen (test code = 402275011) NEGATIVE NEGA TIVE [facility]villeUrine phencyclidine detection by screening hoxnlc6716-64-55 09:35:00* Test Item Value Reference Range Interpretation Comments Urine Phencyclidine Screen (test code = 49679-4) NEGATIVE NEGAT ANGY [facility]villeUrine amphetamines detection by screen method > 1000 ng/gP7814-38-28 09:35:00* Test Item Value Reference Range Interpretation Comments Urine Amphetamines Screen (test code = 16442-6) NEGATIVE NEGATI VE [facility]villeFluoroscopic procedure less than one hour dnddvqmj2660-98-54 09:35:00* Test Item Value Reference Range Interpretation Comments Urine Methamphetamines Screen (test code = Urine Metha mphetamines Screen) NEGATIVE NEGATIVE [facility]villeUrine benzodiazepines detection by screening qhruds2673-01-13 09:35:00* Test Item Value Reference Range Interpretation Comments Urine Benzodiazepines Screen (test code = 73746-0) NEGATIVE NEG ATIVE [facility]villeUrine cocaine measurement (mass/volume) 2019-12-14 09:35:00* Test Item Value Reference Range Interpretation Comments Urine Cocaine Screen (test code = 3398-5) POSITIVE NEGATIVE This test provides only a screen. Positive results should be repeated by a confi rmatory test.[facility]villeUrine cannabinoids detection by screening odrehx9943-32-76 09:35:00* Test Item Value Reference Range Interpretation Comments Urine Cannabinoids Screen (test code = 07891-5) POSITIVE NEGATI VE This test provides only a screen. Positive results should be repeated by a confi rmatory test.[facility]villeUrine methadone screen 2019-12-14 09:35:00* Test Item Value Reference Range Interpretation Comments Urine Methadone Screen (test code = 02553-0) NEGATIVE NEGATIVE THESE RESULTS ARE FOR MEDICAL TREATMENT ONLYTHIS REPORT CONTAINS UNCONFIR MED SCREENING RESULTS*POSITIVE RESULTS WILL BE CONFIRMED BY REFERENCE LAB UPON R EQUEST CUT-OFFDRUG CLASS CONCENTRATION ng/mLAmphetamines 1000Methamphetamines 1000Cocaine Metabolite 300Opiate 300Phencyc lidine 25Cannabinoid 50Barbiturates 300Benzodiazepine 300Methadone 300[facility] CenterUrine urobilinogen measurement by test strip (mass/volume)2019-12-14 09:35:00* Test Item Value Reference Range Interpretation Comments Urine Urobilinogen (test code = 77017-1) 0.2 0.2-1 [facility]villeUrine total bilirubin measurement (mass/volume)2019-12-14 09:35:00* Test Item Value Reference Range Interpretation Comments Urine Bilirubin (test code = 1978-6) SMALL NEGATIVE [facility]villeUrine erythrocytes plbedjcpr3946-34-31 09:35:00* Test Item Value Reference Range Interpretation Comments Urine Blood (test code = 19967-4) MODERATE NEGATIVE [facility] BrownsvilleAutomated urine sediment leukocyte count by microscopy (number/high power field)2019-12-14 09:35:00* Test Item Value Reference Range Interpretation Comments Urine WBC (test code = 5821-4) 11-20 0-5 [facility]villeErythrocytes detection in urine sediment by light vphyixvszr2545-89-41 09:35:00* Test Item Value Reference Range Interpretation Comments Urine RBC (test code = 45042-8) 6-10 0-5 [facility]villeBacteria detection in urine sediment by light oonitvxmns5007-54-16 09:35:00* Test Item Value Reference Range Interpretation Comments Urine Bacteria (test code = 49909-0) RARE NONE [facility]villeEpithelial cells detection in urine sediment by light shxgjfvxuh3811-93-09 09:35:00* Test Item Value Reference Range Interpretation Comments Urine Epithelial Cells (test code = 28588-8) FEW NONE [facility]villeUrine color ajgxrkkktitia7094-31-78 09:35:00* Test Item Value Reference Range Interpretation Comments Urine Color (test code = 5778-6) ORANGE YELLOW [facility]villeUrine gxcyflc5079-41-91 09:35:00* Test Item Value Reference Range Interpretation Comments Urine Clarity (test code = 36739-0) SL CLOUDY CLEAR [facility] gravity of Urine by Test strip 2019-12-14 09:35:00* Test Item Value Reference Range Interpretation Comments Urine Specific [place] (test code = 5811-5) >=1.030 1.010-1.02 5 [facility]villeUrine pH measurement by automated test afzft1502-57-14 09:35:00* Test Item Value Reference Range Interpretation Comments Urine pH (test code = 52977-2) 6 5-7 [facility]villeUrine leukocyte esterase detection by filmcajx5866-27-85 09:35:00* Test Item Value Reference Range Interpretation Comments Urine Leukocyte Esterase (test code = 5799-2) NEGATIVE NEGATIVE [facility]villeUrine nitrite nhwasfarp4649-78-35 09:35:00* Test Item Value Reference Range Interpretation Comments Urine Nitrite (test code = 58679-8) NEGATIVE NEGATIVE [facility]villeUrine protein measurement by test strip (mass/volume)2019-12-14 09:35:00* Test Item Value Reference Range Interpretation Comments Urine Protein (test code = 5804-0) 2+ NEGATIVE [facility]villeUrine glucose vqvvbegzk6841-61-97 09:35:00* Test Item Value Reference Range Interpretation Comments Urine Glucose (UA) (test code = 2349-9) NEGATIVE NEGATIVE [facility]villeUrine ketones detection by automated test pewnn8853-70-34 09:35:00* Test Item Value Reference Range Interpretation Comments Urine Ketones (test code = 95678-2) 2+ NEGATIVE [facility]villeUrine urobilinogen measurement by test strip (mass/volume)2019-12-14 09:35:00* Test Item Value Reference Range Interpretation Comments Urine Urobilinogen (test code = 93106-0) 0.2 0.2-1 [facility]villeUrine total bilirubin measurement (mass/volume)2019-12-14 09:35:00* Test Item Value Reference Range Interpretation Comments Urine Bilirubin (test code = 1978-6) SMALL NEGATIVE [facility]villeUrine erythrocytes zewyrqxtb9795-27-22 09:35:00* Test Item Value Reference Range Interpretation Comments Urine Blood (test code = 29696-2) MODERATE NEGATIVE [facility] BrownsvilleAutomated urine sediment leukocyte count by microscopy (number/high power field)2019-12-14 09:35:00* Test Item Value Reference Range Interpretation Comments Urine WBC (test code = 5821-4) 11-20 0-5 [facility]villeErythrocytes detection in urine sediment by light rkxdziumbl9888-84-45 09:35:00* Test Item Value Reference Range Interpretation Comments Urine RBC (test code = 57776-1) 6-10 0-5 [facility]villeBacteria detection in urine sediment by light lisctvmdpj2867-38-03 09:35:00* Test Item Value Reference Range Interpretation Comments Urine Bacteria (test code = 21947-2) RARE NONE [facility] BrownsvilleEpithelial cells detection in urine sediment by light juzvbcyxxd1892-74-72 09:35:00* Test Item Value Reference Range Interpretation Comments Urine Epithelial Cells (test code = 16971-5) FEW NONE [facility]villeBlood leukocytes automated count (number/volume)2019-12-14 08:00:00* Test Item Value Reference Range Interpretation Comments White Blood Count (test code = 6690-2) 8.67 4.8-10.8 [facility]villeBlood erythrocytes automated count (number/volume)2019-12-14 08:00:00* Test Item Value Reference Range Interpretation Comments Red Blood Count (test code = 789-8) 4.16 4.3-5.7 [facility]villeBlood hemoglobin measurement (moles/volume)2019-12-14 08:00:00* Test Item Value Reference Range Interpretation Comments Hemoglobin (test code = 55527-7) 13.6 14.0-18.0 [facility] BrownsvilleAutomated blood hematocrit (volume fraction)2019-12-14 08:00:00* Test Item Value Reference Range Interpretation Comments Hematocrit (test code = 4544-3) 40.9 38.2-49.6 [facility] BrownsvilleAutomated erythrocyte mean corpuscular jugoyx6858-20-84 08:00:00* Test Item Value Reference Range Interpretation Comments Mean Corpuscular Volume (test code = 787-2) 98.3 81-99 [facility] BrownsvilleAutomated erythrocyte mean corpuscular hemoglobin (mass per erythrocyte)2019-12-14 08:00:00* Test Item Value Reference Range Interpretation Comments Mean Corpuscular Hemoglobin (test code = 785-6) 32.7 28-32 [facility] BrownsvilleAutomated erythrocyte mean corpuscular hemoglobin concentration measurement (mass/volume)2019-12-14 08:00:00* Test Item Value Reference Range Interpretation Comments Mean Corpuscular Hemoglobin Concent (test code = 786-4) 33.3 31-35 [facility] BrownsvilleRDW SbeXj-Frl4275-02-13 08:00:00* Test Item Value Reference Range Interpretation Comments Red Cell Distribution Width (test code = 17489-5) 12.0 11.7 -14.4 [facility] BrownsvilleAutomated blood platelet count (count/volume)2019-12-14 08:00:00* Test Item Value Reference Range Interpretation Comments Platelet Count (test code = 777-3) 206 140-360 [facility] BrownsvilleAuthugh chatham memorial hospitaled blood segmented neutrophil count as percentage of total fkwidqrquc9707-85-77 08:00:00* Test Item Value Reference Range Interpretation Comments Neutrophils (%) (Auto) (test code = 21405-5) 61.8 38.7-80.0 [facility] BrownsvilleAutomated blood lymphocyte count as percentage ot total mjhavtyadm8361-21-67 08:00:00* Test Item Value Reference Range Interpretation Comments Lymphocytes (%) (Auto) (test code = 736-9) 30.0 18.0-39.1 [facility] BrownsvilleAutomated blood monocyte count as percentage of total likapfvupl3789-57-99 08:00:00* Test Item Value Reference Range Interpretation Comments Monocytes (%) (Auto) (test code = 5905-5) 6.8 4.4-11.3 [facility] BrownsvilleAutomated blood eosinophil count as percentage of total nlbfwktilx6115-78-59 08:00:00* Test Item Value Reference Range Interpretation Comments Eosinophils (%) (Auto) (test code = 713-8) 0.5 0.0-6.0 [facility]villeAutomated blood basophil count as percentage of total kcmuyikslc8596-21-69 08:00:00* Test Item Value Reference Range Interpretation Comments Basophils (%) (Auto) (test code = 706-2) 0.6 0.0-1.0 [facility] BrownsvilleFluoroscopic procedure less than one hour lxxymbrw3759-93-40 08:00:00* Test Item Value Reference Range Interpretation Comments IM GRANULOCYTES % (test code = IM GRANULOCYTES %) 0.3 0.0- 1.0 [facility] BrownsvilleAutomated blood neutrophil count 2019-12-14 08:00:00* Test Item Value Reference Range Interpretation Comments Neutrophils # (Auto) (test code = 751-8) 5.4 2.1-6.9 [facility]villeBlood lymphocytes count (number/volume) 2019-12-14 08:00:00* Test Item Value Reference Range Interpretation Comments Lymphocytes # (Auto) (test code = 80717-1) 2.6 1.0-3.2 [facility]villeBl[facility] monocytes automated count (number/volume)2019-12-14 08:00:00* Test Item Value Reference Range Interpretation Comments Monocytes # (Auto) (test code = 742-7) 0.6 0.2-0.8 [facility]villeAutomated blood eosinophil count 2019-12-14 08:00:00* Test Item Value Reference Range Interpretation Comments Eosinophils # (Auto) (test code = 711-2) 0.0 0.0-0.4 [facility]villeAutomated blood basophil count (count/volume)2019-12-14 08:00:00* Test Item Value Reference Range Interpretation Comments Basophils # (Auto) (test code = 704-7) 0.1 0.0-0.1 [facility] BrownsvilleFluoroscopic procedure less than one hour berqvpfj4939-62-48 08:00:00* Test Item Value Reference Range Interpretation Comments Absolute Immature Granulocyte (auto (jourdan t code = Absolute Immature Granulocyte (auto) 0.03 0-0.1 [facility] sodium measurement (moles/volume)2019-12-14 08:00:00* Test Item Value Reference Range Interpretation Comments Sodium Level (test code = 2951-2) 145 136-145 [facility] plasma potassium measurement (moles/volume)2019-12-14 08:00:00* Test Item Value Reference Range Interpretation Comments Potassium Level (test code = 2823-3) 4.0 3.5-5.1 [facility] plasma chloride measurement (moles/volume)2019-12-14 08:00:00* Test Item Value Reference Range Interpretation Comments Chloride Level (test code = 2075-0) 112 98-107 [facility] plasma carbon dioxide, total measurement (moles/volume)2019-12-14 08:00:00* Test Item Value Reference Range Interpretation Comments Carbon Dioxide Level (test code = 2028-9) 17 22-29 [facility] or plasma anion ilb6795-91-65 08:00:00* Test Item Value Reference Range Interpretation Comments Anion Gap (test code = 46064-6) 20.0 8-16 [facility] urea nitrogen measurement (mass/volume)2019-12-14 08:00:00* Test Item Value Reference Range Interpretation Comments Blood Urea Nitrogen (test code = 3094-0) 15 7-26 [facility] creatinine measurement (mass/volume)2019-12-14 08:00:00* Test Item Value Reference Range Interpretation Comments Creatinine (test code = 2160-0) 1.44 0.72-1.25 [facility] urea nitrogen/creatinine mass zxfsg8131-10-37 08:00:00* Test Item Value Reference Range Interpretation Comments BUN/Creatinine Ratio (test code = 3097-3) 10 6-25 [facility] BrownsvilleEstimated glomerular filtration rate (GFR) dnbfhybuuijjh4279-08-80 08:00:00* Test Item Value Reference Range Interpretation Comments Estimat Glomerular Filtration Rate (test code = 170056533) > 60 >60 Ranges were taken from the National Kidney Disease Education Program and the [facility] literature.Reference ranges:60 or greater: Gqeuvh98-73 ( for 3 consecutive months): Chronic kidney disease 15 or less: Kidney failureVal[facility] BrownsvilleGlucose gdntunkkewn8965-23-88 08:00:00* Test Item Value Reference Range Interpretation Comments Glucose Level (test code = ONU7436) 101 74-118 [facility] calcium measurement (mass/volume)2019-12-14 08:00:00* Test Item Value Reference Range Interpretation Comments Calcium Level (test code = 62166-7) 10.7 8.4-10.2 [facility] plasma total bilirubin measurement (mass/volume)2019-12-14 08:00:00* Test Item Value Reference Range Interpretation Comments Total Bilirubin (test code = 1975-2) 0.9 0.2-1.2 [facility] BrownsvilleFluoroscopic procedure less than one hour mzwjfxzl0427-03-83 08:00:00* Test Item Value Reference Range Interpretation Comments Aspartate Amino Transf (AST/SGOT) (test code = Aspartate Amino Transf (AST/SGOT)) 17 5-34 [facility] plasma alanine aminotransferase measurement (enzymatic activity/volume)2019-12-14 08:00:00* Test Item Value Reference Range Interpretation Comments Alanine Aminotransferase (ALT/SGPT) (test code = 1742-6) 15 0-55 [facility] plasma protein measurement (mass/volume)2019-12-14 08:00:00* Test Item Value Reference Range Interpretation Comments Total Protein (test code = 2885-2) 9.1 6.5-8.1 [facility] plasma albumin measurement (mass/volume)2019-12-14 08:00:00* Test Item Value Reference Range Interpretation Comments Albumin (test code = 1751-7) 4.9 3.5-5.0 [facility]villePlasma globulin measurement (mass/volume) 2019-12-14 08:00:00* Test Item Value Reference Range Interpretation Comments Globulin (test code = 54627-4) 4.2 2.3-3.5 [facility] plasma albumin/globulin mass bvjih8482-87-70 08:00:00* Test Item Value Reference Range Interpretation Comments Albumin/Globulin Ratio (test code = 1759-0) 1.2 0.8-2.0 [facility] or plasma alkaline phosphatase measurement (enzymatic activity/volume)2019-12-14 08:00:00* Test Item Value Reference Range Interpretation Comments Alkaline Phosphatase (test code = 6768-6) 94 40-150 [facility]er[facility] or plasma creatine kinase measurement (enzymatic activity/volume)2019-12-14 08:00:00* Test Item Value Reference Range Interpretation Comments Creatine Kinase (test code = 2157-6) 57 30-200 [facility] or plasma creatine kinase MB measurement (mass/volume)2019-12-14 08:00:00* Test Item Value Reference Range Interpretation Comments Creatine Kinase MB (test code = 47757-8) 0.40 0-5.0 [facility]villeTroponin I measurement by highly sensitive enzyme cwbxbpwmsus6031-15-34 08:00:00* Test Item Value Reference Range Interpretation Comments Troponin I (test code = 31945-9) 0.004 0-0.300 [facility] plasma lipase measurement (enzymatic activity/volume)2019-12-14 08:00:00* Test Item Value Reference Range Interpretation Comments Lipase (test code = 3040-3) 19 8-78 [facility]erum or plasma creatine kinase measurement (enzymatic activity/volume)2019-12-14 08:00:00* Test Item Value Reference Range Interpretation Comments Creatine Kinase (test code = 2157-6) 57 30-200 [facility]erum or plasma creatine kinase MB measurement (mass/volume)2019-12-14 08:00:00* Test Item Value Reference Range Interpretation Comments Creatine Kinase MB (test code = 20324-6) 0.40 0-5.0 [facility]villeTroponin I measurement by highly sensitive enzyme ryrvctrxzof2830-77-75 08:00:00* Test Item Value Reference Range Interpretation Comments Troponin I (test code = 25896-0) 0.004 0-0.300 [facility] plasma creatine kinase measurement (enzymatic activity/volume)2019-12-14 08:00:00* Test Item Value Reference Range Interpretation Comments Creatine Kinase (test code = 2157-6) 57 30-200 [facility]erum or plasma creatine kinase MB measurement (mass/volume)2019-12-14 08:00:00* Test Item Value Reference Range Interpretation Comments Creatine Kinase MB (test code = 51066-4) 0.40 0-5.0 [facility]villeTroponin I measurement by highly sensitive enzyme iuqqhnelpay3113-63-80 08:00:00* Test Item Value Reference Range Interpretation Comments Troponin I (test code = 74238-9) 0.004 0-0.300 [facility] plasma creatine kinase measurement (enzymatic activity/volume)2019-12-14 08:00:00* Test Item Value Reference Range Interpretation Comments Creatine Kinase (test code = 2157-6) 57 30-200 [facility] or plasma creatine kinase MB measurement (mass/volume)2019-12-14 08:00:00* Test Item Value Reference Range Interpretation Comments Creatine Kinase MB (test code = 07236-5) 0.40 0-5.0 [facility]villeTroponin I measurement by highly sensitive enzyme xxxqgjpxcsv7772-70-64 08:00:00* Test Item Value Reference Range Interpretation Comments Troponin I (test code = 08559-8) 0.004 0-0.300 [facility] BrownsvilleUrine Opiates Xfgvqt9440-22-87 13:43:00* Test Item Value Reference Range Interpretation Comments Urine Opiates Screen (test code = 79239-6) NEGATIVE NEGATIVE ALL TESTS PERFORMED MANUALLY ON Gigg[employer] TOX/SEE TEST --- 04/04/19 1340 ---OPIATE S previously reported as: N ALL TESTS PERFORMED MANUALLY ON BIORAD TOX/SEE TEST [facility]villeUrine Barbiturates Refwha4340-43-84 13:43:00* Test Item Value Reference Range Interpretation Comments Urine Barbiturates Screen (test code = 494086117) NEGATIVE NEGA TIVE --- 04/04/19 1341 ---BARBITURATES [facility]: [facility] Phencyclidine Gcpvfw8558-12-74 13:43:00* Test Item Value Reference Range Interpretation Comments Urine Phencyclidine Screen (test code = 98433-0) NEGATIVE NEGAT ANGY --- 04/04/19 1341 ---PCP previously reported [facility]: [facility] Amphetamines Ejitvy4644-24-95 13:43:00* Test Item Value Reference Range Interpretation Comments Urine Amphetamines Screen (test code = 57577-0) NEGATIVE NEGATI VE --- 04/04/19 134 ---AMPHETAMINES previously reported [facility]: [facility] Methamphetamines Poewbd4724-35-63 13:43:00* Test Item Value Reference Range Interpretation Comments Urine Methamphetamines Screen (test code = Urine Metha mphetamines Screen) NEGATIVE NEGATIVE --- 04/04/191341 ---MAMP previously [facility]: [facility] Benzodiazepines Bfuqqs6349-06-86 13:43:00* Test Item Value Reference Range Interpretation Comments Urine Benzodiazepines Screen (test code = 67893-0) NEGATIVE NEG ATIVE --- 04/04/19 134 ---BENZODIAZEPINES previously reported [facility]: [facility] Cocaine Cjptod8672-13-78 13:43:00* Test Item Value Reference Range Interpretation Comments Urine Cocaine Screen (test code = 3398-5) NEGATIVE NEGATIVE --- 04/04/191341 ---COCAINE previously [facility]: [facility] Cannabinoids Rafulf9636-91-53 13:43:00* Test Item Value Reference Range Interpretation Comments Urine Cannabinoids Screen (test code = 47750-2) POSITIVE NEGATI VE H This test provides [...] 300Phencyclidine 25Cannabinoid 50Barbiturates 300Benzodi azepine 300Methadone 300[facility] CenterUrine Methadone Erqazx8975-51-45 13:43:00* Test Item Value Reference Range Interpretation Comments Urine Methadone Screen (test code = 36666-1) POSITIVE NEGATIVE H This test provides only [...] 300Phencyclidine 25Cannabinoid 50Barbiturates 300 Benzodiazepine 300Methadone 300[facility] CenterCT ABDOMEN/PELVIS C2751-80-02 12:24:00 [facility] [address] [place] [address] Patient Name: QUYEN KIM MR #: [id number] : 1980 Age/Sex: 38/M Req #: [id number] [facility] Physician: Ordered by: BRANDO MONTGOMERY MD Report #: [id number] Location: ER Room/Bed: Procedure: [id number] CT/CT ABDOMEN/PELVIS W Exam Date: 04/04/19 Exam [...] Color (test code = 5778-6) YELLOW YELLOW [facility]villeUrine Ixgaspi0208-54-04 11:38:00* Test Item Value Reference Range Interpretation Comments Urine Clarity (test code = 86166-8) CLEAR CLEAR [facility] Specific Gdfubrn1397-41-12 11:38:00 * Test Item Value Reference Range Interpretation Comments Urine Specific [place] (test code = 5811-5) 1.010 1.010-1.02 5 [facility] gT1253-21-63 11:38:00* Test Item Value Reference Range Interpretation Comments Urine pH (test code = 49611-1) 6.5 5-7 [facility] Leukocyte Dvdbjyag1444-18-64 11:38:00* Test Item Value Reference Range Interpretation Comments Urine Leukocyte Esterase (test code = 5799-2) NEGATIVE NEGATIVE [facility] Zmcqdll4142-30-49 11:38:00* Test Item Value Reference Range Interpretation Comments Urine Nitrite (test code = 01165-0) NEGATIVE NEGATIVE [facility] Dvydbyj2225-46-87 11:38:00* Test Item Value Reference Range Interpretation Comments Urine Protein (test code = 5804-0) TRACE NEGATIVE H [facility] Glucose (UA)2019-04-04 11:38:00* Test Item Value Reference Range Interpretation Comments Urine Glucose (UA) (test code = 2349-9) NEGATIVE NEGATIVE [facility] Zwhtell2416-91-42 11:38:00* Test Item Value Reference Range Interpretation Comments Urine Ketones (test code = 40981-8) NEGATIVE NEGATIVE [facility] Oucdaxonxfhf1000-83-14 11:38:00* Test Item Value Reference Range Interpretation Comments Urine Urobilinogen (test code = 71267-7) 0.2 0.2-1 [facility] Ktlpvlagk3496-00-23 11:38:00* Test Item Value Reference Range Interpretation Comments Urine Bilirubin (test code = 1978-6) NEGATIVE NEGATIVE [facility] Tkubu8928-65-08 11:38:00* Test Item Value Reference Range Interpretation Comments Urine Blood (test code = 14524-5) NEGATIVE NEGATIVE [facility]villeUrine LWX2879-65-49 11:38:00* Test Item Value Reference Range Interpretation Comments Urine WBC (test code = 5821-4) 0-5 0-5 [facility]villeUrine IJB2397-25-33 11:38:00* Test Item Value Reference Range Interpretation Comments Urine RBC (test code = 21556-2) 0-5 0-5 [facility]villeUrine Izgbfppc4208-97-88 11:38:00* Test Item Value Reference Range Interpretation Comments Urine Bacteria (test code = 54349-1) RARE NONE [facility]villeUrine Epithelial Pzhxb5692-52-77 11:38:00 * Test Item Value Reference Range Interpretation Comments Urine Epithelial Cells (test code = 91510-4) FEW NONE [facility]oodium Xnexo4656-56-13 11:26:00* Test Item Value Reference Range Interpretation Comments Sodium Level (test code = 2951-2) 137 136-145 [facility]villePotassium Lbzxq0063-85-33 11:26:00* Test Item Value Reference Range Interpretation Comments Potassium Level (test code = 2823-3) 3.7 3.5-5.1 [facility]villeChloride Dmpow6168-75-47 11:26:00* Test Item Value Reference Range Interpretation Comments Chloride Level (test code = 2075-0) 105 98-107 [facility] BrownsvilleCarbon Dioxide Gaenv0858-17-66 11:26:00* Test Item Value Reference Range Interpretation Comments Carbon Dioxide Level (test code = 2028-9) 20 22-29 L [facility] BrownsvilleAnion Loz1732-01-68 11:26:00* Test Item Value Reference Range Interpretation Comments Anion Gap (test code = 29170-8) 15.7 8-16 [facility] BrownsvilleBlood Urea Fkhunjkb6718-69-84 11:26:00* Test Item Value Reference Range Interpretation Comments Blood Urea Nitrogen (test code = 3094-0) 10 7-26 [facility] BrownsvilleCreatinine2019-12-03 11:26:00* Test Item Value Reference Range Interpretation Comments Creatinine (test code = 2160-0) 1.35 0.72-1.25 H [facility]villeBUN/Creatinine Pwjea4198-33-20 11:26:00* Test Item Value Reference Range Interpretation Comments BUN/Creatinine Ratio (test code = 3097-3) 7 6-25 [facility] BrownsvilleEstimat Glomerular Filtration Rate 2019-04-04 11:26:00* Test Item Value Reference Range Interpretation Comments Estimat Glomerular Filtration Rate (test code = 299685359) > 60 >60 Ranges were taken from the National Kidney Disease Education Program and the [facility] Kid[facility] Foundation literature.Reference ranges:60 or greater: Xnlyyg18-54 ( for 3 consecutive months): Chronic kidney disease 15 or less: Kidney failureVal[facility] – BrownsvilleGlucose Onznc5181-53-88 11:26:00* Test Item Value Reference Range Interpretation Comments Glucose Level (test code = ZTD2976) 106 74-118 [facility] BrownsvilleCalcium Obxow8900-35-43 11:26:00* Test Item Value Reference Range Interpretation Comments Calcium Level (test code = 57188-8) 9.8 8.4-10.2 [facility] BrownsvilleMagnesium Xcyua9092-20-62 11:26:00* Test Item Value Reference Range Interpretation Comments Magnesium Level (test code = 31865-1) 1.8 1.3-2.1 [facility] BrownsvilleTotal Dbzybejdq8260-25-87 11:26:00* Test Item Value Reference Range Interpretation Comments Total Bilirubin (test code = 1975-2) 0.7 0.2-1.2 [facility] BrownsvilleAspartate Amino Transf (AST/SGOT) 2019-04-04 11:26:00* Test Item Value Reference Range Interpretation Comments Aspartate Amino Transf (AST/SGOT) (test code = Aspartate Amino Transf (AST/SGOT)) 15 5-34 [facility] BrownsvilleAlanine Aminotransferase (ALT/SGPT) 2019-04-04 11:26:00* Test Item Value Reference Range Interpretation Comments Alanine Aminotransferase (ALT/SGPT) (test code = 1742-6) 19 0-55 [facility] BrownsvilleTotal Qcynrjk7546-47-55 11:26:00* Test Item Value Reference Range Interpretation Comments Total Protein (test code = 2885-2) 8.2 6.5-8.1 H [facility] BrownsvilleAlbumin2019-12-03 11:26:00* Test Item Value Reference Range Interpretation Comments Albumin (test code = 1751-7) 4.2 3.5-5.0 [facility] BrownsvilleGlobulin2019-12-03 11:26:00* Test Item Value Reference Range Interpretation Comments Globulin (test code = 44417-3) 4.0 2.3-3.5 H [facility] BrownsvilleAlbumin/Globulin Cutxy2076-58-23 11:26:00 * Test Item Value Reference Range Interpretation Comments Albumin/Globulin Ratio (test code = 1759-0) 1.1 0.8-2.0 [facility] BrownsvilleAlkaline Loeulkqehhd5945-23-18 11:26:00* Test Item Value Reference Range Interpretation Comments Alkaline Phosphatase (test code = 6768-6) 76 40-150 [facility] BrownsvilleCreatine Qeoysm2298-76-76 11:26:00* Test Item Value Reference Range Interpretation Comments Creatine Kinase (test code = 2157-6) 77 30-200 [facility] BrownsvilleCreatine Kinase IL9694-87-44 11:26:00* Test Item Value Reference Range Interpretation Comments Creatine Kinase MB (test code = 48526-9) 0.60 0-5.0 [facility] BrownsvilleTroponin K8687-50-46 11:26:00* Test Item Value Reference Range Interpretation Comments Troponin I (test code = LWW1111) 0.068 0-0.300 [facility] BrownsvilleAmylase Qjacr9781-35-59 11:26:00* Test Item Value Reference Range Interpretation Comments Amylase Level (test code = 1798-8) 90 25-125 [facility] BrownsvilleLipase2019-12-03 11:26:00* Test Item Value Reference Range Interpretation Comments Lipase (test code = 3040-3) 16 8-78 [facility] BrownsvilleLactic Acid Bajxd2621-48-21 11:25:00* Test Item Value Reference Range Interpretation Comments Lactic Acid Level (test code = Lactic Acid Level) 1.2 0.5- 2.0 [facility] BrownsvilleProthrombin Muvz5497-40-40 10:58:00* Test Item Value Reference Range Interpretation Comments Prothrombin Time (test code = 5902-2) 13.2 11.9-14.5 [facility] BrownsvilleProthromb Time International Ratio 2019-04-04 10:58:00* Test Item Value Reference Range Interpretation Comments Prothromb Time International Ratio (test code = 6301-6) 0.95 Oral Anticoagulant Therapy INR Values:1. Low Intensity Therapy 1.5 - 2.02 . Moderate Intensity Therapy 2.0 - 3.03. High Intensity Therapy(1) 2.5 - 3. 54. High Intensity Therapy(2) 3.0 - 4.05. Panic Value INR > 5.0 [facility] BrownsvilleActivated Partial Thromboplast Time 2019-04-04 10:58:00* Test Item Value Reference Range Interpretation Comments Activated Partial Thromboplast Time (test code = 45472-6) 29.7 23.8-35.5 [facility] BrownsvilleCHEST SINGLE (PORTABLE)2019-04-04 10:27:00 [facility] [address] [place] [address] Patient Name: QUYEN KIM MR #: [id number] : 1980 Age/Sex: 38/M Req #: [id number] Adm Physician: Ordered by: BRANDO MONTGOMERY MD Report #: [id number] Location: Room/Bed: Procedure: [id number] DX/CH EST SINGLE (PORTABLE) Exam Date: 04/04/19 [...] COPY TO: BRANDO MONTGOMERY MD White Blood Hzcnc6883-72-44 10:10:00* Test Item Value Reference Range Interpretation Comments White Blood Count (test code = 6690-2) 8.03 4.8-10.8 [facility] BrownsvilleRed Blood Mijyh6244-35-11 10:10:00* Test Item Value Reference Range Interpretation Comments Red Blood Count (test code = 789-8) 3.79 4.3-5.7 L [facility] BrownsvilleHemoglobin2019-12-03 10:10:00* Test Item Value Reference Range Interpretation Comments Hemoglobin (test code = 78179-0) 12.3 14.0-18.0 L [facility] BrownsvilleHematocrit2019-12-03 10:10:00* Test Item Value Reference Range Interpretation Comments Hematocrit (test code = 4544-3) 36.2 38.2-49.6 L [facility] BrownsvilleMean Corpuscular Dsfppq1616-01-62 10:10:00* Test Item Value Reference Range Interpretation Comments Mean Corpuscular Volume (test code = 787-2) 95.5 81-99 [facility] BrownsvilleMean Corpuscular Ckzosnvrnc5195-99-68 10:10:00* Test Item Value Reference Range Interpretation Comments Mean Corpuscular Hemoglobin (test code = 785-6) 32.5 28-32 H [facility] BrownsvilleMean Corpuscular Hemoglobin Concent 2019-04-04 10:10:00* Test Item Value Reference Range Interpretation Comments Mean Corpuscular Hemoglobin Concent (test code = 786-4) 34.0 31-35 [facility] BrownsvilleRed Cell Distribution Rbwxv2911-67-25 10:10:00* Test Item Value Reference Range Interpretation Comments Red Cell Distribution Width (test code = 65133-0) 12.6 11.7 -14.4 [facility] BrownsvillePlatelet Impgv8445-46-40 10:10:00* Test Item Value Reference Range Interpretation Comments Platelet Count (test code = 777-3) 260 140-360 [facility] BrownsvilleNeutrophils (%) (Auto)2019-04-04 10:10:00 * Test Item Value Reference Range Interpretation Comments Neutrophils (%) (Auto) (test code = 43862-7) 57.8 38.7-80.0 [facility] BrownsvilleLymphocytes (%) (Auto)2019-04-04 10:10:00 * Test Item Value Reference Range Interpretation Comments Lymphocytes (%) (Auto) (test code = 736-9) 33.6 18.0-39.1 [facility]villeMonocytes (%) (Auto)2019-04-04 10:10:00* Test Item Value Reference Range Interpretation Comments Monocytes (%) (Auto) (test code = 5905-5) 7.1 4.4-11.3 [facility]villeEosinophils (%) (Auto)2019-04-04 10:10:00 * Test Item Value Reference Range Interpretation Comments Eosinophils (%) (Auto) (test code = 713-8) 0.6 0.0-6.0 [facility]villeBasophils (%) (Auto)2019-04-04 10:10:00* Test Item Value Reference Range Interpretation Comments Basophils (%) (Auto) (test code = 706-2) 0.5 0.0-1.0 [facility] BrownsvilleIM GRANULOCYTES %2019-04-04 10:10:00* Test Item Value Reference Range Interpretation Comments IM GRANULOCYTES % (test code = IM GRANULOCYTES %) 0.4 0.0- 1.0 [facility]villeNeutrophils # (Auto)2019-04-04 10:10:00* Test Item Value Reference Range Interpretation Comments Neutrophils # (Auto) (test code = 751-8) 4.6 2.1-6.9 [facility]villeLymphocytes # (Auto)2019-04-04 10:10:00* Test Item Value Reference Range Interpretation Comments Lymphocytes # (Auto) (test code = 21035-2) 2.7 1.0-3.2 [facility]villeMonocytes # (Auto)2019-04-04 10:10:00* Test Item Value Reference Range Interpretation Comments Monocytes # (Auto) (test code = 742-7) 0.6 0.2-0.8 [facility]villeEosinophils # (Auto)2019-04-04 10:10:00* Test Item Value Reference Range Interpretation Comments Eosinophils # (Auto) (test code = 711-2) 0.1 0.0-0.4 [facility]villeBasophils # (Auto)2019-04-04 10:10:00* Test Item Value Reference Range Interpretation Comments Basophils # (Auto) (test code = 704-7) 0.0 0.0-0.1 [facility] BrownsvilleAbsolute Immature Granulocyte (auto 2019-04-04 10:10:00* Test Item Value Reference Range Interpretation Comments Absolute Immature Granulocyte (auto (jourdan t code = Absolute Immature Granulocyte (auto) 0.03 0-0.1 [facility] BrownsvilleFluoroscopic procedure less than one hour zctvylwv2078-26-50 09:40:00* Test Item Value Reference Range Interpretation Comments Lactic Acid Level (test code = Lactic Acid Level) 1.2 0.5- 2.0 [facility] magnesium measurement (mass/volume)2019-04-04 09:40:00* Test Item Value Reference Range Interpretation Comments Magnesium Level (test code = 38673-1) 1.8 1.3-2.1 [facility] or plasma amylase measurement (enzymatic activity/volume)2019-04-04 09:40:00* Test Item Value Reference Range Interpretation Comments Amylase Level (test code = 1798-8) 90 - [facility] BrownsvilleFluoroscopic procedure less than one hour ikrnakfj1880-14-07 09:40:00* Test Item Value Reference Range Interpretation Comments Lactic Acid Level (test code = Lactic Acid Level) 1.2 0.5- 2.0 [facility] plasma magnesium measurement (mass/volume)2019-04-04 09:40:00* Test Item Value Reference Range Interpretation Comments Magnesium Level (test code = 23544-2) 1.8 1.3-2.1 [facility] or plasma amylase measurement (enzymatic activity/volume)2019-04-04 09:40:00* Test Item Value Reference Range Interpretation Comments Amylase Level (test code = 1798-8) - [facility] BrownsvilleFluoroscopic procedure less than one hour hjhfygvi4597-94-04 09:40:00* Test Item Value Reference Range Interpretation Comments Lactic Acid Level (test code = Lactic Acid Level) 1.2 0.5- 2.0 [facility]erum or plasma magnesium measurement (mass/volume)2019-04-04 09:40:00* Test Item Value Reference Range Interpretation Comments Magnesium Level (test code = 20897-5) 1.8 1.3-2.1 [facility] plasma amylase measurement (enzymatic activity/volume)2019-04-04 09:40:00* Test Item Value Reference Range Interpretation Comments Amylase Level (test code = 1798-8) - [facility]villeFluoroscopic procedure less than one hour guxovddx9436-77-97 09:40:00* Test Item Value Reference Range Interpretation Comments Lactic Acid Level (test code = Lactic Acid Level) 1.2 0.5- 2.0 [facility] plasma magnesium measurement (mass/volume)2019-04-04 09:40:00* Test Item Value Reference Range Interpretation Comments Magnesium Level (test code = 08517-0) 1.8 1.3-2.1 [facility] plasma amylase measurement (enzymatic activity/volume)2019-04-04 09:40:00* Test Item Value Reference Range Interpretation Comments Amylase Level (test code = 1798-8) 90 25-125 [facility]villeProthrombin time (PT) in platelet poor plasma by coagulation jikpy5209-08-72 08:53:00* Test Item Value Reference Range Interpretation Comments Prothrombin Time (test code = 5902-2) 13.2 11.9-14.5 [facility]villeINR in Platelet poor plasma by Coagulation ojkgq9971-26-13 08:53:00* Test Item Value Reference Range Interpretation Comments Prothromb Time International Ratio (test code = 6301-6) 0.95 Oral Anticoagulant Therapy INR Values:1. Low Intensity Therapy 1.5 - 2.02 . Moderate Intensity Therapy 2.0 - 3.03. High Intensity Therapy(1) 2.5 - 3. 54. High Intensity Therapy(2) 3.0 - 4.05. Panic Value INR > 5.0 [facility]villeActivated partial thromboplastin time (aPTT) in platelet poor plasma by coagulation oegtz6319-83-25 08:53:00* Test Item Value Reference Range Interpretation Comments Activated Partial Thromboplast Time (test code = 71706-1) 29.7 23.8-35.5 [facility]villeBlood fxgrzyf3618-21-58 08:53:00* Test Item Value Reference Range Interpretation Comments Blood Culture (test code = 17327736) NO GROWTH AFTER 5 DAYS, FINAL REPORT [facility]villeProthrombin time (PT) in platelet poor plasma by coagulation nwdwf6958-47-13 08:53:00* Test Item Value Reference Range Interpretation Comments Prothrombin Time (test code = 5902-2) 13.2 11.9-14.5 [facility]villeINR in Platelet poor plasma by Coagulation cfhpz8049-12-85 08:53:00* Test Item Value Reference Range Interpretation Comments Prothromb Time International Ratio (test code = 6301-6) 0.95 Oral Anticoagulant Therapy INR Values:1. Low Intensity Therapy 1.5 - 2.02 . Moderate Intensity Therapy 2.0 - 3.03. High Intensity Therapy(1) 2.5 - 3. 54. High Intensity Therapy(2) 3.0 - 4.05. Panic Value INR > 5.0 [facility]villeActivated partial thromboplastin time (aPTT) in platelet poor plasma by coagulation aoueg4715-86-86 08:53:00* Test Item Value Reference Range Interpretation Comments Activated Partial Thromboplast Time (test code = 07084-0) 29.7 23.8-35.5 [facility] swblcrp7057-19-66 08:53:00* Test Item Value Reference Range Interpretation Comments Blood Culture (test code = 47011879) NO GROWTH AFTER 5 DAYS, FINAL REPORT [facility]villeProthrombin time (PT) in platelet poor plasma by coagulation ixonz9784-21-16 08:53:00* Test Item Value Reference Range Interpretation Comments Prothrombin Time (test code = 5902-2) 13.2 11.9-14.5 [facility]villeINR in Platelet poor plasma by Coagulation qcvrs4900-66-67 08:53:00* Test Item Value Reference Range Interpretation Comments Prothromb Time International Ratio (test code = 6301-6) 0.95 Oral Anticoagulant Therapy INR Values:1. Low Intensity Therapy 1.5 - 2.02 . Moderate Intensity Therapy 2.0 - 3.03. High Intensity Therapy(1) 2.5 - 3. 54. High Intensity Therapy(2) 3.0 - 4.05. Panic Value INR > 5.0 [facility]villeActivated partial thromboplastin time (aPTT) in platelet poor plasma by coagulation vihau3413-89-01 08:53:00* Test Item Value Reference Range Interpretation Comments Activated Partial Thromboplast Time (test code = 69227-1) 29.7 23.8-35.5 [facility] sonjsmw8470-74-89 08:53:00* Test Item Value Reference Range Interpretation Comments Blood Culture (test code = 55172943) NO GROWTH AFTER 5 DAYS, FINAL REPORT [facility]villeProthrombin time (PT) in platelet poor plasma by coagulation kkmri3564-08-55 08:53:00* Test Item Value Reference Range Interpretation Comments Prothrombin Time (test code = 5902-2) 13.2 11.9-14.5 [facility]villeINR in Platelet poor plasma by Coagulation tkkex9543-84-23 08:53:00* Test Item Value Reference Range Interpretation Comments Prothromb Time International Ratio (test code = 6301-6) 0.95 Oral Anticoagulant Therapy INR Values:1. Low Intensity Therapy 1.5 - 2.02 . Moderate Intensity Therapy 2.0 - 3.03. High Intensity Therapy(1) 2.5 - 3. 54. High Intensity Therapy(2) 3.0 - 4.05. Panic Value INR > 5.0 [facility]villeActivated partial thromboplastin time (aPTT) in platelet poor plasma by coagulation zbdrz6201-43-03 08:53:00* Test Item Value Reference Range Interpretation Comments Activated Partial Thromboplast Time (test code = 05032-8) 29.7 23.8-35.5 [facility]villeBlood oztexqx0935-28-74 08:53:00* Test Item Value Reference Range Interpretation Comments Blood Culture (test code = 87315760) NO GROWTH AFTER 5 DAYS, FINAL REPORT [facility] BrownsvilleTissue Transglutaminase IgA Ci0643-40-85 06:10:00* Test Item Value Reference Range Interpretation Comments Tissue Transglutaminase IgA Ab (test code = 15695-1) <2 0 -3 Negative 0 - 3 Weak Positive 4 - 10 Positive >10 Tissue Transglutaminase (tTG) has been identified as the endomysial antigen. Studies have demonstr- ated that endomysial IgA antibodies have over 99% specif icity for gluten sensitive enteropathy.[facility] Immunoglobulin D9564-91-41 06:10:00* Test Item Value Reference Range Interpretation Comments Immunoglobulin A (test code = 2458-8) 150 02-062 Performed at: [facility] [id number] [employer]ipe Grader: Lai Olson MD, Phone: [phone] at: - [facility] [id number] Director: Alejo Malin MD, Ph one: [phone] BrownsvilleEndomysial IgA Antibody 2019-03-21 06:10:00* Test Item Value Reference Range Interpretation Comments Endomysial IgA Antibody (test code = 29408-5) Negative Negative [facility] BrownsvilleTissue Transglutaminase IgA Hc6364-37-89 06:10:00* Test Item Value Reference Range Interpretation Comments Tissue Transglutaminase IgA Ab (test code = 10241-8) <2 0 -3 Negative 0 - 3 Weak Positive 4 - 10 Positive >10 Tissue Transglutaminase (tTG) has been identified as the endomysial antigen. Studies have demonstr- ated that endomysial IgA antibodies have over 99% specif icity for gluten sensitive enteropathy.[facility] Immunoglobulin P9847-18-77 06:10:00* Test Item Value Reference Range Interpretation Comments Immunoglobulin A (test code = 2458-8) 150 90-386 Performed at: [facility] [id number] [employer]ader: Lai Olson MD, Phone: [phone] at: [facility] [id number] Director: Alejo Malin MD, Ph one: [phone] – BrownsvilleEndomysial IgA Antibody 2019-03-21 06:10:00* Test Item Value Reference Range Interpretation Comments Endomysial IgA Antibody (test code = 20382-8) Negative Negative [facility]villeBlood Xohdxbk1210-89-02 14:11:00* Test Item Value Reference Range Interpretation Comments Blood Culture (test code = 51954263) NO GROWTH AFTER 5 DAYS, FINAL REPORT [facility]villeBlood Osncvqn4220-56-43 14:11:00* Test Item Value Reference Range Interpretation Comments Blood Culture (test code = 79598155) NO GROWTH AFTER 5 DAYS, FINAL REPORT [facility] BrownsvilleRBC Folate Fylynhvlwc1961-71-61 20:40:00 * Test Item Value Reference Range Interpretation Comments RBC Folate Hemolysate (test code = 2282-2) 268.2 Not Estab. [facility]villeHematocrit2019-11-15 20:40:00* Test Item Value Reference Range Interpretation Comments Hematocrit (test code = 4544-3) 29.1 37.5-51.0 L [facility] Folate Hpgbzeufqs0615-49-47 20:40:00 * Test Item Value Reference Range Interpretation Comments RBC Folate Hemolysate (test code = 2283-0) 922 >498 Performed at: - [facility] [id number] Director: Alejo Malin MD, Phone: [phone] – BrownsvilleC-Reactive Ugjpxbc3324-79-11 20:40:00* Test Item Value Reference Range Interpretation Comments C-Reactive Protein (test code = 1987-5) 3 0-10 Performed at: - [facility] [id number] Director: Alejo Malin MD, Phone: [phone] [facility] [place] Folate Akgznzxjfe3959-91-01 20:40:00* Test Item Value Reference Range Interpretation Comments RBC Folate Hemolysate (test code = 2282-2) 268.2 Not Estab. [facility]villeHematocrit2019-11-15 20:40:00* Test Item Value Reference Range Interpretation Comments Hematocrit (test code = 4544-3) 29.1 37.5-51.0 L [facility] Folate Ajacymniny0034-12-90 20:40:00 * Test Item Value Reference Range Interpretation Comments RBC Folate Hemolysate (test code = 2283-0) 922 >498 Performed at: - [address] [id number] Director: Alejo Malin MD, Phone: [phone] Center – BrownsvilleC-Reactive Auxpppe7330-60-89 20:40:00* Test Item Value Reference Range Interpretation Comments C-Reactive Protein (test code = 1987-5) 3 0-10 Performed at: [facility] [address] [place], [place] [id number] Director: Alejo Malin MD, Phone: [phone] BrownsvilleBlood Ufampjt3997-55-31 14:11:00* Test Item Value Reference Range Interpretation Comments Blood Culture (test code = 67811948) NO GROWTH AFTER 72 HOURS [facility]villeDifferential Total Cells Counted 2019-03-16 10:54:00* Test Item Value Reference Range Interpretation Comments Differential Total Cells Counted (test code = Differen tial Total Cells Counted) 100 [facility]villeNeutrophils % (Manual)2019-03-16 10:54:00 * Test Item Value Reference Range Interpretation Comments Neutrophils % (Manual) (test code = 18523-7) 42 40-74 [facility]villeLymphocytes % (Manual)2019-03-16 10:54:00 * Test Item Value Reference Range Interpretation Comments Lymphocytes % (Manual) (test code = 737-7) 49 19-48 H [facility]villeMonocytes % (Manual)2019-03-16 10:54:00* Test Item Value Reference Range Interpretation Comments Monocytes % (Manual) (test code = 744-3) 5 3.4-9.0 [facility] BrownsvilleReactive Whbzqmbgrjr6202-04-09 10:54:00* Test Item Value Reference Range Interpretation Comments Reactive Lymphocytes (test code = 56595-1) 4 [facility]villePlatelet Bqqiiota6492-58-10 10:54:00* Test Item Value Reference Range Interpretation Comments Platelet Estimate (test code = 53937-4) ADEQUATE [facility] BrownsvillePlatelet Morphology Xdgccnp9638-32-27 10:54:00* Test Item Value Reference Range Interpretation Comments Platelet Morphology Comment (test code = 22833-1) NORMAL [facility]villeRed Cell Morphology Aimcqmc1705-60-60 10:54:00* Test Item Value Reference Range Interpretation Comments Red Cell Morphology Comment (test code = 6742-1) NORMAL [facility] BrownsvilleDifferential Total Cells Counted 2019-03-16 10:54:00* Test Item Value Reference Range Interpretation Comments Differential Total Cells Counted (test code = Differen tial Total Cells Counted) 100 [facility] BrownsvilleNeutrophils % (Manual)2019-03-16 10:54:00 * Test Item Value Reference Range Interpretation Comments Neutrophils % (Manual) (test code = 12088-4) 42 40-74 [facility]villeLymphocytes % (Manual)2019-03-16 10:54:00 * Test Item Value Reference Range Interpretation Comments Lymphocytes % (Manual) (test code = 737-7) 49 19-48 H [facility]villeMonocytes % (Manual)2019-03-16 10:54:00* Test Item Value Reference Range Interpretation Comments Monocytes % (Manual) (test code = 744-3) 5 3.4-9.0 [facility] BrownsvilleReactive Rsmdhhbjvkr1208-98-73 10:54:00* Test Item Value Reference Range Interpretation Comments Reactive Lymphocytes (test code = 27325-9) 4 [facility]villePlatelet Gjhcvrgy0747-57-25 10:54:00* Test Item Value Reference Range Interpretation Comments Platelet Estimate (test code = 09709-9) ADEQUATE [facility] BrownsvillePlatelet Morphology Sejjhxy6976-14-47 10:54:00* Test Item Value Reference Range Interpretation Comments Platelet Morphology Comment (test code = 38587-8) NORMAL [facility] BrownsvilleRed Cell Morphology Dsrpjtr4995-19-05 10:54:00* Test Item Value Reference Range Interpretation Comments Red Cell Morphology Comment (test code = 6742-1) NORMAL [facility] BrownsvilleDifferential Total Cells Counted 2019-03-16 10:54:00* Test Item Value Reference Range Interpretation Comments Differential Total Cells Counted (test code = Differen tial Total Cells Counted) 100 [facility] BrownsvilleNeutrophils % (Manual)2019-03-16 10:54:00 * Test Item Value Reference Range Interpretation Comments Neutrophils % (Manual) (test code = 68771-9) 42 40-74 [facility]villeLymphocytes % (Manual)2019-03-16 10:54:00 * Test Item Value Reference Range Interpretation Comments Lymphocytes % (Manual) (test code = 737-7) 49 19-48 H [facility]villeMonocytes % (Manual)2019-03-16 10:54:00* Test Item Value Reference Range Interpretation Comments Monocytes % (Manual) (test code = 744-3) 5 3.4-9.0 [facility] BrownsvilleReactive Jyicjoxajsz8131-43-82 10:54:00* Test Item Value Reference Range Interpretation Comments Reactive Lymphocytes (test code = 95473-6) 4 [facility]villePlatelet Xqjmyesl3006-22-47 10:54:00* Test Item Value Reference Range Interpretation Comments Platelet Estimate (test code = 71816-7) ADEQUATE [facility] BrownsvillePlatelet Morphology Kenlwhs3760-69-05 10:54:00* Test Item Value Reference Range Interpretation Comments Platelet Morphology Comment (test code = 91803-0) NORMAL [facility] BrownsvilleRed Cell Morphology Uguqvtp8004-59-86 10:54:00* Test Item Value Reference Range Interpretation Comments Red Cell Morphology Comment (test code = 6742-1) NORMAL [facility]oodium Jugac0533-57-36 08:19:00* Test Item Value Reference Range Interpretation Comments Sodium Level (test code = 2951-2) 138 136-145 [facility]villePotassium Cqihh1459-85-94 08:19:00* Test Item Value Reference Range Interpretation Comments Potassium Level (test code = 2823-3) 3.3 3.5-5.1 L [facility] BrownsvilleChloride Blomt8937-96-36 08:19:00* Test Item Value Reference Range Interpretation Comments Chloride Level (test code = 2075-0) 107 98-107 [facility] BrownsvilleCarbon Dioxide Zjned8683-90-92 08:19:00* Test Item Value Reference Range Interpretation Comments Carbon Dioxide Level (test code = 2028-9) 22 22-29 [facility] BrownsvilleAnion Xzt1099-71-80 08:19:00* Test Item Value Reference Range Interpretation Comments Anion Gap (test code = 13341-9) 12.3 8-16 [facility]villeBlood Urea Qbcnvpnq2324-13-39 08:19:00* Test Item Value Reference Range Interpretation Comments Blood Urea Nitrogen (test code = 3094-0) < 5 7-26 L [facility] BrownsvilleCreatinine2019-11-14 08:19:00* Test Item Value Reference Range Interpretation Comments Creatinine (test code = 2160-0) 1.20 0.72-1.25 [facility]villeBUN/Creatinine Ftvut2666-12-58 08:19:00* Test Item Value Reference Range Interpretation Comments BUN/Creatinine Ratio (test code = 3097-3) 4 6-25 L [facility] BrownsvilleEstimat Glomerular Filtration Rate 2019-03-16 08:19:00* Test Item Value Reference Range Interpretation Comments Estimat Glomerular Filtration Rate (test code = 995941119) > 60 >60 Ranges were taken from the National Kidney Disease Education Program and the [facility] [employer] literature.Reference ranges:60 or greater: Asahcz10-97 ( for 3 consecutive months): Chronic kidney disease 15 or less: Kidney failureValley Baptist Medical Center – BrownsvilleGlucose Dyzmy5294-31-40 08:19:00* Test Item Value Reference Range Interpretation Comments Glucose Level (test code = IHZ0352) 92 74-118 [facility] BrownsvilleCalcium Ouaxf5859-97-31 08:19:00* Test Item Value Reference Range Interpretation Comments Calcium Level (test code = 95036-0) 9.0 8.4-10.2 [facility] Gnlll5629-14-45 08:19:00* Test Item Value Reference Range Interpretation Comments Sodium Level (test code = 2951-2) 138 136-145 [facility]villePotassium Wwuri7349-86-67 08:19:00* Test Item Value Reference Range Interpretation Comments Potassium Level (test code = 2823-3) 3.3 3.5-5.1 L [facility] BrownsvilleChloride Pfqdz3089-17-93 08:19:00* Test Item Value Reference Range Interpretation Comments Chloride Level (test code = 2075-0) 107 98-107 [facility] BrownsvilleCarbon Dioxide Nsutt0331-06-00 08:19:00* Test Item Value Reference Range Interpretation Comments Carbon Dioxide Level (test code = 2028-9) 22 22-29 [facility] BrownsvilleAnion Gku4779-99-30 08:19:00* Test Item Value Reference Range Interpretation Comments Anion Gap (test code = 65401-8) 12.3 8-16 [facility]villeBlood Urea Nweespvp5282-76-91 08:19:00* Test Item Value Reference Range Interpretation Comments Blood Urea Nitrogen (test code = 3094-0) < 5 7-26 L [facility] BrownsvilleCreatinine2019-11-14 08:19:00* Test Item Value Reference Range Interpretation Comments Creatinine (test code = 2160-0) 1.20 0.72-1.25 [facility]villeBUN/Creatinine Wqmyr4690-01-66 08:19:00* Test Item Value Reference Range Interpretation Comments BUN/Creatinine Ratio (test code = 3097-3) 4 6-25 L [facility] BrownsvilleEstimat Glomerular Filtration Rate 2019-03-16 08:19:00* Test Item Value Reference Range Interpretation Comments Estimat Glomerular Filtration Rate (test code = 314044735) > 60 >60 Ranges were taken from the National Kidney Disease Education Program and the [facility]al Kidney Foundation literature.Reference ranges:60 or greater: Eabnri40-15 ( for 3 consecutive months): Chronic kidney disease 15 or less: Kidney failureValley [facility] Center – BrownsvilleGlucose Mzsgz7540-06-61 08:19:00* Test Item Value Reference Range Interpretation Comments Glucose Level (test code = QFP1019) 92 74-118 [facility] BrownsvilleCalcium Puxdr0768-36-43 08:19:00* Test Item Value Reference Range Interpretation Comments Calcium Level (test code = 50175-0) 9.0 8.4-10.2 [facility] BrownsvilleWhite Blood Urlst0082-70-11 05:34:00* Test Item Value Reference Range Interpretation Comments White Blood Count (test code = 6690-2) 3.70 4.8-10.8 L [facility] BrownsvilleRed Blood Ctauz3765-26-08 05:34:00* Test Item Value Reference Range Interpretation Comments Red Blood Count (test code = 789-8) 3.06 4.3-5.7 L [facility] BrownsvilleHemoglobin2019-11-14 05:34:00* Test Item Value Reference Range Interpretation Comments Hemoglobin (test code = 73553-4) 9.9 14.0-18.0 L [facility] BrownsvilleHematocrit2019-11-14 05:34:00* Test Item Value Reference Range Interpretation Comments Hematocrit (test code = 4544-3) 29.2 38.2-49.6 L [facility] BrownsvilleMean Corpuscular Hroszk1691-87-70 05:34:00* Test Item Value Reference Range Interpretation Comments Mean Corpuscular Volume (test code = 787-2) 95.4 81-99 [facility] BrownsvilleMean Corpuscular Qoavpkzbyn8066-76-27 05:34:00* Test Item Value Reference Range Interpretation Comments Mean Corpuscular Hemoglobin (test code = 785-6) 32.4 28-32 H [facility] BrownsvilleMean Corpuscular Hemoglobin Concent 2019-03-16 05:34:00* Test Item Value Reference Range Interpretation Comments Mean Corpuscular Hemoglobin Concent (test code = 786-4) 33.9 31-35 [facility]villeRed Cell Distribution Oltcg6903-91-54 05:34:00* Test Item Value Reference Range Interpretation Comments Red Cell Distribution Width (test code = 07966-1) 11.7 11.7 -14.4 [facility] BrownsvillePlatelet Peqfa6899-48-71 05:34:00* Test Item Value Reference Range Interpretation Comments Platelet Count (test code = 777-3) 174 140-360 [facility] BrownsvilleNeutrophils (%) (Auto)2019-03-16 05:34:00 * Test Item Value Reference Range Interpretation Comments Neutrophils (%) (Auto) (test code = 14783-3) 41.6 38.7-80.0 [facility]villeLymphocytes (%) (Auto)2019-03-16 05:34:00 * Test Item Value Reference Range Interpretation Comments Lymphocytes (%) (Auto) (test code = 736-9) 47.6 18.0-39.1 H [facility]villeMonocytes (%) (Auto)2019-03-16 05:34:00* Test Item Value Reference Range Interpretation Comments Monocytes (%) (Auto) (test code = 5905-5) 8.4 4.4-11.3 [facility]villeEosinophils (%) (Auto)2019-03-16 05:34:00 * Test Item Value Reference Range Interpretation Comments Eosinophils (%) (Auto) (test code = 713-8) 1.6 0.0-6.0 [facility]villeBasophils (%) (Auto)2019-03-16 05:34:00* Test Item Value Reference Range Interpretation Comments Basophils (%) (Auto) (test code = 706-2) 0.3 0.0-1.0 [facility] BrownsvilleIM GRANULOCYTES %2019-03-16 05:34:00* Test Item Value Reference Range Interpretation Comments IM GRANULOCYTES % (test code = IM GRANULOCYTES %) 0.5 0.0- 1.0 [facility]villeNeutrophils # (Auto)2019-03-16 05:34:00* Test Item Value Reference Range Interpretation Comments Neutrophils # (Auto) (test code = 751-8) 1.5 2.1-6.9 L [facility]villeLymphocytes # (Auto)2019-03-16 05:34:00* Test Item Value Reference Range Interpretation Comments Lymphocytes # (Auto) (test code = 01134-6) 1.8 1.0-3.2 [facility]villeMonocytes # (Auto)2019-03-16 05:34:00* Test Item Value Reference Range Interpretation Comments Monocytes # (Auto) (test code = 742-7) 0.3 0.2-0.8 [facility]villeEosinophils # (Auto)2019-03-16 05:34:00* Test Item Value Reference Range Interpretation Comments Eosinophils # (Auto) (test code = 711-2) 0.1 0.0-0.4 [facility]villeBasophils # (Auto)2019-03-16 05:34:00* Test Item Value Reference Range Interpretation Comments Basophils # (Auto) (test code = 704-7) 0.0 0.0-0.1 [facility] BrownsvilleAbsolute Immature Granulocyte (auto 2019-03-16 05:34:00* Test Item Value Reference Range Interpretation Comments Absolute Immature Granulocyte (auto (jourdan t code = Absolute Immature Granulocyte (auto) 0.02 0-0.1 [facility]villeWhite Blood Vtwez9937-37-59 05:34:00* Test Item Value Reference Range Interpretation Comments White Blood Count (test code = 6690-2) 3.70 4.8-10.8 L [facility] BrownsvilleRed Blood Urzfp3387-09-32 05:34:00* Test Item Value Reference Range Interpretation Comments Red Blood Count (test code = 789-8) 3.06 4.3-5.7 L [facility]emoglobin2019-[facility]14 05:34:00* Test Item Value Reference Range Interpretation Comments Hemoglobin (test code = 57231-9) 9.9 14.0-18.0 L [facility]Hematocrit2019-11-14 05:34:00* Test Item Value Reference Range Interpretation Comments Hematocrit (test code = 4544-3) 29.2 38.2-49.6 L [facility] [place]villeMean Corpuscular Shwtja4355-33-54 05:34:00* Test Item Value Reference Range Interpretation Comments Mean Corpuscular Volume (test code = 787-2) 95.4 81-99 [facility]villeMean Corpuscular Xjichnazbc1853-82-25 05:34:00* Test Item Value Reference Range Interpretation Comments Mean Corpuscular Hemoglobin (test code = 785-6) 32.4 28-32 H [facility]villeMean Corpuscular Hemoglobin Concent 2019-03-16 05:34:00* Test Item Value Reference Range Interpretation Comments Mean Corpuscular Hemoglobin Concent (test code = 786-4) 33.9 31-35 [facility] [place]villeRed Cell Distribution Oqwyr9115-97-25 05:34:00* Test Item Value Reference Range Interpretation Comments Red Cell Distribution Width (test code = 00442-3) 11.7 11.7 -14.4 [facility]villePlatelet Ugkee2865-04-08 05:34:00* Test Item Value Reference Range Interpretation Comments Platelet Count (test code = 777-3) 174 140-360 [facility]villeNeutrophils (%) (Auto)2019-03-16 05:34:00 * Test Item Value Reference Range Interpretation Comments Neutrophils (%) (Auto) (test code = 39016-0) 41.6 38.7-80.0 [facility]villeLymphocytes (%) (Auto)2019-03-16 05:34:00 * Test Item Value Reference Range Interpretation Comments Lymphocytes (%) (Auto) (test code = 736-9) 47.6 18.0-39.1 H [facility]villeMonocytes (%) (Auto)2019-03-16 05:34:00* Test Item Value Reference Range Interpretation Comments Monocytes (%) (Auto) (test code = 5905-5) 8.4 4.4-11.3 [facility]Eosinophils (%) (Auto)2019-03-16 05:34:00 * Test Item Value Reference Range Interpretation Comments Eosinophils (%) (Auto) (test code = 713-8) 1.6 0.0-6.0 [facility]Basophils (%) (Auto)2019-03-16 05:34:00* Test Item Value Reference Range Interpretation Comments Basophils (%) (Auto) (test code = 706-2) 0.3 0.0-1.0 [facility]villeIM GRANULOCYTES %2019-03-16 05:34:00* Test Item Value Reference Range Interpretation Comments IM GRANULOCYTES % (test code = IM GRANULOCYTES %) 0.5 0.0- 1.0 [facility]villeNeutrophils # (Auto)2019-03-16 05:34:00* Test Item Value Reference Range Interpretation Comments Neutrophils # (Auto) (test code = 751-8) 1.5 2.1-6.9 L [facility]villeLymphocytes # (Auto)2019-03-16 05:34:00* Test Item Value Reference Range Interpretation Comments Lymphocytes # (Auto) (test code = 69688-9) 1.8 1.0-3.2 [facility]villeMonocytes # (Auto)2019-03-16 05:34:00* Test Item Value Reference Range Interpretation Comments Monocytes # (Auto) (test code = 742-7) 0.3 0.2-0.8 [facility]Eosinophils # (Auto)2019-03-16 05:34:00* Test Item Value Reference Range Interpretation Comments Eosinophils # (Auto) (test code = 711-2) 0.1 0.0-0.4 [facility]Basophils # (Auto)2019-03-16 05:34:00* Test Item Value Reference Range Interpretation Comments Basophils # (Auto) (test code = 704-7) 0.0 0.0-0.1 [facility]villeAbsolute Immature Granulocyte (auto 2019-03-16 05:34:00* Test Item Value Reference Range Interpretation Comments Absolute Immature Granulocyte (auto (jourdan t code = Absolute Immature Granulocyte (auto) 0.02 0-0.1 [facility]villeFluoroscopic procedure less than one hour hnadqyhk4169-77-34 04:00:00* Test Item Value Reference Range Interpretation Comments Differential Total Cells Counted (test code = Differclarice tial Total Cells Counted) 100 [facility] blood neutrophils/100 leukocytes 2019-03-16 04:00:00* Test Item Value Reference Range Interpretation Comments Neutrophils % (Manual) (test code = 91758-0) 42 40-74 [facility] blood lymphocytes/100 leukocytes 2019-03-16 04:00:00* Test Item Value Reference Range Interpretation Comments Lymphocytes % (Manual) (test code = 737-7) 49 19-48 [facility] blood monocytes/100 leukocytes 2019-03-16 04:00:00* Test Item Value Reference Range Interpretation Comments Monocytes % (Manual) (test code = 744-3) 5 3.4-9.0 [facility] lymphocytes variant count (number/volume)2019-03-16 04:00:00* Test Item Value Reference Range Interpretation Comments Reactive Lymphocytes (test code = 97854-0) 4 [facility] platelets count by estimate (number/volume)2019-03-16 04:00:00* Test Item Value Reference Range Interpretation Comments Platelet Estimate (test code = 24023-4) ADEQUATE [facility]villePlatelet lqrvncmtfh3597-29-02 04:00:00* Test Item Value Reference Range Interpretation Comments Platelet Morphology Comment (test code = 48759-2) NORMAL [facility] vrlqqfseln4664-20-20 04:00:00* Test Item Value Reference Range Interpretation Comments Red Cell Morphology Comment (test code = 6742-1) NORMAL [facility]villeFluoroscopic procedure less than one hour wktlcthy8797-06-77 04:00:00* Test Item Value Reference Range Interpretation Comments Differential Total Cells Counted (test code = Differclarice tial Total Cells Counted) 100 [facility] blood neutrophils/100 leukocytes 2019-03-16 04:00:00* Test Item Value Reference Range Interpretation Comments Neutrophils % (Manual) (test code = 00224-4) 42 40-74 [facility] blood lymphocytes/100 leukocytes 2019-03-16 04:00:00* Test Item Value Reference Range Interpretation Comments Lymphocytes % (Manual) (test code = 737-7) 49 19-48 [facility] blood monocytes/100 leukocytes 2019-03-16 04:00:00* Test Item Value Reference Range Interpretation Comments Monocytes % (Manual) (test code = 744-3) 5 3.4-9.0 [facility] lymphocytes variant count (number/volume)2019-03-16 04:00:00* Test Item Value Reference Range Interpretation Comments Reactive Lymphocytes (test code = 04145-1) 4 [facility] platelets count by estimate (number/volume)2019-03-16 04:00:00* Test Item Value Reference Range Interpretation Comments Platelet Estimate (test code = 07378-3) ADEQUATE [facility]Pl[facility] ldlpfjxxun6207-19-59 04:00:00* Test Item Value Reference Range Interpretation Comments Platelet Morphology Comment (test code = 18568-2) NORMAL [facility] kccikmsqxu9422-99-28 04:00:00* Test Item Value Reference Range Interpretation Comments Red Cell Morphology Comment (test code = 6742-1) NORMAL [facility]villeFluoroscopic procedure less than one hour xeaellik7505-91-34 04:00:00* Test Item Value Reference Range Interpretation Comments Differential Total Cells Counted (test code = Alconclarice tial Total Cells Counted) 100 [facility] blood neutrophils/100 leukocytes 2019-03-16 04:00:00* Test Item Value Reference Range Interpretation Comments Neutrophils % (Manual) (test code = 58143-6) 42 40-74 [facility] blood lymphocytes/100 leukocytes 2019-03-16 04:00:00* Test Item Value Reference Range Interpretation Comments Lymphocytes % (Manual) (test code = 737-7) 49 19-48 [facility] blood monocytes/100 leukocytes 2019-03-16 04:00:00* Test Item Value Reference Range Interpretation Comments Monocytes % (Manual) (test code = 744-3) 5 3.4-9.0 [facility] lymphocytes variant count (number/volume)2019-03-16 04:00:00* Test Item Value Reference Range Interpretation Comments Reactive Lymphocytes (test code = 45507-6) 4 [facility] platelets count by estimate (number/volume)2019-03-16 04:00:00* Test Item Value Reference Range Interpretation Comments Platelet Estimate (test code = 50421-1) ADEQUATE [facility] ockpidvrly5248-10-30 04:00:00* Test Item Value Reference Range Interpretation Comments Platelet Morphology Comment (test code = 09299-3) NORMAL [facility] eqxnzognyz4546-26-07 04:00:00* Test Item Value Reference Range Interpretation Comments Red Cell Morphology Comment (test code = 6742-1) NORMAL [facility]villeFluoroscopic procedure less than one hour fvjwreba8433-65-74 04:00:00* Test Item Value Reference Range Interpretation Comments Differential Total Cells Counted (test code = Norma tial Total Cells Counted) [facility] leukocytes 2019-03-16 04:00:00* Test Item Value Reference Range Interpretation Comments Neutrophils % (Manual) (test code = 06016-7) 42 40-74 [facility]/100 leukocytes 2019-03-16 04:00:00* Test Item Value Reference Range Interpretation Comments Lymphocytes % (Manual) (test code = 737-7) 49 19-48 [facility] blood monocytes/100 leukocytes 2019-03-16 04:00:00* Test Item Value Reference Range Interpretation Comments Monocytes % (Manual) (test code = 744-3) 5 3.4-9.0 [facility]villeBlood lymphocytes variant count (number/volume)2019-03-16 04:00:00* Test Item Value Reference Range Interpretation Comments Reactive Lymphocytes (test code = 30836-7) 4 [facility]villeBlood platelets count by estimate (number/volume)2019-03-16 04:00:00* Test Item Value Reference Range Interpretation Comments Platelet Estimate (test code = 65096-8) ADEQUATE [facility]villePlatelet rwxdwaiqhm6580-45-60 04:00:00* Test Item Value Reference Range Interpretation Comments Platelet Morphology Comment (test code = 20104-7) NORMAL [facility]villeRB gizsewjazi8022-25-48 04:00:00* Test Item Value Reference Range Interpretation Comments Red Cell Morphology Comment (test code = 6742-1) NORMAL [facility]villeVitamin B12 Tpuld1077-28-00 21:54:00* Test Item Value Reference Range Interpretation Comments Vitamin B12 Level (test code = 37801-0) 605 213-816 [facility]villeVitamin B12 Bmpdu7957-08-62 21:54:00* Test Item Value Reference Range Interpretation Comments Vitamin B12 Level (test code = 02597-2) 605 213-816 [facility]villeVitamin B12 Bklsv7395-86-14 21:54:00* Test Item Value Reference Range Interpretation Comments Vitamin B12 Level (test code = 71653-0) 605 213-816 [facility]villeFerritin2019-11-13 21:44:00* Test Item Value Reference Range Interpretation Comments Ferritin (test code = 2276-4) 387.29 21.81-274.66 H [facility]villeThyroid Stimulating Hormone (TSH) 2019-03-15 21:44:00* Test Item Value Reference Range Interpretation Comments Thyroid Stimulating Hormone (TSH) (test code = 35575-5) 2.573 0.350-4.940 [facility]villeFerritin2019-11-13 21:44:00* Test Item Value Reference Range Interpretation Comments Ferritin (test code = 2276-4) 387.29 21.81-274.66 H [facility]villeThyroid Stimulating Hormone (TSH) 2019-03-15 21:44:00* Test Item Value Reference Range Interpretation Comments Thyroid Stimulating Hormone (TSH) (test code = 05782-7) 2.573 0.350-4.940 [facility]villeFerritin2019-11-13 21:44:00* Test Item Value Reference Range Interpretation Comments Ferritin (test code = 2276-4) 387.29 21.81-274.66 H [facility]villeThyroid Stimulating Hormone (TSH) 2019-03-15 21:44:00* Test Item Value Reference Range Interpretation Comments Thyroid Stimulating Hormone (TSH) (test code = 97214-2) 2.573 0.350-4.940 [facility]villeErythrocyte Sedimentation Ukuj3973-03-14 21:33:00* Test Item Value Reference Range Interpretation Comments Erythrocyte Sedimentation Rate (test code = 4537-7) 62 0- 13 H [facility]villeErythrocyte Sedimentation Mlkx2169-35-40 21:33:00* Test Item Value Reference Range Interpretation Comments Erythrocyte Sedimentation Rate (test code = 4537-7) 62 0- 13 H [facility]villeErythrocyte Sedimentation Ofjo9569-30-21 21:33:00* Test Item Value Reference Range Interpretation Comments Erythrocyte Sedimentation Rate (test code = 4537-7) 62 0- 13 H [facility]villeIron Bbsiy5307-77-85 21:22:00* Test Item Value Reference Range Interpretation Comments Iron Level (test code = 2498-4) 69 65-175 [facility]villeTotal Iron Binding Hgepamsw7068-40-78 21:22:00* Test Item Value Reference Range Interpretation Comments Total Iron Binding Capacity (test code = 2500-7) 256 261-4 78 L [facility] [place]villePercent Iron Zvmotnhmja3534-83-78 21:22:00* Test Item Value Reference Range Interpretation Comments Percent Iron Saturation (test code = 2502-3) 27 15-50 [facility]villeTransferrin2019-11-13 21:22:00* Test Item Value Reference Range Interpretation Comments Transferrin (test code = 3034-6) 183 174-364 [facility]villeAmylase Kiluc9583-83-66 21:22:00* Test Item Value Reference Range Interpretation Comments Amylase Level (test code = 1798-8) 68 25-125 [facility]villeLipase2019-11-13 21:22:00* Test Item Value Reference Range Interpretation Comments Lipase (test code = 3040-3) 14 8-78 [facility]villeIron Fsxay5049-60-36 21:22:00* Test Item Value Reference Range Interpretation Comments Iron Level (test code = 2498-4) 69 65-175 [facility] [place]villeTotal Iron Binding Betrzjfi3675-78-99 21:22:00* Test Item Value Reference Range Interpretation Comments Total Iron Binding Capacity (test code = 2500-7) 256 261-4 78 L [facility] [place]villePercent Iron Moonqjtbsl3574-24-71 21:22:00* Test Item Value Reference Range Interpretation Comments Percent Iron Saturation (test code = 2502-3) 27 15-50 [facility]villeTransferrin2019-11-13 21:22:00* Test Item Value Reference Range Interpretation Comments Transferrin (test code = 3034-6) 183 174-364 [facility]villeAmylase Kfgwb1079-59-90 21:22:00* Test Item Value Reference Range Interpretation Comments Amylase Level (test code = 1798-8) 68 25-125 [facility]villeLipase2019-11-13 21:22:00* Test Item Value Reference Range Interpretation Comments Lipase (test code = 3040-3) 14 8-78 [facility]villeIron Vusqq1328-51-99 21:22:00* Test Item Value Reference Range Interpretation Comments Iron Level (test code = 2498-4) 69 65-175 [facility]villeTotal Iron Binding Arofbgpk8708-82-53 21:22:00* Test Item Value Reference Range Interpretation Comments Total Iron Binding Capacity (test code = 2500-7) 256 261-4 78 L [facility] [place]villePercent Iron Oxzgudddjs4489-06-88 21:22:00* Test Item Value Reference Range Interpretation Comments Percent Iron Saturation (test code = 2502-3) 27 15-50 [facility]villeTransferrin2019-11-13 21:22:00* Test Item Value Reference Range Interpretation Comments Transferrin (test code = 3034-6) 183 174-364 [facility]Percent Reticulocyte Tlvoj1475-78-22 21:04:00* Test Item Value Reference Range Interpretation Comments Percent Reticulocyte Count (test code = 12137-6) 1.3 0.8-2 .2 [facility]Percent Reticulocyte Dkqxs1179-13-20 21:04:00* Test Item Value Reference Range Interpretation Comments Percent Reticulocyte Count (test code = 31146-3) 1.3 0.8-2 .2 [facility]villePercent Reticulocyte Ktxfp6188-02-66 21:04:00* Test Item Value Reference Range Interpretation Comments Percent Reticulocyte Count (test code = 20896-3) 1.3 0.8-2 .2 [facility]villeErythrocyte sedimentation rate by Westergren dalhud0572-16-72 19:20:00* Test Item Value Reference Range Interpretation Comments Erythrocyte Sedimentation Rate (test code = 4537-7) 62 0- 13 [facility]villeAutomated reticulocyte count as percentage of total qpfukjshhmgn2003-08-90 19:20:00* Test Item Value Reference Range Interpretation Comments Percent Reticulocyte Count (test code = 24511-6) 1.3 0.8-2 .2 [facility] iron measurement (mass/volume)2019-03-15 19:20:00* Test Item Value Reference Range Interpretation Comments Iron Level (test code = 2498-4) 69 65-175 [facility]oerum or plasma iron binding capacity measurement (mass/volume)2019-03-15 19:20:00* Test Item Value Reference Range Interpretation Comments Total Iron Binding Capacity (test code = 2500-7) 256 261-4 78 [facility]oerum or plasma iron saturation measurement (mass fraction)2019-03-15 19:20:00* Test Item Value Reference Range Interpretation Comments Percent Iron Saturation (test code = 2502-3) 27 15-50 [facility]oerum or plasma transferrin measurement (mass/volume)2019-03-15 19:20:00* Test Item Value Reference Range Interpretation Comments Transferrin (test code = 3034-6) 183 174-364 [facility]oerum or plasma ferritin measurement (mass/volume)2019-03-15 19:20:00* Test Item Value Reference Range Interpretation Comments Ferritin (test code = 2276-4) 387.29 21.81-274.66 [facility]villeBlood cobalamin (vitamin B12) measurement (mass/volume)2019-03-15 19:20:00* Test Item Value Reference Range Interpretation Comments Vitamin B12 Level (test code = 17912-6) 606 213816 [facility]oerum or plasma thyrotropin measurement by detection limit <= 0.005 miu/l (units/volume)2019-03-15 19:20:00* Test Item Value Reference Range Interpretation Comments Thyroid Stimulating Hormone (TSH) (test code = 04598-5) 2.573 0.350-4.940 [facility]villeBlood folate measurement (mass/volume) 2019-03-15 19:20:00* Test Item Value Reference Range Interpretation Comments RBC Folate Hemolysate (test code = 2282-2) 268.2 Not Estab. [facility]villeAutomated blood hematocrit (volume fraction)2019-03-15 19:20:00* Test Item Value Reference Range Interpretation Comments Hematocrit (test code = 4544-3) 29.1 37.5-51.0 [facility]villeErythrocyte folate measurement (mass/volume)2019-03-15 19:20:00* Test Item Value Reference Range Interpretation Comments Red Blood Cell Folate (test code = 2283-0) 922 >498 Performed at: [employer] [address] [id number] Director: Alejo Malin MD, Phone: [phone] Hospital of Laredoerum tissue transglutaminase IgA antibody pktresoqm2926-76-68 19:20:00* Test Item Value Reference Range Interpretation Comments Tissue Transglutaminase IgA Ab (test code = 03127-5) <2 0 -3 Negative 0 - 3 Weak Positive 4 - 10 Positive >10 Tissue Transglutaminase (tTG) has been identified as the endomysial antigen. Studies have demonstr- ated that endomysial IgA antibodies have over 99% specif icity for gluten sensitive enteropathy.[facility] Serum or plasma IgA measurement (mass/volume)2019-03-15 19:20:00* Test Item Value Reference Range Interpretation Comments Immunoglobulin A (test code = 2458-8) 150 90-386 Performed at: [employer] [address] [id number] [employer]: Lai Olson MD, Phone: [phone] at: [employer] [address] [id number] Director: Alejo Malin MD, Ph one: [phone] Hospital of Laredoerum endomysium IgA antibody ikaxvyugr1063-88-80 19:20:00* Test Item Value Reference Range Interpretation Comments Endomysial IgA Antibody (test code = 88916-6) Negative Negative [facility]aredoerum or plasma C reactive protein measurement (mass/volume)2019-03-15 19:20:00* Test Item Value Reference Range Interpretation Comments C-Reactive Protein (test code = 1988-5) 3 0-10 Performed at: - [facility] CareJylugsl[address] [place], [place] [id number] Director: Alejo Malin MD, Phone: [phone]villeErythrocyte sedimentation rate by Westergren idogwr3557-23-62 19:20:00* Test Item Value Reference Range Interpretation Comments Erythrocyte Sedimentation Rate (test code = 4537-7) 62 0- 13 [facility]villeAutomated reticulocyte count as percentage of total hhsqlyxgoitb0104-25-44 19:20:00* Test Item Value Reference Range Interpretation Comments Percent Reticulocyte Count (test code = 42572-3) 1.3 0.8-2 .2 [facility]aredoerum or plasma iron measurement (mass/volume)2019-03-15 19:20:00* Test Item Value Reference Range Interpretation Comments Iron Level (test code = 2498-4) 69 65-175 [facility]oerum or plasma iron binding capacity measurement (mass/volume)2019-03-15 19:20:00* Test Item Value Reference Range Interpretation Comments Total Iron Binding Capacity (test code = 2500-7) 256 261-4 78 [facility]aredoerum or plasma iron saturation measurement (mass fraction)2019-03-15 19:20:00* Test Item Value Reference Range Interpretation Comments Percent Iron Saturation (test code = 2502-3) 27 15-50 [facility]oerum or plasma transferrin measurement (mass/volume)2019-03-15 19:20:00* Test Item Value Reference Range Interpretation Comments Transferrin (test code = 3034-6) 183 174-364 [facility]oerum or plasma ferritin measurement (mass/volume)2019-03-15 19:20:00* Test Item Value Reference Range Interpretation Comments Ferritin (test code = 2276-4) 387.29 21.81-274.66 [facility]villeBlood cobalamin (vitamin B12) measurement (mass/volume)2019-03-15 19:20:00* Test Item Value Reference Range Interpretation Comments Vitamin B12 Level (test code = 20924-9) 601 213-118 [facility]aredoerum or plasma thyrotropin measurement by detection limit <= 0.005 miu/l (units/volume)2019-03-15 19:20:00* Test Item Value Reference Range Interpretation Comments Thyroid Stimulating Hormone (TSH) (test code = 44080-2) 2.573 0.350-4.940 [facility]villeBlood folate measurement (mass/volume) 2019-03-15 19:20:00* Test Item Value Reference Range Interpretation Comments RBC Folate Hemolysate (test code = 2282-2) 268.2 Not Estab. [facility]villeAutomated blood hematocrit (volume fraction)2019-03-15 19:20:00* Test Item Value Reference Range Interpretation Comments Hematocrit (test code = 4544-3) 29.1 37.5-51.0 [facility]villeErythrocyte folate measurement (mass/volume)2019-03-15 19:20:00* Test Item Value Reference Range Interpretation Comments Red Blood Cell Folate (test code = 2283-0) 922 >498 Performed at: [employer] [address] [id number] Director: Alejo Malin MD, Phone: [phone] Hospital of Laredoerum tissue transglutaminase IgA antibody punnlkrmq2343-44-48 19:20:00* Test Item Value Reference Range Interpretation Comments Tissue Transglutaminase IgA Ab (test code = 69051-2) <2 0 -3 Negative 0 - 3 Weak Positive 4 - 10 Positive >10 Tissue Transglutaminase (tTG) has been identified as the endomysial antigen. Studies have demonstr- ated that endomysial IgA antibodies have over 99% specif icity for gluten sensitive enteropathy.[facility] Serum or plasma IgA measurement (mass/volume)2019-03-15 19:20:00* Test Item Value Reference Range Interpretation Comments Immunoglobulin A (test code = 2458-8) 150 90-386 Performed at: [employer] [place] [id number] Yard Pipe Grader: Lai Olson MD, Phone: [phone] at: [employer] [facility] [id number] Director: Alejo Malin MD, Ph one: [phone] Hospital of Laredoerum endomysium IgA antibody ovkwedhck5437-51-71 19:20:00* Test Item Value Reference Range Interpretation Comments Endomysial IgA Antibody (test code = 63563-5) Negative Negative [facility] plasma C reactive protein measurement (mass/volume)2019-03-15 19:20:00* Test Item Value Reference Range Interpretation Comments C-Reactive Protein (test code = 1988-5) 3 0-10 Performed at: [employer] [facility] [address] [id number] Director: Alejo Malin MD, Phone: [phone] BrownsvilleErythrocyte sedimentation rate by Westergren koajxg6512-37-00 19:20:00* Test Item Value Reference Range Interpretation Comments Erythrocyte Sedimentation Rate (test code = 4537-7) 62 0- 13 [facility] BrownsvilleAutomated reticulocyte count as percentage of total uuifmuwqtjyf7549-40-48 19:20:00* Test Item Value Reference Range Interpretation Comments Percent Reticulocyte Count (test code = 13171-6) 1.3 0.8-2 .2 [facility] or plasma iron measurement (mass/volume)2019-03-15 19:20:00* Test Item Value Reference Range Interpretation Comments Iron Level (test code = 2498-4) 69 65-175 [facility]um or plasma iron binding capacity measurement (mass/volume)2019-03-15 19:20:00* Test Item Value Reference Range Interpretation Comments Total Iron Binding Capacity (test code = 2500-7) 256 261-4 78 [facility]oerum or plasma iron saturation measurement (mass fraction)2019-03-15 19:20:00* Test Item Value Reference Range Interpretation Comments Percent Iron Saturation (test code = 2502-3) 27 15-50 [facility]erum or plasma transferrin measurement (mass/volume)2019-03-15 19:20:00* Test Item Value Reference Range Interpretation Comments Transferrin (test code = 3034-6) 183 174-364 [facility] or plasma ferritin measurement (mass/volume)2019-03-15 19:20:00* Test Item Value Reference Range Interpretation Comments Ferritin (test code = 2276-4) 387.29 21.81-274.66 [facility]villeBlood cobalamin (vitamin B12) measurement (mass/volume)2019-03-15 19:20:00* Test Item Value Reference Range Interpretation Comments Vitamin B12 Level (test code = 03036-5) 605 213-816 [facility]um or plasma thyrotropin measurement by detection limit <= 0.005 miu/l (units/volume)2019-03-15 19:20:00* Test Item Value Reference Range Interpretation Comments Thyroid Stimulating Hormone (TSH) (test code = 47469-4) 2.573 0.350-4.940 [facility]villeBlood folate measurement (mass/volume) 2019-03-15 19:20:00* Test Item Value Reference Range Interpretation Comments RBC Folate Hemolysate (test code = 2282-2) 268.2 Not Estab. [facility] BrownsvilleAutomated blood hematocrit (volume fraction)2019-03-15 19:20:00* Test Item Value Reference Range Interpretation Comments Hematocrit (test code = 4544-3) 29.1 37.5-51.0 [facility] BrownsvilleErythrocyte folate measurement (mass/volume)2019-03-15 19:20:00* Test Item Value Reference Range Interpretation Comments Red Blood Cell Folate (test code = 2283-0) 922 >498 Performed at: [facility] [id number] Director: Alejo Malin MD, Phone: [phone] Hospital of Laredoerum tissue transglutaminase IgA antibody orgmszpiu3068-16-77 19:20:00* Test Item Value Reference Range Interpretation Comments Tissue Transglutaminase IgA Ab (test code = 91067-0) <2 0 -3 Negative 0 - 3 Weak Positive 4 - 10 Positive >10 Tissue Transglutaminase (tTG) has been identified as the endomysial antigen. Studies have demonstr- ated that endomysial IgA antibodies have over 99% specif icity for gluten sensitive enteropathy.[facility] [place] Serum or plasma IgA measurement (mass/volume)2019-03-15 19:20:00* Test Item Value Reference Range Interpretation Comments Immunoglobulin A (test code = 2458-8) 150 90-386 Performed at: [employer] [id number] [employer] Grader: Lai Olson MD, Phone: [phone] at: [address] [id number] Director: Alejo Malin MD, Ph one: [phone] Hospital of Laredoerum endomysium IgA antibody mnwosusdr2302-99-13 19:20:00* Test Item Value Reference Range Interpretation Comments Endomysial IgA Antibody (test code = 49495-8) Negative Negative [facility] or plasma C reactive protein measurement (mass/volume)2019-03-15 19:20:00* Test Item Value Reference Range Interpretation Comments C-Reactive Protein (test code = 1988-5) 3 0-10 Performed at: [facility] [employer] [id number] Director: Alejo Malin MD, Phone: [phone] Baptist Medical Center – BrownsvilleErythrocyte sedimentation rate by Westergren fnvdgl5661-17-11 19:20:00* Test Item Value Reference Range Interpretation Comments Erythrocyte Sedimentation Rate (test code = 4537-7) 62 0- 13 [facility] BrownsvilleAutomated reticulocyte count as percentage of total fwlpixpkojey8551-39-98 19:20:00* Test Item Value Reference Range Interpretation Comments Percent Reticulocyte Count (test code = 45233-0) 1.3 0.8-2 .2 [facility]oerum or plasma iron measurement (mass/volume)2019-03-15 19:20:00* Test Item Value Reference Range Interpretation Comments Iron Level (test code = 2498-4) 69 65-175 [facility]oerum or plasma iron binding capacity measurement (mass/volume)2019-03-15 19:20:00* Test Item Value Reference Range Interpretation Comments Total Iron Binding Capacity (test code = 2500-7) 256 261-4 78 [facility]oerum or plasma iron saturation measurement (mass fraction)2019-03-15 19:20:00* Test Item Value Reference Range Interpretation Comments Percent Iron Saturation (test code = 2502-3) 27 15-50 [facility]erum or plasma transferrin measurement (mass/volume)2019-03-15 19:20:00* Test Item Value Reference Range Interpretation Comments Transferrin (test code = 3034-6) 183 174-364 [facility]oerum or plasma ferritin measurement (mass/volume)2019-03-15 19:20:00* Test Item Value Reference Range Interpretation Comments Ferritin (test code = 2276-4) 387.29 21.81-274.66 [facility]villeBlood cobalamin (vitamin B12) measurement (mass/volume)2019-03-15 19:20:00* Test Item Value Reference Range Interpretation Comments Vitamin B12 Level (test code = 63405-5) 605 213-816 [facility]oerum or plasma thyrotropin measurement by detection limit <= 0.005 miu/l (units/volume)2019-03-15 19:20:00* Test Item Value Reference Range Interpretation Comments Thyroid Stimulating Hormone (TSH) (test code = 90403-6) 2.573 0.350-4.940 [facility]villeBlood folate measurement (mass/volume) 2019-03-15 19:20:00* Test Item Value Reference Range Interpretation Comments RBC Folate Hemolysate (test code = 2282-2) 268.2 Not Estab. [facility] BrownsvilleAutomated blood hematocrit (volume fraction)2019-03-15 19:20:00* Test Item Value Reference Range Interpretation Comments Hematocrit (test code = 4544-3) 29.1 37.5-51.0 [facility] BrownsvilleErythrocyte folate measurement (mass/volume)2019-03-15 19:20:00* Test Item Value Reference Range Interpretation Comments Red Blood Cell Folate (test code = 2283-0) 922 >498 Performed at: [facility] [id number] Director: Alejo Malin MD, Phone: [phone] Hospital of Laredoerum tissue transglutaminase IgA antibody waidzcddc4062-17-05 19:20:00* Test Item Value Reference Range Interpretation Comments Tissue Transglutaminase IgA Ab (test code = 16048-1) <2 0 -3 Negative 0 - 3 Weak Positive 4 - 10 Positive >10 Tissue Transglutaminase (tTG) has been identified as the endomysial antigen. Studies have demonstr- ated that endomysial IgA antibodies have over 99% specif icity for gluten sensitive enteropathy.[facility] Serum or plasma IgA measurement (mass/volume)2019-03-15 19:20:00* Test Item Value Reference Range Interpretation Comments Immunoglobulin A (test code = 2458-8) 150 90-386 Performed at: [employer] [id number] [employer] P[employer] Grader: Lai Olson MD, Phone: [phone] at: [facility] [employer] [id number] Director: Alejo Malin MD, Ph one: [phone] Hospital of Laredoerum endomysium IgA antibody yzctafutb0650-78-60 19:20:00* Test Item Value Reference Range Interpretation Comments Endomysial IgA Antibody (test code = 98992-6) Negative Negative [facility]oerum or plasma C reactive protein measurement (mass/volume)2019-03-15 19:20:00* Test Item Value Reference Range Interpretation Comments C-Reactive Protein (test code = 1988-5) 3 0-10 Performed at: [facility] [employer] [id number] Director: Alejo Malin MD, Phone: [phone] [facility] Center – BrownsvilleTotal Ecowipctg7164-10-84 12:59:00* Test Item Value Reference Range Interpretation Comments Total Bilirubin (test code = 1975-2) 0.4 0.2-1.2 [facility] BrownsvilleAspartate Amino Transf (AST/SGOT) 2019-03-14 12:59:00* Test Item Value Reference Range Interpretation Comments Aspartate Amino Transf (AST/SGOT) (test code = Aspartate Amino Transf (AST/SGOT)) 25 534 [facility] BrownsvilleAlanine Aminotransferase (ALT/SGPT) 2019-03-14 12:59:00* Test Item Value Reference Range Interpretation Comments Alanine Aminotransferase (ALT/SGPT) (test code = 1742-6) 24 0-55 [facility] BrownsvilleTotal Aairxzf0088-76-89 12:59:00* Test Item Value Reference Range Interpretation Comments Total Protein (test code = 2885-2) 7.2 6.5-8.1 [facility] BrownsvilleAlbumin2019-11-12 12:59:00* Test Item Value Reference Range Interpretation Comments Albumin (test code = 1751-7) 3.5 3.5-5.0 [facility] BrownsvilleGlobulin2019-11-12 12:59:00* Test Item Value Reference Range Interpretation Comments Globulin (test code = 82927-8) 3.7 2.3-3.5 H [facility] BrownsvilleAlbumin/Globulin Ebobu2209-19-61 12:59:00 * Test Item Value Reference Range Interpretation Comments Albumin/Globulin Ratio (test code = 1759-0) 0.9 0.8-2.0 [facility] BrownsvilleAlkaline Dvkivviqzra1886-83-17 12:59:00* Test Item Value Reference Range Interpretation Comments Alkaline Phosphatase (test code = 6768-6) 69 40-150 [facility] BrownsvilleTotal Isutudgsa6858-95-55 12:59:00* Test Item Value Reference Range Interpretation Comments Total Bilirubin (test code = 1975-2) 0.4 0.2-1.2 [facility] BrownsvilleAspartate Amino Transf (AST/SGOT) 2019-03-14 12:59:00* Test Item Value Reference Range Interpretation Comments Aspartate Amino Transf (AST/SGOT) (test code = Aspartate Amino Transf (AST/SGOT)) 25 534 [facility] BrownsvilleAlanine Aminotransferase (ALT/SGPT) 2019-03-14 12:59:00* Test Item Value Reference Range Interpretation Comments Alanine Aminotransferase (ALT/SGPT) (test code = 1742-6) 24 0-55 [facility] BrownsvilleTotal Wxrnnos1073-15-23 12:59:00* Test Item Value Reference Range Interpretation Comments Total Protein (test code = 2885-2) 7.2 6.5-8.1 [facility] BrownsvilleAlbumin2019-11-12 12:59:00* Test Item Value Reference Range Interpretation Comments Albumin (test code = 1751-7) 3.5 3.5-5.0 [facility] BrownsvilleGlobulin2019-11-12 12:59:00* Test Item Value Reference Range Interpretation Comments Globulin (test code = 89916-6) 3.7 2.3-3.5 H [facility] BrownsvilleAlbumin/Globulin Sasdf9847-06-77 12:59:00 * Test Item Value Reference Range Interpretation Comments Albumin/Globulin Ratio (test code = 1759-0) 0.9 0.8-2.0 [facility] BrownsvilleAlkaline Meneykjvgux1433-25-77 12:59:00* Test Item Value Reference Range Interpretation Comments Alkaline Phosphatase (test code = 6768-6) 69 40-150 [facility] BrownsvilleCT ABDOMEN/PELVIS LX2468-61-23 12:24:00 [facility] [address] [address] Patient Name: QUYEN KIM MR #: [id number] : 1980 Age/Sex: 38/M Req #: [id number] Adm Physician: Ordered by: WESLY SPICER DO Report #: [id number] Location: Room/Bed: Procedure: [id number] CT/CT ABDOMEN/PELVIS WO Exam Date: 03/14/19 Exam [...] By: STIVEN DAI MD 1232 Transcribed By: JEANEN on 03/14/19 1232 COPY TO: WESLY SPICER DO Eosinophils % (Manual)2019-03-13 21:32:00* Test Item Value Reference Range Interpretation Comments Eosinophils % (Manual) (test code = 714-6) 3 0-7 [facility] BrownsvilleMetamyelocytes %2019-03-13 21:32:00* Test Item Value Reference Range Interpretation Comments Metamyelocytes % (test code = 740-1) 1 0-0 H [facility] BrownsvilleAnisocytosis2019-11-11 21:32:00* Test Item Value Reference Range Interpretation Comments Anisocytosis (test code = 702-1) SLIGHT [facility] BrownsvilleHowell-Lawrence Bfyuxm5073-09-98 21:32:00* Test Item Value Reference Range Interpretation Comments [place] Bodies (test code = 7793-3) MAIRA [facility] BrownsvilleEosinophils % (Manual)2019-03-13 21:32:00 * Test Item Value Reference Range Interpretation Comments Eosinophils % (Manual) (test code = 714-6) 3 0-7 [facility] BrownsvilleMetamyelocytes %2019-03-13 21:32:00* Test Item Value Reference Range Interpretation Comments Metamyelocytes % (test code = 740-1) 1 0-[address] [facility]-11 21:32:00* Test Item Value Reference Range Interpretation Comments Anisocytosis (test code = 702-1) SLIGHT [facility] BrownsvilleHowell-Lawrence Zcpjwb2082-27-80 21:32:00* Test Item Value Reference Range Interpretation Comments [place] Bodies (test code = 7793-3) [facility] ([facility])2019-03-13 21:32:00 * Test Item Value Reference Range Interpretation Comments Eosinophils % (Manual) (test code = 714-6) 3 0-7 [facility] BrownsvilleMetamyelocytes %2019-03-13 21:32:00* Test Item Value Reference Range Interpretation Comments Metamyelocytes % (test code = 740-1) 1 0-0 H [facility] BrownsvilleAnisocytosis2019-11-11 21:32:00* Test Item Value Reference Range Interpretation Comments Anisocytosis (test code = 702-1) SLIGHT [facility] BrownsvilleHowell-Lawrence Lsecwy4865-90-84 21:32:00* Test Item Value Reference Range Interpretation Comments [place] Bodies (test code = 7793-3) [facility] QOX0175-18-74 16:21:00* Test Item Value Reference Range Interpretation Comments Urine WBC (test code = 5821-4) NONE 0-5 [facility] YUB9352-24-31 16:21:00* Test Item Value Reference Range Interpretation Comments Urine RBC (test code = 79985-7) 6-10 0-5 H [facility] Wozcpncm5489-19-56 16:21:00* Test Item Value Reference Range Interpretation Comments Urine Bacteria (test code = 13665-0) NONE NONE [facility] Epithelial Oamnd2869-98-98 16:21:00 * Test Item Value Reference Range Interpretation Comments Urine Epithelial Cells (test code = 01449-5) NONE NONE [facility] Calcium Carbonate Crystals 2019-03-13 16:21:00* Test Item Value Reference Range Interpretation Comments Urine Calcium Carbonate Crystals (test code = 5773-7) MANY NONE H [facility] CSO0215-16-05 16:21:00* Test Item Value Reference Range Interpretation Comments Urine WBC (test code = 5821-4) NONE 0-5 [facility] TMU7382-01-86 16:21:00* Test Item Value Reference Range Interpretation Comments Urine RBC (test code = 40596-8) 6-10 0-5 H [facility] Euzlwxkf9523-39-06 16:21:00* Test Item Value Reference Range Interpretation Comments Urine Bacteria (test code = 20682-8) NONE NONE [facility] Epithelial Yxpvh4506-90-16 16:21:00 * Test Item Value Reference Range Interpretation Comments Urine Epithelial Cells (test code = 23101-4) NONE NONE [facility] Calcium Carbonate Crystals 2019-03-13 16:21:00* Test Item Value Reference Range Interpretation Comments Urine Calcium Carbonate Crystals (test code = 5773-7) MANY NONE H [facility] CWG6981-68-38 16:21:00* Test Item Value Reference Range Interpretation Comments Urine WBC (test code = 5821-4) NONE 0-5 [facility] EOP6574-79-01 16:21:00* Test Item Value Reference Range Interpretation Comments Urine RBC (test code = 27253-6) 6-10 0-5 H [facility]villeUrine Fhynythe4390-44-39 16:21:00* Test Item Value Reference Range Interpretation Comments Urine Bacteria (test code = 43379-3) NONE NONE [facility]villeUrine Epithelial Xnsac5695-15-73 16:21:00 * Test Item Value Reference Range Interpretation Comments Urine Epithelial Cells (test code = 98875-6) NONE NONE [facility] BrownsvilleUrine Calcium Carbonate Crystals 2019-03-13 16:21:00* Test Item Value Reference Range Interpretation Comments Urine Calcium Carbonate Crystals (test code = 5773-7) MANY NONE H [facility] BrownsvilleUrine Calcium Carbonate Crystals 2019-03-13 16:21:00* Test Item Value Reference Range Interpretation Comments Urine Calcium Carbonate Crystals (test code = 5773-7) MANY NONE H [facility]villeCT ABDOMEN/PELVIS D4551-50-47 16:17:00 [facility] [address] [place] [address] Patient Name: QUYEN KIM MR #: [id number] : 1980 Age/Sex: 38/M Req #: [id number] Adm Physician: Ordered by: MARISOL ALBERT, PAULINE ALBERT Report #: [id number] Location: ER Room/Bed: Procedure: [id number] C T/CT ABDOMEN/PELVIS W Exam Date: 03/13/19 [...] COPY TO : PAULINE DAMON Urine Opiates Kwypyw0162-33-86 16:13:00* Test Item Value Reference Range Interpretation Comments Urine Opiates Screen (test code = 07016-0) POSITIVE NEGATIVE H ALL TESTS PERFORMED MANUALLY ON [employer] TOX/SEE TEST This test provides only a sc reen. Positive results should be repeated by a confirmatory test.[facility]villeUrine Barbiturates Ilrnwe5414-07-44 16:13:00* Test Item Value Reference Range Interpretation Comments Urine Barbiturates Screen (test code = 002443260) NEGATIVE NEGA TIVE [facility]villeUrine Phencyclidine Frgwsw2745-34-73 16:13:00* Test Item Value Reference Range Interpretation Comments Urine Phencyclidine Screen (test code = 24375-7) NEGATIVE NEGAT ANGY [facility]villeUrine Amphetamines Esbzan6582-96-90 16:13:00* Test Item Value Reference Range Interpretation Comments Urine Amphetamines Screen (test code = 31618-9) NEGATIVE NEGATI VE [facility]villeUrine Methamphetamines Kdccoz6526-33-94 16:13:00* Test Item Value Reference Range Interpretation Comments Urine Methamphetamines Screen (test code = Urine Metha mphetamines Screen) NEGATIVE NEGATIVE [facility]villeUrine Benzodiazepines Wnsakw9395-24-47 16:13:00* Test Item Value Reference Range Interpretation Comments Urine Benzodiazepines Screen (test code = 61685-2) NEGATIVE NEG ATIVE [facility]villeUrine Cocaine Jmaxyw9374-67-63 16:13:00* Test Item Value Reference Range Interpretation Comments Urine Cocaine Screen (test code = 3398-5) NEGATIVE NEGATIVE [facility]villeUrine Cannabinoids Oxiadu0484-22-99 16:13:00* Test Item Value Reference Range Interpretation Comments Urine Cannabinoids Screen (test code = 91329-7) POSITIVE NEGATI VE H THESE RESULTS ARE FOR MEDICAL TREATMENT ONLYTHIS REPORT CONTAINS UNCONFIR MED SCREENING RESULTS*POSITIVE RESULTS WILL BE CONFIRMED BY REFERENCE LAB UPON R EQUEST CUT-OFFDRUG CLASS CONCENTRATION ng/mLAmphetamines 1000Methamphetamines 1000Cocaine 300Opiate 300Phencyc lidine 25Cannabinoid 50Barbiturates 300Benzodiazepine 300Methadone 300 This test p rovides only a screen. Positive results should be repeated by a confirmatory jourdan t.[facility]villeUrine Methadone Pjrpqa8447-94-98 16:13:00* Test Item Value Reference Range Interpretation Comments Urine Methadone Screen (test code = 66124-9) NEGATIVE NEGATIVE THESE RESULTS ARE FOR MEDICAL TREATMENT ONLYTHIS REPORT CONTAINS UNCONFIR MED SCREENING RESULTS*POSITIVE RESULTS WILL BE CONFIRMED BY REFERENCE LAB UPON R EQUEST CUT-OFFDRUG CLASS CONCENTRATION ng/mLAmphetamines 1000Methamphetamines 1000Cocaine Metabolite 300Opiate 300Phencyc lidine 25Cannabinoid 50Barbiturates 300Benzodiazepine 300Methadone 300[facility] CenterU[facility] Opiates Xzsryo1570-35-13 16:13:00* Test Item Value Reference Range Interpretation Comments Urine Opiates Screen (test code = 73503-4) POSITIVE NEGATIVE H ALL TESTS PERFORMED MANUALLY ON [employer] TOX/SEE TEST This test provides only a sc reen. Positive results should be repeated by a confirmatory test.[facility]villeUrine Barbiturates Hmxxyr0290-92-15 16:13:00* Test Item Value Reference Range Interpretation Comments Urine Barbiturates Screen (test code = 490326801) NEGATIVE NEGA TIVE [facility]villeUrine Phencyclidine Yzivci2951-50-18 16:13:00* Test Item Value Reference Range Interpretation Comments Urine Phencyclidine Screen (test code = 83386-2) NEGATIVE NEGAT ANGY [facility]villeUrine Amphetamines Jttysl5502-75-95 16:13:00* Test Item Value Reference Range Interpretation Comments Urine Amphetamines Screen (test code = 11167-8) NEGATIVE NEGATI VE [facility]villeUrine Methamphetamines Whqlrf0753-45-56 16:13:00* Test Item Value Reference Range Interpretation Comments Urine Methamphetamines Screen (test code = Urine Metha mphetamines Screen) NEGATIVE NEGATIVE [facility]villeU[facility] Benzodiazepines Loaqtf0830-76-36 16:13:00* Test Item Value Reference Range Interpretation Comments Urine Benzodiazepines Screen (test code = 52272-5) NEGATIVE NEG ATIVE [facility]villeUrine Cocaine Cfggwx4938-19-00 16:13:00* Test Item Value Reference Range Interpretation Comments Urine Cocaine Screen (test code = 3398-5) NEGATIVE NEGATIVE [facility]villeUrine Cannabinoids Wzjkos3276-36-64 16:13:00* Test Item Value Reference Range Interpretation Comments Urine Cannabinoids Screen (test code = 26454-0) POSITIVE NEGATI VE H THESE RESULTS ARE FOR MEDICAL TREATMENT ONLYTHIS REPORT CONTAINS UNCONFIR MED SCREENING RESULTS*POSITIVE RESULTS WILL BE CONFIRMED BY REFERENCE LAB UPON R EQUEST CUT-OFFDRUG CLASS CONCENTRATION ng/mLAmphetamines 1000Methamphetamines 1000Cocaine 300Opiate 300Phencyc lidine 25Cannabinoid 50Barbiturates 300Benzodiazepine 300Methadone 300 This test p rovides only a screen. Positive results should be repeated by a confirmatory jourdan t.[facility]villeUrine Methadone Njwhnl4296-92-20 16:13:00* Test Item Value Reference Range Interpretation Comments Urine Methadone Screen (test code = 09142-6) NEGATIVE NEGATIVE THESE RESULTS ARE FOR MEDICAL TREATMENT ONLYTHIS REPORT CONTAINS UNCONFIR MED SCREENING RESULTS*POSITIVE RESULTS WILL BE CONFIRMED BY REFERENCE LAB UPON R EQUEST CUT-OFFDRUG CLASS CONCENTRATION ng/mLAmphetamines 1000Methamphetamines 1000Cocaine Metabolite 300Opiate 300Phencyc lidine 25Cannabinoid 50Barbiturates 300Benzodiazepine 300Methadone 300[facility] CenterUrine Opiates Tyyguq7435-16-90 16:13:00* Test Item Value Reference Range Interpretation Comments Urine Opiates Screen (test code = 41208-9) POSITIVE NEGATIVE H ALL TESTS PERFORMED MANUALLY ON [employer] TOX/SEE TEST This test provides only a sc reen. Positive results should be repeated by a confirmatory test.[facility]ville[facility] Barbiturates Vhzaua5724-53-60 16:13:00* Test Item Value Reference Range Interpretation Comments Urine Barbiturates Screen (test code = 301774718) NEGATIVE NEGA TIVE [facility]ville[facility] Phencyclidine Hlnyml6550-37-71 16:13:00* Test Item Value Reference Range Interpretation Comments Urine Phencyclidine Screen (test code = 93813-7) NEGATIVE NEGAT ANGY [facility]ville[facility] Amphetamines Qqtruh4515-62-35 16:13:00* Test Item Value Reference Range Interpretation Comments Urine Amphetamines Screen (test code = 55265-3) NEGATIVE NEGATI VE [facility]ville[facility] Methamphetamines Wtgwby5736-62-70 16:13:00* Test Item Value Reference Range Interpretation Comments Urine Methamphetamines Screen (test code = Urine Metha mphetamines Screen) NEGATIVE NEGATIVE [facility]ville[facility] Benzodiazepines Rxundm2124-88-93 16:13:00* Test Item Value Reference Range Interpretation Comments Urine Benzodiazepines Screen (test code = 83681-9) NEGATIVE NEG ATIVE [facility]ville[facility] Cocaine Zcvwye0188-52-55 16:13:00* Test Item Value Reference Range Interpretation Comments Urine Cocaine Screen (test code = 3398-5) NEGATIVE NEGATIVE [facility]ville[facility] Cannabinoids Vnecda4219-83-53 16:13:00* Test Item Value Reference Range Interpretation Comments Urine Cannabinoids Screen (test code = 59942-9) POSITIVE NEGATI VE H THESE RESULTS ARE FOR MEDICAL TREATMENT ONLYTHIS REPORT CONTAINS UNCONFIR MED SCREENING RESULTS*POSITIVE RESULTS WILL BE CONFIRMED BY REFERENCE LAB UPON R EQUEST CUT-OFFDRUG CLASS CONCENTRATION ng/mLAmphetamines 1000Methamphetamines 1000Cocaine 300Opiate 300Phencyc lidine 25Cannabinoid 50Barbiturates 300Benzodiazepine 300Methadone 300 This test p rovides only a screen. Positive results should be repeated by a confirmatory jourdan t.[facility]ville[facility] Methadone Ywfkke8346-42-56 16:13:00* Test Item Value Reference Range Interpretation Comments Urine Methadone Screen (test code = 65791-0) NEGATIVE NEGATIVE THESE RESULTS ARE FOR MEDICAL TREATMENT ONLYTHIS REPORT CONTAINS UNCONFIR MED SCREENING RESULTS*POSITIVE RESULTS WILL BE CONFIRMED BY REFERENCE LAB UPON R EQUEST CUT-OFFDRUG CLASS CONCENTRATION ng/mLAmphetamines 1000Methamphetamines 1000Cocaine Metabolite 300Opiate 300Phencyc lidine 25Cannabinoid 50Barbiturates 300Benzodiazepine 300Methadone 300[facility] Mwqte2927-73-69 16:12:00* Test Item Value Reference Range Interpretation Comments Urine Color (test code = 5778-6) YELLOW YELLOW [facility]ville[facility] Depxomt4723-28-52 16:12:00* Test Item Value Reference Range Interpretation Comments Urine Clarity (test code = 59742-2) SL CLOUDY CLEAR H [facility]villeU[facility] Specific Jkuffow2005-61-91 16:12:00 * Test Item Value Reference Range Interpretation Comments Urine Specific [place] (test code = 5811-5) 1.025 1.010-1.02 5 [facility]ville[facility] aY2866-73-57 16:12:00* Test Item Value Reference Range Interpretation Comments Urine pH (test code = 63235-2) 6 5-7 [facility] Leukocyte Lquenqut8080-38-05 16:12:00* Test Item Value Reference Range Interpretation Comments Urine Leukocyte Esterase (test code = 73892-6) NEGATIVE NEGATIV E [facility] Hydwrcs8950-06-46 16:12:00* Test Item Value Reference Range Interpretation Comments Urine Nitrite (test code = 14308-3) NEGATIVE NEGATIVE [facility] Aaxlxyp6139-38-78 16:12:00* Test Item Value Reference Range Interpretation Comments Urine Protein (test code = 32030-9) TRACE NEGATIVE H [facility] Glucose (UA)2019-03-13 16:12:00* Test Item Value Reference Range Interpretation Comments Urine Glucose (UA) (test code = 07370-4) NEGATIVE NEGATIVE [facility] Vprxjiz9391-18-00 16:12:00* Test Item Value Reference Range Interpretation Comments Urine Ketones (test code = 26473-6) TRACE NEGATIVE H [facility] Umooxveincga6459-28-71 16:12:00* Test Item Value Reference Range Interpretation Comments Urine Urobilinogen (test code = 43941-1) 1 0.2-1 [facility] Fzvfmczjt7503-12-96 16:12:00* Test Item Value Reference Range Interpretation Comments Urine Bilirubin (test code = 1977-8) SMALL NEGATIVE [facility] Kcnuu4676-58-61 16:12:00* Test Item Value Reference Range Interpretation Comments Urine Blood (test code = 03119-5) 1+ NEGATIVE [facility] Ulups2908-18-78 16:12:00* Test Item Value Reference Range Interpretation Comments Urine Color (test code = 5778-6) YELLOW YELLOW [facility]ville[facility] Jwtwptg3515-61-96 16:12:00* Test Item Value Reference Range Interpretation Comments Urine Clarity (test code = 04254-4) SL CLOUDY CLEAR H [facility]villeU[facility] Specific Rdpqopv4462-51-17 16:12:00 * Test Item Value Reference Range Interpretation Comments Urine Specific [place] (test code = 5811-5) 1.025 1.010-1.02 5 [facility]ville[facility] aP8472-55-91 16:12:00* Test Item Value Reference Range Interpretation Comments Urine pH (test code = 78459-9) 6 5-7 [facility] Leukocyte Cqbyaarc6363-30-67 16:12:00* Test Item Value Reference Range Interpretation Comments Urine Leukocyte Esterase (test code = 12409-3) NEGATIVE NEGATIV E [facility]ville[facility] Jyrtzjb1849-64-19 16:12:00* Test Item Value Reference Range Interpretation Comments Urine Nitrite (test code = 95444-6) NEGATIVE NEGATIVE [facility]villeU[facility] Rxxtbis2877-87-06 16:12:00* Test Item Value Reference Range Interpretation Comments Urine Protein (test code = 59908-8) TRACE NEGATIVE H [facility] Glucose (UA)2019-03-13 16:12:00* Test Item Value Reference Range Interpretation Comments Urine Glucose (UA) (test code = 32547-2) NEGATIVE NEGATIVE [facility]ville[facility] Qawdxvy5788-33-70 16:12:00* Test Item Value Reference Range Interpretation Comments Urine Ketones (test code = 47928-7) TRACE NEGATIVE H [facility]villeU[facility] Yjamglssycmy9829-35-61 16:12:00* Test Item Value Reference Range Interpretation Comments Urine Urobilinogen (test code = 06288-9) 1 0.2-1 [facility]ville[facility] Shwcyypaq2066-31-95 16:12:00* Test Item Value Reference Range Interpretation Comments Urine Bilirubin (test code = 1977-8) SMALL NEGATIVE [facility] Nwdke7826-64-59 16:12:00* Test Item Value Reference Range Interpretation Comments Urine Blood (test code = 78778-3) 1+ NEGATIVE [facility]villeU[facility] Yvxfk7969-10-94 16:12:00* Test Item Value Reference Range Interpretation Comments Urine Color (test code = 5778-6) YELLOW YELLOW [facility]villeU[facility] Edjkvde7520-12-26 16:12:00* Test Item Value Reference Range Interpretation Comments Urine Clarity (test code = 70357-5) SL CLOUDY CLEAR H [facility]villeU[facility] Specific Uvnsxxt2427-21-01 16:12:00 * Test Item Value Reference Range Interpretation Comments Urine Specific [place] (test code = 5811-5) 1.025 1.010-1.02 5 [facility]villeU[facility] mH4132-89-85 16:12:00* Test Item Value Reference Range Interpretation Comments Urine pH (test code = 50634-7) 6 5-7 [facility]villeU[facility] Leukocyte Fsrsyloi2882-18-49 16:12:00* Test Item Value Reference Range Interpretation Comments Urine Leukocyte Esterase (test code = 24672-1) NEGATIVE NEGATIV E [facility]villeU[facility] Dwfgybq3782-50-33 16:12:00* Test Item Value Reference Range Interpretation Comments Urine Nitrite (test code = 93060-1) NEGATIVE NEGATIVE [facility]villeU[facility] Obifnli0378-67-52 16:12:00* Test Item Value Reference Range Interpretation Comments Urine Protein (test code = 89971-1) TRACE NEGATIVE H [facility] Glucose (UA)2019-03-13 16:12:00* Test Item Value Reference Range Interpretation Comments Urine Glucose (UA) (test code = 39666-4) NEGATIVE NEGATIVE [facility]villeU[facility] Qlsqtch6041-53-92 16:12:00* Test Item Value Reference Range Interpretation Comments Urine Ketones (test code = 35700-0) TRACE NEGATIVE H [facility]villeU[facility] Apsisdwzlppx7713-96-17 16:12:00* Test Item Value Reference Range Interpretation Comments Urine Urobilinogen (test code = 94764-1) 1 0.2-1 [facility]villeU[facility] Nhhvsmcsk6322-74-97 16:12:00* Test Item Value Reference Range Interpretation Comments Urine Bilirubin (test code = 1977-8) SMALL NEGATIVE [facility]villeU[facility] Ancrd2421-42-74 16:12:00* Test Item Value Reference Range Interpretation Comments Urine Blood (test code = 44169-2) 1+ NEGATIVE [facility]villeAcetaminophen Oqqxt4540-23-94 15:04:00* Test Item Value Reference Range Interpretation Comments Acetaminophen Level (test code = 60834-5) < 3 10-30 L [facility]villeEthyl Alcohol Vkicn1868-30-33 15:04:00* Test Item Value Reference Range Interpretation Comments Ethyl Alcohol Level (test code = 5643-2) < 10.0 0.0-10.0 [facility] Djgyi5036-52-01 15:04:00* Test Item Value Reference Range Interpretation Comments Salicylates Level (test code = 4024-6) < 5.0 0-30 [facility]villeAcetaminophen Bdhdr4939-46-01 15:04:00* Test Item Value Reference Range Interpretation Comments Acetaminophen Level (test code = 77883-4) < 3 10-30 L [facility]villeEthyl Alcohol Rxtrk7934-75-37 15:04:00* Test Item Value Reference Range Interpretation Comments Ethyl Alcohol Level (test code = 5643-2) < 10.0 0.0-10.0 [facility] Fhihv3415-20-92 15:04:00* Test Item Value Reference Range Interpretation Comments Salicylates Level (test code = 4024-6) < 5.0 0-30 [facility]villeAcetaminophen Kddtr8475-52-57 15:04:00* Test Item Value Reference Range Interpretation Comments Acetaminophen Level (test code = 95604-4) < 3 10-30 L [facility]villeEthyl Alcohol Qoqtb0776-10-48 15:04:00* Test Item Value Reference Range Interpretation Comments Ethyl Alcohol Level (test code = 5643-2) < 10.0 0.0-10.0 [facility] Hlqss9918-61-71 15:04:00* Test Item Value Reference Range Interpretation Comments Salicylates Level (test code = 4024-6) < 5.0 0-30 [facility]villeAcetaminophen Cbsxf2431-11-10 15:04:00* Test Item Value Reference Range Interpretation Comments Acetaminophen Level (test code = 37311-5) < 3 10-30 L [facility]villeEthyl Alcohol Vocdn9111-54-70 15:04:00* Test Item Value Reference Range Interpretation Comments Ethyl Alcohol Level (test code = 5643-2) < 10.0 0.0-10.0 [facility] Prici5068-04-54 15:04:00* Test Item Value Reference Range Interpretation Comments Salicylates Level (test code = 4024-6) < 5.0 0-30 [facility]villeCHEST SINGLE ([facility]ABLE)2019-03-13 14:46:00 [place] [address] Patient Name: QUYEN KIM MR #: [id number] : 1980 Age/Sex: 38/M Req #: [id number] Adm Physician: Ordered by: MARISOL ALBERT, PAULINE ALBERT Report #: [id number] Location: ER Room/Bed: Procedure: [id number] D X/CHEST SINGLE (PORTABLE) Exam Date: 03/13/19 [...] 2:46 PM Dictated By: DERIAN SOLORIO MD 2373 Sp[address] scribed By: JEANNE on 03/13/19 8046 COPY TO: PAULINE DAMON Sodium Ylxln5540-15-42 14:43:00* Test Item Value Reference Range Interpretation Comments Sodium Level (test code = 2951-2) 136 136-145 [facility]villePotassium Qocqg3262-75-62 14:43:00* Test Item Value Reference Range Interpretation Comments Potassium Level (test code = 2823-3) 3.6 3.5-5.1 [facility]villeChloride Osakj5220-94-40 14:43:00* Test Item Value Reference Range Interpretation Comments Chloride Level (test code = 2075-0) 103 98-107 [facility]villeCarbon Dioxide Awepz8104-69-46 14:43:00* Test Item Value Reference Range Interpretation Comments Carbon Dioxide Level (test code = 8-9) 23 22-29 [facility]villeAnion Cjw0676-75-84 14:43:00* Test Item Value Reference Range Interpretation Comments Anion Gap (test code = 55790-8) 13.6 8-16 [facility]villeBlood Urea Luorhjli9381-15-98 14:43:00* Test Item Value Reference Range Interpretation Comments Blood Urea Nitrogen (test code = 3094-0) 10 7-26 [facility]villeCreatinine2019-11-11 14:43:00* Test Item Value Reference Range Interpretation Comments Creatinine (test code = 2160-0) 1.48 0.72-1.25 H [facility]villeBUN/Creatinine Bqgij3790-54-55 14:43:00* Test Item Value Reference Range Interpretation Comments BUN/Creatinine Ratio (test code = 3097-3) 7 6-25 [facility] BrownsvilleEstimat Glomerular Filtration Rate 2019-03-13 14:43:00* Test Item Value Reference Range Interpretation Comments Estimat Glomerular Filtration Rate (test code = 137729894) > 60 >60 Ranges were taken from the National Kidney Disease Education Program and the [employer] literature.Reference ranges:60 or greater: Lusqlc44-14 ( for 3 consecutive months): Chronic kidney disease 15 or less: Kidney failureVal[facility] BrownsvilleGlucose Dodse3221-24-87 14:43:00* Test Item Value Reference Range Interpretation Comments Glucose Level (test code = FIP7311) 84 74-118 [facility]villeCalcium Wwwsw4632-85-43 14:43:00* Test Item Value Reference Range Interpretation Comments Calcium Level (test code = 30259-4) 9.5 8.4-10.2 [facility]villeMagnesium Eaatm8238-81-56 14:43:00* Test Item Value Reference Range Interpretation Comments Magnesium Level (test code = 98445-1) 1.7 1.3-2.1 [facility]villeTotal Nctpeanzg5763-70-37 14:43:00* Test Item Value Reference Range Interpretation Comments Total Bilirubin (test code = 1975-2) 0.4 0.2-1.2 [facility] BrownsvilleAspartate Amino Transf (AST/SGOT) 2019-03-13 14:43:00* Test Item Value Reference Range Interpretation Comments Aspartate Amino Transf (AST/SGOT) (test code = Aspartate Amino Transf (AST/SGOT)) 26 5-34 [facility]villeAlanine Aminotransferase (ALT/SGPT) 2019-03-13 14:43:00* Test Item Value Reference Range Interpretation Comments Alanine Aminotransferase (ALT/SGPT) (test code = 1742-6) 31 0-55 [facility] BrownsvilleTotal Sayrpjr1000-22-62 14:43:00* Test Item Value Reference Range Interpretation Comments Total Protein (test code = 2885-2) 7.7 6.5-8.1 [facility] BrownsvilleAlbumin2019-11-11 14:43:00* Test Item Value Reference Range Interpretation Comments Albumin (test code = 1751-7) 3.8 3.5-5.0 [facility]villeGlobulin2019-11-11 14:43:00* Test Item Value Reference Range Interpretation Comments Globulin (test code = 15051-4) 3.9 2.3-3.5 H [facility] BrownsvilleAlbumin/Globulin Wtdyg6979-32-43 14:43:00 * Test Item Value Reference Range Interpretation Comments Albumin/Globulin Ratio (test code = 1759-0) 1.0 0.8-2.0 [facility]villeAlkaline Soeexyauqox4423-94-21 14:43:00* Test Item Value Reference Range Interpretation Comments Alkaline Phosphatase (test code = 6768-6) 75 40-150 [facility] BrownsvilleLipase2019-11-11 14:43:00* Test Item Value Reference Range Interpretation Comments Lipase (test code = 3040-3) 12 8-78 [facility]villeMagnesium Otcxq5692-65-15 14:43:00* Test Item Value Reference Range Interpretation Comments Magnesium Level (test code = 98457-4) 1.7 1.3-2.1 [facility]villeMagnesium Iojws4968-61-07 14:43:00* Test Item Value Reference Range Interpretation Comments Magnesium Level (test code = 57593-7) 1.7 1.3-2.1 [facility]villeWhite Blood Unkdt0118-29-99 14:22:00* Test Item Value Reference Range Interpretation Comments White Blood Count (test code = 6690-2) 3.05 4.8-10.8 L [facility] BrownsvilleRed Blood Oqron0347-90-51 14:22:00* Test Item Value Reference Range Interpretation Comments Red Blood Count (test code = 789-8) 3.51 4.3-5.7 L [facility]villeHemoglobin2019-11-11 14:22:00* Test Item Value Reference Range Interpretation Comments Hemoglobin (test code = 01680-1) 11.5 14.0-18.0 L [facility]villeHematocrit2019-11-11 14:22:00* Test Item Value Reference Range Interpretation Comments Hematocrit (test code = 4544-3) 33.3 38.2-49.6 L [facility] BrownsvilleMean Corpuscular Njmwrp9707-37-50 14:22:00* Test Item Value Reference Range Interpretation Comments Mean Corpuscular Volume (test code = 787-2) 94.9 81-99 [facility]villeMean Corpuscular Xaiakakxls2335-49-95 14:22:00* Test Item Value Reference Range Interpretation Comments Mean Corpuscular Hemoglobin (test code = 785-6) 32.8 28-32 H [facility] BrownsvilleMean Corpuscular Hemoglobin Concent 2019-03-13 14:22:00* Test Item Value Reference Range Interpretation Comments Mean Corpuscular Hemoglobin Concent (test code = 786-4) 34.5 31-35 [facility]villeRed Cell Distribution Slfyo9256-52-99 14:22:00* Test Item Value Reference Range Interpretation Comments Red Cell Distribution Width (test code = 95221-0) 11.7 11.7 -14.4 [facility]villePlatelet Gqbzn5241-55-74 14:22:00* Test Item Value Reference Range Interpretation Comments Platelet Count (test code = 777-3) 189 140-360 [facility]villeNeutrophils (%) (Auto)2019-03-13 14:22:00 * Test Item Value Reference Range Interpretation Comments Neutrophils (%) (Auto) (test code = 66335-0) 53.1 38.7-80.0 [facility]villeLymphocytes (%) (Auto)2019-03-13 14:22:00 * Test Item Value Reference Range Interpretation Comments Lymphocytes (%) (Auto) (test code = 736-9) 33.1 18.0-39.1 [facility]villeMonocytes (%) (Auto)2019-03-13 14:22:00* Test Item Value Reference Range Interpretation Comments Monocytes (%) (Auto) (test code = 5905-5) 10.8 4.4-11.3 [facility]villeEosinophils (%) (Auto)2019-03-13 14:22:00 * Test Item Value Reference Range Interpretation Comments Eosinophils (%) (Auto) (test code = 713-8) 2.0 0.0-6.0 [facility]villeBasophils (%) (Auto)2019-03-13 14:22:00* Test Item Value Reference Range Interpretation Comments Basophils (%) (Auto) (test code = 706-2) 0.3 0.0-1.0 [facility]villeIM GRANULOCYTES %2019-03-13 14:22:00* Test Item Value Reference Range Interpretation Comments IM GRANULOCYTES % (test code = IM GRANULOCYTES %) 0.7 0.0- 1.0 [facility]villeNeutrophils # (Auto)2019-03-13 14:22:00* Test Item Value Reference Range Interpretation Comments Neutrophils # (Auto) (test code = 751-8) 1.6 2.1-6.9 L [facility]villeLymphocytes # (Auto)2019-03-13 14:22:00* Test Item Value Reference Range Interpretation Comments Lymphocytes # (Auto) (test code = 41077-1) 1.0 1.0-3.2 [facility]villeMonocytes # (Auto)2019-03-13 14:22:00* Test Item Value Reference Range Interpretation Comments Monocytes # (Auto) (test code = 742-7) 0.3 0.2-0.8 [facility]villeEosinophils # (Auto)2019-03-13 14:22:00* Test Item Value Reference Range Interpretation Comments Eosinophils # (Auto) (test code = 711-2) 0.1 0.0-0.4 [facility]villeBasophils # (Auto)2019-03-13 14:22:00* Test Item Value Reference Range Interpretation Comments Basophils # (Auto) (test code = 704-7) 0.0 0.0-0.1 [facility] BrownsvilleAbsolute Immature Granulocyte (auto 2019-03-13 14:22:00* Test Item Value Reference Range Interpretation Comments Absolute Immature Granulocyte (auto (jourdan t code = Absolute Immature Granulocyte (auto) 0.02 0-0.1 [facility] blood eosinophil count as percentage of total gboilyrazg9926-20-14 12:55:00* Test Item Value Reference Range Interpretation Comments Eosinophils % (Manual) (test code = 714-6) 3 0-7 [facility] blood metamyelocytes/100 eqectfpjlu0645-95-09 12:55:00* Test Item Value Reference Range Interpretation Comments Metamyelocytes % (test code = 740-1) 1 0-0 [facility] anisocytosis detection by light ymcuapveqh8884-97-61 12:55:00* Test Item Value Reference Range Interpretation Comments Anisocytosis (test code = 702-1) SLIGHT [facility] [place] bodies detection by light gtslykomwb6938-59-47 12:55:00* Test Item Value Reference Range Interpretation Comments [place] Bodies (test code = 7793-3) FEW [facility] plasma acetaminophen measurement by screening method (mass/volume)2019-03-13 12:55:00* Test Item Value Reference Range Interpretation Comments Acetaminophen Level (test code = 67856-5) < 3 10-30 [facility]oerum or plasma ethanol measurement (mass/volume)2019-03-13 12:55:00* Test Item Value Reference Range Interpretation Comments Ethyl Alcohol Level (test code = 5643-2) < 10.0 0.0-10.0 [facility]oerum or plasma salicylates measurement (mass/volume)2019-03-13 12:55:00* Test Item Value Reference Range Interpretation Comments Salicylates Level (test code = 4024-6) < 5.0 0-30 [facility] blood eosinophil count as percentage of total einwvcviaj8001-31-38 12:55:00* Test Item Value Reference Range Interpretation Comments Eosinophils % (Manual) (test code = 714-6) 3 0-7 [facility] blood metamyelocytes/100 imtgfldklp0222-05-99 12:55:00* Test Item Value Reference Range Interpretation Comments Metamyelocytes % (test code = 740-1) 1 0-0 [facility] anisocytosis detection by light txoxnedpfg8137-29-41 12:55:00* Test Item Value Reference Range Interpretation Comments Anisocytosis (test code = 702-1) SLIGHT [facility] [place] bodies detection by light ajtoktkmyy7898-91-42 12:55:00* Test Item Value Reference Range Interpretation Comments [place] Bodies (test code = 7793-3) FEW [facility] or plasma acetaminophen measurement by screening method (mass/volume)2019-03-13 12:55:00* Test Item Value Reference Range Interpretation Comments Acetaminophen Level (test code = 94453-9) < 3 10-30 [facility]erum or plasma ethanol measurement (mass/volume)2019-03-13 12:55:00* Test Item Value Reference Range Interpretation Comments Ethyl Alcohol Level (test code = 5643-2) < 10.0 0.0-10.0 [facility]um or plasma salicylates measurement (mass/volume)2019-03-13 12:55:00* Test Item Value Reference Range Interpretation Comments Salicylates Level (test code = 4024-6) < 5.0 0-30 [facility] count as percentage of total nhyjizeuci2761-79-93 12:55:00* Test Item Value Reference Range Interpretation Comments Eosinophils % (Manual) (test code = 714-6) 3 0-7 [facility] blood metamyelocytes/100 [id number] 12:55:00* Test Item Value Reference Range Interpretation Comments Metamyelocytes % (test code = 740-1) 1 0-0 [facility] anisocytosis detection by light avsgrsxmfw6923-99-76 12:55:00* Test Item Value Reference Range Interpretation Comments Anisocytosis (test code = 702-1) SLIGHT [facility] [place] bodies detection by light sqmppddbkv4940-11-47 12:55:00* Test Item Value Reference Range Interpretation Comments [place] Bodies (test code = 7793-3) [facility]W [facility] acetaminophen measurement by screening method (mass/volume)2019-03-13 12:55:00* Test Item Value Reference Range Interpretation Comments Acetaminophen Level (test code = 95418-5) < 3 10-30 [facility] ethanol measurement (mass/volume)2019-03-13 12:55:00* Test Item Value Reference Range Interpretation Comments Ethyl Alcohol Level (test code = 5643-2) < 10.0 0.0-10.0 [facility] salicylates measurement (mass/volume)2019-03-13 12:55:00* Test Item Value Reference Range Interpretation Comments Salicylates Level (test code = 4024-6) < 5.0 0-30 [facility] eosinophil count as percentage of total hitxtrgvbd6213-50-85 12:55:00* Test Item Value Reference Range Interpretation Comments Eosinophils % (Manual) (test code = 714-6) 3 0-7 [facility] metamyelocytes/100 xjdpzhlydl5696-50-42 12:55:00* Test Item Value Reference Range Interpretation Comments Metamyelocytes % (test code = 740-1) 1 0-0 [facility] anisocytosis detection by light lwjazjlvrk6208-96-09 12:55:00* Test Item Value Reference Range Interpretation Comments Anisocytosis (test code = 702-1) SLIGHT [facility] [place] bodies detection by light mdpfiwhuqs2040-54-83 12:55:00* Test Item Value Reference Range Interpretation Comments [place] Bodies (test code = 7793-3) [facility]W [facility] acetaminophen measurement by screening method (mass/volume)2019-03-13 12:55:00* Test Item Value Reference Range Interpretation Comments Acetaminophen Level (test code = 21631-9) < 3 10-30 [facility] ethanol measurement (mass/volume)2019-03-13 12:55:00* Test Item Value Reference Range Interpretation Comments Ethyl Alcohol Level (test code = 5643-2) < 10.0 0.0-10.0 [facility] plasma salicylates measurement (mass/volume)2019-03-13 12:55:00* Test Item Value Reference Range Interpretation Comments Salicylates Level (test code = 4024-6) < 5.0 0-30 [facility] crystals detection in urine sediment by light ccuimafyag7343-83-16 11:35:00* Test Item Value Reference Range Interpretation Comments Urine Calcium Carbonate Crystals (test code = 5773-7) MANY NONE [facility] crystals detection in urine sediment by light sfhgpxusrc6769-68-05 11:35:00* Test Item Value Reference Range Interpretation Comments Urine Calcium Carbonate Crystals (test code = 5773-7) MANY NONE [facility] crystals detection in urine sediment by light qqsmpailaw0714-59-95 11:35:00* Test Item Value Reference Range Interpretation Comments Urine Calcium Carbonate Crystals (test code = 5773-7) MANY NONE [facility] carbonate crystals detection in urine sediment by light gbhlmauoaa6713-82-46 11:35:00* Test Item Value Reference Range Interpretation Comments Urine Calcium Carbonate Crystals (test code = 5773-7) MANY [facility] [place], [place]- DUP AB/PEL/SC [id number] 11:31:00 Name: QUYEN KIM [facility] : 1980 Age/S: 38 / M [address] [facility] Unit #: [id number] Loc: [place] [address] Phys: Freddie Lira MD Acct: [id number] Di s Date: Status: REG ER PHONE #: Exam Date: 02/28/2019 1110 FAX #: Reason: scrotal pain EXAMS: CPT CODE: [id number] DUP AB/PEL/SC COMP 74904 REASON FOR EXAM: testicul ar pain, vomiting [...] PAGE 1 Signed Report (CONTINUED) Name: SAMMIEQUYEN Yadira [facility] : 1980 Age/S: 38 / M [address] [facility] Unit #: [id number] Loc: [place] [address] Phys: Kyra Lira MD Acct: [id number] Dis Date: atus: ER PHONE #: [phone] Exam Theodore e: 02/28/2019 1110 FAX #: [phone] Reason: scrotal pain EXAMS: CPT CODE: [id number] DUP AB/PEL/SC COMP 94064 <Continued> personal/family history of germ cell tumour maldescent orchidopexy testicular atrophy No evidence of torsion or orchitis. at 1131 Reported and signed by: Alli Felipe MD CC: Kyra Lira MD Technologist: ARNULFO COATS RT(R),JESUSMS Trnscb Date/Time: 02/28/2019 (1879) [email or web address].RR31 PAGE 2 Signed Report - US SCROTUM AND [id number] 11:31:00 Name: QUYEN KIM [facility] : 1980 Age/S: 38 / M [address] Unit #: [id number] Loc: [place] [address] Phys: Kyra Lira MD Acct: [id number] Dis Date: Status: REG ER PHONE #: [phone] Exam Date: 02/28/2019 1110 FAX #: [phone] Reason: testicular pain, vomiting EXAMS: CPT CODE: [id number] US SCROTUM AND CNTS 32861 REASON FOR EXAM: testicular pain, vomiting EXAM [...] 1 Signed Report (CONTINUED) Name: QUYEN KIM [facility] : 1980 Age/S: 38 / M [address] Unit #: [id number] Loc: [place] [address] Phys: Kyra Lira MD Acct: [id number] Dis Date: Status: REG ER PHONE #: [phone] Exam Date: 02/28/2019 1110 FAX #: [phone] Reason: testicular pain, vomiting EXAMS: CPT CODE: [id number] US SCROTUM AND CNTS 31758 <Continued> personal/family history of germ cell tumour maldescent orchidopexy testicular atrophy No evidence of torsion or orchitis. at 1131 Reported and signed by: Alli Felipe MD CC: Kyra Lira MD Technologist: ARNULFO COATS RT(R),RDMS Trntxb Date/Time: 02/28/2019 (1131) [email or web address] Orig Print D/T: S: 02/28/2019 (0247) Probe: PAGE 2 Signed Report DRUGS OF ABUSE SCREEN [id number] 10:46:00* Test Item Value Reference Range Interpretation [...] NEGATIVE <300 ng/mL ADD ON AT 1002URINALYSIS [id number] 10:32:00* Test Item Value Reference Range Interpretation [...] Urine Source? Clean CatchDRUGS OF ABUSE SCREEN [id number] 10:32:00* Test Item Value Reference Range Interpretation [...] = [place]) <300 ng/mL ADD ON AT [address] [place] [address] W/O [id number] 10:13:00* Test Item Value Reference Range Interpretation [...] MPV) 11.4 fL 6.7-11.0 H BASIC METABOLIC [id number] 10:10:00* Test Item Value Reference Range Interpretation [...] CA) 9.8 mg/dL 8.5-10.1 N HEPATIC FUNCTION [id number] 10:10:00* Test Item Value Reference Range Interpretation [...] reference range due to change in reagent. [id number] 10:10:00* Test Item Value Reference Range Interpretation Comments LIPASE (test code = LIP) 123 U/L 73.0-393.0 N [id number] 10:10:00* Test Item Value Reference Range Interpretation Comments TROPONIN-I (test code = TROPI) <0.015 ng/mL 0-0.045 N BASIC METABOLIC [id number] 09:58:00* Test Item Value Reference Range Interpretation [...] code = CA) mg/dL 8.5-10.1 HEPATIC FUNCTION [id number] 09:58:00* Test Item Value Reference Range Interpretation [...] TOTAL (test code = ALKP) IUnit/L 45-117 [id number] 09:58:00* Test Item Value Reference Range Interpretation Comments LIPASE (test code = LIP) U/L 73.0-393.0 [id number] 09:58:00* Test Item Value Reference Range Interpretation Comments TROPONIN-I (test code = TROPI) ng/mL 0-0.045 - CT ABD PELVIS W/O [id number] 09:34:00 Name: QUYEN KIM [facility] : 1980 Age/S: 38 / M [address] [facility] Unit #: [id number] Loc: [place] [address] Phys: Kyra Lira MD Acct: [id number] Dis Date: Status: REG ER PHONE #: [phone] Exam Date: 02/28/2019904 FAX #: [phone] Reason: LLQ ttp, vomiting EXAMS: CPT CODE: [id number] CT ABD PELVIS W/O CONT 95511 REASON FOR EXAM: LLQ ttp, vomiting EXAM [...] Signed Re port (CONTINUED) Name: QUYEN KIM [facility] : 1980 Age/S: 38 / M [address] Unit #: [id number] Loc: [place] [address] Phys: Kyra Lira MD Acct: [id number] Dis Date: Status: REG ER PHONE #: [phone] Exam Date: 02/28/2019904 FAX #: [phone] Reason: LLQ ttp, vomiting EXAMS: CPT CODE: [id number] CT ABD PELVIS W/O CONT 32868 <Continued> Abdominal vascular structures: Circumaortic left renal [...] tract in the left lower abdomen. Location: [facility] at 0934 Reported and signed by: Alli Felipe MD CC: Kyra Lira MD Technologist:Radames Chang RT(R),(MR),(CT) CTDI: DLP: Trnscb Date/Time: 02/28/2019 (933) [email or web address] Orig Print D/T: S: 02/28/2019 (0937) PAGE 2 Signed Report - CT ABD PELVIS W/O [id number] 16:32:00 Name: QUYEN KIM [facility] : 1980 Age/S: 38 / M [address] [facility] Unit #: [id number] Loc: [place] [address] Phys: Trudy Benjamin NP Acct: [id number] Dis Date: Status: REG ER PHONE #: [phone] Exam Date: 02/24/2019 1430 FAX #: [phone] Reason: abdominal pain EXAMS: CPT CODE: [id number] CT ABD PELVIS W/O CONT 06821 REASON FOR EXAM: abdominal pain EXAM ORDER DATE: 02/24/2019 2:18 PM Ordering MBradley: Trudy Benjamin NP PROCEDURE: - CT ABD [...] 1 Signed Report (CONTINUED) Name: QUYEN KIM [facility] : 1980 Age/S: 38 / M [address] [facility] Unit #: [id number] Loc: [place] [address] Phys: Trudy Benjamin NP Acct: [id number] Dis Date: Status: REG ER PHONE #: [phone] Exam Date: 02/24/2019 1430 FAX #: [phone] Reason: abdominal pain EXAMS: CPT CODE: [id number] CT ABD PELVIS W/O CONT 00859 < Continued> grossly normal Peritoneum and retroperitoneum: [...] inguinal canal. Correlate with physical exam. Location: [facility] at 1632 Reported and signed by: Alli Felipe MD CC: Trudy Benjamin SUPERVISOR FACEPIECE LINE; Melyssa Ramirez DO Technologist:Pavel Maciel RT(R) CTDI: DLP: Trnscb Date/Time: 02/24/2019 (058) [email or web address] Orig Print D/T: S: 02/24/2019 (3281) PAGE 2 Signed Report DRUGS OF ABUSE [...] NEGATIVE <300 ng/mL DRUGS OF ABUSE SCREEN [id number] 16:07:00* Test Item Value Reference Range Interpretation [...] code = [place]) NEGATIVE <300 ng/mL URINALYSIS [id number] 15:47:00* Test Item Value Reference Range Interpretation [...] FEW A Urine Source? Clean CatchBASIC METABOLIC [id number] 14:12:00* Test Item Value Reference Range Interpretation [...] CA) 9.9 mg/dL 8.5-10.1 N HEPATIC FUNCTION [id number] 14:12:00* Test Item Value Reference Range Interpretation [...] reference range due to change in reagent. [id number] 14:12:00* Test Item Value Reference Range Interpretation Comments LIPASE (test code = LIP) 80 U/L 73.0-393.0 N BASIC METABOLIC [id number] 14:00:00* Test Item Value Reference Range Interpretation [...] code = CA) mg/dL 8.5-10.1 HEPATIC FUNCTION [id number] 14:00:00* Test Item Value Reference Range Interpretation [...] TOTAL (test code = ALKP) IUnit/L 45-117 [id number] 14:00:00* Test Item Value Reference Range Interpretation Comments LIPASE (test code = LIP) U/L 73.0-393.0 CBC W/O [id number] 13:50:00* Test Item Value Reference Range Interpretation [...] MPV) 10.4 fL 6.7-11.0 N CBC W/O [id number] 13:49:00* Test Item Value Reference Range Interpretation [...]
[2020-01-01] MEDS ORDERED: HALOPERIDOL LACTATE 5 MG/ML VIAL IM ONE (07:45)
[2020-01-01] MEDS ORDERED: DIPHENHYDRAMINE HCL INJ 50 MG/ML VIAL IV ONE (07:45)
[2020-01-01 07:55] LABS: BASOPHILS % 0.5 % (0.0-1.0); EOSINOPHILS % 0.5 % (0.0-6.0); HEMATOCRIT 41.3 % (38.2-49.6); HEMOGLOBIN 14.3 g/dL (14.0-18.0); LYMPHOCYTES # (AUTO) 1.7 (1.0-3.2); LYMPHOCYTES % 28.2 % (18.0-39.1); MEAN CORPUSCULAR HEMOGLOBIN 32.6 pg (28-32); MEAN CORPUSCULAR HGB CONC 34.6 g/dL (31-35); MEAN CORPUSCULAR VOLUME 94.1 fL (81-99); MONOCYTES # (AUTO) 0.6 (0.2-0.8); MONOCYTES % 9.2 % (4.4-11.3); NEUTROPHILS # (AUTO) 3.7 (2.1-6.9); NEUTROPHILS % 61.4 % (38.7-80.0); PLATELET COUNT 246 x10e3/uL (140-360); RED BLOOD COUNT 4.39 x10e6/uL (4.3-5.7); RED CELL DISTRIBUTION WIDTH 11.7 % (11.7-14.4)
[2020-01-01 08:12] LABS: INR 0.97; PROTHROMBIN TIME 13.4 seconds (11.9-14.5)
[2020-01-01 08:13] LABS: PARTIAL THROMBOPLASTIN TIME 25.8 seconds (23.8-35.5)
[2020-01-01 09:21] LABS: ALBUMIN/GLOBULIN RATIO 1.3 (0.8-2.0); ANION GAP 19.3 mmol/L (8-16); CALCIUM 10.3 mg/dL (8.4-10.2); CREATININE, SERUM 1.61 mg/dL (0.72-1.25); POTASSIUM 3.3 mmol/L (3.5-5.1)
--- NOTE | 2020-01-01 09:28 | Diagnostic Imaging Report ---
EXAMINATION: CT of the abdomen and pelvis with contrast. TECHNIQUE: Spiral CT images of the abdomen and pelvis were performed from the lung bases to the lesser trochanters after the intravenous administration of 100 cc of Isovue 300. Coronal and sagittal reformatted images were obtained. COMPARISON: Multiple CT abdomen and pelvic examinations, most recently 12/14/2019 CLINICAL HISTORY:Nausea, vomiting, abdominal pain DISCUSSION: ABDOMEN/PELVIS: LOWER THORAX:Air-filled cyst in right lung base abutting the hemidiaphragm, unchanged. Lung bases are otherwise unremarkable. HEPATOBILIARY: 3 Hyperdense foci in the left hepatic lobe are faintly visualized, though were seen to better advantage on comparison study secondary to timing of scan acquisition. No new focal hepatic lesion. No intrahepatic biliary ductal dilatation. SPLEEN: No splenomegaly or focal splenic lesion. PANCREAS: No focal masses or ductal dilatation. ADRENALS: No adrenal nodules. KIDNEYS/URETERS: Single right-sided and at least 4 left-sided renal cysts are unchanged (all have average internal attenuation less than 20 Hounsfield units). Unchanged nonobstructing 6 mm left lower pole renal calculus. No right renal calculi. No hydronephrosis or perinephric inflammation. PELVIC ORGANS/BLADDER: Urinary bladder is incompletely distended but otherwise unremarkable. Faint central prostatic calcifications. Pelvic phleboliths. PERITONEUM/RETROPERITONEUM: No ascites or pneumoperitoneum. LYMPH NODES: No pelvic sidewall, retroperitoneal, or mesenteric lymphadenopathy. VESSELS: Abdominal aorta, major branch vessels, and iliac arterial systems are patent. Portal vein, splenic vein, and central superior mesenteric vein are patent. Incidental note of a circumaortic left renal vein. GI TRACT: The large bowel shows no distention or wall thickening. Appendix is not definitively identified. No right lower quadrant inflammation. No small bowel dilatation to suggest obstruction. BONES AND SOFT TISSUE: No osseous destructive lesions. Degenerative disc changes and facet arthropathy at L5-S1. Bone island in the left iliac wing. No focal soft tissue abnormalities. IMPRESSION: No acute intra-abdominal or pelvic CT abnormalities. Stable examination relative to 12/14/2019. 6 mm nonobstructing left lower pole renal calculus. Signed by: Dr. Juan Luis Singleton M.D. on 01/01/2020 9:25 AM
[2020-01-01 09:31] LABS: CREATINE KINASE MB 0.5 ng/mL (0-5.0)
[2020-01-01] MEDS ORDERED: SODIUM CHLORIDE 0.9% 50ML 50 ML ONE (10:05)
[2020-01-01] MEDS ORDERED: IOPAMIDOL 370 MG/ML 200 ML INFUS..BTL INJ ONE (10:05)
--- NOTE | 2020-01-01 14:11 | Emergency Department Note ---
History of Present Illnes History of Present Illness Chief Complaint: Abdominal Complaints History of Present Illness This is a 39 year old male x 3 WEEKS C/O OF ABDOMINAL PAIN, N/V. DESCRIBED "KNOTS". UNABLE TO KEEP FOOD DOWN. PATIENT HAS BEEN SEEN IN E.. 3-4 TIMES. 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 Any updates have been documented here. 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 Social History Smoking Cessation: Current every day smoker Counseling Performed: No Alcohol Use: Social Any Illegal Drug Use: Yes (marijuana) TB Exposure/Symptoms: No Physically hurt or threatened: No Family History Family history of heart diseas: No Other Last Tetanus: UTD Any Pre-Existing Lines (PICC,: No Review of Systems Review of Systems Constitutional: Reports no symptoms EENTM: Reports no symptoms Cardiovascular: Reports no symptoms Respiratory: Reports no symptoms Gastrointestinal: Reports as per HPI Genitourinary: Reports no symptoms Musculoskeletal: Reports no symptoms Integumentary: Reports no symptoms Neurological: Reports no symptoms Psychological: Reports no symptoms Endocrine: Reports no symptoms Hematological/Lymphatic: Reports no symptoms Physical Exam Related Data Allergies: Coded Allergies: No Known Drug Allergies (Verified Allergy, Unknown, 01/01/20) Triage Vital Signs Vital Signs Date Time Temp Pulse Resp B/P (MAP) Pulse Ox O2 Delivery O2 Flow Rate FiO2 01/01/20 07:33 98.4 84 18 162/114 100 Room Air Vital signs reviewed: Yes Physical Exam CONSTITUTIONAL Constitutional: Present well-developed, Present well-nourished HENT HENT: Present normocephalic, Present atraumatic, Present oropharynx clear/m oist, Present nose normal HENT L/R: Present left ext ear normal, Present right ext ear normal EYES Eyes: Reports PERRL, Reports conjunctivae normal NECK Neck: Present ROM normal PULMONARY Pulmonary: Present effort normal, Present breath sounds normal CARDIOVASCULAR Cardiovascular: Present regular rhythm, Present heart sounds normal, Present capillary refill normal, Present normal rate GASTROINTESTINAL Abdominal: Present soft, Present tender (MILD DIFFUSE); Absent guarding, Absent rebound GENITOURINARY Genitourinary: Present exam deferred SKIN Skin: Present warm, Present dry MUSCULOSKELETAL Musculoskeletal: Present ROM normal NEUROLOGICAL Neurological: Present alert, Present oriented x 3, Present no gross motor or sensory deficits PSYCHOLOGICAL Psychological: Present mood/affect normal, Present judgement normal Results Laboratory Result Diagram: 01/01/20 0742 01/01/20 0742 Laboratory Laboratory Tests Test 01/01/20 07:42 White Blood Count 5.96 x10e3/uL (4.8-10.8) Red Blood Count 4.39 x10e6/uL (4.3-5.7) Hemoglobin 14.3 g/dL (14.0-18.0) Hematocrit 41.3 % (38.2-49.6) Mean Corpuscular Volume 94.1 fL (81-99) Mean Corpuscular Hemoglobin 32.6 pg (28-32) Mean Corpuscular Hemoglobin Concent 34.6 g/dL (31-35) Red Cell Distribution Width 11.7 % (11.7-14.4) Platelet Count 246 x10e3/uL (140-360) Neutrophils (%) (Auto) 61.4 % (38.7-80.0) Lymphocytes (%) (Auto) 28.2 % (18.0-39.1) Monocytes (%) (Auto) 9.2 % (4.4-11.3) Eosinophils (%) (Auto) 0.5 % (0.0-6.0) Basophils (%) (Auto) 0.5 % (0.0-1.0) Neutrophils # (Auto) 3.7 (2.1-6.9) Lymphocytes # (Auto) 1.7 (1.0-3.2) Monocytes # (Auto) 0.6 (0.2-0.8) Eosinophils # (Auto) 0.0 (0.0-0.4) Basophils # (Auto) 0.0 (0.0-0.1) Absolute Immature Granulocyte (auto 0.01 x10e3/uL (0-0.1) Prothrombin Time 13.4 seconds (11.9-14.5) Prothromb Time International Ratio 0.97 Activated Partial Thromboplast Time 25.8 seconds (23.8-35.5) Sodium Level 143 mmol/L (136-145) Potassium Level 3.3 mmol/L (3.5-5.1) Chloride Level 105 mmol/L (98-107) Carbon Dioxide Level 22 mmol/L (22-29) Anion Gap 19.3 mmol/L (8-16) Blood Urea Nitrogen 8 mg/dL (7-26) Creatinine 1.61 mg/dL (0.72-1.25) Estimat Glomerular Filtration Rate 58 ML/MIN (60-) BUN/Creatinine Ratio 5 (6-25) Glucose Level 118 mg/dL (74-118) Calcium Level 10.3 mg/dL (8.4-10.2) Magnesium Level 2.0 MG/DL (1.3-2.1) Total Bilirubin 1.1 mg/dL (0.2-1.2) Aspartate Amino Transf (AST/SGOT) 15 IU/L (5-34) Alanine Aminotransferase (ALT/SGPT) 14 IU/L (0-55) Alkaline Phosphatase 93 IU/L (40-150) Creatine Kinase 52 IU/L (30-200) Creatine Kinase MB 0.50 ng/mL (0-5.0) Troponin I 0.007 ng/mL (0-0.300) Total Protein 8.8 g/dL (6.5-8.1) Albumin 5.0 g/dL (3.5-5.0) Globulin 3.8 g/dL (2.3-3.5) Albumin/Globulin Ratio 1.3 (0.8-2.0) Amylase Level 99 U/L (25-125) Lipase 21 U/L (8-78) Lab results reviewed: Yes Imaging Imaging results reviewed: Yes Assessment & Plan Medical Decision Making MDM CBC, CHEM, RODGER/LIPASE, CARDICS, UA, UDS, CT ABD/PELVIS - EVAL RENAL INSUFF, BOWEL OBSTR, DRUG USE, KIDNEY STONES, NSTEMI Reassessment Reassessment D/W DR Denise HAYS - PT TO BE DS/C, HE WILL SEE IN [facility] Assessment & Plan Final Impression: (1) Nausea & vomiting Depart Disposition: HOME, SELF-CARE Last Vital Signs Date Time Temp Pulse Resp B/P (MAP) Pulse Ox O2 Delivery O2 Flow Rate FiO2 01/01/20 13:06 87 17 139/95 100 01/01/20 07:33 98.4 Room Air Home Meds Active Scripts Haloperidol (HALOPERIDOL) 1 Mg Tablet, 2 MG PO DAILY PRN for NAUSEA MDD 2 mg, #20 TAB Prov:NITIN DUBON MD 12/26/19 Pantoprazole Sodium* (PROTONIX) 40 Mg Tablet., 40 MG PO DAILY, #14 TAB Prov:GEOVANI MONROY DO 12/14/19 Dicyclomine Hcl (BENTYL) 10 Mg/1 Ml Ampul, 20 MG PO QID, #20 VIAL Prov:GEOVANI MONROY DO 12/14/19 Reported Medications Dicyclomine Hcl (BENTYL) 10 Mg/1 Ml Ampul, 20 MG IV QID, VIAL 04/04/19 Metronidazole (FLAGYL) 500 Mg Tablet, 500 MG PO Q6H 04/04/19 Acetaminophen/Codeine* (TYLENOL # 3*) 1 Ea Tab, PO PRN PRN for ABDOMINAL PAIN 04/04/19 Clindamycin Hcl (CLINDAMYCIN HCL) 300 Mg Capsule, 300 MG PO Q6H 04/04/19 Hydrochlorothiazide (HYDROCHLOROTHIAZIDE) 25 Mg Tablet, 12.5 MG PO DAILY, #30 TAB 03/14/19 Discontinued Scripts Ondansetron Hcl* (ZOFRAN*) 4 Mg Tablet, 4 MG SL Q6H PRN for NAUSEA, #14 MG 0 R efills Prov:GEOVANI MONROY DO 12/14/19 Medications in the ED Pantoprazole Sodium 40 mg ONCE STAT IV Last administered on 01/01/20at 07:57; Admin Dose 40 MG; Start 01/01/20 at 07:38; Stop 01/01/20 at 07:45; Status DC Sodium Chloride 1,000 ml @ 0 mls/hr Q0M STAT IV Last administered on 01/01/20at 08:40; Admin Dose 1,000 MLS/HR; Start 8/31/20 at 07:38; Stop 01/01/20 at 07:43; Status DC Haloperidol Lactate 5 mg ONCE ONCE IM Last administered on 01/01/20at 07:57; Admin Dose 5 MG; Start 01/01/20 at 07:45; Stop 01/01/20 at 07:46; Status DC Diphenhydramine HCl 25 mg NOW ONCE IV Last administered on 01/01/20at 07:57; Admin Dose 25 MG; Start 01/01/20 at 07:45; Stop 01/01/20 at 07:46; Status DC Sodium Chloride 1,000 ml @ 0 mls/hr Q0M STAT IV Last administered on 01/01/20at 07:58; Admin Dose 1,000 MLS/HR; Start 01/01/20 at 07:38; Stop 01/01/20 at 07:43; Status DC Sodium Chloride 50 ml @ ud STK-MED ONCE .ROUTE ; Start 01/01/20 at 10:05; Stop 01/01/20 at 11:47; Status DC Iopamidol 74,000 mg STK-MED ONCE INJ ; Start 01/01/20 at 10:05; Stop 01/01/20 at 11:47; Status DC BRNADO MONTGOMERY MD Jan 01, 2020 14:11
== END 2020-01-01 14:34 | disposition home or self-care (01) ==
LOC: ER 07:36
DX: R11.2 Nausea with vomiting, unspecified (principal); R10.9 Unspecified abdominal pain; I10 Essential (primary) hypertension; B20 Human immunodeficiency virus [HIV] disease; F17.210 Nicotine dependence, cigarettes, uncomplicated
CPT/HCPCS: 36415; 74177; 80053; 82150; 82550; 82553; 83690; 83735; 84484; 85025; 85610; 85730; 99284; C9113; J1200; J1630; J7030; Q9967

== ENCOUNTER 2020-01-19 10:15 | Emergency (ER) | payer OTHER ==
[~2020-01-19] VITALS: Ht 200.7 cm; Wt 49.9 kg
[2020-01-19] MEDS ORDERED: ONDANSETRON HCL INJ 2MG/ML 2ML 2 MG/ML VIAL IV STA (10:31)
[2020-01-19] MEDS ORDERED: SODIUM CHLORIDE 0.9% 1000ML 1,000 ML IV STA (10:31)
--- NOTE | 2020-01-19 10:53 | Emergency Department Note ---
History of Present Illnes History of Present Illness Chief Complaint: Abdominal Complaints History of Present Illness This is a 39 year old male arrives the ED with complaints of nausea and vomiting. Patient requesting fluids, pain medicine and nausea medicine. Patient states multiple hospitals that has not gotten any relief of symptoms. Chief Complaint Comment pt c/o nausea and vomiting for months, pt states that he has had this ongoing problem and has been seen multiples times at [facility], pt also has had several radiology studies but no ER has yet to tell him "what is really wrong with him", pt states that he will not leave today without an answer, pt has a history of HIV Historian: Patient Arrival Mode: [facility] EMERGENCY ROOM TECH: IV Onset (how long ago): year(s) Radiation: Reports non-radiation Severity: mild Duration (how long): month(s) Timing of current episode: intermittent Chronicity: chronic Associated symptoms: Reports denies other symptoms Past Medical/Family History Physician Review I have reviewed the patient's past medical and family history. Any updates have been documented here. Past Medical History Recent Fever: No Clinical Suspicion of Infectio: No New/Unexplained Change in Ment: No Past Medical History: Hypertension, HIV Other Medical History: HIV Past Surgical History: None Other Surgery: UNDESCENDED TESTICLES EGD 03/2019 Other Last Tetanus: UTD Any Pre-Existing Lines (PICC,: No Review of Systems Review of Systems Constitutional: Reports no symptoms EENTM: Reports no symptoms Cardiovascular: Reports no symptoms Respiratory: Reports no symptoms Gastrointestinal: Reports as per HPI, Reports abdominal pain, Reports nausea, Reports vomiting Genitourinary: Reports no symptoms Musculoskeletal: Reports no symptoms Integumentary: Reports no symptoms Neurological: Reports no symptoms Psychological: Reports no symptoms Endocrine: Reports no symptoms Hematological/Lymphatic: Reports no symptoms Physical Exam Related Data Allergies: Coded Allergies: No Known Drug Allergies (Verified Allergy, Unknown, 01/01/20) Triage Vital Signs Vital Signs Date Time Temp Pulse Resp B/P (MAP) Pulse Ox O2 Delivery O2 Flow Rate FiO2 01/19/20 10:24 97.9 114 18 122/75 99 Room Air Vital signs reviewed: Yes Physical Exam CONSTITUTIONAL Constitutional: Present well-developed, Present well-nourished HENT HENT: Present normocephalic, Present atraumatic, Present oropharynx clear/moist, Present nose normal HENT L/R: Present left ext ear normal, Present right ext ear normal EYES Eyes: Reports PERRL, Reports conjunctivae normal NECK Neck: Present ROM normal PULMONARY Pulmonary: Present effort normal CARDIOVASCULAR Cardiovascular: Present regular rhythm, Present normal rate GASTROINTESTINAL GENITOURINARY Genitourinary: Present exam deferred SKIN Skin: Present warm, Present dry MUSCULOSKELETAL Musculoskeletal: Present ROM normal NEUROLOGICAL Neurological: Present alert, Present oriented x 3, Present no gross motor or sensory deficits PSYCHOLOGICAL Psychological: Present mood/affect normal, Present judgement normal Assessment & Plan Medical Decision Making MDM 39-year-old male arrives the ED with complaints of nausea vomiting. Patient refuses to give lab work, urinalysis or particularly imaging. Patient multiple ER visits for similar complaints. Patient noted to cocaine and marijuana positive in the past. Spoke to patient at length about concerns related to how this may cause abdominal resulting in his pain. Patient also informed that cannabinoid use may resultant hyperemesiS. Patient expressed understanding. This received 1 L IV fluids, Bentyl and Zofran patient discharged home on Bentyl and Zofran. Return precautions given. Patient states he has a GI doctor follow- up on Wednesday. Assessment & Plan Final Impression: (1) Cocaine abuse (2) Intractable nausea and vomiting (3) Cannabinoid hyperemesis syndrome Depart Disposition: HOME, SELF-CARE Last Vital Signs Date Time Temp Pulse Resp B/P (MAP) Pulse Ox O2 Delivery O2 Flow Rate FiO2 01/19/20 10:24 97.9 112 18 141/84 99 Room Air Home Meds Active Scripts Haloperidol (HALOPERIDOL) 1 Mg Tablet, 2 MG PO DAILY PRN for NAUSEA MDD 2 mg, #20 TAB Prov:NITIN DUBON MD 12/26/19 Pantoprazole Sodium* (PROTONIX) 40 Mg Tablet., 40 MG PO DAILY, #14 TAB Prov:GEOVANI MONROY, 12/14/19 Dicyclomine Hcl (BENTYL) 10 Mg/1 Ml Ampul, 20 MG PO QID, #20 VIAL Prov:GEOVANI MONROY, DO 12/14/19 Reported Medications Dicyclomine Hcl (BENTYL) 10 Mg/1 Ml Ampul, 20 MG IV QID, VIAL 04/04/19 Metronidazole (FLAGYL) 500 Mg Tablet, 500 MG PO Q6H 04/04/19 Acetaminophen/Codeine* (TYLENOL # 3*) 1 Ea Tab, PO PRN PRN for ABDOMINAL PAIN 04/04/19 Clindamycin Hcl (CLINDAMYCIN HCL) 300 Mg Capsule, 300 MG PO Q6H 04/04/19 Hydrochlorothiazide (HYDROCHLOROTHIAZIDE) 25 Mg Tablet, 12.5 MG PO DAILY, #30 TAB 03/14/19 Medications in the ED Sodium Chloride 1,000 ml @ 0 mls/hr Q0M STAT IV Last administered on 01/19/20at 10:49; Admin Dose 1,000 MLS/HR; Start 01/19/20 at 10:31; Stop 01/19/20 at 10:33; Status DC Ondansetron HCl 4 mg NOW STAT IV Last administered on 01/19/20at 10:49; Admin Dose 4 MG; Start 01/19/20 at 10:31; Stop 01/19/20 at 10:44; Status DC GEOVANI MONROY, Jan 19, 2020 10:53
--- OUTSIDE RECORDS SUMMARY | 2020-01-19 11:20 | XMS REPORT | Clinical Summary ---
Author Author [facility] Organization [facility] Address Unknown Phone Unavailable Care Team Providers Care All Source Intelligence Name Role Phone PCP Unavailable Allergies Comments [...] Kyra Wei RN Results Not on fileafter 01/18/2019 Insurance Type Payer Benefit Subscriber ID Effective Phone Address Plan / Dates Group [place] [employer] [id number] SSI xxxxxxxxx 2017-P [id number] [place] [address] [facility] SELF-PAY SELF-PAY xxxxxxxxx 2018-P [phone] [id number] [place] [address] Vimal Kim Personal/F Self [address] am[place] (Home) [place] [address] Advance Directives Date Inactivated Comments Code Status Date Activated 11/12/2011 4:39 PM Full Code 11/11/2011 4:04 AM
--- OUTSIDE RECORDS SUMMARY | 2020-01-19 11:22 | XMS REPORT | Continuity of Care Document ---
Author Author [facility] t Organization [facility] [place], [place] Address [address] [place]. [address] [place] [id number] Phone Unavailable Care Team Providers Care Resource Protection Specialist Name Role Phone NONSTAFF PCP Unavailable Sergio MONTGOMERY Attphys Unavailable WESLY SPICER Attphys Unavailable Brown MONROY Attphys Unavailable PAULINE DAMON Attphys Unavailable Payers Payer Name Policy Type Policy Number Effective Date Expiration Date [employer] Is[place] Medicaid [id number] 2018 00:00:00 2020 00:00:00 [facility] Problems Condition Name Condition Details Condition Category Status Onset Date Resolution Date Last Treatment Date Treating Clinician Comments Source LBP (low back pain) LBP (low back pain) Disease Active 2014-05-11 00:00 :00 [facility] Homeless Homeless Disease Active 2012-01-12 00:00:00 [facility] Polysubstance (excluding opioids) dependence Polysubst ance (excluding opioids) dependence Disease Active 2011-12-15 00:00:00 [facility] AIDS AIDS Disease Active 2011-09-03 00:00:00 [facility] Major depression, recurrent Major depression, recurrent Disease Active 2010-12-15 00:00:00 [facility] ealt Irritable bowel syndrome Problem Active [facility] Cocaine abuse Problem Active [facility] Cannabinoid hyperemesis syndrome Problem Active [facility] Intractable vomiting with nausea Problem Active [facility] Nausea and vomiting Problem Active [facility] Renal insufficiency Problem Active [facility] Abdominal pain Abdominal pain Disease Active [facility] Allergies, Adverse Reactions, Alerts Allergy Name Allergy Type Status Severity Reaction(s) Onset Date Inacti ve Date Treating Clinician Comments Source No Known Allergies DA Active U 2019-02-28 00:00:00 [facility] Aspirin Propensity to adverse reactions to drug Active 2018-01-06 00:00:00 [facility] ASPIRIN DA Active U 2005-10-16 00:00:00 [facility] No Known Contrast Allergies DA Active U 2005-10-16 00:00: 00 [facility] No Known Food Allergies DA Active U 2005-10-16 00:00:00 [facility] No Known Other Allergies DA Active U 2005-10-16 00:00:00 [facility] Family History Family Member Diagnosis Comments Start Date Stop Date Source Natural brother Diabetes [facility] alth Natural father Lipids [facility] Natural father Unknown Fam Hx [facility] Natural mother Alcohol/Drug [facility] Natural mother Hypertension [facility] Natural sister Seizures [facility] Social History Social Habit Start Date Stop Date Quantity Comments Source History of tobacco use Cigarette Smoker [facility] Sex Assigned [facility] Cigarettes smoked current (pack per day) - Reported 00:00:00 2018-10-05 00:00:00 [facility] Cigarette pack-years 2018-10-05 00:00:00 2018-10-05 00:00:00 [facility] Alcohol intake 2018-10-05 00:00:00 2018-10-05 00:00:00 Current non-drinker of alcohol (finding) [facility] SDOH Food Worry 2016-09-22 00:00:00 2016-09-22 00:00:00 1 [facility] Food Scarcity 2016-09-22 00:00:00 2016-09-22 00:00:00 1 [facility] Smoking Status Start Date Stop Date Source Current every day smoker 2018-10-05 00:00:00 [facility] Medications Ordered Medication Name Filled Medication Name Start Date Stop Da te Current Medication? Ordering Clinician Indication Dosage Frequency Signature (SIG) Comments Components Source Haloperidol Haloperidol 2019-12-26 08:19:00 Yes 2 Daily as needed for Nausea [facility] Dicyclomine Hcl (Bentyl) 10 Mg/1 Ml AMPUL Dicyclomine Hcl (Bentyl) 10 Mg/1 Ml AMPUL 2019-12-14 10:35:00 Yes 20 Four Times Daily [facility] Pantoprazole Sodium (Protonix) 40 Mg TABLET. Pantopr azole Sodium (Protonix) 40 Mg TABLET. 2019-12-14 10:35:00 Yes 40 Daily [facility] Ondansetron Hcl (Zofran*) 4 Mg TABLET Ondansetron Hcl (Zofra n*) 4 Mg TABLET 2019-12-14 10:35:00 2019-12-26 00:00:00 No 4 Every 6 Hours as needed for Nausea [facility] ibuprofen (MOTRIN) 400 mg tablet 2018-01-06 00:00:00 Yes Abdominal pain, unspecified abdominal location 400mg Take 1 ta blet by mouth every 8 hours as needed for Pain. [facility] sulfamethoxazole-trimethoprim (BACTRIM DS) 800-160 mg per ta blet 2017-02-19 00:00:00 Yes AIDS 1{tbl} Take 1 tablet by mouth 3 time s weekly. [facility] darunavir (PREZISTA) 800 mg Tab tablet 2017-02-18 00:00:00 Yes AIDS 800mg QD Take 1 tablet by mouth daily. [facility] RITONavir (NORVIR) 100 mg Tab 2017-02-18 00:00:00 Yes AIDS 100mg QD Take 1 tablet by mouth daily. [facility] emtricitabine-tenofovir alafen (DESCOVY) 200-25 mg tablet 2017-02-18 00:00:00 Yes AIDS 1{tbl} QD Take 1 tablet by mouth daily. [facility] BOOST VHC 0.09-2.25 gram-kcal/mL oral liquid 2017-02-18 00:00:00 Yes AIDS 1{package} Take 1 Package by mouth 3 times daily. [facility] Acetaminophen/Codeine Phosphate (Tylenol # 3*) 1 Ea TA B Acetaminophen/Codeine Phosphate (Tylenol # 3*) 1 Ea TAB Yes As Needed as needed for Abdominal Pain [facility] Clindamycin Hcl Clindamycin Hcl Yes 300 Every 6 Hours [facility] Dicyclomine Hcl (Bentyl) 10 Mg/1 Ml AMPUL Dicyclomine Hcl (Bentyl) 10 Mg/1 Ml AMPUL Yes 20 Four Times Daily [facility] Hydrochlorothiazide Hydrochlorothiazide Yes 12.5 Daily [facility] Metronidazole (Flagyl) 500 Mg TABLET Metronidazole (Flagyl) 500 Mg TABLET Yes 500 Every 6 Hours [facility] Immunizations Ordered Immunization Name Filled Immunization Name Date Status Comments Source Influenza <Unspecified> 2017-03-09 00:00:00 Completed [facility] PPD 2016-09-22 00:00:00 Completed [facility] Pneumococcal 13-valent conj 0.5 mL injection 2014-04-30 00 :00:00 Completed [facility] Influenza Vaccine 2014-01-30 00:00:00 Completed [facility] PPD 2014-01-02 00:00:00 Completed [facility] Influenza Vaccine 2012-02-09 00:00:00 Completed [facility] Hepatitis B Vaccine 2012-01-14 00:00:00 Completed [facility] PPV 23 Pneumococcal Polysaccaride 2011-12-17 00:00:00 Comp leted [facility] Hepatitis B Vaccine 2011-12-17 00:00:00 Completed [facility] PPD 2011-12-14 00:00:00 Completed [facility] PPD 2010-10-24 00:00:00 Completed [facility] Tdap Tetanus, diphtheria, acellular pertussis Vaccine 2009-10-31 00:00:00 [facility] Vital Signs Vital Name Observation Time Observation Value Comments Source Weight 2020-01-01 07:33:00 120 [lb_av] [facility] BMI (Body Mass Index) 2020-01-01 07:33:00 13.5 kg/m2 [facility] Weight 2019-12-26 06:07:00 120 [lb_av] [facility] BMI (Body Mass Index) 2019-12-26 06:07:00 13.5 kg/m2 [facility] Weight 2019-12-24 13:41:00 120 [lb_av] [facility] BMI (Body Mass Index) 2019-12-24 13:41:00 13.5 kg/m2 [facility] Weight 2019-12-15 20:19:00 175 [lb_av] [facility] BMI (Body Mass Index) 2019-12-15 20:19:00 23.1 kg/m2 [facility] Weight 2019-12-14 07:55:00 210 [lb_av] [facility] BMI (Body Mass Index) 2019-12-14 07:55:00 37.2 kg/m2 [facility] Body Temperature 2019-04-04 12:48:00 97.9 [degF] [facility] Procedures Procedure Date / Time Performed Performing Clinician [facility] e Computed tomography of abdomen and pelvis with contrast 00:00:00 [facility] Computed tomography of abdomen and pelvis with contrast 00:00:00 [facility] Computed tomography of abdomen and pelvis with contrast 2018 00:00:00 BRANDO MONTGOMERY [facility] INSPECTION OF LOWER INTESTINAL TRACT, ENDO 2019-03-17 00:00:00 [facility] INSPECTION OF UPPER INTESTINAL TRACT, ENDO 2019-03-17 00:00:00 [facility] CT of abdomen and pelvis without contrast 2019-03-14 00:00:00 [facility] Computed tomography of abdomen and pelvis with contrast 2018 00:00:00 PAULINE DAMON [facility] Plan of Care Planned Activity Planned Date Details Comments Source Future Scheduled Test 2020-02-01 00:00:00 IMM Influenza Seas onal Jan to July (>/= 19 yrs) [code = IMM Influenza Seasonal Jan to July (>/= 19 yrs)] [facility] Instructions Abdominal Pain - Adult [facility] Instructions Vomiting - Adult [facility] Encounters Start Date/Time End Date/Time Encounter Type Admission Type Attendi [facility] Care Department Encounter ID Source 2019-12-26 06:15:00 2019-12-26 09:01:00 Departed Emergency Room [facility] [id number] [facility] 2019-12-24 13:40:00 2019-12-24 17:46:00 Departed Emergency Room 1 WESLY SPICER [facility] [id number] [facility] 2019-12-15 20:45:00 2019-12-16 00:02:00 Departed Emergency Room [facility] [id number] [facility] 2019-12-14 08:05:00 2019-12-14 11:10:00 Departed Emergency Room 1 GEOVANI MONROY [facility] [id number] [facility] 2019-04-04 07:55:00 2019-04-04 13:33:00 Departed Emergency Room 1 BRANDO MONTGOMERY [facility] [id number] [facility] 2019-03-26 16:20:00 2019-03-26 16:53:00 Departed Emergency Room [facility] [id number] [facility] 2019-03-15 11:39:00 2019-03-17 19:25:00 Discharged Inpatient 1 WESLY SPICER [facility] [id number] [facility] 2019-03-13 11:16:00 2019-03-13 16:09:00 Departed Emergency Room 1 PAULINE DAMON [facility] [id number] [facility] 2018-01-06 20:36:16 2018-01-06 20:36:16 Emergency [facility] [id number] [facility] 2016-09-16 15:48:00 2016-09-16 15:48:00 Emergency E [facility] MED [id number] [facility] Results Test Description Test Time Test Comments Results Result Comments Source CT ABDOMEN/PELVIS W 2020-01-01 09:16:00 [facility] [address] [address] Patient Name: QUYEN KIM MR #: [id number] : 1980 Age/Sex: 39/M Req #: [id number] Adm Physician: Ordered by: BRANDO MONTGOMERY MD Report #: [id number] Location: ER Room/Bed: Procedure: [id number] CT/CT ABDOMEN/PELVIS W Exam Date: 01/01/20 Exam Time: 1003 REPORT STATUS: Signed EXAMINATION: CT of the abdomen and pelvis with contrast. TECHNIQUE: Spiral CT images of the abdomen and pelvis were performed from the lung bases to the lesser trochanters after the intravenous administration of 100 cc of Isovue 300. Coronal and sagittal reformatted images were obtained. COMPARISON: Multiple CT abdomen and pelvic examinations, most recently 12/14/2019 CLINICAL HISTORY:Nausea, vomiting, abdominal pain DISCUSSION: ABDOMEN/PELVIS: LOWER THORAX:Air-filled cyst in right lung base abutting the hemidiaphragm, unchanged. Lung bases are otherwise unremarkable. HEPATOBILIARY: 3 Hyperdense foci in the left hepatic lobe are faintly visualized, though were seen to better advantage on comparison study secondary to timing of scan acquisition. No new focal hepatic lesion. No intrahepatic biliary ductal dilatation. SPLEEN: No splenomegaly or focal splenic lesion. PANCREAS: No focal masses or ductal dilatation. ADRENALS: No adrenal nodules. KIDNEYS/URETERS: Single right-sided and at least 4 left-sided renal cysts are unchanged (all have average internal attenuation less than 20 Hounsfield units). Unchanged nonobstructing 6 mm left lower pole renal ca lculus. No right renal calculi. No hydronephrosis or perinephric inflammation. PELVIC ORGANS/BLADDER: Urinary bladder is incompletely distended but otherwise unremarkable. Faint central prostatic calcifications. Pelvic phleboliths. PERITONEUM/RETROPERITONEUM: No ascites or pneumoperitoneum. LYMPH NODES: No pelvic sidewall, retroperitoneal, or mesenteric lymphadenopathy. VESSELS: Abdominal aorta, major branch vessels, and iliac arterial systems are patent. Portal vein, splenic vein, and central superior mesenteric vein are patent. Incidental note of a circumaortic left renal vein. GI TRACT: The large bowel shows no distention or wall thickening. Appendix is not definitively identified. No right lower quadrant inflammation. No small bowel dilatation to suggest obstruction. BONES AND SOFT TISSUE: No osseous destructive lesions. Degenerative disc changes and facet arthropathy at L5-S1. Bone island in the left iliac wing. No focal soft tissue abnormali ties. IMPRESSION: No acute intra-abdominal or pelvic CT abnormalities. Stable examination relative to 12/14/2019. 6 mm nonobstructing left lower pole renal calculus. Signed by: Dr. Dia Singleton M.D. on 01/01/2020 9:25 AM Dictated By: DIA SINGLETON MD 4 Transcribed By: JEANNE on 01/01/20924 COPY TO: BRANDO MONTGOMERY MD Blood leukocytes automated count (number/volume) 2020-01-01 07:42:00 Test Item White Blood Count (test code = 6690-2) 5.96 4.8-10.8 [facility] automated count (number/volume)2020-01-01 07:42:00* Test Item Value Reference Range Interpretation Comments Red Blood Count (test code = 789-8) 4.39 4.3-5.7 [facility] hemoglobin measurement (moles/volume)2020-01-01 07:42:00* Test Item Value Reference Range Interpretation Comments Hemoglobin (test code = 58689-7) 14.3 14.0-18.0 [facility]way[facility] blood hematocrit (volume fraction)2020-01-01 07:42:00* Test Item Value Reference Range Interpretation Comments Hematocrit (test code = 4544-3) 41.3 38.2-49.6 [facility] erythrocyte mean corpuscular [id number] 07:42:00* Test Item Value Reference Range Interpretation Comments Mean Corpuscular Volume (test code = 787-2) 94.1 81-99 [facility] erythrocyte mean corpuscular hemoglobin (mass per erythrocyte)2020-01-01 07:42:00* Test Item Value Reference Range Interpretation Comments Mean Corpuscular Hemoglobin (test code = 785-6) 32.6 28-32 [facility]way[facility] erythrocyte mean corpuscular hemoglobin concentration measurement (mass/volume)2020-01-01 07:42:00* Test Item Value Reference Range Interpretation Comments Mean Corpuscular Hemoglobin Concent (test code = 786-4) 34.6 31-35 [facility] ParkwayRDW [id number]-[id number] 07:42:00* Test Item Value Reference Range Interpretation Comments Red Cell Distribution Width (test code = 65203-0) 11.7 11.7 -14.4 [facility]way[facility] blood platelet count (count/volume)2020-01-01 07:42:00* Test Item Value Reference Range Interpretation Comments Platelet Count (test code = 777-3) 246 140-360 [facility]wayAutformerly [facility]ed [facility] segmented neutrophil count as percentage of total eojsgsoaup3820-29-76 07:42:00* Test Item Value Reference Range Interpretation Comments Neutrophils (%) (Auto) (test code = 86386-5) 61.4 38.7-80.0 [facility]way[facility] blood lymphocyte count as percentage ot total eqpmmzevyq4254-64-93 07:42:00* Test Item Value Reference Range Interpretation Comments Lymphocytes (%) (Auto) (test code = 736-9) 28.2 18.0-39.1 [facility]way[facility] blood monocyte count as percentage of total kvbwetxuie9753-02-01 07:42:00* Test Item Value Reference Range Interpretation Comments Monocytes (%) (Auto) (test code = 5905-5) 9.2 4.4-11.3 [facility]way[facility] blood eosinophil count as percentage of total ltnkkqzmho1531-08-22 07:42:00* Test Item Value Reference Range Interpretation Comments Eosinophils (%) (Auto) (test code = 713-8) 0.5 0.0-6.0 [facility]way[facility]ated blood basophil count as percentage of total glmngwtchx0391-18-16 07:42:00* Test Item Value Reference Range Interpretation Comments Basophils (%) (Auto) (test code = 706-2) 0.5 0.0-1.0 [facility] ParkwayFluoroscopic procedure less than one hour ixdwxwss3557-16-46 07:42:00* Test Item Value Reference Range Interpretation Comments IM GRANULOCYTES % (test code = IM GRANULOCYTES %) 0.2 0.0- 1.0 [facility]wayAutom[facility] blood neutrophil count 2020-01-01 07:42:00* Test Item Value Reference Range Interpretation Comments Neutrophils # (Auto) (test code = 751-8) 3.7 2.1-6.9 [facility] lymphocytes count (number/volume) 2020-01-01 07:42:00* Test Item Value Reference Range Interpretation Comments Lymphocytes # (Auto) (test code = 33067-8) 1.7 1.0-3.2 [facility]wayBlood monocytes automated count (number/volume)2020-01-01 07:42:00* Test Item Value Reference Range Interpretation Comments Monocytes # (Auto) (test code = 742-7) 0.6 0.2-0.8 [facility]wayAutomated blood eosinophil count 2020-01-01 07:42:00* Test Item Value Reference Range Interpretation Comments Eosinophils # (Auto) (test code = 711-2) 0.0 0.0-0.4 [facility]wayAutomated blood basophil count (count/volume)2020-01-01 07:42:00* Test Item Value Reference Range Interpretation Comments Basophils # (Auto) (test code = 704-7) 0.0 0.0-0.1 [facility] ParkwayFluoroscopic procedure less than one hour foqfefiq5321-13-62 07:42:00* Test Item Value Reference Range Interpretation Comments Absolute Immature Granulocyte (auto (jourdan t code = Absolute Immature Granulocyte (auto) 0.01 0-0.1 [facility]wayProthrombin time (PT) in platelet poor plasma by coagulation [id number] 07:42:00* Test Item Value Reference Range Interpretation Comments Prothrombin Time (test code = 5902-2) 13.4 11.9-14.5 [facility]wayINR in Platelet poor plasma by Coagulation [id number] 07:42:00* Test Item Value Reference Range Interpretation Comments Prothromb Time International Ratio (test code = 6301-6) 0.97 Oral Anticoagulant Therapy INR Values:1. Low Intensity Therapy 1.5 - 2.02 . Moderate Intensity Therapy 2.0 - 3.03. High Intensity Therapy(1) 2.5 - 3. 54. High Intensity Therapy(2) 3.0 - 4.05. Panic Value INR > 5.0 [facility] ParkwayActivated partial thromboplastin time (aPTT) in platelet poor plasma by coagulation [id number] 07:42:00* Test Item Value Reference Range Interpretation Comments Activated Partial Thromboplast Time (test code = 54108-9) 25.8 23.8-35.5 [facility] plasma sodium measurement (moles/volume)2020-01-01 07:42:00* Test Item Value Reference Range Interpretation Comments Sodium Level (test code = 2951-2) 143 136-145 [facility] or plasma potassium measurement (moles/volume)2020-01-01 07:42:00* Test Item Value Reference Range Interpretation Comments Potassium Level (test code = 2823-3) 3.3 3.5-5.1 [facility] or plasma chloride measurement (moles/volume)2020-01-01 07:42:00* Test Item Value Reference Range Interpretation Comments Chloride Level (test code = 2075-0) 105 98-107 [facility] or plasma carbon dioxide, total measurement (moles/volume)2020-01-01 07:42:00* Test Item Value Reference Range Interpretation Comments Carbon Dioxide Level (test code = 2028-9) 22 22-29 [facility] or plasma anion [id number] 07:42:00* Test Item Value Reference Range Interpretation Comments Anion Gap (test code = 83399-9) 19.3 8-16 [facility] or plasma urea nitrogen measurement (mass/volume)2020-01-01 07:42:00* Test Item Value Reference Range Interpretation Comments Blood Urea Nitrogen (test code = 3094-0) 8 7-26 [facility] or plasma creatinine measurement (mass/volume)2020-01-01 07:42:00* Test Item Value Reference Range Interpretation Comments Creatinine (test code = 2160-0) 1.61 0.72-1.25 [facility] or plasma urea nitrogen/creatinine mass [id number] 07:42:00* Test Item Value Reference Range Interpretation Comments BUN/Creatinine Ratio (test code = 3097-3) 5 6-25 [facility]wayEstimated glomerular filtration rate (GFR) mykwayswdhhgv6092-16-34 07:42:00* Test Item Value Reference Range Interpretation Comments Estimat Glomerular Filtration Rate (test code = 925137026) 58 >60 Ranges were taken from the National Kidney Disease Education Program and the [facility] literature.Reference ranges:60 or greater: Uhflve30-04 ( for 3 consecutive months): Chronic kidney disease 15 or less: Kidney failureW[facility] Health Surgical Hospital at ParkwayGlucose senfxuygvcj3834-64-48 07:42:00* Test Item Value Reference Range Interpretation Comments Glucose Level (test code = JHS4904) 118 74-118 [facility] or plasma calcium measurement (mass/volume)2020-01-01 07:42:00* Test Item Value Reference Range Interpretation Comments Calcium Level (test code = 57191-6) 10.3 8.4-10.2 [facility] or plasma magnesium measurement (mass/volume)2020-01-01 07:42:00* Test Item Value Reference Range Interpretation Comments Magnesium Level (test code = 09141-8) 2.0 1.3-2.1 [facility] or plasma total bilirubin measurement (mass/volume)2020-01-01 07:42:00* Test Item Value Reference Range Interpretation Comments Total Bilirubin (test code = 1975-2) 1.1 0.2-1.2 [facility] ParkwayFluoroscopic procedure less than one hour [id number] 07:42:00* Test Item Value Reference Range Interpretation Comments Aspartate Amino Transf (AST/SGOT) (test code = Aspartate Amino Transf (AST/SGOT)) 15 5-34 [facility] or plasma alanine aminotransferase measurement (enzymatic activity/volume)2020-01-01 07:42:00* Test Item Value Reference Range Interpretation Comments Alanine Aminotransferase (ALT/SGPT) (test code = 1742-6) 14 0-55 [facility] or plasma protein measurement (mass/volume)2020-01-01 07:42:00* Test Item Value Reference Range Interpretation Comments Total Protein (test code = 2885-2) 8.8 6.5-8.1 [facility] or plasma albumin measurement (mass/volume)2020-01-01 07:42:00* Test Item Value Reference Range Interpretation Comments Albumin (test code = 1751-7) 5.0 3.5-5.0 [facility] ParkwayPlasma globulin measurement (mass/volume) 2020-01-01 07:42:00* Test Item Value Reference Range Interpretation Comments Globulin (test code = 11969-1) 3.8 2.3-3.5 [facility] albumin/globulin mass [id number] 07:42:00* Test Item Value Reference Range Interpretation Comments Albumin/Globulin Ratio (test code = 1759-0) 1.3 0.8-2.0 [facility] alkaline phosphatase measurement (enzymatic activity/volume)2020-01-01 07:42:00* Test Item Value Reference Range Interpretation Comments Alkaline Phosphatase (test code = 6768-6) 93 40-150 [facility] or plasma creatine kinase measurement (enzymatic activity/volume)2020-01-01 07:42:00* Test Item Value Reference Range Interpretation Comments Creatine Kinase (test code = 2157-6) 52 30-200 [facility] or plasma creatine kinase MB measurement (mass/volume)2020-01-01 07:42:00* Test Item Value Reference Range Interpretation Comments Creatine Kinase MB (test code = 91251-8) 0.50 0-5.0 [facility]wayTroponin I measurement by highly sensitive enzyme yaduiowyvaf7101-36-75 07:42:00* Test Item Value Reference Range Interpretation Comments Troponin I (test code = 33587-3) 0.007 0-0.300 [facility] or plasma amylase measurement (enzymatic activity/volume)2020-01-01 07:42:00* Test Item Value Reference Range Interpretation Comments Amylase Level (test code = 1798-8) 99 25-125 [facility] plasma lipase measurement (enzymatic activity/volume)2020-01-01 07:42:00* Test Item Value Reference Range Interpretation Comments Lipase (test code = 3040-3) 21 8-78 [facility]wayUrine color zkndthppuphbw4245-84-34 08:13:00* Test Item Value Reference Range Interpretation Comments Urine Color (test code = 5778-6) YELLOW YELLOW [facility] ParkwayUrine [id number] 08:13:00* Test Item Value Reference Range Interpretation Comments Urine Clarity (test code = 84340-6) CLEAR CLEAR [facility] gravity of Urine by Test strip 2019-12-26 08:13:00* Test Item Value Reference Range Interpretation Comments Urine Specific [place] (test code = 5811-5) 1.020 1.010-1.02 5 [facility]wayUrine pH measurement by automated test ljqvr2857-28-38 08:13:00* Test Item Value Reference Range Interpretation Comments Urine pH (test code = 93345-7) 6.5 5-7 [facility] ParkwayUrine leukocyte esterase detection by zygxoxsp5037-06-54 08:13:00* Test Item Value Reference Range Interpretation Comments Urine Leukocyte Esterase (test code = 5799-2) NEGATIVE NEGATIVE [facility] ParkwayUrine nitrite iisekagwh9978-48-85 08:13:00* Test Item Value Reference Range Interpretation Comments Urine Nitrite (test code = 64260-5) NEGATIVE NEGATIVE [facility]wayUrine protein measurement by test strip (mass/volume)2019-12-26 08:13:00* Test Item Value Reference Range Interpretation Comments Urine Protein (test code = 5804-0) 1+ NEGATIVE [facility]wayUrine glucose mgdorujhq9244-69-03 08:13:00* Test Item Value Reference Range Interpretation Comments Urine Glucose (UA) (test code = 2349-9) NEGATIVE NEGATIVE [facility]wayUrine ketones detection by automated test fdksf8117-13-29 08:13:00* Test Item Value Reference Range Interpretation Comments Urine Ketones (test code = 33662-7) NEGATIVE NEGATIVE [facility] ParkwayUrine opiates screening lcpe4890-97-05 08:13:00* Test Item Value Reference Range Interpretation Comments Urine Opiates Screen (test code = 17180-4) POSITIVE NEGATIVE This test provides only a screen. Positive results should be repeated by a confi rmatory test.[facility] ParkwayBarbiturates screen, urine 2019-12-26 08:13:00* Test Item Value Reference Range Interpretation Comments Urine Barbiturates Screen (test code = 250591883) NEGATIVE NEGA TIVE [facility] ParkwayUrine phencyclidine detection by screening vayzmq2950-18-33 08:13:00* Test Item Value Reference Range Interpretation Comments Urine Phencyclidine Screen (test code = 95920-5) NEGATIVE NEGAT ANGY [facility] ParkwayUrine amphetamines detection by screen method > 1000 ng/bH3670-06-13 08:13:00* Test Item Value Reference Range Interpretation Comments Urine Amphetamines Screen (test code = 58179-7) NEGATIVE NEGATI VE [facility] ParkwayFluoroscopic procedure less than one hour qwieaown0148-80-11 08:13:00* Test Item Value Reference Range Interpretation Comments Urine Methamphetamines Screen (test code = Urine Metha mphetamines Screen) NEGATIVE NEGATIVE [facility] ParkwayUrine benzodiazepines detection by screening cuybdu7883-08-36 08:13:00* Test Item Value Reference Range Interpretation Comments Urine Benzodiazepines Screen (test code = 70560-5) NEGATIVE NEG ATIVE [facility]wayUrine cocaine measurement (mass/volume) 2019-12-26 08:13:00* Test Item Value Reference Range Interpretation Comments Urine Cocaine Screen (test code = 3398-5) NEGATIVE NEGATIVE [facility] ParkwayUrine cannabinoids detection by screening dykhuy7063-15-15 08:13:00* Test Item Value Reference Range Interpretation Comments Urine Cannabinoids Screen (test code = 55108-3) POSITIVE NEGATI VE This test provides only a screen. Positive results should be repeated by a confi rmatory test.[facility] ParkwayUrine methadone screen 2019-12-26 08:13:00* Test Item Value Reference Range Interpretation Comments Urine Methadone Screen (test code = 78567-5) NEGATIVE NEGATIVE THESE RESULTS ARE FOR MEDICAL TREATMENT ONLYTHIS REPORT CONTAINS UNCONFIR MED SCREENING RESULTS*POSITIVE RESULTS WILL BE CONFIRMED BY REFERENCE LAB UPON R EQUEST CUT-OFFDRUG CLASS CONCENTRATION ng/mLAmphetamines 1000Methamphetamines 1000Cocaine Metabolite 300Opiate 300Phencyc lidine 25Cannabinoid 50Barbiturates 300Benzodiazepine 300Methadone 300[facility] CenterU[facility] urobilinogen measurement by test strip (mass/volume)2019-12-26 08:13:00* Test Item Value Reference Range Interpretation Comments Urine Urobilinogen (test code = 91620-4) 0.2 0.2-1 [facility]wayUrine total bilirubin measurement (mass/volume)2019-12-26 08:13:00* Test Item Value Reference Range Interpretation Comments Urine Bilirubin (test code = 1978-6) NEGATIVE NEGATIVE [facility]wayUrine erythrocytes tfxgbwwvl7071-26-77 08:13:00* Test Item Value Reference Range Interpretation Comments Urine Blood (test code = 10066-9) MODERATE NEGATIVE [facility] ParkwayAutomated urine sediment leukocyte count by microscopy (number/high power field)2019-12-26 08:13:00* Test Item Value Reference Range Interpretation Comments Urine WBC (test code = 5821-4) 0-5 0-5 [facility] ParkwayErythrocytes detection in urine sediment by light gvvpbthemi2471-60-73 08:13:00* Test Item Value Reference Range Interpretation Comments Urine RBC (test code = 32917-5) 21-50 0-5 [facility] ParkwayBacteria detection in urine sediment by light fadbtrlill4708-09-22 08:13:00* Test Item Value Reference Range Interpretation Comments Urine Bacteria (test code = 34269-6) FEW NONE [facility] ParkwayEpithelial cells detection in urine sediment by light qwdxonnkcs8532-25-74 08:13:00* Test Item Value Reference Range Interpretation Comments Urine Epithelial Cells (test code = 67154-4) FEW NONE [facility] ParkwayCalcium oxalate crystals detection in urine sediment by light fadaamyuzg6231-25-82 08:13:00* Test Item Value Reference Range Interpretation Comments Urine Calcium Oxalate Crystals (test code = 5774-5) FEW FE W [facility] ParkwayMucus detection in urine sediment by light kegvimihhc1131-33-76 08:13:00* Test Item Value Reference Range Interpretation Comments Urine Mucus (test code = 8247-9) MANY RARE [facility] ParkwayUrine color ornhelwhsukio7927-68-56 08:13:00* Test Item Value Reference Range Interpretation Comments Urine Color (test code = 5778-6) YELLOW YELLOW [facility] ParkwayUrine gvggghb6933-98-72 08:13:00* Test Item Value Reference Range Interpretation Comments Urine Clarity (test code = 80898-3) CLEAR CLEAR [facility]burg[facility] gravity of Urine by Test strip 2019-12-26 08:13:00* Test Item Value Reference Range Interpretation Comments Urine Specific [place] (test code = 5811-5) 1.020 1.010-1.02 5 [facility]wayUrine pH measurement by automated test oekfu4217-26-46 08:13:00* Test Item Value Reference Range Interpretation Comments Urine pH (test code = 39137-1) 6.5 5-7 [facility] ParkwayUrine leukocyte esterase detection by irodwabu5978-13-18 08:13:00* Test Item Value Reference Range Interpretation Comments Urine Leukocyte Esterase (test code = 5799-2) NEGATIVE NEGATIVE [facility] ParkwayUrine nitrite xruhhwcfu2004-72-32 08:13:00* Test Item Value Reference Range Interpretation Comments Urine Nitrite (test code = 59464-8) NEGATIVE NEGATIVE [facility]wayUrine protein measurement by test strip (mass/volume)2019-12-26 08:13:00* Test Item Value Reference Range Interpretation Comments Urine Protein (test code = 5804-0) 1+ NEGATIVE [facility] ParkwayUrine glucose xkwoxcthx9754-55-86 08:13:00* Test Item Value Reference Range Interpretation Comments Urine Glucose (UA) (test code = 2349-9) NEGATIVE NEGATIVE [facility]wayUrine ketones detection by automated test qfeny4682-34-77 08:13:00* Test Item Value Reference Range Interpretation Comments Urine Ketones (test code = 49997-1) NEGATIVE NEGATIVE [facility] ParkwayUrine opiates screening ediz8322-99-44 08:13:00* Test Item Value Reference Range Interpretation Comments Urine Opiates Screen (test code = 03092-6) POSITIVE NEGATIVE This test provides only a screen. Positive results should be repeated by a confi rmatory test.[facility]wayBarbiturates screen, urine 2019-12-26 08:13:00* Test Item Value Reference Range Interpretation Comments Urine Barbiturates Screen (test code = 287647994) NEGATIVE NEGA TIVE [facility] ParkwayUrine phencyclidine detection by screening ptbshn6807-24-28 08:13:00* Test Item Value Reference Range Interpretation Comments Urine Phencyclidine Screen (test code = 86390-6) NEGATIVE NEGAT ANGY [facility] ParkwayUrine amphetamines detection by screen method > 1000 ng/gK9491-93-01 08:13:00* Test Item Value Reference Range Interpretation Comments Urine Amphetamines Screen (test code = 99423-2) NEGATIVE NEGATI VE [facility] ParkwayFluoroscopic procedure less than one hour ylyqsboz5392-60-71 08:13:00* Test Item Value Reference Range Interpretation Comments Urine Methamphetamines Screen (test code = Urine Metha mphetamines Screen) NEGATIVE NEGATIVE [facility]wayUrine benzodiazepines detection by screening nbjzzu2216-15-11 08:13:00* Test Item Value Reference Range Interpretation Comments Urine Benzodiazepines Screen (test code = 34518-5) NEGATIVE NEG ATIVE [facility]wayUrine cocaine measurement (mass/volume) 2019-12-26 08:13:00* Test Item Value Reference Range Interpretation Comments Urine Cocaine Screen (test code = 3398-5) NEGATIVE NEGATIVE [facility]wayUrine cannabinoids detection by screening fsuxfz3589-20-24 08:13:00* Test Item Value Reference Range Interpretation Comments Urine Cannabinoids Screen (test code = 17834-1) POSITIVE NEGATI VE This test provides only a screen. Positive results should be repeated by a confi rmatory test.[facility]wayUrine methadone screen 2019-12-26 08:13:00* Test Item Value Reference Range Interpretation Comments Urine Methadone Screen (test code = 35687-9) NEGATIVE NEGATIVE THESE RESULTS ARE FOR MEDICAL TREATMENT ONLYTHIS REPORT CONTAINS UNCONFIR MED SCREENING RESULTS*POSITIVE RESULTS WILL BE CONFIRMED BY REFERENCE LAB UPON R EQUEST CUT-OFFDRUG CLASS CONCENTRATION ng/mLAmphetamines 1000Methamphetamines 1000Cocaine Metabolite 300Opiate 300Phencyc lidine 25Cannabinoid 50Barbiturates 300Benzodiazepine 300Methadone 300[facility] CenterUrine urobilinogen measurement by test strip (mass/volume)2019-12-26 08:13:00* Test Item Value Reference Range Interpretation Comments Urine Urobilinogen (test code = 11256-0) 0.2 0.2-1 [facility]wayUrine total bilirubin measurement (mass/volume)2019-12-26 08:13:00* Test Item Value Reference Range Interpretation Comments Urine Bilirubin (test code = 1978-6) NEGATIVE NEGATIVE [facility]wayUrine erythrocytes kahwinxky3187-97-46 08:13:00* Test Item Value Reference Range Interpretation Comments Urine Blood (test code = 75509-9) MODERATE NEGATIVE [facility] ParkwayAutomated urine sediment leukocyte count by microscopy (number/high power field)2019-12-26 08:13:00* Test Item Value Reference Range Interpretation Comments Urine WBC (test code = 5821-4) 0-5 0-5 [facility]wayErythrocytes detection in urine sediment by light ulswjwrpha7096-49-32 08:13:00* Test Item Value Reference Range Interpretation Comments Urine RBC (test code = 35209-4) 21-50 0-5 [facility] ParkwayBacteria detection in urine sediment by light grgyusqvgi7081-25-77 08:13:00* Test Item Value Reference Range Interpretation Comments Urine Bacteria (test code = 43302-1) FEW NONE [facility] ParkwayEpithelial cells detection in urine sediment by light hozaqsxcsm5372-90-03 08:13:00* Test Item Value Reference Range Interpretation Comments Urine Epithelial Cells (test code = 39005-4) FEW NONE [facility] ParkwayCalcium oxalate crystals detection in urine sediment by light hpwbhjpfsj9239-22-31 08:13:00* Test Item Value Reference Range Interpretation Comments Urine Calcium Oxalate Crystals (test code = 5774-5) FEW FE W [facility] ParkwayMucus detection in urine sediment by light cuodmpzduy6179-90-34 08:13:00* Test Item Value Reference Range Interpretation Comments Urine Mucus (test code = 8247-9) MANY RARE [facility] ParkwayBlood leukocytes automated count (number/volume)2019-12-26 06:34:00* Test Item Value Reference Range Interpretation Comments White Blood Count (test code = 6690-2) 5.91 4.8-10.8 [facility]wayBlood erythrocytes automated count (number/volume)2019-12-26 06:34:00* Test Item Value Reference Range Interpretation Comments Red Blood Count (test code = 789-8) 4.15 4.3-5.7 [facility]wayBlood hemoglobin measurement (moles/volume)2019-12-26 06:34:00* Test Item Value Reference Range Interpretation Comments Hemoglobin (test code = 94706-5) 13.4 14.0-18.0 [facility] ParkwayAutomated blood hematocrit (volume fraction)2019-12-26 06:34:00* Test Item Value Reference Range Interpretation Comments Hematocrit (test code = 4544-3) 39.1 38.2-49.6 [facility] ParkwayAutomated erythrocyte mean corpuscular fhpqio8733-95-36 06:34:00* Test Item Value Reference Range Interpretation Comments Mean Corpuscular Volume (test code = 787-2) 94.2 81-99 [facility] ParkwayAutomated erythrocyte mean corpuscular hemoglobin (mass per erythrocyte)2019-12-26 06:34:00* Test Item Value Reference Range Interpretation Comments Mean Corpuscular Hemoglobin (test code = 785-6) 32.3 28-32 [facility] ParkwayAutomated erythrocyte mean corpuscular hemoglobin concentration measurement (mass/volume)2019-12-26 06:34:00* Test Item Value Reference Range Interpretation Comments Mean Corpuscular Hemoglobin Concent (test code = 786-4) 34.3 31-35 [facility] ParkwayRDW HsfIh-Yhb6571-23-25 06:34:00* Test Item Value Reference Range Interpretation Comments Red Cell Distribution Width (test code = 62813-9) 11.7 11.7 -14.4 [facility] ParkwayAutomated blood platelet count (count/volume)2019-12-26 06:34:00* Test Item Value Reference Range Interpretation Comments Platelet Count (test code = 777-3) 222 140-360 [facility] ParkwayAutomated blood segmented neutrophil count as percentage of total vwgdsowbmb3042-07-66 06:34:00* Test Item Value Reference Range Interpretation Comments Neutrophils (%) (Auto) (test code = 66795-9) 46.4 38.7-80.0 [facility] ParkwayAutomated blood lymphocyte count as percentage ot total bfbdwtpkgh7106-97-23 06:34:00* Test Item Value Reference Range Interpretation Comments Lymphocytes (%) (Auto) (test code = 736-9) 44.8 18.0-39.1 [facility] ParkwayAutomated blood monocyte count as percentage of total qyxlwtfpac4288-79-14 06:34:00* Test Item Value Reference Range Interpretation Comments Monocytes (%) (Auto) (test code = 5905-5) 7.8 4.4-11.3 [facility] ParkwayAutomated blood eosinophil count as percentage of total pajhxbkemb5129-47-33 06:34:00* Test Item Value Reference Range Interpretation Comments Eosinophils (%) (Auto) (test code = 713-8) 0.5 0.0-6.0 [facility] ParkwayAutomated blood basophil count as percentage of total dmxldscock2933-36-00 06:34:00* Test Item Value Reference Range Interpretation Comments Basophils (%) (Auto) (test code = 706-2) 0.3 0.0-1.0 [facility] ParkwayFluoroscopic procedure less than one hour ctldxwrw8604-27-53 06:34:00* Test Item Value Reference Range Interpretation Comments IM GRANULOCYTES % (test code = IM GRANULOCYTES %) 0.2 0.0- 1.0 [facility] ParkwayAutomated blood neutrophil count 2019-12-26 06:34:00* Test Item Value Reference Range Interpretation Comments Neutrophils # (Auto) (test code = 751-8) 2.7 2.1-6.9 [facility]wayBlood lymphocytes count (number/volume) 2019-12-26 06:34:00* Test Item Value Reference Range Interpretation Comments Lymphocytes # (Auto) (test code = 37044-2) 2.7 1.0-3.2 [facility]Bl[facility] monocytes automated count (number/volume)2019-12-26 06:34:00* Test Item Value Reference Range Interpretation Comments Monocytes # (Auto) (test code = 742-7) 0.5 0.2-0.8 [facility] ParkwayAutomated blood eosinophil count 2019-12-26 06:34:00* Test Item Value Reference Range Interpretation Comments Eosinophils # (Auto) (test code = 711-2) 0.0 0.0-0.4 [facility] ParkwayAutomated blood basophil count (count/volume)2019-12-26 06:34:00* Test Item Value Reference Range Interpretation Comments Basophils # (Auto) (test code = 704-7) 0.0 0.0-0.1 [facility] ParkwayFluoroscopic procedure less than one hour cxorkpsw3624-06-72 06:34:00* Test Item Value Reference Range Interpretation Comments Absolute Immature Granulocyte (auto (jourdan t code = Absolute Immature Granulocyte (auto) 0.01 0-0.1 [facility] or plasma sodium measurement (moles/volume)2019-12-26 06:34:00* Test Item Value Reference Range Interpretation Comments Sodium Level (test code = 2951-2) 138 136-145 [facility]gerum or plasma potassium measurement (moles/volume)2019-12-26 06:34:00* Test Item Value Reference Range Interpretation Comments Potassium Level (test code = 2823-3) 3.2 3.5-5.1 [facility]ger[facility] or plasma chloride measurement (moles/volume)2019-12-26 06:34:00* Test Item Value Reference Range Interpretation Comments Chloride Level (test code = 2075-0) 102 98-107 [facility]gerum or plasma carbon dioxide, total measurement (moles/volume)2019-12-26 06:34:00* Test Item Value Reference Range Interpretation Comments Carbon Dioxide Level (test code = 2028-9) 21 22-29 [facility]gerum or plasma anion rml9882-17-65 06:34:00* Test Item Value Reference Range Interpretation Comments Anion Gap (test code = 93049-2) 18.2 8-16 [facility] or plasma urea nitrogen measurement (mass/volume)2019-12-26 06:34:00* Test Item Value Reference Range Interpretation Comments Blood Urea Nitrogen (test code = 3094-0) 7 7-26 [facility] or plasma creatinine measurement (mass/volume)2019-12-26 06:34:00* Test Item Value Reference Range Interpretation Comments Creatinine (test code = 2160-0) 1.54 0.72-1.25 [facility] or plasma urea nitrogen/creatinine mass tctob1471-94-67 06:34:00* Test Item Value Reference Range Interpretation Comments BUN/Creatinine Ratio (test code = 3097-3) 5 6-25 [facility] ParkwayEstimated glomerular filtration rate (GFR) ofcoryuxsvctm6393-91-52 06:34:00* Test Item Value Reference Range Interpretation Comments Estimat Glomerular Filtration Rate (test code = 664329722) > 60 >60 Ranges were taken from the National Kidney Disease Education Program and the [facility] literature.Reference ranges:60 or greater: Mqjmeh17-51 ( for 3 consecutive months): Chronic kidney disease 15 or less: Kidney failureW[facility] Surgical Hospital at ParkwayGlucose yovhwfvpmgr6690-58-03 06:34:00* Test Item Value Reference Range Interpretation Comments Glucose Level (test code = LDL1468) 100 74-118 [facility] or plasma calcium measurement (mass/volume)2019-12-26 06:34:00* Test Item Value Reference Range Interpretation Comments Calcium Level (test code = 84618-6) 10.0 8.4-10.2 [facility] or plasma total bilirubin measurement (mass/volume)2019-12-26 06:34:00* Test Item Value Reference Range Interpretation Comments Total Bilirubin (test code = 1975-2) 1.0 0.2-1.2 [facility] ParkwayFluoroscopic procedure less than one hour qmzugvse9690-43-98 06:34:00* Test Item Value Reference Range Interpretation Comments Aspartate Amino Transf (AST/SGOT) (test code = Aspartate Amino Transf (AST/SGOT)) 16 5-34 [facility]gerum or plasma alanine aminotransferase measurement (enzymatic activity/volume)2019-12-26 06:34:00* Test Item Value Reference Range Interpretation Comments Alanine Aminotransferase (ALT/SGPT) (test code = 1742-6) 15 0-55 [facility]gerum or plasma protein measurement (mass/volume)2019-12-26 06:34:00* Test Item Value Reference Range Interpretation Comments Total Protein (test code = 2885-2) 8.4 6.5-8.1 [facility] or plasma albumin measurement (mass/volume)2019-12-26 06:34:00* Test Item Value Reference Range Interpretation Comments Albumin (test code = 1751-7) 4.6 3.5-5.0 [facility] ParkwayPlasma globulin measurement (mass/volume) 2019-12-26 06:34:00* Test Item Value Reference Range Interpretation Comments Globulin (test code = 63547-2) 3.8 2.3-3.5 [facility]ger[facility] or plasma albumin/globulin mass lbzar8933-00-87 06:34:00* Test Item Value Reference Range Interpretation Comments Albumin/Globulin Ratio (test code = 1759-0) 1.2 0.8-2.0 [facility]gerum or plasma alkaline phosphatase measurement (enzymatic activity/volume)2019-12-26 06:34:00* Test Item Value Reference Range Interpretation Comments Alkaline Phosphatase (test code = 6768-6) 85 40-150 [facility]gerum or plasma lipase measurement (enzymatic activity/volume)2019-12-26 06:34:00* Test Item Value Reference Range Interpretation Comments Lipase (test code = 3040-3) 16 8-78 [facility] ParkwayCHEST SINGLE (PORTABLE)2019-12-24 14:44:00 [place] [facility] [address] [place] [address] Patient Name: QUYEN KIM MR #: [id number] : 1980 Age/Sex: 39/M Req #: [id number] Adm Physician: Ordered by: WESLY SPICER DO Report #: [id number] Location: ER Room/Bed: Procedure: [id number] DX/CHEST [...] PM Dictated By: ROXANN MEDEL MD, MD 43 Transcribed B y: JEANNE on 12/24/191445 COPY TO: WESLY SPICER DO Fluoroscopic procedure less than one hour maeaaequ3358-93-56 14:04:00* Test Item Value Reference Range Interpretation [...] collected from individuals suspected of COVID-19 by [facility] provider. This test has not been [...] EUA is revoked under 564(g) of the ACT.[facility]wayFluoroscopic procedure less than one hour ogxzohoj4066-37-70 14:04:00* Test Item Value Reference Range Interpretation [...] collected from individuals suspected of COVID-19 by [facility] provider. This test has not been [...] EUA is revoked under 564(g) of the ACT.[facility] ParkwayFluoroscopic procedure less than one hour mamsmldx9708-37-85 14:04:00* Test Item Value Reference Range Interpretation [...] collected from individuals suspected of COVID-19 by [facility] provider. This test has not been [...] EUA is revoked under 564(g) of the ACT.[facility] leukocytes automated count (number/volume) 2019-12-24 13:46:00* Test Item Value Reference Range Interpretation Comments White Blood Count (test code = 6690-2) 6.04 4.8-10.8 [facility] erythrocytes automated count (number/volume)2019-12-24 13:46:00* Test Item Value Reference Range Interpretation Comments Red Blood Count (test code = 789-8) 4.80 4.3-5.7 [facility] ParkwayBlood hemoglobin measurement (moles/volume)2019-12-24 13:46:00* Test Item Value Reference Range Interpretation Comments Hemoglobin (test code = 88771-5) 15.6 14.0-18.0 [facility] ParkwayAutomated blood hematocrit (volume fraction)2019-12-24 13:46:00* Test Item Value Reference Range Interpretation Comments Hematocrit (test code = 4544-3) 44.5 38.2-49.6 [facility] ParkwayAutomated erythrocyte mean corpuscular aopxbq4652-93-61 13:46:00* Test Item Value Reference Range Interpretation Comments Mean Corpuscular Volume (test code = 787-2) 92.7 81-99 [facility] ParkwayAutomated erythrocyte mean corpuscular hemoglobin (mass per erythrocyte)2019-12-24 13:46:00* Test Item Value Reference Range Interpretation Comments Mean Corpuscular Hemoglobin (test code = 785-6) 32.5 28-32 [facility] ParkwayAutomated erythrocyte mean corpuscular hemoglobin concentration measurement (mass/volume)2019-12-24 13:46:00* Test Item Value Reference Range Interpretation Comments Mean Corpuscular Hemoglobin Concent (test code = 786-4) 35.1 31-35 [facility] ParkwayRDW FreLu-Skr8677-30-23 13:46:00* Test Item Value Reference Range Interpretation Comments Red Cell Distribution Width (test code = 50293-8) 11.5 11.7 -14.4 [facility] ParkwayAutomated blood platelet count (count/volume)2019-12-24 13:46:00* Test Item Value Reference Range Interpretation Comments Platelet Count (test code = 777-3) 262 140-360 [facility] ParkwayAutomated blood segmented neutrophil count as percentage of total vaydyxpnpj8619-15-40 13:46:00* Test Item Value Reference Range Interpretation Comments Neutrophils (%) (Auto) (test code = 96007-2) 64.1 38.7-80.0 [facility] ParkwayAutomated blood lymphocyte count as percentage ot total tpejjqpjrs9447-73-07 13:46:00* Test Item Value Reference Range Interpretation Comments Lymphocytes (%) (Auto) (test code = 736-9) 29.1 18.0-39.1 [facility] ParkwayAutomated blood monocyte count as percentage of total oiahkicyew3090-37-48 13:46:00* Test Item Value Reference Range Interpretation Comments Monocytes (%) (Auto) (test code = 5905-5) 6.1 4.4-11.3 [facility] ParkwayAutomated blood eosinophil count as percentage of total jpyaijzciy7802-18-27 13:46:00* Test Item Value Reference Range Interpretation Comments Eosinophils (%) (Auto) (test code = 713-8) 0.2 0.0-6.0 [facility] ParkwayAutomated blood basophil count as percentage of total bolmhllrjv2292-37-83 13:46:00* Test Item Value Reference Range Interpretation Comments Basophils (%) (Auto) (test code = 706-2) 0.3 0.0-1.0 [facility] ParkwayFluoroscopic procedure less than one hour pkojvnrq3845-14-47 13:46:00* Test Item Value Reference Range Interpretation Comments IM GRANULOCYTES % (test code = IM GRANULOCYTES %) 0.2 0.0- 1.0 [facility] ParkwayAutomated blood neutrophil count 2019-12-24 13:46:00* Test Item Value Reference Range Interpretation Comments Neutrophils # (Auto) (test code = 751-8) 3.9 2.1-6.9 [facility] ParkwayBlood lymphocytes count (number/volume) 2019-12-24 13:46:00* Test Item Value Reference Range Interpretation Comments Lymphocytes # (Auto) (test code = 52357-1) 1.8 1.0-3.2 [facility]Bl[facility] monocytes automated count (number/volume)2019-12-24 13:46:00* Test Item Value Reference Range Interpretation Comments Monocytes # (Auto) (test code = 742-7) 0.4 0.2-0.8 [facility] ParkwayAutomated blood eosinophil count 2019-12-24 13:46:00* Test Item Value Reference Range Interpretation Comments Eosinophils # (Auto) (test code = 711-2) 0.0 0.0-0.4 [facility] ParkwayAutomated blood basophil count (count/volume)2019-12-24 13:46:00* Test Item Value Reference Range Interpretation Comments Basophils # (Auto) (test code = 704-7) 0.0 0.0-0.1 [facility] ParkwayFluoroscopic procedure less than one hour ixxgjglf9045-06-47 13:46:00* Test Item Value Reference Range Interpretation Comments Absolute Immature Granulocyte (auto (jourdan t code = Absolute Immature Granulocyte (auto) 0.01 0-0.1 [facility] ParkwayUrine opiates screening lagz4048-27-91 13:46:00* Test Item Value Reference Range Interpretation Comments Urine Opiates Screen (test code = 17736-6) POSITIVE NEGATIVE This test provides only a screen. Positive results should be repeated by a confi rmatory test.[facility] ParkwayBarbiturates screen, urine 2019-12-24 13:46:00* Test Item Value Reference Range Interpretation Comments Urine Barbiturates Screen (test code = 982283367) NEGATIVE NEGA TIVE [facility] ParkwayUrine phencyclidine detection by screening okhehv8239-52-60 13:46:00* Test Item Value Reference Range Interpretation Comments Urine Phencyclidine Screen (test code = 57047-1) NEGATIVE NEGAT ANGY [facility] ParkwayUrine amphetamines detection by screen method > 1000 ng/xL0690-87-24 13:46:00* Test Item Value Reference Range Interpretation Comments Urine Amphetamines Screen (test code = 80734-3) NEGATIVE NEGATI VE [facility] ParkwayFluoroscopic procedure less than one hour ookuqfic9640-59-02 13:46:00* Test Item Value Reference Range Interpretation Comments Urine Methamphetamines Screen (test code = Urine Metha mphetamines Screen) NEGATIVE NEGATIVE [facility] ParkwayUrine benzodiazepines detection by screening tcbdze2937-84-22 13:46:00* Test Item Value Reference Range Interpretation Comments Urine Benzodiazepines Screen (test code = 83789-1) NEGATIVE NEG ATIVE [facility] ParkwayUrine cocaine measurement (mass/volume) 2019-12-24 13:46:00* Test Item Value Reference Range Interpretation Comments Urine Cocaine Screen (test code = 3398-5) NEGATIVE NEGATIVE [facility] ParkwayUrine cannabinoids detection by screening xntjgx1501-83-14 13:46:00* Test Item Value Reference Range Interpretation Comments Urine Cannabinoids Screen (test code = 63355-1) POSITIVE NEGATI VE This test provides only a screen. Positive results should be repeated by a confi rmatory test.[facility] ParkwayUrine methadone screen 2019-12-24 13:46:00* Test Item Value Reference Range Interpretation Comments Urine Methadone Screen (test code = 59319-1) NEGATIVE NEGATIVE THESE RESULTS ARE FOR MEDICAL TREATMENT ONLYTHIS REPORT CONTAINS UNCONFIR MED SCREENING RESULTS*POSITIVE RESULTS WILL BE CONFIRMED BY REFERENCE LAB UPON R EQUEST CUT-OFFDRUG CLASS CONCENTRATION ng/mLAmphetamines 1000Methamphetamines 1000Cocaine Metabolite 300Opiate 300Phencyc lidine 25Cannabinoid 50Barbiturates 300Benzodiazepine 300Methadone 300[facility]inburgerum or plasma lipase measurement (enzymatic activity/volume)2019-12-24 13:46:00* Test Item Value Reference Range Interpretation Comments Lipase (test code = 3040-3) 51 8-78 [facility] Edinburgerum or plasma sodium measurement (moles/volume)2019-12-24 13:36:00* Test Item Value Reference Range Interpretation Comments Sodium Level (test code = 2951-2) 142 136-145 [facility] Edinburgerum or plasma potassium measurement (moles/volume)2019-12-24 13:36:00* Test Item Value Reference Range Interpretation Comments Potassium Level (test code = 2823-3) 3.3 3.5-5.1 [facility] Edinburgerum or plasma chloride measurement (moles/volume)2019-12-24 13:36:00* Test Item Value Reference Range Interpretation Comments Chloride Level (test code = 2075-0) 105 98-107 [facility] Edinburgerum or plasma carbon dioxide, total measurement (moles/volume)2019-12-24 13:36:00* Test Item Value Reference Range Interpretation Comments Carbon Dioxide Level (test code = 2028-9) 18 22-29 [facility] Edinburgerum or plasma anion mgi9605-31-45 13:36:00* Test Item Value Reference Range Interpretation Comments Anion Gap (test code = 10025-1) 22.3 8-16 [facility] Edinburgerum or plasma urea nitrogen measurement (mass/volume)2019-12-24 13:36:00* Test Item Value Reference Range Interpretation Comments Blood Urea Nitrogen (test code = 3094-0) 8 7-26 [facility] Edinburgerum or plasma creatinine measurement (mass/volume)2019-12-24 13:36:00* Test Item Value Reference Range Interpretation Comments Creatinine (test code = 2160-0) 1.99 0.72-1.25 [facility] Edinburgerum or plasma urea nitrogen/creatinine mass huwpe4989-59-87 13:36:00* Test Item Value Reference Range Interpretation Comments BUN/Creatinine Ratio (test code = 3097-3) 4 6-25 [facility] ParkwayEstimated glomerular filtration rate (GFR) ktfrvgialokmg6875-50-53 13:36:00* Test Item Value Reference Range Interpretation Comments Estimat Glomerular Filtration Rate (test code = 252923865) 45 >60 Ranges were taken from the National Kidney Disease Education Program and the [facility] Foundation literature.Reference ranges:60 or greater: Yokicu45-56 ( for 3 consecutive months): Chronic kidney disease 15 or less: Kidney failureW[facility] Health Surgical Hospital at ParkwayGlucose eymkecgohmk6319-94-97 13:36:00* Test Item Value Reference Range Interpretation Comments Glucose Level (test code = JGP6265) 125 74-118 [facility]inburgerum or plasma calcium measurement (mass/volume)2019-12-24 13:36:00* Test Item Value Reference Range Interpretation Comments Calcium Level (test code = 73712-7) 10.8 8.4-10.2 [facility]inburgerum or plasma total bilirubin measurement (mass/volume)2019-12-24 13:36:00* Test Item Value Reference Range Interpretation Comments Total Bilirubin (test code = 1975-2) 0.7 0.2-1.2 [facility] ParkwayFluoroscopic procedure less than one hour vnwlrzkn0195-42-58 13:36:00* Test Item Value Reference Range Interpretation Comments Aspartate Amino Transf (AST/SGOT) (test code = Aspartate Amino Transf (AST/SGOT)) 18 5-34 [facility] Edinburgerum or plasma alanine aminotransferase measurement (enzymatic activity/volume)2019-12-24 13:36:00* Test Item Value Reference Range Interpretation Comments Alanine Aminotransferase (ALT/SGPT) (test code = 1742-6) 15 0-55 [facility] Edinburgerum or plasma protein measurement (mass/volume)2019-12-24 13:36:00* Test Item Value Reference Range Interpretation Comments Total Protein (test code = 2885-2) 9.4 6.5-8.1 [facility] Edinburgerum or plasma albumin measurement (mass/volume)2019-12-24 13:36:00* Test Item Value Reference Range Interpretation Comments Albumin (test code = 1751-7) 5.1 3.5-5.0 [facility] ParkwayPlasma globulin measurement (mass/volume) 2019-12-24 13:36:00* Test Item Value Reference Range Interpretation Comments Globulin (test code = 12457-8) 4.3 2.3-3.5 [facility] Edinburgerum or plasma albumin/globulin mass rycvh7193-42-37 13:36:00* Test Item Value Reference Range Interpretation Comments Albumin/Globulin Ratio (test code = 1759-0) 1.2 0.8-2.0 [facility] Edinburgerum or plasma alkaline phosphatase measurement (enzymatic activity/volume)2019-12-24 13:36:00* Test Item Value Reference Range Interpretation Comments Alkaline Phosphatase (test code = 6768-6) 93 40-150 [facility] ParkwayBlood leukocytes automated count (number/volume)2019-12-15 20:40:00* Test Item Value Reference Range Interpretation Comments White Blood Count (test code = 6690-2) 7.38 4.8-10.8 [facility] ParkwayBlood erythrocytes automated count (number/volume)2019-12-15 20:40:00* Test Item Value Reference Range Interpretation Comments Red Blood Count (test code = 789-8) 4.22 4.3-5.7 [facility] ParkwayBlood hemoglobin measurement (moles/volume)2019-12-15 20:40:00* Test Item Value Reference Range Interpretation Comments Hemoglobin (test code = 24350-2) 13.8 14.0-18.0 [facility] ParkwayAutomated blood hematocrit (volume fraction)2019-12-15 20:40:00* Test Item Value Reference Range Interpretation Comments Hematocrit (test code = 4544-3) 41.0 38.2-49.6 [facility] ParkwayAutomated erythrocyte mean corpuscular mfvpmt0145-73-21 20:40:00* Test Item Value Reference Range Interpretation Comments Mean Corpuscular Volume (test code = 787-2) 97.2 81-99 [facility] ParkwayAutomated erythrocyte mean corpuscular hemoglobin (mass per erythrocyte)2019-12-15 20:40:00* Test Item Value Reference Range Interpretation Comments Mean Corpuscular Hemoglobin (test code = 785-6) 32.7 28-32 [facility] ParkwayAutomated erythrocyte mean corpuscular hemoglobin concentration measurement (mass/volume)2019-12-15 20:40:00* Test Item Value Reference Range Interpretation Comments Mean Corpuscular Hemoglobin Concent (test code = 786-4) 33.7 31-35 [facility] ParkwayRDW WleJb-Uvg1856-61-14 20:40:00* Test Item Value Reference Range Interpretation Comments Red Cell Distribution Width (test code = 46819-6) 11.9 11.7 -14.4 [facility] ParkwayAutomated blood platelet count (count/volume)2019-12-15 20:40:00* Test Item Value Reference Range Interpretation Comments Platelet Count (test code = 777-3) 242 140-360 [facility] ParkwayAutomated blood segmented neutrophil count as percentage of total fakkeuecdy2108-89-18 20:40:00* Test Item Value Reference Range Interpretation Comments Neutrophils (%) (Auto) (test code = 25054-6) 75.8 38.7-80.0 [facility] ParkwayAutomated blood lymphocyte count as percentage ot total jxgncdcbaq4352-03-15 20:40:00* Test Item Value Reference Range Interpretation Comments Lymphocytes (%) (Auto) (test code = 736-9) 19.8 18.0-39.1 [facility] ParkwayAutomated blood monocyte count as percentage of total ugajzlnlxa5180-16-66 20:40:00* Test Item Value Reference Range Interpretation Comments Monocytes (%) (Auto) (test code = 5905-5) 3.9 4.4-11.3 [facility] ParkwayAutomated blood eosinophil count as percentage of total whkbsljdrb3237-56-55 20:40:00* Test Item Value Reference Range Interpretation Comments Eosinophils (%) (Auto) (test code = 713-8) 0.0 0.0-6.0 [facility] ParkwayAutomated blood basophil count as percentage of total rzadojfzdc3221-77-06 20:40:00* Test Item Value Reference Range Interpretation Comments Basophils (%) (Auto) (test code = 706-2) 0.4 0.0-1.0 [facility] ParkwayFluoroscopic procedure less than one hour ycalblkw5319-89-23 20:40:00* Test Item Value Reference Range Interpretation Comments IM GRANULOCYTES % (test code = IM GRANULOCYTES %) 0.1 0.0- 1.0 [facility] ParkwayAutomated blood neutrophil count 2019-12-15 20:40:00* Test Item Value Reference Range Interpretation Comments Neutrophils # (Auto) (test code = 751-8) 5.6 2.1-6.9 [facility] ParkwayBlood lymphocytes count (number/volume) 2019-12-15 20:40:00* Test Item Value Reference Range Interpretation Comments Lymphocytes # (Auto) (test code = 84256-5) 1.5 1.0-3.2 [facility]wayBl[facility] hospital monocytes automated count (number/volume)2019-12-15 20:40:00* Test Item Value Reference Range Interpretation Comments Monocytes # (Auto) (test code = 742-7) 0.3 0.2-0.8 [facility] ParkwayAutomated blood eosinophil count 2019-12-15 20:40:00* Test Item Value Reference Range Interpretation Comments Eosinophils # (Auto) (test code = 711-2) 0.0 0.0-0.4 [facility] ParkwayAutomated blood basophil count (count/volume)2019-12-15 20:40:00* Test Item Value Reference Range Interpretation Comments Basophils # (Auto) (test code = 704-7) 0.0 0.0-0.1 [facility] ParkwayFluoroscopic procedure less than one hour djamjfen2129-47-56 20:40:00* Test Item Value Reference Range Interpretation Comments Absolute Immature Granulocyte (auto (jourdan t code = Absolute Immature Granulocyte (auto) 0.01 0-0.1 [facility]gerum or plasma sodium measurement (moles/volume)2019-12-15 20:40:00* Test Item Value Reference Range Interpretation Comments Sodium Level (test code = 2951-2) 142 136-145 [facility]inburgerum or plasma potassium measurement (moles/volume)2019-12-15 20:40:00* Test Item Value Reference Range Interpretation Comments Potassium Level (test code = 2823-3) 3.6 3.5-5.1 [facility]gerum or plasma chloride measurement (moles/volume)2019-12-15 20:40:00* Test Item Value Reference Range Interpretation Comments Chloride Level (test code = 2075-0) 108 98-107 [facility]burgerum or plasma carbon dioxide, total measurement (moles/volume)2019-12-15 20:40:00* Test Item Value Reference Range Interpretation Comments Carbon Dioxide Level (test code = 2028-9) 20 22-29 [facility]burgerum or plasma anion mao4061-64-38 20:40:00* Test Item Value Reference Range Interpretation Comments Anion Gap (test code = 37136-3) 17.6 8-16 [facility]ger[facility] or plasma urea nitrogen measurement (mass/volume)2019-12-15 20:40:00* Test Item Value Reference Range Interpretation Comments Blood Urea Nitrogen (test code = 3094-0) 14 7-26 [facility]gerum or plasma creatinine measurement (mass/volume)2019-12-15 20:40:00* Test Item Value Reference Range Interpretation Comments Creatinine (test code = 2160-0) 1.55 0.72-1.25 [facility]gerum or plasma urea nitrogen/creatinine mass caber2468-24-93 20:40:00* Test Item Value Reference Range Interpretation Comments BUN/Creatinine Ratio (test code = 3097-3) 9 6-25 [facility] ParkwayEstimated glomerular filtration rate (GFR) dulmtnolxwcuy4155-34-50 20:40:00* Test Item Value Reference Range Interpretation Comments Estimat Glomerular Filtration Rate (test code = 928809482) 60 >60 Ranges were taken from the National Kidney Disease Education Program and the [facility] Kid[facility] Foundation literature.Reference ranges:60 or greater: Kmbdae48-89 ( for 3 consecutive months): Chronic kidney disease 15 or less: Kidney failureW[facility] Health Surgical Hospital at ParkwayGlucose fxcxkogjtwt6843-93-88 20:40:00* Test Item Value Reference Range Interpretation Comments Glucose Level (test code = CKQ4594) 123 74-118 [facility]ger[facility] or plasma calcium measurement (mass/volume)2019-12-15 20:40:00* Test Item Value Reference Range Interpretation Comments Calcium Level (test code = 05787-9) 10.0 8.4-10.2 [facility]ger[facility] or plasma total bilirubin measurement (mass/volume)2019-12-15 20:40:00* Test Item Value Reference Range Interpretation Comments Total Bilirubin (test code = 1975-2) 0.9 0.2-1.2 [facility] ParkwayFluoroscopic procedure less than one hour cswilhjp2681-34-13 20:40:00* Test Item Value Reference Range Interpretation Comments Aspartate Amino Transf (AST/SGOT) (test code = Aspartate Amino Transf (AST/SGOT)) 18 5-34 [facility] Edinburgerum or plasma alanine aminotransferase measurement (enzymatic activity/volume)2019-12-15 20:40:00* Test Item Value Reference Range Interpretation Comments Alanine Aminotransferase (ALT/SGPT) (test code = 1742-6) 18 0-55 [facility]gerum or plasma protein measurement (mass/volume)2019-12-15 20:40:00* Test Item Value Reference Range Interpretation Comments Total Protein (test code = 2885-2) 8.8 6.5-8.1 [facility]gerum or plasma albumin measurement (mass/volume)2019-12-15 20:40:00* Test Item Value Reference Range Interpretation Comments Albumin (test code = 1751-7) 4.8 3.5-5.0 [facility] ParkwayPlasma globulin measurement (mass/volume) 2019-12-15 20:40:00* Test Item Value Reference Range Interpretation Comments Globulin (test code = 81905-3) 4.0 2.3-3.5 [facility]gerum or plasma albumin/globulin mass kkhqu5712-90-83 20:40:00* Test Item Value Reference Range Interpretation Comments Albumin/Globulin Ratio (test code = 1759-0) 1.2 0.8-2.0 [facility]gerum or plasma alkaline phosphatase measurement (enzymatic activity/volume)2019-12-15 20:40:00* Test Item Value Reference Range Interpretation Comments Alkaline Phosphatase (test code = 6768-6) 89 40-150 [facility]burgerum or plasma lipase measurement (enzymatic activity/volume)2019-12-15 20:40:00* Test Item Value Reference Range Interpretation Comments Lipase (test code = 3040-3) 15 8-78 [facility] ParkwayCT ABDOMEN/PELVIS H3801-92-52 10:01:00 [facility] [address] [address] Patient Name: QUYEN KIM MR #: [id number] : 1980 Age/Sex: 39/M Req #: [id number] Adm Physician: Ordered by: GOEVANI MONROY DO Report #: [id number] Location: ER Room/Bed: Procedure: [id number] CT/CT ABDOMEN /PELVIS W Exam Date: 12/14/19 [...] PY TO: GEOVANI MONROY DO Urine color zeaqqwibiodmz1925-59-47 09:35:00* Test Item Value Reference Range Interpretation Comments Urine Color (test code = 5778-6) ORANGE YELLOW [facility] ParkwayUrine vdibvok9945-85-06 09:35:00* Test Item Value Reference Range Interpretation Comments Urine Clarity (test code = 36991-5) SL CLOUDY CLEAR [facility] Edinburgpecific gravity of Urine by Test strip 2019-12-14 09:35:00* Test Item Value Reference Range Interpretation Comments Urine Specific [place] (test code = 5811-5) >=1.030 1.010-1.02 5 [facility] ParkwayUrine pH measurement by automated test lquwi4231-74-96 09:35:00* Test Item Value Reference Range Interpretation Comments Urine pH (test code = 10800-7) 6 5-7 [facility] ParkwayUrine leukocyte esterase detection by wlyzzvco1179-80-34 09:35:00* Test Item Value Reference Range Interpretation Comments Urine Leukocyte Esterase (test code = 5799-2) NEGATIVE NEGATIVE [facility] ParkwayUrine nitrite qkqoseeyn1506-52-13 09:35:00* Test Item Value Reference Range Interpretation Comments Urine Nitrite (test code = 19669-6) NEGATIVE NEGATIVE [facility] protein measurement by test strip (mass/volume)2019-12-14 09:35:00* Test Item Value Reference Range Interpretation Comments Urine Protein (test code = 5804-0) 2+ NEGATIVE [facility]wayU[facility] glucose rmjsgkxkq9749-21-87 09:35:00* Test Item Value Reference Range Interpretation Comments Urine Glucose (UA) (test code = 2349-9) NEGATIVE NEGATIVE [facility] ParkwayUrine ketones detection by automated test [id number] 09:35:00* Test Item Value Reference Range Interpretation Comments Urine Ketones (test code = 65164-2) 2+ NEGATIVE [facility] ParkwayUrine opiates screening [id number] 09:35:00* Test Item Value Reference Range Interpretation Comments Urine Opiates Screen (test code = 06228-9) POSITIVE NEGATIVE This test provides only a screen. Positive results should be repeated by a confi rmatory test.[facility]wayBarbiturates screen, urine 2019-12-14 09:35:00* Test Item Value Reference Range Interpretation Comments Urine Barbiturates Screen (test code = 169133061) NEGATIVE NEGA TIVE [facility]wayUrine phencyclidine detection by screening [id number] 09:35:00* Test Item Value Reference Range Interpretation Comments Urine Phencyclidine Screen (test code = 43035-1) NEGATIVE NEGAT ANGY [facility] ParkwayUrine amphetamines detection by screen method > 1000 ng/eQ1149-09-59 09:35:00* Test Item Value Reference Range Interpretation Comments Urine Amphetamines Screen (test code = 95167-1) NEGATIVE NEGATI VE [facility] ParkwayFluoroscopic procedure less than one hour [id number] 09:35:00* Test Item Value Reference Range Interpretation Comments Urine Methamphetamines Screen (test code = Urine Metha mphetamines Screen) NEGATIVE NEGATIVE [facility]wayUrine benzodiazepines detection by screening zjkvrs4934-43-82 09:35:00* Test Item Value Reference Range Interpretation Comments Urine Benzodiazepines Screen (test code = 35145-3) NEGATIVE NEG ATIVE [facility]wayUrine cocaine measurement (mass/volume) 2019-12-14 09:35:00* Test Item Value Reference Range Interpretation Comments Urine Cocaine Screen (test code = 3398-5) POSITIVE NEGATIVE This test provides only a screen. Positive results should be repeated by a confi rmatory test.[facility] ParkwayUrine cannabinoids detection by screening mtiizr3191-96-83 09:35:00* Test Item Value Reference Range Interpretation Comments Urine Cannabinoids Screen (test code = 40413-1) POSITIVE NEGATI VE This test provides only a screen. Positive results should be repeated by a confi rmatory test.[facility]wayUrine methadone screen 2019-12-14 09:35:00* Test Item Value Reference Range Interpretation Comments Urine Methadone Screen (test code = 32109-3) NEGATIVE NEGATIVE THESE RESULTS ARE FOR MEDICAL TREATMENT ONLYTHIS REPORT CONTAINS UNCONFIR MED SCREENING RESULTS*POSITIVE RESULTS WILL BE CONFIRMED BY REFERENCE LAB UPON R EQUEST CUT-OFFDRUG CLASS CONCENTRATION ng/mLAmphetamines 1000Methamphetamines 1000Cocaine Metabolite 300Opiate 300Phencyc lidine 25Cannabinoid 50Barbiturates 300Benzodiazepine 300Methadone 300[facility] CenterU[facility] urobilinogen measurement by test strip (mass/volume)2019-12-14 09:35:00* Test Item Value Reference Range Interpretation Comments Urine Urobilinogen (test code = 00180-4) 0.2 0.2-1 [facility]wayUrine total bilirubin measurement (mass/volume)2019-12-14 09:35:00* Test Item Value Reference Range Interpretation Comments Urine Bilirubin (test code = 1978-6) SMALL NEGATIVE [facility]wayUrine erythrocytes tgwlxltzs1745-96-62 09:35:00* Test Item Value Reference Range Interpretation Comments Urine Blood (test code = 56364-7) MODERATE NEGATIVE [facility] ParkwayAutomated urine sediment leukocyte count by microscopy (number/high power field)2019-12-14 09:35:00* Test Item Value Reference Range Interpretation Comments Urine WBC (test code = 5821-4) 11-20 0-5 [facility] ParkwayErythrocytes detection in urine sediment by light etneabytkp4064-67-09 09:35:00* Test Item Value Reference Range Interpretation Comments Urine RBC (test code = 77241-2) 6-10 0-5 [facility] ParkwayBacteria detection in urine sediment by light kpijmktatb6344-39-67 09:35:00* Test Item Value Reference Range Interpretation Comments Urine Bacteria (test code = 43226-1) RARE NONE [facility] ParkwayEpithelial cells detection in urine sediment by light pkybsgahey9234-89-79 09:35:00* Test Item Value Reference Range Interpretation Comments Urine Epithelial Cells (test code = 52449-5) FEW NONE [facility]wayUrine color wcdszddnyqgdd6883-29-50 09:35:00* Test Item Value Reference Range Interpretation Comments Urine Color (test code = 5778-6) ORANGE YELLOW [facility]wayUrine ppgpdty6002-27-68 09:35:00* Test Item Value Reference Range Interpretation Comments Urine Clarity (test code = 03927-5) SL CLOUDY CLEAR [facility] gravity of Urine by Test strip 2019-12-14 09:35:00* Test Item Value Reference Range Interpretation Comments Urine Specific [place] (test code = 5811-5) >=1.030 1.010-1.02 5 [facility]wayUrine pH measurement by automated test oumcm7764-20-75 09:35:00* Test Item Value Reference Range Interpretation Comments Urine pH (test code = 52751-7) 6 5-7 [facility]wayUrine leukocyte esterase detection by qrspmqke6103-85-67 09:35:00* Test Item Value Reference Range Interpretation Comments Urine Leukocyte Esterase (test code = 5799-2) NEGATIVE NEGATIVE [facility]wayUrine nitrite zvqpcsgge1222-28-71 09:35:00* Test Item Value Reference Range Interpretation Comments Urine Nitrite (test code = 58411-2) NEGATIVE NEGATIVE [facility]wayUrine protein measurement by test strip (mass/volume)2019-12-14 09:35:00* Test Item Value Reference Range Interpretation Comments Urine Protein (test code = 5804-0) 2+ NEGATIVE [facility]wayUrine glucose chrmlxnaj4280-56-44 09:35:00* Test Item Value Reference Range Interpretation Comments Urine Glucose (UA) (test code = 2349-9) NEGATIVE NEGATIVE [facility]wayUrine ketones detection by automated test rwpjp6782-49-96 09:35:00* Test Item Value Reference Range Interpretation Comments Urine Ketones (test code = 71916-1) 2+ NEGATIVE [facility] ParkwayUrine opiates screening [id number] 09:35:00* Test Item Value Reference Range Interpretation Comments Urine Opiates Screen (test code = 25058-5) POSITIVE NEGATIVE This test provides only a screen. Positive results should be repeated by a confi rmatory test.[facility]wayBarbiturates screen, urine 2019-12-14 09:35:00* Test Item Value Reference Range Interpretation Comments Urine Barbiturates Screen (test code = 827348186) NEGATIVE NEGA TIVE [facility]wayUrine phencyclidine detection by screening msnayj5506-74-69 09:35:00* Test Item Value Reference Range Interpretation Comments Urine Phencyclidine Screen (test code = 89966-2) NEGATIVE NEGAT ANGY [facility]wayUrine amphetamines detection by screen method > 1000 ng/gE2440-53-04 09:35:00* Test Item Value Reference Range Interpretation Comments Urine Amphetamines Screen (test code = 54391-1) NEGATIVE NEGATI VE [facility] ParkwayFluoroscopic procedure less than one hour vrkoihem4306-20-90 09:35:00* Test Item Value Reference Range Interpretation Comments Urine Methamphetamines Screen (test code = Urine Metha mphetamines Screen) NEGATIVE NEGATIVE [facility]wayUrine benzodiazepines detection by screening vdhzxv7188-51-04 09:35:00* Test Item Value Reference Range Interpretation Comments Urine Benzodiazepines Screen (test code = 70482-3) NEGATIVE NEG ATIVE [facility]wayUrine cocaine measurement (mass/volume) 2019-12-14 09:35:00* Test Item Value Reference Range Interpretation Comments Urine Cocaine Screen (test code = 3398-5) POSITIVE NEGATIVE This test provides only a screen. Positive results should be repeated by a confi rmatory test.[facility]wayUrine cannabinoids detection by screening [id number] 09:35:00* Test Item Value Reference Range Interpretation Comments Urine Cannabinoids Screen (test code = 97397-2) POSITIVE NEGATI VE This test provides only a screen. Positive results should be repeated by a confi rmatory test.[facility]wayUrine methadone screen 2019-12-14 09:35:00* Test Item Value Reference Range Interpretation Comments Urine Methadone Screen (test code = 02586-2) NEGATIVE NEGATIVE THESE RESULTS ARE FOR MEDICAL TREATMENT ONLYTHIS REPORT CONTAINS UNCONFIR MED SCREENING RESULTS*POSITIVE RESULTS WILL BE CONFIRMED BY REFERENCE LAB UPON R EQUEST CUT-OFFDRUG CLASS CONCENTRATION ng/mLAmphetamines 1000Methamphetamines 1000Cocaine Metabolite 300Opiate 300Phencyc lidine 25Cannabinoid 50Barbiturates 300Benzodiazepine 300Methadone 300[facility] CenterUrine urobilinogen measurement by test strip (mass/volume)2019-12-14 09:35:00* Test Item Value Reference Range Interpretation Comments Urine Urobilinogen (test code = 51524-2) 0.2 0.2-1 [facility]wayUrine total bilirubin measurement (mass/volume)2019-12-14 09:35:00* Test Item Value Reference Range Interpretation Comments Urine Bilirubin (test code = 1978-6) SMALL NEGATIVE [facility]wayUrine erythrocytes jbjsxcjrt6410-85-93 09:35:00* Test Item Value Reference Range Interpretation Comments Urine Blood (test code = 31227-6) MODERATE NEGATIVE [facility] ParkwayAutomated urine sediment leukocyte count by microscopy (number/high power field)2019-12-14 09:35:00* Test Item Value Reference Range Interpretation Comments Urine WBC (test code = 5821-4) 11-20 0-5 [facility] ParkwayErythrocytes detection in urine sediment by light spquccliwp9967-69-13 09:35:00* Test Item Value Reference Range Interpretation Comments Urine RBC (test code = 11722-5) 6-10 0-5 [facility] ParkwayBacteria detection in urine sediment by light gpzowlflzu3483-45-02 09:35:00* Test Item Value Reference Range Interpretation Comments Urine Bacteria (test code = 19991-0) RARE NONE [facility] ParkwayEpithelial cells detection in urine sediment by light lfbdyzbjrb2748-75-02 09:35:00* Test Item Value Reference Range Interpretation Comments Urine Epithelial Cells (test code = 12710-1) FEW NONE [facility] ParkwayUrine color ylffmizlqamit8029-52-92 09:35:00* Test Item Value Reference Range Interpretation Comments Urine Color (test code = 5778-6) ORANGE YELLOW [facility]wayUrine xsprgtg4455-36-29 09:35:00* Test Item Value Reference Range Interpretation Comments Urine Clarity (test code = 33873-3) SL CLOUDY CLEAR [facility]burgpecific gravity of Urine by Test strip 2019-12-14 09:35:00* Test Item Value Reference Range Interpretation Comments Urine Specific [place] (test code = 5811-5) >=1.030 1.010-1.02 5 [facility]wayUrine pH measurement by automated test jvbqw5797-31-87 09:35:00* Test Item Value Reference Range Interpretation Comments Urine pH (test code = 02817-0) 6 5-7 [facility] ParkwayUrine leukocyte esterase detection by uezfbqcv5197-25-08 09:35:00* Test Item Value Reference Range Interpretation Comments Urine Leukocyte Esterase (test code = 5799-2) NEGATIVE NEGATIVE [facility]wayUrine nitrite ngkgoebfq5005-87-56 09:35:00* Test Item Value Reference Range Interpretation Comments Urine Nitrite (test code = 49190-0) NEGATIVE NEGATIVE [facility]wayUrine protein measurement by test strip (mass/volume)2019-12-14 09:35:00* Test Item Value Reference Range Interpretation Comments Urine Protein (test code = 5804-0) 2+ NEGATIVE [facility]wayUrine glucose qejjxlztl1764-23-34 09:35:00* Test Item Value Reference Range Interpretation Comments Urine Glucose (UA) (test code = 2349-9) NEGATIVE NEGATIVE [facility]wayUrine ketones detection by automated test [id number] 09:35:00* Test Item Value Reference Range Interpretation Comments Urine Ketones (test code = 80082-3) 2+ NEGATIVE [facility] ParkwayUrine urobilinogen measurement by test strip (mass/volume)2019-12-14 09:35:00* Test Item Value Reference Range Interpretation Comments Urine Urobilinogen (test code = 02090-6) 0.2 0.2-1 [facility]wayUrine total bilirubin measurement (mass/volume)2019-12-14 09:35:00* Test Item Value Reference Range Interpretation Comments Urine Bilirubin (test code = 1978-6) SMALL NEGATIVE [facility]wayUrine erythrocytes dhfvemooc8905-07-36 09:35:00* Test Item Value Reference Range Interpretation Comments Urine Blood (test code = 17160-3) MODERATE NEGATIVE [facility] ParkwayAutomated urine sediment leukocyte count by microscopy (number/high power field)2019-12-14 09:35:00* Test Item Value Reference Range Interpretation Comments Urine WBC (test code = 5821-4) 11-20 0-5 [facility] ParkwayErythrocytes detection in urine sediment by light ivienmlkor8863-69-34 09:35:00* Test Item Value Reference Range Interpretation Comments Urine RBC (test code = 72759-7) 6-10 0-5 [facility] ParkwayBacteria detection in urine sediment by light nfvgufsrrg5494-55-35 09:35:00* Test Item Value Reference Range Interpretation Comments Urine Bacteria (test code = 99001-7) RARE NONE [facility] ParkwayEpithelial cells detection in urine sediment by light wfndfpjxjr2011-78-77 09:35:00* Test Item Value Reference Range Interpretation Comments Urine Epithelial Cells (test code = 33379-9) FEW NONE [facility] ParkwayBlood leukocytes automated count (number/volume)2019-12-14 08:00:00* Test Item Value Reference Range Interpretation Comments White Blood Count (test code = 6690-2) 8.67 4.8-10.8 [facility] ParkwayBlood erythrocytes automated count (number/volume)2019-12-14 08:00:00* Test Item Value Reference Range Interpretation Comments Red Blood Count (test code = 789-8) 4.16 4.3-5.7 [facility] hemoglobin measurement (moles/volume)2019-12-14 08:00:00* Test Item Value Reference Range Interpretation Comments Hemoglobin (test code = 51268-0) 13.6 14.0-18.0 [facility] ParkwayAutomated blood hematocrit (volume fraction)2019-12-14 08:00:00* Test Item Value Reference Range Interpretation Comments Hematocrit (test code = 4544-3) 40.9 38.2-49.6 [facility] ParkwayAutomated erythrocyte mean corpuscular uuzopn1890-68-68 08:00:00* Test Item Value Reference Range Interpretation Comments Mean Corpuscular Volume (test code = 787-2) 98.3 81-99 [facility] ParkwayAutomated erythrocyte mean corpuscular hemoglobin (mass per erythrocyte)2019-12-14 08:00:00* Test Item Value Reference Range Interpretation Comments Mean Corpuscular Hemoglobin (test code = 785-6) 32.7 28-32 [facility] ParkwayAutomated erythrocyte mean corpuscular hemoglobin concentration measurement (mass/volume)2019-12-14 08:00:00* Test Item Value Reference Range Interpretation Comments Mean Corpuscular Hemoglobin Concent (test code = 786-4) 33.3 31-35 [facility] ParkwayRDW WcrSz-Wqg6492-33-13 08:00:00* Test Item Value Reference Range Interpretation Comments Red Cell Distribution Width (test code = 35886-1) 12.0 11.7 -14.4 [facility] ParkwayAutomated blood platelet count (count/volume)2019-12-14 08:00:00* Test Item Value Reference Range Interpretation Comments Platelet Count (test code = 777-3) 206 140-360 [facility] ParkwayAutformerly [facility] hospitaled blood segmented neutrophil count as percentage of total xijmftkubq5298-45-19 08:00:00* Test Item Value Reference Range Interpretation Comments Neutrophils (%) (Auto) (test code = 45117-1) 61.8 38.7-80.0 [facility] ParkwayAutomated blood lymphocyte count as percentage ot total ddyikrrynj1355-88-79 08:00:00* Test Item Value Reference Range Interpretation Comments Lymphocytes (%) (Auto) (test code = 736-9) 30.0 18.0-39.1 [facility] ParkwayAutomated blood monocyte count as percentage of total gmwhtscfmd6939-90-23 08:00:00* Test Item Value Reference Range Interpretation Comments Monocytes (%) (Auto) (test code = 5905-5) 6.8 4.4-11.3 [facility] ParkwayAutomated blood eosinophil count as percentage of total ilskyuqazf1326-59-67 08:00:00* Test Item Value Reference Range Interpretation Comments Eosinophils (%) (Auto) (test code = 713-8) 0.5 0.0-6.0 [facility] ParkwayAutomated blood basophil count as percentage of total pilqknkeai8094-07-36 08:00:00* Test Item Value Reference Range Interpretation Comments Basophils (%) (Auto) (test code = 706-2) 0.6 0.0-1.0 [facility] ParkwayFluoroscopic procedure less than one hour pqjlljzm3931-50-05 08:00:00* Test Item Value Reference Range Interpretation Comments IM GRANULOCYTES % (test code = IM GRANULOCYTES %) 0.3 0.0- 1.0 [facility] ParkwayAutomated blood neutrophil count 2019-12-14 08:00:00* Test Item Value Reference Range Interpretation Comments Neutrophils # (Auto) (test code = 751-8) 5.4 2.1-6.9 [facility]wayBlood lymphocytes count (number/volume) 2019-12-14 08:00:00* Test Item Value Reference Range Interpretation Comments Lymphocytes # (Auto) (test code = 33094-5) 2.6 1.0-3.2 [facility] monocytes automated count (number/volume)2019-12-14 08:00:00* Test Item Value Reference Range Interpretation Comments Monocytes # (Auto) (test code = 742-7) 0.6 0.2-0.8 [facility] ParkwayAutomated blood eosinophil count 2019-12-14 08:00:00* Test Item Value Reference Range Interpretation Comments Eosinophils # (Auto) (test code = 711-2) 0.0 0.0-0.4 [facility] ParkwayAutomated blood basophil count (count/volume)2019-12-14 08:00:00* Test Item Value Reference Range Interpretation Comments Basophils # (Auto) (test code = 704-7) 0.1 0.0-0.1 [facility] ParkwayFluoroscopic procedure less than one hour xvyesqtk0858-37-16 08:00:00* Test Item Value Reference Range Interpretation Comments Absolute Immature Granulocyte (auto (jourdan t code = Absolute Immature Granulocyte (auto) 0.03 0-0.1 [facility]gerum or plasma sodium measurement (moles/volume)2019-12-14 08:00:00* Test Item Value Reference Range Interpretation Comments Sodium Level (test code = 2951-2) 145 136-145 [facility]inburgerum or plasma potassium measurement (moles/volume)2019-12-14 08:00:00* Test Item Value Reference Range Interpretation Comments Potassium Level (test code = 2823-3) 4.0 3.5-5.1 [facility]burgerum or plasma chloride measurement (moles/volume)2019-12-14 08:00:00* Test Item Value Reference Range Interpretation Comments Chloride Level (test code = 2075-0) 112 98-107 [facility] Edinburgerum or plasma carbon dioxide, total measurement (moles/volume)2019-12-14 08:00:00* Test Item Value Reference Range Interpretation Comments Carbon Dioxide Level (test code = 2028-9) 17 22-29 [facility]inburgerum or plasma anion sab3492-75-50 08:00:00* Test Item Value Reference Range Interpretation Comments Anion Gap (test code = 57541-4) 20.0 8-16 [facility]gerum or plasma urea nitrogen measurement (mass/volume)2019-12-14 08:00:00* Test Item Value Reference Range Interpretation Comments Blood Urea Nitrogen (test code = 3094-0) 15 7-26 [facility]burgerum or plasma creatinine measurement (mass/volume)2019-12-14 08:00:00* Test Item Value Reference Range Interpretation Comments Creatinine (test code = 2160-0) 1.44 0.72-1.25 [facility]gerum or plasma urea nitrogen/creatinine mass zskzx6032-45-96 08:00:00* Test Item Value Reference Range Interpretation Comments BUN/Creatinine Ratio (test code = 3097-3) 10 6-25 [facility] ParkwayEstimated glomerular filtration rate (GFR) tyxkzcgfakjuf8335-05-41 08:00:00* Test Item Value Reference Range Interpretation Comments Estimat Glomerular Filtration Rate (test code = 933465668) > 60 >60 Ranges were taken from the National Kidney Disease Education Program and the [facility] Kidney Foundation literature.Reference ranges:60 or greater: Yywtvx17-02 ( for 3 consecutive months): Chronic kidney disease 15 or less: Kidney failureW[facility] Health Surgical Hospital at ParkwayGlucose jscndmbujow1795-89-74 08:00:00* Test Item Value Reference Range Interpretation Comments Glucose Level (test code = QZQ7607) 101 74-118 [facility]gerum or plasma calcium measurement (mass/volume)2019-12-14 08:00:00* Test Item Value Reference Range Interpretation Comments Calcium Level (test code = 10242-7) 10.7 8.4-10.2 [facility]gerum or plasma total bilirubin measurement (mass/volume)2019-12-14 08:00:00* Test Item Value Reference Range Interpretation Comments Total Bilirubin (test code = 1975-2) 0.9 0.2-1.2 [facility] ParkwayFluoroscopic procedure less than one hour spihtjey7019-24-70 08:00:00* Test Item Value Reference Range Interpretation Comments Aspartate Amino Transf (AST/SGOT) (test code = Aspartate Amino Transf (AST/SGOT)) 17 5-34 [facility]burgerum or plasma alanine aminotransferase measurement (enzymatic activity/volume)2019-12-14 08:00:00* Test Item Value Reference Range Interpretation Comments Alanine Aminotransferase (ALT/SGPT) (test code = 1742-6) 15 0-55 [facility]gerum or plasma protein measurement (mass/volume)2019-12-14 08:00:00* Test Item Value Reference Range Interpretation Comments Total Protein (test code = 2885-2) 9.1 6.5-8.1 [facility]gerum or plasma albumin measurement (mass/volume)2019-12-14 08:00:00* Test Item Value Reference Range Interpretation Comments Albumin (test code = 1751-7) 4.9 3.5-5.0 [facility] ParkwayPlasma globulin measurement (mass/volume) 2019-12-14 08:00:00* Test Item Value Reference Range Interpretation Comments Globulin (test code = 92315-6) 4.2 2.3-3.5 [facility]gerum or plasma albumin/globulin mass wuniw3546-43-59 08:00:00* Test Item Value Reference Range Interpretation Comments Albumin/Globulin Ratio (test code = 1759-0) 1.2 0.8-2.0 [facility]gerum or plasma alkaline phosphatase measurement (enzymatic activity/volume)2019-12-14 08:00:00* Test Item Value Reference Range Interpretation Comments Alkaline Phosphatase (test code = 6768-6) 94 40-150 [facility]gerum or plasma creatine kinase measurement (enzymatic activity/volume)2019-12-14 08:00:00* Test Item Value Reference Range Interpretation Comments Creatine Kinase (test code = 2157-6) 57 30-200 [facility]gerum or plasma creatine kinase MB measurement (mass/volume)2019-12-14 08:00:00* Test Item Value Reference Range Interpretation Comments Creatine Kinase MB (test code = 15220-8) 0.40 0-5.0 [facility] [facility]Troponin I measurement by highly sensitive enzyme sgqjczftnca0165-52-35 08:00:00* Test Item Value Reference Range Interpretation Comments Troponin I (test code = 28179-4) 0.004 0-0.300 [facility] or plasma lipase measurement (enzymatic activity/volume)2019-12-14 08:00:00* Test Item Value Reference Range Interpretation Comments Lipase (test code = 3040-3) 19 8-78 [facility]ger[facility] or plasma creatine kinase measurement (enzymatic activity/volume)2019-12-14 08:00:00* Test Item Value Reference Range Interpretation Comments Creatine Kinase (test code = 2157-6) 57 30-200 [facility]gerum or plasma creatine kinase MB measurement (mass/volume)2019-12-14 08:00:00* Test Item Value Reference Range Interpretation Comments Creatine Kinase MB (test code = 44309-8) 0.40 0-5.0 [facility]Trop[facility] I measurement by highly sensitive enzyme hurjgcefhvm4483-46-15 08:00:00* Test Item Value Reference Range Interpretation Comments Troponin I (test code = 41557-3) 0.004 0-0.300 [facility] or plasma creatine kinase measurement (enzymatic activity/volume)2019-12-14 08:00:00* Test Item Value Reference Range Interpretation Comments Creatine Kinase (test code = 2157-6) 57 30-200 [facility]ger[facility] or plasma creatine kinase MB measurement (mass/volume)2019-12-14 08:00:00* Test Item Value Reference Range Interpretation Comments Creatine Kinase MB (test code = 05661-9) 0.40 0-5.0 [facility]wayTroponin I measurement by highly sensitive enzyme kltoivrncpk8561-64-27 08:00:00* Test Item Value Reference Range Interpretation Comments Troponin I (test code = 76760-7) 0.004 0-0.300 [facility] or plasma creatine kinase measurement (enzymatic activity/volume)2019-12-14 08:00:00* Test Item Value Reference Range Interpretation Comments Creatine Kinase (test code = 2157-6) 57 30-200 [facility] or plasma creatine kinase MB measurement (mass/volume)2019-12-14 08:00:00* Test Item Value Reference Range Interpretation Comments Creatine Kinase MB (test code = 70835-2) 0.40 0-5.0 [facility]wayTroponin I measurement by highly sensitive enzyme vogfiaruirs0628-74-20 08:00:00* Test Item Value Reference Range Interpretation Comments Troponin I (test code = 37937-8) 0.004 0-0.300 [facility] ParkwayUrine Opiates Vxmyyc9516-70-67 13:43:00* Test Item Value Reference Range Interpretation Comments Urine Opiates Screen (test code = 13227-8) NEGATIVE NEGATIVE ALL TESTS PERFORMED MANUALLY ON BIORAD TOX/SEE TEST --- 04/04/19 1340 ---OPIATE S previously reported as: N ALL TESTS PERFORMED MANUALLY ON BIORAD TOX/SEE TEST [facility]wayU[facility] Barbiturates Kjvnhk8645-82-15 13:43:00* Test Item Value Reference Range Interpretation Comments Urine Barbiturates Screen (test code = 601041837) NEGATIVE NEGA TIVE --- 04/04/19 1341 ---BARBITURATES previously reported as: N [facility] ParkwayUrine Phencyclidine Lcequq5274-34-08 13:43:00* Test Item Value Reference Range Interpretation Comments Urine Phencyclidine Screen (test code = 73659-0) NEGATIVE NEGAT ANGY --- 04/04/19 1341 ---PCP previously reported as: N [facility]wayUrine Amphetamines Aiyxow5116-55-61 13:43:00* Test Item Value Reference Range Interpretation Comments Urine Amphetamines Screen (test code = 99216-9) NEGATIVE NEGATI VE --- 04/04/19 1342 ---AMPHETAMINES previously reported as: N [facility]wayU[facility] Methamphetamines Ntcijx0123-35-83 13:43:00* Test Item Value Reference Range Interpretation Comments Urine Methamphetamines Screen (test code = Urine Metha mphetamines Screen) NEGATIVE NEGATIVE --- 04/04/19 1342 ---MAMP previously reported as: N [facility] ParkwayUrine Benzodiazepines Mqvjlg2188-81-81 13:43:00* Test Item Value Reference Range Interpretation Comments Urine Benzodiazepines Screen (test code = 71619-6) NEGATIVE NEG ATIVE --- 04/04/19 1342 ---BENZODIAZEPINES previously reported as: N [facility]wayU[facility] Cocaine Wonlcf0597-84-81 13:43:00* Test Item Value Reference Range Interpretation Comments Urine Cocaine Screen (test code = 3398-5) NEGATIVE NEGATIVE --- 04/04/191341 ---COCAINE [facility] reported as: N [facility] Cannabinoids Bezjkj9396-77-03 13:43:00* Test Item Value Reference Range Interpretation Comments Urine Cannabinoids Screen (test code = 38822-4) POSITIVE NEGATI VE H This test provides only a screen. Positive results should be repeated by a confi rmatory test. --- 04/04/19 134 ---THC previously reported as: P THESE RESU LTS ARE FOR MEDICAL TREATMENT ONLYTHIS REPORT CONTAINS UNCONFIRMED SCREENING RESULTS*POSITIVE RESULTS WILL BE CONFIRMED BY REFERENCE LAB UPON REQUEST CUT-OFFDRUG CLASS CONCENTRATION ng/mLAmphetamines 1000Methamphetamines 1000Co virgil 300Opiate 300Phencyclidine 25Cannabinoid 50Barbiturates 300Benzodi azepine 300Methadone 300[facility] CenterU[facility] Methadone Akpnwm8306-44-61 13:43:00* Test Item Value Reference Range Interpretation Comments Urine Methadone Screen (test code = 30939-5) POSITIVE NEGATIVE H This test provides only [...] 300Phencyclidine 25Cannabinoid 50Barbiturates 300 Benzodiazepine 300Methadone 300[facility] CenterCT ABDOMEN/PELVIS D6975-85-39 12:24:00 [facility] [address] [place] [address] Patient Name: QUYEN KIM MR #: [id number] : 1980 Age/Sex: 38/M Req #: [id number] Adm Physician: Ordered by: BRANDO MONTGOMERY MD Report #: [id number] Location: Room/Bed: Procedure: [id number] CT/CT ABDOMEN/PELVIS W Exam Date: 04/04/19 Exam [...] Color (test code = 5778-6) YELLOW YELLOW [facility]wayUrine Nwntqdt0097-20-96 11:38:00* Test Item Value Reference Range Interpretation Comments Urine Clarity (test code = 06202-6) CLEAR CLEAR [facility] ParkwayUrine Specific Oulxcvj3596-95-05 11:38:00 * Test Item Value Reference Range Interpretation Comments Urine Specific [place] (test code = 5811-5) 1.010 1.010-1.02 5 [facility]wayUrine iX3452-85-90 11:38:00* Test Item Value Reference Range Interpretation Comments Urine pH (test code = 69026-6) 6.5 5-7 [facility]wayUrine Leukocyte Xhtkborg1774-82-72 11:38:00* Test Item Value Reference Range Interpretation Comments Urine Leukocyte Esterase (test code = 5799-2) NEGATIVE NEGATIVE [facility]wayUrine Lnwhmtm9526-37-88 11:38:00* Test Item Value Reference Range Interpretation Comments Urine Nitrite (test code = 73490-4) NEGATIVE NEGATIVE [facility]wayUrine Fekesgo5247-89-96 11:38:00* Test Item Value Reference Range Interpretation Comments Urine Protein (test code = 5804-0) TRACE NEGATIVE H [facility]wayUrine Glucose (UA)2019-04-04 11:38:00* Test Item Value Reference Range Interpretation Comments Urine Glucose (UA) (test code = 2349-9) NEGATIVE NEGATIVE [facility] ParkwayUrine Ipawnjb8028-17-55 11:38:00* Test Item Value Reference Range Interpretation Comments Urine Ketones (test code = 80817-8) NEGATIVE NEGATIVE [facility] Ooijlvdtbvwd3514-23-89 11:38:00* Test Item Value Reference Range Interpretation Comments Urine Urobilinogen (test code = 54579-5) 0.2 0.2-1 [facility] Xoyabjkpt9841-29-73 11:38:00* Test Item Value Reference Range Interpretation Comments Urine Bilirubin (test code = 1978-6) NEGATIVE NEGATIVE [facility] Sfkpb4829-72-40 11:38:00* Test Item Value Reference Range Interpretation Comments Urine Blood (test code = 98227-4) NEGATIVE NEGATIVE [facility] ParkwayU[facility] XNP1464-88-36 11:38:00* Test Item Value Reference Range Interpretation Comments Urine WBC (test code = 5821-4) 0-5 0-5 [facility] PSX6207-73-90 11:38:00* Test Item Value Reference Range Interpretation Comments Urine RBC (test code = 94008-3) 0-5 0-5 [facility] Fgnxqzve9682-55-13 11:38:00* Test Item Value Reference Range Interpretation Comments Urine Bacteria (test code = 56949-5) RARE NONE [facility]wayUrine Epithelial Nbkng1188-65-93 11:38:00 * Test Item Value Reference Range Interpretation Comments Urine Epithelial Cells (test code = 57003-8) FEW NONE [facility] Edinburgodium Xpati2947-81-79 11:26:00* Test Item Value Reference Range Interpretation Comments Sodium Level (test code = 2951-2) 137 136-145 [facility]wayPotassium Vyfoi3541-50-53 11:26:00* Test Item Value Reference Range Interpretation Comments Potassium Level (test code = 2823-3) 3.7 3.5-5.1 [facility] ParkwayChloride Rnszz8375-86-49 11:26:00* Test Item Value Reference Range Interpretation Comments Chloride Level (test code = 2075-0) 105 98-107 [facility] ParkwayCarbon Dioxide Avxff8651-05-60 11:26:00* Test Item Value Reference Range Interpretation Comments Carbon Dioxide Level (test code = 2028-9) 20 22-29 L [facility] ParkwayAnion Vzw8544-07-27 11:26:00* Test Item Value Reference Range Interpretation Comments Anion Gap (test code = 54293-0) 15.7 8-16 [facility] ParkwayBlood Urea Httergwn1079-17-51 11:26:00* Test Item Value Reference Range Interpretation Comments Blood Urea Nitrogen (test code = 3094-0) 10 7- [facility] ParkwayCreatinine2019-12-03 11:26:00* Test Item Value Reference Range Interpretation Comments Creatinine (test code = 2160-0) 1.35 0.72-1.25 H [facility] ParkwayBUN/Creatinine Mocel8867-90-65 11:26:00* Test Item Value Reference Range Interpretation Comments BUN/Creatinine Ratio (test code = 3097-3) 7 6- [facility] ParkwayEstimat Glomerular Filtration Rate 2019-04-04 11:26:00* Test Item Value Reference Range Interpretation Comments Estimat Glomerular Filtration Rate (test code = 227199783) > 60 >60 Ranges were taken from the National Kidney Disease Education Program and the [facility] Kid[facility] Foundation literature.Reference ranges:60 or greater: Qvendb93-37 ( for 3 consecutive months): Chronic kidney disease 15 or less: Kidney failureWise Health Surgical Hospital at ParkwayGlucose Gnawh0274-13-12 11:26:00* Test Item Value Reference Range Interpretation Comments Glucose Level (test code = UVB5244) 106 74-118 [facility] ParkwayCalcium Thenk7101-00-99 11:26:00* Test Item Value Reference Range Interpretation Comments Calcium Level (test code = 34693-7) 9.8 8.4-10.2 [facility] ParkwayMagnesium Vubct3171-65-43 11:26:00* Test Item Value Reference Range Interpretation Comments Magnesium Level (test code = 48429-5) 1.8 1.3-2.1 [facility] ParkwayTotal Fpcfeqepg0447-96-23 11:26:00* Test Item Value Reference Range Interpretation Comments Total Bilirubin (test code = 1975-2) 0.7 0.2-1.2 [facility] ParkwayAspartate Amino Transf (AST/SGOT) 2019-04-04 11:26:00* Test Item Value Reference Range Interpretation Comments Aspartate Amino Transf (AST/SGOT) (test code = Aspartate Amino Transf (AST/SGOT)) 15 5-34 [facility] ParkwayAlanine Aminotransferase (ALT/SGPT) 2019-04-04 11:26:00* Test Item Value Reference Range Interpretation Comments Alanine Aminotransferase (ALT/SGPT) (test code = 1742-6) 19 0-55 [facility] ParkwayTotal Rraguiy8597-34-98 11:26:00* Test Item Value Reference Range Interpretation Comments Total Protein (test code = 2885-2) 8.2 6.5-8.1 H [facility] ParkwayAlbumin2019-12-03 11:26:00* Test Item Value Reference Range Interpretation Comments Albumin (test code = 1751-7) 4.2 3.5-5.0 [facility] ParkwayGlobulin2019-12-03 11:26:00* Test Item Value Reference Range Interpretation Comments Globulin (test code = 45136-1) 4.0 2.3-3.5 H [facility] ParkwayAlbumin/Globulin Jzisa6626-94-12 11:26:00 * Test Item Value Reference Range Interpretation Comments Albumin/Globulin Ratio (test code = 1759-0) 1.1 0.8-2.0 [facility] ParkwayAlkaline Rqmqjbobpcu8072-76-93 11:26:00* Test Item Value Reference Range Interpretation Comments Alkaline Phosphatase (test code = 6768-6) 76 40-150 [facility] ParkwayCreatine Ppmcye9076-24-80 11:26:00* Test Item Value Reference Range Interpretation Comments Creatine Kinase (test code = 2157-6) 77 30-200 [facility] ParkwayCreatine Kinase NH6015-03-19 11:26:00* Test Item Value Reference Range Interpretation Comments Creatine Kinase MB (test code = 19396-5) 0.60 0-5.0 [facility] ParkwayTroponin K8905-58-92 11:26:00* Test Item Value Reference Range Interpretation Comments Troponin I (test code = SYK4343) 0.068 0-0.300 [facility] ParkwayAmylase Aaptb9003-41-79 11:26:00* Test Item Value Reference Range Interpretation Comments Amylase Level (test code = 1798-8) 90 25-125 [facility] ParkwayLipase2019-12-03 11:26:00* Test Item Value Reference Range Interpretation Comments Lipase (test code = 3040-3) 16 8-78 [facility] ParkwayLactic Acid Jpprh7126-08-60 11:25:00* Test Item Value Reference Range Interpretation Comments Lactic Acid Level (test code = Lactic Acid Level) 1.2 0.5- 2.0 [facility] ParkwayProthrombin Jfkw3478-06-60 10:58:00* Test Item Value Reference Range Interpretation Comments Prothrombin Time (test code = 5902-2) 13.2 11.9-14.5 [facility] ParkwayProthromb Time International Ratio 2019-04-04 10:58:00* Test Item Value Reference Range Interpretation Comments Prothromb Time International Ratio (test code = 6301-6) 0.95 Oral Anticoagulant Therapy INR Values:1. Low Intensity Therapy 1.5 - 2.02 . Moderate Intensity Therapy 2.0 - 3.03. High Intensity Therapy(1) 2.5 - 3. 54. High Intensity Therapy(2) 3.0 - 4.05. Panic Value INR > 5.0 [facility] ParkwayActivated Partial Thromboplast Time 2019-04-04 10:58:00* Test Item Value Reference Range Interpretation Comments Activated Partial Thromboplast Time (test code = 86628-2) 29.7 23.8-35.5 [facility] ParkwayCHEST SINGLE (PORTABLE)2019-04-04 10:27:00 [facility] [address] [address] Patient Name: QUYEN KIM MR #: [id number] : 1980 Age/Sex: 38/M Req #: [id number] Adm Physician: Ordered by: BRANDO MONTGOMERY MD Report #: [id number] Location: ER Room/Bed: Procedure: [id number] DX/CH EST SINGLE (PORTABLE) Exam Date: 04/04/19 [...] COPY TO: BRANDO MONTGOMERY MD White Blood Vptik3218-78-38 10:10:00* Test Item Value Reference Range Interpretation Comments White Blood Count (test code = 6690-2) 8.03 4.8-10.8 [facility] ParkwayRed Blood Rhnbc6985-98-65 10:10:00* Test Item Value Reference Range Interpretation Comments Red Blood Count (test code = 789-8) 3.79 4.3-5.7 L [facility] ParkwayHemoglobin2019-12-03 10:10:00* Test Item Value Reference Range Interpretation Comments Hemoglobin (test code = 45703-4) 12.3 14.0-18.0 L [facility] ParkwayHematocrit2019-12-03 10:10:00* Test Item Value Reference Range Interpretation Comments Hematocrit (test code = 4544-3) 36.2 38.2-49.6 L [facility] ParkwayMean Corpuscular Eulnbc5257-27-86 10:10:00* Test Item Value Reference Range Interpretation Comments Mean Corpuscular Volume (test code = 787-2) 95.5 81-99 [facility] ParkwayMean Corpuscular Vwenhlkzli3998-45-50 10:10:00* Test Item Value Reference Range Interpretation Comments Mean Corpuscular Hemoglobin (test code = 785-6) 32.5 28-32 H [facility] ParkwayMean Corpuscular Hemoglobin Concent 2019-04-04 10:10:00* Test Item Value Reference Range Interpretation Comments Mean Corpuscular Hemoglobin Concent (test code = 786-4) 34.0 31-35 [facility] ParkwayRed Cell Distribution Amqmb5074-59-64 10:10:00* Test Item Value Reference Range Interpretation Comments Red Cell Distribution Width (test code = 64479-8) 12.6 11.7 -14.4 [facility] ParkwayPlatelet Rurja9860-13-13 10:10:00* Test Item Value Reference Range Interpretation Comments Platelet Count (test code = 777-3) 260 140-360 [facility] ParkwayNeutrophils (%) (Auto)2019-04-04 10:10:00 * Test Item Value Reference Range Interpretation Comments Neutrophils (%) (Auto) (test code = 19487-7) 57.8 38.7-80.0 [facility] ParkwayLymphocytes (%) (Auto)2019-04-04 10:10:00 * Test Item Value Reference Range Interpretation Comments Lymphocytes (%) (Auto) (test code = 736-9) 33.6 18.0-39.1 [facility] ParkwayMonocytes (%) (Auto)2019-04-04 10:10:00* Test Item Value Reference Range Interpretation Comments Monocytes (%) (Auto) (test code = 5905-5) 7.1 4.4-11.3 [facility]wayEosinophils (%) (Auto)2019-04-04 10:10:00 * Test Item Value Reference Range Interpretation Comments Eosinophils (%) (Auto) (test code = 713-8) 0.6 0.0-6.0 [facility] ParkwayBasophils (%) (Auto)2019-04-04 10:10:00* Test Item Value Reference Range Interpretation Comments Basophils (%) (Auto) (test code = 706-2) 0.5 0.0-1.0 [facility] ParkwayIM GRANULOCYTES %2019-04-04 10:10:00* Test Item Value Reference Range Interpretation Comments IM GRANULOCYTES % (test code = IM GRANULOCYTES %) 0.4 0.0- 1.0 [facility] ParkwayNeutrophils # (Auto)2019-04-04 10:10:00* Test Item Value Reference Range Interpretation Comments Neutrophils # (Auto) (test code = 751-8) 4.6 2.1-6.9 [facility] ParkwayLymphocytes # (Auto)2019-04-04 10:10:00* Test Item Value Reference Range Interpretation Comments Lymphocytes # (Auto) (test code = 44909-0) 2.7 1.0-3.2 [facility] ParkwayMonocytes # (Auto)2019-04-04 10:10:00* Test Item Value Reference Range Interpretation Comments Monocytes # (Auto) (test code = 742-7) 0.6 0.2-0.8 [facility] ParkwayEosinophils # (Auto)2019-04-04 10:10:00* Test Item Value Reference Range Interpretation Comments Eosinophils # (Auto) (test code = 711-2) 0.1 0.0-0.4 [facility] ParkwayBasophils # (Auto)2019-04-04 10:10:00* Test Item Value Reference Range Interpretation Comments Basophils # (Auto) (test code = 704-7) 0.0 0.0-0.1 [facility] ParkwayAbsolute Immature Granulocyte (auto 2019-04-04 10:10:00* Test Item Value Reference Range Interpretation Comments Absolute Immature Granulocyte (auto (jourdan t code = Absolute Immature Granulocyte (auto) 0.03 0-0.1 [facility] ParkwayFluoroscopic procedure less than one hour slgxrnfi0032-24-40 09:40:00* Test Item Value Reference Range Interpretation Comments Lactic Acid Level (test code = Lactic Acid Level) 1.2 0.5- 2.0 [facility]gerum or plasma magnesium measurement (mass/volume)2019-04-04 09:40:00* Test Item Value Reference Range Interpretation Comments Magnesium Level (test code = 75940-8) 1.8 1.3-2.1 [facility] Edinburgerum or plasma amylase measurement (enzymatic activity/volume)2019-04-04 09:40:00* Test Item Value Reference Range Interpretation Comments Amylase Level (test code = 1798-8) 90 25-125 [facility] ParkwayFluoroscopic procedure less than one hour zjehalts1194-40-87 09:40:00* Test Item Value Reference Range Interpretation Comments Lactic Acid Level (test code = Lactic Acid Level) 1.2 0.5- 2.0 [facility] Edinburgerum or plasma magnesium measurement (mass/volume)2019-04-04 09:40:00* Test Item Value Reference Range Interpretation Comments Magnesium Level (test code = 05046-3) 1.8 1.3-2.1 [facility]inburgerum or plasma amylase measurement (enzymatic activity/volume)2019-04-04 09:40:00* Test Item Value Reference Range Interpretation Comments Amylase Level (test code = 1798-8) 90 25-125 [facility] ParkwayFluoroscopic procedure less than one hour quoungjq3787-97-16 09:40:00* Test Item Value Reference Range Interpretation Comments Lactic Acid Level (test code = Lactic Acid Level) 1.2 0.5- 2.0 [facility]gerum or plasma magnesium measurement (mass/volume)2019-04-04 09:40:00* Test Item Value Reference Range Interpretation Comments Magnesium Level (test code = 41236-7) 1.8 1.3-2.1 [facility]gerum or plasma amylase measurement (enzymatic activity/volume)2019-04-04 09:40:00* Test Item Value Reference Range Interpretation Comments Amylase Level (test code = 1798-8) 90 25-125 [facility] ParkwayFluoroscopic procedure less than one hour dcwtsmaq7502-73-71 09:40:00* Test Item Value Reference Range Interpretation Comments Lactic Acid Level (test code = Lactic Acid Level) 1.2 0.5- 2.0 [facility]gerum or plasma magnesium measurement (mass/volume)2019-04-04 09:40:00* Test Item Value Reference Range Interpretation Comments Magnesium Level (test code = 70278-5) 1.8 1.3-2.1 [facility]gerum or plasma amylase measurement (enzymatic activity/volume)2019-04-04 09:40:00* Test Item Value Reference Range Interpretation Comments Amylase Level (test code = 1798-8) 90 25-125 [facility] ParkwayFluoroscopic procedure less than one hour cqjkioce4800-78-11 09:40:00* Test Item Value Reference Range Interpretation Comments Lactic Acid Level (test code = Lactic Acid Level) 1.2 0.5- 2.0 [facility] ParkwayProthrombin time (PT) in platelet poor plasma by coagulation patqq0937-02-54 08:53:00* Test Item Value Reference Range Interpretation Comments Prothrombin Time (test code = 5902-2) 13.2 11.9-14.5 [facility] ParkwayINR in Platelet poor plasma by Coagulation objor8372-50-04 08:53:00* Test Item Value Reference Range Interpretation Comments Prothromb Time International Ratio (test code = 6301-6) 0.95 Oral Anticoagulant Therapy INR Values:1. Low Intensity Therapy 1.5 - 2.02 . Moderate Intensity Therapy 2.0 - 3.03. High Intensity Therapy(1) 2.5 - 3. 54. High Intensity Therapy(2) 3.0 - 4.05. Panic Value INR > 5.0 [facility] ParkwayActivated partial thromboplastin time (aPTT) in platelet poor plasma by coagulation jgigf3598-55-03 08:53:00* Test Item Value Reference Range Interpretation Comments Activated Partial Thromboplast Time (test code = 09264-3) 29.7 23.8-35.5 [facility] tsnkydd7719-02-11 08:53:00* Test Item Value Reference Range Interpretation Comments Blood Culture (test code = 77414464) NO GROWTH AFTER 5 DAYS, FINAL REPORT [facility] ParkwayProthrombin time (PT) in platelet poor plasma by coagulation zueoq6079-45-87 08:53:00* Test Item Value Reference Range Interpretation Comments Prothrombin Time (test code = 5902-2) 13.2 11.9-14.5 [facility] ParkwayINR in Platelet poor plasma by Coagulation ycryl9379-78-65 08:53:00* Test Item Value Reference Range Interpretation Comments Prothromb Time International Ratio (test code = 6301-6) 0.95 Oral Anticoagulant Therapy INR Values:1. Low Intensity Therapy 1.5 - 2.02 . Moderate Intensity Therapy 2.0 - 3.03. High Intensity Therapy(1) 2.5 - 3. 54. High Intensity Therapy(2) 3.0 - 4.05. Panic Value INR > 5.0 [facility] ParkwayActivated partial thromboplastin time (aPTT) in platelet poor plasma by coagulation gotpb2451-23-12 08:53:00* Test Item Value Reference Range Interpretation Comments Activated Partial Thromboplast Time (test code = 31822-5) 29.7 23.8-35.5 [facility] qxrvzja1985-83-84 08:53:00* Test Item Value Reference Range Interpretation Comments Blood Culture (test code = 28444856) NO GROWTH AFTER 5 DAYS, FINAL REPORT [facility]wayProthrombin time (PT) in platelet poor plasma by coagulation ixdfb9339-47-34 08:53:00* Test Item Value Reference Range Interpretation Comments Prothrombin Time (test code = 5902-2) 13.2 11.9-14.5 [facility]wayINR in Platelet poor plasma by Coagulation zjooe9067-64-17 08:53:00* Test Item Value Reference Range Interpretation Comments Prothromb Time International Ratio (test code = 6301-6) 0.95 Oral Anticoagulant Therapy INR Values:1. Low Intensity Therapy 1.5 - 2.02 . Moderate Intensity Therapy 2.0 - 3.03. High Intensity Therapy(1) 2.5 - 3. 54. High Intensity Therapy(2) 3.0 - 4.05. Panic Value INR > 5.0 [facility] ParkwayActivated partial thromboplastin time (aPTT) in platelet poor plasma by coagulation mjabu9625-25-04 08:53:00* Test Item Value Reference Range Interpretation Comments Activated Partial Thromboplast Time (test code = 66500-7) 29.7 23.8-35.5 [facility] ParkwayBlood mrbptje6252-16-77 08:53:00* Test Item Value Reference Range Interpretation Comments Blood Culture (test code = 63385647) NO GROWTH AFTER 5 DAYS, FINAL REPORT [facility] ParkwayProthrombin time (PT) in platelet poor plasma by coagulation jpwhj2100-37-59 08:53:00* Test Item Value Reference Range Interpretation Comments Prothrombin Time (test code = 5902-2) 13.2 11.9-14.5 [facility]wayINR in Platelet poor plasma by Coagulation ffqvw9500-89-75 08:53:00* Test Item Value Reference Range Interpretation Comments Prothromb Time International Ratio (test code = 6301-6) 0.95 Oral Anticoagulant Therapy INR Values:1. Low Intensity Therapy 1.5 - 2.02 . Moderate Intensity Therapy 2.0 - 3.03. High Intensity Therapy(1) 2.5 - 3. 54. High Intensity Therapy(2) 3.0 - 4.05. Panic Value INR > 5.0 [facility] ParkwayActivated partial thromboplastin time (aPTT) in platelet poor plasma by coagulation ftpod8311-17-71 08:53:00* Test Item Value Reference Range Interpretation Comments Activated Partial Thromboplast Time (test code = 69876-0) 29.7 23.8-35.5 [facility] gcnojdo9330-89-79 08:53:00* Test Item Value Reference Range Interpretation Comments Blood Culture (test code = 90040830) NO GROWTH AFTER 5 DAYS, FINAL REPORT [facility] uvtmuos3554-16-62 08:53:00* Test Item Value Reference Range Interpretation Comments Blood Culture (test code = 33538117) NO GROWTH AFTER 5 DAYS, FINAL REPORT [facility] ParkwayTissue Transglutaminase IgA Ri5116-95-60 06:10:00* Test Item Value Reference Range Interpretation Comments Tissue Transglutaminase IgA Ab (test code = 00519-2) <2 0 -3 Negative 0 - 3 Weak Positive 4 - 10 Positive >10 Tissue Transglutaminase (tTG) has been identified as the endomysial antigen. Studies have demonstr- ated that endomysial IgA antibodies have over 99% specif icity for gluten sensitive enteropathy.[facility] Immunoglobulin [id number] 06:10:00* Test Item Value Reference Range Interpretation Comments Immunoglobulin A (test code = 2458-8) 150 90-386 Performed at: [facility] [address] [id number] Employee Benefits Manager: Lai Olson MD, Phone: [phone] at: - [facility] [address] [id number] Director: Alejo Malin MD, Ph one: [phone] Health Surgical Hospital at ParkwayEndomysial IgA Antibody 2019-03-21 06:10:00* Test Item Value Reference Range Interpretation Comments Endomysial IgA Antibody (test code = 66108-9) Negative Negative [facility] ParkwayTise Transglutaminase IgA Lj9132-84-38 06:10:00* Test Item Value Reference Range Interpretation Comments Tissue Transglutaminase IgA Ab (test code = 81268-2) <2 0 -3 Negative 0 - 3 Weak Positive 4 - 10 Positive >10 Tissue Transglutaminase (tTG) has been identified as the endomysial antigen. Studies have demonstr- ated that endomysial IgA antibodies have over 99% specif icity for gluten sensitive enteropathy.[facility] Immunoglobulin C1106-20-19 06:10:00* Test Item Value Reference Range Interpretation Comments Immunoglobulin A (test code = 2458-8) 150 90-386 Performed at: [address] [id number] Employee Benefits Manager: Lai Olson MD, Phone: [phone] at: [address] [id number] Director: Alejo Malin MD, Ph one: [phone] Health Surgical Hospital at ParkwayEndomysial IgA Antibody 2019-03-21 06:10:00* Test Item Value Reference Range Interpretation Comments Endomysial IgA Antibody (test code = 44454-5) Negative Negative [facility] Dwhrryd1506-74-29 14:11:00* Test Item Value Reference Range Interpretation Comments Blood Culture (test code = 51833163) NO GROWTH AFTER 5 DAYS, FINAL REPORT [facility] Hvbgwma5780-67-57 14:11:00* Test Item Value Reference Range Interpretation Comments Blood Culture (test code = 35031473) NO GROWTH AFTER 5 DAYS, FINAL REPORT [facility] ParkwayRB Folate Cxbdyzfoex0011-46-91 20:40:00 * Test Item Value Reference Range Interpretation Comments RBC Folate Hemolysate (test code = 2282-2) 268.2 Not Estab. [facility] ParkwayHematocrit2019-11-15 20:40:00* Test Item Value Reference Range Interpretation Comments Hematocrit (test code = 4544-3) 29.1 37.5-51.0 L [facility] Folate Arkblwpoga4825-32-36 20:40:00 * Test Item Value Reference Range Interpretation Comments RBC Folate Hemolysate (test code = 2283-0) 922 >498 Performed at: [address] [id number] Director: Alejo Malin MD, Phone: [phone] Health Surgical Hospital at ParkwayC-Reactive Zdrunfn8021-55-04 20:40:00* Test Item Value Reference Range Interpretation Comments C-Reactive Protein (test code = 1987-5) 3 0-10 Performed at: [address] [id number] Director: Aleoj Malin MD, Phone: [phone] Regional Medical Center Folate Sixjkquflt6462-72-99 20:40:00* Test Item Value Reference Range Interpretation Comments RBC Folate Hemolysate (test code = 2282-2) 268.2 Not Estab. [facility] ParkwayHematocrit2019-11-15 20:40:00* Test Item Value Reference Range Interpretation Comments Hematocrit (test code = 4544-3) 29.1 37.5-51.0 L [facility] Folate Gijeyajfbs4592-95-15 20:40:00 * Test Item Value Reference Range Interpretation Comments RBC Folate Hemolysate (test code = 2283-0) 922 >498 Performed at: [address] [id number] Director: Alejo Malin MD, Phone: [phone] Health Surgical Hospital at ParkwayC-Reactive Dwksxbs9459-55-15 20:40:00* Test Item Value Reference Range Interpretation Comments C-Reactive Protein (test code = 1987-5) 3 0-10 Performed at: [address] [id number] Director: Alejo Malin MD, Phone: [phone] Health Surgical Hospital at ParkwayBlood Bumxtzb0190-89-22 14:11:00* Test Item Value Reference Range Interpretation Comments Blood Culture (test code = 18805385) NO GROWTH AFTER 72 HOURS [facility] ParkwayDifferential Total Cells Counted 2019-03-16 10:54:00* Test Item Value Reference Range Interpretation Comments Differential Total Cells Counted (test code = Differen tial Total Cells Counted) 100 [facility] ParkwayNeutrophils % (Manual)2019-03-16 10:54:00 * Test Item Value Reference Range Interpretation Comments Neutrophils % (Manual) (test code = 28331-4) 42 40-74 [facility] ParkwayLymphocytes % (Manual)2019-03-16 10:54:00 * Test Item Value Reference Range Interpretation Comments Lymphocytes % (Manual) (test code = 737-7) 49 19-48 H [facility] ParkwayMonocytes % (Manual)2019-03-16 10:54:00* Test Item Value Reference Range Interpretation Comments Monocytes % (Manual) (test code = 744-3) 5 3.4-9.0 [facility] ParkwayReactive Dhtocimmgws6346-42-57 10:54:00* Test Item Value Reference Range Interpretation Comments Reactive Lymphocytes (test code = 33182-7) 4 [facility] ParkwayPlatelet Ygletide3772-46-82 10:54:00* Test Item Value Reference Range Interpretation Comments Platelet Estimate (test code = 03873-8) ADEQUATE [facility] ParkwayPlatelet Morphology Tfvucan7808-04-16 10:54:00* Test Item Value Reference Range Interpretation Comments Platelet Morphology Comment (test code = 67120-6) NORMAL [facility] ParkwayRed Cell Morphology Huguduw6130-46-93 10:54:00* Test Item Value Reference Range Interpretation Comments Red Cell Morphology Comment (test code = 6742-1) NORMAL [facility] ParkwayDifferential Total Cells Counted 2019-03-16 10:54:00* Test Item Value Reference Range Interpretation Comments Differential Total Cells Counted (test code = Differclarice tial Total Cells Counted) 100 [facility] ParkwayNeutrophils % (Manual)2019-03-16 10:54:00 * Test Item Value Reference Range Interpretation Comments Neutrophils % (Manual) (test code = 92557-2) 42 40-74 [facility] ParkwayLymphocytes % (Manual)2019-03-16 10:54:00 * Test Item Value Reference Range Interpretation Comments Lymphocytes % (Manual) (test code = 737-7) 49 19-48 H [facility] ParkwayMonocytes % (Manual)2019-03-16 10:54:00* Test Item Value Reference Range Interpretation Comments Monocytes % (Manual) (test code = 744-3) 5 3.4-9.0 [facility] ParkwayReactive Gybmiaumcay1513-57-36 10:54:00* Test Item Value Reference Range Interpretation Comments Reactive Lymphocytes (test code = 93458-6) 4 [facility] ParkwayPlatelet Jiyazphn4776-41-74 10:54:00* Test Item Value Reference Range Interpretation Comments Platelet Estimate (test code = 21081-3) ADEQUATE [facility] ParkwayPlatelet Morphology Wmmbjtb7618-54-64 10:54:00* Test Item Value Reference Range Interpretation Comments Platelet Morphology Comment (test code = 56135-6) NORMAL [facility] ParkwayRed Cell Morphology Lwxadcw6794-41-31 10:54:00* Test Item Value Reference Range Interpretation Comments Red Cell Morphology Comment (test code = 6742-1) NORMAL [facility] ParkwayDifferential Total Cells Counted 2019-03-16 10:54:00* Test Item Value Reference Range Interpretation Comments Differential Total Cells Counted (test code = Differclarice tial Total Cells Counted) 100 [facility] ParkwayNeutrophils % (Manual)2019-03-16 10:54:00 * Test Item Value Reference Range Interpretation Comments Neutrophils % (Manual) (test code = 63071-8) 42 40-74 [facility] ParkwayLymphocytes % (Manual)2019-03-16 10:54:00 * Test Item Value Reference Range Interpretation Comments Lymphocytes % (Manual) (test code = 737-7) 49 19-48 H [facility]wayMonocytes % (Manual)2019-03-16 10:54:00* Test Item Value Reference Range Interpretation Comments Monocytes % (Manual) (test code = 744-3) 5 3.4-9.0 [facility] ParkwayReactive Xkutfokocvx8546-21-67 10:54:00* Test Item Value Reference Range Interpretation Comments Reactive Lymphocytes (test code = 05716-8) 4 [facility] ParkwayPlatelet Lfeyuexc5755-40-14 10:54:00* Test Item Value Reference Range Interpretation Comments Platelet Estimate (test code = 60064-8) ADEQUATE [facility] ParkwayPlatelet Morphology Qgecgzh8417-64-98 10:54:00* Test Item Value Reference Range Interpretation Comments Platelet Morphology Comment (test code = 26823-3) NORMAL [facility] ParkwayRed Cell Morphology Sezryxe5627-56-52 10:54:00* Test Item Value Reference Range Interpretation Comments Red Cell Morphology Comment (test code = 6742-1) NORMAL [facility]burgodium Hmzat0090-18-88 08:19:00* Test Item Value Reference Range Interpretation Comments Sodium Level (test code = 2951-2) 138 136-145 [facility] ParkwayPotassium Gdnjd8704-83-42 08:19:00* Test Item Value Reference Range Interpretation Comments Potassium Level (test code = 2823-3) 3.3 3.5-5.1 L [facility] ParkwayChloride Mmvaq0573-50-12 08:19:00* Test Item Value Reference Range Interpretation Comments Chloride Level (test code = 2075-0) 107 98-107 [facility] ParkwayCarbon Dioxide Jwwqk2585-61-11 08:19:00* Test Item Value Reference Range Interpretation Comments Carbon Dioxide Level (test code = 2028-9) 22 22-29 [facility] ParkwayAnion Xxg5418-70-49 08:19:00* Test Item Value Reference Range Interpretation Comments Anion Gap (test code = 87311-6) 12.3 8-16 [facility] ParkwayBlood Urea Frbwuzyi3320-26-73 08:19:00* Test Item Value Reference Range Interpretation Comments Blood Urea Nitrogen (test code = 3094-0) < 5 7-26 L [facility] ParkwayCreatinine2019-11-14 08:19:00* Test Item Value Reference Range Interpretation Comments Creatinine (test code = 2160-0) 1.20 0.72-1.25 [facility] ParkwayBUN/Creatinine Abgvz7587-85-56 08:19:00* Test Item Value Reference Range Interpretation Comments BUN/Creatinine Ratio (test code = 3097-3) 4 6-25 L [facility] ParkwayEstimat Glomerular Filtration Rate 2019-03-16 08:19:00* Test Item Value Reference Range Interpretation Comments Estimat Glomerular Filtration Rate (test code = 485331333) > 60 >60 Ranges were taken from the National Kidney Disease Education Program and the [place] ional [employer] literature.Reference ranges:60 or greater: Kbkiwo98-22 ( for 3 consecutive months): Chronic kidney disease 15 or less: Kidney failureWise Health Surgical Hospital at ParkwayGlucose Pkshs1722-37-11 08:19:00* Test Item Value Reference Range Interpretation Comments Glucose Level (test code = JHP9110) 92 74-118 [facility] ParkwayCalcium Ekskm6110-97-68 08:19:00* Test Item Value Reference Range Interpretation Comments Calcium Level (test code = 93759-3) 9.0 8.4-10.2 [facility]burgodium Fnlxw5588-44-48 08:19:00* Test Item Value Reference Range Interpretation Comments Sodium Level (test code = 2951-2) 138 136-145 [facility] ParkwayPotassium Upmcc8358-86-45 08:19:00* Test Item Value Reference Range Interpretation Comments Potassium Level (test code = 2823-3) 3.3 3.5-5.1 L [facility] ParkwayChloride Ezlfx1332-79-14 08:19:00* Test Item Value Reference Range Interpretation Comments Chloride Level (test code = 2075-0) 107 98-107 [facility] ParkwayCarbon Dioxide Qtbsk0380-04-60 08:19:00* Test Item Value Reference Range Interpretation Comments Carbon Dioxide Level (test code = 2028-9) 22 22-29 [facility] ParkwayAnion Zth4562-53-99 08:19:00* Test Item Value Reference Range Interpretation Comments Anion Gap (test code = 68079-8) 12.3 8-16 [facility] ParkwayBlood Urea Vnwftjig2874-55-36 08:19:00* Test Item Value Reference Range Interpretation Comments Blood Urea Nitrogen (test code = 3094-0) < 5 7-26 L [facility] ParkwayCreatinine2019-11-14 08:19:00* Test Item Value Reference Range Interpretation Comments Creatinine (test code = 2160-0) 1.20 0.72-1.25 [facility] ParkwayBUN/Creatinine Oujmf5429-27-74 08:19:00* Test Item Value Reference Range Interpretation Comments BUN/Creatinine Ratio (test code = 3097-3) 4 6-25 L [facility] ParkwayEstimat Glomerular Filtration Rate 2019-03-16 08:19:00* Test Item Value Reference Range Interpretation Comments Estimat Glomerular Filtration Rate (test code = 995773860) > 60 >60 Ranges were taken from the National Kidney Disease Education Program and the [facility] Foundation literature.Reference ranges:60 or greater: Jmxpxv83-01 ( for 3 consecutive months): Chronic kidney disease 15 or less: Kidney failureW[facility] Health Surgical Hospital at ParkwayGlucose Lhhzv4116-46-65 08:19:00* Test Item Value Reference Range Interpretation Comments Glucose Level (test code = KZV6390) 92 74-118 [facility] ParkwayCalcium Sibkv3581-03-10 08:19:00* Test Item Value Reference Range Interpretation Comments Calcium Level (test code = 59742-7) 9.0 8.4-10.2 [facility] ParkwayWhite Blood Xpxwo3014-82-26 05:34:00* Test Item Value Reference Range Interpretation Comments White Blood Count (test code = 6690-2) 3.70 4.8-10.8 L [facility] ParkwayRed Blood Paqcq8581-80-69 05:34:00* Test Item Value Reference Range Interpretation Comments Red Blood Count (test code = 789-8) 3.06 4.3-5.7 L [facility] ParkwayHemoglobin2019-11-14 05:34:00* Test Item Value Reference Range Interpretation Comments Hemoglobin (test code = 72258-3) 9.9 14.0-18.0 L [facility] ParkwayHematocrit2019-11-14 05:34:00* Test Item Value Reference Range Interpretation Comments Hematocrit (test code = 4544-3) 29.2 38.2-49.6 L [facility] ParkwayMean Corpuscular Gktvme0994-99-24 05:34:00* Test Item Value Reference Range Interpretation Comments Mean Corpuscular Volume (test code = 787-2) 95.4 81-99 [facility] ParkwayMean Corpuscular Uvwhakoqae5875-13-53 05:34:00* Test Item Value Reference Range Interpretation Comments Mean Corpuscular Hemoglobin (test code = 785-6) 32.4 28-32 H [facility] ParkwayMean Corpuscular Hemoglobin Concent 2019-03-16 05:34:00* Test Item Value Reference Range Interpretation Comments Mean Corpuscular Hemoglobin Concent (test code = 786-4) 33.9 31-35 [facility] ParkwayRed Cell Distribution Xifpe5318-17-27 05:34:00* Test Item Value Reference Range Interpretation Comments Red Cell Distribution Width (test code = 85525-4) 11.7 11.7 -14.4 [facility] ParkwayPlatelet Nykcc2756-22-53 05:34:00* Test Item Value Reference Range Interpretation Comments Platelet Count (test code = 777-3) 174 140-360 [facility] ParkwayNeutrophils (%) (Auto)2019-03-16 05:34:00 * Test Item Value Reference Range Interpretation Comments Neutrophils (%) (Auto) (test code = 03768-7) 41.6 38.7-80.0 [facility] ParkwayLymphocytes (%) (Auto)2019-03-16 05:34:00 * Test Item Value Reference Range Interpretation Comments Lymphocytes (%) (Auto) (test code = 736-9) 47.6 18.0-39.1 H [facility] ParkwayMonocytes (%) (Auto)2019-03-16 05:34:00* Test Item Value Reference Range Interpretation Comments Monocytes (%) (Auto) (test code = 5905-5) 8.4 4.4-11.3 [facility]wayEosinophils (%) (Auto)2019-03-16 05:34:00 * Test Item Value Reference Range Interpretation Comments Eosinophils (%) (Auto) (test code = 713-8) 1.6 0.0-6.0 [facility] ParkwayBasophils (%) (Auto)2019-03-16 05:34:00* Test Item Value Reference Range Interpretation Comments Basophils (%) (Auto) (test code = 706-2) 0.3 0.0-1.0 [facility] ParkwayIM GRANULOCYTES %2019-03-16 05:34:00* Test Item Value Reference Range Interpretation Comments IM GRANULOCYTES % (test code = IM GRANULOCYTES %) 0.5 0.0- 1.0 [facility] ParkwayNeutrophils # (Auto)2019-03-16 05:34:00* Test Item Value Reference Range Interpretation Comments Neutrophils # (Auto) (test code = 751-8) 1.5 2.1-6.9 L [facility] ParkwayLymphocytes # (Auto)2019-03-16 05:34:00* Test Item Value Reference Range Interpretation Comments Lymphocytes # (Auto) (test code = 52797-9) 1.8 1.0-3.2 [facility] ParkwayMonocytes # (Auto)2019-03-16 05:34:00* Test Item Value Reference Range Interpretation Comments Monocytes # (Auto) (test code = 742-7) 0.3 0.2-0.8 [facility]wayEosinophils # (Auto)2019-03-16 05:34:00* Test Item Value Reference Range Interpretation Comments Eosinophils # (Auto) (test code = 711-2) 0.1 0.0-0.4 [facility] ParkwayBasophils # (Auto)2019-03-16 05:34:00* Test Item Value Reference Range Interpretation Comments Basophils # (Auto) (test code = 704-7) 0.0 0.0-0.1 [facility] ParkwayAbsolute Immature Granulocyte (auto 2019-03-16 05:34:00* Test Item Value Reference Range Interpretation Comments Absolute Immature Granulocyte (auto (jourdan t code = Absolute Immature Granulocyte (auto) 0.02 0-0.1 [facility] ParkwayWhite Blood Oztuj7549-97-80 05:34:00* Test Item Value Reference Range Interpretation Comments White Blood Count (test code = 6690-2) 3.70 4.8-10.8 L [facility] ParkwayRed Blood Pzwdu0939-18-86 05:34:00* Test Item Value Reference Range Interpretation Comments Red Blood Count (test code = 789-8) 3.06 4.3-5.7 L [facility] ParkwayHemoglobin2019-11-14 05:34:00* Test Item Value Reference Range Interpretation Comments Hemoglobin (test code = 53934-5) 9.9 14.0-18.0 L [facility] ParkwayHematocrit2019-11-14 05:34:00* Test Item Value Reference Range Interpretation Comments Hematocrit (test code = 4544-3) 29.2 38.2-49.6 L [facility] ParkwayMean Corpuscular Vqoccx5056-45-25 05:34:00* Test Item Value Reference Range Interpretation Comments Mean Corpuscular Volume (test code = 787-2) 95.4 81-99 [facility] ParkwayMean Corpuscular Edpuepaldo3947-55-79 05:34:00* Test Item Value Reference Range Interpretation Comments Mean Corpuscular Hemoglobin (test code = 785-6) 32.4 28-32 H [facility] ParkwayMean Corpuscular Hemoglobin Concent 2019-03-16 05:34:00* Test Item Value Reference Range Interpretation Comments Mean Corpuscular Hemoglobin Concent (test code = 786-4) 33.9 31-35 [facility] ParkwayRed Cell Distribution Cdkzu5626-18-95 05:34:00* Test Item Value Reference Range Interpretation Comments Red Cell Distribution Width (test code = 47458-7) 11.7 11.7 -14.4 [facility] ParkwayPlatelet Tfcib9333-03-38 05:34:00* Test Item Value Reference Range Interpretation Comments Platelet Count (test code = 777-3) 174 140-360 [facility] ParkwayNeutrophils (%) (Auto)2019-03-16 05:34:00 * Test Item Value Reference Range Interpretation Comments Neutrophils (%) (Auto) (test code = 77809-2) 41.6 38.7-80.0 [facility] ParkwayLymphocytes (%) (Auto)2019-03-16 05:34:00 * Test Item Value Reference Range Interpretation Comments Lymphocytes (%) (Auto) (test code = 736-9) 47.6 18.0-39.1 H [facility] ParkwayMonocytes (%) (Auto)2019-03-16 05:34:00* Test Item Value Reference Range Interpretation Comments Monocytes (%) (Auto) (test code = 5905-5) 8.4 4.4-11.3 [facility]wayEosinophils (%) (Auto)2019-03-16 05:34:00 * Test Item Value Reference Range Interpretation Comments Eosinophils (%) (Auto) (test code = 713-8) 1.6 0.0-6.0 [facility] ParkwayBasophils (%) (Auto)2019-03-16 05:34:00* Test Item Value Reference Range Interpretation Comments Basophils (%) (Auto) (test code = 706-2) 0.3 0.0-1.0 [facility] ParkwayIM GRANULOCYTES %2019-03-16 05:34:00* Test Item Value Reference Range Interpretation Comments IM GRANULOCYTES % (test code = IM GRANULOCYTES %) 0.5 0.0- 1.0 [facility] ParkwayNeutrophils # (Auto)2019-03-16 05:34:00* Test Item Value Reference Range Interpretation Comments Neutrophils # (Auto) (test code = 751-8) 1.5 2.1-6.9 L [facility] ParkwayLymphocytes # (Auto)2019-03-16 05:34:00* Test Item Value Reference Range Interpretation Comments Lymphocytes # (Auto) (test code = 27215-5) 1.8 1.0-3.2 [facility] ParkwayMonocytes # (Auto)2019-03-16 05:34:00* Test Item Value Reference Range Interpretation Comments Monocytes # (Auto) (test code = 742-7) 0.3 0.2-0.8 [facility] ParkwayEosinophils # (Auto)2019-03-16 05:34:00* Test Item Value Reference Range Interpretation Comments Eosinophils # (Auto) (test code = 711-2) 0.1 0.0-0.4 [facility] # (Auto)2019-03-16 05:34:00* Test Item Value Reference Range Interpretation Comments Basophils # (Auto) (test code = 704-7) 0.0 0.0-0.1 [facility]wayAbsolute Immature Granulocyte (auto 2019-03-16 05:34:00* Test Item Value Reference Range Interpretation Comments Absolute Immature Granulocyte (auto (jourdan t code = Absolute Immature Granulocyte (auto) 0.02 0-0.1 [facility] ParkwayFluoroscopic procedure less than one hour rutqqdmi5628-10-44 04:00:00* Test Item Value Reference Range Interpretation Comments Differential Total Cells Counted (test code = Norma tial Total Cells Counted) 100 [facility] blood neutrophils/100 leukocytes 2019-03-16 04:00:00* Test Item Value Reference Range Interpretation Comments Neutrophils % (Manual) (test code = 69536-0) 42 40-74 [facility] blood lymphocytes/100 leukocytes 2019-03-16 04:00:00* Test Item Value Reference Range Interpretation Comments Lymphocytes % (Manual) (test code = 737-7) 49 19-48 [facility] blood monocytes/100 leukocytes 2019-03-16 04:00:00* Test Item Value Reference Range Interpretation Comments Monocytes % (Manual) (test code = 744-3) 5 3.4-9.0 [facility] lymphocytes variant count (number/volume)2019-03-16 04:00:00* Test Item Value Reference Range Interpretation Comments Reactive Lymphocytes (test code = 10489-1) 4 [facility]wayBlood platelets count by estimate (number/volume)2019-03-16 04:00:00* Test Item Value Reference Range Interpretation Comments Platelet Estimate (test code = 13884-8) ADEQUATE [facility] ParkwayPlatelet dmizfvoczl9215-96-98 04:00:00* Test Item Value Reference Range Interpretation Comments Platelet Morphology Comment (test code = 09773-0) NORMAL [facility] ParkwayRB ubpkbawzlx1371-69-23 04:00:00* Test Item Value Reference Range Interpretation Comments Red Cell Morphology Comment (test code = 6742-1) NORMAL [facility] ParkwayFluoroscopic procedure less than one hour zovcpaib2595-24-55 04:00:00* Test Item Value Reference Range Interpretation Comments Differential Total Cells Counted (test code = Differen tial Total Cells Counted) 100 [facility] leukocytes 2019-03-16 04:00:00* Test Item Value Reference Range Interpretation Comments Neutrophils % (Manual) (test code = 24453-5) 42 40-74 [facility] blood lymphocytes/100 leukocytes 2019-03-16 04:00:00* Test Item Value Reference Range Interpretation Comments Lymphocytes % (Manual) (test code = 737-7) 49 19-48 [facility] blood monocytes/100 leukocytes 2019-03-16 04:00:00* Test Item Value Reference Range Interpretation Comments Monocytes % (Manual) (test code = 744-3) 5 3.4-9.0 [facility] lymphocytes variant count (number/volume)2019-03-16 04:00:00* Test Item Value Reference Range Interpretation Comments Reactive Lymphocytes (test code = 49194-4) 4 [facility] platelets count by estimate (number/volume)2019-03-16 04:00:00* Test Item Value Reference Range Interpretation Comments Platelet Estimate (test code = 69732-9) ADEQUATE [facility] ParkwayPlatelet nxikfybwku7255-71-53 04:00:00* Test Item Value Reference Range Interpretation Comments Platelet Morphology Comment (test code = 64234-1) NORMAL [facility] ParkwayRB ddollleiis5851-31-51 04:00:00* Test Item Value Reference Range Interpretation Comments Red Cell Morphology Comment (test code = 6742-1) NORMAL [facility] ParkwayFluoroscopic procedure less than one hour vgmqhzoh5100-57-24 04:00:00* Test Item Value Reference Range Interpretation Comments Differential Total Cells Counted (test code = Differen tial Total Cells Counted) 100 [facility] blood neutrophils/100 leukocytes 2019-03-16 04:00:00* Test Item Value Reference Range Interpretation Comments Neutrophils % (Manual) (test code = 11691-9) 42 40-74 [facility] lymphocytes/100 leukocytes 2019-03-16 04:00:00* Test Item Value Reference Range Interpretation Comments Lymphocytes % (Manual) (test code = 737-7) 49 19-48 [facility] blood monocytes/100 leukocytes 2019-03-16 04:00:00* Test Item Value Reference Range Interpretation Comments Monocytes % (Manual) (test code = 744-3) 5 3.4-9.0 [facility] lymphocytes variant count (number/volume)2019-03-16 04:00:00* Test Item Value Reference Range Interpretation Comments Reactive Lymphocytes (test code = 83658-0) 4 [facility] platelets count by estimate (number/volume)2019-03-16 04:00:00* Test Item Value Reference Range Interpretation Comments Platelet Estimate (test code = 66198-7) ADEQUATE [facility] ParkwayPlatelet fsgrioysjv3379-00-60 04:00:00* Test Item Value Reference Range Interpretation Comments Platelet Morphology Comment (test code = 02919-6) NORMAL [facility] afysqqdxkp2269-80-76 04:00:00* Test Item Value Reference Range Interpretation Comments Red Cell Morphology Comment (test code = 6742-1) NORMAL [facility] ParkwayFluoroscopic procedure less than one hour obpqgesa2556-16-33 04:00:00* Test Item Value Reference Range Interpretation Comments Differential Total Cells Counted (test code = Differclarice tial Total Cells Counted) 100 [facility] blood neutrophils/100 leukocytes 2019-03-16 04:00:00* Test Item Value Reference Range Interpretation Comments Neutrophils % (Manual) (test code = 23381-0) 42 40-74 [facility] blood lymphocytes/100 leukocytes 2019-03-16 04:00:00* Test Item Value Reference Range Interpretation Comments Lymphocytes % (Manual) (test code = 737-7) 49 19-48 [facility] blood monocytes/100 leukocytes 2019-03-16 04:00:00* Test Item Value Reference Range Interpretation Comments Monocytes % (Manual) (test code = 744-3) 5 3.4-9.0 [facility] lymphocytes variant count (number/volume)2019-03-16 04:00:00* Test Item Value Reference Range Interpretation Comments Reactive Lymphocytes (test code = 72684-0) 4 [facility] platelets count by estimate (number/volume)2019-03-16 04:00:00* Test Item Value Reference Range Interpretation Comments Platelet Estimate (test code = 76162-3) ADEQUATE [facility] ParkwayPlatelet hdtoqskmdn4876-52-50 04:00:00* Test Item Value Reference Range Interpretation Comments Platelet Morphology Comment (test code = 85612-1) NORMAL [facility] ParkwayRB vlkwzevzng5951-10-91 04:00:00* Test Item Value Reference Range Interpretation Comments Red Cell Morphology Comment (test code = 6742-1) NORMAL [facility] ParkwayFluoroscopic procedure less than one hour yqtdnpnh6394-68-65 04:00:00* Test Item Value Reference Range Interpretation Comments Differential Total Cells Counted (test code = Differclarice tial Total Cells Counted) 100 [facility] blood neutrophils/100 leukocytes 2019-03-16 04:00:00* Test Item Value Reference Range Interpretation Comments Neutrophils % (Manual) (test code = 59173-5) 42 40-74 [facility] blood lymphocytes/100 leukocytes 2019-03-16 04:00:00* Test Item Value Reference Range Interpretation Comments Lymphocytes % (Manual) (test code = 737-7) 49 19-48 [facility] blood monocytes/100 leukocytes 2019-03-16 04:00:00* Test Item Value Reference Range Interpretation Comments Monocytes % (Manual) (test code = 744-3) 5 3.4-9.0 [facility] lymphocytes variant count (number/volume)2019-03-16 04:00:00* Test Item Value Reference Range Interpretation Comments Reactive Lymphocytes (test code = 04712-2) [address] [facility] count by estimate (number/volume)2019-03-16 04:00:00* Test Item Value Reference Range Interpretation Comments Platelet Estimate (test code = 56362-1) ADEQUATE [facility] ParkwayPlatelet wtmvdtwybi8392-60-33 04:00:00* Test Item Value Reference Range Interpretation Comments Platelet Morphology Comment (test code = 01026-0) NORMAL [facility] ParkwayRBC weermgdfgp6439-47-44 04:00:00* Test Item Value Reference Range Interpretation Comments Red Cell Morphology Comment (test code = 6742-1) NORMAL [facility] ParkwayVitamin B12 Fxtxz1452-68-96 21:54:00* Test Item Value Reference Range Interpretation Comments Vitamin B12 Level (test code = 08625-1) 605 213-816 [facility] ParkwayVitamin B12 Mhbqi7920-71-57 21:54:00* Test Item Value Reference Range Interpretation Comments Vitamin B12 Level (test code = 55368-9) 605 213-816 [facility] ParkwayVitamin B12 Dgkgj7443-06-54 21:54:00* Test Item Value Reference Range Interpretation Comments Vitamin B12 Level (test code = 18935-5) 605 213-816 [facility] ParkwayFerritin2019-11-13 21:44:00* Test Item Value Reference Range Interpretation Comments Ferritin (test code = 2276-4) 387.29 21.81-274.66 H [facility] ParkwayThyroid Stimulating Hormone (TSH) 2019-03-15 21:44:00* Test Item Value Reference Range Interpretation Comments Thyroid Stimulating Hormone (TSH) (test code = 73034-6) 2.573 0.350-4.940 [facility] ParkwayFerritin2019-11-13 21:44:00* Test Item Value Reference Range Interpretation Comments Ferritin (test code = 2276-4) 387.29 21.81-274.66 H [facility] ParkwayThyroid Stimulating Hormone (TSH) 2019-03-15 21:44:00* Test Item Value Reference Range Interpretation Comments Thyroid Stimulating Hormone (TSH) (test code = 21508-8) 2.573 0.350-4.940 [facility] ParkwayFerritin2019-11-13 21:44:00* Test Item Value Reference Range Interpretation Comments Ferritin (test code = 2276-4) 387.29 21.81-274.66 H [facility] ParkwayThyroid Stimulating Hormone (TSH) 2019-03-15 21:44:00* Test Item Value Reference Range Interpretation Comments Thyroid Stimulating Hormone (TSH) (test code = 44436-2) 2.573 0.350-4.940 [facility] ParkwayErythrocyte Sedimentation Yple7446-22-63 21:33:00* Test Item Value Reference Range Interpretation Comments Erythrocyte Sedimentation Rate (test code = 4537-7) 62 0- 13 H [facility] ParkwayErythrocyte Sedimentation Dyfp2642-14-44 21:33:00* Test Item Value Reference Range Interpretation Comments Erythrocyte Sedimentation Rate (test code = 4537-7) 62 0- 13 H [facility] ParkwayErythrocyte Sedimentation Vwqs5218-77-96 21:33:00* Test Item Value Reference Range Interpretation Comments Erythrocyte Sedimentation Rate (test code = 4537-7) 62 0- 13 H [facility] ParkwayIron Xhxhg0793-56-30 21:22:00* Test Item Value Reference Range Interpretation Comments Iron Level (test code = 2498-4) 69 65-175 [facility] ParkwayTotal Iron Binding Uimwxuib5794-69-61 21:22:00* Test Item Value Reference Range Interpretation Comments Total Iron Binding Capacity (test code = 2500-7) 256 261-4 78 L [facility] ParkwayPercent Iron Ugtlgbtecg8210-56-00 21:22:00* Test Item Value Reference Range Interpretation Comments Percent Iron Saturation (test code = 2502-3) 27 15-50 [facility] ParkwayTransferrin2019-11-13 21:22:00* Test Item Value Reference Range Interpretation Comments Transferrin (test code = 3034-6) 183 174-364 [facility] ParkwayAmylase Jebkk9057-71-21 21:22:00* Test Item Value Reference Range Interpretation Comments Amylase Level (test code = 1798-8) 68 25-125 [facility]2019-11-13 21:22:00* Test Item Value Reference Range Interpretation Comments Lipase (test code = 3040-3) 14 8-78 [facility]2019-11-13 21:22:00* Test Item Value Reference Range Interpretation Comments Iron Level (test code = 2498-4) 69 65-175 [facility] ParkwayTotal Iron Binding Vdkbilie0957-39-44 21:22:00* Test Item Value Reference Range Interpretation Comments Total Iron Binding Capacity (test code = 2500-7) 256 261-4 78 L [facility] ParkwayPercent Iron Jbasqinmmd7283-02-54 21:22:00* Test Item Value Reference Range Interpretation Comments Percent Iron Saturation (test code = 2502-3) 1550 [facility] ParkwayTransferrin2019-11-13 21:22:00* Test Item Value Reference Range Interpretation Comments Transferrin (test code = 3034-6) 183 174-364 [facility] ParkwayAmylase Ossla2752-68-53 21:22:00* Test Item Value Reference Range Interpretation Comments Amylase Level (test code = 1798-8) 68 25-125 [facility]2019-11-13 21:22:00* Test Item Value Reference Range Interpretation Comments Lipase (test code = 3040-3) 14 878 [facility]2019-11-13 21:22:00* Test Item Value Reference Range Interpretation Comments Iron Level (test code = 2498-4) 69 65-175 [facility]Top[facility] Iron Binding Icxwlgga7420-38-90 21:22:00* Test Item Value Reference Range Interpretation Comments Total Iron Binding Capacity (test code = 2500-7) 256 261-4 78 L [facility] ParkwayPercent Iron Dcgsuqbntn9196-42-14 21:22:00* Test Item Value Reference Range Interpretation Comments Percent Iron Saturation (test code = 2502-3) 27 15-50 [facility] ParkwayTransferrin2019-11-13 21:22:00* Test Item Value Reference Range Interpretation Comments Transferrin (test code = 3034-6) 183 174-364 [facility] ParkwayPercent Reticulocyte Lcypu1220-84-10 21:04:00* Test Item Value Reference Range Interpretation Comments Percent Reticulocyte Count (test code = 93778-9) 1.3 0.8-2 .2 [facility] ParkwayPercent Reticulocyte Ouvfu9475-48-17 21:04:00* Test Item Value Reference Range Interpretation Comments Percent Reticulocyte Count (test code = 14777-7) 1.3 0.8-2 .2 [facility] ParkwayPercent Reticulocyte Krzfz3596-44-05 21:04:00* Test Item Value Reference Range Interpretation Comments Percent Reticulocyte Count (test code = 18921-0) 1.3 0.8-2 .2 [facility] ParkwayErythrocyte sedimentation rate by Westergren vsqfaq0593-92-13 19:20:00* Test Item Value Reference Range Interpretation Comments Erythrocyte Sedimentation Rate (test code = 4537-7) 62 0- 13 [facility] ParkwayAutomated reticulocyte count as percentage of total xioyhuaejvom1285-77-71 19:20:00* Test Item Value Reference Range Interpretation Comments Percent Reticulocyte Count (test code = 98018-3) 1.3 0.8-2 .2 [facility] Edinburgerum or plasma iron measurement (mass/volume)2019-03-15 19:20:00* Test Item Value Reference Range Interpretation Comments Iron Level (test code = 2498-4) 69 65-175 [facility] Edinburgerum or plasma iron binding capacity measurement (mass/volume)2019-03-15 19:20:00* Test Item Value Reference Range Interpretation Comments Total Iron Binding Capacity (test code = 2500-7) 256 261-4 78 [facility] Edinburgerum or plasma iron saturation measurement (mass fraction)2019-03-15 19:20:00* Test Item Value Reference Range Interpretation Comments Percent Iron Saturation (test code = 2502-3) 27 15-50 [facility] Edinburgerum or plasma transferrin measurement (mass/volume)2019-03-15 19:20:00* Test Item Value Reference Range Interpretation Comments Transferrin (test code = 3034-6) 183 174-364 [facility] Edinburgerum or plasma ferritin measurement (mass/volume)2019-03-15 19:20:00* Test Item Value Reference Range Interpretation Comments Ferritin (test code = 2276-4) 387.29 21.81-274.66 [facility] ParkwayBlood cobalamin (vitamin B12) measurement (mass/volume)2019-03-15 19:20:00* Test Item Value Reference Range Interpretation Comments Vitamin B12 Level (test code = 86905-4) 605 213-816 [facility] Edinburgerum or plasma thyrotropin measurement by detection limit <= 0.005 miu/l (units/volume)2019-03-15 19:20:00* Test Item Value Reference Range Interpretation Comments Thyroid Stimulating Hormone (TSH) (test code = 92160-5) 2.573 0.350-4.940 [facility] ParkwayBlood folate measurement (mass/volume) 2019-03-15 19:20:00* Test Item Value Reference Range Interpretation Comments RBC Folate Hemolysate (test code = 2282-2) 268.2 Not Estab. [facility] ParkwayAutomated blood hematocrit (volume fraction)2019-03-15 19:20:00* Test Item Value Reference Range Interpretation Comments Hematocrit (test code = 4544-3) 29.1 37.5-51.0 [facility] ParkwayErythrocyte folate measurement (mass/volume)2019-03-15 19:20:00* Test Item Value Reference Range Interpretation Comments Red Blood Cell Folate (test code = 2283-0) 922 >498 Performed at: - Lab[address] [id number] Director: Alejo Malin MD, Phone: [phone] [facility] Health [facility] Edinburgerum tissue transglutaminase IgA antibody qobeguwdv9373-22-46 19:20:00* Test Item Value Reference Range Interpretation Comments Tissue Transglutaminase IgA Ab (test code = 88928-5) <2 0 -3 Negative 0 - 3 Weak Positive 4 - 10 Positive >10 Tissue Transglutaminase (tTG) has been identified as the endomysial antigen. Studies have demonstr- ated that endomysial IgA antibodies have over 99% specif icity for gluten sensitive enteropathy.[facility] Serum or plasma IgA measurement (mass/volume)2019-03-15 19:20:00* Test Item Value Reference Range Interpretation Comments Immunoglobulin A (test code = 2458-8) 150 90-386 Performed at: [facility] [id number] Employee Benefits Manager: Lai Olson MD, Phone: [phone] at: [facility] [id number] Director: Alejo Malin MD, Ph one: [phone] [facility] Health System Edinburgerum endomysium IgA antibody ysemcpxuz5440-42-99 19:20:00* Test Item Value Reference Range Interpretation Comments Endomysial IgA Antibody (test code = 87359-4) Negative Negative [facility] Edinburgerum or plasma C reactive protein measurement (mass/volume)2019-03-15 19:20:00* Test Item Value Reference Range Interpretation Comments C-Reactive Protein (test code = 1988-5) 3 0-10 Performed at: [facility] [id number] Director: Alejo Malin MD, Phone: [phone] Health [facility] Hospital at ParkwayErythrocyte sedimentation rate by Westergren vbfqfj9450-23-03 19:20:00* Test Item Value Reference Range Interpretation Comments Erythrocyte Sedimentation Rate (test code = 4537-7) 62 0- 13 [facility] ParkwayAutomated reticulocyte count as percentage of total ceovupyzegrp6633-43-50 19:20:00* Test Item Value Reference Range Interpretation Comments Percent Reticulocyte Count (test code = 18881-7) 1.3 0.8-2 .2 [facility] Ed[facility]gerum or plasma iron measurement (mass/volume)2019-03-15 19:20:00* Test Item Value Reference Range Interpretation Comments Iron Level (test code = 2498-4) 69 65-175 [facility] Edinburgerum or plasma iron binding capacity measurement (mass/volume)2019-03-15 19:20:00* Test Item Value Reference Range Interpretation Comments Total Iron Binding Capacity (test code = 2500-7) 256 261-4 78 [facility] Edinburgerum or plasma iron saturation measurement (mass fraction)2019-03-15 19:20:00* Test Item Value Reference Range Interpretation Comments Percent Iron Saturation (test code = 2502-3) 27 15-50 [facility] Edinburgerum or plasma transferrin measurement (mass/volume)2019-03-15 19:20:00* Test Item Value Reference Range Interpretation Comments Transferrin (test code = 3034-6) 183 174-364 [facility] Edinburgerum or plasma ferritin measurement (mass/volume)2019-03-15 19:20:00* Test Item Value Reference Range Interpretation Comments Ferritin (test code = 2276-4) 387.29 21.81-274.66 [facility]wayBlood cobalamin (vitamin B12) measurement (mass/volume)2019-03-15 19:20:00* Test Item Value Reference Range Interpretation Comments Vitamin B12 Level (test code = 48747-4) 605 213-816 [facility] Edinburgerum or plasma thyrotropin measurement by detection limit <= 0.005 miu/l (units/volume)2019-03-15 19:20:00* Test Item Value Reference Range Interpretation Comments Thyroid Stimulating Hormone (TSH) (test code = 05222-9) 2.573 0.350-4.940 [facility] ParkwayBlood folate measurement (mass/volume) 2019-03-15 19:20:00* Test Item Value Reference Range Interpretation Comments RBC Folate Hemolysate (test code = 2282-2) 268.2 Not Estab. [facility] ParkwayAutomated blood hematocrit (volume fraction)2019-03-15 19:20:00* Test Item Value Reference Range Interpretation Comments Hematocrit (test code = 4544-3) 29.1 37.5-51.0 [facility]wayErythrocyte folate measurement (mass/volume)2019-03-15 19:20:00* Test Item Value Reference Range Interpretation Comments Red Blood Cell Folate (test code = 2283-0) 922 >498 Performed at: [address] [id number] Director: Alejo Malin MD, Phone: [phone] [facility] Health System Edinburgerum tissue transglutaminase IgA antibody crxsixbde0861-00-76 19:20:00* Test Item Value Reference Range Interpretation Comments Tissue Transglutaminase IgA Ab (test code = 69157-0) <2 0 -3 Negative 0 - 3 Weak Positive 4 - 10 Positive >10 Tissue Transglutaminase (tTG) has been identified as the endomysial antigen. Studies have demonstr- ated that endomysial IgA antibodies have over 99% specif icity for gluten sensitive enteropathy.[facility] Serum or plasma IgA measurement (mass/volume)2019-03-15 19:20:00* Test Item Value Reference Range Interpretation Comments Immunoglobulin A (test code = 2458-8) 150 90-386 Performed at: [facility] [address] [id number] Employee Benefits Manager: Lai Olson MD, Phone: [phone] at: [employer] [address] [id number] Director: Alejo Malin MD, Ph one: [phone] [facility] Edinburgerum endomysium IgA antibody jkrrjuqvy7287-17-17 19:20:00* Test Item Value Reference Range Interpretation Comments Endomysial IgA Antibody (test code = 27910-8) Negative Negative [facility]gerum or plasma C reactive protein measurement (mass/volume)2019-03-15 19:20:00* Test Item Value Reference Range Interpretation Comments C-Reactive Protein (test code = 1988-5) 3 0-10 Performed at: [facility] [address] [id number] Director: Alejo Malin MD, Phone: [phone] Health Surgical Hospital at ParkwayErythrocyte sedimentation rate by Westergren oytbbe0636-38-63 19:20:00* Test Item Value Reference Range Interpretation Comments Erythrocyte Sedimentation Rate (test code = 4537-7) 62 0- 13 [facility] ParkwayAutomated reticulocyte count as percentage of total nwfmwmzqlnfo4164-30-71 19:20:00* Test Item Value Reference Range Interpretation Comments Percent Reticulocyte Count (test code = 82689-1) 1.3 0.8-2 .2 [facility]gerum or plasma iron measurement (mass/volume)2019-03-15 19:20:00* Test Item Value Reference Range Interpretation Comments Iron Level (test code = 2498-4) 69 65-175 [facility] Edinburgerum or plasma iron binding capacity measurement (mass/volume)2019-03-15 19:20:00* Test Item Value Reference Range Interpretation Comments Total Iron Binding Capacity (test code = 2500-7) 256 261-4 78 [facility] or plasma iron saturation measurement (mass fraction)2019-03-15 19:20:00* Test Item Value Reference Range Interpretation Comments Percent Iron Saturation (test code = 2502-3) 27 15-50 [facility] or plasma transferrin measurement (mass/volume)2019-03-15 19:20:00* Test Item Value Reference Range Interpretation Comments Transferrin (test code = 3034-6) 183 174-364 [facility] or plasma ferritin measurement (mass/volume)2019-03-15 19:20:00* Test Item Value Reference Range Interpretation Comments Ferritin (test code = 2276-4) 387.29 21.81-274.66 [facility]Blood cobalamin (vitamin B12) measurement (mass/volume)2019-03-15 19:20:00* Test Item Value Reference Range Interpretation Comments Vitamin B12 Level (test code = 15950-7) 605 213-816 [facility] or plasma thyrotropin measurement by detection limit <= 0.005 miu/l (units/volume)2019-03-15 19:20:00* Test Item Value Reference Range Interpretation Comments Thyroid Stimulating Hormone (TSH) (test code = 64983-7) 2.573 0.350-4.940 [facility]wayBlood folate measurement (mass/volume) 2019-03-15 19:20:00* Test Item Value Reference Range Interpretation Comments RBC Folate Hemolysate (test code = 2282-2) 268.2 Not Estab. [facility] ParkwayAutomated blood hematocrit (volume fraction)2019-03-15 19:20:00* Test Item Value Reference Range Interpretation Comments Hematocrit (test code = 4544-3) 29.1 37.5-51.0 [facility] ParkwayErythrocyte folate measurement (mass/volume)2019-03-15 19:20:00* Test Item Value Reference Range Interpretation Comments Red Blood Cell Folate (test code = 2283-0) 922 >498 Performed at: [facility] [id number] Director: Alejo Malin MD, Phone: [phone] [facility] Edinburgerum tissue transglutaminase IgA antibody ibszenqlq2695-14-05 19:20:00* Test Item Value Reference Range Interpretation Comments Tissue Transglutaminase IgA Ab (test code = 65857-4) <2 0 -3 Negative 0 - 3 Weak Positive 4 - 10 Positive >10 Tissue Transglutaminase (tTG) has been identified as the endomysial antigen. Studies have demonstr- ated that endomysial IgA antibodies have over 99% specif icity for gluten sensitive enteropathy.[facility] Serum or plasma IgA measurement (mass/volume)2019-03-15 19:20:00* Test Item Value Reference Range Interpretation Comments Immunoglobulin A (test code = 2458-8) 150 90-386 Performed at: [facility] [id number] Employee Benefits Manager: Lai Olson MD, Phone: [phone] at: [facility] [id number] Director: Alejo Malin MD, Ph one: [phone] [facility] Health System Edinburgerum endomysium IgA antibody shnyhivuo0024-34-14 19:20:00* Test Item Value Reference Range Interpretation Comments Endomysial IgA Antibody (test code = 18461-4) Negative Negative [facility] or plasma C reactive protein measurement (mass/volume)2019-03-15 19:20:00* Test Item Value Reference Range Interpretation Comments C-Reactive Protein (test code = 1988-5) 3 0-10 Performed at: [facility], [place] [id number] Director: Alejo Malin MD, Phone: [phone] Health Surgical Hospital at ParkwayErythrocyte sedimentation rate by Westergren sqcafj3676-71-75 19:20:00* Test Item Value Reference Range Interpretation Comments Erythrocyte Sedimentation Rate (test code = 4537-7) 62 0- 13 [facility] ParkwayAutomated reticulocyte count as percentage of total hixazxzyjvzz0986-79-30 19:20:00* Test Item Value Reference Range Interpretation Comments Percent Reticulocyte Count (test code = 45798-7) 1.3 0.8-2 .2 [facility] or plasma iron measurement (mass/volume)2019-03-15 19:20:00* Test Item Value Reference Range Interpretation Comments Iron Level (test code = 2498-4) 69 65-175 [facility] or plasma iron binding capacity measurement (mass/volume)2019-03-15 19:20:00* Test Item Value Reference Range Interpretation Comments Total Iron Binding Capacity (test code = 2500-7) 256 261-4 78 [facility]gerum or plasma iron saturation measurement (mass fraction)2019-03-15 19:20:00* Test Item Value Reference Range Interpretation Comments Percent Iron Saturation (test code = 2502-3) 27 15-50 [facility] or plasma transferrin measurement (mass/volume)2019-03-15 19:20:00* Test Item Value Reference Range Interpretation Comments Transferrin (test code = 3034-6) 183 174-364 [facility] or plasma ferritin measurement (mass/volume)2019-03-15 19:20:00* Test Item Value Reference Range Interpretation Comments Ferritin (test code = 2276-4) 387.29 21.81-274.66 [facility]wayBlood cobalamin (vitamin B12) measurement (mass/volume)2019-03-15 19:20:00* Test Item Value Reference Range Interpretation Comments Vitamin B12 Level (test code = 48732-4) 600 213811 [facility] or plasma thyrotropin measurement by detection limit <= 0.005 miu/l (units/volume)2019-03-15 19:20:00* Test Item Value Reference Range Interpretation Comments Thyroid Stimulating Hormone (TSH) (test code = 29226-1) 2.573 0.350-4.940 [facility]wayBlood folate measurement (mass/volume) 2019-03-15 19:20:00* Test Item Value Reference Range Interpretation Comments RBC Folate Hemolysate (test code = 2282-2) 268.2 Not Estab. [facility] ParkwayAutomated blood hematocrit (volume fraction)2019-03-15 19:20:00* Test Item Value Reference Range Interpretation Comments Hematocrit (test code = 4544-3) 29.1 37.5-51.0 [facility] ParkwayErythrocyte folate measurement (mass/volume)2019-03-15 19:20:00* Test Item Value Reference Range Interpretation Comments Red Blood Cell Folate (test code = 2283-0) 922 >498 Performed at: [employer] [id number] Director: Alejo Malin MD, Phone: [phone] [facility] Health System Edinburgerum tissue transglutaminase IgA antibody rstzrxjlg5527-21-93 19:20:00* Test Item Value Reference Range Interpretation Comments Tissue Transglutaminase IgA Ab (test code = 92001-2) <2 0 -3 Negative 0 - 3 Weak Positive 4 - 10 Positive >10 Tissue Transglutaminase (tTG) has been identified as the endomysial antigen. Studies have demonstr- ated that endomysial IgA antibodies have over 99% specif icity for gluten sensitive enteropathy.[facility] Serum or plasma IgA measurement (mass/volume)2019-03-15 19:20:00* Test Item Value Reference Range Interpretation Comments Immunoglobulin A (test code = 2458-8) 150 90-386 Performed at: [facility] [id number] Employee Benefits Manager: Lai Olson MD, Phone: [phone] at: [employer] [id number] Director: Alejo Malin MD, Ph one: [phone] [facility] Health System Edinburgerum endomysium IgA antibody uuzhyclel5198-85-49 19:20:00* Test Item Value Reference Range Interpretation Comments Endomysial IgA Antibody (test code = 71415-4) Negative Negative [facility] or plasma C reactive protein measurement (mass/volume)2019-03-15 19:20:00* Test Item Value Reference Range Interpretation Comments C-Reactive Protein (test code = 1988-5) 3 0-10 Performed at: - [facility] [id number] Director: Alejo Malin MD, Phone: [phone] Health Surgical Hospital at ParkwayErythrocyte sedimentation rate by Westergren fifgjd4366-17-73 19:20:00* Test Item Value Reference Range Interpretation Comments Erythrocyte Sedimentation Rate (test code = 4537-7) 62 0- 13 [facility] ParkwayAutomated reticulocyte count as percentage of total fwsijdoivjgs1035-41-31 19:20:00* Test Item Value Reference Range Interpretation Comments Percent Reticulocyte Count (test code = 03338-0) 1.3 0.8-2 .2 [facility] or plasma iron measurement (mass/volume)2019-03-15 19:20:00* Test Item Value Reference Range Interpretation Comments Iron Level (test code = 2498-4) 69 65-175 [facility] or plasma iron binding capacity measurement (mass/volume)2019-03-15 19:20:00* Test Item Value Reference Range Interpretation Comments Total Iron Binding Capacity (test code = 2500-7) 256 261-4 78 [facility] or plasma iron saturation measurement (mass fraction)2019-03-15 19:20:00* Test Item Value Reference Range Interpretation Comments Percent Iron Saturation (test code = 2502-3) 27 15-50 [facility] or plasma transferrin measurement (mass/volume)2019-03-15 19:20:00* Test Item Value Reference Range Interpretation Comments Transferrin (test code = 3034-6) 183 174-364 [facility] or plasma ferritin measurement (mass/volume)2019-03-15 19:20:00* Test Item Value Reference Range Interpretation Comments Ferritin (test code = 2276-4) 387.29 21.81-274.66 [facility]wayBlood cobalamin (vitamin B12) measurement (mass/volume)2019-03-15 19:20:00* Test Item Value Reference Range Interpretation Comments Vitamin B12 Level (test code = 16671-9) 605 213-816 [facility] or plasma thyrotropin measurement by detection limit <= 0.005 miu/l (units/volume)2019-03-15 19:20:00* Test Item Value Reference Range Interpretation Comments Thyroid Stimulating Hormone (TSH) (test code = 23498-5) 2.573 0.350-4.940 [facility]wayBlood folate measurement (mass/volume) 2019-03-15 19:20:00* Test Item Value Reference Range Interpretation Comments RBC Folate Hemolysate (test code = 2282-2) 268.2 Not Estab. [facility] ParkwayAutomated blood hematocrit (volume fraction)2019-03-15 19:20:00* Test Item Value Reference Range Interpretation Comments Hematocrit (test code = 4544-3) 29.1 37.5-51.0 [facility] ParkwayErythrocyte folate measurement (mass/volume)2019-03-15 19:20:00* Test Item Value Reference Range Interpretation Comments Red Blood Cell Folate (test code = 2283-0) 922 >498 Performed at: - [facility] [id number] Director: Alejo Malin MD, Phone: [phone] Texas Health System Edinburgerum tissue transglutaminase IgA antibody fjnyvecmd9307-04-15 19:20:00* Test Item Value Reference Range Interpretation Comments Tissue Transglutaminase IgA Ab (test code = 67062-6) <2 0 -3 Negative 0 - 3 Weak Positive 4 - 10 Positive >10 Tissue Transglutaminase (tTG) has been identified as the endomysial antigen. Studies have demonstr- ated that endomysial IgA antibodies have over 99% specif icity for gluten sensitive enteropathy.[facility] Serum or plasma IgA measurement (mass/volume)2019-03-15 19:20:00* Test Item Value Reference Range Interpretation Comments Immunoglobulin A (test code = 2458-8) 150 90-386 Performed at: [address] [id number] Employee Benefits Manager: Lai Olson MD, Phone: [phone] at: [address] [id number] Director: Alejo Malin MD, Ph one: [phone] [facility] Health System Edinburgerum endomysium IgA antibody yoctmfxyr7229-71-58 19:20:00* Test Item Value Reference Range Interpretation Comments Endomysial IgA Antibody (test code = 85509-2) Negative Negative [facility] or plasma C reactive protein measurement (mass/volume)2019-03-15 19:20:00* Test Item Value Reference Range Interpretation Comments C-Reactive Protein (test code = 1988-5) 3 0-10 Performed at: [facility] [address] [id number] Director: Alejo Malin MD, Phone: [phone] Health Surgical Hospital at ParkwayTotal Rauherska0681-34-01 12:59:00* Test Item Value Reference Range Interpretation Comments Total Bilirubin (test code = 1975-2) 0.4 0.2-1.2 [facility] ParkwayAspartate Amino Transf (AST/SGOT) 2019-03-14 12:59:00* Test Item Value Reference Range Interpretation Comments Aspartate Amino Transf (AST/SGOT) (test code = Aspartate Amino Transf (AST/SGOT)) 25 5-34 [facility] ParkwayAlanine Aminotransferase (ALT/SGPT) 2019-03-14 12:59:00* Test Item Value Reference Range Interpretation Comments Alanine Aminotransferase (ALT/SGPT) (test code = 1742-6) 24 0-55 [facility] ParkwayTotal Xdamleq9685-65-42 12:59:00* Test Item Value Reference Range Interpretation Comments Total Protein (test code = 2885-2) 7.2 6.5-8.1 [facility] ParkwayAlbumin2019-11-12 12:59:00* Test Item Value Reference Range Interpretation Comments Albumin (test code = 1751-7) 3.5 3.5-5.0 [facility] ParkwayGlobulin2019-11-12 12:59:00* Test Item Value Reference Range Interpretation Comments Globulin (test code = 88145-8) 3.7 2.3-3.5 H [facility] ParkwayAlbumin/Globulin Cnqpy1782-92-88 12:59:00 * Test Item Value Reference Range Interpretation Comments Albumin/Globulin Ratio (test code = 1759-0) 0.9 0.8-2.0 [facility] ParkwayAlkaline Mrvnorhyojc8707-41-42 12:59:00* Test Item Value Reference Range Interpretation Comments Alkaline Phosphatase (test code = 6768-6) 69 40-150 [facility] ParkwayTotal Jdogurqrv5531-79-34 12:59:00* Test Item Value Reference Range Interpretation Comments Total Bilirubin (test code = 1975-2) 0.4 0.2-1.2 [facility] ParkwayAspartate Amino Transf (AST/SGOT) 2019-03-14 12:59:00* Test Item Value Reference Range Interpretation Comments Aspartate Amino Transf (AST/SGOT) (test code = Aspartate Amino Transf (AST/SGOT)) 25 5-34 [facility] ParkwayAlanine Aminotransferase (ALT/SGPT) 2019-03-14 12:59:00* Test Item Value Reference Range Interpretation Comments Alanine Aminotransferase (ALT/SGPT) (test code = 1742-6) 24 0-55 [facility] ParkwayTotal Oeyfgnr4387-57-19 12:59:00* Test Item Value Reference Range Interpretation Comments Total Protein (test code = 2885-2) 7.2 6.5-8.1 [facility] ParkwayAlbumin2019-11-12 12:59:00* Test Item Value Reference Range Interpretation Comments Albumin (test code = 1751-7) 3.5 3.5-5.0 [facility] ParkwayGlobulin2019-11-12 12:59:00* Test Item Value Reference Range Interpretation Comments Globulin (test code = 71535-7) 3.7 2.3-3.5 H [facility] ParkwayAlbumin/Globulin Kdsfw7229-47-04 12:59:00 * Test Item Value Reference Range Interpretation Comments Albumin/Globulin Ratio (test code = 1759-0) 0.9 0.8-2.0 [facility] ParkwayAlkaline Lfslzqujrxk7181-27-49 12:59:00* Test Item Value Reference Range Interpretation Comments Alkaline Phosphatase (test code = 6768-6) 69 40-150 [facility] ParkwayCT ABDOMEN/PELVIS [id number] 12:24:00 [facility] [address] [address] Patient Name: QUYEN KIM MR #: [id number] : 1980 Age/Sex: 38/M Req #: [id number] Adm Physician: Ordered by: WESLY SPICER DO Report #: [id number] Location: ER Room/Bed: Procedure: [id number] CT/CT ABDOMEN/PELVIS WO Exam Date: 03/14/19 Exam [...] (Manual) (test code = 714-6) 3 0-7 [facility] ParkwayMetamyelocytes %2019-03-13 21:32:00* Test Item Value Reference Range Interpretation Comments Metamyelocytes % (test code = 740-1) 1 0-0 H [facility] ParkwayAnisocytosis2019-11-11 21:32:00* Test Item Value Reference Range Interpretation Comments Anisocytosis (test code = 702-1) SLIGHT [facility] ParkwayHowell-[place] Cfrfpf8901-19-08 21:32:00* Test Item Value Reference Range Interpretation Comments [place] Bodies (test code = 7793-3) FEW [facility] ParkwayEosinophils % (Manual)2019-03-13 21:32:00 * Test Item Value Reference Range Interpretation Comments Eosinophils % (Manual) (test code = 714-6) 3 0-7 [facility] ParkwayMetamyelocytes %2019-03-13 21:32:00* Test Item Value Reference Range Interpretation Comments Metamyelocytes % (test code = 740-1) 1 0-0 H [facility] ParkwayAnisocytosis2019-11-11 21:32:00* Test Item Value Reference Range Interpretation Comments Anisocytosis (test code = 702-1) SLIGHT [facility] ParkwayHow[facility] Nzdvon2586-41-29 21:32:00* Test Item Value Reference Range Interpretation Comments [place] Bodies (test code = 7793-3) FEW [facility]wayEosinophils % (Manual)2019-03-13 21:32:00 * Test Item Value Reference Range Interpretation Comments Eosinophils % (Manual) (test code = 714-6) 3 0-7 [facility] ParkwayMetamyelocytes %2019-03-13 21:32:00* Test Item Value Reference Range Interpretation Comments Metamyelocytes % (test code = 740-1) 1 0-0 H [facility] ParkwayAnisocytosis2019-11-11 21:32:00* Test Item Value Reference Range Interpretation Comments Anisocytosis (test code = 702-1) SLIGHT [facility] ParkwayHow[facility] Hfrljv0585-92-85 21:32:00* Test Item Value Reference Range Interpretation Comments [place] Bodies (test code = 7793-3) [facility] [id number] 16:21:00* Test Item Value Reference Range Interpretation Comments Urine WBC (test code = 5821-4) NONE 0-5 [facility] ParkwayUrine AZA5610-72-87 16:21:00* Test Item Value Reference Range Interpretation Comments Urine RBC (test code = 20371-1) 6-10 0-5 H [facility] ParkwayUrine Pexwlgly9878-19-59 16:21:00* Test Item Value Reference Range Interpretation Comments Urine Bacteria (test code = 19955-6) NONE NONE [facility] ParkwayUrine Epithelial Mvdsm2700-97-07 16:21:00 * Test Item Value Reference Range Interpretation Comments Urine Epithelial Cells (test code = 75998-3) NONE NONE [facility] ParkwayUrine Calcium Carbonate Crystals 2019-03-13 16:21:00* Test Item Value Reference Range Interpretation Comments Urine Calcium Carbonate Crystals (test code = 5773-7) MANY NONE H [facility] [id number] 16:21:00* Test Item Value Reference Range Interpretation Comments Urine WBC (test code = 5821-4) NONE 0-5 [facility] [id number] 16:21:00* Test Item Value Reference Range Interpretation Comments Urine RBC (test code = 42881-0) 6-10 0-5 H [facility] Ykbtqxmg9247-78-47 16:21:00* Test Item Value Reference Range Interpretation Comments Urine Bacteria (test code = 46077-6) NONE NONE [facility] Epithelial Fcwqr3451-95-59 16:21:00 * Test Item Value Reference Range Interpretation Comments Urine Epithelial Cells (test code = 64976-7) NONE NONE [facility] Calcium Carbonate Crystals 2019-03-13 16:21:00* Test Item Value Reference Range Interpretation Comments Urine Calcium Carbonate Crystals (test code = 5773-7) MANY NONE H [facility] [id number] 16:21:00* Test Item Value Reference Range Interpretation Comments Urine WBC (test code = 5821-4) NONE 0-5 [facility] [id number] 16:21:00* Test Item Value Reference Range Interpretation Comments Urine RBC (test code = 87524-7) 6-10 0-5 H [facility] Ozigqlon9892-68-55 16:21:00* Test Item Value Reference Range Interpretation Comments Urine Bacteria (test code = 73857-1) NONE NONE [facility] Epithelial Katwr7292-05-32 16:21:00 * Test Item Value Reference Range Interpretation Comments Urine Epithelial Cells (test code = 28412-7) NONE NONE [facility] Calcium Carbonate Crystals 2019-03-13 16:21:00* Test Item Value Reference Range Interpretation Comments Urine Calcium Carbonate Crystals (test code = 5773-7) MANY NONE H [facility] Calcium Carbonate Crystals 2019-03-13 16:21:00* Test Item Value Reference Range Interpretation Comments Urine Calcium Carbonate Crystals (test code = 5773-7) MANY NONE [facility] [id number] 16:17:00 [facility] [address] [address] Patient Name: QUYEN KIM MR #: [id number] : 1980 Age/Sex: 38/M Req #: [id number] Adm Physician: Ordered by: MARISOL ALBERT, PAULINE ALBERT Report #: [id number] Location: ER Room/Bed: Procedure: [id number] C T/CT ABDOMEN/PELVIS W Exam Date: 03/13/19 [...] COPY TO : PAULINE DAMON Urine Opiates Mbmidz2050-16-35 16:13:00* Test Item Value Reference Range Interpretation Comments Urine Opiates Screen (test code = 85870-1) POSITIVE NEGATIVE H ALL TESTS PERFORMED MANUALLY ON Gem[employer] TOX/SEE TEST This test provides only a sc reen. Positive results should be repeated by a confirmatory test.[facility]wayUrine Barbiturates Slzflm4211-20-24 16:13:00* Test Item Value Reference Range Interpretation Comments Urine Barbiturates Screen (test code = 149367249) NEGATIVE NEGA TIVE [facility] ParkwayUrine Phencyclidine Sjzhav4468-80-37 16:13:00* Test Item Value Reference Range Interpretation Comments Urine Phencyclidine Screen (test code = 96199-2) NEGATIVE NEGAT ANGY [facility] ParkwayUrine Amphetamines Yqhexx1240-29-04 16:13:00* Test Item Value Reference Range Interpretation Comments Urine Amphetamines Screen (test code = 77321-6) NEGATIVE NEGATI VE [facility] ParkwayUrine Methamphetamines Amxazt6975-06-64 16:13:00* Test Item Value Reference Range Interpretation Comments Urine Methamphetamines Screen (test code = Urine Metha mphetamines Screen) NEGATIVE NEGATIVE [facility] ParkwayUrine Benzodiazepines Jjdrbq1900-25-85 16:13:00* Test Item Value Reference Range Interpretation Comments Urine Benzodiazepines Screen (test code = 68695-9) NEGATIVE NEG ATIVE [facility] ParkwayUrine Cocaine Mlsatu5708-75-79 16:13:00* Test Item Value Reference Range Interpretation Comments Urine Cocaine Screen (test code = 3398-5) NEGATIVE NEGATIVE [facility] ParkwayU[facility] Cannabinoids Genahp5338-77-00 16:13:00* Test Item Value Reference Range Interpretation Comments Urine Cannabinoids Screen (test code = 58584-5) POSITIVE NEGATI VE H THESE RESULTS ARE FOR MEDICAL TREATMENT ONLYTHIS REPORT CONTAINS UNCONFIR MED SCREENING RESULTS*POSITIVE RESULTS WILL BE CONFIRMED BY REFERENCE LAB UPON R EQUEST CUT-OFFDRUG CLASS CONCENTRATION ng/mLAmphetamines 1000Methamphetamines 1000Cocaine 300Opiate 300Phencyc lidine 25Cannabinoid 50Barbiturates 300Benzodiazepine 300Methadone 300 This test p rovides only a screen. Positive results should be repeated by a confirmatory jourdan t.[facility] ParkwayUrine Methadone Brclxf5739-13-46 16:13:00* Test Item Value Reference Range Interpretation Comments Urine Methadone Screen (test code = 43644-0) NEGATIVE NEGATIVE THESE RESULTS ARE FOR MEDICAL TREATMENT ONLYTHIS REPORT CONTAINS UNCONFIR MED SCREENING RESULTS*POSITIVE RESULTS WILL BE CONFIRMED BY REFERENCE LAB UPON R EQUEST CUT-OFFDRUG CLASS CONCENTRATION ng/mLAmphetamines 1000Methamphetamines 1000Cocaine Metabolite 300Opiate 300Phencyc lidine 25Cannabinoid 50Barbiturates 300Benzodiazepine 300Methadone 300[facility] ParkwayUrine Opiates Dpxbkq6642-20-55 16:13:00* Test Item Value Reference Range Interpretation Comments Urine Opiates Screen (test code = 37862-9) POSITIVE NEGATIVE H ALL TESTS PERFORMED MANUALLY ON Gemmyo TOX/SEE TEST This test provides only a sc reen. Positive results should be repeated by a confirmatory test.[facility] ParkwayUrine Barbiturates Fnyyqf5345-54-69 16:13:00* Test Item Value Reference Range Interpretation Comments Urine Barbiturates Screen (test code = 855501921) NEGATIVE NEGA TIVE [facility] ParkwayUrine Phencyclidine Ariwos8313-60-96 16:13:00* Test Item Value Reference Range Interpretation Comments Urine Phencyclidine Screen (test code = 12504-0) NEGATIVE NEGAT ANGY [facility] ParkwayU[facility] Amphetamines Qgfwlo8269-16-20 16:13:00* Test Item Value Reference Range Interpretation Comments Urine Amphetamines Screen (test code = 53597-4) NEGATIVE NEGATI VE [facility] Methamphetamines Fzddsc2980-19-84 16:13:00* Test Item Value Reference Range Interpretation Comments Urine Methamphetamines Screen (test code = Urine Metha mphetamines Screen) NEGATIVE NEGATIVE [facility] Benzodiazepines Ytqbfs5644-26-62 16:13:00* Test Item Value Reference Range Interpretation Comments Urine Benzodiazepines Screen (test code = 22788-6) NEGATIVE NEG ATIVE [facility]way[facility] Cocaine Btvzxd7659-31-39 16:13:00* Test Item Value Reference Range Interpretation Comments Urine Cocaine Screen (test code = 3398-5) NEGATIVE NEGATIVE [facility]way[facility] Cannabinoids Iztsvb0437-64-40 16:13:00* Test Item Value Reference Range Interpretation Comments Urine Cannabinoids Screen (test code = 53598-7) POSITIVE NEGATI VE H THESE RESULTS ARE FOR MEDICAL TREATMENT ONLYTHIS REPORT CONTAINS UNCONFIR MED SCREENING RESULTS*POSITIVE RESULTS WILL BE CONFIRMED BY REFERENCE LAB UPON R EQUEST CUT-OFFDRUG CLASS CONCENTRATION ng/mLAmphetamines 1000Methamphetamines 1000Cocaine 300Opiate 300Phencyc lidine 25Cannabinoid 50Barbiturates 300Benzodiazepine 300Methadone 300 This test p rovides only a screen. Positive results should be repeated by a confirmatory jourdan t.[facility]way[facility] Methadone Daicsc6167-92-68 16:13:00* Test Item Value Reference Range Interpretation Comments Urine Methadone Screen (test code = 91494-3) NEGATIVE NEGATIVE THESE RESULTS ARE FOR MEDICAL TREATMENT ONLYTHIS REPORT CONTAINS UNCONFIR MED SCREENING RESULTS*POSITIVE RESULTS WILL BE CONFIRMED BY REFERENCE LAB UPON R EQUEST CUT-OFFDRUG CLASS CONCENTRATION ng/mLAmphetamines 1000Methamphetamines 1000Cocaine Metabolite 300Opiate 300Phencyc lidine 25Cannabinoid 50Barbiturates 300Benzodiazepine 300Methadone 300[facility] O[facility]ates Mopaiu8858-95-44 16:13:00* Test Item Value Reference Range Interpretation Comments Urine Opiates Screen (test code = 40822-6) POSITIVE NEGATIVE H ALL TESTS PERFORMED MANUALLY ON Gemmyo TOX/SEE TEST This test provides only a sc reen. Positive results should be repeated by a confirmatory test.[facility]way[facility] Barbiturates Jybspz7122-00-65 16:13:00* Test Item Value Reference Range Interpretation Comments Urine Barbiturates Screen (test code = 858618737) NEGATIVE NEGA TIVE [facility]way[facility] Phencyclidine Oyegjx4817-77-98 16:13:00* Test Item Value Reference Range Interpretation Comments Urine Phencyclidine Screen (test code = 11740-2) NEGATIVE NEGAT ANGY [facility]way[facility] Amphetamines Uaqyjm9456-49-68 16:13:00* Test Item Value Reference Range Interpretation Comments Urine Amphetamines Screen (test code = 92213-3) NEGATIVE NEGATI VE [facility]way[facility] Methamphetamines Salseu1995-24-69 16:13:00* Test Item Value Reference Range Interpretation Comments Urine Methamphetamines Screen (test code = Urine Metha mphetamines Screen) NEGATIVE NEGATIVE [facility]way[facility] Benzodiazepines Gjfxle3911-07-87 16:13:00* Test Item Value Reference Range Interpretation Comments Urine Benzodiazepines Screen (test code = 53186-3) NEGATIVE NEG ATIVE [facility] Cocaine Hzvgwg0806-25-25 16:13:00* Test Item Value Reference Range Interpretation Comments Urine Cocaine Screen (test code = 3398-5) NEGATIVE NEGATIVE [facility]wayU[facility] Cannabinoids Zfnucf1328-75-62 16:13:00* Test Item Value Reference Range Interpretation Comments Urine Cannabinoids Screen (test code = 62474-1) POSITIVE NEGATI VE H THESE RESULTS ARE FOR MEDICAL TREATMENT ONLYTHIS REPORT CONTAINS UNCONFIR MED SCREENING RESULTS*POSITIVE RESULTS WILL BE CONFIRMED BY REFERENCE LAB UPON R EQUEST CUT-OFFDRUG CLASS CONCENTRATION ng/mLAmphetamines 1000Methamphetamines 1000Cocaine 300Opiate 300Phencyc lidine 25Cannabinoid 50Barbiturates 300Benzodiazepine 300Methadone 300 This test p rovides only a screen. Positive results should be repeated by a confirmatory jourdan t.[facility]way[facility] Methadone Enrixx7746-82-14 16:13:00* Test Item Value Reference Range Interpretation Comments Urine Methadone Screen (test code = 93394-9) NEGATIVE NEGATIVE THESE RESULTS ARE FOR MEDICAL TREATMENT ONLYTHIS REPORT CONTAINS UNCONFIR MED SCREENING RESULTS*POSITIVE RESULTS WILL BE CONFIRMED BY REFERENCE LAB UPON R EQUEST CUT-OFFDRUG CLASS CONCENTRATION ng/mLAmphetamines 1000Methamphetamines 1000Cocaine Metabolite 300Opiate 300Phencyc lidine 25Cannabinoid 50Barbiturates 300Benzodiazepine 300Methadone 300[facility] CenterUrine Vxmzc7538-33-35 16:12:00* Test Item Value Reference Range Interpretation Comments Urine Color (test code = 5778-6) YELLOW YELLOW [facility]way[facility] Xqtkxxt8448-35-67 16:12:00* Test Item Value Reference Range Interpretation Comments Urine Clarity (test code = 54737-8) SL CLOUDY CLEAR H [facility]wayU[facility] Specific Teqwyvr9289-51-94 16:12:00 * Test Item Value Reference Range Interpretation Comments Urine Specific [place] (test code = 5811-5) 1.025 1.010-1.02 5 [facility]wayU[facility] oA5597-84-56 16:12:00* Test Item Value Reference Range Interpretation Comments Urine pH (test code = 26211-5) 6 5-7 [facility] Leukocyte Shnpexss4116-65-91 16:12:00* Test Item Value Reference Range Interpretation Comments Urine Leukocyte Esterase (test code = 06754-8) NEGATIVE NEGATIV E [facility]wayU[facility] Fsvvrdx7565-87-14 16:12:00* Test Item Value Reference Range Interpretation Comments Urine Nitrite (test code = 25581-8) NEGATIVE NEGATIVE [facility]wayU[facility] Dirrfko0733-58-98 16:12:00* Test Item Value Reference Range Interpretation Comments Urine Protein (test code = 75955-7) TRACE NEGATIVE H [facility]wayU[facility] Glucose (UA)2019-03-13 16:12:00* Test Item Value Reference Range Interpretation Comments Urine Glucose (UA) (test code = 55725-0) NEGATIVE NEGATIVE [facility]wayU[facility] Mjxkldl4351-09-61 16:12:00* Test Item Value Reference Range Interpretation Comments Urine Ketones (test code = 02641-5) TRACE NEGATIVE H [facility]wayU[facility] Binyidofjota2581-77-09 16:12:00* Test Item Value Reference Range Interpretation Comments Urine Urobilinogen (test code = 79508-9) 1 0.2-1 [facility]wayU[facility] Mvjupsqoz1055-85-09 16:12:00* Test Item Value Reference Range Interpretation Comments Urine Bilirubin (test code = 1977-8) SMALL NEGATIVE [facility]wayU[facility] Wrvfu2512-13-48 16:12:00* Test Item Value Reference Range Interpretation Comments Urine Blood (test code = 16786-5) 1+ NEGATIVE [facility]wayU[facility] Mtsep9345-92-88 16:12:00* Test Item Value Reference Range Interpretation Comments Urine Color (test code = 5778-6) YELLOW YELLOW [facility]wayU[facility] Suxpgmf4939-12-17 16:12:00* Test Item Value Reference Range Interpretation Comments Urine Clarity (test code = 57509-4) SL CLOUDY CLEAR H [facility]wayU[facility] Specific Xwztyaf7950-48-38 16:12:00 * Test Item Value Reference Range Interpretation Comments Urine Specific [place] (test code = 5811-5) 1.025 1.010-1.02 5 [facility]wayU[facility] wD3628-68-78 16:12:00* Test Item Value Reference Range Interpretation Comments Urine pH (test code = 00816-6) 6 5-7 [facility]way[facility] Leukocyte Ynzpvzig6016-51-01 16:12:00* Test Item Value Reference Range Interpretation Comments Urine Leukocyte Esterase (test code = 86632-5) NEGATIVE NEGATIV E [facility]wayU[facility] Knzqfqs1808-05-00 16:12:00* Test Item Value Reference Range Interpretation Comments Urine Nitrite (test code = 94635-0) NEGATIVE NEGATIVE [facility]wayU[facility] Brynkrb2339-19-26 16:12:00* Test Item Value Reference Range Interpretation Comments Urine Protein (test code = 28959-4) TRACE NEGATIVE H [facility]way[facility] Glucose (UA)2019-03-13 16:12:00* Test Item Value Reference Range Interpretation Comments Urine Glucose (UA) (test code = 38644-9) NEGATIVE NEGATIVE [facility]wayU[facility] Niffkrz3512-23-55 16:12:00* Test Item Value Reference Range Interpretation Comments Urine Ketones (test code = 91599-7) TRACE NEGATIVE H [facility]wayU[facility] Wgpauvezcmhg0370-07-30 16:12:00* Test Item Value Reference Range Interpretation Comments Urine Urobilinogen (test code = 18336-2) 1 0.2-1 [facility]wayU[facility] Dkbetdruz3653-36-03 16:12:00* Test Item Value Reference Range Interpretation Comments Urine Bilirubin (test code = 1977-8) SMALL NEGATIVE [facility]way[facility] Ylrqk4090-38-09 16:12:00* Test Item Value Reference Range Interpretation Comments Urine Blood (test code = 32127-8) 1+ NEGATIVE [facility]way[facility] Jqvqj7287-59-31 16:12:00* Test Item Value Reference Range Interpretation Comments Urine Color (test code = 5778-6) YELLOW YELLOW [facility]way[facility] Uxdkwjp1219-38-53 16:12:00* Test Item Value Reference Range Interpretation Comments Urine Clarity (test code = 40777-5) SL CLOUDY CLEAR H [facility]wayU[facility] Specific Glahyia2175-12-62 16:12:00 * Test Item Value Reference Range Interpretation Comments Urine Specific [place] (test code = 5811-5) 1.025 1.010-1.02 5 [facility]wayU[facility] yI6022-42-46 16:12:00* Test Item Value Reference Range Interpretation Comments Urine pH (test code = 53376-1) 6 5-7 [facility]way[facility] Leukocyte Ocynagar1000-99-05 16:12:00* Test Item Value Reference Range Interpretation Comments Urine Leukocyte Esterase (test code = 11305-1) NEGATIVE NEGATIV E [facility]wayU[facility] Xqzzvwp0933-15-03 16:12:00* Test Item Value Reference Range Interpretation Comments Urine Nitrite (test code = 71197-7) NEGATIVE NEGATIVE [facility]wayU[facility] Txmcbbe9275-34-69 16:12:00* Test Item Value Reference Range Interpretation Comments Urine Protein (test code = 91951-7) TRACE NEGATIVE H [facility] Glucose (UA)2019-03-13 16:12:00* Test Item Value Reference Range Interpretation Comments Urine Glucose (UA) (test code = 49108-1) NEGATIVE NEGATIVE [facility]way[facility] Yumjedx4351-86-08 16:12:00* Test Item Value Reference Range Interpretation Comments Urine Ketones (test code = 63121-2) TRACE NEGATIVE H [facility] Ymivqabcsomr1387-19-70 16:12:00* Test Item Value Reference Range Interpretation Comments Urine Urobilinogen (test code = 24551-1) 1 0.2-1 [facility]wayU[facility] Mbusykrph1408-66-26 16:12:00* Test Item Value Reference Range Interpretation Comments Urine Bilirubin (test code = 1977-8) SMALL NEGATIVE [facility]way[facility] Bnzdk8188-05-04 16:12:00* Test Item Value Reference Range Interpretation Comments Urine Blood (test code = 25170-7) 1+ NEGATIVE [facility] ParkwayAcetaminophen Orzmj8548-21-01 15:04:00* Test Item Value Reference Range Interpretation Comments Acetaminophen Level (test code = 84718-2) < 3 10-30 L [facility] ParkwayEthyl Alcohol Ntasi7369-57-78 15:04:00* Test Item Value Reference Range Interpretation Comments Ethyl Alcohol Level (test code = 5643-2) < 10.0 0.0-10.0 [facility]2019-11-11 15:04:00* Test Item Value Reference Range Interpretation Comments Salicylates Level (test code = 4024-6) < 5.0 0-30 [facility]wayAcetaminophen Hyhyd1562-71-66 15:04:00* Test Item Value Reference Range Interpretation Comments Acetaminophen Level (test code = 05959-8) < 3 10-30 L [facility] ParkwayEthyl Alcohol Iojlx4426-07-39 15:04:00* Test Item Value Reference Range Interpretation Comments Ethyl Alcohol Level (test code = 5643-2) < 10.0 0.0-10.0 [facility]2019-11-11 15:04:00* Test Item Value Reference Range Interpretation Comments Salicylates Level (test code = 4024-6) < 5.0 0-30 [facility]wayAcetaminophen Iqlpp3139-23-53 15:04:00* Test Item Value Reference Range Interpretation Comments Acetaminophen Level (test code = 39911-9) < 3 10-30 L [facility] ParkwayEthyl Alcohol Puqtg8820-32-58 15:04:00* Test Item Value Reference Range Interpretation Comments Ethyl Alcohol Level (test code = 5643-2) < 10.0 0.0-10.0 [facility]2019-11-11 15:04:00* Test Item Value Reference Range Interpretation Comments Salicylates Level (test code = 4024-6) < 5.0 0-30 [facility]wayAcetaminophen Lmzdb3196-72-84 15:04:00* Test Item Value Reference Range Interpretation Comments Acetaminophen Level (test code = 20103-2) < 3 10-30 L [facility] ParkwayEthyl Alcohol Zwmxl6894-84-51 15:04:00* Test Item Value Reference Range Interpretation Comments Ethyl Alcohol Level (test code = 5643-2) < 10.0 0.0-10.0 [facility]2019-11-11 15:04:00* Test Item Value Reference Range Interpretation Comments Salicylates Level (test code = 4024-6) < 5.0 0-30 [facility]2019-[facility]-13 14:46:00 [facility] [address] [address] Patient Name: QUYEN KIM MR #: [id number] : 1980 Age/Sex: 38/M Req #: [id number] Adm Physician: Ordered by: PAULINE DAMON MD, MD Report #: [id number] Location: ER Room/Bed: Procedure: [id number] D X/CHEST SINGLE (PORTABLE) Exam Date: 03/13/19 [...] 03/13/19 1446 COPY TO: PAULINE DAMON Sodium Rhtlp2580-09-84 14:43:00* Test Item Value Reference Range Interpretation Comments Sodium Level (test code = 2951-2) 136 136-145 [facility] CenterPotassium Prggp8972-76-25 14:43:00* Test Item Value Reference Range Interpretation Comments Potassium Level (test code = 2823-3) 3.6 3.5-5.1 [facility]wayChloride Rhvjj3197-57-81 14:43:00* Test Item Value Reference Range Interpretation Comments Chloride Level (test code = 2075-0) 103 98-107 [facility] ParkwayCarbon Dioxide Hqmio2960-83-79 14:43:00* Test Item Value Reference Range Interpretation Comments Carbon Dioxide Level (test code = 2028-9) 23 22-29 [facility] ParkwayAnion Sse2193-74-04 14:43:00* Test Item Value Reference Range Interpretation Comments Anion Gap (test code = 32469-3) 13.6 8-16 [facility]wayBlood Urea Ytfmgrkn2978-86-24 14:43:00* Test Item Value Reference Range Interpretation Comments Blood Urea Nitrogen (test code = 3094-0) 10 7-26 [facility]wayCreatinine2019-11-11 14:43:00* Test Item Value Reference Range Interpretation Comments Creatinine (test code = 2160-0) 1.48 0.72-1.25 H [facility] ParkwayBUN/Creatinine Wqfkj3431-59-05 14:43:00* Test Item Value Reference Range Interpretation Comments BUN/Creatinine Ratio (test code = 3097-3) 7 6-25 [facility] ParkwayEstimat Glomerular Filtration Rate 2019-03-13 14:43:00* Test Item Value Reference Range Interpretation Comments Estimat Glomerular Filtration Rate (test code = 923606454) > 60 >60 Ranges were taken from the National Kidney Disease Education Program and the [facility] literature.Reference ranges:60 or greater: Wxpyvg00-73 ( for 3 consecutive months): Chronic kidney disease 15 or less: Kidney failureW[facility] Health Surgical Hospital at ParkwayGlucose Nsbvf8229-28-46 14:43:00* Test Item Value Reference Range Interpretation Comments Glucose Level (test code = GWE3315) 84 74-118 [facility] ParkwayCalcium Loano1495-75-51 14:43:00* Test Item Value Reference Range Interpretation Comments Calcium Level (test code = 78019-3) 9.5 8.4-10.2 [facility] ParkwayMagnesium Ohrnz6620-49-20 14:43:00* Test Item Value Reference Range Interpretation Comments Magnesium Level (test code = 74640-9) 1.7 1.3-2.1 [facility] ParkwayTotal Hskhvibwb0847-76-17 14:43:00* Test Item Value Reference Range Interpretation Comments Total Bilirubin (test code = 1975-2) 0.4 0.2-1.2 [facility] ParkwayAspartate Amino Transf (AST/SGOT) 2019-03-13 14:43:00* Test Item Value Reference Range Interpretation Comments Aspartate Amino Transf (AST/SGOT) (test code = Aspartate Amino Transf (AST/SGOT)) 26 5-34 [facility] ParkwayAlanine Aminotransferase (ALT/SGPT) 2019-03-13 14:43:00* Test Item Value Reference Range Interpretation Comments Alanine Aminotransferase (ALT/SGPT) (test code = 1742-6) 31 0-55 [facility] ParkwayTotal Ggotcur7800-32-80 14:43:00* Test Item Value Reference Range Interpretation Comments Total Protein (test code = 2885-2) 7.7 6.5-8.1 [facility] ParkwayAlbumin2019-11-11 14:43:00* Test Item Value Reference Range Interpretation Comments Albumin (test code = 1751-7) 3.8 3.5-5.0 [facility] ParkwayGlobulin2019-11-11 14:43:00* Test Item Value Reference Range Interpretation Comments Globulin (test code = 73769-6) 3.9 2.3-3.5 H [facility] ParkwayAlbumin/Globulin Gowjv4213-37-68 14:43:00 * Test Item Value Reference Range Interpretation Comments Albumin/Globulin Ratio (test code = 1759-0) 1.0 0.8-2.0 [facility] ParkwayAlkaline Jfopyzorafn5074-82-63 14:43:00* Test Item Value Reference Range Interpretation Comments Alkaline Phosphatase (test code = 6768-6) 75 40-150 [facility] ParkwayLipase2019-11-11 14:43:00* Test Item Value Reference Range Interpretation Comments Lipase (test code = 3040-3) 12 8-78 [facility] ParkwayMagnesium Ebdho9854-77-46 14:43:00* Test Item Value Reference Range Interpretation Comments Magnesium Level (test code = 12100-5) 1.7 1.3-2.1 [facility] ParkwayMagnesium Jyzio0267-26-67 14:43:00* Test Item Value Reference Range Interpretation Comments Magnesium Level (test code = 54774-0) 1.7 1.3-2.1 [facility] ParkwayWhite Blood Zhgwb2044-86-69 14:22:00* Test Item Value Reference Range Interpretation Comments White Blood Count (test code = 6690-2) 3.05 4.8-10.8 L [facility] ParkwayRed Blood Ldrea0797-82-47 14:22:00* Test Item Value Reference Range Interpretation Comments Red Blood Count (test code = 789-8) 3.51 4.3-5.7 L [facility] ParkwayHemoglobin2019-11-11 14:22:00* Test Item Value Reference Range Interpretation Comments Hemoglobin (test code = 59510-7) 11.5 14.0-18.0 L [facility] ParkwayHematocrit2019-11-11 14:22:00* Test Item Value Reference Range Interpretation Comments Hematocrit (test code = 4544-3) 33.3 38.2-49.6 L [facility] ParkwayMean Corpuscular Uabdbv4683-71-18 14:22:00* Test Item Value Reference Range Interpretation Comments Mean Corpuscular Volume (test code = 787-2) 94.9 81-99 [facility] ParkwayMean Corpuscular Ejakadoxmo4209-25-01 14:22:00* Test Item Value Reference Range Interpretation Comments Mean Corpuscular Hemoglobin (test code = 785-6) 32.8 28-32 H [facility] Corpuscular Hemoglobin Concent 2019-03-13 14:22:00* Test Item Value Reference Range Interpretation Comments Mean Corpuscular Hemoglobin Concent (test code = 786-4) 34.5 31-35 [facility] ParkwayRed Cell Distribution Inesh1395-72-04 14:22:00* Test Item Value Reference Range Interpretation Comments Red Cell Distribution Width (test code = 87218-8) 11.7 11.7 -14.4 [facility] ParkwayPlatelet Wthir9912-88-67 14:22:00* Test Item Value Reference Range Interpretation Comments Platelet Count (test code = 777-3) 189 140-360 [facility]wayNeutrophils (%) (Auto)2019-03-13 14:22:00 * Test Item Value Reference Range Interpretation Comments Neutrophils (%) (Auto) (test code = 94090-5) 53.1 38.7-80.0 [facility] ParkwayLymphocytes (%) (Auto)2019-03-13 14:22:00 * Test Item Value Reference Range Interpretation Comments Lymphocytes (%) (Auto) (test code = 736-9) 33.1 18.0-39.1 [facility]wayMonocytes (%) (Auto)2019-03-13 14:22:00* Test Item Value Reference Range Interpretation Comments Monocytes (%) (Auto) (test code = 5905-5) 10.8 4.4-11.3 [facility]wayEosinophils (%) (Auto)2019-03-13 14:22:00 * Test Item Value Reference Range Interpretation Comments Eosinophils (%) (Auto) (test code = 713-8) 2.0 0.0-6.0 [facility]wayBasophils (%) (Auto)2019-03-13 14:22:00* Test Item Value Reference Range Interpretation Comments Basophils (%) (Auto) (test code = 706-2) 0.3 0.0-1.0 [facility] ParkwayIM GRANULOCYTES %2019-03-13 14:22:00* Test Item Value Reference Range Interpretation Comments IM GRANULOCYTES % (test code = IM GRANULOCYTES %) 0.7 0.0- 1.0 [facility]wayNeutrophils # (Auto)2019-03-13 14:22:00* Test Item Value Reference Range Interpretation Comments Neutrophils # (Auto) (test code = 751-8) 1.6 2.1-6.9 L [facility] ParkwayLymphocytes # (Auto)2019-03-13 14:22:00* Test Item Value Reference Range Interpretation Comments Lymphocytes # (Auto) (test code = 40833-9) 1.0 1.0-3.2 [facility]wayMonocytes # (Auto)2019-03-13 14:22:00* Test Item Value Reference Range Interpretation Comments Monocytes # (Auto) (test code = 742-7) 0.3 0.2-0.8 [facility]wayEosinophils # (Auto)2019-03-13 14:22:00* Test Item Value Reference Range Interpretation Comments Eosinophils # (Auto) (test code = 711-2) 0.1 0.0-0.4 [facility]wayBasophils # (Auto)2019-03-13 14:22:00* Test Item Value Reference Range Interpretation Comments Basophils # (Auto) (test code = 704-7) 0.0 0.0-0.1 [facility] ParkwayAbsolute Immature Granulocyte (auto 2019-03-13 14:22:00* Test Item Value Reference Range Interpretation Comments Absolute Immature Granulocyte (auto (jourdan t code = Absolute Immature Granulocyte (auto) 0.02 0-0.1 [facility] blood eosinophil count as percentage of total dzhpkyuovh8615-49-68 12:55:00* Test Item Value Reference Range Interpretation Comments Eosinophils % (Manual) (test code = 714-6) 3 0-7 [facility] blood metamyelocytes/100 ihyfemohyr1700-75-68 12:55:00* Test Item Value Reference Range Interpretation Comments Metamyelocytes % (test code = 740-1) 1 0-0 [facility] anisocytosis detection by light ccwgdhyqic6815-28-91 12:55:00* Test Item Value Reference Range Interpretation Comments Anisocytosis (test code = 702-1) SLIGHT [facility] [place] bodies detection by light zkdlpjcwtd3864-39-86 12:55:00* Test Item Value Reference Range Interpretation Comments [place] Bodies (test code = 7793-3) FEW [facility] Edinburgerum or plasma acetaminophen measurement by screening method (mass/volume)2019-03-13 12:55:00* Test Item Value Reference Range Interpretation Comments Acetaminophen Level (test code = 12567-9) < 3 10-30 [facility] Edinburgerum or plasma ethanol measurement (mass/volume)2019-03-13 12:55:00* Test Item Value Reference Range Interpretation Comments Ethyl Alcohol Level (test code = 5643-2) < 10.0 0.0-10.0 [facility] or plasma salicylates measurement (mass/volume)2019-03-13 12:55:00* Test Item Value Reference Range Interpretation Comments Salicylates Level (test code = 4024-6) < 5.0 0-30 [facility] blood eosinophil count as percentage of total chehffzsaj6204-35-44 12:55:00* Test Item Value Reference Range Interpretation Comments Eosinophils % (Manual) (test code = 714-6) 3 0-7 [facility] blood metamyelocytes/100 otnqnnercp3194-11-32 12:55:00* Test Item Value Reference Range Interpretation Comments Metamyelocytes % (test code = 740-1) 1 0-0 [facility] anisocytosis detection by light kkbjpgaqtx1569-45-23 12:55:00* Test Item Value Reference Range Interpretation Comments Anisocytosis (test code = 702-1) SLIGHT [facility] [place] bodies detection by light bsgudvaraj3017-80-58 12:55:00* Test Item Value Reference Range Interpretation Comments [place] Bodies (test code = 7793-3) FEW [facility] or plasma acetaminophen measurement by screening method (mass/volume)2019-03-13 12:55:00* Test Item Value Reference Range Interpretation Comments Acetaminophen Level (test code = 55588-6) < 3 10-30 [facility] or plasma ethanol measurement (mass/volume)2019-03-13 12:55:00* Test Item Value Reference Range Interpretation Comments Ethyl Alcohol Level (test code = 5643-2) < 10.0 0.0-10.0 [facility] or plasma salicylates measurement (mass/volume)2019-03-13 12:55:00* Test Item Value Reference Range Interpretation Comments Salicylates Level (test code = 4024-6) < 5.0 0-30 [facility] count as percentage of total pepmvikmai5778-48-55 12:55:00* Test Item Value Reference Range Interpretation Comments Eosinophils % (Manual) (test code = 714-6) 3 0-7 [facility] blood metamyelocytes/100 guubacxdeb6151-72-75 12:55:00* Test Item Value Reference Range Interpretation Comments Metamyelocytes % (test code = 740-1) 1 0-0 [facility] anisocytosis detection by light fzwozzfyer9675-32-01 12:55:00* Test Item Value Reference Range Interpretation Comments Anisocytosis (test code = 702-1) SLIGHT [facility] [place] bodies detection by light lzkthvjlwb8635-77-89 12:55:00* Test Item Value Reference Range Interpretation Comments [place] Bodies (test code = 7793-3) FEW [facility] or plasma acetaminophen measurement by screening method (mass/volume)2019-03-13 12:55:00* Test Item Value Reference Range Interpretation Comments Acetaminophen Level (test code = 55174-5) < 3 10-30 [facility] or plasma ethanol measurement (mass/volume)2019-03-13 12:55:00* Test Item Value Reference Range Interpretation Comments Ethyl Alcohol Level (test code = 5643-2) < 10.0 0.0-10.0 [facility] or plasma salicylates measurement (mass/volume)2019-03-13 12:55:00* Test Item Value Reference Range Interpretation Comments Salicylates Level (test code = 4024-6) < 5.0 0-30 [facility] blood eosinophil count as percentage of total zozcdcundo0030-01-50 12:55:00* Test Item Value Reference Range Interpretation Comments Eosinophils % (Manual) (test code = 714-6) 3 0-7 [facility] blood metamyelocytes/100 whbuikqdif0760-36-59 12:55:00* Test Item Value Reference Range Interpretation Comments Metamyelocytes % (test code = 740-1) 1 0-0 [facility] anisocytosis detection by light mvrudigwqk7515-80-37 12:55:00* Test Item Value Reference Range Interpretation Comments Anisocytosis (test code = 702-1) SLIGHT [facility] [place] bodies detection by light sqonllcutj4364-77-02 12:55:00* Test Item Value Reference Range Interpretation Comments [place] Bodies (test code = 7793-3) FEW [facility] or plasma acetaminophen measurement by screening method (mass/volume)2019-03-13 12:55:00* Test Item Value Reference Range Interpretation Comments Acetaminophen Level (test code = 97165-3) < 3 10-30 [facility] or plasma ethanol measurement (mass/volume)2019-03-13 12:55:00* Test Item Value Reference Range Interpretation Comments Ethyl Alcohol Level (test code = 5643-2) < 10.0 0.0-10.0 [facility] or plasma salicylates measurement (mass/volume)2019-03-13 12:55:00* Test Item Value Reference Range Interpretation Comments Salicylates Level (test code = 4024-6) < 5.0 0-30 [facility] blood eosinophil count as percentage of total moddxeuaut5904-37-67 12:55:00* Test Item Value Reference Range Interpretation Comments Eosinophils % (Manual) (test code = 714-6) 3 0-7 [facility] blood metamyelocytes/100 wdsbjshyww6469-43-46 12:55:00* Test Item Value Reference Range Interpretation Comments Metamyelocytes % (test code = 740-1) 1 0-0 [facility] detection by light dpqxplqrzs9862-50-85 12:55:00* Test Item Value Reference Range Interpretation Comments Anisocytosis (test code = 702-1) SLIGHT [facility] [place] bodies detection by light vrfeqkapzm2588-20-75 12:55:00* Test Item Value Reference Range Interpretation Comments [place] Bodies (test code = 7793-3) FEW [facility] or plasma acetaminophen measurement by screening method (mass/volume)2019-03-13 12:55:00* Test Item Value Reference Range Interpretation Comments Acetaminophen Level (test code = 25679-9) < 3 10-30 [facility] or plasma ethanol measurement (mass/volume)2019-03-13 12:55:00* Test Item Value Reference Range Interpretation Comments Ethyl Alcohol Level (test code = 5643-2) < 10.0 0.0-10.0 [facility] or plasma salicylates measurement (mass/volume)2019-03-13 12:55:00* Test Item Value Reference Range Interpretation Comments Salicylates Level (test code = 4024-6) < 5.0 0-30 [facility] crystals detection in urine sediment by light rrbxonfiio4340-43-28 11:35:00* Test Item Value Reference Range Interpretation Comments Urine Calcium Carbonate Crystals (test code = 5773-7) MANY NONE [facility] crystals detection in urine sediment by light rkbkysefbo7364-36-93 11:35:00* Test Item Value Reference Range Interpretation Comments Urine Calcium Carbonate Crystals (test code = 5773-7) MANY NONE [facility] crystals detection in urine sediment by light uzkarqwixy3960-65-13 11:35:00* Test Item Value Reference Range Interpretation Comments Urine Calcium Carbonate Crystals (test code = 5773-7) MANY NONE [facility] crystals detection in urine sediment by light eqahidvjdb8177-22-48 11:35:00* Test Item Value Reference Range Interpretation Comments Urine Calcium Carbonate Crystals (test code = 5773-7) MANY NONE [facility] crystals detection in urine sediment by light cctzsyqmcc4831-34-89 11:35:00* Test Item Value Reference Range Interpretation Comments Urine Calcium Carbonate Crystals (test code = 5773-7) MANY NONE [facility] DUP AB/PEL/SC KGSY7261-00-54 11:31:00 Name: QUYEN KIM [facility] : 1980 Age/S: 38 / M [address] [facility] Unit #: [id number] Loc: [place] [address] Phys: Freddie Lira MD Acct: [id number] Di s Date: Status: REG ER PHONE #: Exam Date: 02/28/2019 1110 FAX #: [phone] Reason: scrotal pain EXAMS: CPT CODE: [id number] DUP AB/PEL/SC COMP 54285 REASON FOR EXAM: testicul ar pain, vomiting [...] 1 Signed Report (CONTINUED) Name: QUYEN KIM [facility] : 1980 Age/S: 38 / M [address] Unit #: [id number] Loc: [place] [address] Phys: Kyra Lira MD Acct: [id number] Dis Date: St atus: REG ER PHONE #: [phone] Exam Theodore e: 02/28/2019 1110 FAX #: [phone] Reason: scrotal pain EXAMS: CPT CODE: [id number] DUP AB/PEL/SC COMP 94141 <Continued> personal/family history of germ cell tumour maldescent orchidopexy testicular atrophy No evidence of torsion or orchitis. at 1131 Reported and signed by: Alli Felipe MD CC: Kyra Lira MD Technologist: ARNULFO COATS RT(R),[facility] Date/Time: 02/28/2019 (1131) t.SDR.RR31 PAGE 2 Signed Report - US SCROTUM AND [id number] 11:31:00 Name: QUYEN KIM [facility] : 1980 Age/S: 38 / M [address] Unit #: [id number] Loc: [place] [address] Phys: Kyra Lira MD Acct: [id number] Dis Date: Status: REG ER PHONE #: [phone] Exam Date: 02/28/2019 1110 FAX #: [phone] Reason: testicular pain, vomiting EXAMS: CPT CODE: [id number] US SCROTUM AND CNTS 82370 REASON FOR EXAM: testicular pain, vomiting EXAM [...] 1 Signed Report (CONTINUED) Name: QUYEN KIM [facility] : 1980 Age/S: 38 / M [address] [facility] Unit #: [id number] Loc: [facility] [place] [address] Phys: Kyra Lira MD Acct: [id number] Dis Date: Status: REG ER PHONE #: [phone] Exam Date: 02/28/2019 1110 FAX #: [phone] Reason: testicular pain, vomiting EXAMS: CPT CODE: [id number] US SCROTUM AND CNTS 84187 <Continued> personal/family history of germ cell tumour maldescent orchidopexy testicular atrophy No evidence of torsion or orchitis. at 1131 Reported and signed by: Alli Felipe MD CC: Kyra Lira MD Technologist: ARNULFO COATS RT(R),[facility] Date/Time: 02/28/2019 (113) [email or web address].FAVIANR.RR31 Orig Print D/T: S: 02/28/2019 (1134) Probe: PAGE 2 Signed Report DRUGS OF ABUSE SCREEN [id number] 10:46:00* Test Item Value Reference Range Interpretation [...] [place]) NEGATIVE <300 ng/mL [facility] QONCDXON9944-72-64 10:32:00* Test Item Value Reference Range Interpretation [...] Urine Source? Clean CatchDRUGS OF ABUSE SCREEN LX2574-01-25 10:32:00* Test Item Value Reference Range Interpretation [...] [place]) <300 ng/mL ADD ON AT [address] [place] [address] W/O [id number] 10:13:00* Test Item Value Reference Range Interpretation [...] MPV) 11.4 fL 6.7-11.0 H BASIC METABOLIC WGSJJ0035-65-81 10:10:00* Test Item Value Reference Range Interpretation [...] CA) 9.8 mg/dL 8.5-10.1 N HEPATIC FUNCTION [id number] 10:10:00* Test Item Value Reference Range Interpretation [...] reference range due to change in reagent. KWXNUX5212-49-73 10:10:00* Test Item Value Reference Range Interpretation Comments LIPASE (test code = LIP) 123 U/L 73.0-393.0 N [id number]-Z9997-77-29 10:10:00* Test Item Value Reference Range Interpretation Comments TROPONIN-I (test code = TROPI) <0.015 ng/mL 0-0.045 N BASIC METABOLIC [id number] 09:58:00* Test Item Value Reference Range Interpretation [...] code = CA) mg/dL 8.5-10.1 HEPATIC FUNCTION [id number] 09:58:00* Test Item Value Reference Range Interpretation [...] TOTAL (test code = ALKP) IUnit/L 45-117 LDAAIC9720-87-38 09:58:00* Test Item Value Reference Range Interpretation Comments LIPASE (test code = LIP) U/L 73.0-393.0 [id number]-I1778-35-29 09:58:00* Test Item Value Reference Range Interpretation Comments TROPONIN-I (test code = TROPI) ng/mL 0-0.045 - CT ABD PELVIS W/O [id number] 09:34:00 Name: QUYEN KIM [facility] : 1980 Age/S: 38 / M [address] Unit #: [id number] Loc: [place] [address] Phys: Kyra Lira MD Acct: [id number] Dis Date: Status: REG ER PHONE #: [phone] Exam Date: 02/28/2019 0905 FAX #: [phone] Reason: LLQ ttp, vomiting EXAMS: CPT CODE: [id number] CT ABD PELVIS W/O CONT 05254 REASON FOR EXAM: LLQ ttp, vomiting EXAM [...] Signed Re port (CONTINUED) Name: QUYEN KIM [facility] : 1980 Age/S: 38 / M [address] Unit #: [id number] Loc: [place] [address] Phys: Kyra Lira MD Acct: [id number] Dis Date: Status: REG ER PHONE #: [phone] Exam Date: 02/28/2019 09 FAX #: [phone] Reason: LLQ ttp, vomiting EXAMS: CPT CODE: [id number] CT ABD PELVIS W/O CONT 13797 <Continued> Abdominal vascular structures: Circumaortic left renal [...] tract in the left lower abdomen. [facility] at 0934 Reported and signed by: Alli Felipe MD CC: Kyra Lira MD Technologist:Radames Chang RT(R),(MR),(CT) CTDI: DLP: [facility] Date/Time: 02/28/2019 (0934) [email or web address].SDR.RR31 Orig Print D/T: S: 02/28/2019 (0937) PAGE 2 Signed Report - CT ABD PELVIS W/O [id number] 16:32:00 Name: QUYEN KIM [facility] : 1980 Age/S: 38 / M [address] Unit #: [id number] Loc: [place] [address] Phys: Trudy Benjamin NP Acct: [id number] Dis Date: Status: REG ER PHONE #: [phone] Exam Date: 02/24/2019 1430 FAX #: [phone] Reason: abdominal pain EXAMS: CPT CODE: [id number] CT ABD PELVIS W/O CONT 59245 REASON FOR EXAM: abdominal pain EXAM ORDER [...] 1 Signed Report (CONTINUED) Name: QUYEN KIM [facility] : 1980 Age/S: 38 / M [address] Unit #: [id number] Loc: [place] [address] Phys: Trudy Benjamin NP Acct: [id number] Dis Date: Status: REG ER PHONE #: [phone] Exam Date: 02/24/2019 1430 FAX #: [phone] Reason: abdominal pain EXAMS: CPT CODE: [id number] CT ABD PELVIS W/O CONT 14752 < Continued> grossly normal Peritoneum and retroperitoneum: [...] inguinal canal. Correlate with physical exam. Location[facility] at 1632 Reported and signed by: Alli Felipe MD CC: Trudy Benjamin ASSOCIATE DIRECTOR OF SALES; Melyssa Ramirez DO Technologist:Pavel Maciel RT(R) CTDI: DLP: [facility] Date/Time: 02/24/2019 (8222) t.SDR.RR31 Orig Print D/T: S: 02/24/2019 (0226) PAGE 2 Signed Report DRUGS OF ABUSE [...] NEGATIVE <300 ng/mL DRUGS OF ABUSE SCREEN [id number] 16:07:00* Test Item Value Reference Range Interpretation [...] code = [place]) NEGATIVE <300 ng/mL URINALYSIS [id number] 15:47:00* Test Item Value Reference Range Interpretation [...] FEW A Urine Source? Clean CatchBASIC METABOLIC [id number] 14:12:00* Test Item Value Reference Range Interpretation [...] CA) 9.9 mg/dL 8.5-10.1 N HEPATIC FUNCTION [id number] 14:12:00* Test Item Value Reference Range Interpretation [...] reference range due to change in reagent. [id number] 14:12:00* Test Item Value Reference Range Interpretation Comments LIPASE (test code = LIP) 80 U/L 73.0-393.0 N BASIC METABOLIC [id number] 14:00:00* Test Item Value Reference Range Interpretation [...] code = CA) mg/dL 8.5-10.1 HEPATIC FUNCTION [id number] 14:00:00* Test Item Value Reference Range Interpretation [...] TOTAL (test code = ALKP) IUnit/L 45-117 [id number] 14:00:00* Test Item Value Reference Range Interpretation Comments LIPASE (test code = LIP) U/L 73.0-393.0 CBC W/O [id number] 13:50:00* Test Item Value Reference Range Interpretation [...] MPV) 10.4 fL 6.7-11.0 N CBC W/O [id number] 13:49:00* Test Item Value Reference Range Interpretation [...]
[2020-01-19] MEDS ORDERED: DICYCLOMINE HCL 20 MG/2 ML VIAL IM ONE (11:30)
[2020-01-19 11:51] VITALS: BP 164/76
== END 2020-01-19 11:54 | disposition home or self-care (01) ==
LOC: ER 10:30
DX: R11.2 Nausea with vomiting, unspecified (principal); F12.90 Cannabis use, unspecified, uncomplicated; F14.10 Cocaine abuse, uncomplicated; I10 Essential (primary) hypertension; B20 Human immunodeficiency virus [HIV] disease
CPT/HCPCS: 99283; J0500; J2405; J7030

== ENCOUNTER 2020-07-30 08:26 | Emergency (ER) | payer SELFPAY ==
[~2020-07-30] VITALS: Ht 200.7 cm; Wt 49.9 kg
[2020-07-30 08:44] LABS: BASOPHILS % 0.5 % (0.0-1.0); EOSINOPHILS % 0.1 % (0.0-6.0); HEMATOCRIT 45.1 % (38.2-49.6); HEMOGLOBIN 15.1 g/dL (14.0-18.0); LYMPHOCYTES # (AUTO) 3.1 (1.0-3.2); LYMPHOCYTES % 39.3 % (18.0-39.1); MEAN CORPUSCULAR HEMOGLOBIN 31.9 pg (28-32); MEAN CORPUSCULAR HGB CONC 33.5 g/dL (31-35); MEAN CORPUSCULAR VOLUME 95.1 fL (81-99); MONOCYTES # (AUTO) 0.8 (0.2-0.8); MONOCYTES % 10.3 % (4.4-11.3); NEUTROPHILS # (AUTO) 3.9 (2.1-6.9); NEUTROPHILS % 49.3 % (38.7-80.0); PLATELET COUNT 268 x10e3/uL (140-360); RED BLOOD COUNT 4.74 x10e6/uL (4.3-5.7); RED CELL DISTRIBUTION WIDTH 14.6 % (11.7-14.4)
[2020-07-30] MEDS: HALOPERIDOL LACTATE 5 MG/ML VIAL IM NR (08:51)
[2020-07-30] MEDS: SODIUM CHLORIDE 0.9% 1000ML 1,000 ML IV STA (08:51)
[2020-07-30] MEDS: PANTOPRAZOLE 40 MG 10ML VIAL IV NR (09:05)
[2020-07-30 09:38] LABS: ALBUMIN 4.6 g/dL (3.5-5.0); ALBUMIN/GLOBULIN RATIO 0.8 (0.8-2.0); ANION GAP 18.4 mmol/L (8-16); CALCIUM 9.6 mg/dL (8.4-10.2); CREATININE, SERUM 1.78 mg/dL (0.72-1.25); POTASSIUM 3.4 mmol/L (3.5-5.1)
[2020-07-30] MEDS ORDERED: HALOPERIDOL1 MG PO (09:50)
[2020-07-30] MEDS: LACTATED RINGER'S 1,000 ML INJ ONE (09:52)
== END 2020-07-30 11:11 | disposition home or self-care (01) ==
LOC: ER 08:34
DX: R11.2 Nausea with vomiting, unspecified (principal); R10.9 Unspecified abdominal pain; R19.7 Diarrhea, unspecified; I10 Essential (primary) hypertension; B20 Human immunodeficiency virus [HIV] disease
CPT/HCPCS: 36415; 80053; 83690; 85025; 99282; C9113; J1630; J7030; J7121

== ENCOUNTER 2021-03-20 07:19 | Emergency (ER) | payer MEDICAID ==
[~2021-03-20] VITALS: Ht 200.7 cm; Wt 49.9 kg
[2021-03-20] MEDS ORDERED: SODIUM CHLORIDE 0.9% 1000ML 1,000 ML IV STA (07:35)
[2021-03-20 07:58] LABS: BASOPHILS % 0.4 % (0.0-1.0); HEMATOCRIT 52.1 % (38.2-49.6); HEMOGLOBIN 16.4 g/dL (14.0-18.0); LYMPHOCYTES # (AUTO) 1.6 (1.0-3.2); LYMPHOCYTES % 23.7 % (18.0-39.1); MEAN CORPUSCULAR HEMOGLOBIN 30.4 pg (28-32); MEAN CORPUSCULAR HGB CONC 31.5 g/dL (31-35); MEAN CORPUSCULAR VOLUME 96.5 fL (81-99); MONOCYTES # (AUTO) 0.3 (0.2-0.8); MONOCYTES % 3.8 % (4.4-11.3); NEUTROPHILS # (AUTO) 4.9 (2.1-6.9); PLATELET COUNT 225 x10e3/uL (140-360); RED CELL DISTRIBUTION WIDTH 12.7 % (11.7-14.4)
[2021-03-20] MEDS ORDERED: HALOPERIDOL LACTATE 5 MG/ML VIAL IV ONE (08:30)
[2021-03-20 09:14] LABS: ALBUMIN 4.8 g/dL (3.5-5.0); ALBUMIN/GLOBULIN RATIO 0.8 (0.8-2.0); CALCIUM 10.2 mg/dL (8.4-10.2); CREATININE, SERUM 4.26 mg/dL (0.72-1.25)
[2021-03-20] MEDS ORDERED: DONNATAL/LIDOCAINE/MAALOX 30 ML SUSP PO ONE ×2 (09:45→11:00)
[2021-03-20] MEDS ORDERED: KETOROLAC TROMETHAMINE 30 MG/ML VIAL IV ONE (10:00)
[2021-03-20] MEDS ORDERED: PROMETHAZINE HC25 M1 PO (12:19)
[2021-03-20] MEDS ORDERED: PEPCID20 MG PO (12:19)
[2021-03-20 13:40] VITALS: BP 134/99
== END 2021-03-20 12:45 | disposition home or self-care (01) ==
LOC: ER 07:45
DX: R11.2 Nausea with vomiting, unspecified (principal); F12.90 Cannabis use, unspecified, uncomplicated; N20.0 Calculus of kidney; I10 Essential (primary) hypertension; Z20.822 Contact with and (suspected) exposure to COVID-19; B20 Human immunodeficiency virus [HIV] disease
CPT/HCPCS: 36415; 74176; 80053; 85025; 99284; J1630; J1885; J7030; U0002

== ENCOUNTER 2021-03-22 18:40 | Emergency (ER) | payer MEDICAID ==
[~2021-03-22] VITALS: Ht 200.7 cm; Wt 49.9 kg
[~2021-03-22 18:40] MED LIST changes: +PEPCID20 MG PO; +PROMETHAZINE HC25 M1 PO
[2021-03-22] MEDS ORDERED: SODIUM CHLORIDE 0.9% 1000ML 1,000 ML IV STA ×2 (19:15)
[2021-03-22 19:27] LABS: BASOPHILS % 0.2 % (0.0-1.0); HEMATOCRIT 43.7 % (38.2-49.6); HEMOGLOBIN 14.7 g/dL (14.0-18.0); LYMPHOCYTES # (AUTO) 1.5 (1.0-3.2); LYMPHOCYTES % 30.2 % (18.0-39.1); MEAN CORPUSCULAR HEMOGLOBIN 30.7 pg (28-32); MEAN CORPUSCULAR HGB CONC 33.6 g/dL (31-35); MEAN CORPUSCULAR VOLUME 91.2 fL (81-99); MONOCYTES # (AUTO) 0.6 (0.2-0.8); MONOCYTES % 11.4 % (4.4-11.3); PLATELET COUNT 196 x10e3/uL (140-360); RED BLOOD COUNT 4.79 x10e6/uL (4.3-5.7); RED CELL DISTRIBUTION WIDTH 11.8 % (11.7-14.4)
[2021-03-22] MEDS ORDERED: HALOPERIDOL LACTATE 5 MG/ML VIAL IV ONE (19:30)
[2021-03-22 20:01] LABS: ALBUMIN 4.5 g/dL (3.5-5.0); ALBUMIN/GLOBULIN RATIO 0.9 (0.8-2.0); ANION GAP 19.6 mmol/L (8-16); CALCIUM 9.6 mg/dL (8.4-10.2); CREATININE, SERUM 2.61 mg/dL (0.72-1.25); POTASSIUM 3.6 mmol/L (3.5-5.1)
[2021-03-22 21:49] LABS: CLARITY,URINE HAZY (CLEAR); COLOR,URINE YELLOW (YELLOW); KETONES,URINE TRACE (NEGATIVE); LEUKOCYTE ESTERASE ,URINE NEGATIVE (NEGATIVE); NITRITE,URINE NEGATIVE (NEGATIVE); PROTEIN,URINE DIPSTICK TRACE (NEGATIVE); URINE UROBILINOGEN 0.2 mg/dL (0.2 - 1)
[2021-03-22 21:52] LABS: AMORPHOUS SEDIMENT,URINE FEW (FEW); BACTERIA,URINE FEW /HPF; EPITHELIAL CELLS,URINE FEW /LPF; MUCUS,URINE FEW (RARE)
[2021-03-22 22:01] LABS: ANION GAP 14.5 mmol/L (8-16); CALCIUM 7.2 mg/dL (8.4-10.2); CREATININE, SERUM 1.88 mg/dL (0.72-1.25); POTASSIUM 3.5 mmol/L (3.5-5.1)
[2021-03-22] MEDS ORDERED: HALDOL1 MG PO (22:29)
[2021-03-22] MEDS ORDERED: FLOMAX0.4 MG PO (22:46)
== END 2021-03-22 22:51 | disposition home or self-care (01) ==
LOC: ER 18:54
DX: R10.13 Epigastric pain (principal); R11.2 Nausea with vomiting, unspecified; F12.90 Cannabis use, unspecified, uncomplicated; N20.0 Calculus of kidney; N28.9 Disorder of kidney and ureter, unspecified
CPT/HCPCS: 36415; 80048; 80053; 81001; 83690; 85025; 93005; 99284; J1630; J7030

== ENCOUNTER 2021-10-04 07:37 | Emergency (ER) | payer MEDICAID ==
[~2021-10-04] VITALS: Ht 200.7 cm; Wt 70.8 kg
[~2021-10-04 07:37] MED LIST changes: +FLOMAX0.4 MG PO; +HALDOL1 MG PO
[2021-10-04] MEDS ORDERED: SODIUM CHLORIDE 0.9% 1000ML 1,000 ML IV STA (07:47)
[2021-10-04] MEDS ORDERED: HALOPERIDOL LACTATE 5 MG/ML VIAL IV ONE (08:00)
[2021-10-04] MEDS ORDERED: DIPHENHYDRAMINE HCL INJ 50 MG/ML VIAL IV ONE (08:00)
[2021-10-04 08:02] LABS: BASOPHILS % 0.3 % (0.0-1.0); HEMATOCRIT 44.3 % (38.2-49.6); HEMOGLOBIN 14.4 g/dL (14.0-18.0); LYMPHOCYTES # (AUTO) 2.3 (1.0-3.2); LYMPHOCYTES % 32.1 % (18.0-39.1); MEAN CORPUSCULAR HEMOGLOBIN 31.1 pg (28-32); MEAN CORPUSCULAR HGB CONC 32.5 g/dL (31-35); MEAN CORPUSCULAR VOLUME 95.7 fL (81-99); MONOCYTES # (AUTO) 0.5 (0.2-0.8); MONOCYTES % 6.5 % (4.4-11.3); NEUTROPHILS # (AUTO) 4.3 (2.1-6.9); NEUTROPHILS % 60.8 % (38.7-80.0); PLATELET COUNT 312 x10e3/uL (140-360); RED BLOOD COUNT 4.63 x10e6/uL (4.3-5.7); RED CELL DISTRIBUTION WIDTH 12.4 % (11.7-14.4)
[2021-10-04] MEDS ORDERED: SODIUM CHLORIDE 0.9% 1000ML 1,000 ML ONE (08:03)
[2021-10-04] MEDS ORDERED: DIPHENHYDRAMINE HCL INJ 50 MG/ML VIAL ONE (08:03)
[2021-10-04 08:31] LABS: ALANINE AMINOTRANSFERASE 16 IU/L (0-55); ALBUMIN 4.4 g/dL (3.5-5.0); ALBUMIN/GLOBULIN RATIO 0.7 (0.8-2.0); ALKALINE PHOSPHATASE 121 IU/L (40-150); ANION GAP 21.4 mmol/L (8-16); BLOOD UREA NITROGEN 26 mg/dL (7-26); BUN/CREATININE RATIO 15 (6-25); CALCIUM 9.2 mg/dL (8.4-10.2); CARBON DIOXIDE 23 mmol/L (22-29); CHLORIDE 102 mmol/L (98-107); CREATINE KINASE 44 IU/L (30-200); CREATININE, SERUM 1.74 mg/dL (0.72-1.25); GLUCOSE 145 mg/dL (74-118); LIPASE 27 U/L (8-78); POTASSIUM 4.4 mmol/L (3.5-5.1); SODIUM 142 mmol/L (136-145)
[2021-10-04] MEDS: Morphine 4mg Syringe 4 MG/ML INJ IV STA ×2 (08:45→08:47)
[2021-10-04] MEDS ORDERED: IOPAMIDOL 370 MG/ML 100 ML INFUS..BTL INJ ONE (09:20)
== END 2021-10-04 11:11 | disposition home or self-care (01) ==
LOC: ER 07:57
DX: R11.2 Nausea with vomiting, unspecified (principal); F12.90 Cannabis use, unspecified, uncomplicated; I10 Essential (primary) hypertension; J45.909 Unspecified asthma, uncomplicated; B20 Human immunodeficiency virus [HIV] disease; F17.210 Nicotine dependence, cigarettes, uncomplicated
CPT/HCPCS: 36415; 74177; 80053; 82550; 82553; 83690; 83735; 84484; 85025; 93005; 99284; J1200; J7030; Q9967

== ENCOUNTER 2021-10-08 13:30 | Emergency (ER) | payer MEDICAID ==
[~2021-10-08] VITALS: Ht 200.7 cm; Wt 70.8 kg
[2021-10-08] MEDS ORDERED: DIPHENHYDRAMINE HCL INJ 50 MG/ML VIAL IV PRN (13:45)
[2021-10-08] MEDS ORDERED: ONDANSETRON HCL INJ 2MG/ML 2ML 2 MG/ML VIAL IV PRN (13:45)
[2021-10-08] MEDS ORDERED: HALOPERIDOL 5 MG TAB PO ONE (13:45)
[2021-10-08] MEDS ORDERED: HYDRALAZINE HCL 20 MG/ML VIAL IV PRN (13:45)
[2021-10-08 14:04] LABS: BASOPHILS % 0.5 % (0.0-1.0); EOSINOPHILS % 0.2 % (0.0-6.0); HEMATOCRIT 41.2 % (38.2-49.6); HEMOGLOBIN 13.7 g/dL (14.0-18.0); LYMPHOCYTES # (AUTO) 2.2 (1.0-3.2); LYMPHOCYTES % 38.8 % (18.0-39.1); MEAN CORPUSCULAR HEMOGLOBIN 31.4 pg (28-32); MEAN CORPUSCULAR HGB CONC 33.3 g/dL (31-35); MEAN CORPUSCULAR VOLUME 94.3 fL (81-99); MONOCYTES # (AUTO) 0.4 (0.2-0.8); MONOCYTES % 7.4 % (4.4-11.3); NEUTROPHILS # (AUTO) 2.9 (2.1-6.9); NEUTROPHILS % 52.9 % (38.7-80.0); PLATELET COUNT 275 x10e3/uL (140-360); RED BLOOD COUNT 4.37 x10e6/uL (4.3-5.7); RED CELL DISTRIBUTION WIDTH 11.9 % (11.7-14.4)
[2021-10-08] MEDS ORDERED: SODIUM CHLORIDE 0.9% 1000ML 1,000 ML IV ONE (14:15)
[2021-10-08] MEDS ORDERED: HALOPERIDOL LACTATE 5 MG/ML VIAL ONE (14:17)
[2021-10-08] MEDS ORDERED: SODIUM CHLORIDE 0.9% 1000ML 1,000 ML ONE (14:18)
[2021-10-08] MEDS ORDERED: SODIUM CHLORIDE 0.45% 1,000 ML ONE (14:18)
[2021-10-08 14:43] LABS: ANION GAP 18.5 mmol/L (8-16); POTASSIUM 3.5 mmol/L (3.5-5.1)
[2021-10-08 14:44] LABS: ALBUMIN/GLOBULIN RATIO 0.8 (0.8-2.0); CALCIUM 9.3 mg/dL (8.4-10.2); CREATININE, SERUM 1.49 mg/dL (0.72-1.25)
[2021-10-08 19:02] LABS: AMPHETAMINES SCREEN,URINE POSITIVE (NEGATIVE); BENZODIAZEPINES SCREEN,URINE NEGATIVE (NEGATIVE); PHENCYCLIDINE SCREEN,URINE NEGATIVE (NEGATIVE)
[2021-10-08] MEDS ORDERED: REGLAN10 MG PO (19:12)
== END 2021-10-08 19:24 | disposition home or self-care (01) ==
LOC: ER 13:45
DX: N17.9 Acute kidney failure, unspecified (principal); R11.2 Nausea with vomiting, unspecified; F12.90 Cannabis use, unspecified, uncomplicated; I10 Essential (primary) hypertension; J45.909 Unspecified asthma, uncomplicated; B20 Human immunodeficiency virus [HIV] disease; F17.210 Nicotine dependence, cigarettes, uncomplicated
CPT/HCPCS: 36415; 80053; 80307; 83690; 85025; 99284; J0360; J1200; J1630; J2405; J7030

== ENCOUNTER 2021-12-30 08:48 | Emergency (ER) | payer MEDICAID ==
[~2021-12-30] VITALS: Ht 200.7 cm; Wt 70.8 kg
[~2021-12-30 08:48] MED LIST changes: +REGLAN10 MG PO
[2021-12-30] MEDS ORDERED: SODIUM CHLORIDE 0.9% 1000ML 1,000 ML IV STA (09:45)
[2021-12-30] MEDS ORDERED: HALOPERIDOL LACTATE 5 MG/ML VIAL IV ONE (09:45)
[2021-12-30] MEDS ORDERED: Morphine 4mg INJECTION 4 MG/ML INJ IV STA (09:45)
[2021-12-30] MEDS ORDERED: DIPHENHYDRAMINE HCL INJ 50 MG/ML VIAL IV ONE (09:45)
[2021-12-30 10:56] LABS: CLARITY,URINE CLEAR (CLEAR); COLOR,URINE YELLOW (YELLOW); KETONES,URINE 1+ (NEGATIVE); LEUKOCYTE ESTERASE ,URINE NEGATIVE (NEGATIVE); NITRITE,URINE NEGATIVE (NEGATIVE); PROTEIN,URINE DIPSTICK >=300 (NEGATIVE)
[2021-12-30 10:57] LABS: AMPHETAMINES SCREEN,URINE NEGATIVE (NEGATIVE); PHENCYCLIDINE SCREEN,URINE NEGATIVE (NEGATIVE)
[2021-12-30 10:59] LABS: BENZODIAZEPINES SCREEN,URINE NEGATIVE (NEGATIVE)
[2021-12-30 11:10] LABS: BACTERIA,URINE MANY /HPF; EPITHELIAL CELLS,URINE FEW /LPF; RBC,URINE 0-5 /HPF (0-5); WBC,URINE (MAN) 0-5 /HPF (0-5)
[2021-12-30 11:13] LABS: BASOPHILS % 0.4 % (0.0-1.0); HEMATOCRIT 36.9 % (38.2-49.6); HEMOGLOBIN 12.6 g/dL (14.0-18.0); LYMPHOCYTES # (AUTO) 1.3 (1.0-3.2); LYMPHOCYTES % 22.8 % (18.0-39.1); MEAN CORPUSCULAR HEMOGLOBIN 32.3 pg (28-32); MEAN CORPUSCULAR HGB CONC 34.1 g/dL (31-35); MEAN CORPUSCULAR VOLUME 94.6 fL (81-99); MONOCYTES # (AUTO) 0.5 (0.2-0.8); MONOCYTES % 9.1 % (4.4-11.3); NEUTROPHILS # (AUTO) 3.7 (2.1-6.9); NEUTROPHILS % 67.3 % (38.7-80.0); PLATELET COUNT 235 x10e3/uL (140-360); RED CELL DISTRIBUTION WIDTH 12.3 % (11.7-14.4)
[2021-12-30 11:51] LABS: ALBUMIN 4.1 g/dL (3.5-5.0); ANION GAP 17.5 mmol/L (8-16); CALCIUM 9.4 mg/dL (8.4-10.2); CREATININE, SERUM 1.98 mg/dL (0.72-1.25); POTASSIUM 3.5 mmol/L (3.5-5.1)
== END 2021-12-30 12:44 | disposition home or self-care (01) ==
LOC: ER 08:57
DX: R11.2 Nausea with vomiting, unspecified (principal); N28.9 Disorder of kidney and ureter, unspecified; F12.10 Cannabis abuse, uncomplicated; F11.10 Opioid abuse, uncomplicated; F15.10 Other stimulant abuse, uncomplicated
CPT/HCPCS: 36415; 74022; 80053; 80307; 81001; 83690; 83735; 85025; 99284; C9113; J1200; J1630; J2270; J7030